=== PATIENT | male | born 1955 | race Caucasian/White ===

== ENCOUNTER 2022-05-13 13:58 | Outpatient (CLI) | payer MEDICARE, OTHER, SELFPAY ==
--- NOTE | 2022-05-14 10:12 | WPDPFTINT ---
PFT Procedure Performed PFT Procedure Performed Spirometry with Pre/Post Bronchodilator Plethysmography (Lung Vol) Diffusing Cap (DLCO) Flow Vol Loop PFT Interpretation DOS: 05/13/2022 REQUESTING: Marie Marinelli [facility] REASON FOR TESTING: Dyspnea PULMONARY FUNCTION TESTS Results are reliable and reproducible. Spirometry: Pre-bronchodilator FEV1 is 2.93 L, 86% predicted, normal. Pre-bronchodilator FVC is 4.55 L, 102%, normal. FEV1:FVC ratio is 64%, lower limit of normal. After bronchodilator administration, there is a 9% drop in FEV1 and 7% drop in FVC. The FEV1:FVC ratio is 63%, decreased. These changes are not statistically significant. Lung volumes: Total lung capacity is 7.39 L, 105%, normal. Residual volumes is 2.84 L, 121%, noraml. RV/TLC is 38%, normal. Diffusion: DLCO 25.3, 93%, normal. DLCO/VA 4.01, 98%, normal. Flow volume loop: Normal. IMPRESSION: Normal spirometry, lung volumes and diffusion. He has borderline airflow obstruction with FEV1 at the lowest end of normal, which decreases slightly with bronchodilator. This does not preclude use of a bronchodilator if he responds clinically. No prior studies for comparison. Beatriz Carrasco MD
--- NOTE | 2022-05-14 10:19 | P.PCNSIX_ITS ---
Six Minute Walk Procedure Procedure Performed Pulmonary Stress Test (6 min walk) Six Minute Walk Six Minute Walk: DOS: 05/13/2022 REQUESTING: ENRIQUE Oliva REASON: Dyspnea SIX MINUTE WALK This test was conducted per ATS standards. The patient has an initial saturation of 93% and pulse of 93. He walked while breathing room air and using a walk aid due to his hip. Lowest saturation was 89% briefly. Heart rate varied from 73- 105. He did not require supplemental O2 during the test. He completed 182.8 meters, 600 feet which is less than normal. His Susan dyspnea rating was 1, low. Saturation at end of recovery was 95%, and pulse was 98. IMPRESSION: No supplemental O2 indicated with exertion. Distance walked is less than predicted. Beatriz Carrasco MD
== END 2022-05-13 13:59 | disposition home or self-care (01) ==
PROVIDERS: PCP Physician Assistant; Visit Provider Nurse Practitioner
DX: R06.09 Other forms of dyspnea (principal)
CPT/HCPCS: 94060; 94618; 94726; 94729

== ENCOUNTER 2022-05-14 13:16 | Outpatient (CLI) | payer MEDICARE, OTHER, SELFPAY ==
--- NOTE | ~2022-05-14 | CT_ITS ---
EXAMINATION:CT lung screening DATE: 05/14/2022 13:35 INDICATION: Personal history of nicotine dependence. Current smoker with 94 pack year history. TECHNIQUE: Computed tomography (CT) of the chest was performed without intravenous contrast. Automate d exposure control and iterative reconstruction technique were employed. The dose-length product (DLP ) was 398.75 mGy-cm. COMPARISON: None. FINDINGS: There is mild emphysema. There is minimal atelectasis bilaterally. There is a 6 mm groundgl ass opacity in left upper lobe. Calcified right lung nodules are consistent with old granulomatous di sease. There is a 2 mm nodule in left upper lobe. No pleural effusion. The heart size is normal. Ther e are coronary artery calcifications. No pericardial effusion. There is diffuse hepatic steatosis. Mi ld aortic atherosclerosis is noted. There is mild thoracic spondylosis. There is an old fracture of T 1 spinous process with nonunion. IMPRESSION: 1. Lung-RADS category 2: Benign appearance or behavior. Continue annual screening with noncontrast lo w-dose chest CT in 12 months. Reviewed, dictated and finalized at location A. RECOVERY UNIT OPERATOR IMPRESSION: 1. Lung-RADS category 2: Benign appearance or behavior. Continue annual screeni ng with noncontrast low-dose chest CT in 12 months.
== END 2022-05-14 13:17 | disposition home or self-care (01) ==
LOC: ANHIMG 13:17
PROVIDERS: PCP Physician Assistant; Visit Provider Nurse Practitioner
DX: Z12.2 Encounter for screening for malignant neoplasm of respiratory organs (principal); Z87.891 Personal history of nicotine dependence
CPT/HCPCS: 71271

== ENCOUNTER 2022-06-01 18:11 | Inpatient (IN) | payer MEDICARE, OTHER, SELFPAY ==
[2022-06-01] VITALS (9 sets, daily range): BP systolic 150–155; BP diastolic 94–105; PULSE 90–118; RESP 14–27; TEMP 36.7; O2SAT 92–100
--- NOTE | ~2022-06-01 | XR_ITS ---
EXAMINATION: XR chest 2V Exam Date/Time: 06/01/2022 18:50 CDT HISTORY: chest pain, COUGH Comparison: 10/03/2013. RESULT: Lines, tubes, and devices: None. Lungs and pleura: Lateral view severely limited by degree of inspiration and summation artifact. Seg mental and subsegmental bibasilar opacities. Left costophrenic angle blunting. Cardiomediastinal silhouette: Stable. Other: No acute osseous or upper abdominal finding. IMPRESSION: Bibasilar consolidation may represent pneumonia in the appropriate clinical context. Small left pleur al effusion. Reviewed, dictated and finalized at location K. IMPRESSION: Bibasilar consolidation may represent pneumonia in the appropriate clinical con text. Small left pleural effusion.
--- NOTE | ~2022-06-01 | XR_ITS ---
Portable chest x-ray Comparison: 06/01/2022 Clinical History: Shortness of breath Findings: There is extensive bibasilar and perihilar groundglass pulmonary disease, worsened from pr ior exam. No definite pleural effusions. Cardiomediastinal silhouette is stable. Bones and soft tiss ues are unremarkable. Impression: Worsening presumed bibasilar/perihilar pulmonary edema. Coracoclavicular infection. Reviewed, dictated and finalized at location M. Impression: Worsening presumed bibasilar/perihilar pulmonary edema. Coracoclavicular infect ion.
--- NOTE | ~2022-06-01 | XR_ITS ---
Portable chest x-ray Comparison: 06/02/2022 Clinical History: Wheezing Findings: Questionable minimal residual pulmonary edema. Pulmonary findings are significantly improv ed from prior exam. No pleural effusion. Cardiomediastinal silhouette is stable. Bones and soft tiss ues are unremarkable. Impression: Possible minimal residual pulmonary edema. Pulmonary findings are significantly improved from prior e xam. Reviewed, dictated and finalized at location . Impression: Possible minimal residual pulmonary edema. Pulmonary findings are significantly improved from prior exam.
--- NOTE | ~2022-06-01 | CT_ITS ---
EXAMINATION: CTA chest PE protocol DATE: 06/02/2022 13:56 INDICATION: Dyspnea. Elevated d-dimer. TECHNIQUE: Computed tomography (CT) pulmonary angiogram of the chest was performed with 100 mL Omnipa que-350 intravenous contrast. Additional 3D reconstructions utilizing coronal maximum intensity proje ction (MIP) were performed. Automated exposure control and iterative reconstruction technique were em ployed. The dose-length product was 1139.93 mGy-cm. COMPARISON: None FINDINGS: . contrast opacification of the pulmonary arteries. There is mild streak artifact from dense contrast in the superior vena cava and right atrium. Mild scattered respiratory motion artifact which decreas es sensitivity in some of the smaller subsegmental pulmonary arteries. No pulmonary embolism. Small b ilateral posterior layering pleural effusions with associated dependent compressive atelectasis in th e bilateral upper and more prominently in the lower lobes. Additional mild discoid atelectasis at the right middle lobe and lingula. No pneumonia. Mild smooth septal line thickening at the apices and toby ng bases consistent with mild pulmonary edema. Heart size is normal. Atherosclerotic coronary artery calcific lesion. No pericardial effusion. Thoracic aorta is normal in caliber. No pathologically enla rged thoracic lymphadenopathy. Diffuse hepatic steatosis. Mild thoracic spondylosis. IMPRESSION: 1. No pulmonary embolism. 2. Mild pulmonary edema and small bilateral posterior layering pleural effusion with associated bilat eral dependent compressive atelectasis. Reviewed, dictated and finalized at location L. IMPRESSION: 1. No pulmonary embolism. 2. Mild pulmonary edema and small bilateral posterior layering pleural effusion with associated bilateral dependent compressive atelectasis.
--- NOTE | 2022-06-01 18:33 | ECG_ITS ---
Measurements Intervals [place] Rate: 100 P: VA: 0 QRS: -14 QRSD: 101 T: 31 QT: 396 QTc: 512 Interpretive Statements ATRIAL FIBRILLATION WITH RAPID VENTRICULAR RESPONSE DELAYED PRECORDIAL R/S TRANSITION NONSPECIFIC T-WAVE ABNORMALITY- HIGH LATERAL LEADS ABNORMAL ECG NO PREVIOUS ECG AVAILABLE FOR COMPARISON Electronically Signed On 06-02-2022 0:42:31 CDT by Abilio Juarez D.O.
[2022-06-01] MEDS: ASPIRIN 81 MG CHEWABLE TABLET 324 MG PO (18:47)
[2022-06-01 18:55] LABS: Basophils Absolute Auto 0.1 K/mm3 (0.0-0.1); Basophils Percent Auto 0.8 % (0.2-1.2); Eosinophils Absolute Auto 0.1 K/mm3 (0-0.3); Eosinophils Percent Auto 1.4 % (0-4.4); Hematocrit 40.5 % (42.0-52.0); Hemoglobin 13.4 g/dL (14.0-18.0); Immature Granulocyte Absolute 0.03 K/mm3 (0.00-0.031); Immature Granulocyte Percent A 0.3 % (0-0.5); Lymphocytes Absolute Auto 1.86 K/mm3 (0.9-3.2); Lymphocytes Percent Auto 21.1 % (18.3-44.2); Mean Corpuscular HGB Conc 33.1 g/dl (32-36); Mean Corpuscular Hemoglobin 29.9 pg (26-34); Mean Corpuscular Volume 90.4 fl (80-100); Mean Platelet Volume 9.2 fl (7.4-10.4); Monocytes Absolute Auto 0.6 K/mm3 (0.1-0.6); Monocytes Percent Auto 6.3 % (2.6-8.5); Neutrophils Absolute Auto 6.2 K/mm3 (1.3-6.7); Neutrophils Percent Auto 70.1 % (45.5-73.1); Platelet Count Result 276 k/mm3 (150-375); Red Blood Count 4.48 M/mm3 (4.6-6.20); Red Cell Distribution Width 14.5 % (11.5-14.5); White Blood Count 8.8 K/mm3 (4.5-10.0)
[2022-06-01 19:04] LABS: Alanine Aminotransferase 44 U/L (6-50); Alkaline Phosphatase 83 U/L (38-126); Anion Gap 5 mmol/L (8-16); Aspartate Amino Transferase 47 U/L (17-59); Bilirubin,Total 0.6 mg/dL (0.2-1.3); Blood Urea Nitrogen 12 mg/dL (9-20); Calcium 8.8 mg/dL (8.4-10.2); Carbon Dioxide 30 mmol/L (22-30); Chloride 102 mmol/L (98-107); Estimated Glomerular Filt Rate > 60; Glucose 188 mg/dL (65-110); Lipase 44 U/L (23-300); Potassium 3.3 mmol/L (3.4-5.0); Sodium 137 mmol/L (137-145)
[2022-06-01 19:05] LABS: INR 1.2; Prothrombin Time 14.4 Seconds (11.1-14.7)
[2022-06-01 19:16] LABS: Troponin I < 0.012 ng/mL (0.000-0.034)
[2022-06-01] MEDS: IPRATROPIUM BR 0.02% INH SOLN 0.5 MG/2.5 ML VIAL INHALATION (19:40)
[2022-06-01] MEDS: ALBUTEROL SULFATE NEB 2.5 MG/3 ML INH INHALATION (19:41)
--- NOTE | 2022-06-01 19:46 | ED.GENADULT ---
HPI - General Adult General Chief complaint: Shortness of Breath/Dyspnea Stated complaint: sob, weakness Time Seen by Provider: 06/01/22 19:17 History of Present Illness HPI narrative: Patient 67-year-old gentleman who presents the emergency department with chief complaint of shortness of breath. Patient reports that for some time he has been short of breath and reports has been coughing more. The patient also reports that he has had some discomfort in his chest and decided to call EMS today to be transported to the emergency department. Patient was placed on oxygen prehospital and is currently on oxygen at this time the patient reports that he is not on home oxygen. The patient denies fever reports that he has had a dry cough its been nonproductive. Patient denies history of CHF Related Data Home Medications Medication Instructions Recorded Confirmed aspirin 81 mg tablet,delayed 81 mg PO DAILY 03/27/19 04/28/22 release (Adult Aspirin Regimen) clonazepam 0.5 mg tablet 0.5 mg PO BID PRN 03/27/19 04/28/22 loratadine 10 mg tablet (Allergy 10 mg PO DAILY 03/27/19 04/28/22 Relief (loratadine)) cholecalciferol (vitamin D3) 250 8,000 unit PO DAILY 07/18/19 04/28/22 mcg (10,000 unit) capsule mecobalamin (vitamin B12) 5,000 1,200 mcg PO 07/18/19 04/28/22 mcg disintegrating tablet melatonin 3 mg capsule PO .qhs 10/10/19 04/28/22 bupropion HCl 150 mg tablet,12 hr 150 mg PO DAILY 01/15/20 04/28/22 sustained-release diphenhydramine HCl 25 mg tablet 75 mg PO BID PRN 01/15/20 04/28/22 (Benadryl Allergy) paliperidone 6 mg tablet,extended 6 mg PO DAILY 01/15/20 04/28/22 release 24 hr trazodone 100 mg tablet 100 mg PO QPM 01/15/20 04/28/22 Allergies Allergy/AdvReac Type Severity Reaction Status Date / Time niacin Allergy Mild Flushing Verified 04/28/22 14:13 Sulfa (Sulfonamide Allergy Unknown Unknown Verified 04/28/22 14:13 Antibiotics) lactose milk products AdvReac Intermediate GI upset Uncoded 04/28/22 14:13 Review of Systems Review of Systems: A 10 system review of systems was completed on the patient and is negative except for what is stated in the HPI. Nursing and ancillary documentation was reviewed. [facility] Past Medical History Medical History Acquired hypothyroidism Atrial fibrillation Coronary artery disease Morbid obesity with BMI of 40.0-44.9, adult Poor dentition Type 2 DM with CKD stage 3 and hypertension Family History Family History Mother Depression Hypertension Family history of arthritis Diabetes mellitus Father Family history of alcoholism Sibling Family history of alcoholism Grandparent Family history of cardiovascular disease Social History Social History Smoking packs per day: 1 Smoking cigarettes per day: 20.0 Smoking status: Current every day smoker Alcohol intake: never Exam Narrative: GENERAL: Well-appearing, well-nourished, and in no acute distress. HEAD: Normocephalic, atraumatic. EYES: PERRLA and EOMI. ENT: Nares clear, no rhinorrhea or epistaxis. Mucous membranes moist. NECK: Supple. CHEST: Clear to auscultation. No respiratory distress. HEART: Regular rate and rhythm. No murmur heard. Normal peripheral pulses. ABDOMEN: Soft, nontender, nondistended, normal active bowel sounds. EXTREMITIES: Normal range of motion. +1 edema. SKIN: Warm, dry, no rash. NEURO: No focal deficits. Alert and oriented x3. PSYCH: Normal mood and affect. Course Vital Signs Vital signs: Vital Signs Temperature 36.7 C 06/01/22 18:24 Pulse Rate 90 06/01/22 18:24 Respiratory Rate 27 H 06/01/22 18:24 Blood Pressure 152/105 H 06/01/22 18:24 Pulse Oximetry 93 06/01/22 18:24 Oxygen Delivery Room Air 06/01/22 18:24 Temperature 36.7 C 06/01/22 18:24 Pulse Rate
[2022-06-01 20:36] LABS: Lactic Acid Reflex 1.1 mmol/L (0.7-2.0)
[2022-06-01 20:46] LABS: NT Pro B Type Natriuretic Pept 2660 pg/mL (19.9-100)
[2022-06-01 21:03] LABS: Influenza A QL RT-PCR Negative (Negative); Influenza B QL RT-PCR Negative (Negative); RSV RNA, RT-PCR Negative (Negative); SARS-CoV-2 RNA PCR Negative
[2022-06-01 21:10] LABS: Procalcitonin 0.1 ng/mL
--- NOTE | 2022-06-01 21:23 | PC.NURSE ---
pt. requesting medication for neuropathy, ERP made aware no further orders.
--- NOTE | 2022-06-01 21:42 | PM.IMHP ---
H&P: HPI History of Present Illness Date/Time: 06/01/22 21:42 Chief Complaint: Shortness of breath Narrative: This is an 67-year-old male with past medical history significant for COPD/emphysema, patient smokes 2 packs of cigarettes daily, obesity, type 2 diabetes mellitus, orally controlled, generalized anxiety disorder, dyslipidemia, coronary artery disease, atrial fibrillation. Patient comes to the emergency room after having 3 days of dry cough, chest congestion, shortness of breath, generalized malaise, fevers, chills, poor appetite, muscle aches and pains, generalized weakness, fatigue. In emergency room patient had low oxygen saturation was placed on supplemental oxygen by nasal cannula on route to the hospital. X-ray of the chest was reported as: IMPRESSION: Bibasilar consolidation may represent pneumonia in the appropriate clinical context. Small left pleural effusion. Review of Systems Review of Systems: Generalized malaise, muscle aches and pains, shortness of breath, cough, chest congestion, poor appetite. Constitutional: Constitutional: Reports chills, Reports fatigue, Reports fever(s), Reports lethargy, Reports malaise, Reports poor appetite and Reports weakness Eyes: Eyes: Denies change in vision ENT: Denies dysphagia and Denies odynophagia Cardiovascular: Cardiovascular: Reports chest pain, Denies radiating jaw, neck or arm pain and Denies palpitations Respiratory: Respiratory: Denies change in phlegm color, Reports chest congestion, Reports cough, Denies excessive phlegm production, Reports dyspnea and Reports wheezing Gastrointestinal: Gastrointestinal: Denies abdominal pain, Denies dyspepsia, Denies heartburn, Denies diarrhea, Denies nausea and Denies vomiting Genitourinary: Genitourinary: Denies dysuria Musculoskeletal: Musculoskeletal: Reports muscle weakness Integumentary/Breasts: Skin/Breast: Denies rash Neurologic: Denies focal weakness and Denies Sensory deficit (Neuro) Psychiatric: Psychiatric: Reports no additional psychiatric complaints and Reports as per HPI Endocrine: Endocrine: Denies cold intolerance, Denies flushing, Denies heat intolerance, Denies polyphagia, Denies polydipsia and Denies palpitations Hematologic/Lymphatic: Hematologic/Lymphatic: Reports no additional hematologic/lymphatic complaints and Reports as per HPI Allergic/Immunologic: Allergic/Immunologic: Reports no additional allergic/immunologic complaints and Reports as per HPI [facility] Past Medical History Medical History Acquired hypothyroidism Atrial fibrillation Coronary artery disease Morbid obesity with BMI of 40.0-44.9, adult Poor dentition Type 2 DM with CKD stage 3 and hypertension Family History Family History Mother Depression Hypertension Family history of arthritis Diabetes mellitus Father Family history of alcoholism Sibling Family history of alcoholism Grandparent Family history of cardiovascular disease Social History Social History Smoking packs per day: 2 Smoking cigarettes per day: 40.0 Years smoked: 47 Smoking pack-years: 94.00 Smoking status: Current every day smoker Tobacco type: cigarettes Second hand tobacco smoke exposure: Yes Alcohol intake: never Substance use: never Substance use type: does not use Lack of Transportation: No Lack of Food: Never True Current Housing: I Have Housing Concerned About Future Housing: No Difficulty Paying Gas/Electric Bills: No Difficulty Paying for Meds: No Currently Unemployed: No Education: High School Diploma/GED Difficulty w/ Childcare or Family Care: No Spiritual care concerns: No Meds Home Medications and Allergies Home Medications Medication Instructions Recorded Confirmed Type aspirin 81 mg tablet,delaye
--- NOTE | 2022-06-01 22:00 | PC.NURSE ---
pt. requesting to take anxiety medications that he has in his room. DANIEL COSTA okay for pt. to take 25 mg tab po hydroxizine.
[2022-06-01 23:09] LABS: Troponin I < 0.012 ng/mL (0.000-0.034)
[2022-06-01 23:34] LABS: Appearance Urine Clear (Clear); Bacteria Urine None Seen /hpf; Bilirubin Urine Negative (Negative); Blood Urine Negative (Negative); Color Urine Yellow (Yellow); Glucose Urine UA 3+ mg/dL (Negative); Ketones Urine Negative (Negative); Leukocyte Esterase Ur Negative LEU/UL (Negative); Need Manual Microscopic Reviewed; Nitrate Urine Negative (Negative); Non Pathogenic Casts 0-2; Protein Urine 1+ mg/dL (Negative); RBC Urine 0-2 /hpf (0-2); Specific Grav Ur 1.037 (1.001-1.035); Squamous Epithelial Cell Urine None seen /hpf (Few); Urobilinogen Urine 0.2 mg/dL (<2.0); WBC Urine 0-5 /hpf; pH Urine 5.5 (5.0-9.0)
[2022-06-01 23:35] LABS: Add Urine Microscopic? YES
--- NOTE | 2022-06-01 23:57 | ADMGEN ---
This patient, Cas Ruiz, was admitted to Medical Room 254-01. Patient/family oriented to hospital policies and general routines including ID bracelet, bed and alarms, visiting hours, pain management, procedures, bathroom and other care routines, personal items, smoking policy, room service/diet, and visiting hours. Information on how to activate the Rapid Response Team has been discussed. Patient/Family are encouraged to report perceived risks to care and to ask questions if they do not understand what they are told or what they should do.
[2022-06-02] VITALS (46 sets, daily range): BP systolic 143–180; BP diastolic 86–138; PULSE 86–138; RESP 18–38; TEMP 36.2–37.2; O2SAT 92–100; BMI 57.1
--- NOTE | 2022-06-02 | ECHO_ITS ---
Patient Info Name: Cas Ruiz Age: 67 years : 1955 Gender: Male Ht: 72 in Wt: 292 lbs BSA: 2.65 m2 HR: 130 bpm BP: 154 / 104 mmHg Heart Rhythm: Atrial Fibrillation Technical Quality: Fair Exam Date: 06/02/2022 11:23 AM Exam Location: [facility] Card Pulmonary Patient Status: Inpatient Admit Date: 06/02/2022 Staff Ordering Physician: Francheska Valles APRN Blueprint Blocker: Antonio Louis RDCS, RT Attending Provider: Soo Guzman MD Referring Physician: Reena ACEVES; Exam Type: CA echo dop color flow w con Study Info Indications R60.0 - Localized edema J90 - Pleural effusion, not elsewhere classified R06.00 - Dyspnea, unspecified Complete two-dimensional, color flow and Doppler transthoracic echocardiogram is performed with contrast to opacify the left ventricle and to improve the deliniation of the left ventricle endocardial borders. Summary 1. Left ventricular systolic function is severely globally reduced, estimated at 30-35%. 2. Definity contrast administered improved wall motion interpretation. 3. Left ventricular chamber dimension is moderately enlarged. 4. There is mildly increased left ventricular wall thickness. 5. The left ventricular diastolic function is normal. 6. E/e' 9 is minimally elevated. 7. Right ventricular systolic function is mildly reduced and with abnormal TAPSE 1.6 cm. 8. Left atrial chamber dimension is mildly enlarged. 9. There is mild mitral valve regurgitation. 10. There is mild tricuspid valve regurgitation. 11. There is trivial pericardial effusion. Left Ventricle E/e' 9 is minimally elevated. Definity contrast administered improved wall motion interpretation. Left ventricular systolic function is severely globally reduced, estimated at 30-35%. Left ventricular chamber dimension is moderately enlarged. There is mildly increased left ventricular wall thickness. The left ventricular diastolic function is normal. Right Ventricle Right ventricular systolic function is mildly reduced and with abnormal TAPSE 1.6 cm. Right ventricular chamber dimension is normal. Left Atria Left atrial chamber dimension is mildly enlarged. Right Atria Right atrial chamber dimension is normal. Aortic Valve The aortic valve is trileaflet. There is no aortic valve stenosis. There is no aortic valve regurgitation. Pulmonic Valve There is no pulmonic regurgitation. Mitral Valve There is no mitral valve stenosis. There is mild mitral valve regurgitation. Tricuspid Valve RVSP is not calculated due to an inadequate TR jet. There is mild tricuspid valve regurgitation. Pericardium/Pleural There is trivial pericardial effusion. Inferior Vena Cava Normal inferior vena cava with >50% collapse upon inspiration consistent with normal right atrial pressure, 5 mmHg. Aorta The aortic root size at the sinus of Valsalva is normal. Left Ventricular Outflow Tract Name Value Normal LVOT 2D LVOT Diameter 2.09 cm LVOT Doppler LVOT Peak Gradient 2 mmHg LVOT Mean Gradient 1 mmHg LVOT VTI
[2022-06-02] MEDS: ALBUTEROL SULFATE NEB 2.5 MG/3 ML INH INHALATION ×4 (01:11→11:12)
[2022-06-02] MEDS: IPRATROPIUM BR 0.02% INH SOLN 0.5 MG/2.5 ML VIAL INHALATION ×7 (01:12→23:22)
[2022-06-02] MEDS: MELATONIN 5 MG TABLET PO ×2 (01:17→20:57)
[2022-06-02] MEDS: traZODone HCL 50 MG TABLET 100 MG PO ×2 (01:17→20:56)
[2022-06-02] MEDS: METOPROLOL TARTRATE 50 MG TAB PO ×4 (01:17→21:00)
[2022-06-02 02:43] LABS: Troponin I < 0.012 ng/mL (0.000-0.034)
[2022-06-02 02:51] LABS: Glucose Point of Care 152 mg/dl (65-105)
[2022-06-02] MEDS: clonazePAM (*CRX) 0.5 MG TABLET PO (03:17)
[2022-06-02] MEDS: hydrOXYzine HCL 25 MG TABLET PO ×3 (06:53→21:00)
[2022-06-02] MEDS: FUROSEMIDE INJ 40 MG/4 ML VIAL IV PUSH ×2 (07:30→16:52)
[2022-06-02] MEDS: methylPREDNISolone SOD SUCC 125 MG VIAL IV PUSH (07:30)
[2022-06-02 07:32] LABS: Glucose Point of Care 206 mg/dl (65-105)
[2022-06-02 07:40] LABS: Alveolar/Arterial O2 Gradient 529.2 mmHg; Base Excess ABG -0.4 mEq/l (+/-2.0); Fractional Inspired Oxygen 100 %; HCO3 ABG 25.4 mEq/l (22.0-26.0); Oxygen Saturation ABG 98.6 % (95.0-100.0); Oxyhemoglobin 96.9 % THb (90.0-100.0); PCO2 ABG 46.4 mmHg (35.0-45.0); PO2 ABG 137.4 mmHg (80.0-100.0); PO2 FiO2 Ratio Arterial Blood 1.37 %; Total Hemoglobin 13.8 g/dL (12.0-18.0); pH ABG 7.357 (7.350-7.450)
[2022-06-02 07:41] LABS: Device NON-REBREATHER MASK; Site Drawn RIGHT BRACHIAL
[2022-06-02 07:41] LABS: Hematocrit 40.7 % (42.0-52.0); Hemoglobin 13.4 g/dL (14.0-18.0); Mean Corpuscular HGB Conc 32.9 g/dl (32-36); Mean Corpuscular Hemoglobin 29.9 pg (26-34); Mean Corpuscular Volume 90.8 fl (80-100); Mean Platelet Volume 9.4 fl (7.4-10.4); Platelet Count Result 287 k/mm3 (150-375); Red Blood Count 4.48 M/mm3 (4.6-6.20); Red Cell Distribution Width 14.5 % (11.5-14.5); White Blood Count 11.1 K/mm3 (4.5-10.0)
--- NOTE | 2022-06-02 07:46 | PM.IMPN ---
Progress Note: A&P Assessment and Plan (1) Acute respiratory failure with hypoxia: Code(s): J96.01 - Acute respiratory failure with hypoxia Status: Acute Assessment and Plan: Patient requiring supplemental oxygen by nasal cannula upon arrival to ED. No home O2 use. 06/02 worsening respiratory status and placed on bipap. pH 7.38, pCO2 mildly elevated 46, pO2 137 on 15L NRB, bicab not elevated suggesting acute process. Continue bipap 15/8/20/100% and titrate FiO2 to landy >90%. Consult pulmonology. Continue management for COPD and pneumonia. D-dimer elevated 1.74. CTA chest shows no PE, mild pulmonary edema and small but lateral posterior layering pleural effusions with associated bilateral dependent compressive atelectasis. (2) Pneumonia: Code(s): J18.9 - Pneumonia, unspecified organism Status: Acute Assessment and Plan: 06/02 Chest x-ray with acute worsening of bilateral infiltrates Given worsening pneumonia will escalate therapy. Patient has COPD and will given dual anti-pseudomonas coverage with Cefepime 2 grams IV Q8 hours and Levaquin 750 mg Q24 hours. check legionella, mycoplasma, pneumococcal antigens and sputum culture Check MRSA nasal swab. No MRSA risk factors apparent. lactic acid 1.1 on admission, WBC 8 to 11, Blood cultures pending. (3) COPD (chronic obstructive pulmonary disease): Code(s): J44.9 - Chronic obstructive pulmonary disease, unspecified Status: Acute Assessment and Plan: FEV1:FVC 63% with borderline airflow obstruction FEV1 on 05/14/22 PFTs. No wheezing on exam. Given solumedrol 125 mg IV x1. Will hold off on steroids at this time given worsening pneumonia. Duonebs Q4 hours. Pulmonology consulted. Etl Consultant to quit smoking. (4) PAF (paroxysmal atrial fibrillation): Code(s): I48.0 - Paroxysmal atrial fibrillation Status: Acute Assessment and Plan: Patient with afib RVR 120s, likely worsened since patient reportedly did not take medications prior to admission and with worsening pneumonia. Check TSH. Continue management of pneumonia. Monitor telemetry. Increase metoprolol 50 mg q.8 hours and continue Eliquis. Consult Cardiology if persists or worsens. Check Echocardiogram (5) Tobacco abuse: Code(s): Z72.0 - Tobacco use Status: Chronic Assessment and Plan: Nicotine patch as needed (6) CASI on CPAP: Code(s): G47.33 - Obstructive sleep apnea (adult) (pediatric); Z99.89 - Dependence on other enabling machines and devices Status: Chronic Assessment and Plan: Currently on bipap (7) Morbid obesity with BMI of 40.0-44.9, adult: Code(s): E66.01 - Morbid (severe) obesity due to excess calories; Z68.41 - Body mass index [BMI] 40.0-44.9, adult Status: Acute Assessment and Plan: Lifestyle and diet modifications (8) Type 2 DM with CKD stage 3 and hypertension: Code(s): E11.22 - Type 2 diabetes mellitus with diabetic chronic kidney disease; I12.9 - Hypertensive chronic kidney disease with stage 1 through stage 4 chronic kidney disease, or unspecified chronic kidney disease; N18.30 - Chronic kidney disease, stage 3 unspecified Status: Chronic Assessment and Plan: Carb consistent 1800 calorie diet. Accu-checks AC/HS with moderate aspart sliding scale. Continue SGLT-2 and DPP-4. Goal 140-180 (9) Major depressive disorder in partial remission: Qualifiers: Major depression recurrence: recurrent Qualified Code(s): F33.41 - Major depressive disorder, recurrent, in partial remission Code(s): F32.4 - Major depressive disorder, single episode, in partial remission Status: Chronic Assessment and Plan: With anxiety, Continue home meds (10) Coronary artery disease: Qualifiers: Associated angina: without angina Coronary Disease-Associated Artery/Lesion type: circle artery [place] vs. transplanted heart: circle heart Qualified Code(s):
[2022-06-02 07:54] LABS: Alanine Aminotransferase 41 U/L (6-50); Alkaline Phosphatase 83 U/L (38-126); Anion Gap 7 mmol/L (8-16); Aspartate Amino Transferase 43 U/L (17-59); Bilirubin,Total 0.8 mg/dL (0.2-1.3); Blood Urea Nitrogen 12 mg/dL (9-20); Calcium 8.7 mg/dL (8.4-10.2); Carbon Dioxide 28 mmol/L (22-30); Chloride 103 mmol/L (98-107); Estimated CRCL calculation 76 ml/min; Estimated Glomerular Filt Rate > 60; Glucose 203 mg/dL (65-110); Potassium 3.2 mmol/L (3.4-5.0); Sodium 138 mmol/L (137-145)
--- NOTE | 2022-06-02 08:15 | PC.NURSE ---
This patient, Cas Ruiz, was received from [[phone] ] on 06/02/22 at 0805. Patient/family oriented to unit policies and routines
[2022-06-02 08:53] LABS: CRP 3.3 mg/dL (<1.0); Magnesium 1.7 mg/dL (1.6-2.3)
[2022-06-02 08:56] LABS: Hemoglobin A1C 9.4 % (<5.7)
[2022-06-02 09:00] LABS: D Dimer 1.75 ug/mL (<0.48)
[2022-06-02 09:18] LABS: Lactic Acid Reflex 1.3 mmol/L (0.7-2.0)
[2022-06-02] MEDS: CEFEPIME 2 GM/NS 50 ML 2 GM/50 ML BAG IVPB ×2 (09:30→16:52)
[2022-06-02] MEDS: POTASSIUM CHLORIDE INJ 40 MEQ in SODIUM CHLORIDE 0.9% IV 500 ML 130 MEQ IVPB (10:25)
[2022-06-02] MEDS: POTASSIUM CHLORIDE 20 MEQ TABLET 40 MEQ PO (12:12)
[2022-06-02 12:13] LABS: Glucose Point of Care 225 mg/dl (65-105)
[2022-06-02] MEDS: PANTOPRAZOLE 40 MG TABLET BY MOUTH (12:13)
[2022-06-02] MEDS: PARoxetine 20 MG TABLET 40 MG PO (12:13)
[2022-06-02] MEDS: buPROPion HCL SR (12 HR) 150 MG TAB PO (12:13)
[2022-06-02] MEDS: MAGNESIUM OXIDE 400 MG TABLET PO ×2 (12:13→16:54)
[2022-06-02] MEDS: PRAVASTATIN SODIUM 20 MG TABLET PO (12:14)
[2022-06-02] MEDS: APIXABAN 5 MG TABLET BY MOUTH ×2 (12:14→16:50)
[2022-06-02] MEDS: EMPAGLIFLOZIN 10 MG TABLET BY MOUTH (12:14)
[2022-06-02] MEDS: ASPIRIN 81 MG ENTERIC TABLET PO (12:14)
[2022-06-02] MEDS: INSULIN ASPART (*BKC) 100 UNITS/ML SUB-Q (12:26)
--- NOTE | 2022-06-02 13:05 | PC.NURSE ---
Spoke with CAMRON Jc regarding patient's elevated BP. New order for 5mg IVP Lopressor x1 now
[2022-06-02] MEDS: METOPROLOL TARTRATE INJ 5 MG/5 ML VIAL IV PUSH (13:10)
--- NOTE | 2022-06-02 14:23 | PC.NURSE ---
Spoke with CAMRON Jeronimo regarding patient's BP. After 5mg Lopressor IVP pt's BP is 180/104. New order for 0.5mg Ativan IVP x1 now.
[2022-06-02] MEDS: LORazepam INJ (*CRX) 2 MG/ML VIAL 0.5 MG IV PUSH (14:27)
[2022-06-02 16:28] LABS: Alveolar/Arterial O2 Gradient 317.8 mmHg; Base Excess ABG 0.5 mEq/l (+/-2.0); Carboxyhemoglobin 0.1 % THb (0-2.0); Fractional Inspired Oxygen 60 %; HCO3 ABG 25.1 mEq/l (22.0-26.0); Methemoglobin ABG 0.3 %THb (0-1.5); Oxygen Content ABG 18.8 %vol (16.0-22.0); Oxygen Saturation ABG 93.3 % (95.0-100.0); Oxyhemoglobin 92.2 % THb (90.0-100.0); PCO2 ABG 40.2 mmHg (35.0-45.0); PO2 ABG 65.8 mmHg (80.0-100.0); Reduced Hemoglobin 7.4 %THb (0-5.0); Total Hemoglobin 14.5 g/dL (12.0-18.0); pH ABG 7.413 (7.350-7.450)
[2022-06-02 16:30] LABS: Device HIGH FLOW NASAL CANN; Modified Allen's Test Pass; Site Drawn RIGHT RADIAL
[2022-06-02 16:51] LABS: Glucose Point of Care 189 mg/dl (65-105)
--- NOTE | 2022-06-02 19:21 | PHAR ---
PT'S HOME MED PALIPERIDONE ER 6 MG TABS VERIFIED BY PHARMACY
--- NOTE | 2022-06-02 19:40 | PM.CNPUL ---
Assessment and Plan Assessment and plan (1) Acute respiratory failure with hypoxia: Code(s): J96.01 - Acute respiratory failure with hypoxia Status: Acute Assessment and Plan: This 67-year-old man is admitted with suspected pneumonia, had rapid atrial fibrillation due to respiratory distress, mild hypercapnea, resolved. He is now on lower O2, on broad coverage for possible pneumonia. His urine antigens are pending. He will need a Home O2 evaluation prior to discharge. I believe that most of his presentation is due to new systolic dysfunction, triggered by poor control of diabetes, hypertension - his BP is 170/100; he has atrial fib which is not new but it is out of control, had rapid atrial fib and a Rapid Response called this morning. I am sure that he is noncomplaint with meds at home. He told me he had a hard time remembering to take his meds. (2) Pneumonia: Code(s): J18.9 - Pneumonia, unspecified organism Status: Acute Assessment and Plan: Possible pneumonia; WBC 11 K, CRP 3.3, on antibiotics an urine antigens are pending. He needs to have cardiology evaluation for systolic dysfunction, and see about trimming back antibiotics as soon as possible. He does not have sputum for analysis. (3) COPD (chronic obstructive pulmonary disease): Code(s): J44.9 - Chronic obstructive pulmonary disease, unspecified Status: Acute Assessment and Plan: Had PFTs 05/14/2022, mild /borderline obstructive airways disease, FEV1/FVC 64% predicted, low end of normal. he is on no COPD medications at home. He would benefot from treatment of COPD with long acting bronchodilators. (4) Tobacco abuse: Code(s): Z72.0 - Tobacco use Status: Chronic Assessment and Plan: Smoking about 2 ppd, at times, more. He is in the hospital, and this is always a good opportunity to implement tobacco cessation with hopes to continue efforts after discharge. He is not on nicotine replacement therapy. This might be useful. (5) CASI on CPAP: Code(s): G47.33 - Obstructive sleep apnea (adult) (pediatric); Z99.89 - Dependence on other enabling machines and devices Status: Chronic Assessment and Plan: Sleep Study (CPAP titration study completed.) - 05/04/2018, optimal pressure was 10 cm, and he may be on that now. Sleep Study (Moderate CASI.) - 03/05/2008 He would benefit from having repeat study as his needs may have changed, luis with new systolic CHF. This is an out patient issue. He is not stable enough for an ApneaLink at this time. He is using BiPAP now in the hospital. Plan Start Trelegy 100, one puff a day. Start spironolactone 12.5 mg BID. Needs more blood pressure control. His metoprolol is now TID. Cardiology consult requested. Home O2 study before discharge. Will need follow up for sleep issues after discharge. His most recent study was 05/04/2018 10 cm CPAP. he says he is compliant. History of Present Illness History of Present Illness Consult date: 06/02/22 Requesting physician: Francheska Valles APRN Chief complaint: Pneumonia, Dyspnea Narrative: patient was seen about 19:45 in 205, IMU NEW CONSULT: Cas Ruiz is a 67-year-old man admitted with increased shortness of breath and swelling which started gradually 6 months ago. He says that his legs have been swelling, he noticed increased weight without increased appetite, increased sleepiness, fatigue, and decreased exercise tolerance. About 3 months ago, he noticed occasional chest pains, sometimes with exertion. He called 911 because he could only walk 10 feet before stopping to rest. In the ER, he said that
[2022-06-02 20:05] LABS: Glucose Point of Care 177 mg/dl (65-105)
[2022-06-03] VITALS (34 sets, daily range): BP systolic 113–145; BP diastolic 64–92; PULSE 85–114; RESP 18–24; TEMP 36.1–37.1; O2SAT 91–98
[2022-06-03] MEDS: CEFEPIME 2 GM/NS 50 ML 2 GM/50 ML BAG IVPB ×3 (02:01→16:46)
[2022-06-03 04:10] LABS: Basophils Percent Auto 0.1 % (0.2-1.2); Hemoglobin 12.7 g/dL (14.0-18.0); Immature Granulocyte Absolute 0.08 K/mm3 (0.00-0.031); Immature Granulocyte Percent A 0.5 % (0-0.5); Lymphocytes Percent Auto 9.3 % (18.3-44.2); Mean Corpuscular HGB Conc 33.4 g/dl (32-36); Mean Corpuscular Hemoglobin 29.4 pg (26-34); Mean Platelet Volume 9.4 fl (7.4-10.4); Monocytes Absolute Auto 0.9 K/mm3 (0.1-0.6); Monocytes Percent Auto 5.8 % (2.6-8.5); Neutrophils Absolute Auto 12.7 K/mm3 (1.3-6.7); Neutrophils Percent Auto 84.3 % (45.5-73.1); Platelet Count Result 292 k/mm3 (150-375); Red Blood Count 4.32 M/mm3 (4.6-6.20); Red Cell Distribution Width 14.1 % (11.5-14.5)
[2022-06-03 04:20] LABS: Alanine Aminotransferase 36 U/L (6-50); Albumin Level 3.9 g/dL (3.5-5.1); Alkaline Phosphatase 71 U/L (38-126); Anion Gap 7 mmol/L (8-16); Aspartate Amino Transferase 34 U/L (17-59); Blood Urea Nitrogen 20 mg/dL (9-20); Calcium 8.8 mg/dL (8.4-10.2); Carbon Dioxide 27 mmol/L (22-30); Chloride 105 mmol/L (98-107); Estimated CRCL calculation 76 ml/min; Estimated Glomerular Filt Rate > 60; Glucose 131 mg/dL (65-110); Magnesium 1.8 mg/dL (1.6-2.3); Potassium 3.8 mmol/L (3.4-5.0); Sodium 139 mmol/L (137-145)
[2022-06-03] MEDS: IPRATROPIUM BR 0.02% INH SOLN 0.5 MG/2.5 ML VIAL INHALATION ×5 (05:12→20:49)
[2022-06-03] MEDS: hydrOXYzine HCL 25 MG TABLET PO ×3 (06:20→21:36)
[2022-06-03] MEDS: METOPROLOL TARTRATE 50 MG TAB PO ×3 (06:20→21:36)
[2022-06-03 08:11] LABS: Glucose Point of Care 137 mg/dl (65-105)
[2022-06-03] MEDS: FLUTICASONE/UMECLIDIN/VILANTER 100-62.5-25 MCG ELLIPTA 1 PUFF INHALATION (08:38)
[2022-06-03] MEDS: CHOLECALCIFEROL 1,000 UNITS TABLET 2000 UNITS PO (08:58)
[2022-06-03] MEDS: PARoxetine 20 MG TABLET 40 MG PO (08:58)
[2022-06-03] MEDS: SPIRONOLACTONE 12.5 MG TABLET PO ×2 (08:58→16:46)
[2022-06-03] MEDS: ASPIRIN 81 MG ENTERIC TABLET PO (08:58)
[2022-06-03] MEDS: EMPAGLIFLOZIN 10 MG TABLET BY MOUTH (08:59)
[2022-06-03] MEDS: PANTOPRAZOLE 40 MG TABLET BY MOUTH (08:59)
[2022-06-03] MEDS: LORATADINE 10 MG TABLET PO (08:59)
[2022-06-03] MEDS: POTASSIUM CHLORIDE 20 MEQ TABLET.ER 40 MEQ PO (08:59)
[2022-06-03] MEDS: MAGNESIUM OXIDE 400 MG TABLET PO ×2 (08:59→16:45)
[2022-06-03] MEDS: buPROPion HCL SR (12 HR) 150 MG TAB PO (08:59)
[2022-06-03] MEDS: APIXABAN 5 MG TABLET BY MOUTH ×2 (09:00→16:45)
[2022-06-03] MEDS: PRAVASTATIN SODIUM 20 MG TABLET PO (09:00)
[2022-06-03] MEDS: FUROSEMIDE INJ 40 MG/4 ML VIAL IV PUSH ×2 (09:00→16:45)
[2022-06-03] MEDS: CYANOCOBALAMIN 500 MCG TABLET PO (09:00)
[2022-06-03 11:47] LABS: Glucose Point of Care 217 mg/dl (65-105)
--- NOTE | 2022-06-03 12:08 | PM.CNCAR ---
Assessment and Plan Assessment and plan (1) Systolic dysfunction: Code(s): I51.9 - Heart disease, unspecified Status: Acute Assessment and Plan: New onset. Euvolemic. Probably non-ischemic with negative troponin due to CASI, chronic rapid atrial fib. Dilated cardiomyopathy. Start Entresto 24-26 mg BID. On Metoprolol. Discuss Life vest and he is interested to prevent sudden cardiac arrest. (2) COPD (chronic obstructive pulmonary disease): Code(s): J44.9 - Chronic obstructive pulmonary disease, unspecified Status: Acute (3) Pneumonia: Code(s): J18.9 - Pneumonia, unspecified organism Status: Acute Assessment and Plan: On antibiotics. (4) Tobacco abuse: Code(s): Z72.0 - Tobacco use Status: Chronic Assessment and Plan: Counseled regarding smoking cessation. (5) Hypertension: Code(s): I10 - Essential (primary) hypertension Status: Acute Assessment and Plan: Mildly high. (6) Dyslipidemia: Code(s): E78.5 - Hyperlipidemia, unspecified Status: Acute Assessment and Plan: On Pravastatin. (7) Atrial fibrillation: Qualifiers: Atrial fibrillation type: unspecified chronic Qualified Code(s): I48.20 - Chronic atrial fibrillation, unspecified Code(s): I48.91 - Unspecified atrial fibrillation Status: Acute Assessment and Plan: [id number] 3. On Eliquis and Metoprolol. Rate control with Metoprolol. (8) Coronary artery disease: Qualifiers: Coronary Disease-Associated Artery/Lesion type: [place] artery [place] vs. transplanted heart: [place] heart Associated angina: without angina Qualified Code(s): I25.10 - Atherosclerotic heart disease of [place] coronary artery without angina pectoris Code(s): I25.10 - Atherosclerotic heart disease of [place] coronary artery without angina pectoris Status: Chronic Assessment and Plan: Stable. History of Present Illness History of Present Illness Consult date/time: 06/03/22 12:08 Reason For Visit: Pneumonia, Dyspnea Narrative: 67 yr old man who is my regular cardiology patient and a patient of CAMRON Mcfarlane, presents to hospital due to sob. He has a history of CAD with 1 stent in 2008 in [facility] (unknown which hospital), atrial fibrillation, DM, hypertension, dyslipidemia, CASI on CPAP (sees PCP). States he go sob with dry cough, and found to have pneumonia and EF 30-35% while previously in 2018 EF 55-60%. Reports LANG walking short distance about 20 feet. He smokes 2 ppd. Denies chest pain, orthopnea, PND, edema, dizziness, palpitations. Cardiovascular Procedures Echo/MUGA:: Echo (EF 55-60%, mild LVH, diastolic dysfunction (E/E' 13), mild biatrial enlargement.) - 03/01/2018 Electrophysiology:: 04/28/22 EKG: Holter (Sinus rhythm, HR range 56-132 bpm; average HR 77 bpm; 387 PAC's, 7 couplets, 41 trigeminy; 4 atrial fib episodes with total duration of 9.8 minutes and HR range 78-132 bpm.) - 04/27/2018 EKG (Atrial fibrillation at 87 bpm.) - 01/31/2018 Stress Tests:: MPI (Lexiscan myoview: Negative for ischemia.) - 06/17/2018 MPI (Lexiscan myoview: Negative for ischemia.) - 10/04/2013 Sleep Study (CPAP titration study completed.) - 05/04/2018 Sleep Study (Moderate CASI.) - 03/05/2008 Review of Systems Review of Systems: All systems reviewed & are unremarkable except as noted in HPI and below Constitutional: Constitutional: Denies chills and Denies fever(s) Cardiovascular: Cardiovascular: Reports as per HPI, Denies chest pain, Denies irregular heart rhythm, Denies leg edema and Denies lightheadedness Respiratory: Respiratory: Reports as per HPI, Reports dyspnea and Reports dyspnea on exertion Gastrointestinal: Gastrointestinal: Reports as per HPI and Denies abdominal pain Genitourinary: Genitourinary: Reports as per HPI and Denies dysuria Musculoskeletal: Musculoskeletal: Reports as per HPI Neurologic: Reports as per
[2022-06-03] MEDS: INSULIN ASPART (*BKC) 100 UNITS/ML SUB-Q (12:38)
--- NOTE | 2022-06-03 15:55 | P.PNIM_ITS ---
Progress Note: A&P Assessment and Plan (1) Acute respiratory failure with hypoxia: Code(s): J96.01 - Acute respiratory failure with hypoxia Status: Acute Assessment and Plan: Patient requiring supplemental oxygen by nasal cannula upon arrival to ED. No home O2 use. 06/02 worsening respiratory status and placed on bipap. pH 7.38, pCO2 mildly elevated 46, pO2 137 on 15L NRB, bicab not elevated suggesting acute process. Continue bipap 15/8/20/100% and titrate FiO2 to landy >90%. Consult pulmonology. Continue management for COPD and pneumonia. D-dimer elevated 1.74. CTA chest shows no PE, mild pulmonary edema and small but lateral posterior layering pleural effusions with associated bilateral dependent compressive atelectasis. (2) Pneumonia: Code(s): J18.9 - Pneumonia, unspecified organism Status: Acute Assessment and Plan: 06/02 Chest x-ray with acute worsening of bilateral infiltrates Given worsening pneumonia will escalate therapy. Patient has COPD and will given dual anti-pseudomonas coverage with Cefepime 2 grams IV Q8 hours and Levaquin 7 50 mg Q24 hours. check legionella, mycoplasma, pneumococcal antigens and sputum culture Check MRSA nasal swab. No MRSA risk factors apparent. lactic acid 1.1 on admission, WBC 8 to 11, Blood cultures pending. (3) COPD (chronic obstructive pulmonary disease): Code(s): J44.9 - Chronic obstructive pulmonary disease, unspecified Status: Acute Assessment and Plan: FEV1:FVC 63% with borderline airflow obstruction FEV1 on 05/14/22 PFTs. No wheezing on exam. Given solumedrol 125 mg IV x1. Will hold off on steroids at this time given worsening pneumonia. Duonebs Q4 hours. Pulmonology consulted. 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 (4) PAF (paroxysmal atrial fibrillation): Code(s): I48.0 - Paroxysmal atrial fibrillation Status: Acute Assessment and Plan: Patient with afib RVR 120s, likely worsened since patient reportedly did not take medications prior to admission and with worsening pneumonia. Check TSH. Continue management of pneumonia. Monitor telemetry. Increase metoprolol 50 mg q.8 hours and continue Eliquis. Consult Cardiology if persists or worsens. Check Echocardiogram (5) Tobacco abuse: Code(s): Z72.0 - Tobacco use Status: Chronic Assessment and Plan: Nicotine patch as needed (6) CASI on CPAP: Code(s): G47.33 - Obstructive sleep apnea (adult) (pediatric); Z99.89 - Dependence on other enabling machines and devices Status: Chronic Assessment and Plan: Currently on bipap (7) Morbid obesity with BMI of 40.0-44.9, adult: Code(s): E66.01 - Morbid (severe) obesity due to excess calories; Z68.41 - Body mass index [BMI] 40.0-44.9, adult Status: Acute Assessment and Plan: Lifestyle and diet modifications (8) Type 2 DM with CKD stage 3 and hypertension: Code(s): E11.22 - Type 2 diabetes mellitus with diabetic chronic kidney disease; I12.9 - Hypertensive chronic kidney disease with stage 1 through stage 4 chronic kidney disease, or unspecified chronic kidney disease; N18.30 - Chronic kidney disease, stage 3 unspecified Status: Chronic Assessment and Plan: Carb consistent 1800 calorie diet. Accu-checks AC/HS with moderate aspart sliding scale. Continue SGLT-2 and DPP-4. Goal 140-180 (9) Major depressive disorder in partial remission: Qualifiers: Major depression recurrence: recurrent Qualified Code(s): F33.41 - Major depressive disorder, recurrent, in partial remission Code(s): F32.4 - Major depressive d
[2022-06-03 16:22] LABS: Glucose Point of Care 129 mg/dl (65-105)
[2022-06-03] MEDS: LORazepam INJ (*CRX) 2 MG/ML VIAL 0.5 MG IV PUSH (17:50)
--- NOTE | 2022-06-03 18:33 | PM.PNPUL ---
Progress Note: A&P Assessment and Plan (1) Acute respiratory failure with hypoxia: Code(s): J96.01 - Acute respiratory failure with hypoxia Status: Acute Assessment and Plan: This 67-year-old man is admitted with suspected pneumonia, had rapid atrial fibrillation due to respiratory distress, mild hypercapnia, resolved. He is now on lower O2 ast 4 L/min, on broad coverage for possible pneumonia. His urine antigens are pending. He will need a Home O2 evaluation prior to discharge. I believe that most of his presentation is due to new systolic dysfunction, triggered by poor control of diabetes, hypertension - his BP was high, 170/100; bp is much lower. His atrial fib is not new but it was out of control, had rapid atrial fib and a Rapid Response called 06/02. He has been noncomplaint with meds at home. (2) Pneumonia: Code(s): J18.9 - Pneumonia, unspecified organism Status: Acute Assessment and Plan: Possible pneumonia; Initial WBC 11 K, CRP 3.3, and WBC increased to 15 K on Jun 03. He is on Cefepime and Levaquin. Urine antigens are pending. He does not have sputum for analysis. (3) COPD (chronic obstructive pulmonary disease): Code(s): J44.9 - Chronic obstructive pulmonary disease, unspecified Status: Acute Assessment and Plan: Had PFTs 05/14/2022, mild /borderline obstructive airways disease, FEV1/FVC 64% predicted, low end of normal. He was on no COPD medications at home. He is on Trelegy now. (4) Tobacco abuse: Code(s): Z72.0 - Tobacco use Status: Chronic Assessment and Plan: Smoking about 2 ppd, at times, more. He is in the hospital, and this is always a good opportunity to implement tobacco cessation with hopes to continue efforts after discharge. I talked with him about nicotine replacement therapy. He said that he has used this in the past, and it helped. (5) CASI on CPAP: Code(s): G47.33 - Obstructive sleep apnea (adult) (pediatric); Z99.89 - Dependence on other enabling machines and devices Status: Chronic Assessment and Plan: Sleep Study (CPAP titration study completed.) - 05/04/2018, optimal pressure was 10 cm, and he may be on that now. Sleep Study (Moderate CASI.) - 03/05/2008 He is using BiPAP in the hospital now, and an ApneaLink is not going to add anything of value while he is in the hospital except to determine if he may need O2 at night with PAP. Plan Continue Trelegy 100, one puff a day. He is on Entresto; Dr Juarez's consult noted. Blood pressure is better controlled. Home O2 study before discharge. Will need follow up for sleep issues after discharge. His most recent study was 05/04/2018 10 cm CPAP. He says he is compliant. There is no compliance information in the system. I offered to see him in follow up for COPD and sleep issues. Dr Bradshaw is his primary care doctor. Add nicotine patch. he has used before and says it really helped. Subjective Date/time seen: 06/03/22 18:33 Interval history: Hospital follow up: Cas Ruiz is a 67-year-old man admitted with increased shortness of breath and swelling which started gradually 6 months ago. He says that his legs have been swelling, he noticed increased weight without increased appetite, increased sleepiness, fatigue, and decreased exercise tolerance. About 3 months ago, he noticed occasional chest pains, sometimes with exertion.? He called 911 because he could only walk 10 feet before stopping to rest. In the ER, he
[2022-06-03] MEDS: NICOTINE (*PBKC) 21 MG PATCH 1 PATCH TRANSDERM (18:39)
[2022-06-03 20:11] LABS: Glucose Point of Care 169 mg/dl (65-105)
[2022-06-03] MEDS: ACETAMINOPHEN 325 MG TABLET 650 MG PO (20:16)
[2022-06-03] MEDS: traZODone HCL 50 MG TABLET 100 MG PO (20:17)
[2022-06-03] MEDS: SACUBITRIL/VALSARTAN 24-26 MG TABLET 1 TAB PO (20:18)
[2022-06-03] MEDS: MELATONIN 5 MG TABLET PO (20:18)
[2022-06-04] VITALS (39 sets, daily range): BP systolic 120–139; BP diastolic 65–97; PULSE 56–133; RESP 16–189; TEMP 36–36.6; O2SAT 87–96
[2022-06-04] MEDS: IPRATROPIUM BR 0.02% INH SOLN 0.5 MG/2.5 ML VIAL INHALATION ×6 (00:05→20:02)
[2022-06-04] MEDS: CEFEPIME 2 GM/NS 50 ML 2 GM/50 ML BAG IVPB ×3 (00:37→16:43)
[2022-06-04 04:59] LABS: Basophils Absolute Auto 0.1 K/mm3 (0.0-0.1); Basophils Percent Auto 0.5 % (0.2-1.2); Eosinophils Absolute Auto 0.1 K/mm3 (0-0.3); Eosinophils Percent Auto 0.6 % (0-4.4); Hematocrit 40.8 % (42.0-52.0); Hemoglobin 13.5 g/dL (14.0-18.0); Immature Granulocyte Absolute 0.04 K/mm3 (0.00-0.031); Immature Granulocyte Percent A 0.4 % (0-0.5); Lymphocytes Absolute Auto 2.55 K/mm3 (0.9-3.2); Lymphocytes Percent Auto 23.9 % (18.3-44.2); Mean Corpuscular HGB Conc 33.1 g/dl (32-36); Mean Corpuscular Hemoglobin 30.1 pg (26-34); Mean Corpuscular Volume 91.1 fl (80-100); Mean Platelet Volume 9.3 fl (7.4-10.4); Monocytes Absolute Auto 0.8 K/mm3 (0.1-0.6); Monocytes Percent Auto 7.9 % (2.6-8.5); Neutrophils Absolute Auto 7.1 K/mm3 (1.3-6.7); Neutrophils Percent Auto 66.7 % (45.5-73.1); Platelet Count Result 293 k/mm3 (150-375); Red Blood Count 4.48 M/mm3 (4.6-6.20); Red Cell Distribution Width 14.5 % (11.5-14.5); White Blood Count 10.7 K/mm3 (4.5-10.0)
[2022-06-04 05:17] LABS: Alanine Aminotransferase 34 U/L (6-50); Albumin Level 3.6 g/dL (3.5-5.1); Alkaline Phosphatase 73 U/L (38-126); Anion Gap 7 mmol/L (8-16); Aspartate Amino Transferase 43 U/L (17-59); Bilirubin,Total 0.8 mg/dL (0.2-1.3); Blood Urea Nitrogen 25 mg/dL (9-20); Calcium 8.4 mg/dL (8.4-10.2); Carbon Dioxide 31 mmol/L (22-30); Chloride 100 mmol/L (98-107); Estimated CRCL calculation 76 ml/min; Estimated Glomerular Filt Rate > 60; Glucose 128 mg/dL (65-110); Potassium 3.1 mmol/L (3.4-5.0); Sodium 138 mmol/L (137-145)
[2022-06-04] MEDS: FLUTICASONE/UMECLIDIN/VILANTER 100-62.5-25 MCG ELLIPTA 1 PUFF INHALATION (07:05)
--- NOTE | 2022-06-04 07:59 | PM.PNCARD ---
Progress Note: A&P Assessment and Plan (1) Systolic dysfunction: Code(s): I51.9 - Heart disease, unspecified Status: Acute Assessment and Plan: New onset. Acute systolic heart failure. Probably non-ischemic with negative troponin due to CASI, chronic rapid atrial fib. Dilated cardiomyopathy. Started Entresto 24-26 mg BID. On Metoprolol, Jardiance. On Lasix 40 mg IV BID. Discuss Life vest and he is interested to prevent sudden cardiac arrest, and this was ordered. (2) COPD (chronic obstructive pulmonary disease): Code(s): J44.9 - Chronic obstructive pulmonary disease, unspecified Status: Acute (3) Pneumonia: Code(s): J18.9 - Pneumonia, unspecified organism Status: Acute Assessment and Plan: On antibiotics. (4) Tobacco abuse: Code(s): Z72.0 - Tobacco use Status: Chronic Assessment and Plan: Counseled regarding smoking cessation. (5) Hypertension: Code(s): I10 - Essential (primary) hypertension Status: Acute Assessment and Plan: Stable. (6) Dyslipidemia: Code(s): E78.5 - Hyperlipidemia, unspecified Status: Acute Assessment and Plan: On Pravastatin. (7) Atrial fibrillation: Qualifiers: Atrial fibrillation type: unspecified chronic Qualified Code(s): I48.20 - Chronic atrial fibrillation, unspecified Code(s): I48.91 - Unspecified atrial fibrillation Status: Acute Assessment and Plan: [id number] 3. On Eliquis and Metoprolol. Rate control with Metoprolol. Added Digoxin 125 mcg daily. (8) Coronary artery disease: Qualifiers: Coronary Disease-Associated Artery/Lesion type: [place] artery [place] vs. transplanted heart: [place] heart Associated angina: without angina Qualified Code(s): I25.10 - Atherosclerotic heart disease of [place] coronary artery without angina pectoris Code(s): I25.10 - Atherosclerotic heart disease of [place] coronary artery without angina pectoris Status: Chronic Assessment and Plan: Stable. Subjective Date/time seen: 06/04/22 07:59 Interval history: Reports breathing is improving. No chest pains. Exam Const: General: cooperative, healthy appearing and comfortable Orientation/consciousness: oriented to person, oriented to place and oriented to time Resp: Auscultation: no crackles, no rales, rhonchi, wheezes and diminished lung sounds Cardio: Rate: tachycardic Rhythm: abnormal rhythm Heart sounds: no murmurs Peripheral pulses: dorsalis pedis present Neuro: General: oriented to person, oriented to place and oriented to time Extrem: Right lower extremity: no edema Left lower extremity: no edema Objective Data Vital Signs Vital Signs: Vital Signs - 24 hr 06/03/22 08:38 06/03/22 08:42 06/03/22 08:49 Temperature Pulse Rate 90 87 95 Respiratory Rate 20 20 20 Blood Pressure Pulse Oximetry 97 Oxygen Delivery High Flow Nasal Cannula Oxygen Flow Rate 8 06/03/22 08:00 06/03/22 10:40 06/03/22 08:00 Temperature Pulse Rate 101 H Respiratory Rate Blood Pressure Pulse Oximetry 96 96 Oxygen Delivery High Flow Nasal Cannula High Flow Nasal Cannula Oxygen Flow Rate 8 4 06/03/22 10:00 06/03/22 09:10 06/03/22 11:38 Temperature Pulse Rate 92 97 Respiratory Rate 20 Blood Pressure Pulse Oximetry 96 Oxygen Delivery High Flow Nasal Cannula Oxygen Flow Rate 6 06/03/22 11:41 06/03/22 11:46 06/03/22 11:52 Temperature 97.0 F L Pulse Rate 97 98 104 H Respiratory Rate 20 20 22 H Blood Pressure 140/64 Pulse Oximetry 95 94 Oxygen Delivery Nasal Cannula Oxygen Flow Rate 4 06/03/22 12:00 06/03/22 12:00 06/03/22 13:57 Temperature Pulse Rate 114 H 102 H Respiratory Rate Blood Pressure Pulse Oximetry 96 Oxygen Delivery High Flow Nasal Cannula Oxygen Flow Rate 2 06/03/22 14:53 06/03/22 14:00 06/03/22 16:26 Temperature 96.9 F L Puls
[2022-06-04 08:25] LABS: Glucose Point of Care 139 mg/dl (65-105)
[2022-06-04] MEDS: CHOLECALCIFEROL 1,000 UNITS TABLET 2000 UNITS PO (08:33)
[2022-06-04] MEDS: PANTOPRAZOLE 40 MG TABLET BY MOUTH (08:33)
[2022-06-04] MEDS: hydrOXYzine HCL 25 MG TABLET PO ×3 (08:34→21:53)
[2022-06-04] MEDS: buPROPion HCL SR (12 HR) 150 MG TAB PO (08:34)
[2022-06-04] MEDS: METOPROLOL TARTRATE 50 MG TAB PO (08:34)
[2022-06-04] MEDS: SACUBITRIL/VALSARTAN 24-26 MG TABLET 1 TAB PO ×2 (08:35→20:16)
[2022-06-04] MEDS: PARoxetine 20 MG TABLET 40 MG PO (08:35)
[2022-06-04] MEDS: SPIRONOLACTONE 12.5 MG TABLET PO ×2 (08:35→16:51)
[2022-06-04] MEDS: LORATADINE 10 MG TABLET PO (08:35)
[2022-06-04] MEDS: PRAVASTATIN SODIUM 20 MG TABLET PO (08:36)
[2022-06-04] MEDS: DIGOXIN TAB 125 MCG TABLET PO ×2 (08:36→16:43)
[2022-06-04] MEDS: POTASSIUM CHLORIDE 20 MEQ TABLET.ER 40 MEQ PO (08:36)
[2022-06-04] MEDS: APIXABAN 5 MG TABLET BY MOUTH ×2 (08:36→16:41)
[2022-06-04] MEDS: NICOTINE (*PBKC) 21 MG PATCH 1 PATCH TRANSDERM (08:36)
[2022-06-04] MEDS: MAGNESIUM OXIDE 400 MG TABLET PO ×2 (08:36→16:41)
[2022-06-04] MEDS: ASPIRIN 81 MG ENTERIC TABLET PO (08:37)
[2022-06-04] MEDS: CYANOCOBALAMIN 500 MCG TABLET PO (08:45)
[2022-06-04] MEDS: FUROSEMIDE INJ 40 MG/4 ML VIAL IV PUSH ×2 (08:45→16:43)
[2022-06-04] MEDS: EMPAGLIFLOZIN 10 MG TABLET BY MOUTH (08:46)
[2022-06-04 09:38] LABS: Alveolar/Arterial O2 Gradient 47.8 mmHg; Base Excess ABG 3.1 mEq/l (+/-2.0); Fractional Inspired Oxygen 21 %; HCO3 ABG 26.6 mEq/l (22.0-26.0); Oxygen Content ABG 18.3 %vol (16.0-22.0); Oxygen Saturation ABG 91.7 % (95.0-100.0); Oxyhemoglobin 89.7 % THb (90.0-100.0); PCO2 ABG 37.2 mmHg (35.0-45.0); PO2 ABG 57.4 mmHg (80.0-100.0); PO2 FiO2 Ratio Arterial Blood 2.73 %; Site Drawn RIGHT RADIAL; Total Hemoglobin 14.5 g/dL (12.0-18.0); pH ABG 7.472 (7.350-7.450)
[2022-06-04 09:39] LABS: Modified Allen's Test Pass
--- NOTE | 2022-06-04 10:52 | HOMEO2EVAL ---
Evaluation was performed at [facility] Home Oxygen Evaluation RC: Home Oxygen (O2) Evaluation Start: 06/04/22 09:20 Freq: ONCE Status: Active Protocol: RPE Activity Type Activity Date Activity User E-sign Co-sign Detail Recorded Client Recorded Date Recorded By Document 06/04/22 10:20 [email or web address] [email or web address] 06/04/22 10:51 DJO Document 06/04/22 10:25 [email or web address] [email or web address] 06/04/22 10:51 DJO Document 06/04/22 10:30 [email or web address] [email or web address] 06/04/22 10:51 DJO Document 06/04/22 10:35 [email or web address] [email or web address] 06/04/22 10:51 DJO Document 06/04/22 10:45 [email or web address] [email or web address] 06/04/22 10:51 DJO 06/04/22 06/04/22 06/04/22 10:20 10:25 10:30 Home O2 Evaluation [Oxygen] -Test Phase Resting Resting Resting -Oxygen Delivery Room Air Nasal Cannula Nasal Cannula -Oxygen Flow Rate (L/min) 1 2 [Pulse Oximetry] -Pulse Oximetry (90-100 %) 87 L 88 L 91 [Pulse Rate] -Pulse Rate (60-100 beats/min) 98 96 99 [Evaluation] -Activity Tolerance [Charges] -Treatment Charges O2 Evaluation - Inpatient 06/04/22 06/04/22 10:35 10:45 Home O2 Evaluation [Oxygen] -Test Phase Exercise Resting -Oxygen Delivery Nasal Cannula Nasal Cannula -Oxygen Flow Rate (L/min) 2 2 [Pulse Oximetry] -Pulse Oximetry (90-100 %) 91 91 [Pulse Rate] -Pulse Rate (60-100 beats/min) 119 H 102 H [Evaluation] -Activity Tolerance Poor [Charges] -Treatment Charges
--- NOTE | 2022-06-04 11:17 | PCRCNOTE ---
HOME O2 EVAL DONE, PT REQUIRES 2 REST AND ACTIVITY/EXERTION. [facility] - SETUP WITH [facility], CONTACT SANJAY [phone]. TRANSPORT TANK FROM [facility] IS IN ROOM AND READY FOR D/C
[2022-06-04] MEDS: LORazepam INJ (*CRX) 2 MG/ML VIAL 0.5 MG IV PUSH (12:22)
[2022-06-04 12:46] LABS: Glucose Point of Care 198 mg/dl (65-105)
--- NOTE | 2022-06-04 14:56 | PM.IMPN ---
Progress Note: A&P Assessment and Plan (1) Acute respiratory failure with hypoxia: Code(s): J96.01 - Acute respiratory failure with hypoxia Status: Acute Assessment and Plan: Patient requiring supplemental oxygen by nasal cannula upon arrival to ED. No home O2 use. 06/02 worsening respiratory status and placed on bipap. pH 7.38, pCO2 mildly elevated 46, pO2 137 on 15L NRB, bicab not elevated suggesting acute process. Continue bipap 15/8/20/100% and titrate FiO2 to landy >90%. Consult pulmonology. Continue management for COPD and pneumonia. D-dimer elevated 1.74. CTA chest shows no PE, mild pulmonary edema and small but lateral posterior layering pleural effusions with associated bilateral dependent compressive atelectasis. (2) Pneumonia: Code(s): J18.9 - Pneumonia, unspecified organism Status: Acute Assessment and Plan: 06/02 Chest x-ray with acute worsening of bilateral infiltrates Given worsening pneumonia will escalate therapy. Patient has COPD and will given dual anti-pseudomonas coverage with Cefepime 2 grams IV Q8 hours and Levaquin 750 mg Q24 hours. check legionella, mycoplasma, pneumococcal antigens and sputum culture Check MRSA nasal swab. No MRSA risk factors apparent. lactic acid 1.1 on admission, WBC 8 to 11, Blood cultures pending. (3) COPD (chronic obstructive pulmonary disease): Code(s): J44.9 - Chronic obstructive pulmonary disease, unspecified Status: Acute Assessment and Plan: FEV1:FVC 63% with borderline airflow obstruction FEV1 on 05/14/22 PFTs. No wheezing on exam. Given solumedrol 125 mg IV x1. Will hold off on steroids at this time given worsening pneumonia. Duonebs Q4 hours. Pulmonology consulted. [employer] to quit smoking. (4) PAF (paroxysmal atrial fibrillation): Code(s): I48.0 - Paroxysmal atrial fibrillation Status: Acute Assessment and Plan: Patient with afib RVR 120s, likely worsened since patient reportedly did not take medications prior to admission and with worsening pneumonia. Check TSH. Continue management of pneumonia. Monitor telemetry. Increase metoprolol 50 mg q.8 hours and continue Eliquis. Consult Cardiology if persists or worsens. Check Echocardiogram (5) Tobacco abuse: Code(s): Z72.0 - Tobacco use Status: Chronic Assessment and Plan: Nicotine patch as needed (6) CASI on CPAP: Code(s): G47.33 - Obstructive sleep apnea (adult) (pediatric); Z99.89 - Dependence on other enabling machines and devices Status: Chronic Assessment and Plan: Currently on bipap (7) Morbid obesity with BMI of 40.0-44.9, adult: Code(s): E66.01 - Morbid (severe) obesity due to excess calories; Z68.41 - Body mass index [BMI] 40.0-44.9, adult Status: Acute Assessment and Plan: Lifestyle and diet modifications (8) Type 2 DM with CKD stage 3 and hypertension: Code(s): E11.22 - Type 2 diabetes mellitus with diabetic chronic kidney disease; I12.9 - Hypertensive chronic kidney disease with stage 1 through stage 4 chronic kidney disease, or unspecified chronic kidney disease; N18.30 - Chronic kidney disease, stage 3 unspecified Status: Chronic Assessment and Plan: Carb consistent 1800 calorie diet. Accu-checks AC/HS with moderate aspart sliding scale. Continue SGLT-2 and DPP-4. Goal 140-180 (9) Major depressive disorder in partial remission: Qualifiers: Major depression recurrence: recurrent Qualified Code(s): F33.41 - Major depressive disorder, recurrent, in partial remission Code(s): F32.4 - Major depressive disorder, single episode, in partial remission Status: Chronic Assessment and Plan: With anxiety, Continue home meds (10) Coronary artery disease: Qualifiers: Coronary Disease-Associated Artery/Lesion type: [place] artery [place] vs. transplanted heart: [place] heart Associated angina: without angina Qualified Code(s):
--- NOTE | 2022-06-04 16:26 | P.PNPL_ITS ---
Progress Note: A&P Assessment and Plan (1) Acute respiratory failure with hypoxia: Code(s): J96.01 - Acute respiratory failure with hypoxia Status: Acute Assessment and Plan: This 67-year-old man is admitted with suspected pneumonia, had rapid atrial fibrillation due to respiratory distress, mild hypercapnia, resolved. He is now on lower O2 ast 4 L/min, on broad coverage for possible pneumonia. His urine an tigens are pending. He will need a Home O2 evaluation prior to discharge. I believe that most of his presentation is due to new systolic dysfunction, triggered by poor control of diabetes, hypertension - his BP was high, 170/100; bp is much lower. His atrial fib is not new but it was out of control, had rapid atrial fib and a Rapid Response called 06/02. He has been noncomplaint with meds at home. (2) Pneumonia: Code(s): J18.9 - Pneumonia, unspecified organism Status: Acute Assessment and Plan: Possible pneumonia; Initial WBC 11 K, CRP 3.3, and WBC increased to 15 K on Jun 03. He is on Cefepime and Levaquin. Urine antigens are pending. He does not have sputum for analysis. (3) COPD (chronic obstructive pulmonary disease): Code(s): J44.9 - Chronic obstructive pulmonary disease, unspecified Status: Acute Assessment and Plan: Had PFTs 05/14/2022, mild /borderline obstructive airways disease, FEV1/FVC 64% predicted, low end of normal. He was on no COPD medications at home. He is on Trelegy now. (4) Tobacco abuse: Code(s): Z72.0 - Tobacco use Status: Chronic Assessment and Plan: Smoking about 2 ppd, at times, more. He is in the hospital, and this is always a good opportunity to implement tobacco cessation with hopes to continue efforts after discharge. I talked with him about nicotine replacement therapy. He said that he has used this in the past, and it helped. (5) CASI on CPAP: Code(s): G47.33 - Obstructive sleep apnea (adult) (pediatric); Z99.89 - Dependence on other enabling machines and devices Status: Chronic Assessment and Plan: Sleep Study (CPAP titration study completed.) - 05/04/2018, optimal pressure was 10 cm, and he may be on that now. Sleep Study (Moderate CASI.) - 03/05/2008 He is using BiPAP in the hospital now, and an [facility] is not going to add anything of value while he is in the hospital except to determine if he may need O2 at night with PAP. Plan Continue Trelegy 100, one puff a day. He is on Entresto; Dr Juarez's consult noted. Blood pressure is better controlled. Home O2 study before discharge. Will need follow up for sleep issues after discharge. His most recent study was 05/04/2018 10 cm CPAP. He says he is compliant. There is no compliance information in the system. I offered to see him in follow up for COPD and sleep issues. Dr Bradshaw is his primary care doctor. Add nicotine patch. he has used before and says it really helped. Subjective Date/time seen: 06/04/22 16:26 Interval history: Hospital follow up: Cas Ruiz is a 67-year-old man admitted with increased shortness of breath and swelling which started gradually 6 months ago. He says that his legs
[2022-06-04 17:04] LABS: Glucose Point of Care 197 mg/dl (65-105)
[2022-06-04] MEDS: METOPROLOL TARTRATE 50 MG TAB 100 MG PO (20:16)
[2022-06-04] MEDS: traZODone HCL 50 MG TABLET 100 MG PO (20:16)
[2022-06-04] MEDS: MELATONIN 5 MG TABLET PO (20:17)
[2022-06-04 21:08] LABS: Glucose Point of Care 181 mg/dl (65-105)
[2022-06-05] VITALS (29 sets, daily range): BP systolic 105–159; BP diastolic 52–95; PULSE 66–125; RESP 18–22; TEMP 36–36.5; O2SAT 91–96
[2022-06-05] MEDS: IPRATROPIUM BR 0.02% INH SOLN 0.5 MG/2.5 ML VIAL INHALATION ×6 (00:38→20:26)
[2022-06-05] MEDS: CEFEPIME 2 GM/NS 50 ML 2 GM/50 ML BAG IVPB (00:58)
[2022-06-05] MEDS: LORazepam INJ (*CRX) 2 MG/ML VIAL 0.5 MG IV PUSH (01:07)
[2022-06-05 04:02] LABS: Legionella pneumophila Ag Ur Not Detected (Not Detected)
[2022-06-05 05:13] LABS: Basophils Absolute Auto 0.1 K/mm3 (0.0-0.1); Basophils Percent Auto 0.5 % (0.2-1.2); Eosinophils Absolute Auto 0.1 K/mm3 (0-0.3); Eosinophils Percent Auto 1.1 % (0-4.4); Hemoglobin 13.7 g/dL (14.0-18.0); Immature Granulocyte Absolute 0.05 K/mm3 (0.00-0.031); Immature Granulocyte Percent A 0.4 % (0-0.5); Lymphocytes Absolute Auto 1.57 K/mm3 (0.9-3.2); Lymphocytes Percent Auto 13.6 % (18.3-44.2); Mean Corpuscular HGB Conc 34.3 g/dl (32-36); Mean Corpuscular Hemoglobin 29.7 pg (26-34); Mean Corpuscular Volume 86.8 fl (80-100); Mean Platelet Volume 9.4 fl (7.4-10.4); Monocytes Absolute Auto 0.8 K/mm3 (0.1-0.6); Monocytes Percent Auto 7.3 % (2.6-8.5); Neutrophils Absolute Auto 8.9 K/mm3 (1.3-6.7); Neutrophils Percent Auto 77.1 % (45.5-73.1); Platelet Count Result 296 k/mm3 (150-375); Red Blood Count 4.61 M/mm3 (4.6-6.20); Red Cell Distribution Width 13.8 % (11.5-14.5); White Blood Count 11.5 K/mm3 (4.5-10.0)
[2022-06-05 05:31] LABS: Alanine Aminotransferase 32 U/L (6-50); Albumin Level 3.6 g/dL (3.5-5.1); Alkaline Phosphatase 73 U/L (38-126); Anion Gap 6 mmol/L (8-16); Aspartate Amino Transferase 39 U/L (17-59); Bilirubin,Total 1.1 mg/dL (0.2-1.3); Blood Urea Nitrogen 20 mg/dL (9-20); Calcium 8.5 mg/dL (8.4-10.2); Carbon Dioxide 30 mmol/L (22-30); Chloride 101 mmol/L (98-107); Estimated CRCL calculation 90 ml/min; Estimated Glomerular Filt Rate > 60; Glucose 163 mg/dL (65-110); Potassium 3.2 mmol/L (3.4-5.0); Sodium 137 mmol/L (137-145)
[2022-06-05] MEDS: hydrOXYzine HCL 25 MG TABLET PO ×3 (05:46→21:17)
--- NOTE | 2022-06-05 07:59 | PM.PNCARD ---
Progress Note: A&P Assessment and Plan (1) Systolic dysfunction: Code(s): I51.9 - Heart disease, unspecified Status: Acute Assessment and Plan: New onset. Acute systolic heart failure. Probably non-ischemic with negative troponin due to CASI, chronic rapid atrial fib. Dilated cardiomyopathy. 06/02/22 Echo: EF 30-35%, mod LVE, mild LVH, mild RV dysfunction with TAPSE 1.6 cm, mild LAE, mild MR/TR, trivial perciardial effusion. Started Entresto 24-26 mg BID. On Metoprolol, Jardiance. On Lasix 40 mg IV BID. Discuss Life vest and he is interested to prevent sudden cardiac arrest, and he currently has it on. (2) COPD (chronic obstructive pulmonary disease): Code(s): J44.9 - Chronic obstructive pulmonary disease, unspecified Status: Acute (3) Pneumonia: Code(s): J18.9 - Pneumonia, unspecified organism Status: Acute Assessment and Plan: On antibiotics. (4) Tobacco abuse: Code(s): Z72.0 - Tobacco use Status: Chronic Assessment and Plan: Counseled regarding smoking cessation. (5) Hypertension: Code(s): I10 - Essential (primary) hypertension Status: Acute Assessment and Plan: Stable. (6) Dyslipidemia: Code(s): E78.5 - Hyperlipidemia, unspecified Status: Acute Assessment and Plan: On Pravastatin. (7) Atrial fibrillation: Qualifiers: Atrial fibrillation type: unspecified chronic Qualified Code(s): I48.20 - Chronic atrial fibrillation, unspecified Code(s): I48.91 - Unspecified atrial fibrillation Status: Acute Assessment and Plan: [id number] 3. On Eliquis and Metoprolol. Rate control with Metoprolol Tartate 100 mg BID. Added Digoxin 125 mcg daily. Start Diltiazem 30 mg every 12 HR to improve HR control. (8) Coronary artery disease: Qualifiers: Coronary Disease-Associated Artery/Lesion type: [place] artery [place] vs. transplanted heart: [place] heart Associated angina: without angina Qualified Code(s): I25.10 - Atherosclerotic heart disease of [place] coronary artery without angina pectoris Code(s): I25.10 - Atherosclerotic heart disease of [place] coronary artery without angina pectoris Status: Chronic Assessment and Plan: Stable. Subjective Date/time seen: 06/05/22 07:59 Interval history: Reports breathing is improving. No chest pains. Exam Const: General: cooperative, healthy appearing and comfortable Orientation/consciousness: oriented to person, oriented to place and oriented to time Resp: Auscultation: no crackles, no rales, rhonchi, wheezes and diminished lung sounds Cardio: Rate: tachycardic Rhythm: abnormal rhythm Heart sounds: no murmurs Peripheral pulses: dorsalis pedis present Neuro: General: oriented to person, oriented to place and oriented to time Extrem: Right lower extremity: no edema Left lower extremity: no edema Objective Data Vital Signs Vital Signs: Vital Signs - 24 hr 06/04/22 08:34 06/04/22 08:36 06/04/22 08:00 Temperature Pulse Rate 120 H 120 H 133 H Respiratory Rate Blood Pressure Pulse Oximetry Oxygen Delivery Oxygen Flow Rate 06/04/22 10:00 06/04/22 10:20 06/04/22 10:25 Temperature Pulse Rate 120 H 98 96 Respiratory Rate Blood Pressure Pulse Oximetry 87 L 88 L Oxygen Delivery Room Air Nasal Cannula Oxygen Flow Rate 1 06/04/22 10:30 06/04/22 10:35 06/04/22 10:45 Temperature Pulse Rate 99 119 H 102 H Respiratory Rate Blood Pressure Pulse Oximetry 91 91 91 Oxygen Delivery Nasal Cannula Nasal Cannula Nasal Cannula Oxygen Flow Rate 2 2 2 06/04/22 11:00 06/04/22 11:10 06/04/22 12:00 Temperature Pulse Rate 104 H 102 H Respiratory Rate 20 20 Blood Pressure Pulse Oximetry 96 Oxygen Delivery Nasal Cannula Oxygen Flow Rate 2 06/04/22 12:00 06/04/22 12:35 06/04/22 14:32 Temperature 96.9 F L Pulse Rate 126 H 83 Respiratory Rate 2
[2022-06-05] MEDS: FLUTICASONE/UMECLIDIN/VILANTER 100-62.5-25 MCG ELLIPTA 1 PUFF INHALATION (08:05)
[2022-06-05] MEDS: dilTIAZem HCL 30 MG TABLET PO (09:44)
[2022-06-05] MEDS: FUROSEMIDE 40 MG TABLET PO ×2 (09:44→17:21)
[2022-06-05] MEDS: DIGOXIN TAB 125 MCG TABLET PO (09:44)
[2022-06-05] MEDS: buPROPion HCL SR (12 HR) 150 MG TAB PO (09:44)
[2022-06-05] MEDS: ASPIRIN 81 MG ENTERIC TABLET PO (09:45)
[2022-06-05] MEDS: SPIRONOLACTONE 12.5 MG TABLET PO ×2 (09:45→17:19)
[2022-06-05] MEDS: CHOLECALCIFEROL 1,000 UNITS TABLET 2000 UNITS PO (09:45)
[2022-06-05] MEDS: MAGNESIUM OXIDE 400 MG TABLET PO ×2 (09:45→17:19)
[2022-06-05] MEDS: LORATADINE 10 MG TABLET PO (09:45)
[2022-06-05] MEDS: METOPROLOL TARTRATE 50 MG TAB 100 MG PO ×2 (09:45→21:16)
[2022-06-05] MEDS: SACUBITRIL/VALSARTAN 24-26 MG TABLET 1 TAB PO ×2 (09:46→21:16)
[2022-06-05] MEDS: PARoxetine 20 MG TABLET 40 MG PO (09:46)
[2022-06-05] MEDS: APIXABAN 5 MG TABLET BY MOUTH ×2 (09:47→17:21)
[2022-06-05] MEDS: EMPAGLIFLOZIN 10 MG TABLET BY MOUTH (09:47)
[2022-06-05] MEDS: PANTOPRAZOLE 40 MG TABLET BY MOUTH (09:47)
[2022-06-05] MEDS: POTASSIUM CHLORIDE 20 MEQ TABLET.ER 40 MEQ PO (09:47)
[2022-06-05] MEDS: PRAVASTATIN SODIUM 20 MG TABLET PO (09:47)
[2022-06-05] MEDS: CYANOCOBALAMIN 500 MCG TABLET PO (09:47)
[2022-06-05] MEDS: NICOTINE (*PBKC) 21 MG PATCH 1 PATCH TRANSDERM (09:52)
[2022-06-05] MEDS: POTASSIUM CHLORIDE INJ 40 MEQ in SODIUM CHLORIDE 0.9% IV 500 ML 130 MEQ IVPB (10:11)
[2022-06-05 13:29] LABS: Glucose Point of Care 253 mg/dl (65-105)
[2022-06-05 13:29] LABS: Glucose Point of Care 178 mg/dl (65-105)
[2022-06-05] MEDS: INSULIN ASPART (*BKC) 100 UNITS/ML SUB-Q ×2 (14:08→17:21)
[2022-06-05 17:08] LABS: Pneumococcal Antigen Urine Not Detected (Not Detected)
[2022-06-05 17:17] LABS: Glucose Point of Care 231 mg/dl (65-105)
[2022-06-05 19:54] LABS: Glucose Point of Care 163 mg/dl (65-105)
[2022-06-05 20:55] LABS: Mycoplasma IgM Antibody Titer 176 U/mL (<770)
[2022-06-05] MEDS: MELATONIN 5 MG TABLET PO (21:16)
[2022-06-05] MEDS: dilTIAZem HCL 60 MG TABLET PO (21:16)
[2022-06-05] MEDS: traZODone HCL 50 MG TABLET 100 MG PO (21:17)
[2022-06-06] VITALS (23 sets, daily range): BP systolic 95–131; BP diastolic 56–74; PULSE 71–107; RESP 16–22; TEMP 36.2–37.1; O2SAT 92–100
[2022-06-06] MEDS: IPRATROPIUM BR 0.02% INH SOLN 0.5 MG/2.5 ML VIAL INHALATION ×4 (00:13→20:16)
[2022-06-06 05:13] LABS: Basophils Absolute Auto 0.1 K/mm3 (0.0-0.1); Basophils Percent Auto 0.7 % (0.2-1.2); Eosinophils Absolute Auto 0.2 K/mm3 (0-0.3); Eosinophils Percent Auto 1.8 % (0-4.4); Hematocrit 42.1 % (42.0-52.0); Hemoglobin 13.9 g/dL (14.0-18.0); Immature Granulocyte Absolute 0.03 K/mm3 (0.00-0.031); Immature Granulocyte Percent A 0.3 % (0-0.5); Lymphocytes Absolute Auto 1.37 K/mm3 (0.9-3.2); Mean Corpuscular Volume 90.7 fl (80-100); Mean Platelet Volume 9.4 fl (7.4-10.4); Monocytes Absolute Auto 0.9 K/mm3 (0.1-0.6); Monocytes Percent Auto 8.5 % (2.6-8.5); Neutrophils Percent Auto 75.7 % (45.5-73.1); Platelet Count Result 278 k/mm3 (150-375); Red Blood Count 4.64 M/mm3 (4.6-6.20); Red Cell Distribution Width 14.2 % (11.5-14.5); White Blood Count 10.5 K/mm3 (4.5-10.0)
[2022-06-06 05:30] LABS: Alanine Aminotransferase 34 U/L (6-50); Albumin Level 3.8 g/dL (3.5-5.1); Alkaline Phosphatase 73 U/L (38-126); Anion Gap 7 mmol/L (8-16); Aspartate Amino Transferase 45 U/L (17-59); Bilirubin,Total 0.9 mg/dL (0.2-1.3); Blood Urea Nitrogen 20 mg/dL (9-20); Calcium 8.9 mg/dL (8.4-10.2); Carbon Dioxide 27 mmol/L (22-30); Chloride 103 mmol/L (98-107); Estimated CRCL calculation 83 ml/min; Estimated Glomerular Filt Rate > 60; Glucose 147 mg/dL (65-110); Magnesium 1.8 mg/dL (1.6-2.3); Potassium 3.4 mmol/L (3.4-5.0); Sodium 137 mmol/L (137-145)
[2022-06-06] MEDS: hydrOXYzine HCL 25 MG TABLET PO ×3 (05:49→21:05)
--- NOTE | 2022-06-06 07:56 | PM.PNCARD ---
Progress Note: A&P Assessment and Plan (1) Systolic dysfunction: Code(s): I51.9 - Heart disease, unspecified Status: Acute Assessment and Plan: New onset. Acute systolic heart failure. Probably non-ischemic with negative troponin due to CASI, chronic rapid atrial fib. Dilated cardiomyopathy. 06/02/22 Echo: EF 30-35%, mod LVE, mild LVH, mild RV dysfunction with TAPSE 1.6 cm, mild LAE, mild MR/TR, trivial perciardial effusion. Started Entresto 24-26 mg BID. On Metoprolol, Jardiance. On Lasix 40 mg PO BID. Discuss Life vest and he is interested to prevent sudden cardiac arrest, and he currently has it on. (2) COPD (chronic obstructive pulmonary disease): Code(s): J44.9 - Chronic obstructive pulmonary disease, unspecified Status: Acute (3) Pneumonia: Code(s): J18.9 - Pneumonia, unspecified organism Status: Acute Assessment and Plan: On antibiotics. (4) Tobacco abuse: Code(s): Z72.0 - Tobacco use Status: Chronic Assessment and Plan: Counseled regarding smoking cessation. (5) Hypertension: Code(s): I10 - Essential (primary) hypertension Status: Acute Assessment and Plan: Stable. (6) Dyslipidemia: Code(s): E78.5 - Hyperlipidemia, unspecified Status: Acute Assessment and Plan: On Pravastatin. (7) Atrial fibrillation: Qualifiers: Atrial fibrillation type: unspecified chronic Qualified Code(s): I48.20 - Chronic atrial fibrillation, unspecified Code(s): I48.91 - Unspecified atrial fibrillation Status: Acute Assessment and Plan: HR controlled. [id number] 3. On Eliquis and Metoprolol. Rate control with Metoprolol Tartate 100 mg BID. Added Digoxin 125 mcg daily. On Diltiazem 60 mg BID to improve HR control. May d/c home from cardiology standpoint and f/u with me in 1-2 weeks. (8) Coronary artery disease: Qualifiers: Coronary Disease-Associated Artery/Lesion type: [place] artery [place] vs. transplanted heart: [place] heart Associated angina: without angina Qualified Code(s): I25.10 - Atherosclerotic heart disease of [place] coronary artery without angina pectoris Code(s): I25.10 - Atherosclerotic heart disease of [place] coronary artery without angina pectoris Status: Chronic Assessment and Plan: Stable. Subjective Date/time seen: 06/06/22 07:56 Interval history: Reports breathing is improving. No chest pains. Exam Const: General: cooperative, healthy appearing and comfortable Orientation/consciousness: oriented to person, oriented to place and oriented to time Resp: Auscultation: no crackles, no rales, rhonchi, wheezes and diminished lung sounds Cardio: Rate: tachycardic Rhythm: abnormal rhythm Heart sounds: no murmurs Peripheral pulses: dorsalis pedis present Neuro: General: oriented to person, oriented to place and oriented to time Extrem: Right lower extremity: no edema Left lower extremity: no edema Objective Data Vital Signs Vital Signs: Vital Signs - 24 hr 06/05/22 08:06 06/05/22 08:06 06/05/22 08:18 Temperature Pulse Rate 102 H 107 H Respiratory Rate 18 20 Blood Pressure Pulse Oximetry 94 Oxygen Delivery Nasal Cannula Oxygen Flow Rate 2 Fraction of Inspired Oxygen 06/05/22 08:00 06/05/22 09:44 06/05/22 09:45 Temperature 97.7 F Pulse Rate 66 116 H 116 H Respiratory Rate 20 Blood Pressure 133/95 H Pulse Oximetry 96 Oxygen Delivery Oxygen Flow Rate Fraction of Inspired Oxygen 06/05/22 11:07 06/05/22 11:18 06/05/22 13:31 Temperature Pulse Rate 103 H 110 H Respiratory Rate 18 18 Blood Pressure Pulse Oximetry Oxygen Delivery Nasal Cannula Oxygen Flow Rate 2 Fraction of Inspired Oxygen 06/05/22 15:24 06/05/22 15:37 06/05/22 08:00 Temperature Pulse Rate 91 99 Respiratory Rate 18 18 Blood Pressure Pulse Oximetry 96 Oxygen Delivery Nasal Cannula
[2022-06-06 08:01] LABS: Glucose Point of Care 149 mg/dl (65-105)
[2022-06-06] MEDS: DIGOXIN TAB 125 MCG TABLET PO (08:49)
[2022-06-06] MEDS: APIXABAN 5 MG TABLET BY MOUTH ×2 (08:50→17:16)
[2022-06-06] MEDS: CHOLECALCIFEROL 1,000 UNITS TABLET 2000 UNITS PO (08:50)
[2022-06-06] MEDS: POTASSIUM CHLORIDE 20 MEQ TABLET.ER 40 MEQ PO (08:50)
[2022-06-06] MEDS: PRAVASTATIN SODIUM 20 MG TABLET PO (08:50)
[2022-06-06] MEDS: FUROSEMIDE 40 MG TABLET PO ×2 (08:50→17:17)
[2022-06-06] MEDS: CYANOCOBALAMIN 500 MCG TABLET PO (08:51)
[2022-06-06] MEDS: PARoxetine 20 MG TABLET 40 MG PO (08:51)
[2022-06-06] MEDS: ASPIRIN 81 MG ENTERIC TABLET PO (08:51)
[2022-06-06] MEDS: dilTIAZem HCL 60 MG TABLET PO ×2 (08:51→21:04)
[2022-06-06] MEDS: LORATADINE 10 MG TABLET PO (08:51)
[2022-06-06] MEDS: buPROPion HCL SR (12 HR) 150 MG TAB PO (08:51)
[2022-06-06] MEDS: MAGNESIUM OXIDE 400 MG TABLET PO ×2 (08:51→17:17)
[2022-06-06] MEDS: METOPROLOL TARTRATE 50 MG TAB 100 MG PO ×2 (08:51→21:05)
[2022-06-06] MEDS: PANTOPRAZOLE 40 MG TABLET BY MOUTH (08:51)
[2022-06-06] MEDS: EMPAGLIFLOZIN 10 MG TABLET BY MOUTH (08:52)
[2022-06-06] MEDS: SPIRONOLACTONE 12.5 MG TABLET PO ×2 (08:52→17:18)
[2022-06-06] MEDS: SACUBITRIL/VALSARTAN 24-26 MG TABLET 1 TAB PO ×2 (08:52→21:05)
[2022-06-06] MEDS: levoFLOXacin 750 MG TABLET PO (08:52)
[2022-06-06] MEDS: NICOTINE (*PBKC) 21 MG PATCH 1 PATCH TRANSDERM (08:53)
[2022-06-06] MEDS: FLUTICASONE/UMECLIDIN/VILANTER 100-62.5-25 MCG ELLIPTA 1 PUFF INHALATION (10:22)
--- NOTE | 2022-06-06 10:59 | PCRCNOTE ---
Window of time for administration has passed. See next scheduled administration.
--- NOTE | 2022-06-06 12:05 | PCPTNOTE ---
Attempted therapy session, Pt was eating lunch. Will attempt again.
[2022-06-06 12:46] LABS: Glucose Point of Care 188 mg/dl (65-105)
--- NOTE | 2022-06-06 14:47 | PM.IMPN ---
Progress Note: A&P Assessment and Plan (1) Acute respiratory failure with hypoxia: Code(s): J96.01 - Acute respiratory failure with hypoxia Status: Acute Assessment and Plan: Patient requiring supplemental oxygen by nasal cannula upon arrival to ED. No home O2 use. 06/02 worsening respiratory status and placed on bipap. pH 7.38, pCO2 mildly elevated 46, pO2 137 on 15L NRB, bicab not elevated suggesting acute process. Continue bipap 15/8/20/100% and titrate FiO2 to landy >90%. Consult pulmonology. Continue management for COPD and pneumonia. D-dimer elevated 1.74. CTA chest shows no PE, mild pulmonary edema and small but lateral posterior layering pleural effusions with associated bilateral dependent compressive atelectasis. (2) Pneumonia: Code(s): J18.9 - Pneumonia, unspecified organism Status: Acute Assessment and Plan: 06/02 Chest x-ray with acute worsening of bilateral infiltrates Given worsening pneumonia will escalate therapy. Patient has COPD and will given dual anti-pseudomonas coverage with Cefepime 2 grams IV Q8 hours and Levaquin 750 mg Q24 hours. check legionella, mycoplasma, pneumococcal antigens and sputum culture Check MRSA nasal swab. No MRSA risk factors apparent. lactic acid 1.1 on admission, WBC 8 to 11, Blood cultures pending. (3) COPD (chronic obstructive pulmonary disease): Code(s): J44.9 - Chronic obstructive pulmonary disease, unspecified Status: Acute Assessment and Plan: FEV1:FVC 63% with borderline airflow obstruction FEV1 on 05/14/22 PFTs. No wheezing on exam. Given solumedrol 125 mg IV x1. Will hold off on steroids at this time given worsening pneumonia. Duonebs Q4 hours. Pulmonology consulted. 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 (4) PAF (paroxysmal atrial fibrillation): Code(s): I48.0 - Paroxysmal atrial fibrillation Status: Acute Assessment and Plan: Patient with afib RVR 120s, likely worsened since patient reportedly did not take medications prior to admission and with worsening pneumonia. Check TSH. Continue management of pneumonia. Monitor telemetry. Increase metoprolol 50 mg q.8 hours and continue Eliquis. Consult Cardiology if persists or worsens. Check Echocardiogram (5) Tobacco abuse: Code(s): Z72.0 - Tobacco use Status: Chronic Assessment and Plan: Nicotine patch as needed (6) CASI on CPAP: Code(s): G47.33 - Obstructive sleep apnea (adult) (pediatric); Z99.89 - Dependence on other enabling machines and devices Status: Chronic Assessment and Plan: Currently on bipap (7) Morbid obesity with BMI of 40.0-44.9, adult: Code(s): E66.01 - Morbid (severe) obesity due to excess calories; Z68.41 - Body mass index [BMI] 40.0-44.9, adult Status: Acute Assessment and Plan: Lifestyle and diet modifications (8) Type 2 DM with CKD stage 3 and hypertension: Code(s): E11.22 - Type 2 diabetes mellitus with diabetic chronic kidney disease; I12.9 - Hypertensive chronic kidney disease with stage 1 through stage 4 chronic kidney disease, or unspecified chronic kidney disease; N18.30 - Chronic kidney disease, stage 3 unspecified Status: Chronic Assessment and Plan: Carb consistent 1800 calorie diet. Accu-checks AC/HS with moderate aspart sliding scale. Continue SGLT-2 and DPP-4. Goal 140-180 (9) Major depressive disorder in partial remission: Qualifiers: Major depression recurrence: recurrent Qualified Code(s): F33.41 - Major depressive disorder, recurrent, in partial remission Code(s): F32.4 - Major depressive disorder, single episode, in partial remission Status: Chronic Assessment and Plan: With anxiety, Continue home meds (10) Coronary artery disease: Qualifiers: Coronary Disease-Associated Artery/Lesion type: [place] artery [place] vs. transplanted heart: [place] heart Associated angina: without angina Qualified Code(s):
[2022-06-06 15:58] LABS: Glucose Point of Care 212 mg/dl (65-105)
[2022-06-06] MEDS: INSULIN ASPART (*BKC) 100 UNITS/ML SUB-Q (17:18)
[2022-06-06 20:31] LABS: Glucose Point of Care 187 mg/dl (65-105)
[2022-06-06] MEDS: traZODone HCL 50 MG TABLET 100 MG PO (21:04)
[2022-06-06] MEDS: MELATONIN 5 MG TABLET PO (21:05)
[2022-06-07] VITALS (27 sets, daily range): BP systolic 102–126; BP diastolic 62–99; PULSE 70–102; RESP 16–20; TEMP 36.2–36.6; O2SAT 95–100
[2022-06-07] MEDS: IPRATROPIUM BR 0.02% INH SOLN 0.5 MG/2.5 ML VIAL INHALATION ×7 (02:27→23:39)
[2022-06-07] MEDS: ACETAMINOPHEN 325 MG TABLET 650 MG PO ×3 (02:41→21:41)
[2022-06-07] MEDS: hydrOXYzine HCL 25 MG TABLET PO ×3 (06:32→21:34)
[2022-06-07 07:46] LABS: Glucose Point of Care 158 mg/dl (65-105)
[2022-06-07] MEDS: POTASSIUM CHLORIDE 20 MEQ TABLET.ER 40 MEQ PO (08:11)
[2022-06-07] MEDS: CHOLECALCIFEROL 1,000 UNITS TABLET 2000 UNITS PO (08:11)
[2022-06-07] MEDS: buPROPion HCL SR (12 HR) 150 MG TAB PO (08:11)
[2022-06-07] MEDS: SACUBITRIL/VALSARTAN 24-26 MG TABLET 1 TAB PO ×2 (08:11→21:34)
[2022-06-07] MEDS: dilTIAZem HCL 60 MG TABLET PO ×2 (08:12→21:34)
[2022-06-07] MEDS: NICOTINE (*PBKC) 21 MG PATCH 1 PATCH TRANSDERM (08:12)
[2022-06-07] MEDS: PARoxetine 20 MG TABLET 40 MG PO (08:12)
[2022-06-07] MEDS: LORATADINE 10 MG TABLET PO (08:12)
[2022-06-07] MEDS: METOPROLOL TARTRATE 50 MG TAB 100 MG PO ×2 (08:12→21:34)
[2022-06-07] MEDS: ASPIRIN 81 MG ENTERIC TABLET PO (08:13)
[2022-06-07] MEDS: SPIRONOLACTONE 12.5 MG TABLET PO ×2 (08:13→17:19)
[2022-06-07] MEDS: FUROSEMIDE 40 MG TABLET PO ×2 (08:13→17:17)
[2022-06-07] MEDS: MAGNESIUM OXIDE 400 MG TABLET PO ×2 (08:13→17:18)
[2022-06-07] MEDS: PANTOPRAZOLE 40 MG TABLET BY MOUTH (08:13)
[2022-06-07] MEDS: DIGOXIN TAB 125 MCG TABLET PO (08:13)
[2022-06-07] MEDS: EMPAGLIFLOZIN 10 MG TABLET BY MOUTH (08:14)
[2022-06-07] MEDS: levoFLOXacin 750 MG TABLET PO (08:14)
[2022-06-07] MEDS: PRAVASTATIN SODIUM 20 MG TABLET PO (08:14)
[2022-06-07] MEDS: APIXABAN 5 MG TABLET BY MOUTH ×2 (08:14→17:18)
[2022-06-07] MEDS: CYANOCOBALAMIN 500 MCG TABLET PO (08:14)
[2022-06-07] MEDS: FLUTICASONE/UMECLIDIN/VILANTER 100-62.5-25 MCG ELLIPTA 1 PUFF INHALATION (11:23)
[2022-06-07 11:42] LABS: Glucose Point of Care 159 mg/dl (65-105)
[2022-06-07 16:53] LABS: Glucose Point of Care 167 mg/dl (65-105)
[2022-06-07 20:05] LABS: Glucose Point of Care 408 mg/dl (65-105)
[2022-06-07] MEDS: MELATONIN 5 MG TABLET PO (21:33)
[2022-06-07] MEDS: traZODone HCL 50 MG TABLET 100 MG PO (21:33)
[2022-06-07 21:53] LABS: Glucose Point of Care 151 mg/dl (65-105)
--- NOTE | 2022-06-07 22:09 | PC.NURSE ---
Patient's POC at 1947 was 408. When making rounds and before calling the MD, my repeat POC at 2149 was 151. Jacquelyn LYON made aware of the discrepancy.
[2022-06-08] VITALS (23 sets, daily range): BP systolic 99–119; BP diastolic 49–85; PULSE 67–104; RESP 16–21; TEMP 36–36.6; O2SAT 97–99
[2022-06-08] MEDS: IPRATROPIUM BR 0.02% INH SOLN 0.5 MG/2.5 ML VIAL INHALATION ×5 (03:40→21:15)
[2022-06-08 04:10] LABS: Basophils Absolute Auto 0.1 K/mm3 (0.0-0.1); Basophils Percent Auto 0.8 % (0.2-1.2); Eosinophils Absolute Auto 0.3 K/mm3 (0-0.3); Eosinophils Percent Auto 2.4 % (0-4.4); Hematocrit 41.9 % (42.0-52.0); Hemoglobin 13.9 g/dL (14.0-18.0); Immature Granulocyte Absolute 0.04 K/mm3 (0.00-0.031); Immature Granulocyte Percent A 0.4 % (0-0.5); Lymphocytes Absolute Auto 1.45 K/mm3 (0.9-3.2); Mean Corpuscular HGB Conc 33.2 g/dl (32-36); Mean Corpuscular Hemoglobin 29.5 pg (26-34); Mean Platelet Volume 9.1 fl (7.4-10.4); Monocytes Absolute Auto 1.1 K/mm3 (0.1-0.6); Monocytes Percent Auto 10.3 % (2.6-8.5); Neutrophils Absolute Auto 7.5 K/mm3 (1.3-6.7); Neutrophils Percent Auto 72.1 % (45.5-73.1); Platelet Count Result 280 k/mm3 (150-375); Red Blood Count 4.71 M/mm3 (4.6-6.20); Red Cell Distribution Width 14.1 % (11.5-14.5); White Blood Count 10.3 K/mm3 (4.5-10.0)
[2022-06-08 04:29] LABS: Alanine Aminotransferase 47 U/L (6-50); Alkaline Phosphatase 76 U/L (38-126); Anion Gap 8 mmol/L (8-16); Aspartate Amino Transferase 66 U/L (17-59); Bilirubin,Total 0.8 mg/dL (0.2-1.3); Blood Urea Nitrogen 25 mg/dL (9-20); Calcium 8.9 mg/dL (8.4-10.2); Carbon Dioxide 30 mmol/L (22-30); Chloride 99 mmol/L (98-107); Estimated CRCL calculation 66 ml/min; Estimated Glomerular Filt Rate 51; Glucose 141 mg/dL (65-110); Sodium 137 mmol/L (137-145)
[2022-06-08] MEDS: hydrOXYzine HCL 25 MG TABLET PO ×3 (06:11→22:18)
--- NOTE | 2022-06-08 07:55 | PM.PNCARD ---
Progress Note: A&P Assessment and Plan (1) Systolic dysfunction: Code(s): I51.9 - Heart disease, unspecified Status: Acute Assessment and Plan: New onset. Acute systolic heart failure. Probably non-ischemic with negative troponin due to CASI, chronic rapid atrial fib. Dilated cardiomyopathy. 06/02/22 Echo: EF 30-35%, mod LVE, mild LVH, mild RV dysfunction with TAPSE 1.6 cm, mild LAE, mild MR/TR, trivial perciardial effusion. Started Entresto 24-26 mg BID. On Metoprolol, Jardiance. On Lasix 40 mg PO BID. Decrease Lasix 40 mg PO daily. Discuss Life vest and he is interested to prevent sudden cardiac arrest, and he currently has it on. (2) COPD (chronic obstructive pulmonary disease): Code(s): J44.9 - Chronic obstructive pulmonary disease, unspecified Status: Acute (3) Pneumonia: Code(s): J18.9 - Pneumonia, unspecified organism Status: Acute Assessment and Plan: On antibiotics. (4) Tobacco abuse: Code(s): Z72.0 - Tobacco use Status: Chronic Assessment and Plan: Counseled regarding smoking cessation. (5) Hypertension: Code(s): I10 - Essential (primary) hypertension Status: Acute Assessment and Plan: Stable. (6) Dyslipidemia: Code(s): E78.5 - Hyperlipidemia, unspecified Status: Acute Assessment and Plan: On Pravastatin. (7) Atrial fibrillation: Qualifiers: Atrial fibrillation type: unspecified chronic Qualified Code(s): I48.20 - Chronic atrial fibrillation, unspecified Code(s): I48.91 - Unspecified atrial fibrillation Status: Acute Assessment and Plan: HR controlled. [id number] 3. On Eliquis and Metoprolol. Rate control with Metoprolol Tartate 100 mg BID. Added Digoxin 125 mcg daily. On Diltiazem 60 mg BID to improve HR control. May d/c home from cardiology standpoint and f/u with me in 1-2 weeks. (8) Coronary artery disease: Qualifiers: Coronary Disease-Associated Artery/Lesion type: [place] artery [place] vs. transplanted heart: [place] heart Associated angina: without angina Qualified Code(s): I25.10 - Atherosclerotic heart disease of [place] coronary artery without angina pectoris Code(s): I25.10 - Atherosclerotic heart disease of [place] coronary artery without angina pectoris Status: Chronic Assessment and Plan: Stable. Subjective Date/time seen: 06/08/22 07:55 Interval history: No sob or chest pains. Exam Const: General: cooperative, healthy appearing and comfortable Orientation/consciousness: oriented to person, oriented to place and oriented to time Resp: Auscultation: no crackles, no rales, rhonchi, wheezes and diminished lung sounds Cardio: Rate: tachycardic Rhythm: abnormal rhythm Heart sounds: no murmurs Peripheral pulses: dorsalis pedis present Neuro: General: oriented to person, oriented to place and oriented to time Extrem: Right lower extremity: no edema Left lower extremity: no edema Objective Data Vital Signs Vital Signs: Vital Signs - 24 hr 06/07/22 08:13 06/07/22 08:00 06/07/22 11:00 Temperature 97.2 F L Pulse Rate 96 89 Pulse Rate [With Activity During Therapy Session] 75 Respiratory Rate 16 Blood Pressure 113/62 Pulse Oximetry 97 Oxygen Delivery Room Air Oxygen Flow Rate Fraction of Inspired Oxygen 06/07/22 11:24 06/07/22 11:25 06/07/22 11:33 Temperature Pulse Rate 75 73 Pulse Rate [With Activity During Therapy Session] Respiratory Rate 18 18 Blood Pressure Pulse Oximetry 96 Oxygen Delivery Room Air Oxygen Flow Rate Fraction of Inspired Oxygen 06/07/22 12:00 06/07/22 15:14 06/07/22 15:22 Temperature 97.9 F Pulse Rate 76 79 81 Pulse Rate [With Activity During Therapy Session] Respiratory Rate 16 18 18 Blood Pressure 104/74 Pulse Oximetry 100 Oxygen Delivery Oxygen Flow Rate Fraction of Inspired Oxygen 06/07/22 08:00
[2022-06-08 08:00] LABS: Glucose Point of Care 137 mg/dl (65-105)
[2022-06-08] MEDS: FLUTICASONE/UMECLIDIN/VILANTER 100-62.5-25 MCG ELLIPTA 1 PUFF INHALATION (08:25)
[2022-06-08] MEDS: SPIRONOLACTONE 12.5 MG TABLET PO ×2 (08:39→17:21)
[2022-06-08] MEDS: ASPIRIN 81 MG ENTERIC TABLET PO (08:39)
[2022-06-08] MEDS: NICOTINE (*PBKC) 21 MG PATCH 1 PATCH TRANSDERM (08:39)
[2022-06-08] MEDS: CHOLECALCIFEROL 1,000 UNITS TABLET 2000 UNITS PO (08:39)
[2022-06-08] MEDS: POTASSIUM CHLORIDE 20 MEQ TABLET.ER 40 MEQ PO (08:39)
[2022-06-08] MEDS: APIXABAN 5 MG TABLET BY MOUTH ×2 (08:39→17:21)
[2022-06-08] MEDS: buPROPion HCL SR (12 HR) 150 MG TAB PO (08:39)
[2022-06-08] MEDS: DIGOXIN TAB 125 MCG TABLET PO (08:40)
[2022-06-08] MEDS: SACUBITRIL/VALSARTAN 24-26 MG TABLET 1 TAB PO ×2 (08:40→20:33)
[2022-06-08] MEDS: LORATADINE 10 MG TABLET PO (08:40)
[2022-06-08] MEDS: MAGNESIUM OXIDE 400 MG TABLET PO ×2 (08:40→17:21)
[2022-06-08] MEDS: PARoxetine 20 MG TABLET 40 MG PO (08:40)
[2022-06-08] MEDS: EMPAGLIFLOZIN 10 MG TABLET BY MOUTH (08:40)
[2022-06-08] MEDS: dilTIAZem HCL 60 MG TABLET PO ×2 (08:40→20:34)
[2022-06-08] MEDS: PRAVASTATIN SODIUM 20 MG TABLET PO (08:40)
[2022-06-08] MEDS: METOPROLOL TARTRATE 50 MG TAB 100 MG PO ×2 (08:40→20:34)
[2022-06-08] MEDS: PANTOPRAZOLE 40 MG TABLET BY MOUTH (08:40)
[2022-06-08] MEDS: CYANOCOBALAMIN 500 MCG TABLET PO (08:40)
[2022-06-08] MEDS: FUROSEMIDE 40 MG TABLET PO (08:40)
[2022-06-08] MEDS: ACETAMINOPHEN 325 MG TABLET 650 MG PO (08:42)
[2022-06-08 11:59] LABS: Glucose Point of Care 184 mg/dl (65-105)
--- NOTE | 2022-06-08 14:05 | PC.NURSE ---
patient transported to room 248 at 1400. all belongings with patient. nurse notified and no further questions at this time. patient placed on new floor monitor.
[2022-06-08 17:07] LABS: Glucose Point of Care 146 mg/dl (65-105)
--- NOTE | 2022-06-08 17:56 | PM.IMPN ---
Progress Note: A&P Assessment and Plan (1) Acute respiratory failure with hypoxia: Code(s): J96.01 - Acute respiratory failure with hypoxia Status: Acute Assessment and Plan: Patient requiring supplemental oxygen by nasal cannula upon arrival to ED. No home O2 use. 06/02 worsening respiratory status and placed on bipap. pH 7.38, pCO2 mildly elevated 46, pO2 137 on 15L NRB, bicab not elevated suggesting acute process. Continue bipap 15/8/20/100% and titrate FiO2 to landy >90%. Consult pulmonology. Continue management for COPD and pneumonia. D-dimer elevated 1.74. CTA chest shows no PE, mild pulmonary edema and small but lateral posterior layering pleural effusions with associated bilateral dependent compressive atelectasis. (2) Pneumonia: Code(s): J18.9 - Pneumonia, unspecified organism Status: Acute Assessment and Plan: 06/02 Chest x-ray with acute worsening of bilateral infiltrates Given worsening pneumonia will escalate therapy. Patient has COPD and will given dual anti-pseudomonas coverage with Cefepime 2 grams IV Q8 hours and Levaquin 750 mg Q24 hours. check legionella, mycoplasma, pneumococcal antigens and sputum culture Check MRSA nasal swab. No MRSA risk factors apparent. lactic acid 1.1 on admission, WBC 8 to 11, Blood cultures pending. (3) COPD (chronic obstructive pulmonary disease): Code(s): J44.9 - Chronic obstructive pulmonary disease, unspecified Status: Acute Assessment and Plan: FEV1:FVC 63% with borderline airflow obstruction FEV1 on 05/14/22 PFTs. No wheezing on exam. Given solumedrol 125 mg IV x1. Will hold off on steroids at this time given worsening pneumonia. Duonebs Q4 hours. Pulmonology consulted. Laminator to quit smoking. (4) PAF (paroxysmal atrial fibrillation): Code(s): I48.0 - Paroxysmal atrial fibrillation Status: Acute Assessment and Plan: Patient with afib RVR 120s, likely worsened since patient reportedly did not take medications prior to admission and with worsening pneumonia. Check TSH. Continue management of pneumonia. Monitor telemetry. Increase metoprolol 50 mg q.8 hours and continue Eliquis. Consult Cardiology if persists or worsens. Check Echocardiogram (5) Tobacco abuse: Code(s): Z72.0 - Tobacco use Status: Chronic Assessment and Plan: Nicotine patch as needed (6) CASI on CPAP: Code(s): G47.33 - Obstructive sleep apnea (adult) (pediatric); Z99.89 - Dependence on other enabling machines and devices Status: Chronic Assessment and Plan: Currently on bipap (7) Morbid obesity with BMI of 40.0-44.9, adult: Code(s): E66.01 - Morbid (severe) obesity due to excess calories; Z68.41 - Body mass index [BMI] 40.0-44.9, adult Status: Acute Assessment and Plan: Lifestyle and diet modifications (8) Type 2 DM with CKD stage 3 and hypertension: Code(s): E11.22 - Type 2 diabetes mellitus with diabetic chronic kidney disease; I12.9 - Hypertensive chronic kidney disease with stage 1 through stage 4 chronic kidney disease, or unspecified chronic kidney disease; N18.30 - Chronic kidney disease, stage 3 unspecified Status: Chronic Assessment and Plan: Carb consistent 1800 calorie diet. Accu-checks AC/HS with moderate aspart sliding scale. Continue SGLT-2 and DPP-4. Goal 140-180 (9) Major depressive disorder in partial remission: Qualifiers: Major depression recurrence: recurrent Qualified Code(s): F33.41 - Major depressive disorder, recurrent, in partial remission Code(s): F32.4 - Major depressive disorder, single episode, in partial remission Status: Chronic Assessment and Plan: With anxiety, Continue home meds (10) Coronary artery disease: Qualifiers: Coronary Disease-Associated Artery/Lesion type: [place] artery [place] vs. transplanted heart: [place] heart Associated angina: without angina Qualified Code(s):
[2022-06-08] MEDS: traZODone HCL 50 MG TABLET 100 MG PO (20:33)
[2022-06-08] MEDS: MELATONIN 5 MG TABLET PO (20:34)
[2022-06-08 20:35] LABS: Glucose Point of Care 187 mg/dl (65-105)
[2022-06-09] VITALS (24 sets, daily range): BP systolic 106–119; BP diastolic 64–75; PULSE 65–91; RESP 18–21; TEMP 36.2–36.6; O2SAT 97–100
[2022-06-09] MEDS: IPRATROPIUM BR 0.02% INH SOLN 0.5 MG/2.5 ML VIAL INHALATION ×5 (04:20→21:03)
[2022-06-09] MEDS: hydrOXYzine HCL 25 MG TABLET PO ×3 (06:00→21:18)
[2022-06-09] MEDS: FLUTICASONE/UMECLIDIN/VILANTER 100-62.5-25 MCG ELLIPTA 1 PUFF INHALATION (08:15)
[2022-06-09 08:51] LABS: Glucose Point of Care 161 mg/dl (65-105)
[2022-06-09] MEDS: SACUBITRIL/VALSARTAN 24-26 MG TABLET 1 TAB PO ×2 (08:57→21:20)
[2022-06-09] MEDS: dilTIAZem HCL 60 MG TABLET PO ×2 (08:58→21:19)
[2022-06-09] MEDS: ASPIRIN 81 MG ENTERIC TABLET PO (08:58)
[2022-06-09] MEDS: METOPROLOL TARTRATE 50 MG TAB 100 MG PO ×2 (08:58→21:18)
[2022-06-09] MEDS: CHOLECALCIFEROL 1,000 UNITS TABLET 2000 UNITS PO (08:58)
[2022-06-09] MEDS: POTASSIUM CHLORIDE 20 MEQ TABLET.ER 40 MEQ PO (08:58)
[2022-06-09] MEDS: FUROSEMIDE 40 MG TABLET PO (08:58)
[2022-06-09] MEDS: PANTOPRAZOLE 40 MG TABLET BY MOUTH (08:58)
[2022-06-09] MEDS: EMPAGLIFLOZIN 10 MG TABLET BY MOUTH (08:58)
[2022-06-09] MEDS: DIGOXIN TAB 125 MCG TABLET PO (08:59)
[2022-06-09] MEDS: PARoxetine 20 MG TABLET 40 MG PO (08:59)
[2022-06-09] MEDS: SPIRONOLACTONE 12.5 MG TABLET PO ×2 (08:59→18:04)
[2022-06-09] MEDS: CYANOCOBALAMIN 500 MCG TABLET PO (08:59)
[2022-06-09] MEDS: PRAVASTATIN SODIUM 20 MG TABLET PO (08:59)
[2022-06-09] MEDS: LORATADINE 10 MG TABLET PO (08:59)
[2022-06-09] MEDS: APIXABAN 5 MG TABLET BY MOUTH ×2 (08:59→18:04)
[2022-06-09] MEDS: MAGNESIUM OXIDE 400 MG TABLET PO ×2 (08:59→18:04)
[2022-06-09] MEDS: buPROPion HCL SR (12 HR) 150 MG TAB PO (08:59)
[2022-06-09] MEDS: NICOTINE (*PBKC) 21 MG PATCH 1 PATCH TRANSDERM (09:00)
[2022-06-09 12:54] LABS: Glucose Point of Care 212 mg/dl (65-105)
[2022-06-09] MEDS: INSULIN ASPART (*BKC) 100 UNITS/ML SUB-Q (13:05)
--- NOTE | 2022-06-09 13:14 | PM.IMPN ---
Progress Note: A&P Assessment and Plan (1) Acute respiratory failure with hypoxia: Code(s): J96.01 - Acute respiratory failure with hypoxia Status: Acute Assessment and Plan: Patient requiring supplemental oxygen by nasal cannula upon arrival to ED. 06/02 worsening respiratory status and placed on bipap. pH 7.38, pCO2 mildly elevated 46, pO2 137 on 15L NRB, bicab not elevated suggesting acute process. Continue bipap 158/20/100% and titrate FiO2 to landy >90%. Consult pulmonology. D-dimer elevated 1.74. CTA chest shows no PE, mild pulmonary edema and small but lateral posterior layering pleural effusions with associated bilateral dependent compressive atelectasis. 06/09 Continue management for COPD pt still sounding very wheezy today (2) COPD (chronic obstructive pulmonary disease): Code(s): J44.9 - Chronic obstructive pulmonary disease, unspecified Status: Acute Assessment and Plan: Duonebs Q4 hours. Pulmonology consulted. Missionary Coordinator to quit smoking. (3) PAF (paroxysmal atrial fibrillation): Code(s): I48.0 - Paroxysmal atrial fibrillation Status: Acute Assessment and Plan: Patient with afib RVR 120s, likely worsened since patient reportedly did not take medications prior to admission and with worsening pneumonia. Check TSH. Continue management of pneumonia. Monitor telemetry. Increase metoprolol 50 mg q.8 hours and continue Eliquis. 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 Accu-checks AC/HS with moderate aspart sliding scale. Continue SGLT-2 and DPP-4. Goal 140-180 (8) Major depressive disorder in partial remission: Qualifiers: Major depression recurrence: recurrent Qualified Code(s): F33.41 - Major depressive disorder, recurrent, in partial remission Code(s): F32.4 - Major depressive disorder, single episode, in partial remission Status: Chronic Assessment and Plan: With anxiety, Continue home meds (9) Coronary artery disease: Qualifiers: Coronary Disease-Associated Artery/Lesion type: [place] artery [place] vs. transplanted heart: [place] heart Associated angina: without angina Qualified Code(s): I25.10 - Atherosclerotic heart disease of [place] coronary artery without angina pectoris Code(s): I25.10 - Atherosclerotic heart disease of [place] coronary artery without angina pectoris Status: Chronic Assessment and Plan: Continue home meds. Continue to monitor (10) Pleural effusion: Code(s): J90 - Pleural effusion, not elsewhere classified Status: Acute Assessment and Plan: mild pulmonary edema small bilateral pleural effusions noted chest x-ray. BNP 2600 on admission. pt transitioned to oral lasix order cxr today as pt remains very wheezy Plan (1) Acute respiratory failure with hypoxia: on 2 liters of oxygen CTA chest shows no PE, mild pulmonary edema and small but lateral posterior layering pleural effusions with associated shanel
[2022-06-09] MEDS: FUROSEMIDE INJ 40 MG/4 ML VIAL 20 MG IV PUSH (14:41)
[2022-06-09] MEDS: methylPREDNISolone SOD SUCC 40 MG VIAL IV PUSH (14:42)
[2022-06-09 17:06] LABS: Glucose Point of Care 168 mg/dl (65-105)
[2022-06-09] MEDS: MELATONIN 5 MG TABLET PO (21:18)
[2022-06-09] MEDS: traZODone HCL 50 MG TABLET 100 MG PO (21:20)
[2022-06-09] MEDS: ACETAMINOPHEN 325 MG TABLET 650 MG PO (21:25)
[2022-06-10] VITALS (21 sets, daily range): BP systolic 115–126; BP diastolic 72–83; PULSE 61–94; RESP 16–18; TEMP 35.7–36.4; O2SAT 94–99
[2022-06-10] MEDS: IPRATROPIUM BR 0.02% INH SOLN 0.5 MG/2.5 ML VIAL INHALATION ×4 (01:30→11:11)
[2022-06-10 02:46] LABS: Glucose Point of Care 290 mg/dl (65-105)
[2022-06-10] MEDS: hydrOXYzine HCL 25 MG TABLET PO (06:09)
--- NOTE | 2022-06-10 08:22 | PM.IMPN ---
Progress Note: A&P Assessment and Plan (1) Acute respiratory failure with hypoxia: Code(s): J96.01 - Acute respiratory failure with hypoxia Status: Acute Assessment and Plan: Patient requiring supplemental oxygen by nasal cannula upon arrival to ED. 06/02 worsening respiratory status and placed on bipap. pH 7.38, pCO2 mildly elevated 46, pO2 137 on 15L NRB, bicab not elevated suggesting acute process. Continue bipap 15/8/20/100% and titrate FiO2 to landy >90%. Consult pulmonology. D-dimer elevated 1.74. CTA chest shows no PE, mild pulmonary edema and small but lateral posterior layering pleural effusions with associated bilateral dependent compressive atelectasis. (2) COPD (chronic obstructive pulmonary disease): Code(s): J44.9 - Chronic obstructive pulmonary disease, unspecified Status: Acute Assessment and Plan: Duonebs Q4 hours. Pulmonology consulted. Lead Nuclear Medicine Technologist to quit smoking. (3) PAF (paroxysmal atrial fibrillation): Code(s): I48.0 - Paroxysmal atrial fibrillation Status: Acute Assessment and Plan: Patient with afib RVR 120s, likely worsened since patient reportedly did not take medications prior to admission and with worsening pneumonia. Check TSH. Continue management of pneumonia. Monitor telemetry. Increase metoprolol 50 mg q.8 hours and continue Eliquis. 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 Accu-checks AC/HS with moderate aspart sliding scale. Continue SGLT-2 and DPP-4. Goal 140-180 (8) Major depressive disorder in partial remission: Qualifiers: Major depression recurrence: recurrent Qualified Code(s): F33.41 - Major depressive disorder, recurrent, in partial remission Code(s): F32.4 - Major depressive disorder, single episode, in partial remission Status: Chronic Assessment and Plan: With anxiety, Continue home meds (9) Coronary artery disease: Qualifiers: Coronary Disease-Associated Artery/Lesion type: [place] artery [place] vs. transplanted heart: [place] heart Associated angina: without angina Qualified Code(s): I25.10 - Atherosclerotic heart disease of [place] coronary artery without angina pectoris Code(s): I25.10 - Atherosclerotic heart disease of [place] coronary artery without angina pectoris Status: Chronic Assessment and Plan: Continue home meds. Continue to monitor (10) Pleural effusion: Code(s): J90 - Pleural effusion, not elsewhere classified Status: Acute Plan # Acute respiratory failure with hypoxia: on 2 liters of oxygen CTA chest shows no PE, mild pulmonary edema and small but lateral posterior layering pleural effusions with associated bilateral dependent compressive atelectasis. Cardiology and Pulmonology following # pneumonia ruled out more likely copd excerbation 06/02 Chest x-ray with acute worsening of bilateral infiltrates CT chest did not show any pneumonia Due to COPD on dual anti-pseudomonas coverage
[2022-06-10 08:30] LABS: Glucose Point of Care 180 mg/dl (65-105)
[2022-06-10] MEDS: dilTIAZem HCL 60 MG TABLET PO (08:39)
[2022-06-10] MEDS: PARoxetine 20 MG TABLET 40 MG PO (08:40)
[2022-06-10] MEDS: POTASSIUM CHLORIDE 20 MEQ TABLET.ER 40 MEQ PO (08:40)
[2022-06-10] MEDS: buPROPion HCL SR (12 HR) 150 MG TAB PO (08:40)
[2022-06-10] MEDS: EMPAGLIFLOZIN 10 MG TABLET BY MOUTH (08:40)
[2022-06-10] MEDS: SACUBITRIL/VALSARTAN 24-26 MG TABLET 1 TAB PO (08:40)
[2022-06-10] MEDS: CHOLECALCIFEROL 1,000 UNITS TABLET 2000 UNITS PO (08:40)
[2022-06-10] MEDS: MAGNESIUM OXIDE 400 MG TABLET PO (08:40)
[2022-06-10] MEDS: PRAVASTATIN SODIUM 20 MG TABLET PO (08:41)
[2022-06-10] MEDS: METOPROLOL TARTRATE 50 MG TAB 100 MG PO (08:41)
[2022-06-10] MEDS: SPIRONOLACTONE 12.5 MG TABLET PO (08:41)
[2022-06-10] MEDS: LORATADINE 10 MG TABLET PO (08:41)
[2022-06-10] MEDS: APIXABAN 5 MG TABLET BY MOUTH (08:41)
[2022-06-10] MEDS: PANTOPRAZOLE 40 MG TABLET BY MOUTH (08:46)
[2022-06-10] MEDS: DIGOXIN TAB 125 MCG TABLET PO (08:46)
[2022-06-10] MEDS: ASPIRIN 81 MG ENTERIC TABLET PO (08:46)
[2022-06-10] MEDS: FUROSEMIDE 40 MG TABLET PO (08:47)
[2022-06-10] MEDS: CYANOCOBALAMIN 500 MCG TABLET PO (08:47)
[2022-06-10] MEDS: NICOTINE (*PBKC) 21 MG PATCH 1 PATCH TRANSDERM (08:48)
[2022-06-10] MEDS: FLUTICASONE/UMECLIDIN/VILANTER 100-62.5-25 MCG ELLIPTA 1 PUFF INHALATION (09:05)
[2022-06-10 09:10] LABS: Basophils Percent Auto 0.2 % (0.2-1.2); Hematocrit 46.4 % (42.0-52.0); Hemoglobin 15.3 g/dL (14.0-18.0); Immature Granulocyte Absolute 0.04 K/mm3 (0.00-0.031); Immature Granulocyte Percent A 0.3 % (0-0.5); Lymphocytes Absolute Auto 1.29 K/mm3 (0.9-3.2); Lymphocytes Percent Auto 10.8 % (18.3-44.2); Mean Corpuscular Hemoglobin 29.9 pg (26-34); Mean Corpuscular Volume 90.8 fl (80-100); Mean Platelet Volume 9.3 fl (7.4-10.4); Monocytes Absolute Auto 0.6 K/mm3 (0.1-0.6); Monocytes Percent Auto 4.7 % (2.6-8.5); Neutrophils Absolute Auto 10.1 K/mm3 (1.3-6.7); Platelet Count Result 311 k/mm3 (150-375); Red Blood Count 5.11 M/mm3 (4.6-6.20)
[2022-06-10 09:21] LABS: Alanine Aminotransferase 53 U/L (6-50); Albumin Level 4.5 g/dL (3.5-5.1); Alkaline Phosphatase 81 U/L (38-126); Anion Gap 8 mmol/L (8-16); Aspartate Amino Transferase 46 U/L (17-59); Bilirubin,Total 0.8 mg/dL (0.2-1.3); Blood Urea Nitrogen 28 mg/dL (9-20); Calcium 9.8 mg/dL (8.4-10.2); Carbon Dioxide 30 mmol/L (22-30); Chloride 96 mmol/L (98-107); Estimated CRCL calculation 61 ml/min; Estimated Glomerular Filt Rate 47; Glucose 184 mg/dL (65-110); Magnesium 2.3 mg/dL (1.6-2.3); Potassium 4.5 mmol/L (3.4-5.0); Sodium 134 mmol/L (137-145)
[2022-06-10 12:15] LABS: Glucose Point of Care 168 mg/dl (65-105)
--- NOTE | 2022-06-10 13:03 | PM.DS ---
DS: Admitting Diagnosis Discharge Date 06/10/2022 Admitting Diagnosis shortness of breath DS: Discharge Diagnosis Discharge Diagnosis (1) Acute respiratory failure with hypoxia: Code(s): J96.01 - Acute respiratory failure with hypoxia Status: Acute (2) COPD (chronic obstructive pulmonary disease): Code(s): J44.9 - Chronic obstructive pulmonary disease, unspecified Status: Acute (3) PAF (paroxysmal atrial fibrillation): Code(s): I48.0 - Paroxysmal atrial fibrillation Status: Acute (4) Tobacco abuse: Code(s): Z72.0 - Tobacco use Status: Chronic (5) CASI on CPAP: Code(s): G47.33 - Obstructive sleep apnea (adult) (pediatric); Z99.89 - Dependence on other enabling machines and devices Status: Chronic (6) Morbid obesity with BMI of 40.0-44.9, adult: Code(s): E66.01 - Morbid (severe) obesity due to excess calories; Z68.41 - Body mass index [BMI] 40.0-44.9, adult Status: Acute (7) Type 2 DM with CKD stage 3 and hypertension: Code(s): E11.22 - Type 2 diabetes mellitus with diabetic chronic kidney disease; I12.9 - Hypertensive chronic kidney disease with stage 1 through stage 4 chronic kidney disease, or unspecified chronic kidney disease; N18.30 - Chronic kidney disease, stage 3 unspecified Status: Chronic (8) Major depressive disorder in partial remission: Qualifiers: Major depression recurrence: recurrent Qualified Code(s): F33.41 - Major depressive disorder, recurrent, in partial remission Code(s): F32.4 - Major depressive disorder, single episode, in partial remission Status: Chronic (9) Coronary artery disease: Qualifiers: Associated angina: without angina Coronary Disease-Associated Artery/Lesion type: [place] artery [place] vs. transplanted heart: [place] heart Qualified Code(s): I25.10 - Atherosclerotic heart disease of [place] coronary artery without angina pectoris Code(s): I25.10 - Atherosclerotic heart disease of [place] coronary artery without angina pectoris Status: Chronic (10) Pleural effusion: Code(s): J90 - Pleural effusion, not elsewhere classified Status: Acute DS: Summary Hospital Course Hospital Course: # Acute respiratory failure with hypoxia: on 2 liters of oxygen CTA chest shows no PE, mild pulmonary edema and small but lateral posterior layering pleural effusions with associated bilateral dependent compressive atelectasis. Cardiology and Pulmonology following Home oxygen evaluation prior to discharge revealed no oxygen requirement. # pneumonia ruled out more likely copd excerbation 06/02 Chest x-ray with acute worsening of bilateral infiltrates CT chest did not show any pneumonia Due to COPD on dual anti-pseudomonas coverage with Cefepime 2 grams IV Q8 hours and Levaquin 750 mg Q24 hours. cBlood culture still negative till date Check MRSA nasal swab negative lactic acid 1.1 on admission, WBC 8 to 11, pt completed levaquin doses # acute CHF? with pleural effusions EF 30-35% CT showed Pulm edema Continue diuretics, Entresto, Jardiance. lasix and Metoprolol per cardiology life vest fitted will need to continue until follow-up with cardiology # cOPD (chronic obstructive pulmonary disease): order iv methypred 40mg x1? Duonebs Q4 hours. Pulmonology consulted. [place] Dental Lab Technician to quit smoking. # pAF (paroxysmal atrial fibrillation): RVR resolved TSH wnl Continue Cardizem 60mg bid, metoprolol? 50 mg q.8 hours, Digoxin 125mcg daily? and? continue Eliquis. Cardiology following # tobacco abuse: Nicotine patch as needed # Casi on CPAP: Currently on bipap uses CPAP at home # morbid obesity with BMI of 40.0-44.9, adult: Lifestyle and diet modifications # type 2 DM with CKD stage 3 and hypertension: Carb consistent 1800 calorie diet. Accu-checks AC/HS with moderate aspart sliding scale. Continue SGLT-2 and DPP-4. Goal 140-180 # major depressive disorder in [place]
--- NOTE | 2022-06-10 15:48 | PCRCNOTE ---
HOME O2 EVAL COMPLETE. PATIENT DOES NOT REQUIRE HOME O2. RN NOTIFIED.
== END 2022-06-10 16:25 | disposition home health service (06) | DRG 291 ==
LOC: ANHED 21:50 → ANH2MED 23:08 → ANHIMU 06-02 07:34 → ANH2MED 06-02 07:45 → ANHIMU 06-02 07:47 → ANH2MED 06-08 14:02
PROVIDERS: Emergency Medicine; Internal Medicine; Nurse Practitioner Family; Admitting Provider Internal Medicine; Emergency Provider Emergency Medicine; PCP Physician Assistant; Visit Provider Internal Medicine
DX: I13.0 Hypertensive heart and chronic kidney disease with heart failure and stage 1 through stage 4 chronic kidney disease, or unspecified chronic kidney disease (principal); I50.21 Acute systolic (congestive) heart failure; J96.01 Acute respiratory failure with hypoxia; J44.1 Chronic obstructive pulmonary disease with (acute) exacerbation; I48.20 Chronic atrial fibrillation, unspecified; Z68.41 Body mass index [BMI] 40.0-44.9, adult; F17.210 Nicotine dependence, cigarettes, uncomplicated; E78.5 Hyperlipidemia, unspecified; I25.10 Atherosclerotic heart disease of native coronary artery without angina pectoris; E66.9 Obesity, unspecified; E66.01 Morbid (severe) obesity due to excess calories; E11.22 Type 2 diabetes mellitus with diabetic chronic kidney disease; N18.30 Chronic kidney disease, stage 3 unspecified; F33.41 Major depressive disorder, recurrent, in partial remission; G47.33 Obstructive sleep apnea (adult) (pediatric); Z88.2 Allergy status to sulfonamides; Z91.011 Allergy to milk products; Z20.822 Contact with and (suspected) exposure to COVID-19
CPT/HCPCS: 36415; 36600; 71045; 71046; 71275; 80053; 81001; 82375; 82805; 82948; 83036; 83050; 83605; 83690; 83735; 83880; 84145; 84443; 84484; 85025; 85027; 85380; 85610; 85730; 86140; 86738; 87040; 87070; 87081; 87205; 87449; 87637; 87899; 93005; 94002; 94003; 94618; 94640; 94660; 94667; 94668; 97110; 97116; 97161; 97165; 97530; 97535; 99285; A9270; C8929; G0378; J0456; J0692; J0696; J1815; J1940; J1956; J2060; J2920; J2930; J3480; J7040; Q9967

== ENCOUNTER 2022-06-17 14:35 | Outpatient (NON) | payer MEDICARE, OTHER, SELFPAY ==
[2022-06-17 15:24] LABS: Alanine Aminotransferase 33 U/L (6-50); Albumin Level 4.3 g/dL (3.5-5.1); Alkaline Phosphatase 91 U/L (38-126); Anion Gap 10 mmol/L (8-16); Aspartate Amino Transferase 28 U/L (17-59); Bilirubin,Total 0.7 mg/dL (0.2-1.3); Blood Urea Nitrogen 9 mg/dL (9-20); Calcium 8.7 mg/dL (8.4-10.2); Carbon Dioxide 26 mmol/L (22-30); Chloride 97 mmol/L (98-107); Estimated Glomerular Filt Rate 51; Glucose 204 mg/dL (65-110); Potassium 3.7 mmol/L (3.4-5.0); Sodium 133 mmol/L (137-145)
[2022-06-17 15:28] LABS: Basophils Absolute Auto 0.1 K/mm3 (0.0-0.1); Basophils Percent Auto 0.6 % (0.2-1.2); Eosinophils Absolute Auto 0.1 K/mm3 (0-0.3); Eosinophils Percent Auto 1.4 % (0-4.4); Hematocrit 46.7 % (42.0-52.0); Hemoglobin 15.5 g/dL (14.0-18.0); Immature Granulocyte Absolute 0.04 K/mm3 (0.00-0.031); Immature Granulocyte Percent A 0.4 % (0-0.5); Lymphocytes Absolute Auto 2.15 K/mm3 (0.9-3.2); Lymphocytes Percent Auto 21.5 % (18.3-44.2); Mean Corpuscular HGB Conc 33.2 g/dl (32-36); Mean Corpuscular Hemoglobin 30.1 pg (26-34); Mean Corpuscular Volume 90.7 fl (80-100); Mean Platelet Volume 9.7 fl (7.4-10.4); Monocytes Absolute Auto 0.9 K/mm3 (0.1-0.6); Monocytes Percent Auto 9.2 % (2.6-8.5); Neutrophils Absolute Auto 6.7 K/mm3 (1.3-6.7); Neutrophils Percent Auto 66.9 % (45.5-73.1); Platelet Count Result 346 k/mm3 (150-375); Red Blood Count 5.15 M/mm3 (4.6-6.20); Red Cell Distribution Width 13.5 % (11.5-14.5)
== END 2022-06-17 14:36 | disposition home or self-care (01) ==
PROVIDERS: PCP Physician Assistant; Visit Provider Internal Medicine
DX: J96.01 Acute respiratory failure with hypoxia (principal); I51.9 Heart disease, unspecified
CPT/HCPCS: 80053; 85025

== ENCOUNTER 2022-08-03 13:10 | Outpatient (CLI) | payer MEDICARE, OTHER, SELFPAY ==
--- NOTE | 2022-08-03 13:52 | ECHO_ITS ---
Patient Info Name: Cas Ruiz Age: 67 years : 1955 Gender: Male Ht: 72 in Wt: 268 lbs BSA: 2.53 m2 HR: 79 bpm BP: 104 / 65 mmHg Heart Rhythm: Atrial Fibrillation Technical Quality: Fair Exam Date: 08/03/2022 1:57 PM Exam Location: [facility] Pulmonary Patient Status: Outpatient Admit Date: 08/03/2022 Staff Ordering Physician: Abilio Juarez DO Examination Supervisor: Aleyda Hernandez RDCS Attending Provider: Abilio Juarez DO Referring Physician: Larry JUNG; Exam Type: CA echo doppler color flow Study Info Indications I51.9 - Heart disease, unspecified Complete two-dimensional, color flow and Doppler transthoracic echocardiogram is performed. Summary 1. Complete two-dimensional, color flow and Doppler transthoracic echocardiogram is performed. 2. Left ventricular chamber dimension is mildly enlarged. 3. Left ventricular systolic function is mildly reduced, estimated at 45-50%. 4. The left ventricular diastolic function is normal. 5. E/e' 7 is not elevated. 6. Atrial fibrillation. 7. Left atrial chamber dimension is mildly enlarged. 8. There is trace tricuspid valve regurgitation. 9. There is trivial pericardial effusion. Left Ventricle E/e' 7 is not elevated. Atrial fibrillation. Left ventricular chamber dimension is mildly enlarged. Left ventricular systolic function is mildly reduced, estimated at 45-50%. The left ventricular diastolic function is normal. Right Ventricle Right ventricular chamber dimension is not well visualized. Left Atria Left atrial chamber dimension is mildly enlarged. Right Atria Right atrial chamber dimension is normal. Aortic Valve The aortic valve is trileaflet. There is no aortic valve stenosis. There is no aortic valve regurgitation. Pulmonic Valve There is no pulmonic regurgitation. Mitral Valve There is no mitral valve stenosis. There is no mitral valve regurgitation. Tricuspid Valve RVSP is not calculated due to an inadequate TR jet. There is trace tricuspid valve regurgitation. Pericardium/Pleural There is trivial pericardial effusion. Inferior Vena Cava Normal inferior vena cava with >50% collapse upon inspiration consistent with normal right atrial pressure, 5 mmHg. Aorta The aortic root size at the sinus of Valsalva is normal. Left Ventricular Outflow Tract Name Value Normal LVOT 2D LVOT Diameter 2.0 cm LVOT Doppler LVOT Peak Gradient 4 mmHg LVOT Mean Gradient 2 mmHg LVOT VTI 17 cm LVOT VTI/AV VTI Ratio 0.7 LVOT Stroke Volume 54 ml LVOT CO 4.0 l/min LVOT CI 1.6 l/min/m2 Pulmonic Valve Name Value Normal RVOT Doppler RVOT Peak Gradient 4 mmHg PV Doppler PV Peak G
== END 2022-08-03 13:11 | disposition home or self-care (01) ==
PROVIDERS: PCP Physician Assistant; Visit Provider Internal Medicine Cardiovascular Disease
DX: I51.9 Heart disease, unspecified (principal); I48.91 Unspecified atrial fibrillation
CPT/HCPCS: 93306

== ENCOUNTER 2023-04-25 11:04 | Emergency (ER) | payer MEDICARE, OTHER, SELFPAY ==
--- NOTE | ~2023-04-25 | XR_ITS ---
EXAMINATION: XR chest 2V DATE: 04/25/2023 12:46 INDICATION: Shortness of breath TECHNIQUE: Frontal and lateral views of the chest are obtained COMPARISON: 06/10/2022 FINDINGS: The lungs are free of acute opacities. No pleural effusion or pneumothorax. The cardiomedia stinal silhouette is normal. There is mild thoracic spondylosis. IMPRESSION: 1. No acute cardiopulmonary abnormality. Reviewed, dictated and finalized at location A. [facility]
[2023-04-25 11:18] VITALS: BP 115/54; PULSE 85; RESP 24; TEMP 36.3; O2SAT 99
--- NOTE | 2023-04-25 12:35 | ED.GENADULT ---
HPI - General Adult General Chief complaint: Shortness of Breath/Dyspnea Stated complaint: SOB Source: patient Mode of arrival: ambulatory Limitations: no limitations History of Present Illness HPI narrative: Patient presents for evaluation of sore throat for the last 2 weeks. He indicates that he feels like his throat is swollen . Denies any fever, chills, nausea, vomiting or diarrhea. He does have a cough and SOB. He smokes 2 ppd per day. He denies sick contacts. He is not taking any medication to assist with his symptoms. Related Data Home Medications Medication Instructions Recorded Confirmed aspirin 81 mg tablet,delayed 81 mg PO DAILY 03/27/19 04/25/23 release (Adult Aspirin Regimen) clonazepam 0.5 mg tablet 0.5 mg PO BID PRN Anxiety 03/27/19 04/25/23 loratadine 10 mg tablet (Allergy 10 mg PO DAILY 03/27/19 04/25/23 Relief (loratadine)) cholecalciferol (vitamin D3) 250 50 mcg PO DAILY 07/18/19 04/25/23 mcg (10,000 unit) capsule mecobalamin (vitamin B12) 5,000 500 mcg PO DAILY 07/18/19 04/25/23 mcg disintegrating tablet melatonin 3 mg capsule 5 mg PO HS 10/10/19 04/25/23 bupropion HCl 150 mg tablet,12 hr 150 mg PO DAILY 01/15/20 04/25/23 sustained-release diphenhydramine HCl 25 mg tablet 75 mg PO BID PRN Allergy Symptoms 01/15/20 04/25/23 (Benadryl Allergy) paliperidone 6 mg tablet,extended 6 mg PO HS 01/15/20 04/25/23 release 24 hr hydroxyzine HCl 25 mg tablet 25 mg PO BID PRN Anxiety 06/02/22 04/25/23 paroxetine HCl 40 mg tablet 40 mg PO DAILY 06/02/22 04/25/23 Allergies Allergy/AdvReac Type Severity Reaction Status Date / Time Sulfa (Sulfonamide Allergy Unknown Unknown Verified 04/25/23 11:26 Antibiotics) niacin AdvReac Mild Flushing Verified 04/25/23 11:26 lactose milk products AdvReac Intermediate GI upset Uncoded 04/25/23 11:26 Review of Systems Review of Systems: CONSTITUTIONAL: Denies fever, chills, or sweats. EYES: Denies visual changes, redness, or discharge. ENT: Reports sore throat and sensation that is throat is swollen . Denies rhinorrhea, congestion, sore throat, or otalgia. CARDIOVASCULAR: Denies chest pain, palpitations, or edema. RESPIRATORY: Reports cough and shortness of breath. GASTROINTESTINAL: Denies abdominal pain, nausea, vomiting, or diarrhea. GENITOURINARY: Denies dysuria or hematuria. SKIN: Denies rash or itching. MUSCULOSKELETAL: Denies back pain, joint pain, or myalgia. NEUROLOGIC: Denies headache, numbness, dizziness, or weakness. PSYCHIATRIC: Denies anxiety or depression. [facility] Past Medical History Medical History (Updated 04/25/23 @ 13:15 by RICHY Bucio, ) Acquired hypothyroidism Atrial fibrillation Coronary artery disease Morbid obesity with BMI of 40.0-44.9, adult Poor dentition Type 2 DM with CKD stage 3 and hypertension Surgical History Surgical History Surgical history unknown Family History Family History Mother Depression Hypertension Family history of arthritis Diabetes mellitus Father Family history of alcoholism Sibling Family history of alcoholism Grandparent Family history of cardiovascular disease Social History Social History Smoking packs per day: 2 Smoking cigarettes per day: 40.0 Years smoked: 47 Smoking pack-years: 94.00 Smoking status: Current every day smoker Tobacco type: cigarettes Second hand tobacco smoke exposure: Yes Alcohol intake: never Substance use: never Substance use type: does not use Lack of Transportation: No Lack of Food: Never True Current Housing: I Have Housing Concerned About Future Housing: No Difficulty Paying Gas/Electric Bills: No Difficulty Paying for Meds: No Currently Unemployed: No Education: High School Diploma/GED Difficulty w/ Childcare o
== END 2023-04-25 13:25 | disposition home or self-care (01) ==
PROVIDERS: Emergency Provider Nurse Practitioner; PCP Physician Assistant
DX: J02.9 Acute pharyngitis, unspecified (principal); R06.02 Shortness of breath; F17.210 Nicotine dependence, cigarettes, uncomplicated; I13.10 Hypertensive heart and chronic kidney disease without heart failure, with stage 1 through stage 4 chronic kidney disease, or unspecified chronic kidney disease; E11.22 Type 2 diabetes mellitus with diabetic chronic kidney disease; N18.30 Chronic kidney disease, stage 3 unspecified; I25.10 Atherosclerotic heart disease of native coronary artery without angina pectoris; E03.9 Hypothyroidism, unspecified; I48.91 Unspecified atrial fibrillation
CPT/HCPCS: 71046; 87081; 87426; 87804; 87880; 99213; G0463

== ENCOUNTER 2024-11-23 18:56 | Emergency (ER) | payer MEDICARE, OTHER, SELFPAY ==
--- OUTSIDE RECORDS SUMMARY | 2008-07-26 05:45 | XMS_ITS | Continuity of Care Document ---
Author Organization [facility] Address [address] [place] [address] Exec utive [facility] [address] [place] [address] Phone Care Team Providers Care Theatrical Dresser Name Role Phone Jamessathish Jairo Unavailable Unavailable Procedures Procedure Date Eye Exam, New Patient Advance Directives Directive Yes / No Effective Date File Name No Information Encounters Encounter Description Practice Location Reason(s) For Visit Diagnoses Date Provider Providers Copied on Encounter [facility], [address], [place], [place], [id number], [place] tel:[phone] [facility] No Information 7-200 9 Feicaitie Jairo. [address] [employer] [facility] [address], [address], [place]. tel:[phone] Family History Family Member Type Diagnosis Age At Onset No Information Payers Payer name Insurance type Covered constitution party ID Authoriza tion(s) No Information Social History [...]
--- NOTE | ~2024-11-23 | XR_ITS ---
XR foot RT min 3V 11/23/2024 19:46 Indication: Right foot wound. Procedure: 3 views right foot Comparison: No prior studies for comparison. Findings: There is mild osteoarthritis of the first metatarsophalangeal joint. No acute fracture, subluxation or dislocation. Lisfranc joint intact. There is moderate diffuse soft tissue swelling. No evidence for osteomyelitis. Impression: 1: No acute bone or joint abnormality. No evidence for osteomyelitis. If there is clinical concern for osteomyelitis, correlation with MRI with contrast recommended. Reviewed, dictated and finalized at location O. Impression: 1: No acute bone or joint abnormality. No evidence for osteomyelitis. If there is clinical concern for osteomyelitis, correlation with MRI with contrast recom mended.
[2024-11-23 19:02] VITALS: BP 133/70; PULSE 70; RESP 16; TEMP 36.7; O2SAT 100
[2024-11-23 19:37] VITALS: BP 125/75; PULSE 94; RESP 16; O2SAT 95
--- NOTE | 2024-11-23 19:51 | ED.GENADULT ---
HPI - General Adult General Chief complaint: Wound/Laceration Stated complaint: R foot wound Time Seen by Provider: 11/23/24 19:33 History of Present Illness HPI narrative: Patient is a 69-year-old male who presents emergency department this evening complaining of a wound to his right foot. Patient is a diabetic. States that he has noticed a wound approximately 3 days ago. Admits that he does have a upper marker that he follows up with out of: [facility]. Denies any recent illness, fevers or chills and denies any trauma to his right foot. No additional symptoms or concerns at this time. Related Data Home Medications ?Medication ?Instructions ?Recorded ?Confirmed ?Last Taken ?Type aspirin 81 mg tablet,delayed 81 mg PO DAILY 03/27/19 11/15/23 Unknown History release (Adult Aspirin Regimen) clonazepam 0.5 mg tablet 0.5 mg PO BID PRN Anxiety 03/27/19 11/15/23 Unknown History loratadine 10 mg tablet (Allergy 10 mg PO DAILY 03/27/19 11/15/23 Unknown History Relief (loratadine)) cholecalciferol (vitamin D3) 250 50 mcg PO DAILY 07/18/19 11/15/23 Unknown History mcg (10,000 unit) capsule mecobalamin (vitamin B12) 5,000 500 mcg PO DAILY 07/18/19 11/15/23 Unknown History mcg disintegrating tablet melatonin 3 mg capsule 5 mg PO HS 10/10/19 11/15/23 Unknown History bupropion HCl 150 mg tablet,12 hr 150 mg PO DAILY 01/15/20 11/15/23 Unknown History sustained-release paliperidone 6 mg tablet,extended 6 mg PO HS 01/15/20 11/15/23 Unknown History release 24 hr hydroxyzine HCl 25 mg tablet 25 mg PO BID PRN Anxiety 06/02/22 11/15/23 Unknown History paroxetine HCl 40 mg tablet 40 mg PO DAILY 06/02/22 11/15/23 Unknown History Allergies Allergy/AdvReac Type Severity Reaction Status Date / Time Sulfa (Sulfonamide Allergy Unknown Unknown Verified 11/15/23 13:04 Antibiotics) niacin AdvReac Mild Flushing Verified 11/15/23 13:04 lactose milk products AdvReac Intermediate GI upset Uncoded 11/15/23 13:04 Review of Systems Review of Systems: All systems are reviewed and are negative unless stated otherwise in the HPI. [facility] Past Medical History Medical History Morbid obesity with BMI of 40.0-44.9, adult Type 2 DM with CKD stage 3 and hypertension Poor dentition Acquired hypothyroidism Atrial fibrillation Coronary artery disease Surgical History Surgical History Surgical history unknown Family History Family History Mother Depression Hypertension Family history of arthritis Diabetes mellitus Father Family history of alcoholism Sibling Family history of alcoholism Grandparent Family history of cardiovascular disease Social History Social History Smoking packs per day: 2 Smoking cigarettes per day: 40.0 Years smoked: 47 Smoking pack-years: 94.00 Smoking status: Current every day smoker Tobacco type: cigarettes Second hand tobacco smoke exposure: Yes Alcohol intake: never Substance use: never Substance use type: does not use Lack of Transportation: No Lack of Food: Never True Current Housing: I Have Housing Concerned About Future Housing: No Difficulty Paying Gas/Electric Bills: No Difficulty Paying for Meds: No Currently Unemployed: No Education: High School Diploma/GED Difficulty w/ Childcare or Family Care: No Spiritual care concerns: No Exam Narrative: General: Alert, awake, afebrile, in no acute distress. HEENT: PERRL, no rhinorrhea, no post nasal drip, oropharynx clear. Neck: Trachea midline, no JVD, no lymphadenopathy. Cardiovascular: Regular rate and rhythm, no murmurs, rubs or gallops, no peripheral edema. Respiratory: Clear to auscultation bilaterally, no tachypnea, no wheezing, no rhonchi, no rubs, no respiratory distress. Abdomen: Soft, nontender, nondistended, no rebound, no guarding, no peritoneal signs. Musculoskeletal: Wound noted to the right foot at the base of the pinky toe with surrounding swelling, mild erythema, no abscess noted, no purulent drainage. Skin: No rashes or petechia, no signs of infection. Psychiatric: Alert and oriented, normal behavior and judgment for situation. Neurological: Alert and oriented to person, place, and time. Follows all commands. No focal deficits, speech is clear and fluent. Course Vital Signs Vital signs: Vital Signs Temperature 98.1 F 11/23/24 19:02 Pulse Rate 70 11/23/24 19:02 Respiratory Rate 16 11/23/24 19:02 Blood Pressure 133/70 11/23/24 19:02 Pulse Oximetry 100 11/23/24 19:02 Oxygen Delivery Room Air 11/23/24 19:02 Temperature 98.1 F 11/23/24 19:02 Pulse Rate 94 11/23/24 19:37 Respiratory Rate 16 11/23/24 19:37 Blood Pressure 125/75 11/23/24 19:37 Pulse Oximetry 95 11/23/24 19:37 Oxygen Delivery Room Air 11/23/24 19:02 Medical Decision Making MDM Narrative Medical decision making narrative: The patient was evaluated by myself in the emergency department. History is obtained from patient who is an independent historian and physical exam was performed. External medical records were reviewed at this time. IV was established and pertinent tests were ordered. Laboratory results obtained revealing no acute process. Imaging studies obtained included right foot x-ray which was independently interpreted by me revealing: Impression: 1: No acute bone or joint abnormality. No evidence for osteomyelitis. If there is clinical concern for osteomyelitis, correlation with MRI with contrast recommended. Differential diagnosis considerations include diabetic foot ulcer, cellulitis, abscess. Comorbidities impacting this visit include history of diabetes. I have evaluated and discussed social determinants of health with the patient that could potentially impact subsequent diagnosis and treatment plans. On repeat assessment of the patient, reevaluation revealed that the patient is doing well and is in no acute distress. Patient symptoms have improved since he arrived to our emergency department. Repeat vital signs were all reviewed and noted to be stable. Differential diagnosis and treatment plan were discussed with the patient at bedside. Patient agrees with discussion and after shared medical decision making agrees with discharge. All questions were answered to the patient's satisfaction. Patient will follow up with Podiatry in 3-5 days. Patient was provided with strict return precautions and instructed to return to the emergency department if any new or worsening symptoms develop. The patient was discharged in stable condition. Vital Signs Vital Signs: Vital Signs Temperature 98.1 F 11/23/24 19:02 Pulse Rate 70 11/23/24 19:02 Respiratory Rate 16 11/23/24 19:02 Blood Pressure 133/70 11/23/24 19:02 Pulse Oximetry 100 11/23/24 19:02 Oxygen Delivery Room Air 11/23/24 19:02 Temperature 98.1 F 11/23/24 19:02 Pulse Rate 94 11/23/24 19:37 Respiratory Rate 16 11/23/24 19:37 Blood Pressure 125/75 11/23/24 19:37 Pulse Oximetry 95 11/23/24 19:37 Oxygen Delivery Room Air 11/23/24 19:02 Lab Data 11/23/24 19:52 11/23/24 19:52 Labs: Lab Results 11/23/24 Range/Units 19:52 WBC 9.9 (4.5-10.0) K/mm3 RBC 4.48 L (4.6-6.20) M/mm3 Hgb 13.7 L (14.0-18.0) g/dL Hct 40.8 L (42.0-52.0) % MCV 91.1 (80-100) fl MCH 30.6 (26-34) pg MCHC 33.6 (32-36) g/dl RDW 14.0 (11.5-14.5) % Plt Count 266 (150-375) k/mm3 MPV 9.2 (7.4-10.4) fl Immature Gran % (Auto) 0.3 (0-0.5) % Neut % (Auto) 63.3 (45.5-73.1) % Lymph % (Auto) 27.0 (18.3-44.2) % [place] % (Auto) 7.5 (2.6-8.5) % Eos % (Auto) 1.2 (0-4.4) % Baso % (Auto) 0.7 (0.2-1.2) % Lymph # (Auto) 2.66 (0.9-3.2) K/mm3 [place] # (Auto) 0.7 H (0.1-0.6) K/mm3 Eos # (Auto) 0.1 (0-0.3) K/mm3 Baso # (Auto) 0.1 (0.0-0.1) K/mm3 Abs Immat Gran (auto) 0.03 (0.00-0.031) K/mm3 Absolute Neuts (auto) 6.2 (1.3-6.7) K/mm3 Absolute Nucleated RBC 0.000 (0.0-0.012) K/mm3 Nucleated RBC % 0.0 (0.0-0.2) % Sodium 137 (137-145) mmol/L Potassium 4.5 (3.4-5.0) mmol/L Chloride 102 (98-107) mmol/L Carbon Dioxide 28 (22-30) mmol/L Anion Gap 7 (4-12) mmol/L BUN 10 (9-20) mg/dL Creatinine 1.33 H (0.7-1.3) mg/dL Estim Creat Clear Calc 67 ml/min Estimated GFR 54 L (59 - ) Glucose 89 (65-110) mg/dL Calcium 9.6 (8.4-10.2) mg/dL Magnesium 1.7 (1.6-2.3) mg/dL Total Bilirubin 0.3 (0.2-1.3) mg/dL AST 28 (17-59) U/L ALT 19 (6-50) U/L Alkaline Phosphatase 63 (38-126) U/L Total Protein 6.9 (6.3-8.2) g/dL Albumin 3.9 (3.5-5.1) g/dL Discharge Plan Discharge Clinical Impression: Wound of right foot Patient Disposition: Home Condition: Improved Instructions: Antibiotic Form, Chronic Wounds (ED) Additional Instructions: Please follow-up with your upper marker within the next 3-5 days. Take the prescribed antibiotic as instructed. Return to the ED if any new or worsening symptoms develop. Patient Language: Citizen Of [place] Prescriptions: New cephalexin 500 mg capsule 500 mg PO Q12H 7 Days Qty: 14 0RF No Action cholecalciferol (vitamin D3) 250 mcg (10,000 unit) capsule 50 mcg PO DAILY mecobalamin (vitamin B12) 5,000 mcg tablet,disintegrating 500 mcg PO DAILY aspirin [Adult Aspirin Regimen] 81 mg tablet,delayed release (DR/EC) 81 mg PO DAILY clonazepam 0.5 mg tablet 0.5 mg PO BID PRN (Reason: Anxiety) loratadine [Allergy Relief (loratadine)] 10 mg tablet 10 mg PO DAILY bupropion HCl 150 mg tablet sustained-release 12 hr 150 mg PO DAILY melatonin 3 mg capsule 5 mg PO HS paliperidone 6 mg tablet extended release 24hr 6 mg PO HS hydroxyzine HCl 25 mg tablet 25 mg PO BID PRN (Reason: Anxiety) paroxetine HCl 40 mg tablet 40 mg PO DAILY pantoprazole 40 mg tablet,delayed release (DR/EC) See Rx Instructions .ROUTE .COMPLEX Qty: 90 1RF Dose Instruction: TAKE 1 TABLET BY MOUTH DAILY Rx Instructions: TAKE 1 TABLET BY MOUTH DAILY pravastatin 20 mg tablet 20 mg PO DAILY Qty: 90 3RF magnesium oxide 400 mg magnesium tablet 400 mg PO BID Qty: 60 6RF Januvia 100 mg tablet See Rx Instructions .ROUTE .COMPLEX Qty: 90 3RF Dose Instruction: TAKE 1 TABLET BY MOUTH DAILY Rx Instructions: TAKE 1 TABLET BY MOUTH DAILY albuterol sulfate 90 mcg/actuation HFA aerosol inhaler See Rx Instructions .ROUTE .COMPLEX Qty: 8.5 1RF Dose Instruction: INHALE 2 PUFFS BY MOUTH EVERY 6 HOURS NEEDED FOR SHORTNESS OF BREATH OR WHEEZING Rx Instructions: INHALE 2 PUFFS BY MOUTH EVERY 6 HOURS NEEDED FOR SHORTNESS OF BREATH OR WHEEZING Eliquis 5 mg tablet See Rx Instructions .ROUTE .COMPLEX Qty: 180 0RF Dose Instruction: TAKE 1 TABLET BY MOUTH TWICE DAILY Rx Instructions: TAKE 1 TABLET BY MOUTH TWICE DAILY Invokana 100 mg tablet 100 mg PO DAILY Qty: 30 0RF Rx Instructions: NEEDS APPOINTMENT FOR FURTHER REFILLS Trelegy Ellipta 100-62.5-25 mcg blister with device See Rx Instructions .ROUTE .COMPLEX Qty: 60 6RF Dose Instruction: INHALE 1 PUFF BY MOUTH EVERY MORNING. RINSE MOUTH AND SPIT AFTER EACH USE Rx Instructions: INHALE 1 PUFF BY MOUTH EVERY MORNING. RINSE MOUTH AND SPIT AFTER EACH USE metoprolol tartrate 50 mg tablet See Rx Instructions .ROUTE .COMPLEX Qty: 60 5RF Dose Instruction: TAKE 1 TABLET BY MOUTH EVERY 12 HOURS Rx Instructions: TAKE 1 TABLET BY MOUTH EVERY 12 HOURS Follow-up/Referrals: Alejandro Marquez Jr., DPM [Physician, Podiatry] - 3 Days Marie Dutton NP [Primary Care Provider, Internal Medicine] - 3 Days Time of Disposition: 20:14
[2024-11-23 19:58] LABS: Hematocrit 40.8 % (42.0-52.0); Hemoglobin 13.7 g/dL (14.0-18.0); Immature Granulocyte Percent A 0.3 % (0-0.5); Lymphocytes Absolute Auto 2.66 K/mm3 (0.9-3.2); Mean Corpuscular HGB Conc 33.6 g/dl (32-36); Mean Corpuscular Hemoglobin 30.6 pg (26-34); Mean Corpuscular Volume 91.1 fl (80-100); Nucleated Red Blood Cells Absolute Auto 0.000 K/mm3 (0.0-0.012); Nucleated Red Blood Cells Perc 0.0 % (0.0-0.2); Platelet Count Result 266 k/mm3 (150-375); Red Blood Count 4.48 M/mm3 (4.6-6.20); White Blood Count 9.9 K/mm3 (4.5-10.0)
--- OUTSIDE RECORDS SUMMARY | 2024-11-23 19:58 | XMS_ITS | Patient Health Record ---
Author Organization [facility] [employer] Address [address] [place] [address] Care Team Providers Care Program Assistant Name Role Phone Rosemary Avila Primary Care Provider Qian Ambrocio Unavailable [phone] Allergies Allergen (clinical drug ingredient) Drug/Non Drug Allergy documented on EMR Reaction Allergy Type Onset Date Status niacin Niacin Unknown Drug Allergy Active Substance with sulfonamide structure and antibacterial mechanism of action (substance) Sulfa Antibiotics Unknown Drug Allergy Active Results Component Value Reference Range Flag Notes DRUG MONITOR, BENZO, QN, URI [place] ([id number]) Reviewed date:05/02/2024 02:59:24 PM Interpretation: Performing Lab:CB, [facility] [id number] [facility], [facility] HospitalSitmHB[address] Damian Wadsworth, Director - [id number] [facility] Notes/Report: FASTING: NO Alphahydroxyalprazolam NEGATIVE <25 ng/mL Alphahydroxymidazolam NEGATIVE <50 ng/mL Alphahydroxytriazolam NEGATIVE <50 ng/mL Aminoclonazepam 109 <25 ng/mL H medMATCH Aminoclonazepam INCONSISTENT A Hydroxyethylflurazepam NEGATIVE <50 ng/mL Lorazepam NEGATIVE <50 ng/mL Nordiazepam NEGATIVE <50 ng/mL Oxazepam NEGATIVE <50 ng/mL Temazepam NEGATIVE <50 ng/mL Benzodiazepines Comments See Benzodiazepines Notes, LDT Notes Notes and Comments This drug testing is for medical treatment only. Analysis was performed as non-forensic testing and these results should be used only by healthcare providers to render diagnosis or treatment, or to monitor progress of medical conditions. Benzodiazepines Notes: Aminoclonazepam detected is consistent with the use of the drug Clonazepam. LDT Notes: Confirmation tests were developed and their analytical performance characteristics have been determined by [email or web address]. It has not been cleared or approved by the FDA. This assay has been validated pursuant to the CLIA regulations and is used for clinical purposes. medMATCH(R) enables providers to identify if drug use is consistent or inconsistent with a corresponding prescribed medication(s) list. Healthcare Providers needing Interpretation assistance, please contact us at [phone] ( ) M-F, 8am to 10pm EST PRESCRIBED DRUGS, medMATCH(R ) ([id number]) Reviewed date:05/02/2024 02:59:53 PM Interpretation: Performing Lab:[email or web address]en Rivera, [id number] Deepak Coyle MD Notes/Report: FASTING: NO medMATCH Summary Prescribed Prescribed Not Prescribed Consistent Inconsistent Inconsistent Aminoclonazepam UDT Reviewed date:04/18/2024 02:57:35 PM Interpretation: Performing Lab: Notes/Report: THC NEG 0 - 50 ng/ml Cocaine NEG 0 - 300 ng/ml Amphetamine NEG 0 - 1000 ng/ml Buprenorphine (BUP) NEG 0 - 10 ng/ml Secobarbital (Bar) NEG 0 - 300 ng/ml Oxazepam (BZO) NEG 0 - 300 ng/ml 5-ccfazxtyaz-3,8-etdkaupu-4, 3-diph enylpyrrolidine (EDDP) NEG 0 - 300 ng/ml Methamphetamine (MET) NEG 0 - 1000 ng/ml Methylenedioxymethamphetamin e (MDMA) NEG 0 - 500 ng/ml Morphine (MOP 300/[id number]) NEG 0 - 300 ng/ml Methadone (MTD) NEG 0 - 300 ng/ml Phencyclidine (PCP) NEG 0 - 25 ng/ml Nortriptyline (TCA) NEG 0 - 1000 ng/ml Oxycodone NEG 0 - 300 ng/ml x NEG 0 - 300 ng/ml Reason For Referral No Information Medications Medication SIG (Take, Route, Frequency, Duration) Notes Start Date End Date Status PARoxetine HCl 40 MG Tablet 1 tablet in the morning Oral Once a day; Duration: 30 days Active ProAir HFA 108 (90 Base) MCG/ACT Aerosol Solution Inhalation 07/13/2023 Active Januvia 100 MG Tablet Oral 07/13/2023 Not-Taking Gabapentin 300 MG Capsule Oral 07/13/2023 Active Losartan Potassium 25 MG Tablet Oral 07/13/2023 Not-Taking Ipratropium-Albuter ol 0.5-2.5 (3) MG/3ML Solution Inhalation 07/13/2023 Active OneTouch Ultra Strip In Vitro 07/13/2023 Not-Taking clonazePAM 0.5 MG Tablet 1 tablet Oral twice a day; Duration: 30 days 10/26/2024 Active Multivitamin - Tablet 1 tablet Orally Once a day Active Paliperidone ER 3 MG Tablet Extended Release 24 Hour 1 tablet in the morning Oral Once a day; Duration: 30 days Active Magnesium Oxide (Elemental) 400 MG Tablet Oral *Reorder from [facility] for eRx and Interaction Alerts* 07/13/2023 Active clonazePAM 0.5 MG Tablet 1 tablet Oral twice a day; Duration: 30 days 09/27/2024 Active hydrOXYzine HCl 25 MG Tablet 1 tablet Oral twice a day; Duration: 30 days Active glipiZIDE ER 5 MG Tablet Extended Release 24 Hour Oral 07/13/2023 Active Metoprolol Tartrate 50 MG Tablet Oral 07/13/2023 Active Diclofenac Sodium 75 MG Tablet Delayed Release Oral 07/13/2023 Not-Taking buPROPion HCl ER (SR) 150 MG Tablet Extended Release 12 Hour 1 tablet in the morning Oral Once a day; Duration: 30 days Active Pravastatin Sodium 20 MG Tablet Oral 07/13/2023 Active Trelegy Ellipta 100-62.5-25 mcg Aerosol Powder Breath Activated Inhalation *Pick strength-form from [employer]ormis for eRX* 07/13/2023 Not-Taking Pantoprazole Sodium 40 MG Tablet Delayed Release Oral 07/13/2023 Active Neomycin-Polymyxin- HC 3.5-14338-9 Suspension Otic 07/13/2023 Not-Taking Eliquis 5 MG Tablet Oral 07/13/2023 Active Amoxicillin-Pot Clavulanate 875-125 MG Tablet Oral 07/13/2023 Not-Taking Immunizations Vaccine Route Administration Date Status Comme nts Influenza virus vaccine, quadrivalent (IIV4), split virus, 0.25 mL dosage Unknown 01/10/2021 Administered Pfizer Biontech Covid-19 Vac cine 2nd dose Unknown 12/03/2020 Administered Pfizer Biontech Covid-19 Vac cine 2nd dose Unknown 12/24/2020 Administered Pfizer-Biontech Covid-19 Vac cine 1st dose Unknown 08/12/2021 Administered Social History Tobacco Use: Social History Observation Description Date Details (start date - stop date) Current Smoker 01/09/1972 - NA Sex Assigned At : Social History Observation Description Sex Assigned At Male Social History Miscellaneous: Social Info Question Answer Notes Safety issues: Are there any firearms in the house? No Social History Social Info Question Answer Notes Household: Marital Status: Single Number of Adults in household: 1 Number of Children in Household: 0 Level of Education: Finished High School Drug/Alcohol: Social Info Question Answer Notes Drugs Have you used drugs other than those for medical reasons in the past 12 months? No AUDIT-C (Standard) Did you have a drink containing alcohol in the past year? No Tobacco Use: Social Info Question Answer Notes Tobacco Control (Standard) Tobacco use: Current smoker When did you start smoking? 01/09/1972 How often do you smoke cigarettes? Every day How many cigarettes a day do you smoke? 31 or more How soon after you wake up do you smoke your first cigarette? Within 5 minutes Are you interested in quitting? Not ready to quit When did you start smoking? 12/04/1971 Additional Details Category Social Info Options Details Miscellaneous: Occupation: RETIRED Migrated Social History Migrated Social History Alcohol Intake: None 12/05/2018,Tobacco Years: Current every day smoker 11/12/2020,Smoking Status: 47 04/27/2023 Problems Problem Type SNOMED Code ICD Code Onset Dates Problem Status W/U Status Risk Notes Problem Tobacco user (438185864) Nicotine dependence, unspecified, uncomplicated (F17.200) 04/27/19 24 Active confirmed Problem Schizoaffective disorder, bipolar type (03153944) Schizoaffective disorder, bipolar type (F25.0) 07/13/19 24 Active confirmed Problem Generalized anxiety disorder (69718119) Generalized anxiety disorder (F41.1) 07/13/19 Active confirmed Problem Posttraumatic stress disorder (80615336) Post-traumatic stress disorder, chronic (F43.12) 07/13/19 Active confirmed Problem Primary hypersomnia (51228126) 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) 07/13/19 Active confirmed Problem Screening for cardiovascular system disease (439335080) Encounter for screening for cardiovascular disorders (Z13.6) Active confirmed Problem Long-term current use of drug therapy (028526786) Other termite 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 (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 (Z79.899) 07/13/19 Active confirmed Problem Tobacco use (287974282) Nicotine use (Z72.0) Active confirmed Problem Amnesia (45477868) Memory loss o r impairment (R41.3) Active confirmed Vital Signs Heart Rate 72 /min 10/26/2024 Respiratory Rate 18 /min 10/26/2024 Height-cm 180.34 cm 10/26/2024 Blood pressure diastolic 68 mm Hg 10/26/2024 Weight-kg 131.54 kg 10/26/2024 Height 71.00 in 10/26/2024 Blood pressure systolic 110 mm Hg 10/26/2024 Weight 290 lbs 10/26/2024 BMI 40.44 kg/m2 10/26/2024 Encounters Encounter Location Date Provider Diagnosis [facility] [address] [facility] [address] [address] 12/28/2023 Qian Sherman Schizoaffective disorder, bipolar type F25.0 ; Generalized anxiety disorder F41.1 ; Primary hypersomnia F51.11 ; Nicotine dependence, unspecified, uncomplicated F17.200 ; Post-traumatic stress disorder, chronic F43.12 and Other termite helper (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 Z79.899 [facility] [address] [facility] [address] [facility] [address] [place] [address] 04/18/2024 Qian Sherman Schizoaffective disorder, bipolar type F25.0 ; Generalized anxiety disorder F41.1 ; Primary hypersomnia F51.11 ; Nicotine dependence, unspecified, uncomplicated F17.200 ; Post-traumatic stress disorder, chronic F43.12 and Other termite helper (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 Z79.899 [facility] [address] [facility] [address] [facility] [address] [place] [address] 07/11/2024 Qian Therpia Schizoaffective disorder, bipolar type F25.0 ; Generalized anxiety disorder F41.1 ; Primary hypersomnia F51.11 ; Nicotine dependence, unspecified, uncomplicated F17.200 ; Post-traumatic stress disorder, chronic F43.12 ; Other retirement (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 Z79.899 ; Nicotine use Z72.0 and Encounter for screening for cardiovascular disorders Z13.6 [facility], [facility] [address] [place] [address] 10/26/2024 Qian Therpia Schizoaffective disorder, bipolar type F25.0 ; Generalized anxiety disorder F41.1 ; Primary hypersomnia F51.11 ; Nicotine dependence, unspecified, uncomplicated F17.200 ; Post-traumatic stress disorder, chronic F43.12 ; Other retirement (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 Z79.899 ; Nicotine use Z72.0 ; Encounter for screening for cardiovascular disorders Z13.6 and Memory loss or impairment R41.3 [facility], [facility] [address] [place] [address] 11/29/2023 Qian Sherman [facility], [facility] [address] [place] [address] 12/09/2023 Qian Sherman Schizoaffective disorder, bipolar type F25.0 [facility] [address] [place] [address] 12/22/2023 Qian Sherman [facility], [facility] [address] [place] [address] 03/06/2024 Qianmarie Sherman [facility], [facility] [address] [place] [address] 07/25/2024 Qian Therpia [facility], [facility] [address] [place] [address] 07/26/2024 Qian Therpia [facility], [facility] [address] [place] [address] 09/06/2024 Qian Therpia Schizoaffective disorder, bipolar type F25.0 and Generalized anxiety disorder F41.1 [facility], [facility] [address] [place] [address] 09/27/2024 Qian Sherman Generalized anxiety disorder F41.1 [facility] [employer] [address] [place] [address] 10/27/2024 Qianmegan Bedollapia Assessments Encounter Date Diagnosis (ICD Code) Assessment Notes Treatment Notes Treatment Clinical Notes Section Notes 12/09/2023 Schizoaffective disorder, bipolar type (ICD-10 - F25.0) 12/28/2023 Schizoaffective disorder, bipolar type (ICD-10 - F25.0) Presently taking Wellbutrin XL 150 DAILY, Invega 6 mg daily, PAXIL 40 mg daily, Clonazpeam 0.5 mg BID, Vistaril 25 mg BID Schizoaffective Bipolar- AIMS= 0 12/28/23- missing many teeth and poor oral health no dentures Wellbutrin XL 150 DAILY, Invega 6 mg daily, PAXIL 40 mg daily, Anxiety Clonazpeam 0.5 mg BID, Vistaril 25 mg BID Hypersomnia- SLEEP hygeine PTSD- therapy n/c BUZZ VA- hx Tobacco use Do not smoke. Nicotine and other chemicals in cigarettes and cigars can cause lung damage. Ask your healthcare provider for information if you currently smoke and need help to quit. E-cigarettes or smokeless tobacco still contain nicotine. Talk to your healthcare provider before you use these products. education on decrease to stopping nicotine products and stop smoking hotline given http_s://www.davon .org/About-Mental -Illness/Treatmen ts/Mental-Health- Medications http_s://www.davon .org/About-Mental -Illness/Mental-H ealth-Conditions http_s://psychcen tral.com/depressi on/the-cognitive- ovpmpgcs-ym-vjtap ssion#treatments http__s://www.nim h.nih.gov/health/ topics/mental-hea lth-medications http__s://www.nam i.org/About-Menta l-Illness/Treatme nts/Mental-Health -Medications educated on all medications, benefits, side effects and risk, and educated on depression, anxiety, and ADHD, mood d/o and educated on compliance of medications, metabolic and movement d/o education appointment's, continue therapy discussion with patient about course of treatment and patient instructions. education on serotonin syndrome Discussed and educated pt regarding benzodiazepines are generally not intended for prolonged use and that use can cause tolerance, dependence, depression, and associated memory issues including dementias (this list is not exhaustive). Benzodiazepine use is generally not recommended concurrently with pain medications and/or other controlled substances educated on all medications, benefits, side effects and risk, and educated on depression, anxiety, and ADHD, mood d/o and educated on compliance of medications, metabolic and movement d/o education appointment is, continue therapy discussion with patient about course of treatment and patient instructions. education on serotonin syndrome SSRI/SNRI side effects discussed including but not limited to, gastric upset, nausea, vomiting, diarrhea and/or constipation, weight changes, sexual side effects including loss of libido, increased suicidal thoughts/behavior s in children and young adults, and serotonin syndrome. Patient educated on all medications including potential benefits, side effects, risks. Educated on proper dosing schedule and importance of compliance Second generation antipsychotics (SGAs) have metabolic syndrome issues with weight gain, increase in prolactin, increased waist circumference, increased lipids, and increased glucose. Thus routine monitoring of weight, metabolic labs, etc. is indicated. A general rank ordering of antipsychotics that have the greatest to the least risk of metabolic effects is olanzapine, quetiapine, risperidone, ziprasidone, and aripiprazole. However, weight gain can occur with all of these drugs and considerable variability exists among patients receiving the same drug regarding the risk of metabolic effects. Anti-psychotic agents not only increase the risk of metabolic disorder, they also increase the risk of CVA, akathisia, and movement disorders including EPS or tardive dyskinesia (more common with first generation antipsychotics) and more. Elderly- discussed risks, cognition, sedation, falls, metabolic, movement and atypical antipsychotics carry a black-box warning for increased risk of and cerebrovascular events in dementia. Medication Management and Follow-Up - Plan: - Schedule follow-up appointments every 1-3 months to monitor the patient's response to the medication regimen. - Reinforce the importance of avoiding recreational drug use due to potential neurotoxicity and interactions with prescribed medications. 12/28/2023 Generalized anxiety disorder (ICD-10 - F41.1) Presently taking Wellbutrin XL 150 DAILY, Invega 6 mg daily, PAXIL 40 mg daily, Clonazpeam 0.5 mg BID, Vistaril 25 mg BID Schizoaffective Bipolar- AIMS= 0 12/28/23- missing many teeth and poor oral health no dentures Wellbutrin XL 150 DAILY, Invega 6 mg daily, PAXIL 40 mg daily, Anxiety Clonazpeam 0.5 mg BID, Vistaril 25 mg BID Hypersomnia- SLEEP hygeine PTSD- therapy n/c BUZZ VA- hx Tobacco use Do not smoke. Nicotine and other chemicals in cigarettes and cigars can cause lung damage. Ask your healthcare provider for information if you currently smoke and need help to quit. E-cigarettes or smokeless tobacco still contain nicotine. Talk to your healthcare provider before you use these products. education on decrease to stopping nicotine products and stop smoking hotline given http_s://www.davon .org/About-Mental -Illness/Treatmen ts/Mental-Health- Medications http_s://www.davon .org/About-Mental -Illness/Mental-H ealth-Conditions http_s://psychThermodynamic [employer]/depressi on/the-cognitive- qiakhryn-ka-ubmup ssion#treatments http__s://www.nim .nih.gov/health/ topics/mental-hea lth-medications http__s://www.nam i.org/About-Menta l-Illness/Treatme nts/Mental-Health -Medications educated on all medications, benefits, side effects and risk, and educated on depression, anxiety, and ADHD, mood d/o and educated on compliance of medications, metabolic and movement d/o education appointment's, continue therapy discussion with patient about course of treatment and patient instructions. education on serotonin syndrome Discussed and educated pt regarding benzodiazepines are generally not intended for prolonged use and that use can cause tolerance, dependence, depression, and associated memory issues including dementias (this list is not exhaustive). Benzodiazepine use is generally not recommended concurrently with pain medications and/or other controlled substances educated on all medications, benefits, side effects and risk, and educated on depression, anxiety, and ADHD, mood d/o and educated on compliance of medications, metabolic and movement d/o education appointment is, continue therapy discussion with patient about course of treatment and patient instructions. education on serotonin syndrome SSRI/SNRI side effects discussed including but not limited to, gastric upset, nausea, vomiting, diarrhea and/or constipation, weight changes, sexual side effects including loss of libido, increased suicidal thoughts/behavior s in children and young adults, and serotonin syndrome. Patient educated on all medications including potential benefits, side effects, risks. Educated on proper dosing schedule and importance of compliance Second generation antipsychotics (SGAs) have metabolic syndrome issues with weight gain, increase in prolactin, increased waist circumference, increased lipids, and increased glucose. Thus routine monitoring of weight, metabolic labs, etc. is indicated. A general rank ordering of antipsychotics that have the greatest to the least risk of metabolic effects is olanzapine, quetiapine, risperidone, ziprasidone, and aripiprazole. However, weight gain can occur with all of these drugs and considerable variability exists among patients receiving the same drug regarding the risk of metabolic effects. Anti-psychotic agents not only increase the risk of metabolic disorder, they also increase the risk of CVA, akathisia, and movement disorders including EPS or tardive dyskinesia (more common with first generation antipsychotics) and more. Elderly- discussed risks, cognition, sedation, falls, metabolic, movement and atypical antipsychotics carry a black-box warning for increased risk of and cerebrovascular events in dementia. Medication Management and Follow-Up - Plan: - Schedule follow-up appointments every 1-3 months to monitor the patient's response to the medication regimen. - Reinforce the importance of avoiding recreational drug use due to potential neurotoxicity and interactions with prescribed medications. 04/18/2024 Schizoaffective disorder, bipolar type (ICD-10 - F25.0) patient recommended to see director process improvement and refused- reported stopped all heart rx patient recommended to see PCP and scheduled 05/16 Schizoaffective Bipolar- AIMS= 0 12/28/23- missing many teeth and poor oral health no dentures Wellbutrin XL 150 DAILY, Invega 6 mg daily, PAXIL 40 mg daily,- patient educated on Paxil and over age 6060 years old and risk cardio EKG Anxiety Clonazpeam 0.5 mg BID, Vistaril 25 mg BID Hypersomnia- SLEEP hygeine PTSD- therapy n/c BUZZ CO- hx Tobacco use discuss TMS for smoking cessation and pamplet given - will consider Do not smoke. Nicotine and other chemicals in cigarettes and cigars can cause lung damage. Ask your healthcare provider for information if you currently smoke and need help to quit. E-cigarettes or smokeless tobacco still contain nicotine. Talk to your healthcare provider before you use these products. education on decrease to stopping nicotine products and stop smoking hotline given http_s://www.davon .org/About-Mental -Illness/Treatmen ts/Mental-Health- Medications http_s://www.davon .org/About-Mental -Illness/Mental-H ealth-Conditions http_s://[employer]/depressi on/the-cognitive- zoozwwyd-an-gecnu ssion#treatments http__s://www.[facility].nih.gov/health/ topics/mental-hea lth-medications http__s://www.nam i.org/About-Menta l-Illness/Treatme nts/Mental-Health -Medications educated on all medications, benefits, side effects and risk, and educated on depression, anxiety, and ADHD, mood d/o and educated on compliance of medications, metabolic and movement d/o education appointment's, continue therapy discussion with patient about course of treatment and patient instructions. education on serotonin syndrome Discussed and educated pt regarding benzodiazepines are generally not intended for prolonged use and that use can cause tolerance, dependence, depression, and associated memory issues including dementias (this list is not exhaustive). Benzodiazepine use is generally not recommended concurrently with pain medications and/or other controlled substances educated on all medications, benefits, side effects and risk, and educated on depression, anxiety, and ADHD, mood d/o and educated on compliance of medications, metabolic and movement d/o education appointment is, continue therapy discussion with patient about course of treatment and patient instructions. education on serotonin syndrome SSRI/SNRI side effects discussed including but not limited to, gastric upset, nausea, vomiting, diarrhea and/or constipation, weight changes, sexual side effects including loss of libido, increased suicidal thoughts/behavior s in children and young adults, and serotonin syndrome. Patient educated on all medications including potential benefits, side effects, risks. Educated on proper dosing schedule and importance of compliance Second generation antipsychotics (SGAs) have metabolic syndrome issues with weight gain, increase in prolactin, increased waist circumference, increased lipids, and increased glucose. Thus routine monitoring of weight, metabolic labs, etc. is indicated. A general rank ordering of antipsychotics that have the greatest to the least risk of metabolic effects is olanzapine, quetiapine, risperidone, ziprasidone, and aripiprazole. However, weight gain can occur with all of these drugs and considerable variability exists among patients receiving the same drug regarding the risk of metabolic effects. Anti-psychotic agents not only increase the risk of metabolic disorder, they also increase the risk of CVA, akathisia, and movement disorders including EPS or tardive dyskinesia (more common with first generation antipsychotics) and more. Elderly- discussed risks, cognition, sedation, falls, metabolic, movement and atypical antipsychotics carry a black-box warning for increased risk of and cerebrovascular events in dementia. Medication Management and Follow-Up - Plan: - Schedule follow-up appointments every 1-3 months to monitor the patient's response to the medication regimen. - Reinforce the importance of avoiding recreational drug use due to potential neurotoxicity and interactions with prescribed medications. 07/11/2024 Schizoaffective disorder, bipolar type (ICD-10 - F25.0) patient recommended to see director process improvement and refused- reported stopped all heart rx patient recommended to see PCP and scheduled 05/16 Schizoaffective Bipolar- AIMS= 0 12/28/23- missing many teeth and poor oral health no dentures Wellbutrin XL 150 DAILY, Presently on Invega 6 mg daily, discuss and education on GDR to Invega 3 mg monitor mood, psychosis, depression, agitation, paranoia, monitor metabolic - labs recently PCP - schedule 07/13/24 to discuss results PAXIL 40 mg daily,- patient educated on Paxil and over age [age] years old and risk cardio EKG discuss and educated to schedule to see PCP 07/13/24 and strongly recommended to see director process improvement - reported weakness Anxiety Clonazpeam 0.5 mg BID, Vistaril 25 mg BID Hypersomnia- SLEEP hygeine PTSD- therapy n/c [facility]- hx Tobacco use discuss TMS for smoking cessation and pamplet given - will consider Do not smoke. Nicotine and other chemicals in cigarettes and cigars can cause lung damage. Ask your healthcare provider for information if you currently smoke and need help to quit. E-cigarettes or smokeless tobacco still contain nicotine. Talk to your healthcare provider before you use these products. education on decrease to stopping nicotine products and stop smoking hotline given http_s://www.[facility] .org/About-Mental -Illness/Treatmen ts/Mental-Health- Medications http_s://www.[facility] .org/About-Mental -Illness/Mental-H ealth-Conditions http_s://psychcen tral.com/depressi on/the-cognitive- wgpmkkig-an-lvrln ssion#treatments http__s://www.nim .nih.gov/health/ topics/mental-hea [facility]-medications http__s://www.nam i.org/About-Menta l-Illness/Treatme nts/Mental-Health -Medications educated on all medications, benefits, side effects and risk, and educated on depression, anxiety, and ADHD, mood d/o and educated on compliance of medications, metabolic and movement d/o education appointment's, continue therapy discussion with patient about course of treatment and patient instructions. education on serotonin syndrome Discussed and educated pt regarding benzodiazepines are generally not intended for prolonged use and that use can cause tolerance, dependence, depression, and associated memory issues including dementias (this list is not exhaustive). Benzodiazepine use is generally not recommended concurrently with pain medications and/or other controlled substances educated on all medications, benefits, side effects and risk, and educated on depression, anxiety, and ADHD, mood d/o and educated on compliance of medications, metabolic and movement d/o education appointment is, continue therapy discussion with patient about course of treatment and patient instructions. education on serotonin syndrome SSRI/SNRI side effects discussed including but not limited to, gastric upset, nausea, vomiting, diarrhea and/or constipation, weight changes, sexual side effects including loss of libido, increased suicidal thoughts/behavior s in children and young adults, and serotonin syndrome. Patient educated on all medications including potential benefits, side effects, risks. Educated on proper dosing schedule and importance of compliance Second generation antipsychotics (SGAs) have metabolic syndrome issues with weight gain, increase in prolactin, increased waist circumference, increased lipids, and increased glucose. Thus routine monitoring of weight, metabolic labs, etc. is indicated. A general rank ordering of antipsychotics that have the greatest to the least risk of metabolic effects is olanzapine, quetiapine, risperidone, ziprasidone, and aripiprazole. However, weight gain can occur with all of these drugs and considerable variability exists among patients receiving the same drug regarding the risk of metabolic effects. Anti-psychotic agents not only increase the risk of metabolic disorder, they also increase the risk of CVA, akathisia, and movement disorders including EPS or tardive dyskinesia (more common with first generation antipsychotics) and more. Elderly- discussed risks, cognition, sedation, falls, metabolic, movement and atypical antipsychotics carry a black-box warning for increased risk of and cerebrovascular events in dementia. Medication Management and Follow-Up - Plan: - Schedule follow-up appointments every 1-3 months to monitor the patient's response to the medication regimen. - Reinforce the importance of avoiding recreational drug use due to potential neurotoxicity and interactions with prescribed medications. 09/27/2024 Generalized anxiety disorder (ICD-10 - F41.1) 10/26/2024 Schizoaffective disorder, bipolar type (ICD-10 - F25.0) patient recommended to see director process improvement and refused- reported stopped all heart rx and cxl last appt patient recommended to see PCP for medical and labs 1. Schizoaffective Bipolar- AIMS= 0 12/28/23- missing many teeth and poor oral health no dentures Wellbutrin XL 150 DAILY, Invega 3 mg monitor mood, psychosis, depression, agitation, paranoia, monitor metabolic - labs recently PCP - PAXIL 40 mg daily,- patient educated on Paxil and over age [age] years old and risk cardio EKG discuss and educated to schedule to see PCP 07/13/24 and strongly recommended to see director process improvement - reported weakness 2. Anxiety Clonazpeam 0.5 mg BID, Vistaril 25 mg BID 3. Hypersomnia- SLEEP hygeine 4.PTSD- therapy n/c [facility]- hx 5.Tobacco use discuss TMS for smoking cessation and pamplet given - will consider Do not smoke. Nicotine and other chemicals in cigarettes and cigars can cause lung damage. Ask your healthcare provider for information if you currently smoke and need help to quit. E-cigarettes or smokeless tobacco still contain nicotine. Talk to your healthcare provider before you use these products. education on decrease to stopping nicotine products and stop smoking hotline given 6. Memory loss SLUMS= 18 10/26/24 Discuss and educated about SLUMS Discuss and educated on medications options- patient will wait at this time and see neurologist discuss seeing neurology- patient has provider and recommend MRI http_s://www.[facility] .org/About-Mental -Illness/Treatmen ts/Mental-Health- Medications http_s://www.[facility] .org/About-Mental -Illness/Mental-H ealth-Conditions http_s://psychcen tral.com/depressi on/the-cognitive- iichifsn-vw-qvwtn ssion#treatments http__s://www.[facility].nih.gov/health/ topics/mental-hea [facility]-medications http__s://www.nam i.org/About-Menta l-Illness/Treatme nts/Mental-Health -Medications educated on all medications, benefits, side effects and risk, and educated on depression, anxiety, and ADHD, mood d/o and educated on compliance of medications, metabolic and movement d/o education appointment's, continue therapy discussion with patient about course of treatment and patient instructions. education on serotonin syndrome Discussed and educated pt regarding benzodiazepines are generally not intended for prolonged use and that use can cause tolerance, dependence, depression, and associated memory issues including dementias (this list is not exhaustive). Benzodiazepine use is generally not recommended concurrently with pain medications and/or other controlled substances educated on all medications, benefits, side effects and risk, and educated on depression, anxiety, and ADHD, mood d/o and educated on compliance of medications, metabolic and movement d/o education appointment is, continue therapy discussion with patient about course of treatment and patient instructions. education on serotonin syndrome SSRI/SNRI side effects discussed including but not limited to, gastric upset, nausea, vomiting, diarrhea and/or constipation, weight changes, sexual side effects including loss of libido, increased suicidal thoughts/behavior s in children and young adults, and serotonin syndrome. Patient educated on all medications including potential benefits, side effects, risks. Educated on proper dosing schedule and importance of compliance Second generation antipsychotics (SGAs) have metabolic syndrome issues with weight gain, increase in prolactin, increased waist circumference, increased lipids, and increased glucose. Thus routine monitoring of weight, metabolic labs, etc. is indicated. A general rank ordering of antipsychotics that have the greatest to the least risk of metabolic effects is olanzapine, quetiapine, risperidone, ziprasidone, and aripiprazole. However, weight gain can occur with all of these drugs and considerable variability exists among patients receiving the same drug regarding the risk of metabolic effects. Anti-psychotic agents not only increase the risk of metabolic disorder, they also increase the risk of CVA, akathisia, and movement disorders including EPS or tardive dyskinesia (more common with first generation antipsychotics) and more. Elderly- discussed risks, cognition, sedation, falls, metabolic, movement and atypical antipsychotics carry a black-box warning for increased risk of and cerebrovascular events in dementia. Medication Management and Follow-Up - Plan: - Schedule follow-up appointments every 1-3 months to monitor the patient's response to the medication regimen. - Reinforce the importance of avoiding recreational drug use due to potential neurotoxicity and interactions with prescribed medications. 10/26/2024 Generalized anxiety disorder (ICD-10 - F41.1) patient recommended to see director process improvement and refused- reported stopped all heart rx and cxl last appt patient recommended to see PCP for medical and labs 1. Schizoaffective Bipolar- AIMS= 0 12/28/23- missing many teeth and poor oral health no dentures Wellbutrin XL 150 DAILY, Invega 3 mg monitor mood, psychosis, depression, agitation, paranoia, monitor metabolic - labs recently PCP - PAXIL 40 mg daily,- patient educated on Paxil and over age [age] years old and risk cardio EKG discuss and educated to schedule to see PCP 07/13/24 and strongly recommended to see director process improvement - reported weakness 2. Anxiety Clonazpeam 0.5 mg BID, Vistaril 25 mg BID 3. Hypersomnia- SLEEP hygeine 4.PTSD- therapy n/c [facility]- hx 5.Tobacco use discuss TMS for smoking cessation and pamplet given - will consider Do not smoke. Nicotine and other chemicals in cigarettes and cigars can cause lung damage. Ask your healthcare provider for information if you currently smoke and need help to quit. E-cigarettes or smokeless tobacco still contain nicotine. Talk to your healthcare provider before you use these products. education on decrease to stopping nicotine products and stop smoking hotline given 6. Memory loss SLUMS= 18 10/26/24 Discuss and educated about SLUMS Discuss and educated on medications options- patient will wait at this time and see neurologist discuss seeing neurology- patient has provider and recommend MRI http_s://www.[facility] .org/About-Mental -Illness/Treatmen ts/Mental-Health- Medications http_s://www.[facility] .org/About-Mental -Illness/Mental-H ealth-Conditions http_s://psychcen tral.com/depressi on/the-cognitive- hvrznbvd-hs-zlywv ssion#treatments http__s://www.[facility].nih.gov/health/ topics/mental-hea [facility]-medications http__s://www.nam i.org/About-Menta l-Illness/Treatme nts/Mental-Health -Medications educated on all medications, benefits, side effects and risk, and educated on depression, anxiety, and ADHD, mood d/o and educated on compliance of medications, metabolic and movement d/o education appointment's, continue therapy discussion with patient about course of treatment and patient instructions. education on serotonin syndrome Discussed and educated pt regarding benzodiazepines are generally not intended for prolonged use and that use can cause tolerance, dependence, depression, and associated memory issues including dementias (this list is not exhaustive). Benzodiazepine use is generally not recommended concurrently with pain medications and/or other controlled substances educated on all medications, benefits, side effects and risk, and educated on depression, anxiety, and ADHD, mood d/o and educated on compliance of medications, metabolic and movement d/o education appointment is, continue therapy discussion with patient about course of treatment and patient instructions. education on serotonin syndrome SSRI/SNRI side effects discussed including but not limited to, gastric upset, nausea, vomiting, diarrhea and/or constipation, weight changes, sexual side effects including loss of libido, increased suicidal thoughts/behavior s in children and young adults, and serotonin syndrome. Patient educated on all medications including potential benefits, side effects, risks. Educated on proper dosing schedule and importance of compliance Second generation antipsychotics (SGAs) have metabolic syndrome issues with weight gain, increase in prolactin, increased waist circumference, increased lipids, and increased glucose. Thus routine monitoring of weight, metabolic labs, etc. is indicated. A general rank ordering of antipsychotics that have the greatest to the least risk of metabolic effects is olanzapine, quetiapine, risperidone, ziprasidone, and aripiprazole. However, weight gain can occur with all of these drugs and considerable variability exists among patients receiving the same drug regarding the risk of metabolic effects. Anti-psychotic agents not only increase the risk of metabolic disorder, they also increase the risk of CVA, akathisia, and movement disorders including EPS or tardive dyskinesia (more common with first generation antipsychotics) and more. Elderly- discussed risks, cognition, sedation, falls, metabolic, movement and atypical antipsychotics carry a black-box warning for increased risk of and cerebrovascular events in dementia. Medication Management and Follow-Up - Plan: - Schedule follow-up appointments every 1-3 months to monitor the patient's response to the medication regimen. - Reinforce the importance of avoiding recreational drug use due to potential neurotoxicity and interactions with prescribed medications. 09/06/2024 Schizoaffective disorder, bipolar type (ICD-10 - F25.0) 09/06/2024 Generalized anxiety disorder (ICD-10 - F41.1) 10/26/2024 Primary hypersomnia (ICD-10 - F51.11) patient recommended to see director process improvement and refused- reported stopped all heart rx and cxl last appt patient recommended to see PCP for medical and labs 1. Schizoaffective Bipolar- AIMS= 0 12/28/23- missing many teeth and poor oral health no dentures Wellbutrin XL 150 DAILY, Invega 3 mg monitor mood, psychosis, depression, agitation, paranoia, monitor metabolic - labs recently PCP - PAXIL 40 mg daily,- patient educated on Paxil and over age [age] years old and risk cardio EKG discuss and educated to schedule to see PCP 07/13/24 and strongly recommended to see director process improvement - reported weakness 2. Anxiety Clonazpeam 0.5 mg BID, Vistaril 25 mg BID 3. Hypersomnia- SLEEP hygeine 4.PTSD- therapy n/c [facility]- hx 5.Tobacco use discuss TMS for smoking cessation and pamplet given - will consider Do not smoke. Nicotine and other chemicals in cigarettes and cigars can cause lung damage. Ask your healthcare provider for information if you currently smoke and need help to quit. E-cigarettes or smokeless tobacco still contain nicotine. Talk to your healthcare provider before you use these products. education on decrease to stopping nicotine products and stop smoking hotline given 6. Memory loss SLUMS= 18 10/26/24 Discuss and educated about SLUMS Discuss and educated on medications options- patient will wait at this time and see neurologist discuss seeing neurology- patient has provider and recommend MRI http_s://www.[facility] .org/About-Mental -Illness/Treatmen ts/Mental-Health- Medications http_s://www.[facility] .org/About-Mental -Illness/Mental-H ealth-Conditions http_s://psychcen tral.com/depressi on/the-cognitive- qhvinluh-ql-jxgca ssion#treatments http__s://www.[facility].nih.gov/health/ topics/mental-hea [facility]-medications http__s://www.nam i.org/About-Menta l-Illness/Treatme nts/Mental-Health -Medications educated on all medications, benefits, side effects and risk, and educated on depression, anxiety, and ADHD, mood d/o and educated on compliance of medications, metabolic and movement d/o education appointment's, continue therapy discussion with patient about course of treatment and patient instructions. education on serotonin syndrome Discussed and educated pt regarding benzodiazepines are generally not intended for prolonged use and that use can cause tolerance, dependence, depression, and associated memory issues including dementias (this list is not exhaustive). Benzodiazepine use is generally not recommended concurrently with pain medications and/or other controlled substances educated on all medications, benefits, side effects and risk, and educated on depression, anxiety, and ADHD, mood d/o and educated on compliance of medications, metabolic and movement d/o education appointment is, continue therapy discussion with patient about course of treatment and patient instructions. education on serotonin syndrome SSRI/SNRI side effects discussed including but not limited to, gastric upset, nausea, vomiting, diarrhea and/or constipation, weight changes, sexual side effects including loss of libido, increased suicidal thoughts/behavior s in children and young adults, and serotonin syndrome. Patient educated on all medications including potential benefits, side effects, risks. Educated on proper dosing schedule and importance of compliance Second generation antipsychotics (SGAs) have metabolic syndrome issues with weight gain, increase in prolactin, increased waist circumference, increased lipids, and increased glucose. Thus routine monitoring of weight, metabolic labs, etc. is indicated. A general rank ordering of antipsychotics that have the greatest to the least risk of metabolic effects is olanzapine, quetiapine, risperidone, ziprasidone, and aripiprazole. However, weight gain can occur with all of these drugs and considerable variability exists among patients receiving the same drug regarding the risk of metabolic effects. Anti-psychotic agents not only increase the risk of metabolic disorder, they also increase the risk of CVA, akathisia, and movement disorders including EPS or tardive dyskinesia (more common with first generation antipsychotics) and more. Elderly- discussed risks, cognition, sedation, falls, metabolic, movement and atypical antipsychotics carry a black-box warning for increased risk of and cerebrovascular events in dementia. Medication Management and Follow-Up - Plan: - Schedule follow-up appointments every 1-3 months to monitor the patient's response to the medication regimen. - Reinforce the importance of avoiding recreational drug use due to potential neurotoxicity and interactions with prescribed medications. 07/11/2024 Generalized anxiety disorder (ICD-10 - F41.1) patient recommended to see director process improvement and refused- reported stopped all heart rx patient recommended to see PCP and scheduled 05/16 Schizoaffective Bipolar- AIMS= 0 12/28/23- missing many teeth and poor oral health no dentures Wellbutrin XL 150 DAILY, Presently on Invega 6 mg daily, discuss and education on GDR to Invega 3 mg monitor mood, psychosis, depression, agitation, paranoia, monitor metabolic - labs recently PCP - schedule 07/13/24 to discuss results PAXIL 40 mg daily,- patient educated on Paxil and over age [age] years old and risk cardio EKG discuss and educated to schedule to see PCP 07/13/24 and strongly recommended to see director process improvement - reported weakness Anxiety Clonazpeam 0.5 mg BID, Vistaril 25 mg BID Hypersomnia- SLEEP hygeine PTSD- therapy n/c [facility]- hx Tobacco use discuss TMS for smoking cessation and pamplet given - will consider Do not smoke. Nicotine and other chemicals in cigarettes and cigars can cause lung damage. Ask your healthcare provider for information if you currently smoke and need help to quit. E-cigarettes or smokeless tobacco still contain nicotine. Talk to your healthcare provider before you use these products. education on decrease to stopping nicotine products and stop smoking hotline given http_s://www.[facility] .org/About-Mental -Illness/Treatmen ts/Mental-Health- Medications http_s://www.[facility] .org/About-Mental -Illness/Mental-H ealth-Conditions http_s://psychOkBuy.comn CONWEAVERl.com/depressi on/the-cognitive- pscwlcan-qo-pfano ssion#treatments http__s://www.nim h.nih.gov/health/ topics/mental-hea lth-medications http__s://www.nam i.org/About-Menta l-Illness/Treatme nts/Mental-Health -Medications educated on all medications, benefits, side effects and risk, and educated on depression, anxiety, and ADHD, mood d/o and educated on compliance of medications, metabolic and movement d/o education appointment's, continue therapy discussion with patient about course of treatment and patient instructions. education on serotonin syndrome Discussed and educated pt regarding benzodiazepines are generally not intended for prolonged use and that use can cause tolerance, dependence, depression, and associated memory issues including dementias (this list is not exhaustive). Benzodiazepine use is generally not recommended concurrently with pain medications and/or other controlled substances educated on all medications, benefits, side effects and risk, and educated on depression, anxiety, and ADHD, mood d/o and educated on compliance of medications, metabolic and movement d/o education appointment is, continue therapy discussion with patient about course of treatment and patient instructions. education on serotonin syndrome SSRI/SNRI side effects discussed including but not limited to, gastric upset, nausea, vomiting, diarrhea and/or constipation, weight changes, sexual side effects including loss of libido, increased suicidal thoughts/behavior s in children and young adults, and serotonin syndrome. Patient educated on all medications including potential benefits, side effects, risks. Educated on proper dosing schedule and importance of compliance Second generation antipsychotics (SGAs) have metabolic syndrome issues with weight gain, increase in prolactin, increased waist circumference, increased lipids, and increased glucose. Thus routine monitoring of weight, metabolic labs, etc. is indicated. A general rank ordering of antipsychotics that have the greatest to the least risk of metabolic effects is olanzapine, quetiapine, risperidone, ziprasidone, and aripiprazole. However, weight gain can occur with all of these drugs and considerable variability exists among patients receiving the same drug regarding the risk of metabolic effects. Anti-psychotic agents not only increase the risk of metabolic disorder, they also increase the risk of CVA, akathisia, and movement disorders including EPS or tardive dyskinesia (more common with first generation antipsychotics) and more. Elderly- discussed risks, cognition, sedation, falls, metabolic, movement and atypical antipsychotics carry a black-box warning for increased risk of and cerebrovascular events in dementia. Medication Management and Follow-Up - Plan: - Schedule follow-up appointments every 1-3 months to monitor the patient's response to the medication regimen. - Reinforce the importance of avoiding recreational drug use due to potential neurotoxicity and interactions with prescribed medications. 04/18/2024 Generalized anxiety disorder (ICD-10 - F41.1) patient recommended to see director process improvement and refused- reported stopped all heart rx patient recommended to see PCP and scheduled 05/16 Schizoaffective Bipolar- AIMS= 0 12/28/23- missing many teeth and poor oral health no dentures Wellbutrin XL 150 DAILY, Invega 6 mg daily, PAXIL 40 mg daily,- patient educated on Paxil and over age [age] years old and risk cardio EKG Anxiety Clonazpeam 0.5 mg BID, Vistaril 25 mg BID Hypersomnia- SLEEP hygeine PTSD- therapy n/c BUZZ VA- hx Tobacco use discuss TMS for smoking cessation and pamplet given - will consider Do not smoke. Nicotine and other chemicals in cigarettes and cigars can cause lung damage. Ask your healthcare provider for information if you currently smoke and need help to quit. E-cigarettes or smokeless tobacco still contain nicotine. Talk to your healthcare provider before you use these products. education on decrease to stopping nicotine products and stop smoking hotline given http_s://www.[facility] .org/About-Mental -Illness/Treatmen ts/Mental-Health- Medications http_s://www.[facility] .org/About-Mental -Illness/Mental-H ealth-Conditions http_s://[employer]/depressi on/the-cognitive- sybzbxzl-eq-oggcn ssion#treatments http__s://www.nim h.nih.gov/health/ topics/mental-hea lth-medications http__s://www.nam i.org/About-Menta l-Illness/Treatme nts/Mental-Health -Medications educated on all medications, benefits, side effects and risk, and educated on depression, anxiety, and ADHD, mood d/o and educated on compliance of medications, metabolic and movement d/o education appointment's, continue therapy discussion with patient about course of treatment and patient instructions. education on serotonin syndrome Discussed and educated pt regarding benzodiazepines are generally not intended for prolonged use and that use can cause tolerance, dependence, depression, and associated memory issues including dementias (this list is not exhaustive). Benzodiazepine use is generally not recommended concurrently with pain medications and/or other controlled substances educated on all medications, benefits, side effects and risk, and educated on depression, anxiety, and ADHD, mood d/o and educated on compliance of medications, metabolic and movement d/o education appointment is, continue therapy discussion with patient about course of treatment and patient instructions. education on serotonin syndrome SSRI/SNRI side effects discussed including but not limited to, gastric upset, nausea, vomiting, diarrhea and/or constipation, weight changes, sexual side effects including loss of libido, increased suicidal thoughts/behavior s in children and young adults, and serotonin syndrome. Patient educated on all medications including potential benefits, side effects, risks. Educated on proper dosing schedule and importance of compliance Second generation antipsychotics (SGAs) have metabolic syndrome issues with weight gain, increase in prolactin, increased waist circumference, increased lipids, and increased glucose. Thus routine monitoring of weight, metabolic labs, etc. is indicated. A general rank ordering of antipsychotics that have the greatest to the least risk of metabolic effects is olanzapine, quetiapine, risperidone, ziprasidone, and aripiprazole. However, weight gain can occur with all of these drugs and considerable variability exists among patients receiving the same drug regarding the risk of metabolic effects. Anti-psychotic agents not only increase the risk of metabolic disorder, they also increase the risk of CVA, akathisia, and movement disorders including EPS or tardive dyskinesia (more common with first generation antipsychotics) and more. Elderly- discussed risks, cognition, sedation, falls, metabolic, movement and atypical antipsychotics carry a black-box warning for increased risk of and cerebrovascular events in dementia. Medication Management and Follow-Up - Plan: - Schedule follow-up appointments every 1-3 months to monitor the patient's response to the medication regimen. - Reinforce the importance of avoiding recreational drug use due to potential neurotoxicity and interactions with prescribed medications. 12/28/2023 Primary hypersomnia (ICD-10 - F51.11) Presently taking Wellbutrin XL 150 DAILY, Invega 6 mg daily, PAXIL 40 mg daily, Clonazpeam 0.5 mg BID, Vistaril 25 mg BID Schizoaffective Bipolar- AIMS= 0 12/28/23- missing many teeth and poor oral health no dentures Wellbutrin XL 150 DAILY, Invega 6 mg daily, PAXIL 40 mg daily, Anxiety Clonazpeam 0.5 mg BID, Vistaril 25 mg BID Hypersomnia- SLEEP hygeine PTSD- therapy n/c BUZZ VA- hx Tobacco use Do not smoke. Nicotine and other chemicals in cigarettes and cigars can cause lung damage. Ask your healthcare provider for information if you currently smoke and need help to quit. E-cigarettes or smokeless tobacco still contain nicotine. Talk to your healthcare provider before you use these products. education on decrease to stopping nicotine products and stop smoking hotline given http_s://www.[facility] .org/About-Mental -Illness/Treatmen ts/Mental-Health- Medications http_s://www.[facility] .org/About-Mental -Illness/Mental-H ealth-Conditions http_s://[employer]/depressi on/the-cognitive- yycbrtcd-vj-hzejl ssion#treatments http__s://www.[facility].nih.gov/health/ topics/mental-hea lth-medications http__s://www.nam i.org/About-Menta l-Illness/Treatme nts/Mental-Health -Medications educated on all medications, benefits, side effects and risk, and educated on depression, anxiety, and ADHD, mood d/o and educated on compliance of medications, metabolic and movement d/o education appointment's, continue therapy discussion with patient about course of treatment and patient instructions. education on serotonin syndrome Discussed and educated pt regarding benzodiazepines are generally not intended for prolonged use and that use can cause tolerance, dependence, depression, and associated memory issues including dementias (this list is not exhaustive). Benzodiazepine use is generally not recommended concurrently with pain medications and/or other controlled substances educated on all medications, benefits, side effects and risk, and educated on depression, anxiety, and ADHD, mood d/o and educated on compliance of medications, metabolic and movement d/o education appointment is, continue therapy discussion with patient about course of treatment and patient instructions. education on serotonin syndrome SSRI/SNRI side effects discussed including but not limited to, gastric upset, nausea, vomiting, diarrhea and/or constipation, weight changes, sexual side effects including loss of libido, increased suicidal thoughts/behavior s in children and young adults, and serotonin syndrome. Patient educated on all medications including potential benefits, side effects, risks. Educated on proper dosing schedule and importance of compliance Second generation antipsychotics (SGAs) have metabolic syndrome issues with weight gain, increase in prolactin, increased waist circumference, increased lipids, and increased glucose. Thus routine monitoring of weight, metabolic labs, etc. is indicated. A general rank ordering of antipsychotics that have the greatest to the least risk of metabolic effects is olanzapine, quetiapine, risperidone, ziprasidone, and aripiprazole. However, weight gain can occur with all of these drugs and considerable variability exists among patients receiving the same drug regarding the risk of metabolic effects. Anti-psychotic agents not only increase the risk of metabolic disorder, they also increase the risk of CVA, akathisia, and movement disorders including EPS or tardive dyskinesia (more common with first generation antipsychotics) and more. Elderly- discussed risks, cognition, sedation, falls, metabolic, movement and atypical antipsychotics carry a black-box warning for increased risk of and cerebrovascular events in dementia. Medication Management and Follow-Up - Plan: - Schedule follow-up appointments every 1-3 months to monitor the patient's response to the medication regimen. - Reinforce the importance of avoiding recreational drug use due to potential neurotoxicity and interactions with prescribed medications. 04/18/2024 Primary hypersomnia (ICD-10 - F51.11) patient recommended to see director process improvement and refused- reported stopped all heart rx patient recommended to see PCP and scheduled 05/16 Schizoaffective Bipolar- AIMS= 0 12/28/23- missing many teeth and poor oral health no dentures Wellbutrin XL 150 DAILY, Invega 6 mg daily, PAXIL 40 mg daily,- patient educated on Paxil and over age [age] years old and risk cardio EKG Anxiety Clonazpeam 0.5 mg BID, Vistaril 25 mg BID Hypersomnia- SLEEP hygeine PTSD- therapy n/c BUZZ VA- hx Tobacco use discuss TMS for smoking cessation and pamplet given - will consider Do not smoke. Nicotine and other chemicals in cigarettes and cigars can cause lung damage. Ask your healthcare provider for information if you currently smoke and need help to quit. E-cigarettes or smokeless tobacco still contain nicotine. Talk to your healthcare provider before you use these products. education on decrease to stopping nicotine products and stop smoking hotline given http_s://www.[facility] .org/About-Mental -Illness/Treatmen ts/Mental-Health- Medications http_s://www.[facility] .org/About-Mental -Illness/Mental-H ealth-Conditions http_s://psychcen tral.com/depressi on/the-cognitive- aunszywo-vr-xgcgr ssion#treatments http__s://www.nim .nih.gov/health/ topics/mental-hea [facility]-medications http__s://www.nam i.org/About-Menta l-Illness/Treatme nts/Mental-Health -Medications educated on all medications, benefits, side effects and risk, and educated on depression, anxiety, and ADHD, mood d/o and educated on compliance of medications, metabolic and movement d/o education appointment's, continue therapy discussion with patient about course of treatment and patient instructions. education on serotonin syndrome Discussed and educated pt regarding benzodiazepines are generally not intended for prolonged use and that use can cause tolerance, dependence, depression, and associated memory issues including dementias (this list is not exhaustive). Benzodiazepine use is generally not recommended concurrently with pain medications and/or other controlled substances educated on all medications, benefits, side effects and risk, and educated on depression, anxiety, and ADHD, mood d/o and educated on compliance of medications, metabolic and movement d/o education appointment is, continue therapy discussion with patient about course of treatment and patient instructions. education on serotonin syndrome SSRI/SNRI side effects discussed including but not limited to, gastric upset, nausea, vomiting, diarrhea and/or constipation, weight changes, sexual side effects including loss of libido, increased suicidal thoughts/behavior s in children and young adults, and serotonin syndrome. Patient educated on all medications including potential benefits, side effects, risks. Educated on proper dosing schedule and importance of compliance Second generation antipsychotics (SGAs) have metabolic syndrome issues with weight gain, increase in prolactin, increased waist circumference, increased lipids, and increased glucose. Thus routine monitoring of weight, metabolic labs, etc. is indicated. A general rank ordering of antipsychotics that have the greatest to the least risk of metabolic effects is olanzapine, quetiapine, risperidone, ziprasidone, and aripiprazole. However, weight gain can occur with all of these drugs and considerable variability exists among patients receiving the same drug regarding the risk of metabolic effects. Anti-psychotic agents not only increase the risk of metabolic disorder, they also increase the risk of CVA, akathisia, and movement disorders including EPS or tardive dyskinesia (more common with first generation antipsychotics) and more. Elderly- discussed risks, cognition, sedation, falls, metabolic, movement and atypical antipsychotics carry a black-box warning for increased risk of and cerebrovascular events in dementia. Medication Management and Follow-Up - Plan: - Schedule follow-up appointments every 1-3 months to monitor the patient's response to the medication regimen. - Reinforce the importance of avoiding recreational drug use due to potential neurotoxicity and interactions with prescribed medications. 07/11/2024 Primary hypersomnia (ICD-10 - F51.11) patient recommended to see director process improvement and refused- reported stopped all heart rx patient recommended to see PCP and scheduled 05/16 Schizoaffective Bipolar- AIMS= 0 12/28/23- missing many teeth and poor oral health no dentures Wellbutrin XL 150 DAILY, Presently on Invega 6 mg daily, discuss and education on GDR to Invega 3 mg monitor mood, psychosis, depression, agitation, paranoia, monitor metabolic - labs recently PCP - schedule 07/13/24 to discuss results PAXIL 40 mg daily,- patient educated on Paxil and over age [age] years old and risk cardio EKG discuss and educated to schedule to see PCP 07/13/24 and strongly recommended to see director process improvement - reported weakness Anxiety Clonazpeam 0.5 mg BID, Vistaril 25 mg BID Hypersomnia- SLEEP hygeine PTSD- therapy n/c BUZZ VA- hx Tobacco use discuss TMS for smoking cessation and pamplet given - will consider Do not smoke. Nicotine and other chemicals in cigarettes and cigars can cause lung damage. Ask your healthcare provider for information if you currently smoke and need help to quit. E-cigarettes or smokeless tobacco still contain nicotine. Talk to your healthcare provider before you use these products. education on decrease to stopping nicotine products and stop smoking hotline given http_s://www.[facility] .org/About-Mental -Illness/Treatmen ts/Mental-Health- Medications http_s://www.[facility] .org/About-Mental -Illness/Mental-H ealth-Conditions http_s://psychcen tral.com/depressi on/the-cognitive- qfozwynf-ku-fjvsf ssion#treatments http__s://www.nim .nih.gov/health/ topics/mental-hea lth-medications http__s://www.nam i.org/About-Menta l-Illness/Treatme nts/Mental-Health -Medications educated on all medications, benefits, side effects and risk, and educated on depression, anxiety, and ADHD, mood d/o and educated on compliance of medications, metabolic and movement d/o education appointment's, continue therapy discussion with patient about course of treatment and patient instructions. education on serotonin syndrome Discussed and educated pt regarding benzodiazepines are generally not intended for prolonged use and that use can cause tolerance, dependence, depression, and associated memory issues including dementias (this list is not exhaustive). Benzodiazepine use is generally not recommended concurrently with pain medications and/or other controlled substances educated on all medications, benefits, side effects and risk, and educated on depression, anxiety, and ADHD, mood d/o and educated on compliance of medications, metabolic and movement d/o education appointment is, continue therapy discussion with patient about course of treatment and patient instructions. education on serotonin syndrome SSRI/SNRI side effects discussed including but not limited to, gastric upset, nausea, vomiting, diarrhea and/or constipation, weight changes, sexual side effects including loss of libido, increased suicidal thoughts/behavior s in children and young adults, and serotonin syndrome. Patient educated on all medications including potential benefits, side effects, risks. Educated on proper dosing schedule and importance of compliance Second generation antipsychotics (SGAs) have metabolic syndrome issues with weight gain, increase in prolactin, increased waist circumference, increased lipids, and increased glucose. Thus routine monitoring of weight, metabolic labs, etc. is indicated. A general rank ordering of antipsychotics that have the greatest to the least risk of metabolic effects is olanzapine, quetiapine, risperidone, ziprasidone, and aripiprazole. However, weight gain can occur with all of these drugs and considerable variability exists among patients receiving the same drug regarding the risk of metabolic effects. Anti-psychotic agents not only increase the risk of metabolic disorder, they also increase the risk of CVA, akathisia, and movement disorders including EPS or tardive dyskinesia (more common with first generation antipsychotics) and more. Elderly- discussed risks, cognition, sedation, falls, metabolic, movement and atypical antipsychotics carry a black-box warning for increased risk of and cerebrovascular events in dementia. Medication Management and Follow-Up - Plan: - Schedule follow-up appointments every 1-3 months to monitor the patient's response to the medication regimen. - Reinforce the importance of avoiding recreational drug use due to potential neurotoxicity and interactions with prescribed medications. 10/26/2024 Nicotine dependence, unspecified, uncomplicated (ICD-10 - F17.200) patient recommended to see director process improvement and refused- reported stopped all heart rx and cxl last appt patient recommended to see PCP for medical and labs 1. Schizoaffective Bipolar- AIMS= 0 12/28/23- missing many teeth and poor oral health no dentures Wellbutrin XL 150 DAILY, Invega 3 mg monitor mood, psychosis, depression, agitation, paranoia, monitor metabolic - labs recently PCP - PAXIL 40 mg daily,- patient educated on Paxil and over age [age] years old and risk cardio EKG discuss and educated to schedule to see PCP 07/13/24 and strongly recommended to see director process improvement - reported weakness 2. Anxiety Clonazpeam 0.5 mg BID, Vistaril 25 mg BID 3. Hypersomnia- SLEEP hygeine 4.PTSD- therapy n/c BUZZ VA- hx 5.Tobacco use discuss TMS for smoking cessation and pamplet given - will consider Do not smoke. Nicotine and other chemicals in cigarettes and cigars can cause lung damage. Ask your healthcare provider for information if you currently smoke and need help to quit. E-cigarettes or smokeless tobacco still contain nicotine. Talk to your healthcare provider before you use these products. education on decrease to stopping nicotine products and stop smoking hotline given 6. Memory loss SLUMS= 18 10/26/24 Discuss and educated about SLUMS Discuss and educated on medications options- patient will wait at this time and see neurologist discuss seeing neurology- patient has provider and recommend MRI http_s://www.[facility] .org/About-Mental -Illness/Treatmen ts/Mental-Health- Medications http_s://www.[facility] .org/About-Mental -Illness/Mental-H ealth-Conditions http_s://psychcen tral.com/depressi on/the-cognitive- yttenrvq-rh-foaqe ssion#treatments http__s://www.nim h.nih.gov/health/ topics/mental-hea lth-medications http__s://www.nam i.org/About-Menta l-Illness/Treatme nts/Mental-Health -Medications educated on all medications, benefits, side effects and risk, and educated on depression, anxiety, and ADHD, mood d/o and educated on compliance of medications, metabolic and movement d/o education appointment's, continue therapy discussion with patient about course of treatment and patient instructions. education on serotonin syndrome Discussed and educated pt regarding benzodiazepines are generally not intended for prolonged use and that use can cause tolerance, dependence, depression, and associated memory issues including dementias (this list is not exhaustive). Benzodiazepine use is generally not recommended concurrently with pain medications and/or other controlled substances educated on all medications, benefits, side effects and risk, and educated on depression, anxiety, and ADHD, mood d/o and educated on compliance of medications, metabolic and movement d/o education appointment is, continue therapy discussion with patient about course of treatment and patient instructions. education on serotonin syndrome SSRI/SNRI side effects discussed including but not limited to, gastric upset, nausea, vomiting, diarrhea and/or constipation, weight changes, sexual side effects including loss of libido, increased suicidal thoughts/behavior s in children and young adults, and serotonin syndrome. Patient educated on all medications including potential benefits, side effects, risks. Educated on proper dosing schedule and importance of compliance Second generation antipsychotics (SGAs) have metabolic syndrome issues with weight gain, increase in prolactin, increased waist circumference, increased lipids, and increased glucose. Thus routine monitoring of weight, metabolic labs, etc. is indicated. A general rank ordering of antipsychotics that have the greatest to the least risk of metabolic effects is olanzapine, quetiapine, risperidone, ziprasidone, and aripiprazole. However, weight gain can occur with all of these drugs and considerable variability exists among patients receiving the same drug regarding the risk of metabolic effects. Anti-psychotic agents not only increase the risk of metabolic disorder, they also increase the risk of CVA, akathisia, and movement disorders including EPS or tardive dyskinesia (more common with first generation antipsychotics) and more. Elderly- discussed risks, cognition, sedation, falls, metabolic, movement and atypical antipsychotics carry a black-box warning for increased risk of and cerebrovascular events in dementia. Medication Management and Follow-Up - Plan: - Schedule follow-up appointments every 1-3 months to monitor the patient's response to the medication regimen. - Reinforce the importance of avoiding recreational drug use due to potential neurotoxicity and interactions with prescribed medications. 12/28/2023 Nicotine dependence, unspecified, uncomplicated (ICD-10 - F17.200) Presently taking Wellbutrin XL 150 DAILY, Invega 6 mg daily, PAXIL 40 mg daily, Clonazpeam 0.5 mg BID, Vistaril 25 mg BID Schizoaffective Bipolar- AIMS= 0 12/28/23- missing many teeth and poor oral health no dentures Wellbutrin XL 150 DAILY, Invega 6 mg daily, PAXIL 40 mg daily, Anxiety Clonazpeam 0.5 mg BID, Vistaril 25 mg BID Hypersomnia- SLEEP hygeine PTSD- therapy n/c BUZZ VA- hx Tobacco use Do not smoke. Nicotine and other chemicals in cigarettes and cigars can cause lung damage. Ask your healthcare provider for information if you currently smoke and need help to quit. E-cigarettes or smokeless tobacco still contain nicotine. Talk to your healthcare provider before you use these products. education on decrease to stopping nicotine products and stop smoking hotline given http_s://www.[facility] .org/About-Mental -Illness/Treatmen ts/Mental-Health- Medications http_s://www.[facility] .org/About-Mental -Illness/Mental-H ealth-Conditions http_s://[employer]/depressi on/the-cognitive- djoyxoat-bf-nubvp ssion#treatments http__s://www.[facility].nih.gov/health/ topics/mental-hea lth-medications http__s://www.nam i.org/About-Menta l-Illness/Treatme nts/Mental-Health -Medications educated on all medications, benefits, side effects and risk, and educated on depression, anxiety, and ADHD, mood d/o and educated on compliance of medications, metabolic and movement d/o education appointment's, continue therapy discussion with patient about course of treatment and patient instructions. education on serotonin syndrome Discussed and educated pt regarding benzodiazepines are generally not intended for prolonged use and that use can cause tolerance, dependence, depression, and associated memory issues including dementias (this list is not exhaustive). Benzodiazepine use is generally not recommended concurrently with pain medications and/or other controlled substances educated on all medications, benefits, side effects and risk, and educated on depression, anxiety, and ADHD, mood d/o and educated on compliance of medications, metabolic and movement d/o education appointment is, continue therapy discussion with patient about course of treatment and patient instructions. education on serotonin syndrome SSRI/SNRI side effects discussed including but not limited to, gastric upset, nausea, vomiting, diarrhea and/or constipation, weight changes, sexual side effects including loss of libido, increased suicidal thoughts/behavior s in children and young adults, and serotonin syndrome. Patient educated on all medications including potential benefits, side effects, risks. Educated on proper dosing schedule and importance of compliance Second generation antipsychotics (SGAs) have metabolic syndrome issues with weight gain, increase in prolactin, increased waist circumference, increased lipids, and increased glucose. Thus routine monitoring of weight, metabolic labs, etc. is indicated. A general rank ordering of antipsychotics that have the greatest to the least risk of metabolic effects is olanzapine, quetiapine, risperidone, ziprasidone, and aripiprazole. However, weight gain can occur with all of these drugs and considerable variability exists among patients receiving the same drug regarding the risk of metabolic effects. Anti-psychotic agents not only increase the risk of metabolic disorder, they also increase the risk of CVA, akathisia, and movement disorders including EPS or tardive dyskinesia (more common with first generation antipsychotics) and more. Elderly- discussed risks, cognition, sedation, falls, metabolic, movement and atypical antipsychotics carry a black-box warning for increased risk of and cerebrovascular events in dementia. Medication Management and Follow-Up - Plan: - Schedule follow-up appointments every 1-3 months to monitor the patient's response to the medication regimen. - Reinforce the importance of avoiding recreational drug use due to potential neurotoxicity and interactions with prescribed medications. 10/26/2024 Post-traumatic stress disorder, chronic (ICD-10 - F43.12) patient recommended to see director process improvement and refused- reported stopped all heart rx and cxl last appt patient recommended to see PCP for medical and labs 1. Schizoaffective Bipolar- AIMS= 0 12/28/23- missing many teeth and poor oral health no dentures Wellbutrin XL 150 DAILY, Invega 3 mg monitor mood, psychosis, depression, agitation, paranoia, monitor metabolic - labs recently PCP - PAXIL 40 mg daily,- patient educated on Paxil and over age [age] years old and risk cardio EKG discuss and educated to schedule to see PCP 07/13/24 and strongly recommended to see director process improvement - reported weakness 2. Anxiety Clonazpeam 0.5 mg BID, Vistaril 25 mg BID 3. Hypersomnia- SLEEP hygeine 4.PTSD- therapy n/c BUZZ VA- hx 5.Tobacco use discuss TMS for smoking cessation and pamplet given - will consider Do not smoke. Nicotine and other chemicals in cigarettes and cigars can cause lung damage. Ask your healthcare provider for information if you currently smoke and need help to quit. E-cigarettes or smokeless tobacco still contain nicotine. Talk to your healthcare provider before you use these products. education on decrease to stopping nicotine products and stop smoking hotline given 6. Memory loss SLUMS= 18 10/26/24 Discuss and educated about SLUMS Discuss and educated on medications options- patient will wait at this time and see neurologist discuss seeing neurology- patient has provider and recommend MRI http_s://www.[facility] .org/About-Mental -Illness/Treatmen ts/Mental-Health- Medications http_s://www.[facility] .org/About-Mental -Illness/Mental-H ealth-Conditions http_s://psychcen [employer].com/depressi on/the-cognitive- dnjxacmh-te-asoyb ssion#treatments http__s://www.nim h.nih.gov/health/ topics/mental-hea lth-medications http__s://www.nam i.org/About-Menta l-Illness/Treatme nts/Mental-Health -Medications educated on all medications, benefits, side effects and risk, and educated on depression, anxiety, and ADHD, mood d/o and educated on compliance of medications, metabolic and movement d/o education appointment's, continue therapy discussion with patient about course of treatment and patient instructions. education on serotonin syndrome Discussed and educated pt regarding benzodiazepines are generally not intended for prolonged use and that use can cause tolerance, dependence, depression, and associated memory issues including dementias (this list is not exhaustive). Benzodiazepine use is generally not recommended concurrently with pain medications and/or other controlled substances educated on all medications, benefits, side effects and risk, and educated on depression, anxiety, and ADHD, mood d/o and educated on compliance of medications, metabolic and movement d/o education appointment is, continue therapy discussion with patient about course of treatment and patient instructions. education on serotonin syndrome SSRI/SNRI side effects discussed including but not limited to, gastric upset, nausea, vomiting, diarrhea and/or constipation, weight changes, sexual side effects including loss of libido, increased suicidal thoughts/behavior s in children and young adults, and serotonin syndrome. Patient educated on all medications including potential benefits, side effects, risks. Educated on proper dosing schedule and importance of compliance Second generation antipsychotics (SGAs) have metabolic syndrome issues with weight gain, increase in prolactin, increased waist circumference, increased lipids, and increased glucose. Thus routine monitoring of weight, metabolic labs, etc. is indicated. A general rank ordering of antipsychotics that have the greatest to the least risk of metabolic effects is olanzapine, quetiapine, risperidone, ziprasidone, and aripiprazole. However, weight gain can occur with all of these drugs and considerable variability exists among patients receiving the same drug regarding the risk of metabolic effects. Anti-psychotic agents not only increase the risk of metabolic disorder, they also increase the risk of CVA, akathisia, and movement disorders including EPS or tardive dyskinesia (more common with first generation antipsychotics) and more. Elderly- discussed risks, cognition, sedation, falls, metabolic, movement and atypical antipsychotics carry a black-box warning for increased risk of and cerebrovascular events in dementia. Medication Management and Follow-Up - Plan: - Schedule follow-up appointments every 1-3 months to monitor the patient's response to the medication regimen. - Reinforce the importance of avoiding recreational drug use due to potential neurotoxicity and interactions with prescribed medications. 04/18/2024 Nicotine dependence, unspecified, uncomplicated (ICD-10 - F17.200) patient recommended to see director process improvement and refused- reported stopped all heart rx patient recommended to see PCP and scheduled 05/16 Schizoaffective Bipolar- AIMS= 0 12/28/23- missing many teeth and poor oral health no dentures Wellbutrin XL 150 DAILY, Invega 6 mg daily, PAXIL 40 mg daily,- patient educated on Paxil and over age [age] years old and risk cardio EKG Anxiety Clonazpeam 0.5 mg BID, Vistaril 25 mg BID Hypersomnia- SLEEP hygeine PTSD- therapy n/c BUZZ VA- hx Tobacco use discuss TMS for smoking cessation and pamplet given - will consider Do not smoke. Nicotine and other chemicals in cigarettes and cigars can cause lung damage. Ask your healthcare provider for information if you currently smoke and need help to quit. E-cigarettes or smokeless tobacco still contain nicotine. Talk to your healthcare provider before you use these products. education on decrease to stopping nicotine products and stop smoking hotline given http_s://www.[facility] .org/About-Mental -Illness/Treatmen ts/Mental-Health- Medications http_s://www.[facility] .org/About-Mental -Illness/Mental-H ealth-Conditions http_s://psychcen [employer].com/depressi on/the-cognitive- tgwxmnpv-ue-uufwi ssion#treatments http__s://www.[facility].nih.gov/health/ topics/mental-hea lth-medications http__s://www.nam i.org/About-Menta l-Illness/Treatme nts/Mental-Health -Medications educated on all medications, benefits, side effects and risk, and educated on depression, anxiety, and ADHD, mood d/o and educated on compliance of medications, metabolic and movement d/o education appointment's, continue therapy discussion with patient about course of treatment and patient instructions. education on serotonin syndrome Discussed and educated pt regarding benzodiazepines are generally not intended for prolonged use and that use can cause tolerance, dependence, depression, and associated memory issues including dementias (this list is not exhaustive). Benzodiazepine use is generally not recommended concurrently with pain medications and/or other controlled substances educated on all medications, benefits, side effects and risk, and educated on depression, anxiety, and ADHD, mood d/o and educated on compliance of medications, metabolic and movement d/o education appointment is, continue therapy discussion with patient about course of treatment and patient instructions. education on serotonin syndrome SSRI/SNRI side effects discussed including but not limited to, gastric upset, nausea, vomiting, diarrhea and/or constipation, weight changes, sexual side effects including loss of libido, increased suicidal thoughts/behavior s in children and young adults, and serotonin syndrome. Patient educated on all medications including potential benefits, side effects, risks. Educated on proper dosing schedule and importance of compliance Second generation antipsychotics (SGAs) have metabolic syndrome issues with weight gain, increase in prolactin, increased waist circumference, increased lipids, and increased glucose. Thus routine monitoring of weight, metabolic labs, etc. is indicated. A general rank ordering of antipsychotics that have the greatest to the least risk of metabolic effects is olanzapine, quetiapine, risperidone, ziprasidone, and aripiprazole. However, weight gain can occur with all of these drugs and considerable variability exists among patients receiving the same drug regarding the risk of metabolic effects. Anti-psychotic agents not only increase the risk of metabolic disorder, they also increase the risk of CVA, akathisia, and movement disorders including EPS or tardive dyskinesia (more common with first generation antipsychotics) and more. Elderly- discussed risks, cognition, sedation, falls, metabolic, movement and atypical antipsychotics carry a black-box warning for increased risk of and cerebrovascular events in dementia. Medication Management and Follow-Up - Plan: - Schedule follow-up appointments every 1-3 months to monitor the patient's response to the medication regimen. - Reinforce the importance of avoiding recreational drug use due to potential neurotoxicity and interactions with prescribed medications. 07/11/2024 Nicotine dependence, unspecified, uncomplicated (ICD-10 - F17.200) patient recommended to see director process improvement and refused- reported stopped all heart rx patient recommended to see PCP and scheduled 05/16 Schizoaffective Bipolar- AIMS= 0 12/28/23- missing many teeth and poor oral health no dentures Wellbutrin XL 150 DAILY, Presently on Invega 6 mg daily, discuss and education on GDR to Invega 3 mg monitor mood, psychosis, depression, agitation, paranoia, monitor metabolic - labs recently PCP - schedule 07/13/24 to discuss results PAXIL 40 mg daily,- patient educated on Paxil and over age [age] years old and risk cardio EKG discuss and educated to schedule to see PCP 07/13/24 and strongly recommended to see director process improvement - reported weakness Anxiety Clonazpeam 0.5 mg BID, Vistaril 25 mg BID Hypersomnia- SLEEP hygeine PTSD- therapy n/c BUZZ VA- hx Tobacco use discuss TMS for smoking cessation and pamplet given - will consider Do not smoke. Nicotine and other chemicals in cigarettes and cigars can cause lung damage. Ask your healthcare provider for information if you currently smoke and need help to quit. E-cigarettes or smokeless tobacco still contain nicotine. Talk to your healthcare provider before you use these products. education on decrease to stopping nicotine products and stop smoking hotline given http_s://www.[facility] .org/About-Mental -Illness/Treatmen ts/Mental-Health- Medications http_s://www.[facility] .org/About-Mental -Illness/Mental-H ealth-Conditions http_s://psychcen tral.com/depressi on/the-cognitive- ivnoxtcc-sm-wjfzf ssion#treatments http__s://www.[facility].nih.gov/health/ topics/mental-hea lth-medications http__s://www.nam i.org/About-Menta l-Illness/Treatme nts/Mental-Health -Medications educated on all medications, benefits, side effects and risk, and educated on depression, anxiety, and ADHD, mood d/o and educated on compliance of medications, metabolic and movement d/o education appointment's, continue therapy discussion with patient about course of treatment and patient instructions. education on serotonin syndrome Discussed and educated pt regarding benzodiazepines are generally not intended for prolonged use and that use can cause tolerance, dependence, depression, and associated memory issues including dementias (this list is not exhaustive). Benzodiazepine use is generally not recommended concurrently with pain medications and/or other controlled substances educated on all medications, benefits, side effects and risk, and educated on depression, anxiety, and ADHD, mood d/o and educated on compliance of medications, metabolic and movement d/o education appointment is, continue therapy discussion with patient about course of treatment and patient instructions. education on serotonin syndrome SSRI/SNRI side effects discussed including but not limited to, gastric upset, nausea, vomiting, diarrhea and/or constipation, weight changes, sexual side effects including loss of libido, increased suicidal thoughts/behavior s in children and young adults, and serotonin syndrome. Patient educated on all medications including potential benefits, side effects, risks. Educated on proper dosing schedule and importance of compliance Second generation antipsychotics (SGAs) have metabolic syndrome issues with weight gain, increase in prolactin, increased waist circumference, increased lipids, and increased glucose. Thus routine monitoring of weight, metabolic labs, etc. is indicated. A general rank ordering of antipsychotics that have the greatest to the least risk of metabolic effects is olanzapine, quetiapine, risperidone, ziprasidone, and aripiprazole. However, weight gain can occur with all of these drugs and considerable variability exists among patients receiving the same drug regarding the risk of metabolic effects. Anti-psychotic agents not only increase the risk of metabolic disorder, they also increase the risk of CVA, akathisia, and movement disorders including EPS or tardive dyskinesia (more common with first generation antipsychotics) and more. Elderly- discussed risks, cognition, sedation, falls, metabolic, movement and atypical antipsychotics carry a black-box warning for increased risk of and cerebrovascular events in dementia. Medication Management and Follow-Up - Plan: - Schedule follow-up appointments every 1-3 months to monitor the patient's response to the medication regimen. - Reinforce the importance of avoiding recreational drug use due to potential neurotoxicity and interactions with prescribed medications. 12/28/2023 Post-traumatic stress disorder, chronic (ICD-10 - F43.12) Presently taking Wellbutrin XL 150 DAILY, Invega 6 mg daily, PAXIL 40 mg daily, Clonazpeam 0.5 mg BID, Vistaril 25 mg BID Schizoaffective Bipolar- AIMS= 0 12/28/23- missing many teeth and poor oral health no dentures Wellbutrin XL 150 DAILY, Invega 6 mg daily, PAXIL 40 mg daily, Anxiety Clonazpeam 0.5 mg BID, Vistaril 25 mg BID Hypersomnia- SLEEP hygeine PTSD- therapy n/c BUZZ VA- hx Tobacco use Do not smoke. Nicotine and other chemicals in cigarettes and cigars can cause lung damage. Ask your healthcare provider for information if you currently smoke and need help to quit. E-cigarettes or smokeless tobacco still contain nicotine. Talk to your healthcare provider before you use these products. education on decrease to stopping nicotine products and stop smoking hotline given http_s://www.[facility] .org/About-Mental -Illness/Treatmen ts/Mental-Health- Medications http_s://www.[facility] .org/About-Mental -Illness/Mental-H ealth-Conditions http_s://psychcen tral.com/depressi on/the-cognitive- snykehxb-fu-nlblo ssion#treatments http__s://www.nim h.nih.gov/health/ topics/mental-hea lth-medications http__s://www.nam i.org/About-Menta l-Illness/Treatme nts/Mental-Health -Medications educated on all medications, benefits, side effects and risk, and educated on depression, anxiety, and ADHD, mood d/o and educated on compliance of medications, metabolic and movement d/o education appointment's, continue therapy discussion with patient about course of treatment and patient instructions. education on serotonin syndrome Discussed and educated pt regarding benzodiazepines are generally not intended for prolonged use and that use can cause tolerance, dependence, depression, and associated memory issues including dementias (this list is not exhaustive). Benzodiazepine use is generally not recommended concurrently with pain medications and/or other controlled substances educated on all medications, benefits, side effects and risk, and educated on depression, anxiety, and ADHD, mood d/o and educated on compliance of medications, metabolic and movement d/o education appointment is, continue therapy discussion with patient about course of treatment and patient instructions. education on serotonin syndrome SSRI/SNRI side effects discussed including but not limited to, gastric upset, nausea, vomiting, diarrhea and/or constipation, weight changes, sexual side effects including loss of libido, increased suicidal thoughts/behavior s in children and young adults, and serotonin syndrome. Patient educated on all medications including potential benefits, side effects, risks. Educated on proper dosing schedule and importance of compliance Second generation antipsychotics (SGAs) have metabolic syndrome issues with weight gain, increase in prolactin, increased waist circumference, increased lipids, and increased glucose. Thus routine monitoring of weight, metabolic labs, etc. is indicated. A general rank ordering of antipsychotics that have the greatest to the least risk of metabolic effects is olanzapine, quetiapine, risperidone, ziprasidone, and aripiprazole. However, weight gain can occur with all of these drugs and considerable variability exists among patients receiving the same drug regarding the risk of metabolic effects. Anti-psychotic agents not only increase the risk of metabolic disorder, they also increase the risk of CVA, akathisia, and movement disorders including EPS or tardive dyskinesia (more common with first generation antipsychotics) and more. Elderly- discussed risks, cognition, sedation, falls, metabolic, movement and atypical antipsychotics carry a black-box warning for increased risk of and cerebrovascular events in dementia. Medication Management and Follow-Up - Plan: - Schedule follow-up appointments every 1-3 months to monitor the patient's response to the medication regimen. - Reinforce the importance of avoiding recreational drug use due to potential neurotoxicity and interactions with prescribed medications. 12/28/2023 Other termite helper (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 (ICD-10 - Z79.899) Presently taking Wellbutrin XL 150 DAILY, Invega 6 mg daily, PAXIL 40 mg daily, Clonazpeam 0.5 mg BID, Vistaril 25 mg BID Schizoaffective Bipolar- AIMS= 0 12/28/23- missing many teeth and poor oral health no dentures Wellbutrin XL 150 DAILY, Invega 6 mg daily, PAXIL 40 mg daily, Anxiety Clonazpeam 0.5 mg BID, Vistaril 25 mg BID Hypersomnia- SLEEP hygeine PTSD- therapy n/c BUZZ VA- hx Tobacco use Do not smoke. Nicotine and other chemicals in cigarettes and cigars can cause lung damage. Ask your healthcare provider for information if you currently smoke and need help to quit. E-cigarettes or smokeless tobacco still contain nicotine. Talk to your healthcare provider before you use these products. education on decrease to stopping nicotine products and stop smoking hotline given http_s://www.[facility] .org/About-Mental -Illness/Treatmen ts/Mental-Health- Medications http_s://www.[facility] .org/About-Mental -Illness/Mental-H ealth-Conditions http_s://[employer]/depressi on/the-cognitive- ajhddrky-ch-wqnhb ssion#treatments http__s://www.nim .nih.gov/health/ topics/mental-hea lth-medications http__s://www.nam i.org/About-Menta l-Illness/Treatme nts/Mental-Health -Medications educated on all medications, benefits, side effects and risk, and educated on depression, anxiety, and ADHD, mood d/o and educated on compliance of medications, metabolic and movement d/o education appointment's, continue therapy discussion with patient about course of treatment and patient instructions. education on serotonin syndrome Discussed and educated pt regarding benzodiazepines are generally not intended for prolonged use and that use can cause tolerance, dependence, depression, and associated memory issues including dementias (this list is not exhaustive). Benzodiazepine use is generally not recommended concurrently with pain medications and/or other controlled substances educated on all medications, benefits, side effects and risk, and educated on depression, anxiety, and ADHD, mood d/o and educated on compliance of medications, metabolic and movement d/o education appointment is, continue therapy discussion with patient about course of treatment and patient instructions. education on serotonin syndrome SSRI/SNRI side effects discussed including but not limited to, gastric upset, nausea, vomiting, diarrhea and/or constipation, weight changes, sexual side effects including loss of libido, increased suicidal thoughts/behavior s in children and young adults, and serotonin syndrome. Patient educated on all medications including potential benefits, side effects, risks. Educated on proper dosing schedule and importance of compliance Second generation antipsychotics (SGAs) have metabolic syndrome issues with weight gain, increase in prolactin, increased waist circumference, increased lipids, and increased glucose. Thus routine monitoring of weight, metabolic labs, etc. is indicated. A general rank ordering of antipsychotics that have the greatest to the least risk of metabolic effects is olanzapine, quetiapine, risperidone, ziprasidone, and aripiprazole. However, weight gain can occur with all of these drugs and considerable variability exists among patients receiving the same drug regarding the risk of metabolic effects. Anti-psychotic agents not only increase the risk of metabolic disorder, they also increase the risk of CVA, akathisia, and movement disorders including EPS or tardive dyskinesia (more common with first generation antipsychotics) and more. Elderly- discussed risks, cognition, sedation, falls, metabolic, movement and atypical antipsychotics carry a black-box warning for increased risk of and cerebrovascular events in dementia. Medication Management and Follow-Up - Plan: - Schedule follow-up appointments every 1-3 months to monitor the patient's response to the medication regimen. - Reinforce the importance of avoiding recreational drug use due to potential neurotoxicity and interactions with prescribed medications. 04/18/2024 Post-traumatic stress disorder, chronic (ICD-10 - F43.12) patient recommended to see director process improvement and refused- reported stopped all heart rx patient recommended to see PCP and scheduled 05/16 Schizoaffective Bipolar- AIMS= 0 12/28/23- missing many teeth and poor oral health no dentures Wellbutrin XL 150 DAILY, Invega 6 mg daily, PAXIL 40 mg daily,- patient educated on Paxil and over age [age] years old and risk cardio EKG Anxiety Clonazpeam 0.5 mg BID, Vistaril 25 mg BID Hypersomnia- SLEEP hygeine PTSD- therapy n/c BUZZ VA- hx Tobacco use discuss TMS for smoking cessation and pamplet given - will consider Do not smoke. Nicotine and other chemicals in cigarettes and cigars can cause lung damage. Ask your healthcare provider for information if you currently smoke and need help to quit. E-cigarettes or smokeless tobacco still contain nicotine. Talk to your healthcare provider before you use these products. education on decrease to stopping nicotine products and stop smoking hotline given http_s://www.[facility] .org/About-Mental -Illness/Treatmen ts/Mental-Health- Medications http_s://www.[facility] .org/About-Mental -Illness/Mental-H ealth-Conditions http_s://psychSponsorHubcom/depressi on/the-cognitive- iarqcmrp-jc-eclgx ssion#treatments http__s://www.[facility].nih.gov/health/ topics/mental-hea lth-medications http__s://www.nam i.org/About-Menta l-Illness/Treatme nts/Mental-Health -Medications educated on all medications, benefits, side effects and risk, and educated on depression, anxiety, and ADHD, mood d/o and educated on compliance of medications, metabolic and movement d/o education appointment's, continue therapy discussion with patient about course of treatment and patient instructions. education on serotonin syndrome Discussed and educated pt regarding benzodiazepines are generally not intended for prolonged use and that use can cause tolerance, dependence, depression, and associated memory issues including dementias (this list is not exhaustive). Benzodiazepine use is generally not recommended concurrently with pain medications and/or other controlled substances educated on all medications, benefits, side effects and risk, and educated on depression, anxiety, and ADHD, mood d/o and educated on compliance of medications, metabolic and movement d/o education appointment is, continue therapy discussion with patient about course of treatment and patient instructions. education on serotonin syndrome SSRI/SNRI side effects discussed including but not limited to, gastric upset, nausea, vomiting, diarrhea and/or constipation, weight changes, sexual side effects including loss of libido, increased suicidal thoughts/behavior s in children and young adults, and serotonin syndrome. Patient educated on all medications including potential benefits, side effects, risks. Educated on proper dosing schedule and importance of compliance Second generation antipsychotics (SGAs) have metabolic syndrome issues with weight gain, increase in prolactin, increased waist circumference, increased lipids, and increased glucose. Thus routine monitoring of weight, metabolic labs, etc. is indicated. A general rank ordering of antipsychotics that have the greatest to the least risk of metabolic effects is olanzapine, quetiapine, risperidone, ziprasidone, and aripiprazole. However, weight gain can occur with all of these drugs and considerable variability exists among patients receiving the same drug regarding the risk of metabolic effects. Anti-psychotic agents not only increase the risk of metabolic disorder, they also increase the risk of CVA, akathisia, and movement disorders including EPS or tardive dyskinesia (more common with first generation antipsychotics) and more. Elderly- discussed risks, cognition, sedation, falls, metabolic, movement and atypical antipsychotics carry a black-box warning for increased risk of and cerebrovascular events in dementia. Medication Management and Follow-Up - Plan: - Schedule follow-up appointments every 1-3 months to monitor the patient's response to the medication regimen. - Reinforce the importance of avoiding recreational drug use due to potential neurotoxicity and interactions with prescribed medications. 07/11/2024 Post-traumatic stress disorder, chronic (ICD-10 - F43.12) patient recommended to see director process improvement and refused- reported stopped all heart rx patient recommended to see PCP and scheduled 05/16 Schizoaffective Bipolar- AIMS= 0 12/28/23- missing many teeth and poor oral health no dentures Wellbutrin XL 150 DAILY, Presently on Invega 6 mg daily, discuss and education on GDR to Invega 3 mg monitor mood, psychosis, depression, agitation, paranoia, monitor metabolic - labs recently PCP - schedule 07/13/24 to discuss results PAXIL 40 mg daily,- patient educated on Paxil and over age [age] years old and risk cardio EKG discuss and educated to schedule to see PCP 07/13/24 and strongly recommended to see director process improvement - reported weakness Anxiety Clonazpeam 0.5 mg BID, Vistaril 25 mg BID Hypersomnia- SLEEP hygeine PTSD- therapy n/c BUZZ VA- hx Tobacco use discuss TMS for smoking cessation and pamplet given - will consider Do not smoke. Nicotine and other chemicals in cigarettes and cigars can cause lung damage. Ask your healthcare provider for information if you currently smoke and need help to quit. E-cigarettes or smokeless tobacco still contain nicotine. Talk to your healthcare provider before you use these products. education on decrease to stopping nicotine products and stop smoking hotline given http_s://www.[facility] .org/About-Mental -Illness/Treatmen ts/Mental-Health- Medications http_s://www.[facility] .org/About-Mental -Illness/Mental-H ealth-Conditions http_s://psychSponsorHubcom/depressi on/the-cognitive- ctzswwsz-ie-rejbi ssion#treatments http__s://www.[facility].nih.gov/health/ topics/mental-hea lth-medications http__s://www.nam i.org/About-Menta l-Illness/Treatme nts/Mental-Health -Medications educated on all medications, benefits, side effects and risk, and educated on depression, anxiety, and ADHD, mood d/o and educated on compliance of medications, metabolic and movement d/o education appointment's, continue therapy discussion with patient about course of treatment and patient instructions. education on serotonin syndrome Discussed and educated pt regarding benzodiazepines are generally not intended for prolonged use and that use can cause tolerance, dependence, depression, and associated memory issues including dementias (this list is not exhaustive). Benzodiazepine use is generally not recommended concurrently with pain medications and/or other controlled substances educated on all medications, benefits, side effects and risk, and educated on depression, anxiety, and ADHD, mood d/o and educated on compliance of medications, metabolic and movement d/o education appointment is, continue therapy discussion with patient about course of treatment and patient instructions. education on serotonin syndrome SSRI/SNRI side effects discussed including but not limited to, gastric upset, nausea, vomiting, diarrhea and/or constipation, weight changes, sexual side effects including loss of libido, increased suicidal thoughts/behavior s in children and young adults, and serotonin syndrome. Patient educated on all medications including potential benefits, side effects, risks. Educated on proper dosing schedule and importance of compliance Second generation antipsychotics (SGAs) have metabolic syndrome issues with weight gain, increase in prolactin, increased waist circumference, increased lipids, and increased glucose. Thus routine monitoring of weight, metabolic labs, etc. is indicated. A general rank ordering of antipsychotics that have the greatest to the least risk of metabolic effects is olanzapine, quetiapine, risperidone, ziprasidone, and aripiprazole. However, weight gain can occur with all of these drugs and considerable variability exists among patients receiving the same drug regarding the risk of metabolic effects. Anti-psychotic agents not only increase the risk of metabolic disorder, they also increase the risk of CVA, akathisia, and movement disorders including EPS or tardive dyskinesia (more common with first generation antipsychotics) and more. Elderly- discussed risks, cognition, sedation, falls, metabolic, movement and atypical antipsychotics carry a black-box warning for increased risk of and cerebrovascular events in dementia. Medication Management and Follow-Up - Plan: - Schedule follow-up appointments every 1-3 months to monitor the patient's response to the medication regimen. - Reinforce the importance of avoiding recreational drug use due to potential neurotoxicity and interactions with prescribed medications. 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 Schizoaffective Bipolar- AIMS= 0 12/28/23- missing many teeth and poor oral health no dentures Wellbutrin XL 150 DAILY, Invega 3 mg monitor mood, psychosis, depression, agitation, paranoia, monitor metabolic - labs recently PCP - PAXIL 40 mg daily,- patient educated on Paxil and over age [age] years old and risk cardio EKG discuss and educated to schedule to see PCP 07/13/24 and strongly recommended to see director process improvement - reported weakness 2. Anxiety Clonazpeam 0.5 mg BID, Vistaril 25 mg BID 3. Hypersomnia- SLEEP hygeine 4.PTSD- therapy n/c BUZZ VA- hx 5.Tobacco use discuss TMS for smoking cessation and pamplet given - will consider Do not smoke. Nicotine and other chemicals in cigarettes and cigars can cause lung damage. Ask your healthcare provider for information if you currently smoke and need help to quit. E-cigarettes or smokeless tobacco still contain nicotine. Talk to your healthcare provider before you use these products. education on decrease to stopping nicotine products and stop smoking hotline given 6. Memory loss SLUMS= 18 10/26/24 Discuss and educated about SLUMS Discuss and educated on medications options- patient will wait at this time and see neurologist discuss seeing neurology- patient has provider and recommend MRI http_s://www.[facility] .org/About-Mental -Illness/Treatmen ts/Mental-Health- Medications http_s://www.[facility] .org/About-Mental -Illness/Mental-H ealth-Conditions http_s://psychcen tral.com/depressi on/the-cognitive- qdsenhiu-ba-rzkwv ssion#treatments http__s://www.nim .nih.gov/health/ topics/mental-hea [facility]-medications http__s://www.nam i.org/About-Menta l-Illness/Treatme nts/Mental-Health -Medications educated on all medications, benefits, side effects and risk, and educated on depression, anxiety, and ADHD, mood d/o and educated on compliance of medications, metabolic and movement d/o education appointment's, continue therapy discussion with patient about course of treatment and patient instructions. education on serotonin syndrome Discussed and educated pt regarding benzodiazepines are generally not intended for prolonged use and that use can cause tolerance, dependence, depression, and associated memory issues including dementias (this list is not exhaustive). Benzodiazepine use is generally not recommended concurrently with pain medications and/or other controlled substances educated on all medications, benefits, side effects and risk, and educated on depression, anxiety, and ADHD, mood d/o and educated on compliance of medications, metabolic and movement d/o education appointment is, continue therapy discussion with patient about course of treatment and patient instructions. education on serotonin syndrome SSRI/SNRI side effects discussed including but not limited to, gastric upset, nausea, vomiting, diarrhea and/or constipation, weight changes, sexual side effects including loss of libido, increased suicidal thoughts/behavior s in children and young adults, and serotonin syndrome. Patient educated on all medications including potential benefits, side effects, risks. Educated on proper dosing schedule and importance of compliance Second generation antipsychotics (SGAs) have metabolic syndrome issues with weight gain, increase in prolactin, increased waist circumference, increased lipids, and increased glucose. Thus routine monitoring of weight, metabolic labs, etc. is indicated. A general rank ordering of antipsychotics that have the greatest to the least risk of metabolic effects is olanzapine, quetiapine, risperidone, ziprasidone, and aripiprazole. However, weight gain can occur with all of these drugs and considerable variability exists among patients receiving the same drug regarding the risk of metabolic effects. Anti-psychotic agents not only increase the risk of metabolic disorder, they also increase the risk of CVA, akathisia, and movement disorders including EPS or tardive dyskinesia (more common with first generation antipsychotics) and more. Elderly- discussed risks, cognition, sedation, falls, metabolic, movement and atypical antipsychotics carry a black-box warning for increased risk of and cerebrovascular events in dementia. Medication Management and Follow-Up - Plan: - Schedule follow-up appointments every 1-3 months to monitor the patient's response to the medication regimen. - Reinforce the importance of avoiding recreational drug use due to potential neurotoxicity and interactions with prescribed medications. 10/26/2024 Nicotine use (ICD-10 - Z72.0) patient recommended to see director process improvement and refused- reported stopped all heart rx and cxl last appt patient recommended to see PCP for medical and labs 1. Schizoaffective Bipolar- AIMS= 0 12/28/23- missing many teeth and poor oral health no dentures Wellbutrin XL 150 DAILY, Invega 3 mg monitor mood, psychosis, depression, agitation, paranoia, monitor metabolic - labs recently PCP - PAXIL 40 mg daily,- patient educated on Paxil and over age [age] years old and risk cardio EKG discuss and educated to schedule to see PCP 07/13/24 and strongly recommended to see director process improvement - reported weakness 2. Anxiety Clonazpeam 0.5 mg BID, Vistaril 25 mg BID 3. Hypersomnia- SLEEP hygeine 4.PTSD- therapy n/c BUZZ VA- hx 5.Tobacco use discuss TMS for smoking cessation and pamplet given - will consider Do not smoke. Nicotine and other chemicals in cigarettes and cigars can cause lung damage. Ask your healthcare provider for information if you currently smoke and need help to quit. E-cigarettes or smokeless tobacco still contain nicotine. Talk to your healthcare provider before you use these products. education on decrease to stopping nicotine products and stop smoking hotline given 6. Memory loss SLUMS= 18 10/26/24 Discuss and educated about SLUMS Discuss and educated on medications options- patient will wait at this time and see neurologist discuss seeing neurology- patient has provider and recommend MRI http_s://www.[facility] .org/About-Mental -Illness/Treatmen ts/Mental-Health- Medications http_s://www.[facility] .org/About-Mental -Illness/Mental-H ealth-Conditions http_s://psychcen tral.com/depressi on/the-cognitive- qqcguvyo-iv-unyyc ssion#treatments http__s://www.[facility].nih.gov/health/ topics/mental-hea [facility]-medications http__s://www.nam i.org/About-Menta l-Illness/Treatme nts/Mental-Health -Medications educated on all medications, benefits, side effects and risk, and educated on depression, anxiety, and ADHD, mood d/o and educated on compliance of medications, metabolic and movement d/o education appointment's, continue therapy discussion with patient about course of treatment and patient instructions. education on serotonin syndrome Discussed and educated pt regarding benzodiazepines are generally not intended for prolonged use and that use can cause tolerance, dependence, depression, and associated memory issues including dementias (this list is not exhaustive). Benzodiazepine use is generally not recommended concurrently with pain medications and/or other controlled substances educated on all medications, benefits, side effects and risk, and educated on depression, anxiety, and ADHD, mood d/o and educated on compliance of medications, metabolic and movement d/o education appointment is, continue therapy discussion with patient about course of treatment and patient instructions. education on serotonin syndrome SSRI/SNRI side effects discussed including but not limited to, gastric upset, nausea, vomiting, diarrhea and/or constipation, weight changes, sexual side effects including loss of libido, increased suicidal thoughts/behavior s in children and young adults, and serotonin syndrome. Patient educated on all medications including potential benefits, side effects, risks. Educated on proper dosing schedule and importance of compliance Second generation antipsychotics (SGAs) have metabolic syndrome issues with weight gain, increase in prolactin, increased waist circumference, increased lipids, and increased glucose. Thus routine monitoring of weight, metabolic labs, etc. is indicated. A general rank ordering of antipsychotics that have the greatest to the least risk of metabolic effects is olanzapine, quetiapine, risperidone, ziprasidone, and aripiprazole. However, weight gain can occur with all of these drugs and considerable variability exists among patients receiving the same drug regarding the risk of metabolic effects. Anti-psychotic agents not only increase the risk of metabolic disorder, they also increase the risk of CVA, akathisia, and movement disorders including EPS or tardive dyskinesia (more common with first generation antipsychotics) and more. Elderly- discussed risks, cognition, sedation, falls, metabolic, movement and atypical antipsychotics carry a black-box warning for increased risk of and cerebrovascular events in dementia. Medication Management and Follow-Up - Plan: - Schedule follow-up appointments every 1-3 months to monitor the patient's response to the medication regimen. - Reinforce the importance of avoiding recreational drug use due to potential neurotoxicity and interactions with prescribed medications. 07/11/2024 Other retirement (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 (ICD-10 - Z79.899) patient recommended to see director process improvement and refused- reported stopped all heart rx patient recommended to see PCP and scheduled 05/16 Schizoaffective Bipolar- AIMS= 0 12/28/23- missing many teeth and poor oral health no dentures Wellbutrin XL 150 DAILY, Presently on Invega 6 mg daily, discuss and education on GDR to Invega 3 mg monitor mood, psychosis, depression, agitation, paranoia, monitor metabolic - labs recently PCP - schedule 07/13/24 to discuss results PAXIL 40 mg daily,- patient educated on Paxil and over age 6062 years old and risk cardio EKG discuss and educated to schedule to see PCP 07/13/24 and strongly recommended to see director process improvement - reported weakness Anxiety Clonazpeam 0.5 mg BID, Vistaril 25 mg BID Hypersomnia- SLEEP hygeine PTSD- therapy n/c BUZZ VA- hx Tobacco use discuss TMS for smoking cessation and pamplet given - will consider Do not smoke. Nicotine and other chemicals in cigarettes and cigars can cause lung damage. Ask your healthcare provider for information if you currently smoke and need help to quit. E-cigarettes or smokeless tobacco still contain nicotine. Talk to your healthcare provider before you use these products. education on decrease to stopping nicotine products and stop smoking hotline given http_s://www.[facility] .org/About-Mental -Illness/Treatmen ts/Mental-Health- Medications http_s://www.[facility] .org/About-Mental -Illness/Mental-H ealth-Conditions http_s://psychOkBuy.comn CONWEAVERl.com/depressi on/the-cognitive- gqkzsqzt-gd-cwpub ssion#treatments http__s://www.nim h.nih.gov/health/ topics/mental-hea lth-medications http__s://www.nam i.org/About-Menta l-Illness/Treatme nts/Mental-Health -Medications educated on all medications, benefits, side effects and risk, and educated on depression, anxiety, and ADHD, mood d/o and educated on compliance of medications, metabolic and movement d/o education appointment's, continue therapy discussion with patient about course of treatment and patient instructions. education on serotonin syndrome Discussed and educated pt regarding benzodiazepines are generally not intended for prolonged use and that use can cause tolerance, dependence, depression, and associated memory issues including dementias (this list is not exhaustive). Benzodiazepine use is generally not recommended concurrently with pain medications and/or other controlled substances educated on all medications, benefits, side effects and risk, and educated on depression, anxiety, and ADHD, mood d/o and educated on compliance of medications, metabolic and movement d/o education appointment is, continue therapy discussion with patient about course of treatment and patient instructions. education on serotonin syndrome SSRI/SNRI side effects discussed including but not limited to, gastric upset, nausea, vomiting, diarrhea and/or constipation, weight changes, sexual side effects including loss of libido, increased suicidal thoughts/behavior s in children and young adults, and serotonin syndrome. Patient educated on all medications including potential benefits, side effects, risks. Educated on proper dosing schedule and importance of compliance Second generation antipsychotics (SGAs) have metabolic syndrome issues with weight gain, increase in prolactin, increased waist circumference, increased lipids, and increased glucose. Thus routine monitoring of weight, metabolic labs, etc. is indicated. A general rank ordering of antipsychotics that have the greatest to the least risk of metabolic effects is olanzapine, quetiapine, risperidone, ziprasidone, and aripiprazole. However, weight gain can occur with all of these drugs and considerable variability exists among patients receiving the same drug regarding the risk of metabolic effects. Anti-psychotic agents not only increase the risk of metabolic disorder, they also increase the risk of CVA, akathisia, and movement disorders including EPS or tardive dyskinesia (more common with first generation antipsychotics) and more. Elderly- discussed risks, cognition, sedation, falls, metabolic, movement and atypical antipsychotics carry a black-box warning for increased risk of and cerebrovascular events in dementia. Medication Management and Follow-Up - Plan: - Schedule follow-up appointments every 1-3 months to monitor the patient's response to the medication regimen. - Reinforce the importance of avoiding recreational drug use due to potential neurotoxicity and interactions with prescribed medications. 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 Nicotine and other chemicals in cigarettes and cigars can cause lung damage. Ask your healthcare provider for information if you currently smoke and need help to quit. E-cigarettes or smokeless tobacco still contain nicotine. Talk to your healthcare provider before you use these products. education on decrease to stopping nicotine products and stop smoking hotline given http_s://www.[facility] .org/About-Mental -Illness/Treatmen ts/Mental-Health- Medications http_s://www.[facility] .org/About-Mental -Illness/Mental-H ealth-Conditions http_s://[employer]/depressi on/the-cognitive- kjfrrnje-tz-tsrxp ssion#treatments http__s://www.nim h.nih.gov/health/ topics/mental-hea lth-medications http__s://www.nam i.org/About-Menta l-Illness/Treatme nts/Mental-Health -Medications educated on all medications, benefits, side effects and risk, and educated on depression, anxiety, and ADHD, mood d/o and educated on compliance of medications, metabolic and movement d/o education appointment's, continue therapy discussion with patient about course of treatment and patient instructions. education on serotonin syndrome Discussed and educated pt regarding benzodiazepines are generally not intended for prolonged use and that use can cause tolerance, dependence, depression, and associated memory issues including dementias (this list is not exhaustive). Benzodiazepine use is generally not recommended concurrently with pain medications and/or other controlled substances educated on all medications, benefits, side effects and risk, and educated on depression, anxiety, and ADHD, mood d/o and educated on compliance of medications, metabolic and movement d/o education appointment is, continue therapy discussion with patient about course of treatment and patient instructions. education on serotonin syndrome SSRI/SNRI side effects discussed including but not limited to, gastric upset, nausea, vomiting, diarrhea and/or constipation, weight changes, sexual side effects including loss of libido, increased suicidal thoughts/behavior s in children and young adults, and serotonin syndrome. Patient educated on all medications including potential benefits, side effects, risks. Educated on proper dosing schedule and importance of compliance Second generation antipsychotics (SGAs) have metabolic syndrome issues with weight gain, increase in prolactin, increased waist circumference, increased lipids, and increased glucose. Thus routine monitoring of weight, metabolic labs, etc. is indicated. A general rank ordering of antipsychotics that have the greatest to the least risk of metabolic effects is olanzapine, quetiapine, risperidone, ziprasidone, and aripiprazole. However, weight gain can occur with all of these drugs and considerable variability exists among patients receiving the same drug regarding the risk of metabolic effects. Anti-psychotic agents not only increase the risk of metabolic disorder, they also increase the risk of CVA, akathisia, and movement disorders including EPS or tardive dyskinesia (more common with first generation antipsychotics) and more. Elderly- discussed risks, cognition, sedation, falls, metabolic, movement and atypical antipsychotics carry a black-box warning for increased risk of and cerebrovascular events in dementia. Medication Management and Follow-Up - Plan: - Schedule follow-up appointments every 1-3 months to monitor the patient's response to the medication regimen. - Reinforce the importance of avoiding recreational drug use due to potential neurotoxicity and interactions with prescribed medications. 07/11/2024 Nicotine use (ICD-10 - Z72.0) patient recommended to see director process improvement and refused- reported stopped all heart rx patient recommended to see PCP and scheduled 05/16 Schizoaffective Bipolar- AIMS= 0 12/28/23- missing many teeth and poor oral health no dentures Wellbutrin XL 150 DAILY, Presently on Invega 6 mg daily, discuss and education on GDR to Invega 3 mg monitor mood, psychosis, depression, agitation, paranoia, monitor metabolic - labs recently PCP - schedule 07/13/24 to discuss results PAXIL 40 mg daily,- patient educated on Paxil and over age [age] years old and risk cardio EKG discuss and educated to schedule to see PCP 07/13/24 and strongly recommended to see director process improvement - reported weakness Anxiety Clonazpeam 0.5 mg BID, Vistaril 25 mg BID Hypersomnia- SLEEP hygeine PTSD- therapy n/c BUZZ VA- hx Tobacco use discuss TMS for smoking cessation and pamplet given - will consider Do not smoke. Nicotine and other chemicals in cigarettes and cigars can cause lung damage. Ask your healthcare provider for information if you currently smoke and need help to quit. E-cigarettes or smokeless tobacco still contain nicotine. Talk to your healthcare provider before you use these products. education on decrease to stopping nicotine products and stop smoking hotline given http_s://www.[facility] .org/About-Mental -Illness/Treatmen ts/Mental-Health- Medications http_s://www.[facility] .org/About-Mental -Illness/Mental-H ealth-Conditions http_s://[employer]/depressi on/the-cognitive- wrnsnppi-cu-talze ssion#treatments http__s://www.nim .nih.gov/health/ topics/mental-hea lth-medications http__s://www.nam i.org/About-Menta l-Illness/Treatme nts/Mental-Health -Medications educated on all medications, benefits, side effects and risk, and educated on depression, anxiety, and ADHD, mood d/o and educated on compliance of medications, metabolic and movement d/o education appointment's, continue therapy discussion with patient about course of treatment and patient instructions. education on serotonin syndrome Discussed and educated pt regarding benzodiazepines are generally not intended for prolonged use and that use can cause tolerance, dependence, depression, and associated memory issues including dementias (this list is not exhaustive). Benzodiazepine use is generally not recommended concurrently with pain medications and/or other controlled substances educated on all medications, benefits, side effects and risk, and educated on depression, anxiety, and ADHD, mood d/o and educated on compliance of medications, metabolic and movement d/o education appointment is, continue therapy discussion with patient about course of treatment and patient instructions. education on serotonin syndrome SSRI/SNRI side effects discussed including but not limited to, gastric upset, nausea, vomiting, diarrhea and/or constipation, weight changes, sexual side effects including loss of libido, increased suicidal thoughts/behavior s in children and young adults, and serotonin syndrome. Patient educated on all medications including potential benefits, side effects, risks. Educated on proper dosing schedule and importance of compliance Second generation antipsychotics (SGAs) have metabolic syndrome issues with weight gain, increase in prolactin, increased waist circumference, increased lipids, and increased glucose. Thus routine monitoring of weight, metabolic labs, etc. is indicated. A general rank ordering of antipsychotics that have the greatest to the least risk of metabolic effects is olanzapine, quetiapine, risperidone, ziprasidone, and aripiprazole. However, weight gain can occur with all of these drugs and considerable variability exists among patients receiving the same drug regarding the risk of metabolic effects. Anti-psychotic agents not only increase the risk of metabolic disorder, they also increase the risk of CVA, akathisia, and movement disorders including EPS or tardive dyskinesia (more common with first generation antipsychotics) and more. Elderly- discussed risks, cognition, sedation, falls, metabolic, movement and atypical antipsychotics carry a black-box warning for increased risk of and cerebrovascular events in dementia. Medication Management and Follow-Up - Plan: - Schedule follow-up appointments every 1-3 months to monitor the patient's response to the medication regimen. - Reinforce the importance of avoiding recreational drug use due to potential neurotoxicity and interactions with prescribed medications. 10/26/2024 Encounter for screening for cardiovascular disorders (ICD-10 - Z13.6) patient recommended to see director process improvement and refused- reported stopped all heart rx and cxl last appt patient recommended to see PCP for medical and labs 1. Schizoaffective Bipolar- AIMS= 0 12/28/23- missing many teeth and poor oral health no dentures Wellbutrin XL 150 DAILY, Invega 3 mg monitor mood, psychosis, depression, agitation, paranoia, monitor metabolic - labs recently PCP - PAXIL 40 mg daily,- patient educated on Paxil and over age [age] years old and risk cardio EKG discuss and educated to schedule to see PCP 07/13/24 and strongly recommended to see director process improvement - reported weakness 2. Anxiety Clonazpeam 0.5 mg BID, Vistaril 25 mg BID 3. Hypersomnia- SLEEP hygeine 4.PTSD- therapy n/c BUZZ VA- hx 5.Tobacco use discuss TMS for smoking cessation and pamplet given - will consider Do not smoke. Nicotine and other chemicals in cigarettes and cigars can cause lung damage. Ask your healthcare provider for information if you currently smoke and need help to quit. E-cigarettes or smokeless tobacco still contain nicotine. Talk to your healthcare provider before you use these products. education on decrease to stopping nicotine products and stop smoking hotline given 6. Memory loss SLUMS= 18 10/26/24 Discuss and educated about SLUMS Discuss and educated on medications options- patient will wait at this time and see neurologist discuss seeing neurology- patient has provider and recommend MRI http_s://www.[facility] .org/About-Mental -Illness/Treatmen ts/Mental-Health- Medications http_s://www.davon .org/About-Mental -Illness/Mental-H ealth-Conditions http_s://[employer]/depressi on/the-cognitive- audvlrdy-pj-azyad ssion#treatments http__s://www.nim .nih.gov/health/ topics/mental-hea lth-medications http__s://www.nam i.org/About-Menta l-Illness/Treatme nts/Mental-Health -Medications educated on all medications, benefits, side effects and risk, and educated on depression, anxiety, and ADHD, mood d/o and educated on compliance of medications, metabolic and movement d/o education appointment's, continue therapy discussion with patient about course of treatment and patient instructions. education on serotonin syndrome Discussed and educated pt regarding benzodiazepines are generally not intended for prolonged use and that use can cause tolerance, dependence, depression, and associated memory issues including dementias (this list is not exhaustive). Benzodiazepine use is generally not recommended concurrently with pain medications and/or other controlled substances educated on all medications, benefits, side effects and risk, and educated on depression, anxiety, and ADHD, mood d/o and educated on compliance of medications, metabolic and movement d/o education appointment is, continue therapy discussion with patient about course of treatment and patient instructions. education on serotonin syndrome SSRI/SNRI side effects discussed including but not limited to, gastric upset, nausea, vomiting, diarrhea and/or constipation, weight changes, sexual side effects including loss of libido, increased suicidal thoughts/behavior s in children and young adults, and serotonin syndrome. Patient educated on all medications including potential benefits, side effects, risks. Educated on proper dosing schedule and importance of compliance Second generation antipsychotics (SGAs) have metabolic syndrome issues with weight gain, increase in prolactin, increased waist circumference, increased lipids, and increased glucose. Thus routine monitoring of weight, metabolic labs, etc. is indicated. A general rank ordering of antipsychotics that have the greatest to the least risk of metabolic effects is olanzapine, quetiapine, risperidone, ziprasidone, and aripiprazole. However, weight gain can occur with all of these drugs and considerable variability exists among patients receiving the same drug regarding the risk of metabolic effects. Anti-psychotic agents not only increase the risk of metabolic disorder, they also increase the risk of CVA, akathisia, and movement disorders including EPS or tardive dyskinesia (more common with first generation antipsychotics) and more. Elderly- discussed risks, cognition, sedation, falls, metabolic, movement and atypical antipsychotics carry a black-box warning for increased risk of and cerebrovascular events in dementia. Medication Management and Follow-Up - Plan: - Schedule follow-up appointments every 1-3 months to monitor the patient's response to the medication regimen. - Reinforce the importance of avoiding recreational drug use due to potential neurotoxicity and interactions with prescribed medications. 10/26/2024 Memory loss or impairment (ICD-10 - R41.3) patient recommended to see director process improvement and refused- reported stopped all heart rx and cxl last appt patient recommended to see PCP for medical and labs 1. Schizoaffective Bipolar- AIMS= 0 12/28/23- missing many teeth and poor oral health no dentures Wellbutrin XL 150 DAILY, Invega 3 mg monitor mood, psychosis, depression, agitation, paranoia, monitor metabolic - labs recently PCP - PAXIL 40 mg daily,- patient educated on Paxil and over age [age] years old and risk cardio EKG discuss and educated to schedule to see PCP 07/13/24 and strongly recommended to see director process improvement - reported weakness 2. Anxiety Clonazpeam 0.5 mg BID, Vistaril 25 mg BID 3. Hypersomnia- SLEEP hygeine 4.PTSD- therapy n/c BUZZ VA- hx 5.Tobacco use discuss TMS for smoking cessation and pamplet given - will consider Do not smoke. Nicotine and other chemicals in cigarettes and cigars can cause lung damage. Ask your healthcare provider for information if you currently smoke and need help to quit. E-cigarettes or smokeless tobacco still contain nicotine. Talk to your healthcare provider before you use these products. education on decrease to stopping nicotine products and stop smoking hotline given 6. Memory loss SLUMS= 18 10/26/24 Discuss and educated about SLUMS Discuss and educated on medications options- patient will wait at this time and see neurologist discuss seeing neurology- patient has provider and recommend MRI http_s://www.[facility] .org/About-Mental -Illness/Treatmen ts/Mental-Health- Medications http_s://www.davon .org/About-Mental -Illness/Mental-H ealth-Conditions http_s://[employer]/depressi on/the-cognitive- pramigcq-tf-leicy ssion#treatments http__s://www.[facility].nih.gov/health/ topics/mental-hea lth-medications http__s://www.nam i.org/About-Menta l-Illness/Treatme nts/Mental-Health -Medications educated on all medications, benefits, side effects and risk, and educated on depression, anxiety, and ADHD, mood d/o and educated on compliance of medications, metabolic and movement d/o education appointment's, continue therapy discussion with patient about course of treatment and patient instructions. education on serotonin syndrome Discussed and educated pt regarding benzodiazepines are generally not intended for prolonged use and that use can cause tolerance, dependence, depression, and associated memory issues including dementias (this list is not exhaustive). Benzodiazepine use is generally not recommended concurrently with pain medications and/or other controlled substances educated on all medications, benefits, side effects and risk, and educated on depression, anxiety, and ADHD, mood d/o and educated on compliance of medications, metabolic and movement d/o education appointment is, continue therapy discussion with patient about course of treatment and patient instructions. education on serotonin syndrome SSRI/SNRI side effects discussed including but not limited to, gastric upset, nausea, vomiting, diarrhea and/or constipation, weight changes, sexual side effects including loss of libido, increased suicidal thoughts/behavior s in children and young adults, and serotonin syndrome. Patient educated on all medications including potential benefits, side effects, risks. Educated on proper dosing schedule and importance of compliance Second generation antipsychotics (SGAs) have metabolic syndrome issues with weight gain, increase in prolactin, increased waist circumference, increased lipids, and increased glucose. Thus routine monitoring of weight, metabolic labs, etc. is indicated. A general rank ordering of antipsychotics that have the greatest to the least risk of metabolic effects is olanzapine, quetiapine, risperidone, ziprasidone, and aripiprazole. However, weight gain can occur with all of these drugs and considerable variability exists among patients receiving the same drug regarding the risk of metabolic effects. Anti-psychotic agents not only increase the risk of metabolic disorder, they also increase the risk of CVA, akathisia, and movement disorders including EPS or tardive dyskinesia (more common with first generation antipsychotics) and more. Elderly- discussed risks, cognition, sedation, falls, metabolic, movement and atypical antipsychotics carry a black-box warning for increased risk of and cerebrovascular events in dementia. Medication Management and Follow-Up - Plan: - Schedule follow-up appointments every 1-3 months to monitor the patient's response to the medication regimen. - Reinforce the importance of avoiding recreational drug use due to potential neurotoxicity and interactions with prescribed medications. 07/11/2024 Encounter for screening for cardiovascular disorders (ICD-10 - Z13.6) patient recommended to see director process improvement and refused- reported stopped all heart rx patient recommended to see PCP and scheduled 05/16 Schizoaffective Bipolar- AIMS= 0 12/28/23- missing many teeth and poor oral health no dentures Wellbutrin XL 150 DAILY, Presently on Invega 6 mg daily, discuss and education on GDR to Invega 3 mg monitor mood, psychosis, depression, agitation, paranoia, monitor metabolic - labs recently PCP - schedule 07/13/24 to discuss results PAXIL 40 mg daily,- patient educated on Paxil and over age [age] years old and risk cardio EKG discuss and educated to schedule to see PCP 07/13/24 and strongly recommended to see director process improvement - reported weakness Anxiety Clonazpeam 0.5 mg BID, Vistaril 25 mg BID Hypersomnia- SLEEP hygeine PTSD- therapy n/c BUZZ VA- hx Tobacco use discuss TMS for smoking cessation and pamplet given - will consider Do not smoke. Nicotine and other chemicals in cigarettes and cigars can cause lung damage. Ask your healthcare provider for information if you currently smoke and need help to quit. E-cigarettes or smokeless tobacco still contain nicotine. Talk to your healthcare provider before you use these products. education on decrease to stopping nicotine products and stop smoking hotline given http_s://www.[facility] .org/About-Mental -Illness/Treatmen ts/Mental-Health- Medications http_s://www.[facility]on .org/About-Mental -Illness/Mental-H ealth-Conditions http_s://psychcen [employer].com/depressi on/the-cognitive- wtncyoof-eo-tmluk ssion#treatments http__s://www.[facility].nih.gov/health/ topics/mental-hea lth-medications http__s://www.nam i.org/About-Menta l-Illness/Treatme nts/Mental-Health -Medications educated on all medications, benefits, side effects and risk, and educated on depression, anxiety, and ADHD, mood d/o and educated on compliance of medications, metabolic and movement d/o education appointment's, continue therapy discussion with patient about course of treatment and patient instructions. education on serotonin syndrome Discussed and educated pt regarding benzodiazepines are generally not intended for prolonged use and that use can cause tolerance, dependence, depression, and associated memory issues including dementias (this list is not exhaustive). Benzodiazepine use is generally not recommended concurrently with pain medications and/or other controlled substances educated on all medications, benefits, side effects and risk, and educated on depression, anxiety, and ADHD, mood d/o and educated on compliance of medications, metabolic and movement d/o education appointment is, continue therapy discussion with patient about course of treatment and patient instructions. education on serotonin syndrome SSRI/SNRI side effects discussed including but not limited to, gastric upset, nausea, vomiting, diarrhea and/or constipation, weight changes, sexual side effects including loss of libido, increased suicidal thoughts/behavior s in children and young adults, and serotonin syndrome. Patient educated on all medications including potential benefits, side effects, risks. Educated on proper dosing schedule and importance of compliance Second generation antipsychotics (SGAs) have metabolic syndrome issues with weight gain, increase in prolactin, increased waist circumference, increased lipids, and increased glucose. Thus routine monitoring of weight, metabolic labs, etc. is indicated. A general rank ordering of antipsychotics that have the greatest to the least risk of metabolic effects is olanzapine, quetiapine, risperidone, ziprasidone, and aripiprazole. However, weight gain can occur with all of these drugs and considerable variability exists among patients receiving the same drug regarding the risk of metabolic effects. Anti-psychotic agents not only increase the risk of metabolic disorder, they also increase the risk of CVA, akathisia, and movement disorders including EPS or tardive dyskinesia (more common with first generation antipsychotics) and more. Elderly- discussed risks, cognition, sedation, falls, metabolic, movement and atypical antipsychotics carry a black-box warning for increased risk of and cerebrovascular events in dementia. Medication Management and Follow-Up - Plan: - Schedule follow-up appointments every 1-3 months to monitor the patient's response to the medication regimen. - Reinforce the importance of avoiding recreational drug use due to potential neurotoxicity and interactions with prescribed medications. 12/28/2023 Other Learning About Low-Fat Eating material was published, Low-Fat Diet for Gallbladder Disease: Care Instructions material was published, Body Mass Index: Care Instructions material was published, Learning About Low-Carbohydra te Diets material was published, Learning About Low-Carbohydra te Foods material was published, Learning About Carbohydrate (Carb) Counting and Eating Out When You Have Diabetes material was published, Heart-Healthy Diet: Care Instructions material was published, A Healthy Heart: Care Instructions material was published, Learning About Low-Fat Eating material was published, Low-Fat Diet for Gallbladder Disease: Care Instructions material was published, Body Mass Index: Care Instructions material was published, Learning About Low-Carbohydra te Diets material was published, Learning About Low-Carbohydra te Foods material was published, Learning About Carbohydrate (Carb) Counting and Eating Out When You Have Diabetes material was published, Heart-Healthy Diet: Care Instructions material was published, A Healthy Heart: Care Instructions material was published, Diet and Exercise for Metabolic Syndrome: Care Instructions material was published Presently taking Wellbutrin XL 150 DAILY, Invega 6 mg daily, PAXIL 40 mg daily, Clonazpeam 0.5 mg BID, Vistaril 25 mg BID Schizoaffective Bipolar- AIMS= 0 12/28/23- missing many teeth and poor oral health no dentures Wellbutrin XL 150 DAILY, Invega 6 mg daily, PAXIL 40 mg daily, Anxiety Clonazpeam 0.5 mg BID, Vistaril 25 mg BID Hypersomnia- SLEEP hygeine PTSD- therapy n/c BUZZ VA- hx Tobacco use Do not smoke. Nicotine and other chemicals in cigarettes and cigars can cause lung damage. Ask your healthcare provider for information if you currently smoke and need help to quit. E-cigarettes or smokeless tobacco still contain nicotine. Talk to your healthcare provider before you use these products. education on decrease to stopping nicotine products and stop smoking hotline given http_s://www.[facility] .org/About-Mental -Illness/Treatmen ts/Mental-Health- Medications http_s://www.[facility]on .org/About-Mental -Illness/Mental-H ealth-Conditions http_s://[employer]/depressi on/the-cognitive- smqsbikp-xy-bwouk ssion#treatments http__s://www.[facility].nih.gov/health/ topics/mental-hea lth-medications http__s://www.[employer]/About-Menta l-Illness/Treatme nts/Mental-Health -Medications educated on all medications, benefits, side effects and risk, and educated on depression, anxiety, and ADHD, mood d/o and educated on compliance of medications, metabolic and movement d/o education appointment's, continue therapy discussion with patient about course of treatment and patient instructions. education on serotonin syndrome Discussed and educated pt regarding benzodiazepines are generally not intended for prolonged use and that use can cause tolerance, dependence, depression, and associated memory issues including dementias (this list is not exhaustive). Benzodiazepine use is generally not recommended concurrently with pain medications and/or other controlled substances educated on all medications, benefits, side effects and risk, and educated on depression, anxiety, and ADHD, mood d/o and educated on compliance of medications, metabolic and movement d/o education appointment is, continue therapy discussion with patient about course of treatment and patient instructions. education on serotonin syndrome SSRI/SNRI side effects discussed including but not limited to, gastric upset, nausea, vomiting, diarrhea and/or constipation, weight changes, sexual side effects including loss of libido, increased suicidal thoughts/behavior s in children and young adults, and serotonin syndrome. Patient educated on all medications including potential benefits, side effects, risks. Educated on proper dosing schedule and importance of compliance Second generation antipsychotics (SGAs) have metabolic syndrome issues with weight gain, increase in prolactin, increased waist circumference, increased lipids, and increased glucose. Thus routine monitoring of weight, metabolic labs, etc. is indicated. A general rank ordering of antipsychotics that have the greatest to the least risk of metabolic effects is olanzapine, quetiapine, risperidone, ziprasidone, and aripiprazole. However, weight gain can occur with all of these drugs and considerable variability exists among patients receiving the same drug regarding the risk of metabolic effects. Anti-psychotic agents not only increase the risk of metabolic disorder, they also increase the risk of CVA, akathisia, and movement disorders including EPS or tardive dyskinesia (more common with first generation antipsychotics) and more. Elderly- discussed risks, cognition, sedation, falls, metabolic, movement and atypical antipsychotics carry a black-box warning for increased risk of and cerebrovascular events in dementia. Medication Management and Follow-Up - Plan: - Schedule follow-up appointments every 1-3 months to monitor the patient's response to the medication regimen. - Reinforce the importance of avoiding recreational drug use due to potential neurotoxicity and interactions with prescribed medications. Plan Of Treatment Next Appt Details Provider Name:Qian Sherman , 01/18/2025 02:15:00 PM, [address] [facility] [address] [facility] [address], [place], [address], Insurance Providers Payer Name Payer Address Payer Phone Subscriber Number Group Number Insured Name Patient Relationship to Insured Coverage Start Date Coverage End Date [facility] [address] [address] [place] [address] [id number] T+O LAINEYIRMAARTEMIO Palumbo Self - patient is the insured For Life - Medicare Supplement [address] [place] [address] [id number] ARTEMIO ONOFRE Self - patient is the insured Medical (General) History Medical History History ICD Code Problems: Chronic post-traumatic stress disorder Generalized anxiety disorder Long-term drug therapy Major depressive disorder Nicotine dependence Primary hypersomnia Schizoaffective disorder, bipolar type glaucoma Past Psychiatric History: An xiety Disorder,Panic Disorder,Phobias,PTSD,Schizophrenia,Schizoaffective Disorder,Major Depressive Episode,Bipolar Disorder abdominal aortic aneurysm: No atrial fibrillation: Yes chronic fatigue syndrome: No essential tremor: No hyperlipidemia: No hypertension: Yes Parkinson's disease: No restless leg syndrome: Yes stroke: No subdural hematoma: No type 2 diabetes mellitus: Yes vitamin B12 deficiency: Yes vitamin D deficiency: Yes Past Psychiatric History: An xiety Disorder,Panic Disorder,Phobias,PTSD,Schizoaffective Disorder,Major Depressive Episode,Bipolar Disorder chronic fatigue syndrome: Yes restless leg syndrome: No type 1 diabetes mellitus: No Surgical History Surgery Date(Month/Year) Heart surgery Cardiac stent Tonsilectomy/adenoids Tonsilectomy/adenoids 03/22/1962 Cardiac stent 03/22/2008
--- OUTSIDE RECORDS SUMMARY | 2024-11-23 19:58 | XMS_ITS | Clinical Summary ---
Author Organization [facility] Address [address] [place] [address] Care Team Providers Care Sport Shoe Spike Assembler Name Role Phone MirtaAndrés henry Min Primary Care Provider Allergies Active Allergy Reactions Criticality Noted Date Comments Niacin Rash Low 07/07/2018 Sulfa (Sulfonamide Antibiotics) Rash Low 06/20 Medications metFORMIN (GLUCOPHAGE) 1,000 mg tablet Take 1,500 mg by mouth daily with breakfast. Active metFORMIN (GLUCOPHAGE) 1,000 mg tablet Take 1,000 mg by mouth daily with supper. Active melatonin 3 mg Tablet Take by mouth daily at bedtime. Active aspirin (ECOTRIN EC) 81 mg Tablet, Delayed Release (E.C.) Take 81 mg by mouth daily. Active magnesium oxide (MAG-OX) 400 mg (241.3 mg magnesium) tablet Take 400 mg by mouth daily. Active buPROPion HCl (WELLBUTRIN SR) 150 mg Sustained Release 12 hour tablet Take 150 mg by mouth 2 times daily. Active sitaGLIPtin (JANUVIA) 100 mg Tablet Take 100 mg by mouth daily with breakfast. Active pantoprazole (PROTONIX) 40 mg Tablet, Delayed Release (E.C.) Take 40 mg by mouth daily. Active pravastatin (PRAVACHOL) 20 mg tablet Take 20 mg by mouth daily at bedtime. Active PARoxetine HCl (PAXIL) 40 mg tablet Take 40 mg by mouth daily. Active metoprolol tartrate (LOPRESSOR) 25 mg tablet Take 50 mg by mouth 2 times daily. Active clonazePAM (KlonoPIN) 0.5 mg Tablet Take 0.5 mg by mouth 2 times daily. Active traZODone (DESYREL) 50 mg tablet Take 50 mg by mouth daily at bedtime. Active risperiDONE (RisperDAL) 2 mg tablet Take 2 mg by mouth daily. Active apixaban (ELIQUIS) 5 mg tablet Take 5 mg by mouth 2 times daily. Active cyanocobalamin 1,000 mcg Tablet Take 1,000 mcg by mouth daily. Active omega-3 fatty acids-fish oil 300-1,000 mg Capsule Take 1 Capsule by mouth daily. Active diphenhydrAMINE (BENADRYL) 25 mg tablet Take 50 mg by mouth daily at bedtime. Active diphenhydrAMINE (BENADRYL) 25 mg tablet Take 25 mg by mouth every 6 hours as needed for Allergies. Active Active Problems Problem Noted Date Diagnosed Date Tobacco use 07/07/2018 Leukocytosis (leucocytosis) 07/07/2018 Family History Medical History Relation Name Comments Other Brother Depression Father Depression Mother Depression Sister 1 Depression Sister 2 Depression Sister 3 Relation Name Status Comments Brother Alive Father Mother Sister 1 Sister 2 Alive Sister 3 Alive Social History Tobacco Use Types Packs/Day Years Used Date Smoking Tobacco: Every Day Cigarettes 1 45 Alcohol Use Standard Drinks/Week Comments Never 0 (1 standard drink = 0.6 oz pur e alcohol) Sex and Gender Information Value Date Recorded Sex Assigned at Not on file Legal Sex Male 11:51 AM CDT Gender Identity Not on file Sexual Orientation Not on file Last Filed Vital Signs Vital Sign Reading Time Taken Comments Blood Pressure 129/74 07/13/2018 2:35 PM CDT Pulse 88 07/13/2018 2:35 PM CDT Temperature 36.5 C (97.7 F) 07/13/2018 2:35 PM CDT Respiratory Rate 16 07/07/2018 1:47 PM CDT Oxygen Saturation 97% 07/13/2018 2:35 PM CDT Inhaled Oxygen Concentration - - Weight 134.5 kg (296 lb 8 oz) 07/13/2018 2:35 PM CDT Height 193 cm (6' 4) 07/13/2018 2:35 PM CDT Body Mass Index 36.09 07/13/2018 2:35 PM CDT Plan of Treatment Health Maintenance Due Date Last Done Comments DTAP/TDAP/TD VACCINES (1 - Tdap) 1976 PNEUMOCOCCAL VACCINE 50+ YEARS (1 of 2 - PCV) 04/21/18 77 COLORECTAL SCREENING 2002 Colorectal Cancer Screening 2002 FIT-DNA Q 3 years 2002 FIT/FOBT Q 1 year 2002 Flex Sig/CT Colonography Q 5 years 2002 ZOSTER VACCINE (1 of 2) 2007 INFLUENZA VACCINE (#1) 2024 RSV VACCINE (60+ or ) (1 - 1-dose 75+ series) 2032 Insurance [facility] Care Teams Sport Shoe Spike Assembler Relationship Specialty Start Date End Date Andrés Bradshaw DO [address] [id number] PCP - General Internal Medicine 06/02/18
--- OUTSIDE RECORDS SUMMARY | 2024-11-23 19:58 | XMS_ITS | Clinical Summary ---
Author Organization [facility] Facility Address [address] [address] Care Team Providers Care Supervisor Grading Name Role Phone Olinda Trujillo MD Primary Care Provider [phone] Social History Tobacco Use Types Packs/Day Years Used Date Smoking Tobacco: Never Assessed Sex and Gender Information Value Date Recorded Sex Assigned at Not on file Legal Sex Male 11:23 AM EDT Gender Identity Not on file Sexual Orientation Not on file Plan of Treatment Health Maintenance Due Date Last Done Comments Colorectal Cancer Screening: Annual FOBT 2006 Colorectal Cancer Screening: Colonoscopy 2006 Colorectal Cancer Screening: Sigmoidoscopy 2006 Pneumococcal Vaccine: 50+ Ye ars (1 of 1 - PCV) 2007 Influenza Vaccine (#1) 2024 Hepatitis B Vaccine Aged Out No longe r eligible based on patient's age to complete this topic Insurance [place] [address] [place] [address] [facility] Care Teams Supervisor Grading Relationship Specialty Start Date End Date Olinda Trujillo MD [address] [place] [address] [place] [address] PCP - General Family Medicine 11/09/23
[2024-11-23 20:09] LABS: Alanine Aminotransferase 19 U/L (6-50); Albumin Level 3.9 g/dL (3.5-5.1); Alkaline Phosphatase 63 U/L (38-126); Anion Gap 7 mmol/L (4-12); Aspartate Amino Transferase 28 U/L (17-59); Bilirubin,Total 0.3 mg/dL (0.2-1.3); Blood Urea Nitrogen 10 mg/dL (9-20); Calcium 9.6 mg/dL (8.4-10.2); Carbon Dioxide 28 mmol/L (22-30); Chloride 102 mmol/L (98-107); Estimated CRCL calculation 67 ml/min; Estimated Glomerular Filt Rate 54; Glucose 89 mg/dL (65-110); Magnesium 1.7 mg/dL (1.6-2.3); Potassium 4.5 mmol/L (3.4-5.0); Sodium 137 mmol/L (137-145); Total Protein 6.9 g/dL (6.3-8.2)
[2024-11-23 20:35] VITALS: BP 117/70
== END 2024-11-23 20:36 | disposition home or self-care (01) ==
PROVIDERS: Emergency Provider Emergency Medicine; PCP Nurse Practitioner
DX: E11.628 Type 2 diabetes mellitus with other skin complications (principal); L98.8 Other specified disorders of the skin and subcutaneous tissue; E11.22 Type 2 diabetes mellitus with diabetic chronic kidney disease; I12.9 Hypertensive chronic kidney disease with stage 1 through stage 4 chronic kidney disease, or unspecified chronic kidney disease; N18.30 Chronic kidney disease, stage 3 unspecified; I48.91 Unspecified atrial fibrillation; I25.10 Atherosclerotic heart disease of native coronary artery without angina pectoris; E03.9 Hypothyroidism, unspecified; E66.01 Morbid (severe) obesity due to excess calories; Z68.41 Body mass index [BMI] 40.0-44.9, adult; F17.210 Nicotine dependence, cigarettes, uncomplicated; Z79.82 Long term (current) use of aspirin; Z79.899 Other long term (current) drug therapy; Z79.84 Long term (current) use of oral hypoglycemic drugs; Z79.01 Long term (current) use of anticoagulants
CPT/HCPCS: 36415; 73630; 80053; 83735; 85025; 99283

== ENCOUNTER 2024-12-13 13:12 | Outpatient (RCR) | payer MEDICARE, OTHER, SELFPAY ==
--- NOTE | 2024-12-13 13:39 | WNDPHOTO ---
PHOTO ONLY - See Nursing Notes and/ or assessments for documentation.
--- NOTE | 2024-12-13 13:43 | WNDPHOTO ---
PHOTO ONLY - See Nursing Notes and/ or assessments for documentation.
[2024-12-13 14:54] VITALS: BMI 40.5
--- NOTE | 2024-12-18 09:53 | PCWOUND ---
Patient's transmitter supervisor, Love, contacted wound center to inquire about home health. Patient unable to complete daily dressing changes at home due to memory and neurological issues. There is no family available to complete daily dressing changes. Contacted Dr. Manzanares's office today and talked to Kalee about setting up home health. Dressing type foam with silver with medipore tape to hold in place. Kalee to discuss with Dr. Manzanares this afternoon. Love was called back to inform her of the plan for Dr. Manzanares to order home health.
--- NOTE | 2024-12-19 10:42 | PCWOUND ---
Dr. Manzanares's office ordered Home Health. Home Health denied patient due to no family or care provider in the home to teach and patient's mental status. Sibling (POA) was called with no voicemail set up and unable to leave message. This is the only number available in the chart. Dr. Manzanares's office made aware of situation. Patient has an appointment with Dr. Manzanares 01/08/25. Patient's amalgamator, Love, contacted to inform her of the situation and attempts to contact the patient's sister. No further wound center visits scheduled. Patient to see Dr. Manzanares 01/08/25 and discuss furhter options at that time.
== END 2025-02-13 14:16 | disposition home or self-care (01) ==
LOC: ANHWOC 13:12
PROVIDERS: PCP Nurse Practitioner; Visit Provider Podiatrist Foot & Ankle Surgery
DX: L97.512 Non-pressure chronic ulcer of other part of right foot with fat layer exposed (principal); E11.621 Type 2 diabetes mellitus with foot ulcer
CPT/HCPCS: 99214; G0463

== ENCOUNTER 2025-01-16 14:05 | Emergency (ER) | payer MEDICARE, OTHER, SELFPAY ==
--- OUTSIDE RECORDS SUMMARY | 2008-07-26 05:45 | XMS_ITS | Continuity of Care Document ---
Author Organization [facility] Address [address] [place] [address] Exec utive [facility] [address] [place] [address] Phone Care Team Providers Care Analytical Consultant Name Role Phone Jamessathish Jairo Unavailable Unavailable Procedures Procedure Date Eye Exam, New Patient Advance Directives Directive Yes / No Effective Date File Name No Information Encounters Encounter Description Practice Location Reason(s) For Visit Diagnoses Date Provider Providers Copied on Encounter [facility], [address], [place], [place], [id number], [place] tel:[phone] [facility] No Information 7-200 9 Feicaitie Jairo. [address] [facility] [address], [place], [address], [place]. tel:[phone] Family History Family Member Type Diagnosis Age At Onset No Information Payers Payer name Insurance type Covered libertarian ID Authoriza tion(s) No Information Social History Type Description Quantity Date Captured Comments Sex Male Smoking Status No Information Chief Complaint And Reason For Visit No Information Reason For Referral Reason For Referral No Information History Of Present Illness Encounter Date Complaint History Of Prese nt Illness No Information Functional Status Date Functional Assessmen t No Information Instructions Date Instruction Additional Infor mation No Information Assessments Type Assessment Date No Information Patient Care Teams Name Effective Dates (start - stop) Status Members No Information
--- OUTSIDE RECORDS SUMMARY | 2008-07-26 05:45 | XMS_ITS | Continuity of Care Document ---
Author Organization [facility] Address [address] [place] [address] Exec utive [facility] [address] [place] [address] Phone Care Team Providers Care Machine Operator Hop Picker Name Role Phone Jamessathish Jairo Unavailable Unavailable Procedures Procedure Date Eye Exam, New Patient Advance Directives Directive Yes / No Effective Date File Name No Information Encounters Encounter Description Practice Location Reason(s) For Visit Diagnoses Date Provider Providers Copied on Encounter [facility], [address], [place], [place], [id number], [place] tel:[phone] [facility] No Information [phone] Feicaitie Jairo. [address] [facility] [address], [place], [address], [place]. tel:[phone] Family History Family Member Type Diagnosis Age [...]
--- NOTE | ~2025-01-16 | XR_ITS ---
EXAMINATION: XR ankle LT min 3V, 01/16/2025 14:56 CDT HISTORY: twisted ankle COMPARISON: No comparisons available. Findings: Nondisplaced acute fracture distal fibula Remote corticated fractures of the malleoli bilaterally No significant degenerative changes. Soft tissues unremarkable. Impression: Distal fibular fracture Reviewed, dictated and finalized at location P. Impression: Distal fibular fracture
--- NOTE | ~2025-01-16 | XR_ITS ---
EXAMINATION: XR foot RT min 3V, 01/16/2025 14:56 CDT HISTORY: ulcer COMPARISON: No comparisons available. Findings: No acute fracture or malalignment. No significant degenerative changes. Soft tissues unremarkable. Impression: No acute fracture or malalignment. Reviewed, dictated and finalized at location P. Impression: No acute fracture or malalignment.
[2025-01-16 14:23] VITALS: BP 96/55; PULSE 78; RESP 20; TEMP 36.4; O2SAT 95
--- NOTE | 2025-01-16 14:48 | ED.FALL ---
HPI - Fall General Chief Complaint: Fall Stated Complaint: fall yesterday with left sore ankle Time Seen by Provider: 01/16/25 14:12 History of Present Illness HPI Narrative: 69-year-old male with history of central auditory processing disorder, memory impairment, schizoaffective disorder, AFib on Eliquis and diabetes. Patient presents to the emergency department today as he twisted his ankle yesterday. Patient states he twisted his ankle and got stuck between a concrete block and his trailer. Was able to get up but was having some pain with ambulation afterwards. Did not fall or hit his head. 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 He wants to get this wound checked out. Denies any paresthesias or weakness in the limb. Was otherwise in his normal state of health. Has not take anything for pain control. Presents via EMS as he has some baseline mobility issues. Related Data Home Medications ?Medication ?Instructions ?Recorded ?Confirmed ?Last Taken ?Type aspirin 81 mg tablet,delayed 81 mg PO DAILY 03/27/19 11/15/23 Unknown History release (Adult Aspirin Regimen) clonazepam 0.5 mg tablet 0.5 mg PO BID PRN Anxiety 03/27/19 11/15/23 Unknown History loratadine 10 mg tablet (Allergy 10 mg PO DAILY 03/27/19 11/15/23 Unknown History Relief (loratadine)) cholecalciferol (vitamin D3) 250 50 mcg PO DAILY 07/18/19 11/15/23 Unknown History mcg (10,000 unit) capsule mecobalamin (vitamin B12) 5,000 500 mcg PO DAILY 07/18/19 11/15/23 Unknown History mcg disintegrating tablet melatonin 3 mg capsule 5 mg PO HS 10/10/19 11/15/23 Unknown History bupropion HCl 150 mg tablet,12 hr 150 mg PO DAILY 01/15/20 11/15/23 Unknown History sustained-release paliperidone 6 mg tablet,extended 6 mg PO HS 01/15/20 11/15/23 Unknown History release 24 hr hydroxyzine HCl 25 mg tablet 25 mg PO BID PRN Anxiety 06/02/22 11/15/23 Unknown History paroxetine HCl 40 mg tablet 40 mg PO DAILY 06/02/22 11/15/23 Unknown History Allergies Allergy/AdvReac Type Severity Reaction Status Date / Time Sulfa (Sulfonamide Allergy Unknown Unknown Verified 11/15/23 13:04 Antibiotics) niacin AdvReac Mild Flushing Verified 11/15/23 13:04 lactose milk products AdvReac Intermediate GI upset Uncoded 11/15/23 13:04 Review of Systems Review of Systems: As reviewed above in [facility] Past Medical History Medical History Morbid obesity with BMI of 40.0-44.9, adult Type 2 DM with CKD stage 3 and hypertension Poor dentition Acquired hypothyroidism Atrial fibrillation Coronary artery disease Surgical History Surgical History Surgical history unknown Family History Family History Mother Depression Hypertension Family history of arthritis Diabetes mellitus Father Family history of alcoholism Sibling Family history of alcoholism Grandparent Family history of cardiovascular disease Social History Social History Smoking packs per day: 2 Smoking cigarettes per day: 40.0 Years smoked: 47 Smoking pack-years: 94.00 Smoking status: Current every day smoker Tobacco type: cigarettes Second hand tobacco smoke exposure: Yes Alcohol intake: never Substance use: never Substance use type: does not use Lack of Transportation: No Lack of Food: Never True Current Housing: I Have Housing Concerned About Future Housing: No Difficulty Paying Gas/Electric Bills: No Difficulty Paying for Meds: No Currently Unemployed: No Education: High School Diploma/GED Difficulty w/ Childcare or Family Care: No Spiritual care concerns: No Exam Narrative: GENERAL: [Well-appearing, well-nourished, and in no acute distress.] HEAD: [Normocephalic, atraumatic.] EYES: [PERRLA and EOMI.] ENT: Nares clear, no rhinorrhea or epistaxis. Mucous membranes moist. NECK: Supple. CHEST: [Clear to auscultation. No respiratory distress.] HEART: [Regular rate and rhythm]. No murmur heard. [Normal peripheral pulses.] ABDOMEN: [Soft, nondistended], [nontender], [No rigidity or guarding] EXTREMITIES: Tender to palpation over the medial malleolus of the left ankle but no posterior tibial ridge tenderness or deformity. Ankle plantar and dorsiflexion intact with pain minimally worsened with movement. No forefoot or midfoot tenderness but able to wiggle the toes. Good cap refill of each digit. No skin discoloration. Contralateral right leg has a lateral ulceration near the 5th metatarsal that has good granulation tissue surrounding and no signs of redness erythema, warmth or purulence. No tenderness with palpation. Good range of motion. SKIN: Warm, dry, no rash. NEURO: [No focal deficits]. Alert and oriented [x3.] PSYCH: [Normal mood and affect.] Course Vital Signs Vital signs: Vital Signs Temperature 36.4 C 01/16/25 14:23 Pulse Rate 78 01/16/25 14:23 Respiratory Rate 20 01/16/25 14:23 Blood Pressure 96/55 L 01/16/25 14:23 Pulse Oximetry 95 01/16/25 14:23 Oxygen Delivery Room Air 01/16/25 14:23 Temperature 36.6 C 01/16/25 17:36 Pulse Rate 85 01/16/25 17:36 Respiratory Rate 14 01/16/25 17:36 Blood Pressure 121/70 01/16/25 17:36 Pulse Oximetry 95 01/16/25 17:36 Oxygen Delivery Room Air 01/16/25 14:23 MDM - Fall MDM Narrative Medical decision making narrative: 69-year-old male with history of central auditory processing disorder, memory impairment, schizoaffective disorder, AFib on Eliquis and diabetes. Patient presents to the emergency department today as he twisted his ankle yesterday. Patient states he twisted his ankle and got stuck between a concrete block and his trailer. Was able to get up but was having some pain with ambulation afterwards. Did not fall or hit his head. 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 He wants to get this wound checked out. Denies any paresthesias or weakness in the limb. Was otherwise in his normal state of health. Has not take anything for pain control. Presents via EMS as he has some baseline mobility issues. Tender to palpation over the medial malleolus of the left ankle but no posterior tibial ridge tenderness or deformity. Ankle plantar and dorsiflexion intact with pain minimally worsened with movement. No forefoot or midfoot tenderness but able to wiggle the toes. Good cap refill of each digit. No skin discoloration. Contralateral right leg has a lateral ulceration near the 5th metatarsal that has good granulation tissue surrounding and no signs of redness erythema, warmth or purulence. No tenderness with palpation. Good range of motion. Patient has no tachycardia or fever. Exam consistent with left ankle sprain versus less likely fracture. Right foot has a chronic diabetic ulcer that does not appear actively infected. Already on appropriate antibiotics and has a general machinist that saw him several days ago for this. Has podiatry follow-up and wound care provided here and dressing applied. X-rays of the left ankle and right foot obtained to rule out other acute process. X-ray independently reviewed shows a distal fibular fracture looks like De type B. soft tissues are unremarkable. Right foot without any findings. Wound dressed and posterior short-leg splint applied to the left extremity with crutches for ambulation assistance provided. Patient will be discharged with orthopedics referral for the fracture. Was able to call care coordination and patient was given a DME prescription for a walker to have at home in addition to resources for transportation to and from appointments given his limited mobility. Medical Records Attestation: I reviewed the patient's medical records. Imaging Data Attestation: I personally reviewed and interpreted this imaging study as follows: My impression: Impressions Foot X-Ray 01/16/25 15:06 Impression: No acute fracture or malalignment. Ankle X-Ray 01/16/25 15:07 Impression: Distal fibular fracture Discharge Plan Discharge Clinical Impression: Fracture of distal end of fibula, Chronic wound Patient Disposition: Home Condition: Stable Instructions: Antibiotic Form, Ankle Fracture (DC) Additional Instructions: You have a distal fibular fracture of the left ankle. We have placed her leg into a splint for stability and comfort. Take Tylenol and ibuprofen for pain control. Follow-up with the provided orthopedics surgeon for evaluation and further management. Your right leg has a chronic wound that does not appear infected and no signs of any bony abnormality underneath. Follow-up with your general machinist for further care of this. Return with any emergent concerns. Patient Language: Moroccan Prescriptions: Scott (ARMAAN) [facility] See Rx Instructions .Route Qty: 1 0RF Rx Instructions: As directed No Action cholecalciferol (vitamin D3) 250 mcg (10,000 unit) capsule 50 mcg PO DAILY mecobalamin (vitamin B12) 5,000 mcg tablet,disintegrating 500 mcg PO DAILY aspirin [Adult Aspirin Regimen] 81 mg tablet,delayed release (DR/EC) 81 mg PO DAILY clonazepam 0.5 mg tablet 0.5 mg PO BID PRN (Reason: Anxiety) loratadine [Allergy Relief (loratadine)] 10 mg tablet 10 mg PO DAILY bupropion HCl 150 mg tablet sustained-release 12 hr 150 mg PO DAILY melatonin 3 mg capsule 5 mg PO HS paliperidone 6 mg tablet extended release 24hr 6 mg PO HS hydroxyzine HCl 25 mg tablet 25 mg PO BID PRN (Reason: Anxiety) paroxetine HCl 40 mg tablet 40 mg PO DAILY cephalexin 500 mg capsule 500 mg PO Q12H 7 Days Qty: 14 0RF pantoprazole 40 mg tablet,delayed release (DR/EC) See Rx Instructions .ROUTE .COMPLEX Qty: 90 1RF Dose Instruction: TAKE 1 TABLET BY MOUTH DAILY Rx Instructions: TAKE 1 TABLET BY MOUTH DAILY pravastatin 20 mg tablet 20 mg PO DAILY Qty: 90 3RF magnesium oxide 400 mg magnesium tablet 400 mg PO BID Qty: 60 6RF Januvia 100 mg tablet See Rx Instructions .ROUTE .COMPLEX Qty: 90 3RF Dose Instruction: TAKE 1 TABLET BY MOUTH DAILY Rx Instructions: TAKE 1 TABLET BY MOUTH DAILY albuterol sulfate 90 mcg/actuation HFA aerosol inhaler See Rx Instructions .ROUTE .COMPLEX Qty: 8.5 1RF Dose Instruction: INHALE 2 PUFFS BY MOUTH EVERY 6 HOURS NEEDED FOR SHORTNESS OF BREATH OR WHEEZING Rx Instructions: INHALE 2 PUFFS BY MOUTH EVERY 6 HOURS NEEDED FOR SHORTNESS OF BREATH OR WHEEZING Eliquis 5 mg tablet See Rx Instructions .ROUTE .COMPLEX Qty: 180 0RF Dose Instruction: TAKE 1 TABLET BY MOUTH TWICE DAILY Rx Instructions: TAKE 1 TABLET BY MOUTH TWICE DAILY Invokana 100 mg tablet 100 mg PO DAILY Qty: 30 0RF Rx Instructions: NEEDS APPOINTMENT FOR FURTHER REFILLS Trelegy Ellipta 100-62.5-25 mcg blister with device See Rx Instructions .ROUTE .COMPLEX Qty: 60 6RF Dose Instruction: INHALE 1 PUFF BY MOUTH EVERY MORNING. RINSE MOUTH AND SPIT AFTER EACH USE Rx Instructions: INHALE 1 PUFF BY MOUTH EVERY MORNING. RINSE MOUTH AND SPIT AFTER EACH USE metoprolol tartrate 50 mg tablet See Rx Instructions .ROUTE .COMPLEX Qty: 60 5RF Dose Instruction: TAKE 1 TABLET BY MOUTH EVERY 12 HOURS Rx Instructions: TAKE 1 TABLET BY MOUTH EVERY 12 HOURS Follow-up/Referrals: Breezy Faria MD [Physician, Orthopedics] - 3 Days Referral Note: Left distal fibular fracture Steve,Rosemary Dee NP [Primary Care Provider, Unknown] Time of Disposition: 15:25
--- NOTE | 2025-01-16 14:54 | PC.NURSE ---
Pt. to x-ray.
--- NOTE | 2025-01-16 16:00 | PC.NURSE ---
Dr. Avila at bedside updating pt. and pt. caregiver at bedside. Pt. is A&Ox4, but slow to respond. This is baseline. Pt. caregiver requesting care coordination. Care coordination to bedside to discuss additional assistance options with pt. new diagnosis of left fibular fracture.
--- OUTSIDE RECORDS SUMMARY | 2025-01-16 16:23 | XMS_ITS | Data Portability ---
Author Organization [place] [email or web address], Main Office Address [address] [place] [address] Assessment No assessment recorded. Plan of Treatment Reminders Order Date Submit Date Provider Last Modified By Organization Details Last Modified Time Details Appointments Follow Up 15 2024 02:00P Dee Wilson NP Not available Not available Not available Lab HbA1c (hemoglob in A1c), blood 2024 025 MATTY [facility], [address], [place], [address], 10/18/2024 06:15:42 HbA1c (hemoglob in A1c), blood 2024 025 [email or web address] [facility], [address], [place], [address], 10/17/2024 15:58:03 HbA1c (hemoglob in A1c), blood 2024 025 llalor [facility], [address], [place], [address], 11/24/2024 09:18:54 noninvasi ve colorecta l cancer DNA + occult blood screening , QL, stool 2023 024 [email or web address] 2 [facility], Rebecca E Angeles Mejia, [address], [place], [address], 12/28/2024 11:06:05 HbA1c (hemoglob in A1c), blood 2023 024 MATTY [facility], [address], [place], [address], 07/07/2024 09:45:02 Hepatitis C IgG Ab, qual, serum 2023 024 [email or web address] 2 [facility], [address], [place], [address], 07/05/2024 08:30:32 lipid panel, serum 2023 024 MATTY [facility], [address], [place], [address], 07/07/2024 09:45:00 CMP, serum or plasma 2023 024 [email or web address] 2 [facility], [address], [place], [address], 07/05/2024 08:30:32 CBC w/ auto diff 2023 024 MATTY [facility], [address], [place], [address], 07/07/2024 09:44:58 TSH + free T4, serum 2023 024 [email or web address] 2 [facility], [address], [place], [address], 07/05/2024 08:30:32 PSA, serum or plasma 2023 024 llalor Not available 12/10/2023 12:50:04 CBC w/ auto diff 2023 024 MATTY Not available 11/03/2023 08:29:30 HbA1c (hemoglob in A1c), blood 2023 024 MATTY Not available 11/03/2023 08:29:32 BMP, serum or plasma 2023 024 MATTY Not available 11/03/2023 08:29:31 lipid panel, serum 2023 024 MATTY Not available 11/03/2023 08:29:32 hepatic function panel, serum 2023 024 MATTY Not available 11/03/2023 08:29:31 TSH, serum or plasma 2023 024 llalor Not available 12/10/2023 12:50:04 Referral cardiolog ist referral - Please call patient to schedule an appointme nt. Thank you. 2024 025 [email or web address] [facility] Referral Fax Line, [address], [address], [place], [address], 11/01/2024 09:24:49 physical therapist referral - Please call patient to schedule. 2024 025 [email or web address] [facility], [address], [address], [place], [address], 08/22/2024 10:49:53 nephrolog ist referral - Please call patient to schedule an appointme nt. Thank you. 2023 024 [email or web address] Jorge Samson DO, [address], [address], [place], [address], 12/06/2023 08:38:46 diabetic ophthalmo logy referral - Please call patient to schedule an appointme nt. Thank you. 2023 024 [email or web address] Franklyn Estrada, [address], [address], [place], [address], 08/06/2023 08:43:44 Procedures None recorded. Surgeries None recorded. Imaging XR, knee, 3 view - Both knees [address] [place] [address], [facility] [address], [address], 07/05/2024 08:30:21 XR, lumbar spine 2023 [email or web address] [place] [address], [facility] [address], [place], [address], 07/05/2024 08:30:21 Medication Orders Invokana 100 mg tablet 2024 025 [facility], [address] [facility], [address], [place], [address], 10/17/2024 16:00:26 Rybelsus 3 mg tablet 2024 025 [facility] #[id number], [address], [place], [place], [id number], 09/07/2024 15:57:53 metoprolo l tartrate 25 mg tablet 2024 025 [facility] #[id number], [address], [place], [place], [id number], 07/13/2024 16:01:44 glipizide ER 10 mg tablet, extended release 24 hr 2023 024 [facility] #[id number], [address], [place], [place], [id number], 02/23/2024 15:12:51 Patient TargetsNo targets recorded. Patient Instructions Encounter Date Encounter Id Patient Instructions Last Modified By Organization Details Last Modified Time 02/23/2024 [id number] diabetic eye exam* llalor Not available 08/28/2024 15:18:50 Follow up in 3 months Obtain labs/Xrays Tests: Complete cologuard Referral: Quantum-Diabetic eye exam Recommend: Tetanus vaccine Shingles vaccine Not available 02/23/2024 15:20:37 Reason for Referral Diabetic Ophthalmology Refer ral for Diabetes mellitus Please call patient to schedule an appointment. Thank you. Referring Physician: Olinda Trujillo, Family Medicine, Encounter Date: 07/08/2023 Collection Systems Technician Referral for Se rum creatinine above reference range Please call patient to schedule an appointment. Thank you. Referring Physician: Rosemary Wilson, Family Medicine, Encounter Date: 11/08/2023 Physical Therapist Referral for Muscle weakness Please call patient to schedule. Referring Physician: Rosemary Wilson, [facility], Encounter Date: 07/13/2024 Warp Worker Referral for At rial fibrillation Please call patient to schedule an appointment. Thank you. Referring Physician: Rosemary Wilson [facility], Encounter Date: 07/13/2024 Results Created Date Observation Date Name Description Value Unit Range Abnormal Flag Note LastModifiedBy Organization Detail LastModifiedTime 07/06/1907/07/2023 BASIC METAB OLIC PANEL (8) glucose 163 mg/dL 70-99 above high normal Not Available [facility] ([facility]) [address] [place], [address], 07/07/2023 03:07:55 07/06/1907/07/2023 BASIC METAB OLIC PANEL (8) BUN 14 mg/dL 8-27 Not Available [facility] ([facility]) [address] [place], [address], 07/07/2023 03:07:55 07/06/19 24 07/07/2023 BASIC METAB OLIC PANEL (8) creatinine 1.31 mg/dL 0.76-1 .27 above high normal Not Available [facility] ([facility]) [address] [place], [address], 07/07/2023 03:07:55 07/06/1907/07/2023 BASIC METAB OLIC PANEL (8) eGFR 60 mL/mi n/1.7 3 >59 Not Available [facility] ([facility]) [address] [place], [address], 07/07/2023 03:07:55 07/06/1907/07/2023 BASIC METAB OLIC PANEL (8) BUN/creatini ne ratio 11 10-24 Not Available [facility] ([facility]) [address] [place], [address], 07/07/2023 03:07:55 07/06/19 07/07/2023 BASIC METAB OLIC PANEL (8) sodium 140 mmol/ L 134-14 4 Not Available [facility] ([facility]) [address] [place], [address], 07/07/2023 03:07:55 07/06/19 24 07/07/2023 BASIC METAB OLIC PANEL (8) potassium 4.7 mmol/ L 3.5-5. 2 Not Available [facility] ([facility]) [address] [place], [address], 07/07/2023 03:07:55 07/06/1907/07/2023 BASIC METAB OLIC PANEL (8) chloride 102 mmol/ L 96-106 Not Available [facility] ([facility]) [address] [place], [address], 07/07/2023 03:07:55 07/06/19 24 07/07/2023 BASIC METAB OLIC PANEL (8) carbon dioxide, total 22 mmol/ L 20-29 Not Available [facility] ([facility]) [address] [place], [address], 07/07/2023 03:07:55 07/06/19 24 07/07/2023 BASIC METAB OLIC PANEL (8) calcium 9.1 mg/dL 8.6-10 .2 Not Available [facility] ([facility]) [address] [place], [address], 07/07/2023 03:07:55 07/06/1907/07/2023 HEMOG LOBIN A1C hemoglobin A1C 8.3 % 4.8-5. 6 above high normal Predi abete s: 5.7 - 6.4 Diabe alvaro: >6.4 Glyce arturo contr ol for adult s with diabe alvaro: <7.0 Not Available [facility] ([facility]) [address] [place], [address], 07/07/2023 03:07:57 11/02/19 24 11/03/2023 CBC WITH DIFFE RENTI AL/PL ATELE T WBC 8.9 x10e3 /uL 3.4-10 .8 normal Not Available [facility] ([facility]) [address] [facility], [place], [address], 11/03/2023 08:29:30 11/02/19 24 11/03/2023 CBC WITH DIFFE RENTI AL/PL ATELE T RBC 4.74 x10e6 /uL 4.14-5 .80 normal Not Available [facility] ([facility]) [address] [place], [address], 11/03/2023 08:29:30 11/02/19 24 11/03/2023 CBC WITH DIFFE RENTI AL/PL ATELE T hemoglobin 13.9 g/dL 13.0-1 7.7 normal Not Available [facility] ([facility]) [address] [facility], [place], [address], 11/03/2023 08:29:30 11/02/19 24 11/03/2023 CBC WITH DIFFE RENTI AL/PL ATELE T hematocrit 42.7 % 37.5-5 1.0 normal Not Available [facility] ([facility]) [address] [place], [address], 11/03/2023 08:29:30 11/02/19 24 11/03/2023 CBC WITH DIFFE RENTI AL/PL ATELE T MCV 90 fL 79-97 normal Not Available [facility] ([facility]) [address] [place], [address], 11/03/2023 08:29:30 11/02/1911/03/2023 CBC WITH DIFFE RENTI AL/PL ATELE T MCH 29.3 pg 26.6-3 3.0 normal Not Available [facility] ([facility]) [address] [place], [address], 11/03/2023 08:29:30 11/02/19 24 11/03/2023 CBC WITH DIFFE RENTI AL/PL ATELE T MCHC 32.6 g/dL 31.5-3 5.7 normal Not Available [facility] ([facility]) [address] [facility], [place], [address], 11/03/2023 08:29:30 11/02/1911/03/2023 CBC WITH DIFFE RENTI AL/PL ATELE T RDW 15.8 % 11.6-1 5.4 above high normal Not Available [facility] ([facility]) [address] [facility], [place], [address], 11/03/2023 08:29:30 11/02/19 24 11/03/2023 CBC WITH DIFFE RENTI AL/PL ATELE T platelets 305 x10e3 /uL 150-45 0 normal Not Available [facility] ([facility]) [address] [facility], [place], [address], 11/03/2023 08:29:30 11/02/19 24 11/03/2023 CBC WITH DIFFE RENTI AL/PL ATELE T neutrophils 67 % not estab. normal Not Available [facility] ([facility]) [address] [facility], [place], [address], 11/03/2023 08:29:30 11/02/19 24 11/03/2023 CBC WITH DIFFE RENTI AL/PL ATELE T lymphs 24 % not estab. normal Not Available [facility] ([facility]) [address] [facility], [place], [address], 11/03/2023 08:29:30 11/02/19 24 11/03/2023 CBC WITH DIFFE RENTI AL/PL ATELE T monocytes 7 % not estab. normal Not Available [facility] ([facility]) [address] [facility], [place], [address], 11/03/2023 08:29:30 11/02/19 24 11/03/2023 CBC WITH DIFFE RENTI AL/PL ATELE T eos 1 % not estab. normal Not Available [facility] ([facility]) [address] [place], [address], 11/03/2023 08:29:30 11/02/19 24 11/03/2023 CBC WITH DIFFE RENTI AL/PL ATELE T basos 1 % not estab. normal Not Available [facility] ([facility]) [address] [facility], [place], [address], 11/03/2023 08:29:30 11/02/1911/03/2023 CBC WITH DIFFE RENTI AL/PL ATELE T immature cells SENIOR JAVA UI DEVELOPER Not Available [facility] ([facility]) [address] [place], [address], 11/03/2023 08:29:30 11/02/1911/03/2023 CBC WITH DIFFE RENTI AL/PL ATELE T neutrophils (absolute) 5.9 x10e3 /uL 1.4-7. 0 normal Not Available [facility] ([facility]) [address] [place], [address], 11/03/2023 08:29:30 11/02/19 24 11/03/2023 CBC WITH DIFFE RENTI AL/PL ATELE T lymphs (absolute) 2.1 x10e3 /uL 0.7-3. 1 normal Not Available [facility] ([facility]) [address] [place], [address], 11/03/2023 08:29:30 11/02/19 24 11/03/2023 CBC WITH DIFFE RENTI AL/PL ATELE T monocytes(ab solute) 0.6 x10e3 /uL 0.1-0. 9 normal Not Available [facility] ([facility]) [address] [place], [address], 11/03/2023 08:29:30 11/02/19 24 11/03/2023 CBC WITH DIFFE RENTI AL/PL ATELE T eos (absolute) 0.1 x10e3 /uL 0.0-0. 4 normal Not Available [facility] ([facility]) [address] [facility], [place], [address], 11/03/2023 08:29:30 11/02/19 24 11/03/2023 CBC WITH DIFFE RENTI AL/PL ATELE T baso (absolute) 0.1 x10e3 /uL 0.0-0. 2 normal Not Available [facility] ([facility]) [address] [facility], [place], [address], 11/03/2023 08:29:30 11/02/19 24 11/03/2023 CBC WITH DIFFE RENTI AL/PL ATELE T immature granulocytes 0 % not estab. Not Available [facility] ([facility]) [address] [facility], [place], [address], 11/03/2023 08:29:30 11/02/19 24 11/03/2023 CBC WITH DIFFE RENTI AL/PL ATELE T immature grans (abs) 0.0 x10e3 /uL 0.0-0. 1 Not Available [facility] ([facility]) [address] [facility], [place], [address], 11/03/2023 08:29:30 11/02/19 24 11/03/2023 CBC WITH DIFFE RENTI AL/PL ATELE T NRBC SENIOR JAVA UI DEVELOPER Not Available [facility] ([facility]) [address] [facility], [place], [address], 11/03/2023 08:29:30 11/02/1911/03/2023 CBC WITH DIFFE RENTI AL/PL ATELE T hematology comments: SENIOR JAVA UI DEVELOPER Not Available [facility] ([facility]) [address] [facility], [place], [address], 11/03/2023 08:29:30 11/02/19 24 11/03/2023 BASIC METAB OLIC PANEL (8) glucose 201 mg/dL 70-99 above high normal Not Available [facility] ([facility]) [address] [place], [address], 11/03/2023 08:29:31 11/02/19 24 11/03/2023 BASIC METAB OLIC PANEL (8) BUN 11 mg/dL 8-27 normal Not Available [facility] ([facility]) [address] [place], [address], 11/03/2023 08:29:31 11/02/1911/03/2023 BASIC METAB OLIC PANEL (8) creatinine 1.40 mg/dL 0.76-1 .27 above high normal Not Available [facility] ([facility]) [address] [place], [address], 11/03/2023 08:29:31 11/02/19 24 11/03/2023 BASIC METAB OLIC PANEL (8) eGFR 55 mL/mi n/1.7 3 >59 below low normal Not Available [facility] ([facility]) [address] [place], [address], 11/03/2023 08:29:31 11/02/19 24 11/03/2023 BASIC METAB OLIC PANEL (8) BUN/creatini ne ratio 8 10-24 below low normal Not Available [facility] ([facility]) [address] [place], [address], 11/03/2023 08:29:31 11/02/19 24 11/03/2023 BASIC METAB OLIC PANEL (8) sodium 138 mmol/ L 134-14 4 normal Not Available [facility] ([facility]) [address] [place], [address], 11/03/2023 08:29:31 11/02/19 24 11/03/2023 BASIC METAB OLIC PANEL (8) potassium 4.9 mmol/ L 3.5-5. 2 normal Not Available [facility] ([facility]) [address] [place], [address], 11/03/2023 08:29:31 11/02/19 24 11/03/2023 BASIC METAB OLIC PANEL (8) chloride 101 mmol/ L 96-106 normal Not Available [facility] ([facility]) [address] [place], [address], 11/03/2023 08:29:31 11/02/19 24 11/03/2023 BASIC METAB OLIC PANEL (8) carbon dioxide, total 22 mmol/ L 20-29 normal Not Available [facility] ([facility]) [address] [place], [address], 11/03/2023 08:29:31 11/02/19 24 11/03/2023 BASIC METAB OLIC PANEL (8) calcium 9.5 mg/dL 8.6-10 .2 normal Not Available [facility] ([facility]) [address] [place], [address], 11/03/2023 08:29:31 11/02/19 24 11/03/2023 HEPAT IC FUNCT ION PANEL (7) protein, total 6.6 g/dL 6.0-8. 5 normal Not Available [facility] ([facility]) [address] [place], [address], 11/03/2023 08:29:31 11/02/19 24 11/03/2023 HEPAT IC FUNCT ION PANEL (7) albumin 4.2 g/dL 3.9-4. 9 normal Not Available [facility] ([facility]) [address] [place], [address], 11/03/2023 08:29:31 11/02/19 24 11/03/2023 HEPAT IC FUNCT ION PANEL (7) bilirubin, total 0.2 mg/dL 0.0-1. 2 normal Not Available [facility] ([facility]) [address] [facility], [place], [address], 11/03/2023 08:29:31 11/02/19 24 11/03/2023 HEPAT IC FUNCT ION PANEL (7) bilirubin, direct <0.10 mg/dL 0.00-0 .40 Not Available [facility] ([facility]) [address] [place], [address], 11/03/2023 08:29:31 11/02/19 24 11/03/2023 HEPAT IC FUNCT ION PANEL (7) alkaline phosphatase 70 IU/L 44-121 normal Not Available [facility]) [address] [place], [address], 11/03/2023 08:29:31 11/02/19 24 11/03/2023 HEPAT IC FUNCT ION PANEL (7) AST (SGOT) 16 IU/L 0-40 normal Not Available [facility] ([facility]) [address] [facility], [place], [address], 11/03/2023 08:29:31 11/02/19 24 11/03/2023 HEPAT IC FUNCT ION PANEL (7) ALT (SGPT) 15 IU/L 0-44 normal Not Available [facility] ([facility]) [address] [place], [address], 11/03/2023 08:29:31 11/02/19 24 11/03/2023 LIPID PANEL cholesterol, total 117 mg/dL 100-19 9 normal Not Available [facility] ([facility]) [address] [place], [address], 11/03/2023 08:29:32 11/02/19 24 11/03/2023 LIPID PANEL triglyceride s 214 mg/dL 0-149 above high normal Not Available [facility] ([facility]) [address] [place], [address], 11/03/2023 08:29:32 11/02/19 24 11/03/2023 LIPID PANEL HDL cholesterol 33 mg/dL >39 below low normal Not Available [facility] ([facility]) [address] [place], [address], 11/03/2023 08:29:32 11/02/19 24 11/03/2023 LIPID PANEL VLDL cholesterol nehal 35 mg/dL 5-40 Not Available [facility] ([facility]) [address] [place], [address], 11/03/2023 08:29:32 11/02/19 24 11/03/2023 LIPID PANEL LDL chol calc ([facility]) 49 mg/dL 0-99 Not Available [facility] ([facility]) [address] [place], [address], 11/03/2023 08:29:32 11/02/19 24 11/03/2023 LIPID PANEL 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 Not Available [facility] ([facility]) [address] [place], [address], 11/03/2023 08:29:32 11/02/19 24 11/03/2023 HEMOG LOBIN A1C hemoglobin A1C 7.7 % 4.8-5. 6 above high normal Predi abete s: 5.7 - 6.4 Diabe alvaro: >6.4 Glyce arturo contr ol for adult s with diabe alvaro: <7.0 Not Available [facility] ([facility]) [address] [place], [address], 11/03/2023 08:29:32 11/02/19 24 11/03/2023 TSH TSH 2.640 uIU/m L 0.450- 4.500 normal Not Available [facility] ([facility]) [address] [place], [address], 11/03/2023 08:29:33 11/02/19 24 11/03/2023 PROST ATE-S PECIF IC AG prostate specific Ag 0.4 NG/mL 0.0-4. 0 normal Farheen ECLIA metho dolog y. Accor ding to the Ameri can [employer] g[employer] iatio n, Serum PSA shoul d decre ase and remai n at undet ectab le level s after radic al prost atect jean. The AUA defin es bioch emica l recur rence as an initi al PSA value 0.2 ng/mL or great er follo wed by a subse quent confi rmato ry PSA value 0.2 ng/mL or great er. Value s obtai imani with diffe rent assay metho ds or kits canno t be used inter peterson eably . Resul ts canno t be inter prete d as absol [place] evide nce of the prese nce or absen ce of lázaro valdez se. Not Available [facility] ([facility] [employer]) [address] [facility], [place], [address], 11/03/2023 08:29:33 11/02/1911/02/2023 AMBIG ABBRE V BMP8 DEFAU LT ambig abbrev BMP8 default Commen t A hand- writt en panel /prof ile was recei hernan from your offic e. In accor dance with the [facility] Ambig uous Test Code Polic y dated September 2002, we have compl eted your order by using the close st curre ntly or forme rly recog nized AMA panel . We have assig imani Basic Metab olic Panel (8), Test Code #32[address]. If this is not the testi ng you wishe d to recei ve on this speci men, pleas e conta ct the [facility] Clien t Inqui ry/Te chnic al Servi bobby Depar tment to ismael fy the test order . We appre ciate your busin ess. Not Available [facility] ([facility] [employer]) [address] [facility], [place], [address], 11/03/2023 08:29:34 11/02/1911/02/2023 AMBIG ABBRE V LP DEFAU LT ambig abbrev LP default COMMEN T A hand- writt en panel /prof jovon was recei hernan from your offic e. In accor dance with the [facility] Jonathan panchal Test Code Polic y dated September 2002, we have compl eted your order by using the close st curre ntly or forme rly recog nized AMA panel . We have assboo diallo Lipid Panel , Test Code #30[address]. If this is not the testi ng you wishe d to recei ve on this speci men, pleas e conta ct the [facility] Clien t Inqui ry/Te chnic al Servi bobby Depar tment to ismael fy the test order . We appre ciate your busin ess. Not Available [facility] ([facility]) [address] [facility], [place], [address], 11/03/2023 08:29:34 07/07/1907/07/2024 TSH+F REE T4 TSH 3.310 uIU/m L 0.450- 4.500 normal Not Available [facility] ([facility]) [address] [place], [address], 07/07/2024 09:44:56 07/07/1907/07/2024 TSH+F REE T4 T4,free(dire ct) 1.39 NG/dL 0.82-1 .77 normal Not Available [facility] ([facility]) [address] [place], [address], 07/07/2024 09:44:56 07/07/1907/07/2024 CBC WITH DIFFE RENTI AL/PL ATELE T WBC 11.8 x10e3 /uL 3.4-10 .8 above high normal Not Available [facility] ([facility]) [address] [place], [address], 07/07/2024 09:44:58 07/07/19 25 07/07/2024 CBC WITH DIFFE RENTI AL/PL ATELE T RBC 5.18 x10e6 /uL 4.14-5 .80 normal Not Available [facility] ([facility]) [address] [place], [address], 07/07/2024 09:44:58 07/07/19 25 07/07/2024 CBC WITH DIFFE RENTI AL/PL ATELE T hemoglobin 15.3 g/dL 13.0-1 7.7 normal Not Available [facility] ([facility]) [address] [place], [address], 07/07/2024 09:44:58 07/07/19 25 07/07/2024 CBC WITH DIFFE RENTI AL/PL ATELE T hematocrit 47.7 % 37.5-5 1.0 normal Not Available [facility] ([facility]) [address] [place], [address], 07/07/2024 09:44:58 07/07/19 25 07/07/2024 CBC WITH DIFFE RENTI AL/PL ATELE T MCV 92 fL 79-97 normal Not Available [facility] ([facility]) [address] [place], [address], 07/07/2024 09:44:58 07/07/19 25 07/07/2024 CBC WITH DIFFE RENTI AL/PL ATELE T MCH 29.5 pg 26.6-3 3.0 normal Not Available [facility] ([facility]) [address] [place], [address], 07/07/2024 09:44:58 07/07/19 25 07/07/2024 CBC WITH DIFFE RENTI AL/PL ATELE T MCHC 32.1 g/dL 31.5-3 5.7 normal Not Available [facility] ([facility]) [address] [place], [address], 07/07/2024 09:44:58 07/07/19 25 07/07/2024 CBC WITH DIFFE RENTI AL/PL ATELE T RDW 13.9 % 11.6-1 5.4 Not Available [facility] ([facility]) [address] [facility], [place], [address], 07/07/2024 09:44:58 07/07/19 25 07/07/2024 CBC WITH DIFFE RENTI AL/PL ATELE T platelets 297 x10e3 /uL 150-45 0 normal Not Available [facility] ([facility]) [address] [facility], [place], [address], 07/07/2024 09:44:58 07/07/19 25 07/07/2024 CBC WITH DIFFE RENTI AL/PL ATELE T neutrophils 71 % not estab. normal Not Available [facility] ([facility]) [address] [facility], [place], [address], 07/07/2024 09:44:58 07/07/19 25 07/07/2024 CBC WITH DIFFE RENTI AL/PL ATELE T lymphs 20 % not estab. normal Not Available [facility] ([facility]) [address] [facility], [place], [address], 07/07/2024 09:44:58 07/07/19 25 07/07/2024 CBC WITH DIFFE RENTI AL/PL ATELE T monocytes 7 % not estab. normal Not Available [facility] ([facility]) [address] [facility], [place], [address], 07/07/2024 09:44:58 07/07/19 25 07/07/2024 CBC WITH DIFFE RENTI AL/PL ATELE T eos 1 % not estab. normal Not Available [facility] ([facility]) [address] [facility], [place], [address], 07/07/2024 09:44:58 07/07/19 25 07/07/2024 CBC WITH DIFFE RENTI AL/PL ATELE T basos 1 % not estab. normal Not Available [facility] ([facility]) [address] [place], [address], 07/07/2024 09:44:58 07/07/19 25 07/07/2024 CBC WITH DIFFE RENTI AL/PL ATELE T immature cells SENIOR JAVA UI DEVELOPER Not Available [facility] ([facility]) [address] [place], [address], 07/07/2024 09:44:58 07/07/19 25 07/07/2024 CBC WITH DIFFE RENTI AL/PL ATELE T neutrophils (absolute) 8.5 x10e3 /uL 1.4-7. 0 above high normal Not Available [facility] ([facility]) [address] [place], [address], 07/07/2024 09:44:58 07/07/19 25 07/07/2024 CBC WITH DIFFE RENTI AL/PL ATELE T lymphs (absolute) 2.3 x10e3 /uL 0.7-3. 1 normal Not Available [facility] ([facility]) [address] [place], [address], 07/07/2024 09:44:58 07/07/19 25 07/07/2024 CBC WITH DIFFE RENTI AL/PL ATELE T monocytes(ab solute) 0.8 x10e3 /uL 0.1-0. 9 normal Not Available [facility] ([facility]) [address] [place], [address], 07/07/2024 09:44:58 07/07/19 25 07/07/2024 CBC WITH DIFFE RENTI AL/PL ATELE T eos (absolute) 0.1 x10e3 /uL 0.0-0. 4 normal Not Available [facility] ([facility]) [address] [place], [address], 07/07/2024 09:44:58 07/07/19 25 07/07/2024 CBC WITH DIFFE RENTI AL/PL ATELE T baso (absolute) 0.1 x10e3 /uL 0.0-0. 2 normal Not Available [facility] ([facility]) [address] [facility], [place], [address], 07/07/2024 09:44:58 07/07/19 25 07/07/2024 CBC WITH DIFFE RENTI AL/PL ATELE T immature granulocytes 0 % not estab. Not Available [facility] ([facility]) [address] [facility], [place], [address], 07/07/2024 09:44:58 07/07/19 25 07/07/2024 CBC WITH DIFFE RENTI AL/PL ATELE T immature grans (abs) 0.0 x10e3 /uL 0.0-0. 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 METAB OLIC PANEL (14) glucose 154 mg/dL 70-99 above high normal Not Available [facility] ([facility]) [address] [place], [address], 07/07/2024 09:44:59 07/07/19 25 07/07/2024 COMP. METAB OLIC PANEL (14) BUN 17 mg/dL 8-27 normal Not Available [facility] ([facility]) [address] [place], [address], 07/07/2024 09:44:59 07/07/19 25 07/07/2024 COMP. METAB OLIC PANEL (14) creatinine 1.49 mg/dL 0.76-1 .27 above high normal Not Available [facility] ([facility]) [address] [place], [address], 07/07/2024 09:44:59 07/07/19 25 07/07/2024 COMP. METAB OLIC PANEL (14) eGFR 51 mL/mi n/1.7 3 >59 below low normal Not Available [facility] ([facility]) [address] [facility], [address], 07/07/2024 09:44:59 07/07/19 25 07/07/2024 COMP. METAB OLIC PANEL (14) BUN/creatini ne ratio 11 10-24 normal Not Available [facility] ([facility]) [address] [place], [address], 07/07/2024 09:44:59 07/07/19 25 07/07/2024 COMP. METAB OLIC PANEL (14) sodium 139 mmol/ L 134-14 4 normal Not Available [facility] ([facility]) [address] [place], [address], 07/07/2024 09:44:59 07/07/19 25 07/07/2024 COMP. METAB OLIC PANEL (14) potassium 4.9 mmol/ L 3.5-5. 2 normal Not Available [facility] ([facility]) [address] [place], [address], 07/07/2024 09:44:59 07/07/19 25 07/07/2024 COMP. METAB OLIC PANEL (14) chloride 99 mmol/ L 96-106 normal Not Available [facility] ([facility]) [address] [place], [address], 07/07/2024 09:44:59 07/07/19 25 07/07/2024 COMP. METAB OLIC PANEL (14) carbon dioxide, total 22 mmol/ L 20-29 normal Not Available [facility] ([facility]) [address] [place], [address], 07/07/2024 09:44:59 07/07/19 25 07/07/2024 COMP. METAB OLIC PANEL (14) calcium 10.0 mg/dL 8.6-10 .2 normal Not Available [facility] ([facility]) [address] [place], [address], 07/07/2024 09:44:59 07/07/19 25 07/07/2024 COMP. METAB OLIC PANEL (14) protein, total 7.2 g/dL 6.0-8. 5 normal Not Available [facility] ([facility]) [address] [place], [address], 07/07/2024 09:44:59 07/07/19 25 07/07/2024 COMP. METAB OLIC PANEL (14) albumin 4.4 g/dL 3.9-4. 9 normal Not Available [facility] ([facility]) [address] [place], [address], 07/07/2024 09:44:59 07/07/19 25 07/07/2024 COMP. METAB OLIC PANEL (14) globulin, total 2.8 g/dL 1.5-4. 5 Not Available [facility] ([facility]) [address] [place], [address], 07/07/2024 09:44:59 07/07/19 25 07/07/2024 COMP. METAB OLIC PANEL (14) bilirubin, total 0.4 mg/dL 0.0-1. 2 normal Not Available [facility] ([facility]) [address] [place], [address], 07/07/2024 09:44:59 07/07/19 25 07/07/2024 COMP. METAB OLIC PANEL (14) alkaline phosphatase 73 IU/L 44-121 normal Not Available [facility] ([facility]) [address] [place], [address], 07/07/2024 09:44:59 07/07/19 25 07/07/2024 COMP. METAB OLIC PANEL (14) AST (SGOT) 15 IU/L 0-40 normal Not Available [facility] ([facility]) [address] [place], [address], 07/07/2024 09:44:59 07/07/19 25 07/07/2024 COMP. METAB OLIC PANEL (14) ALT (SGPT) 17 IU/L 0-44 normal Not Available [facility] ([facility]) [address] [place], [address], 07/07/2024 09:44:59 07/07/19 25 07/07/2024 LIPID PANEL cholesterol, total 118 mg/dL 100-19 9 normal Not Available [facility] ([facility]) [address] [place], [address], 07/07/2024 09:45:00 07/07/19 25 07/07/2024 LIPID PANEL triglyceride s 181 mg/dL 0-149 above high normal Not Available [facility] ([facility]) [address] [place], [address], 07/07/2024 09:45:00 07/07/19 25 07/07/2024 LIPID PANEL HDL cholesterol 33 mg/dL >39 below low normal Not Available [facility] ([facility]) [address] [place], [address], 07/07/2024 09:45:00 07/07/19 25 07/07/2024 LIPID PANEL VLDL cholesterol nehal 30 mg/dL 5-40 Not Available [facility] ([facility]) [address] [place], [address], 07/07/2024 09:45:00 07/07/19 25 07/07/2024 LIPID PANEL LDL chol [facility]) 55 mg/dL 0-99 Not Available [facility]) [address] [facility], [place], [address], 07/07/2024 09:45:00 07/07/19 25 07/07/2024 LIPID PANEL 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 Not Available [facility] ([facility]) [address] [facility], [place], [address], 07/07/2024 09:45:00 07/07/19 25 07/07/2024 HCV ANTIB ARCELIA RFX TO QUANT PCR HCV Ab NON REACTI VE non reacti ve Not Available [facility] ([facility]) [address] [facility], [place], [address], 07/07/2024 09:45:01 07/07/19 25 07/07/2024 HCV ANTIB ARCELIA RFX TO QUANT PCR interpretati on: COMMEN T Not infec jyoti with HCV unles s early or acute infec tion is suspe cted (whic h may be delay ed in an immun ocomp romis ed indiv idual ), or other evide nce exist s to indic ate HCV infec tion. Not Available [facility] ([facility]) [address] [facility], [place], [address], 07/07/2024 09:45:01 07/07/1907/07/2024 HEMOG LOBIN A1C hemoglobin A1C 8.7 % 4.8-5. 6 above high normal Predi abete s: 5.7 - 6.4 Diabe alvaro: >6.4 Glyce arturo contr ol for adult s with diabe alvaro: <7.0 Not Available [facility] ([facility]) [address] [facility], [place], [address], 07/07/2024 09:45:02 10/18/19 25 10/18/2024 HEMOG LOBIN A1C hemoglobin A1C 7.0 % 4.8-5. 6 above high normal Predi abete s: 5.7 - 6.4 Diabe alvaro: >6.4 Glyce arturo contr ol for adult s with diabe alvaro: <7.0 Not Available [facility] ([facility]) [address] [facility], [place], [address], 10/18/2024 06:15:42 Result Notes None recorded. Problems Name Problem SNOMED Code Status Onset Date Resolution Date Notes Provider Name and Address Organization Details Recorded Time Hypertensi ve disorder 78248219 Active Not Available [facility] 19:52:18 Hypothyroi dism 33998989 Active Caty Baez APRN [address], [place], [address] , [facility] 14:57:24 Polyneurop athy 11055220 Active Caty Baez APRN [address], [place], [address] , [facility] 4 14:57:39 Atrial fibrillati on 65816854 Active Caty Baez APRN [address], [place], [address] , [facility] 4 14:56:38 Coronary arterioscl erosis 98600763 Active Caty Baez APRN [address], [place], [address] , [facility] 4 14:56:57 Chronic kidney disease 196899015 Active Caty Baez APRN [address], [place], [address] , [facility] [employer] [facility] 4 14:56:43 Diabetes mellitus [id number] Eli Baez APRN [address], [place], [address] , [facility] [employer] [facility] 4 14:56:59 Dyspnea on exertion 83656824 Active 2022 Not Available [facility] 4 19:52:18 Chronic cough 25621005 Active 2022 Caty Baez APRN [address], [place], [address] , [facility] 4 14:56:40 Essential hypertensi on 21221166 Active 2022 Caty Baez APRN [address], [place], [address] , [facility] 4 14:57:06 Cigarette smoker 57393300 Active 2022 Not Available [facility] 19:52:18 Bilateral earache 765929539 Active 2022 Not Available [facility] 4 19:52:18 Pain in throat 463443590 Active 2022 Not Available [facility] 4 19:52:18 Coronary atheroscle rosis 515598255 Active 2022 Caty Baez APRN [address], [place], [address] , [facility] 4 14:57:03 Congestive heart failure 08657748 Active [address], [place], [address] , [employer] 4 14:56:54 Chronic obstructiv e pulmonary disease 05927641 Active [address], [place], [address] , [facility] 4 14:56:51 Gastroesop hageal reflux disease 783506732 Active 2022 Caty Baez APRN [address], [place], [address] , [place] [facility] 4 14:57:09 Hyperlipid emia 29094442 Active 2022 Caty Baez APRN [address], [place], [address] , [place] [facility] 4 14:57:12 Obstructiv e sleep apnea syndrome 97523445 Active 2023 Caty Baez APRN [address], [place], [address] , [place] [facility] 4 14:57:42 Abscess of oral tissue 70186779 Active 2023 Olinda Trujillo MD [address], [place], [address] , [place] [facility] 4 18:18:00 Serum creatinine above reference range 536328079 Active 2023 MARKEL Hodges [address], [place], [address] , [facility] 4 16:19:09 Nicotine dependence 89356446 Active 2023 MARKEL Hodges [address], [place], [address] , [facility] 4 15:33:35 Pain of bilateral knee joints 9043725957465 04 Active 2023 Caty Baez APRN [address], [place], [address] , [facility] 4 11:17:59 Amnesia 63089847 Active 2023 Caty Baez APRN [address], [place], [address] , [place] [facility] 4 15:18:33 Post-traum atic stress disorder 46134530 Active 2023 Caty Baez APRN [address], [place], [address] , [place] [facility] 4 15:19:03 Muscle weakness 12791576 Active 2024 MARKEL Hodges [address] [facility], [place], [address] , [facility] 5 15:46:45 Memory impairment 081897159 Active 2024 Rosemary MARKEL Wilson [address], [place], [address] , [facility] 5 11:32:20 Problem Notes None recorded. Procedures Surgical History Date Name Laterality Status Provider Name and Address Organization Details Recorded Time Cardiac Stent Placement completed Ida Solano MA [facility] 07/13/2024 15:40:23 Imaging Results None recorded. Procedure Notes None recorded. Medical Equipment None Reported. Allergies Allergen ID Allergen Name Allergen Category Reaction Reaction Severity Criticality Documentation Date Start Date Code Code System Note Provider Name and Address Organization Details Recorded Time 65026 Substance with sulfonami de structure and antibacte rial mechanism of action (substanc e) medicatio n Not available Not available Not available 05/20/2022 67256 8003 SNOMED Not Available [facility] 3 10:50:09 99403 niacin medicatio n Not available Not available Not available 05/20/2022 7393 RxNorm Not Available [facility] 3 10:50:09 86609 lactose food,medi cation Not available Not available Not available 05/20/2022 6211 RxNorm Not Available [facility] 3 10:50:10 Medications Name Sig Start Date Stop Date Status Note LastModified by Organization Details LastModified Time furosemide 40 mg tablet TAKE 1 TABLET BY MOUTH DAILY 07/13 completed Not Available Not Available Not Available metformin 500 mg tablet 06/10 completed Not Available Not Available Not Available bupropion HCl SR 150 mg tablet,12 hr sustained- release TAKE 1 TABLET BY MOUTH DAILY IN THE MORNING active Not Available Not Available No t Available doxycyclin e hyclate 100 mg capsule TAKE 1 CAPSULE BY MOUTH TWICE DAILY active Not Available Not Available No t Available ipratropiu m 0.5 mg-albuter ol 3 mg (2.5 mg base)/3 mL nebulizati on soln USE 3 ML VIA NEBULIZE R FOUR TIMES DAILY NEEDED active Not Available Not Available No t Available trazodone 50 mg tablet TAKE 1 TABLET BY MOUTH EVERY DAY AT BEDTIME FOR 14 DAYS 02/14 completed Not Available Not Available Not Available metoprolol tartrate 100 mg tablet Take 1 tablet every day by oral route. 12/15 completed Not Available Not Available Not Available Diphenhydr amine HCl (Sleep) 25 mg tablet Take 1 tablet twice a day by oral route as needed. 2021 active Not Available Not Available Not Avai lable glipizide ER 10 mg tablet, extended release 24 hr TAKE 1 TABLET BY MOUTH EVERY DAY 02/22 completed Not Available Not Available Not Available prednisone 20 mg tablet Take 2 tablets every day by oral route for 5 days. active Not Available Not Available No t Available clonazepam 0.5 mg tablet TAKE 1 TABLET BY MOUTH TWICE DAILY active Not Available Not Available No t Available clonazepam 1 mg tablet 02/14 completed Not Available Not Available Not Available glipizide ER 5 mg tablet, extended release 24 hr TAKE 1 TABLET BY MOUTH EVERY DAY 07/13 completed Not Available Not Available Not Available acetaminop hen 300 mg-codeine 15 mg tablet TAKE 1 TO 2 TABLETS BY MOUTH EVERY 4 HOURS NEEDED 07/13 completed Not Available Not Available Not Available aspirin 81 mg tablet,del ayed release Take 1 tablet every day by oral route. 07/13 completed Not Available Not Available Not Available amoxicilli n 500 mg tablet 02/14 completed Not Available Not Available Not Available risperidon e 2 mg tablet 06/10 completed Not Available Not Available Not Available alprazolam 0.5 mg tablet TAKE 1 TABLET BY MOUTH TWICE DAILY DIRECTED 03/06 completed Not Available Not Available Not Available amoxicilli n 875 mg tablet TAKE 1 TABLET BY MOUTH TWICE DAILY 10/17 completed Not Available Not Available Not Available magnesium oxide 400 mg (241.3 mg magnesium) tablet TAKE 1 TABLET BY MOUTH TWICE DAILY active Not Available Not Available No t Available trazodone 100 mg tablet active Not Available Not Available Not Available OneTouch Ultra Test strips USE TO TEST BLOOD SUGAR FOUR TIMES DAILY active Not Available Not Available No t Available cephalexin 500 mg capsule TAKE 1 CAPSULE BY MOUTH EVERY 12 HOURS FOR 7 DAYS active Not Available Not Available No t Available pantoprazo le 40 mg tablet,del ayed release TAKE 1 TABLET BY MOUTH DAILY 2024 active Not Available Not Available Not Avai lable metformin 1,000 mg tablet TAKE 1 AND 1/2 TABLETS BY MOUTH IN THE MORNING AND 1 TABLET IN THE EVENING 02/22 completed Not Available Not Available Not Available prednisone 50 mg tablet TAKE 1 TABLET BY MOUTH DAILY 07/13 completed Not Available Not Available Not Available losartan 25 mg tablet TAKE 1/2 TABLET BY MOUTH DAILY 07/13 completed Not Available Not Available Not Available metoprolol tartrate 50 mg tablet TAKE 1 TABLET BY MOUTH EVERY 12 HOURS 08/14 completed Not Available Not Available Not Available gabapentin 300 mg capsule Take 1 capsule 3 times a day by oral route for 90 days. 2024 active Not Available Not Available Not Avai lable diclofenac sodium 75 mg tablet,del ayed release TAKE 1 TABLET BY MOUTH TWICE DAILY FOR 7 DAYS 02/22 completed Not Available Not Available Not Available hydroxyzin e HCl 25 mg tablet TAKE 1 TABLET BY MOUTH TWICE DAILY active Not Available Not Available No t Available pravastati n 20 mg tablet TAKE 1 TABLET BY MOUTH DAILY active Not Available Not Available No t Available mupirocin 2 % topical ointment APPLY GRAM TOPICALL Y TO THE AFFECTED AREA THREE TIMES DAILY FOR 7 DAYS active Not Available Not Available No t Available digoxin 125 mcg (0.125 mg) tablet TAKE 1 TABLET BY MOUTH EVERY MORNING 07/13 completed Not Available Not Available Not Available diazepam 10 mg tablet 02/14 completed Not Available Not Available Not Available albuterol sulfate HFA 90 mcg/actuat ion aerosol inhaler INHALE 2 PUFFS BY MOUTH EVERY 4 TO 6 HOURS NEEDED active Not Available Not Available No t Available paroxetine 40 mg tablet TAKE 1 TABLET BY MOUTH DAILY IN THE MORNING active Not Available Not Available No t Available diltiazem 60 mg tablet TAKE 1 TABLET BY MOUTH EVERY 12 HOURS active Not Available Not Available No t Available risperidon e 1 mg tablet 06/10 completed Not Available Not Available Not Available diazepam 5 mg tablet Take 1 tablet 30 minutes before procedur e 02/22 completed Dental appts only Not Available Not Available Not Available amoxicilli n 875 mg-potassi um clavulanat e 125 mg tablet TAKE 1 TABLET BY MOUTH TWICE DAILY FOR 10 DAYS 02/14 completed Not Available Not Available Not Available nicotine 7 mg/24 hr daily transderma l patch Apply 1 patch every day by transder mal route. 2024 active Not Available Not Available Not Avai lable neomycin-p olymyxin-h ydrocort 3.5 mg-10,000 unit/mL-1 % ear drops,susp active Not Available Not Available N ot Available metoprolol tartrate 25 mg tablet Take 1 tablet twice a day by oral route. 2024 active Not Available Not Available Not Avai lable Januvia 100 mg tablet TAKE 1 TABLET BY MOUTH DAILY active Not Available Not Available No t Available paliperido ne ER 6 mg tablet,ext ended release 24 hr TAKE 1 TABLET BY MOUTH DAILY IN THE MORNING active Not Available Not Available No t Available paliperido ne ER 3 mg tablet,ext ended release 24 hr TAKE 1 TABLET BY MOUTH DAILY IN THE MORNING active Not Available Not Available No t Available cholecalci ferol (vit D3)(bulk) 1 PO QD 2021 active Not Available Not Available Not Avai lable loratadine 10 mg capsule Take 1 capsule every day by oral route. 07/13 completed Not Available Not Available Not Available Eliquis 5 mg tablet TAKE 1 TABLET BY MOUTH TWICE DAILY active Not Available Not Available No t Available Invokana 100 mg tablet TAKE 1 TABLET BY MOUTH DAILY 2024 active Not Available Not Available Not Avai lable Jardiance 25 mg tablet TAKE 1 TABLET BY MOUTH EVERY DAY active Not Available Not Available No t Available Entresto 24 mg-26 mg tablet TAKE 1 TABLET BY MOUTH EVERY 12 HOURS 07/13 completed Not Available Not Available Not Available Vitamin B12 1 PO QD 2021 active Not Available Not Available Not Avai lable Trelegy Ellipta 100 mcg-62.5 mcg-25 mcg powder for inhalation INHALE ONE PUFF BY MOUTH EVERY MORNING. RINSE MOUTH AFTER EACH USE 2024 active Not Available Not Available Not Avai lable melatonin 3 mg capsule Take 1 capsule every day by oral route at bedtime. 08/04 completed Not Available Not Available Not Available Rybelsus 7 mg tablet Take 1 tablet every day by oral route. 2024 active Not Available Not Available Not Avai lable Rybelsus 3 mg tablet Take 1 tablet(s ) every day by oral route. active Not Available Not Available No t Available Vitals Date Recorded Body height Body mass index (BMI) Body weight Body temperature Heart rate Oxygen saturation Oxygen saturation in Arterial blood by Pulse oximetry Systolic And Diastolic Provider Name and Address Organization Details Last Updated DateTime 4 177.8 cm 42.6 kg/m2 899437. 93 g 98 [degF] 120 /min 97 % 97 % 136/80 mm[Hg] Karina Humphries RN [facility] [employer] [facility] 4 15:35:51 Date Recorded Body height Body mass index (BMI) Body weight Body temperature Heart rate Oxygen saturation Oxygen saturation in Arterial blood by Pulse oximetry Pain severity - 0-10 verbal numeric rating [Score] - Reported Systolic And Diastolic Provider Name and Address Organization Details Last Updated DateTime 5 177.8 cm 42.2 kg/m2 745661. 16 g 97.7 [degF] 93 /min 97 % 97 % 0 130/78 mm[Hg] Ida Solano MA [facility] [employer] [facility] 5 15:39:37 Date Recorded Body height Body mass index (BMI) Body weight Body temperature Heart rate Oxygen saturation Oxygen saturation in Arterial blood by Pulse oximetry Systolic And Diastolic Provider Name and Address Organization Details Last Updated DateTime 5 177.8 cm 42.3 kg/m2 405678. 75 g 97.8 [degF] 96 /min 96 % 96 % 130/80 mm[Hg] GEOFF Franco [facility] [employer] [facility] 5 15:42:21 Date Recorded Body height Body mass index (BMI) Body weight Body temperature Heart rate Oxygen saturation Oxygen saturation in Arterial blood by Pulse oximetry Systolic And Diastolic Provider Name and Address Organization Details Last Updated DateTime 4 177.8 cm 43.8 kg/m2 655917. 67 g 98 [degF] 135 /min 95 % 95 % 140/80 mm[Hg] Karina Humphries RN [facility] [employer] [facility] 4 16:05:15 Date Recorded Body height Body mass index (BMI) Body weight Body temperature Heart rate Oxygen saturation Oxygen saturation in Arterial blood by Pulse oximetry Systolic And Diastolic Provider Name and Address Organization Details Last Updated DateTime 4 177.8 cm 44.5 kg/m2 636770. 63 g 96.9 [degF] 107 /min 96 % 96 % 130/84 mm[Hg] Luz Walsh RN [facility] [email or web address] 14:42:04 Social History Question Answer Notes LastModified by Organizat ion Details LastModified Time Tobacco Smoking Status Current Every Day Smoker Elza Micky baker [place] [employer] 11/16/2022 14:54:02 Do You Have An Advance Directive? No Information not available 02/15/2024 What Is Your Level Of Caffeine Consumption? Occasional [id number] Information not available 05/20/2022 How Much Tobacco Do You Chew? None Information not available 02/15/2024 In The 14 Days Before Symptom Onset, Have You Had Close Contact With A Laboratory-confir med COVID-19 While That Case Was Ill? No [email or web address] Information not available 11/16/2022 In The 14 Days Before Symptom Onset, Have You Had Close Contact With A Person Who Is Under Investigation For COVID-19 While That Person Was Ill? No [email or web address] Information not available 11/16/2022 What Type Of Diet Are You Following? REGULAR [id number] Information not available 05/20/2022 What Was The Date Of Your Most Recent Tobacco Screening? 07/13/2024 [email or web address] Information not available 07/13/2024 What Is Your Relationship Status? Information not available 02/15/2024 Do You Use Your Seat Belt Or Car Seat Routinely? Yes [email or web address] Information not available 11/16/2022 At What Age Did You Start Smoking Tobacco? 20 [email or web address] Information not available 11/16/2022 How Much Tobacco Do You Smoke? 2 PPD [id number] Information not available 05/20/2022 Do You Participate In Social Media? No [email or web address] Information not available 11/16/2022 Has Tobacco Cessation Counseling Been Provided? No [email or web address] Information not available 11/16/2022 How Many Years Have You Smoked Tobacco? 47 Information not available 11/16/2022 Have You Recently Traveled Abroad? No Information not available 11/16/2022 Do You Have Any Dietary Restrictions? No [email or web address] Information not available 11/16/2022 How Many Years Have You Used Smokeless Tobacco? 0 Information not available 02/15/2024 Sex: Unknown Functional Status Question Answer Note LastModified by Organizat ion Details LastModified Time Do you use any illicit or recreational drugs? No [email or web address] Information not available 11/16/2022 Do you or have you ever used any other forms of tobacco or nicotine? No Information not available 11/16/2022 What is your level of alcohol consumption? None [id number] Information not available 05/20/2022 Do you or have you ever used smokeless tobacco? Never used smokeless tobacco Information not available 02/15/2024 What is your exercise level? Moderate Information not available 02/15/2024 Mental Status Question Answer Note LastModified by Organization D etails LastModified Time Do you feel stressed (tense, restless, nervous, or anxious, or unable to sleep at night)? [id number] [email or web address] Information not available 11/16/2022 Family History Relationship Description Onset Age of this Age Resolved Age Notes LastModified by Organization Details LastModified Time Mother Depressive disorder [id number] Not available 05/20/2022 10:42:40 Mother Hypertensive disorder [id number] Not available 05/20/2022 10:42:40 Mother Diabetes mellitus [id number] Not available 05/20/2022 10:42:40 Mother Arthritis frivastorres Not avai lable 07/13/2024 15:29:37 Mother Hypercholest erolemia Not available 2023 11:13:17 Mother Disorder of thyroid gland Not available 2023 11:13:17 Mother Anxiety disorder Not available 2023 11:13:17 Mother Mental disorder Not available 2023 11:13:17 Father Alcoholism frivastorres Not concepción ilable 07/13/2024 15:29:37 Unspecified Relation Alcoholism siblin g frivastorres Not available 07/13/2024 15:29:37 Unspecified Relation Alcoholism keila molina frivastorres Not available 07/13/2024 15:29:37 Sister Hypertensive disorder Not available 2023 11:13:17 Medical History No medical history recorded. Immunizations Vaccine Type Date Status Note Provider Nam e and Address Organization Details Recorded Time COVID-19, mRNA, LNP-S, PF, 30 mcg/0.3 mL dose 1 completed Caty Baez APRN [address], [place], [address], [employer] 02/15/2024 11:12:14 COVID-19, mRNA, LNP-S, PF, 30 mcg/0.3 mL dose 1 completed Caty Baez APRN [address], [address], [place], [address], [employer] 02/15/2024 11:12:14 Pneumococcal conjugate PCV20, polysaccharide [id number] conjugate, adjuvant, PF 2 completed Caty Baez APRN [address], [place], [address], [employer] 02/15/2024 11:12:14 COVID-19, mRNA, LNP-S, PF, 30 mcg/0.3 mL dose, eben-sucrose 2 completed Caty Baez APRN [address], [place], [address], [employer] 02/15/2024 11:12:14 RSV, recombinant, protein subunit RSVpreF, adjuvant reconstituted, 0.5 mL, PF 4 completed Caty Baez APRN [address], [place], [address], [employer] 02/15/2024 11:12:14 Influenza, split virus, quadrivalent, PF 1 completed Caty Baez APRN [address], [place], [address], [employer] 02/15/2024 11:12:14 Influenza, high-dose, quadrivalent, PF 4 completed Olinda Trujillo MD [address], [address], [employer] 04/20/2023 18:37:51 Past Encounters Encounter ID Performer Location Encounter Start Date Encounter Closed Date Diagnosis/Indication Diagnosis SNOMED-CT Code Diagnosis ICD10 Code Diagnosis IMO Codes Diagnosis Note [id number] CAMRON Mcfarlane [facility] Primary [facility] [address] [place] [address] [address] [place] [address] 12/15/2021 00:00:00 12/15/2021 18:18:14 [id number] CAMRON Mcfarlane [facility] Primary Care [facility] [address] [place] [address] [address] [place] [address] 02/02/2022 00:00:00 02/02/2022 17:58:01 [id number] Olinda Trujillo MD [facility] Primary Care [facility] [address] [place] [address] [address] [place] [address] 03/20/2022 00:00:00 03/20/2022 19:51:25 [id number] Marie Marinelli [facility] Pulmonolo gy [place] [address] [place] [address] 05/01/2022 00:00:00 05/01/2022 16:05:17 [id number] CAMRON Mcfarlane [facility] Primary Care [facility] [address] [place] [address] [address] [place] [address] 05/22/2022 15:30:07 05/22/2022 16:14:48 Atrial fibrillation 28698086 I48.91 He is tachycardi c at visit. Continue follow-up with cardiologi . Additional testing has been completed, awaiting follow-up to review results. Advised to sign record of release to get results to us as well at next visit. Essential hypertension 11212528 I10 Repeat BP 142/90.Adv ised to continue to monitor at home with blood pressure readings. Cigarette smoker 9274540 7 F17.210 2ppd for at least 40 years.Enco uraged smoking cessation. Bilateral earache 389080 003 H92.03 Most likely turning chronic from smoking.Dr montenegro did provide relief last time, requesting again. Pain in throat 859589550 R07.0 Chronic. Advised to continue otc/at home remedies. Smoking cessation. [id number] CAMRON Mcfarlane [facility] Primary Care [address] [place] [address] 06/15/2022 15:27:22 06/16/2022 16:28:07 Coronary atherosclerosis 447075881 I25.10 Continue current medication s; follow-up with cardiology Congestive heart failure 55215255 I50.9 CT showed pulmonary edema, was advised to continue diuretics, entresto, jardiance, lasix and metoprolol per cardiology .Continue f/u with cardiology (followed by Dr. Juarez inpatient) . Chronic ob structive pulmonary disease 76668438 J44.9 Had home oxygen evaluation and did not need O2 on discharge. CXR did not show any signs of pneumonia but due to infiltrate s and COPD he was given abx treatment. Continue f/u with pulmonolog y. [id number] CAMRON Mcfarlane [facility] Primary Care [address] [place] [address] 07/03/2022 14:52:24 07/03/2022 16:09:13 Polyneuropathy 20567135 G62.9 Bilateral hands and feet.Start Gabapentin 300mg TID. 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 Congestive heart failure 29638845 I50.9 He had f/u with cardiology , Dr. Juarez about 2 weeks ago. Continue regular follow-up. [id number] CAMRON Mcfarlane [facility] Primary Care [address] [place] [address] 08/04/2022 14:52:48 08/04/2022 16:40:42 Essential hypertension 27533153 I10 Improved.D iscussed healthy eating and continuing to work on decreasing sodium.Adv ised to continue to monitor at home with blood pressure readings and work on diet.Bring BP log to each visit. Polyneuropathy 80008252 G62.9 Bilateral hands and feet. Improved.C ontinue Gabapentin 300mg TID. Congestive heart failure 75217358 I50.9 Continue f/u with Dr. Juarez. [id number] Olinda Trujillo MD [facility] Primary Care [facility] [address] [facility] [address] [place] [address] 11/16/2022 14:53:45 11/16/2022 15:24:00 Diabetes mellitus 27573826 E11.9 in excellent yqurncot6k 6.6continu e diet changesrep eat labs in 3 months Essential hypertension 52908414 I10 in good controlcut back ramen noodles to twice per week Hypothyroidism 71391182 E03.9 TSH normalrepe at labs in 3 months Hyperlipidemia 88617718 E78.5 Z79.899 In good control [id number] Olinda Trujillo MD [facility] Primary Care [facility] [address] [facility] [address] [place] [address] 04/07/2023 15:00:18 04/07/2023 16:01:08 Diabetes mellitus 03486280 E11.9 in excellent ofajauxg4a 6.6continu e diet changesrep eat labs in 3 months update 04/07/23: a1c increased to 8.7glipizi de Er 5 mg dailywork on diet changesf/u in 3 months Administra tion of influenza vaccine 91808143 Z23 [id number] Olinda Trujillo MD [facility] Primary Care [facility] [address] [facility] [address] [place] [address] 07/08/2023 15:27:04 07/08/2023 16:14:47 Diabetes mellitus 75912225 E11.9 in excellent syetnkhg0g 6.6continu e diet changesrep eat labs in 3 months update 04/07/23: a1c increased to 8.7glipizi de Er 5 mg dailywork on diet changesf/u in [address] Weathers refer for diabetic eye examincrea se glipizide ER 10 mg dailyf/u in 3 months Obstructiv e sleep apnea syndrome 78484880 G47.33 will contact IV and respirator y care about getting settings adjusted Essential hypertension 32113450 I10 in good controlcut back ramen noodles to twice per week Hypothyroidism 13987026 E03.9 TSH normalrepe at labs in 3 months Hyperlipidemia 51134986 E78.5 Z79.899 In good control Screening for malignant neoplasm of prostate 796277385 Z12.5 [id number] MARKEL Hodges [facility] Primary Care [facility] [address] [place] [address] 11/08/2023 15:56:53 11/08/2023 16:18:07 Diabetes mellitus 83286956 E11.9 A1c 7.7 in October1c 8.3 in Juneontin ue medication s, follow up in 3 months. Serum crea tinine above reference range 347789354 R79.89 [id number] Jeri colbert MD [facility] Primary Care [facility] [address] [place] [address] 02/23/2024 14:33:08 02/23/2024 15:58:22 Pain of bilateral knee joints [id number] 52530 M25.561 M25.562 Diabetes mellitus 597402 09 E11.9 Hyperlipidemia 13562699 E78.5 Z79.899 Hepatitis C screening 41 2610312 Z11.59 Screening for malignant neoplasm of colon 141574092 Z12.11 [id number] MARKEL Hodges [facility] Primary Care [facility] [address] [place] [address] 07/13/2024 15:28:06 07/13/2024 16:21:12 Muscle weakness 43424683 M62.81 Will refer to physical therapy as listed below.Disc ussed daily exercise to help improve strength. Atrial fibrillation 4943 6004 I48.91 Will refill meds as listed below.Rosalie ent aware to check pulse at least once daily and contact office in one week with readings.D iscussed medication compliance . Diabetes mellitus 716537 09 E11.9 A1c 7.7 in October1c 8.3 in June 2023 Body mass index 40+ - severely obese 287989403 Z68.41 Weight: 294 poundsBMI: 42.2Discus sed healthy diet and routine exercise.P atient verbalized understand ing to increased fresh fruits and vegetables as well as protein. [id number] MARKEL Hodges [facility] Primary Care [facility] [address] [facility] [address] [place] [address] 10/17/2024 15:22:28 10/17/2024 16:16:48 Diabetes mellitus 52387682 E11.9 A1c 8.7 in June 7.7 in October 8.3 in June 2023 Health Concerns Section Related Observation LastModified by Organization Detai ls LastModified Time None Recorded Concern Status LastModified by Organization Details LastModified Time None Recorded Advance Directives Directive N: Payers Insurance Date Sequence Insurance Name Policy Number Policy Reed Covered Member ID Reed Member ID Guarantor Name 10/14/2024 1 [facility] (MEDICARE REPLACEMENT HMO) [id number] Dionicio Cristobaljesse [id number] Cas Hagjesse 07/13/2024 2 [facility] Cas Ruiz [id number] Cas Hagjesse 10/14/2024 2 [employer] ( - MEDICARE SUPPLEMENT) Cas Hagjesse [id number] Cas Hagjesse Notes Date Note Type Note Provider Name and Address Organization Details Recorded Time 07/08/2023 text/html ROS as noted in the HPI here for f/u, a1c increased to 8.7 diet not as good. No chest pain or sob. Olinda Trujillo MD [address] [place] [address], [place], [address], [facility] [email or web address] 08/08/2023 16:43:33 11/08/2023 text/html ROS as noted in the HPI Patient is a 68 year old male that presents to the office to follow up on diabetes medications. Patient reports he is doing well and has no concerns. Patient continues to work on healthy diet and routine exercise. Denies chest pain and shortness of breath, nausea vomiting and diarrhea. MARKEL Hodges [address], [place], [address], [employer] 11/08/2023 16:22:25 02/23/2024 text/html Dionicio presents today for knee pain. He states that he feels that his knees are weak and would like an electric bicycle. I told him that was not an option. He was able to ambulate in the room without assistance, gait steady. He states that he has had several falls that he prevented by catching himself. Caty Baez APRN [address], [place], [address], [employer] 02/23/2024 15:32:42 07/13/2024 text/html ROS as noted in the HPI Patient is a 69 year old male that presents to the office for follow up. Patient is accompanied by caregiver, Love. Patient reports increased weakness, states I feel like my bones are giving out when I walk. Patient denies numbness and tingling in lower extremities. Patient has not been to [facility] in several years because he does not like the way he looks. Patient reports going to the [facility] brings back memories of his past so he chooses not to go. Patient would like a referral for a new female [facility]. MARKEL Hodges [address], [place], [address], [employer] 07/16/2024 21:36:42 10/17/2024 text/html Patient is a 69 year old male that presents to the office for 3 month follow up. Patient has stopped taking all of his diabetes medications. Invokanna and Jardiance were stopped 3 months ago, Rybelsus was stopped 6 days ago due to dizziness. Patient continues to work on diet. Patient did not follow up with [facility]. MARKEL Hodges [address], [place], [address], [employer] 10/17/2024 20:23:58
--- OUTSIDE RECORDS SUMMARY | 2025-01-16 16:24 | XMS_ITS | Patient Health Record ---
Author Organization [facility] [employer] Address [address] [place] [address] Care Team Providers Care Pattern Hanger Name Role Phone Rosemary Avila Primary Care Provider Qian Ambrocio Unavailable [phone] Allergies Allergen (clinical drug ingredient) Drug/Non Drug Allergy documented on EMR Reaction Allergy Type Onset Date Status niacin Niacin Unknown Drug Allergy Active Substance with sulfonamide structure and antibacterial mechanism of action (substance) Sulfa Antibiotics Unknown Drug Allergy Active Results Component Value Reference Range Flag Notes PRESCRIBED DRUGS, medMATCH(R ) (68939) Reviewed date:05/02/2024 02:59:53 PM Interpretation: Performing Lab:[facility]-[id number] Maria Del Carmen Rivera, [id number] Deepak Coyle MD Notes/Report: FASTING: NO medMATCH Summary Prescribed Prescribed Not Prescribed Consistent Inconsistent Inconsistent Aminoclonazepam DRUG MONITOR, BENZO, QN, URI NE ([id number]) Reviewed date:05/02/2024 02:59:24 PM Interpretation: Performing Lab:[facility] [id number] Mittel Miguel, Hong [id number] Damian Wadsworth, Director - [id number] [address] [facility] Notes/Report: FASTING: NO Alphahydroxyalprazolam NEGATIVE <25 ng/mL [...] analytical performance characteristics have been determined by [facility]. It has not been cleared or approved by the FDA. This assay has been validated pursuant to the CLIA regulations and is used for clinical purposes. medMATCH(R) enables providers to identify if drug use is consistent or inconsistent with a corresponding prescribed medication(s) list. Healthcare Providers needing Interpretation assistance, please contact us at [phone] ( ) M-F, 8am to 10pm EST UDT Reviewed date:04/18/2024 02:57:35 PM Interpretation: Performing Lab: Notes/Report: Amphetamine (AMP) NEG 0 - 1000 ng/ml Buprenorphine (BUP) NEG 0 - 10 ng/ml Oxazepam (BZO) NEG 0 - 300 ng/ml Cocaine (ARABELLA) NEG 0 - 300 ng/ml Methamphetamine (mAMP) NEG 0 - 300 ng/ml Methylenedioxymethamphetamin e (MDMA) NEG 0 - 500 ng/ml Morphine (MOP) NEG 0 - 25 ng/ml Methadone (MTD) NEG 0 - 300 ng/ml Oxycodone (OXY) NEG 0 - 300 ng/ml THC NEG 0 - 50 ng/ml x NEG 0 - 1000 ng/ml x NEG 0 - 1000 ng/ml x NEG 0 - 300 ng/ml x NEG 0 - 300 ng/ml x NEG 0 - 300 ng/ml Reason For Referral No Information Medications Medication SIG (Take, Route, Frequency, Duration) Notes Start Date End Date Status clonazePAM 0.5 MG Tablet 1 tablet Oral twice a day; Duration: 30 days 10/26/2024 Active PARoxetine HCl 40 MG Tablet 1 tablet [...] OneTouch Ultra Strip In Vitro 07/13/2023 Not-Taking Multivitamin - Tablet 1 tablet Orally Once a day Active Paliperidone ER 3 MG Tablet Extended Release 24 Hour 1 tablet in the morning Oral Once a day; Duration: 30 days Active Magnesium Oxide (Elemental) 400 MG Tablet Oral *Reorder from [facility] for eRx and Interaction Alerts* 07/13/2023 Active [...] Powder Breath Activated Inhalation *Pick strength-form from [facility] for eRX* 07/13/2023 Not-Taking Pantoprazole Sodium 40 MG Tablet Delayed Release Oral 07/13/2023 Active Neomycin-Polymyxin- HC 3.5-07380-8 Suspension Otic 07/13/2023 Not-Taking Eliquis 5 MG [...] W/U Status Risk Notes Problem Tobacco user (768226327) Nicotine dependence, unspecified, uncomplicated (F17.200) 04/27/19 Active confirmed Problem Schizoaffective disorder, bipolar type (42865800) Schizoaffective disorder, bipolar type (F25.0) 07/13/19 Active confirmed Problem Generalized anxiety disorder (71376339) Generalized anxiety disorder (F41.1) 07/13/19 Active confirmed Problem Posttraumatic stress disorder (61860939) Post-traumatic stress disorder, chronic (F43.12) 04/23/20 24 Active confirmed Problem Primary hypersomnia (11850494) 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) 07/13/19 24 Active confirmed Problem Screening for cardiovascular system disease (178304248) Encounter for screening for cardiovascular disorders (Z13.6) Active confirmed Problem Long-term current use of drug therapy (472744621) Other regulation supervisor (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 (Z79.899) 07/13/19 24 Active confirmed Problem Tobacco use (822803159) Nicotine use (Z72.0) Active confirmed Problem Amnesia (42579246) Memory loss o r impairment (R41.3) Active confirmed Vital Signs Heart Rate 72 /min 10/26/2024 Respiratory Rate 18 /min 10/26/2024 Height-cm 180.34 cm 10/26/2024 Blood pressure diastolic 68 mm Hg 10/26/2024 Weight-kg 131.54 kg 10/26/2024 Height 71.00 in 10/26/2024 Blood pressure systolic 110 mm Hg 10/26/2024 Weight 290 lbs 10/26/2024 BMI 40.44 kg/m2 10/26/2024 Encounters Encounter Location Date Provider Diagnosis [facility] [employer] [place] [address] [facility] [address] [facility] [address] [place] [address] 04/18/2024 Qian Sherman Schizoaffective disorder, bipolar type F25.0 ; Generalized anxiety disorder F41.1 ; Primary hypersomnia F51.11 ; Nicotine dependence, unspecified, uncomplicated F17.200 ; Post-traumatic stress disorder, chronic F43.12 and Other senior care (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 Z79.899 [facility] [place] [address] [place] [address] 07/11/2024 Qian Sherman Schizoaffective disorder, bipolar type F25.0 ; Generalized anxiety disorder F41.1 ; Primary hypersomnia F51.11 ; Nicotine dependence, unspecified, uncomplicated F17.200 ; Post-traumatic stress disorder, chronic F43.12 ; Other regulation supervisor (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 Z79.899 ; Nicotine use Z72.0 and Encounter for screening for cardiovascular disorders Z13.6 [facility] [address] [facility] [address] [place] [address] 10/26/2024 Qian Sherman Schizoaffective disorder, bipolar type F25.0 ; Generalized anxiety disorder F41.1 ; Primary hypersomnia F51.11 ; Nicotine dependence, unspecified, uncomplicated F17.200 ; Post-traumatic stress disorder, chronic F43.12 ; Other regulation supervisor (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 Z79.899 ; Nicotine use Z72.0 ; Encounter for screening for cardiovascular disorders Z13.6 and Memory loss or impairment R41.3 [facility] [employer] [facility] [address] [address] 12/14/2024 Qian [employer] [facility], [facility] [address] [address] 03/06/2024 Qian [employer] [facility], [facility] [address] [address] 07/25/2024 Qian Therpia [facility] [address] [address] 07/26/2024 Qian [employer] [facility], [facility] [address] [address] 09/06/2024 Qian Sherman Schizoaffective disorder, bipolar type F25.0 and Generalized anxiety disorder F41.1 [facility] [address] [address] 09/27/2024 Qian Sherman Generalized anxiety disorder F41.1 [facility] [place] [address] [address] 10/27/2024 Qian Therpia [facility], [facility] [address] [address] 01/05/2025 Qian Sherman Generalized anxiety disorder F41.1 Assessments Encounter Date Diagnosis (ICD Code) Assessment Notes Treatment Notes Treatment Clinical Notes Section Notes 04/18/2024 Schizoaffective disorder, bipolar type (ICD-10 - F25.0) patient recommended to see precision lens technician and refused- reported stopped all heart rx [...] nicotine products and stop smoking hotline given http_s://www.davon. org/Asucq-Plqlyz-W llness/Treatments/ Ihwrrj-Pkeyqy-Zwog cations http_s://www.davon. org/Zjuai-Ujrosl-M llness/Mental-Heal th-Conditions http_s://[facility]/depression /xjd-nevumbmfd-avj pvqiu-jz-fgzzdglnz n#treatments http__s://www.[facility] .nih.gov/health/to pics/mental-health -medications http__s://www.davon .org/About-Mental- Illness/Treatments /Cqpcvt-Fthnxz-Uwg ications educated on all medications, benefits, side effects [...] effects including loss of libido, increased suicidal thoughts/behaviors in children and young adults, and serotonin [...] (ICD-10 - F25.0) patient recommended to see precision lens technician and refused- reported stopped all heart rx [...] PCP 07/13/24 and strongly recommended to see precision lens technician - reported weakness Anxiety Clonazpeam 0.5 mg [...] nicotine products and stop smoking hotline given http_s://www.davon. org/Nvhsh-Eqcgkt-B llness/Treatments/ Jitzlr-Uvyqvr-Nroq cations http_s://www.davon. org/Pyuxz-Zcmkyz-W llness/Mental-Heal th-Conditions http_s://psychcent [employer].com/depression /qvh-xymeyusgu-dzl hltgs-ms-ydbbbplwn n#treatments http__s://www.[facility] .nih.gov/health/to pics/mental-health -medications http__s://www.davon .org/About-Mental- Illness/Treatments /Cxhnmp-Jazxog-Iqa ications educated on all medications, benefits, side effects [...] effects including loss of libido, increased suicidal thoughts/behaviors in children and young adults, and serotonin [...] Schizoaffective disorder, bipolar type (ICD-10 - F25.0) 09/27/2024 Generalized anxiety disorder (ICD-10 - F41.1) 10/26/2024 Schizoaffective disorder, bipolar type (ICD-10 - F25.0) patient recommended to see precision lens technician and refused- reported stopped all heart rx [...] PCP 07/13/24 and strongly recommended to see precision lens technician - reported weakness 2. Anxiety Clonazpeam 0.5 [...] neurology- patient has provider and recommend MRI http_s://www.davon. org/Bbmkm-Zmyrah-F llness/Treatments/ Xyxedq-Omfztj-Solv cations http_s://www.davon. org/Ywmbg-Qfpegd-T llness/Mental-Heal th-Conditions http_s://psychcent [employer].com/depression /yty-woxclpzdx-gwk nojpt-mk-bdmfizbvx n#treatments http__s://www.nimh .nih.gov/health/to pics/mental-health -medications http__s://www.davon .org/About-Mental- Illness/Treatments /Rlrmiz-Idspio-Grs ications educated on all medications, benefits, side effects [...] effects including loss of libido, increased suicidal thoughts/behaviors in children and young adults, and serotonin [...] (ICD-10 - F41.1) patient recommended to see precision lens technician and refused- reported stopped all heart rx [...] PCP 07/13/24 and strongly recommended to see precision lens technician - reported weakness 2. Anxiety Clonazpeam 0.5 [...] neurology- patient has provider and recommend MRI http_s://www.davon. org/Ptvbv-Ooorts-P llness/Treatments/ Osxrxe-Zhbsuz-Mrpn cations http_s://www.davon. org/Cztzg-Wjxbtg-V llness/Mental-Heal th-Conditions http_s://[employer].com/depression /zam-hnknlzoyg-qzw weuxb-fh-wzaoiydkh n#treatments http__s://www.nimh .nih.gov/health/to pics/mental-health -medications http__s://www.davon .org/About-Mental- Illness/Treatments /Mtgsrw-Wxykmr-Eeu ications educated on all medications, benefits, side effects [...] effects including loss of libido, increased suicidal thoughts/behaviors in children and young adults, and serotonin [...] potential neurotoxicity and interactions with prescribed medications. 01/05/2025 Generalized anxiety disorder (ICD-10 - F41.1) 09/06/2024 Generalized anxiety disorder (ICD-10 - F41.1) 10/26/2024 Primary hypersomnia (ICD-10 - F51.11) patient recommended to see precision lens technician and refused- reported stopped all heart rx [...] PCP 07/13/24 and strongly recommended to see precision lens technician - reported weakness 2. Anxiety Clonazpeam 0.5 [...] neurology- patient has provider and recommend MRI http_s://www.davon. org/Vkbqg-Geprab-Y llness/Treatments/ Hrqvsf-Hyuusd-Zvdf cations http_s://www.davon. org/Uhdqu-Aqpqhr-Z llness/Mental-Heal th-Conditions http_s://[employer].com/depression /pxm-lspjdhrtp-ize zjfed-av-llditkjnl n#treatments http__s://www.nimh .nih.gov/health/to pics/mental-health -medications http__s://www.davon .org/About-Mental- Illness/Treatments /Jblgjx-Czfpdm-Gwe ications educated on all medications, benefits, side effects [...] effects including loss of libido, increased suicidal thoughts/behaviors in children and young adults, and serotonin [...] (ICD-10 - F41.1) patient recommended to see precision lens technician and refused- reported stopped all heart rx [...] PCP 07/13/24 and strongly recommended to see precision lens technician - reported weakness Anxiety Clonazpeam 0.5 mg BID, Vistaril 25 mg BID Hypersomnia- SLEEP hygeine PTSD- therapy n/c [facility]- hx Tobacco use discuss TMS for smoking [...] nicotine products and stop smoking hotline given http_s://www.davon. org/Xrtpm-Newley-W llness/Treatments/ Pqcrsk-Nifcwd-Tfoa cations http_s://www.davon. org/Erevg-Lszglq-Z llness/Mental-Heal th-Conditions http_s://psychcent [employer].com/depression /nlp-tbbigvsdf-qge acgkf-ss-oftmlyojc n#treatments http__s://www.nimh .nih.gov/health/to pics/mental-health -medications http__s://www.davon .org/About-Mental- Illness/Treatments /Luasrm-Ifynqq-Lzd ications educated on all medications, benefits, side effects [...] effects including loss of libido, increased suicidal thoughts/behaviors in children and young adults, and serotonin [...] (ICD-10 - F41.1) patient recommended to see precision lens technician and refused- reported stopped all heart rx [...] nicotine products and stop smoking hotline given http_s://www.davon. org/Ewvff-Rvledg-E llness/Treatments/ Deaach-Nkanmm-Xjxm cations http_s://www.davon. org/Rhrir-Qodwla-L llness/Mental-Heal th-Conditions http_s://psychcent [employer].com/depression /gzz-akzydcdrw-oqu vlrxz-bt-wmqqedgca n#treatments http__s://www.nimh .nih.gov/health/to pics/mental-health -medications http__s://www.davon .org/About-Mental- Illness/Treatments /Tlrmgu-Cvolak-Mqz ications educated on all medications, benefits, side effects [...] effects including loss of libido, increased suicidal thoughts/behaviors in children and young adults, and serotonin [...] (ICD-10 - F51.11) patient recommended to see precision lens technician and refused- reported stopped all heart rx [...] PCP 07/13/24 and strongly recommended to see precision lens technician - reported weakness Anxiety Clonazpeam 0.5 mg [...] nicotine products and stop smoking hotline given http_s://www.davon. org/Kqsmc-Dgkjjb-R llness/Treatments/ Lhbakw-Cptqiw-Lhiq cations http_s://www.davon. org/Ovdfe-Ogifwd-Q llness/Mental-Heal th-Conditions http_s://psychI-[employer].com/depression /gna-ainflqqqk-pfe zdzmp-ah-xaudrdzxo n#treatments http__s://www.nimh .nih.gov/health/to pics/mental-health -medications http__s://www.davon .org/About-Mental- Illness/Treatments /Paqnfg-Igymmi-Jna ications educated on all medications, benefits, side effects [...] effects including loss of libido, increased suicidal thoughts/behaviors in children and young adults, and serotonin [...] (ICD-10 - F51.11) patient recommended to see precision lens technician and refused- reported stopped all heart rx [...] nicotine products and stop smoking hotline given http_s://www.davon. org/Hsccx-Cyyzfj-K llness/Treatments/ Dabfkf-Zsslee-Yqev cations http_s://www.davon. org/Awwbs-Fqwofn-E llness/Mental-Heal th-Conditions http_s://Throw[employer].com/depression /xye-zgmhzezto-svt dtppg-fy-qhmrzhdun n#treatments http__s://www.[facility] .nih.gov/health/to pics/mental-health -medications http__s://www.davon .org/About-Mental- Illness/Treatments /Rpnlwx-Rtxzcj-Jch ications educated on all medications, benefits, side effects [...] effects including loss of libido, increased suicidal thoughts/behaviors in children and young adults, and serotonin [...] (ICD-10 - F17.200) patient recommended to see precision lens technician and refused- reported stopped all heart rx [...] PCP 07/13/24 and strongly recommended to see precision lens technician - reported weakness 2. Anxiety Clonazpeam 0.5 [...] neurology- patient has provider and recommend MRI http_s://www.davon. org/Ktnzq-Slbtfx-Y llness/Treatments/ Ynxexi-Rmxcxz-Ucux cations http_s://www.davon. org/Kgucq-Xbbmdp-F llness/Mental-Heal th-Conditions http_s://psychcent [employer].com/depression /vaf-ewbwlmwbo-qit ofpld-xm-iekplzwtd n#treatments http__s://www.nimh .nih.gov/health/to pics/mental-health -medications http__s://www.davon .org/About-Mental- Illness/Treatments /Kpjthw-Ljuybe-Bot ications educated on all medications, benefits, side effects [...] effects including loss of libido, increased suicidal thoughts/behaviors in children and young adults, and serotonin [...] (ICD-10 - F43.12) patient recommended to see precision lens technician and refused- reported stopped all heart rx [...] PCP 07/13/24 and strongly recommended to see precision lens technician - reported weakness 2. Anxiety Clonazpeam 0.5 [...] neurology- patient has provider and recommend MRI http_s://www.davon. org/Vbmmx-Iljtsi-X llness/Treatments/ Tuvnpo-Xepyne-Htgq cations http_s://www.davon. org/Jovol-Npknlp-N llness/Mental-Heal th-Conditions http_s://ThrowMotion.com/depression /ytq-dsxbcmnjl-pcr slnhv-zu-apkkyudrb n#treatments http__s://www.nimh .nih.gov/health/to pics/mental-health -medications http__s://www.davon .org/About-Mental- Illness/Treatments /Evondt-Zyocwk-Uui ications educated on all medications, benefits, side effects [...] effects including loss of libido, increased suicidal thoughts/behaviors in children and young adults, and serotonin [...] (ICD-10 - F17.200) patient recommended to see precision lens technician and refused- reported stopped all heart rx [...] BID Hypersomnia- SLEEP hygeine PTSD- therapy n/c [facility]- hx Tobacco use discuss TMS for smoking [...] nicotine products and stop smoking hotline given http_s://www.davon. org/Pfwdq-Ctoxha-C llness/Treatments/ Opcqiq-Jetuam-Xuvm cations http_s://www.davon. org/Awfbp-Bkhert-K llness/Mental-Heal th-Conditions http_s://psychI-[employer].com/depression /wum-rpcjaiymt-miu ggmvd-in-ckrrtifad n#treatments http__s://www.nimh .nih.gov/health/to pics/mental-health -medications http__s://www.davon .org/About-Mental- Illness/Treatments /Lldveo-Vmdgix-Ftm ications educated on all medications, benefits, side effects [...] effects including loss of libido, increased suicidal thoughts/behaviors in children and young adults, and serotonin [...] (ICD-10 - F17.200) patient recommended to see precision lens technician and refused- reported stopped all heart rx [...] PCP 07/13/24 and strongly recommended to see precision lens technician - reported weakness Anxiety Clonazpeam 0.5 mg [...] nicotine products and stop smoking hotline given http_s://www.davon. org/Itpps-Bnfwts-J llness/Treatments/ Erfsat-Qwefmi-Kzfb cations http_s://www.davon. org/Amwat-Asoccw-G llness/Mental-Heal th-Conditions http_s://psychcent [employer].com/depression /cpi-msadfpnlu-wjz xqnwp-wc-rlelkrytr n#treatments http__s://www.nimh .nih.gov/health/to pics/mental-health -medications http__s://www.davon .org/About-Mental- Illness/Treatments /Adsbiu-Jsninn-Xjc ications educated on all medications, benefits, side effects [...] effects including loss of libido, increased suicidal thoughts/behaviors in children and young adults, and serotonin [...] (ICD-10 - F43.12) patient recommended to see precision lens technician and refused- reported stopped all heart rx [...] nicotine products and stop smoking hotline given http_s://www.davon. org/Hsgwx-Dgzshe-A llness/Treatments/ Wxamzy-Opukzw-Gudn cations http_s://www.davon. org/Rsdcw-Jkciyt-V llness/Mental-Heal th-Conditions http_s://ThrowMotion.com/depression /yam-rsnhymude-fyv fiyxa-ol-pgwtmctnl n#treatments http__s://www.nimh .nih.gov/health/to pics/mental-health -medications http__s://www.davon .org/About-Mental- Illness/Treatments /Dzltyj-Hxyxfd-Uxt ications educated on all medications, benefits, side effects [...] effects including loss of libido, increased suicidal thoughts/behaviors in children and young adults, and serotonin [...] (ICD-10 - F43.12) patient recommended to see precision lens technician and refused- reported stopped all heart rx [...] PCP 07/13/24 and strongly recommended to see precision lens technician - reported weakness Anxiety Clonazpeam 0.5 mg [...] nicotine products and stop smoking hotline given http_s://www.davon. org/Fysnu-Oecary-R llness/Treatments/ Gbthmg-Rmamia-Gxhp cations http_s://www.davon. org/Fcgzy-Ubjqnh-O llness/Mental-Heal th-Conditions http_s://ThrowMotion.com/depression /ffl-cwjbeqzmi-gsu nxutq-mx-srjudykta n#treatments http__s://www.nim .nih.gov/health/to pics/mental-health -medications http__s://www.davon .org/About-Mental- Illness/Treatments /Ishqph-Shalrd-Ral ications educated on all medications, benefits, side effects [...] effects including loss of libido, increased suicidal thoughts/behaviors in children and young adults, and serotonin [...] and interactions with prescribed medications. 10/26/2024 Other senior care (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 (ICD-10 - Z79.899) patient recommended to see precision lens technician and refused- reported stopped all heart rx [...] PCP 07/13/24 and strongly recommended to see precision lens technician - reported weakness 2. Anxiety Clonazpeam 0.5 [...] neurology- patient has provider and recommend MRI http_s://www.davon. org/Mtjhr-Rgaxsu-J llness/Treatments/ Fodznx-Jmeddq-Asxd cations http_s://www.davon. org/Iszay-Qdmxnw-B llness/Mental-Heal th-Conditions http_s://ThrowMotion.com/depression /uum-mfvvoanin-vfa gtyxx-jr-iftndotny n#treatments http__s://www.nimh .nih.gov/health/to pics/mental-health -medications http__s://www.davon .org/About-Mental- Illness/Treatments /Zsmgsa-Xedpuw-Hwe ications educated on all medications, benefits, side effects [...] effects including loss of libido, increased suicidal thoughts/behaviors in children and young adults, and serotonin [...] (ICD-10 - Z72.0) patient recommended to see precision lens technician and refused- reported stopped all heart rx [...] PCP 07/13/24 and strongly recommended to see precision lens technician - reported weakness 2. Anxiety Clonazpeam 0.5 [...] neurology- patient has provider and recommend MRI http_s://www.davon. org/Qntso-Uvnzvu-A llness/Treatments/ Gwmmmn-Jilskm-Dazi cations http_s://www.davon. org/Xuxyo-Sqynav-J llness/Mental-Heal th-Conditions http_s://psychI-[employer].com/depression /cyb-xshunkqpb-ldz javax-ti-jusnvccfx n#treatments http__s://www.nim .nih.gov/health/to pics/mental-health -medications http__s://www.davon .org/About-Mental- Illness/Treatments /Txmqiw-Clofad-Igl ications educated on all medications, benefits, side effects [...] effects including loss of libido, increased suicidal thoughts/behaviors in children and young adults, and serotonin [...] and interactions with prescribed medications. 07/11/2024 Other regulation supervisor (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 (ICD-10 - Z79.899) patient recommended to see precision lens technician and refused- reported stopped all heart rx [...] PCP 07/13/24 and strongly recommended to see precision lens technician - reported weakness Anxiety Clonazpeam 0.5 mg [...] nicotine products and stop smoking hotline given http_s://www.davon. org/Yzijp-Srmltv-P llness/Treatments/ Gtkzrl-Ayuowh-Eqlb cations http_s://www.davon. org/Ldtfe-Ouexmz-E llness/Mental-Heal th-Conditions http_s://psychcent [employer].com/depression /ykw-wjufdyvxo-fud hugyf-qs-ewkikrxog n#treatments http__s://www.nimh .nih.gov/health/to pics/mental-health -medications http__s://www.davon .org/About-Mental- Illness/Treatments /Pfqlqd-Ujofpq-Qlm ications educated on all medications, benefits, side effects [...] effects including loss of libido, increased suicidal thoughts/behaviors in children and young adults, and serotonin [...] and interactions with prescribed medications. 04/18/2024 Other regulation supervisor (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 (ICD-10 - Z79.899) patient recommended to see precision lens technician and refused- reported stopped all heart rx [...] nicotine products and stop smoking hotline given http_s://www.davon. org/Gjvul-Xryvyy-F llness/Treatments/ Tkkbhs-Jicpaw-Yhpe cations http_s://www.davon. org/Fdteh-Lhwzlm-M llness/Mental-Heal th-Conditions http_s://psychcent Silatronix.com/depression /zgd-rnpbgoqur-gsh ycwxg-am-uouzybqzx n#treatments http__s://www.nimh .nih.gov/health/to pics/mental-health -medications http__s://www.davon .org/About-Mental- Illness/Treatments /Cjrtvn-Pqaazx-Otb ications educated on all medications, benefits, side effects [...] effects including loss of libido, increased suicidal thoughts/behaviors in children and young adults, and serotonin [...] (ICD-10 - Z72.0) patient recommended to see precision lens technician and refused- reported stopped all heart rx [...] PCP 07/13/24 and strongly recommended to see precision lens technician - reported weakness Anxiety Clonazpeam 0.5 mg [...] nicotine products and stop smoking hotline given http_s://www.davon. org/Ddrlz-Cporiy-J llness/Treatments/ Hkgebn-Krdffm-Lfbv cations http_s://www.davon. org/Iussf-Octdhy-Q llness/Mental-Heal th-Conditions http_s://ThrowMotion.com/depression /brz-xqoruwbcr-pli nvpjm-gw-xqafnihjz n#treatments http__s://www.nimh .nih.gov/health/to pics/mental-health -medications http__s://www.davon .org/About-Mental- Illness/Treatments /Diyggs-Uomfbh-Jou ications educated on all medications, benefits, side effects [...] effects including loss of libido, increased suicidal thoughts/behaviors in children and young adults, and serotonin [...] (ICD-10 - Z13.6) patient recommended to see precision lens technician and refused- reported stopped all heart rx [...] PCP 07/13/24 and strongly recommended to see precision lens technician - reported weakness 2. Anxiety Clonazpeam 0.5 [...] neurology- patient has provider and recommend MRI http_s://www.davon. org/Futuw-Trxktc-T llness/Treatments/ Asvghl-Omwyzg-Gmdc cations http_s://www.davon. org/Kkrki-Eyfeby-H llness/Mental-Heal th-Conditions http_s://ThrowMotion.com/depression /vld-mrtnzqkzy-oha xyjbl-nf-leavivnjk n#treatments http__s://www.nimh .nih.gov/health/to pics/mental-health -medications http__s://www.davon .org/About-Mental- Illness/Treatments /Cuszvo-Jolagl-Puc ications educated on all medications, benefits, side effects [...] effects including loss of libido, increased suicidal thoughts/behaviors in children and young adults, and serotonin [...] (ICD-10 - R41.3) patient recommended to see precision lens technician and refused- reported stopped all heart rx [...] PCP 07/13/24 and strongly recommended to see precision lens technician - reported weakness 2. Anxiety Clonazpeam 0.5 [...] neurology- patient has provider and recommend MRI http_s://www.davon. org/Srijo-Hdzplw-L llness/Treatments/ Tsjnqo-Zccbsd-Dflu cations http_s://www.davon. org/Crzwc-Jnithh-Z llness/Mental-Heal th-Conditions http_s://psychcent Silatronix.com/depression /yzj-esmtcsbum-iht hzolr-vf-rozpvrkbk n#treatments http__s://www.nimh .nih.gov/health/to pics/mental-health -medications http__s://www.davon .org/About-Mental- Illness/Treatments /Xeoicf-Mreufd-Wnc ications educated on all medications, benefits, side effects [...] effects including loss of libido, increased suicidal thoughts/behaviors in children and young adults, and serotonin [...] (ICD-10 - Z13.6) patient recommended to see precision lens technician and refused- reported stopped all heart rx [...] PCP 07/13/24 and strongly recommended to see precision lens technician - reported weakness Anxiety Clonazpeam 0.5 mg [...] nicotine products and stop smoking hotline given http_s://www.davon. org/Gemwa-Ckjurb-E llness/Treatments/ Yphyya-Eaqune-Igtm cations http_s://www.davon. org/Bbfuh-Uowqjt-C llness/Mental-Heal th-Conditions http_s://psychI-CAN Systems.com/depression /wks-kmpcfiamm-kfr gxnkh-ip-aeezbdtqe n#treatments http__s://www.nim .nih.gov/health/to pics/mental-health -medications http__s://www.davon .org/About-Mental- Illness/Treatments /Ivkggf-Rmqhez-Lan ications educated on all medications, benefits, side effects [...] effects including loss of libido, increased suicidal thoughts/behaviors in children and young adults, and serotonin [...] interactions with prescribed medications. Plan Of Treatment No Information Insurance Providers Payer Name Payer Address Payer Phone Subscriber Number Group Number Insured Name Patient Relationship to Insured Coverage Start Date Coverage End Date [facility] [address] [address] [place] [phone] [id number] T+O ARTEMIO OONFRE Self - patient is the insured [email or web address] - Medicare Supplement [address] [place] [address] [id number] ARTEMIO ONOFRE Self - patient is the [...]
--- OUTSIDE RECORDS SUMMARY | 2025-01-16 16:24 | XMS_ITS | Clinical Summary ---
Author Organization [facility] Facility Address [address] [address] Care Team Providers Care Box Sealing Inspector Name Role Phone Olinda Trujillo MD Primary Care Provider [phone] Social History Tobacco Use Types Packs/Day Years [...] patient's age to complete this topic [place] [address] Medicare [facility] Care Teams Box Sealing Inspector Relationship Specialty Start Date End Date Olinda Trujillo MD [address] [place] [address] [place] [address] PCP - General Family Medicine 11/09/23
--- OUTSIDE RECORDS SUMMARY | 2025-01-16 16:24 | XMS_ITS | Clinical Summary ---
Author Organization [facility] Address [address] [place] [address] Care Team Providers Care Hide Salter Name Role Phone MirtaAndrés henry Min Primary [...] (1 - 1-dose 75+ series) 2032 Insurance [facility] Care Teams Hide Salter Relationship Specialty Start Date End Date Andrés Bradshaw DO [address] [id number] PCP - General Internal Medicine 06/02/18
--- NOTE | 2025-01-16 16:44 | PC.NURSE ---
Care coordination at bedside talking with pt. and pt. caregiver. Resources provided and information given on places for pt. to rent a WC.
--- NOTE | 2025-01-16 16:46 | PC.NURSE ---
Pt. unable to use crutches. He has a cane at home and information given to rent a WC. Dr. Margarita quiros.
--- NOTE | 2025-01-16 16:48 | PC.NURSE ---
Attempted to call pt. power of scale tester (sister) but phone call went directly to voicemail.
--- NOTE | 2025-01-16 17:01 | PCCCNOTE ---
Called to the ED regarding pt needing more assistance at home. He has a ulcer on his right foot and he today came in after a fall and fractured his left distal tibia. Pt lives alone and has a supervisor irrigation that comes to his home a couple days a week, but needs nursing care. I gave him resources for home health nurses, disability information, department of aging information, [facility] care coordinators phone number, and resources for free rentals of DME's. Dr. Howard is putting a prescription in for a walker in his D/C paperwork. Pt. and his visitor verbalized understanding and will call the MD and insurance tomorrow regarding home health nursing. We also encouraged them to call the VA coordinator to get established in the VA for their assistance.
--- NOTE | 2025-01-16 17:15 | PC.NURSE ---
Per care coordination recommendation, pt. d/c to home with paper script for walker.
[2025-01-16 17:36] VITALS: BP 121/70; PULSE 85; RESP 14; TEMP 36.6; O2SAT 95
--- NOTE | 2025-01-16 17:40 | PC.NURSE ---
Pt. POA phone number confirmed with pt. caregiver. Voicemail left for POA about visit.
--- OUTSIDE RECORDS SUMMARY | 2025-01-16 17:49 | XMS_ITS | Clinical Summary ---
Author Organization [facility] Facility Address [address] [address] Care Team Providers Care Oral Health Therapist Name Role Phone Olinda Trujillo MD Primary Care Provider [phone] Social History Tobacco Use Types Packs/Day Years [...] patient's age to complete this topic [place] [address] Medicare [facility] Care Teams Oral Health Therapist Relationship Specialty Start Date End Date Olinda Trujillo MD [address] [place] [address] [place] [address] PCP - General Family Medicine 11/09/23
--- OUTSIDE RECORDS SUMMARY | 2025-01-16 17:49 | XMS_ITS | Clinical Summary ---
Author Organization [facility] Address [address] [place] [address] Care Team Providers Care Seed Buyer Name Role Phone MirtaAndrés henry Min Primary [...] (1 - 1-dose 75+ series) 2032 Insurance [facility] Care Teams Seed Buyer Relationship Specialty Start Date End Date Andrés Bradshaw DO [address] [phone] PCP - General Internal Medicine 06/02/18
== END 2025-01-16 17:41 | disposition home or self-care (01) ==
LOC: ANHED 16:04
PROVIDERS: Emergency Provider Student in an Organized Health Care Education/Training Program; PCP Nurse Practitioner Family
DX: S82.832A Other fracture of upper and lower end of left fibula, initial encounter for closed fracture (principal); E11.621 Type 2 diabetes mellitus with foot ulcer; L97.519 Non-pressure chronic ulcer of other part of right foot with unspecified severity; I48.91 Unspecified atrial fibrillation; I25.10 Atherosclerotic heart disease of native coronary artery without angina pectoris; E11.22 Type 2 diabetes mellitus with diabetic chronic kidney disease; I12.9 Hypertensive chronic kidney disease with stage 1 through stage 4 chronic kidney disease, or unspecified chronic kidney disease; N18.30 Chronic kidney disease, stage 3 unspecified; H93.25 Central auditory processing disorder; E03.9 Hypothyroidism, unspecified; F25.9 Schizoaffective disorder, unspecified; F17.210 Nicotine dependence, cigarettes, uncomplicated; Z79.01 Long term (current) use of anticoagulants; Z79.82 Long term (current) use of aspirin; Z79.84 Long term (current) use of oral hypoglycemic drugs; Z79.899 Other long term (current) drug therapy; X50.9XXA Other and unspecified overexertion or strenuous movements or postures, initial encounter; W23.1XXA Caught, crushed, jammed, or pinched between stationary objects, initial encounter
CPT/HCPCS: 29515; 73610; 73630; 99284

== ENCOUNTER 2025-02-08 14:28 | Inpatient (IN) | payer MEDICARE, OTHER, SELFPAY ==
--- OUTSIDE RECORDS SUMMARY | 2024-12-21 07:00 | XMS_ITS | Continuity of Care Document ---
Author Name [facility] Organization [facility] Care Team Providers Care Reimbursement Rep Name Role Phone [facility] Unavailable Unavailable Problems Combined list of problems from Department of Defense and Veterans Affairs facilities. It does not include entries that were removed or entered in error. Problem Status Onset Date Problem Type Date of Resolution Comments Source Hearing Loss, Sensorineural, Unspecified Active Condition [facility] Diagnosis: ICD-10-CM Z71.9 Counseling, unspecified Active Diagnosis [facility] Encounters Combined list of: 1) Encounters from Department of Veterans Affairs facilities going backup to the last 18 months, not all VA inpatient encounters are included; 2) Encounters from the Department of [facility] facilities going backup to 280 months. Location Location Details Encounter Type Encounter Number Reason For Visit Attending Provider ADM Date DC Date Status Disposition Source [facility] Outpatient Encounter [id number] 11/07 [facility] Out[facility] Encounter [id number] 05[facility] En[facility] [id number] JANET MENDOZA N 05/29 [facility] Out[facility] Encounter [id number] 12/19 [facility] Out[facility]counter [id number] 12/21 [facility] Out[facility] Encounter [id number] 12/21 [facility] PH1 ASSMT&MGMT NQHP 11-20 [id number] Diagnos is: ICD-10- CM Z71.9 Translator Deaf ing, unspeci KALEIGH Coates 12/21 [facility]
--- OUTSIDE RECORDS SUMMARY | 2025-01-18 08:15 | XMS_ITS ---
Author Organization [facility] [employer] Address [facility] [facility] [address] [place] [address] Care Team Providers Care Music Pastor Name Role Phone Rosemary Avila Primary Care Provider Qian Ambrocio Unavailable [phone] REASON FOR VISIT 3 month f/u; complete falls plan of care Social History Sex Assigned At : Social History Observation Description Sex Assigned At Male Encounters Encounter Location Date Provider Diagnosis [facility] [place] [employer] [facility] [address] [facility] [address] [facility] [address] [place] [address] 01/18/2025 Qian Sherman Plan Of Treatment No Information Progress Notes * ARTEMIO ONOFRE CDOB:1955 (69 yo M)Acc No.[id number]:01/18/2025 Patient: Divine ROMAN ARTEMIO Lopez Provider: JESUS HADDAD :1955 A ge:69 Y S ex:Male Date:01/18/2025 Address:[address] [place] [place], [place] Pcp:Rosemary JEAN BAPTISTE Subjective: * Chief Complaints: * 3 month f/u; complete falls plan of care * Electronic signature of JESUS Espinoza on 02/08/2025 at 08:29 PM DOCTOR OF OSTEOPATHY Sign off status: Pending * Provider: JESUS HADDAD Date: Generated for Newton olmstead/[employer]/Cinthiaitting on: 04/10/2024 08:29 PM DOCTOR OF OSTEOPATHY
--- NOTE | ~2025-02-08 | XR_ITS ---
EXAMINATION: XR chest PICC line, 02/16/2025 14:46 COMPENSATION CONSULTING MANAGER HISTORY: confirm picc placement COMPARISON: No comparisons available. Technique: Single view. Findings: The lungs are clear, no effusion. No pneumothorax. Heart is normal size. Mediastinal and hilar contours are within normal limits. Bony thorax no acute abnormality. Left PICC line terminates at the junction of the brachiocephalic in the SVC. Impression: No acute cardiopulmonary abnormality. Reviewed, dictated and finalized at location P. ENSATION CONSULTING MANAGER Impression: No acute cardiopulmonary abnormality.
--- NOTE | ~2025-02-08 | XR_ITS ---
XR chest PICC line 02/16/2025 15:41 Indication: PICC line placement Procedure: AP portable chest Comparison: 02/16/2025 Findings: Heart size normal. Left subclavian PICC line tip in the CC. No focal air space disease, pulmonary edema, pleural effusion or suspected pneumothorax. Left costophrenic recesses excluded. Impression: 1: PICC line tip in the SVC. Reviewed, dictated and finalized at location I. ITY CONTROL ANALYST Impression: 1: PICC line tip in the SVC.
--- NOTE | ~2025-02-08 | XR_ITS ---
EXAMINATION: XR foot RT min 3V DATE: 02/08/2025 17:21 INDICATION: Diabetic wound with drainage on the lateral aspect of the foot. TECHNIQUE: 4 views were obtained. COMPARISON: Radiograph dated 01/16/2025 FINDINGS: Severe erosive changes of distal fifth metatarsal bone is noted with pathological fractures suggestive of osteomyelitis with pathological fracture of the distal fifth metatarsal. Soft tissue ulcer is noted near the head of the fifth metatarsal on the lateral aspect. No gas bubbles are seen in the soft tissues. These findings were not seen on prior x-ray of 01/16/2025. IMPRESSION: 1. Significant erosive changes with pathological fracture of distal fifth metatarsal bone suggestive of osteomyelitis with pathologic fracture. Reviewed, dictated and finalized at location T. ERCIAL LINES UNDERWRITER IMPRESSION: 1. Significant erosive changes with pathological fracture of distal fifth metat arsal bone suggestive of osteomyelitis with pathologic fracture.
[2025-02-08 14:38] VITALS: BP 94/58; PULSE 87; RESP 18; TEMP 36.4; O2SAT 98
--- NOTE | 2025-02-08 16:54 | ED.WOUNDLAC ---
HPI - Wound/Laceration General Chief Complaint: Wound/Laceration <Lynn Martínez PA-C - Last Filed: 02/08/25 17:11> Stated Complaint: diabetic; right side toes need amputated <DEBORAH Rivas Last Filed: 02/08/25 17:11> Time Seen by Provider: 02/08/25 16:54 <Lynn Martínez PA-C - Last Filed: 02/08/25 17:11> Focused HPI: Patient is a 69 y/o male, with PMH of DM, who presents to the ED with concern for diabetic ulcer/open wound to his R foot. Patient's house piping inspector/lacquerer assisted in providing information. Reports wound to R lateral distal foot plantar surface, involving the pinky toe. Reports wound has been present for several months, became worse in November, has been seeing wound care and podiatry (Dr. Lafleur) intermittently since then. Saw a wound care doctor at [place] yesterday and said that the bone was exposed and he needed hospitalization. Patient c/o pain with bearing weight on R foot. States his most recent A1c was 6.6%. He does not check his blood sugars regularly. GENERAL: Well-appearing, well-nourished, and in no acute distress. HEAD: Normocephalic, atraumatic. CHEST: Clear to auscultation. ?No respiratory distress. HEART: Regular rate and rhythm.? NEURO: ?Alert and oriented x3. Patient screened in triage and initial orders placed.? ?Additional care and disposition to be based upon?diagnostic testing and treatment. <Lynn Martínez PA-C - Last Filed: 02/08/25 17:11> Focused HPI: Patient is a 69 y/o male, with PMH of DM, who presents to the ED with concern for diabetic ulcer/open wound to his R foot. Patient's house piping inspector/lacquerer assisted in providing information. Reports wound to R lateral distal foot plantar surface, involving the pinky toe. Reports wound has been present for several months, became worse in November, has been seeing wound care and podiatry (Dr. Lafleur) As well as orthopedics with Dr. Hollis intermittently since then. Saw a wound care doctor at [place] yesterday and said that the bone was exposed and he needed hospitalization. Patient c/o pain with bearing weight on R foot. States his most recent A1c was 6.6%. He does not check his blood sugars regularly. GENERAL: Well-appearing, well-nourished, and in no acute distress. HEAD: Normocephalic, atraumatic. CHEST: Clear to auscultation. ?No respiratory distress. HEART: Regular rate and rhythm.? NEURO: ?Alert and oriented x3. Patient screened in triage and initial orders placed.? ?Additional care and disposition to be based upon?diagnostic testing and treatment. <Gonzalez Avila MD - Last Filed: 02/09/25 04:20> Source: patient and family <Lynn Martínez PA-C - Last Filed: 02/08/25 17:11> Mode of arrival: wheelchair <Lynn Martínez PA-C - Last Filed: 02/08/25 17:11> Limitations: no limitations <DEBOARH Rivas Last Filed: 02/08/25 17:11> Related Data Home Medications: Home Medications ?Medication ?Instructions ?Recorded ?Confirmed ?Last Taken ?Type aspirin 81 mg tablet,delayed 81 mg PO DAILY 03/27/19 02/08/25 02/08/25 History release (Adult Aspirin Regimen) clonazepam 0.5 mg tablet 0.5 mg PO BID PRN Anxiety 03/27/19 02/08/25 02/08/25 History loratadine 10 mg tablet (Allergy 10 mg PO DAILY 03/27/19 02/08/25 02/08/25 History Relief (loratadine)) cholecalciferol (vitamin D3) 250 50 mcg PO DAILY 07/18/19 02/08/25 02/08/25 History mcg (10,000 unit) capsule mecobalamin (vitamin B12) 5,000 500 mcg PO DAILY 07/18/19 02/08/25 02/08/25 History mcg disintegrating tablet melatonin 3 mg capsule 5 mg PO HS 10/10/19 02/08/25 02/07/25 History bupropion HCl 150 mg tablet,12 hr 150 mg PO DAILY 01/15/20 02/08/25 02/08/25 History sustained-release paliperidone 6 mg tablet,extended 6 mg PO HS 01/15/20 02/08/25 02/07/25 History release 24 hr hydroxyzine HCl 25 mg tablet 25 mg PO BID PRN Anxiety 06/02/22 02/08/25 02/08/25 History paroxetine HCl 40 mg tablet 40 mg PO DAILY 06/02/22 02/08/25 02/08/25 History gabapentin 300 mg capsule 300 mg PO Q8H neuropathy 02/08/25 02/08/25 02/08/25 History semaglutide 3 mg tablet (Rybelsus) 7 mg PO DAILY@0800 diabetes 02/08/25 02/08/25 02/08/25 History <Lynn Martínez PA-C - Last Filed: 02/08/25 17:11> Allergies/Adverse Reactions: Allergies Allergy/AdvReac Type Severity Reaction Status Date / Time Sulfa (Sulfonamide Allergy Unknown Unknown Verified 01/24/25 09:06 Antibiotics) niacin AdvReac Mild Flushing Verified 01/24/25 09:06 lactose milk products AdvReac Intermediate GI upset Uncoded 01/24/25 09:06 <Lynn Martínez PA-C - Last Filed: 02/08/25 17:11> Review of Systems Review of Systems: as reviewed above in HPI <Gonzalez Avila MD - Last Filed: 02/09/25 04:20> PMFSH Past Medical History Medical History: Medical History Morbid obesity with BMI of 40.0-44.9, adult Type 2 DM with CKD stage 3 and hypertension Poor dentition Acquired hypothyroidism Atrial fibrillation Coronary artery disease <Lynn Martínez PA-C - Last Filed: 02/08/25 17:11> Surgical History Surgical History: Surgical History Surgical history unknown <Lynn Martínez PA-C - Last Filed: 02/08/25 17:11> Family History Family History: Family History Mother Depression Hypertension Family history of arthritis Diabetes mellitus Father Family history of alcoholism Sibling Family history of alcoholism Grandparent Family history of cardiovascular disease <Lynn Martínez PA-C - Last Filed: 02/08/25 17:11> Social History Social History: Social History Smoking packs per day: 2 Smoking cigarettes per day: 40.0 Years smoked: 47 Smoking pack-years: 94.00 Smoking status: Current every day smoker Tobacco type: cigarettes Second hand tobacco smoke exposure: Yes Alcohol intake: never Substance use: former Substance use type: does not use Lack of Transportation: No Lack of Food: Never True Current Housing: I Have Housing Concerned About Future Housing: No Difficulty Paying Gas/Electric Bills: No Difficulty Paying for Meds: No Currently Unemployed: No Education: High School Diploma/GED Difficulty w/ Childcare or Family Care: No Spiritual care concerns: No <Lynn Martínez PA-C - Last Filed: 02/08/25 17:11> Exam Narrative: GENERAL: [Well-appearing, well-nourished, and in no acute distress.] HEAD: [Normocephalic, atraumatic.] EYES: [PERRLA and EOMI.] ENT: Nares clear, no rhinorrhea or epistaxis. Mucous membranes moist. NECK: Supple. CHEST: [Clear to auscultation. No respiratory distress.] HEART: [Regular rate and rhythm]. No murmur heard. [Normal peripheral pulses.] ABDOMEN: [Soft, nondistended], [nontender], [No rigidity or guarding] EXTREMITIES: Normal range of motion, no significant extremity edema. Left lower extremity has 2 small punctate well-healing ulcers over the anterior portion of the barrera and posterior left heel that do not appear clinically infected. Right foot has a open ulcer with purulent drainage along the 5th metatarsal aspect with some minor tenderness reproducible palpation. No overlying redness or streaking erythema. 2+ dorsalis pedis pulse. Warm extremity. SKIN: Warm, dry, no rash. NEURO: [No focal deficits]. Alert and oriented [x3.] PSYCH: [Normal mood and affect.] <Gonzalez Avila MD - Last Filed: 02/09/25 04:20> Course Vital Signs Vital signs: Vital Signs Temperature 36.4 C 02/08/25 14:38 Pulse Rate 87 02/08/25 14:38 Respiratory Rate 18 02/08/25 14:38 Blood Pressure 94/58 L 02/08/25 14:38 Pulse Oximetry 98 02/08/25 14:38 Oxygen Delivery Room Air 02/08/25 14:38 Temperature 36.3 C L 02/09/25 04:02 Pulse Rate 93 02/09/25 04:02 Respiratory Rate 18 02/09/25 04:02 Blood Pressure 149/87 H 02/09/25 04:02 Pulse Oximetry 95 02/09/25 04:02 Oxygen Delivery CPAP 02/09/25 01:55 <Lynn Martínez PA-C - Last Filed: 02/08/25 17:11> Vital Signs Temperature 36.4 C 02/08/25 14:38 Pulse Rate 87 02/08/25 14:38 Respiratory Rate 18 02/08/25 14:38 Blood Pressure 94/58 L 02/08/25 14:38 Pulse Oximetry 98 02/08/25 14:38 Oxygen Delivery Room Air 02/08/25 14:38 Temperature 36.3 C L 02/09/25 04:02 Pulse Rate 93 02/09/25 04:02 Respiratory Rate 18 02/09/25 04:02 Blood Pressure 149/87 H 02/09/25 04:02 Pulse Oximetry 95 02/09/25 04:02 Oxygen Delivery CPAP 02/09/25 01:55 <Gonzalez Avila MD - Last Filed: 02/09/25 04:20> MDM - Wound/Laceration MDM Narrative Medical decision making narrative: MSE by PEG in triage. <Lynn Martínez PA-C - Last Filed: 02/08/25 17:11> MSE by PEG in triage. 69 y/o male, with PMH of DM, who presents to the ED with concern for diabetic ulcer/open wound to his R foot. Patient's house piping inspector/lacquerer assisted in providing information. Reports wound to R lateral distal foot plantar surface, involving the pinky toe. Reports wound has been present for several months, became worse in November, has been seeing wound care and podiatry (Dr. Lafleur) As well as orthopedics with Dr. Hollis intermittently since then. Saw a wound care doctor at [place] yesterday and said that the bone was exposed and he needed hospitalization. Patient c/o pain with bearing weight on R foot. States his most recent A1c was 6.6%. He does not check his blood sugars regularly. Normal range of motion, no significant extremity edema. Left lower extremity has 2 small punctate well-healing ulcers over the anterior portion of the barrera and posterior left heel that do not appear clinically infected. Right foot has a open ulcer with purulent drainage along the 5th metatarsal aspect with some minor tenderness reproducible palpation. No overlying redness or streaking erythema. 2+ dorsalis pedis pulse. Warm extremity. Patient is hemodynamically stable at any tachycardia, fever, hypoxemia. Blood pressure 1/67. No pain or symptoms at rest but does have some reproducible pain over his open ulcer on the right foot consistent with a diabetic foot infection and potential for osteomyelitis. X-rays blood cultures and laboratory studies obtained. Patient placed on vancomycin cefepime for suspected diabetic foot infection. Patient received a fluid bolus. Patient has seen Orthopedics here at [facility] for his wound and prior fibular fraction left-sided which was evaluated and appears to be healing appropriately with some smaller non infected wounds noted on the left leg as well. Patient require admission for IV antibiotics and consultation with Surgical Services for potential debridement and treatment given that his x-ray shows osteomyelitis. Spoke to orthopedics provider over the phone who recommended wound care and general surgery consult while inpatient. Consult placed, IV antibiotics started. Awaiting discussion with hospitalist. Hospitalist accepted the patient to a [facility] bed at this time. Family members made aware of the plan. <Gonzalez Avila MD - Last Filed: 02/09/25 04:20> Medical Records Attestation: I reviewed the patient's medical records. <Gonzalez Avila MD - Last Filed: 02/09/25 04:20> Lab Data Attestation: I reviewed the patient's lab results. <Gonzalez Avila MD - Last Filed: 02/09/25 04:20> Result diagrams: 02/08/25 17:06 02/08/25 17:06 <Lynn Martínez PA-C - Last Filed: 02/08/25 17:11> Labs: Lab Results 02/08/25 02/08/25 Range/Units 17:06 20:28 WBC 9.9 (4.5-10.0) K/mm3 RBC 4.20 L (4.6-6.20) M/mm3 Hgb 12.6 L (14.0-18.0) g/dL Hct 38.3 L (42.0-52.0) % MCV 91.2 (80-100) fl MCH 30.0 (26-34) pg MCHC 32.9 (32-36) g/dl RDW 14.3 (11.5-14.5) % Plt Count 376 H (150-375) k/mm3 MPV 9.0 (7.4-10.4) fl Immature Gran % (Auto) 0.2 (0-0.5) % Neut % (Auto) 64.0 (45.5-73.1) % Lymph % (Auto) 22.9 (18.3-44.2) % [place] % (Auto) 10.0 H (2.6-8.5) % Eos % (Auto) 2.2 (0-4.4) % Baso % (Auto) 0.7 (0.2-1.2) % Lymph # (Auto) 2.26 (0.9-3.2) K/mm3 [place] # (Auto) 1.0 H (0.1-0.6) K/mm3 Eos # (Auto) 0.2 (0-0.3) K/mm3 Baso # (Auto) 0.1 (0.0-0.1) K/mm3 Abs Immat Gran (auto) 0.02 (0.00-0.031) K/mm3 Absolute Neuts (auto) 6.3 (1.3-6.7) K/mm3 Absolute Nucleated RBC 0.000 (0.0-0.012) K/mm3 Nucleated RBC % 0.0 (0.0-0.2) % ESR 55 H (0-20) mm/hr PT 15.2 H (11.1-14.7) Seconds INR 1.2 APTT 40.8 H (22.3-36.8) Seconds Sodium 135 L (137-145) mmol/L Potassium 4.3 (3.4-5.0) mmol/L Chloride 101 (98-107) mmol/L Carbon Dioxide 27 (22-30) mmol/L Anion Gap 7 (4-12) mmol/L BUN 13 (9-20) mg/dL Creatinine 1.23 (0.7-1.3) mg/dL Estim Creat Clear Calc 72 ml/min Estimated GFR 59 (59 - ) Glucose 117 H (65-110) mg/dL POC Capillary Glucose 157 H (65-105) mg/dl Lactic Acid 1.0 (0.7-2.0) mmol/L Calcium 9.3 (8.4-10.2) mg/dL Total Bilirubin 0.5 (0.2-1.3) mg/dL AST 23 (17-59) U/L ALT 15 (6-50) U/L Alkaline Phosphatase 68 (38-126) U/L C-Reactive Protein 6.6 H (<1.0) mg/dL Total Protein 7.5 (6.3-8.2) g/dL Albumin 4.0 (3.5-5.1) g/dL <Lynn Martínez PA-C - Last Filed: 02/08/25 17:11> Lab Results 02/08/25 02/08/25 Range/Units 17:06 20:28 WBC 9.9 (4.5-10.0) K/mm3 RBC 4.20 L (4.6-6.20) M/mm3 Hgb 12.6 L (14.0-18.0) g/dL Hct 38.3 L (42.0-52.0) % MCV 91.2 (80-100) fl MCH 30.0 (26-34) pg MCHC 32.9 (32-36) g/dl RDW 14.3 (11.5-14.5) % Plt Count 376 H (150-375) k/mm3 MPV 9.0 (7.4-10.4) fl Immature Gran % (Auto) 0.2 (0-0.5) % Neut % (Auto) 64.0 (45.5-73.1) % Lymph % (Auto) 22.9 (18.3-44.2) % [place] % (Auto) 10.0 H (2.6-8.5) % Eos % (Auto) 2.2 (0-4.4) % Baso % (Auto) 0.7 (0.2-1.2) % Lymph # (Auto) 2.26 (0.9-3.2) K/mm3 [place] # (Auto) 1.0 H (0.1-0.6) K/mm3 Eos # (Auto) 0.2 (0-0.3) K/mm3 Baso # (Auto) 0.1 (0.0-0.1) K/mm3 Abs Immat Gran (auto) 0.02 (0.00-0.031) K/mm3 Absolute Neuts (auto) 6.3 (1.3-6.7) K/mm3 Absolute Nucleated RBC 0.000 (0.0-0.012) K/mm3 Nucleated RBC % 0.0 (0.0-0.2) % ESR 55 H (0-20) mm/hr PT 15.2 H (11.1-14.7) Seconds INR 1.2 APTT 40.8 H (22.3-36.8) Seconds Sodium 135 L (137-145) mmol/L Potassium 4.3 (3.4-5.0) mmol/L Chloride 101 (98-107) mmol/L Carbon Dioxide 27 (22-30) mmol/L Anion Gap 7 (4-12) mmol/L BUN 13 (9-20) mg/dL Creatinine 1.23 (0.7-1.3) mg/dL Estim Creat Clear Calc 72 ml/min Estimated GFR 59 (59 - ) Glucose 117 H (65-110) mg/dL POC Capillary Glucose 157 H (65-105) mg/dl Lactic Acid 1.0 (0.7-2.0) mmol/L Calcium 9.3 (8.4-10.2) mg/dL Total Bilirubin 0.5 (0.2-1.3) mg/dL AST 23 (17-59) U/L ALT 15 (6-50) U/L Alkaline Phosphatase 68 (38-126) U/L C-Reactive Protein 6.6 H (<1.0) mg/dL Total Protein 7.5 (6.3-8.2) g/dL Albumin 4.0 (3.5-5.1) g/dL <Gonzalez Avila MD - Last Filed: 02/09/25 04:20> Imaging Data Attestation: I personally reviewed and interpreted this imaging study as follows: <Gonzalez Avila MD - Last Filed: 02/09/25 04:20> My impression: Impressions Foot X-Ray 02/08/25 17:23 IMPRESSION: 1. Significant erosive changes with pathological fracture of distal fifth metatarsal bone suggestive of osteomyelitis with pathologic fracture. <Gonzalez Avila MD - Last Filed: 02/09/25 04:20> Discharge Plan Discharge Clinical Impression: Osteomyelitis, Metatarsal fracture, pathologic, Diabetic foot infection <Lynn Martínez PA-C - Last Filed: 02/08/25 17:11> Patient Disposition: Still a Patient <Lynn Martínez PA-C - Last Filed: 02/08/25 17:11> Condition: Stable <Lynn Martínez PA-C - Last Filed: 02/08/25 17:11>
[2025-02-08 17:14] LABS: Hematocrit 38.3 % (42.0-52.0); Hemoglobin 12.6 g/dL (14.0-18.0); Immature Granulocyte Percent A 0.2 % (0-0.5); Lymphocytes Absolute Auto 2.26 K/mm3 (0.9-3.2); Mean Corpuscular HGB Conc 32.9 g/dl (32-36); Mean Corpuscular Hemoglobin 30.0 pg (26-34); Mean Corpuscular Volume 91.2 fl (80-100); Nucleated Red Blood Cells Absolute Auto 0.000 K/mm3 (0.0-0.012); Nucleated Red Blood Cells Perc 0.0 % (0.0-0.2); Platelet Count Result 376 k/mm3 (150-375); Red Blood Count 4.20 M/mm3 (4.6-6.20); White Blood Count 9.9 K/mm3 (4.5-10.0)
[2025-02-08 17:32] LABS: INR 1.2; Prothrombin Time 15.2 Seconds (11.1-14.7)
[2025-02-08 17:33] LABS: Partial Thromboplastin Time 40.8 Seconds (22.3-36.8)
--- OUTSIDE RECORDS SUMMARY | 2025-02-08 17:34 | XMS_ITS | Clinical Summary ---
Author Organization [facility] Address [address] [place] [address] Care Team Providers Care Dancing Teacher Name Role Phone Andrés Bradshaw DO Primary Care Provider Allergies Active Allergy Reactions [...] (1 - 1-dose 75+ series) 2032 Insurance [facility] Care Teams Dancing Teacher Relationship Specialty Start Date End Date Andrés Bradshaw DO [address] [facility] [address] [place] [address] PCP - General Internal Medicine 06/02/18
[2025-02-08 17:36] LABS: Alanine Aminotransferase 15 U/L (6-50); Albumin Level 4.0 g/dL (3.5-5.1); Alkaline Phosphatase 68 U/L (38-126); Anion Gap 7 mmol/L (4-12); Aspartate Amino Transferase 23 U/L (17-59); Bilirubin,Total 0.5 mg/dL (0.2-1.3); Blood Urea Nitrogen 13 mg/dL (9-20); CRP 6.6 mg/dL (<1.0); Calcium 9.3 mg/dL (8.4-10.2); Carbon Dioxide 27 mmol/L (22-30); Chloride 101 mmol/L (98-107); Estimated CRCL calculation 72 ml/min; Estimated Glomerular Filt Rate 59; Glucose 117 mg/dL (65-110); Potassium 4.3 mmol/L (3.4-5.0); Sodium 135 mmol/L (137-145); Total Protein 7.5 g/dL (6.3-8.2)
[2025-02-08 19:06] VITALS: BP 105/65; PULSE 81; RESP 16; TEMP 36.6; O2SAT 97
[2025-02-08 20:20] VITALS: BP 109/67; PULSE 81; RESP 18; O2SAT 98
--- OUTSIDE RECORDS SUMMARY | 2025-02-08 20:29 | XMS_ITS | Continuity of Care Document ---
Author Organization [employer], [facility] Address [address] [facility] [address] [place] [address] Assessment No assessment recorded. Plan of Treatment Reminders Order Date Submit Date Provider Last Modified By Organization Details Last Modified Time Details Appointments None record ed. Lab None record ed. Referral None record ed. Procedures None record ed. Surgeries None record ed. Imaging None record ed. Medication Orders None record ed. Patient TargetsNo targets recorded. Patient InstructionsNo instructions recorded. Reason for Referral None Reported. Results Created Date Observation Date Name Description Value Unit Range Abnormal Flag Note LastModifiedBy Organization Detail LastModifiedTime 01/17/2001/16/2025 XR, ankle No observ ation record ed. [facility] [address] [facility] [address], [place], [address], 01/17/2025 08:54:38 02/07/20 25 01/24/2025 XR, ankle , 3 or more view No observ ation record ed. [email or web address] [facility] [address] [place] [address], [address], 02/06/2025 15:32:55 Result Notes None recorded. Problems Name Problem SNOMED Code Status Onset Date Resolution Date Notes Provider Name and Address Organization Details Recorded Time Hypertensi ve disorder 85310552 Active Not Available [employer] 4 19:52:18 Hypothyroi dism 60942463 Active Caty Baez APRN [address], [address] , [facility] [employer] 4 14:57:24 Polyneurop athy 97439731 Active Caty Baez APRN [address], [place], [address] , [place] [facility] 4 14:57:39 Atrial fibrillati on 03959126 Active Caty Baez APRN [address], [place], [address] , [place] [facility] 4 14:56:38 Coronary arterioscl erosis 00150305 Active Caty Baez APRN [address], [place], [address] , [place] [facility] 4 14:56:57 Chronic kidney disease 262496846 Active Caty Baez APRN [address], [place], [address] , [place] [facility] 4 14:56:43 Diabetes mellitus 32741796 Active Caty Baez APRN [address], [place], [address] , [place] [facility] 4 14:56:59 Dyspnea on exertion 58866264 Active 2022 Not Available [facility] 4 19:52:18 Chronic cough 13920176 Active 2022 Caty Baez APRN [address], [place], [address] , [place] [facility] 4 14:56:40 Essential hypertensi on 82801205 Active 2022 Caty Baez APRN [address], [place], [address] , [facility] 4 14:57:06 Cigarette smoker 75862120 Active 2022 Not Available [facility] 4 19:52:18 Bilateral earache 010554964 Active 2022 Not Available [facility] 4 19:52:18 Pain in throat 690926579 Active 2022 Not Available [facility] 4 19:52:18 Coronary atheroscle rosis 567472305 Active 2022 Caty Baez APRN [address], [place], [address] , [employer] [facility] [employer] [facility] 14:57:03 Congestive heart failure 22098406 Active 2022 Caty Baez APRN [address], [place], [address] , [facility] [facility] [employer] [facility] 14:56:54 Chronic obstructiv e pulmonary disease 36634092 Active 2022 Caty Baez APRN [address], [place], [address] , [employer] [facility] [employer] [facility] 14:56:51 Gastroesop hageal reflux disease 877096608 Active 2022 Caty Baez APRN [address], [place], [address] , [facility] [facility] [employer] [facility] 14:57:09 Hyperlipid emia 78689055 Active 2022 Caty Baez APRN [address], [place], [address] , [employer] [facility] [employer] [facility] 14:57:12 Obstructiv e sleep apnea syndrome 39542697 Active 2023 Caty Baez APRN [address], [place], [address] , [facility] [employer] [facility] [employer] [facility] 14:57:42 Abscess of oral tissue 21091761 Active 2023 Olinda Trujillo MD [address], [place], [address] , [facility] [facility] [employer] [facility] 18:18:00 Serum creatinine above reference range 610806239 Active 2023 MARKEL Hodges [address], [place], [address] , [employer] [facility] 4 16:19:09 Nicotine dependence 20429028 Active 2023 MARKEL Hodges [address], [place], [address] , [facility] [employer] [facility] 4 15:33:35 Pain of bilateral knee joints 3175921450245 04 Active 2023 Caty Baez APRN [address], [place], [address] , [facility] [employer] [place] [facility] [employer] [facility] 4 11:17:59 Amnesia 52159782 Active 2023 Caty Baez APRN [address], [place], [address] , [facility] [employer] [place] [facility] [employer] [facility] 4 15:18:33 Post-traum atic stress disorder 59123232 Active 2023 Caty Baez APRN [address], [place], [address] , [facility] [employer] [place] [facility] [employer] [facility] 4 15:19:03 Muscle weakness 21176794 Active 2024 MARKEL Hodges [address], [place], [address] , [facility] [employer] [facility] 5 15:46:45 Memory impairment 536839246 Active 2024 MARKEL Hodges [address], [place], [address] , [facility] [employer] [facility] 5 12:09:35 Injury of right foot 356992432 Active 2024 MARKEL Hodges [address], [place], [address] , [facility] [employer] [facility] 5 12:07:17 Skin ulcer due to type 2 diabetes mellitus 4806549769438 01 Active 2024 Antonio Lopez DPM [address], [place], [address] , [facility] [employer] 09:02:37 Chronic osteomyeli tis of left foot 7166492003685 105 Active 2024 Antonio Lopez DPM [address] [facility] [address], [place], [address] , [facility] [employer] 09:03:02 Problem Notes None recorded. Procedures Surgical History Date Name Laterality Status Provider Name and Address Organization Details Recorded Time 5 Wound Care-Podiatry completed Prudence Martell RN [facility] [employer] [facility] 02/07/2025 16:39:10 Cardiac Stent Placement completed Ida Solano MA [facility] [employer] [facility] 07/13/2024 15:40:23 Imaging Results None recorded. Procedure Notes None recorded. Medical Equipment None Reported. Allergies Allergen ID Allergen Name Allergen Category Reaction Reaction Severity Criticality Documentation Date Start Date Code Code System Note Provider Name and Address Organization Details Recorded Time 71348 Substance with sulfonami de structure and antibacte rial mechanism of action (substanc e) medicatio n Not available Not available Not available 05/20/2022 51743 8003 SNOMED Not Available [facility] 3 10:50:09 47670 niacin medicatio n Not available Not available Not available 05/20/2022 7393 RxNorm Not Available [facility] 3 10:50:09 35658 lactose food,medi cation Not available Not available Not available 05/20/2022 6211 RxNorm Not Available [facility] 3 10:50:10 Medications Name Sig Start Date [...] TAKE 1 CAPSULE BY MOUTH TWICE DAILY 02/07 completed Not Available Not Available Not Available ipratropiu m 0.5 mg-albuter ol 3 mg (2.5 mg base)/3 mL nebulizati on soln USE 3 ML VIA NEBULIZE R FOUR TIMES DAILY NEEDED active Not Available Not Available No t Available clindamyci n HCl 300 mg capsule TAKE 1 CAPSULE BY MOUTH FOUR TIMES DAILY active Not Available Not [...] No t Available trazodone 100 mg tablet 02/07 completed Not Available Not Available Not Available OneTouch Ultra Test strips USE TO TEST BLOOD SUGAR FOUR TIMES DAILY active Not Available Not Available No t Available cephalexin 500 mg capsule TAKE 1 CAPSULE BY MOUTH EVERY 12 HOURS FOR 7 DAYS 02/07 completed Not Available Not Available Not Available pantoprazo le 40 mg tablet,del ayed [...] AREA THREE TIMES DAILY FOR 7 DAYS 02/07 completed Not Available Not Available Not Available digoxin 125 mcg (0.125 mg) tablet [...] 1 TABLET BY MOUTH EVERY 12 HOURS 02/07 completed Not Available Not Available Not Available risperidon e 1 mg tablet 06/10 completed Not Available Not Available Not Available diazepam 5 mg tablet Take 1 tablet 30 minutes before procedur e 02/22 completed Dental appts only Not Available Not Available Not Available amoxicilli n 875 mg-potassi um clavulanat e 125 mg tablet TAKE 1 TABLET BY MOUTH TWICE DAILY active Not Available Not Available No t Available nicotine 7 mg/24 hr daily transderma l patch Apply 1 patch every day by transder mal route. 02/07 completed Not Available Not Available Not Available neomycin-p olymyxin-h ydrocort 3.5 mg-10,000 unit/mL-1 % ear drops,susp 02/07 completed Not Available Not Available Not Available metoprolol tartrate 25 mg tablet Take [...] TABLET BY MOUTH DAILY IN THE MORNING 02/07 completed Not Available Not Available Not Available cholecalci ferol (vit D3)(bulk) 1 PO [...] EVERY MORNING. RINSE MOUTH AFTER EACH USE 02/07 completed Not Available Not Available Not Available melatonin 3 mg capsule Take 1 capsule [...] Available Not Available No t Available Vitals None Recorded Social History Question Answer Notes LastModified by Organizat ion Details LastModified Time Tobacco Smoking Status Current Every Day Smoker NANCY [place] [employer] 11/16/2022 14:54:02 Do You Have An Advance Directive? No Information not available 02/15/2024 What Is Your Level Of Caffeine Consumption? Occasional [id number] Information not available 05/20/2022 How Much Tobacco Do You Chew? None Information not available 02/15/2024 In The 14 Days Before Symptom Onset, Have You Had Close Contact With A Laboratory-confir med COVID-19 While That Case Was Ill? No [email or web address] Information not available 11/16/2022 In The 14 Days Before Symptom Onset, Have You Had Close Contact With A Person Who Is Under Investigation For COVID-19 While That Person Was Ill? No [email or web address] Information not available 11/16/2022 What Type Of Diet Are You Following? REGULAR [id number] Information not available 05/20/2022 What Was The Date Of Your Most Recent Tobacco Screening? 07/13/2024 [email or web address] Information not available 07/13/2024 What Is Your Relationship Status? Information not available 02/15/2024 Do You Use Your Seat Belt Or Car Seat Routinely? Yes Information not available 11/16/2022 At What Age Did You Start Smoking Tobacco? 20 [email or web address] Information not available 11/16/2022 How Much Tobacco Do You Smoke? 2 PPD [id number] Information not available 05/20/2022 Do You Participate In Social Media? No [email or web address] Information not available 11/16/2022 Has Tobacco Cessation Counseling Been Provided? No [email or web address] Information not available 11/16/2022 How Many Years Have You Smoked Tobacco? 47 [email or web address] Information not available 11/16/2022 Have You Recently Traveled Abroad? No [email or web address] Information not available 11/16/2022 Do You Have Any Dietary Restrictions? No [email or web address] Information not available 11/16/2022 How Many Years Have You Used Smokeless Tobacco? 0 Information not available 02/15/2024 Sex: Unknown Functional Status Question Answer Note LastModified by Organizat ion Details LastModified Time Do you use any illicit or recreational drugs? No [email or web address] Information not available 11/16/2022 Do you or have you ever used any other forms of tobacco or nicotine? No [email or web address] Information not available 11/16/2022 What is your level of alcohol consumption? None [id number] Information not available 05/20/2022 Do you or have you ever used smokeless tobacco? Never used smokeless tobacco Information not available 02/15/2024 What is your exercise level? Moderate Information not available 02/15/2024 Mental Status Question Answer Note LastModified by Organization D etails LastModified Time Do you feel stressed (tense, restless, nervous, or anxious, or unable to sleep at night)? [id number] [email or web address] Information not available 11/16/2022 Family History Relationship Description Onset Age of this Age Resolved Age Notes LastModified by Organization Details LastModified Time Mother Depressive disorder [id number] Not available 05/20/2022 10:42:40 Mother Hypertensive disorder [id number] Not available 05/20/2022 10:42:40 Mother Diabetes mellitus [id number] Not available 05/20/2022 10:42:40 Mother Arthritis Not availabl e 02/07/2025 15:23:48 Mother Hypercholest erolemia Not available 2023 11:13:17 Mother Disorder of thyroid gland Not available 2023 11:13:17 Mother Anxiety disorder Not available 2023 11:13:17 Mother Mental disorder Not available 2023 11:13:17 Father Alcoholism Not availab le 02/07/2025 15:23:48 Unspecified Relation Alcoholism keila molina Not available 02/07/2025 15:23:48 Unspecified Relation Alcoholism keila molina Not available 02/07/2025 15:23:48 Sister Hypertensive disorder Not available 2023 11:13:17 Medical History No medical history recorded. Immunizations Vaccine Type Date Status Note Provider Nam e and Address Organization Details Recorded Time COVID-19, mRNA, LNP-S, PF, 30 mcg/0.3 mL dose 1 completed Caty Baez APRN [address], [place], [address], [employer] [facility] [employer] [facility] 02/15/2024 11:12:14 COVID-19, mRNA, LNP-S, PF, 30 mcg/0.3 mL dose 1 completed Caty Baez APRN [address], [place], [address], [employer] [facility] [employer] 02/15/2024 11:12:14 Pneumococcal conjugate PCV20, polysaccharide PCG839 conjugate, adjuvant, PF 2 completed Caty Baez APRN [address], [place], [address], [facility] [facility] [employer] [facility] 02/15/2024 11:12:14 COVID-19, mRNA, LNP-S, PF, 30 mcg/0.3 mL dose, eben-sucrose 2 completed Caty Baez APRN [address], [place], [address], [facility] [facility] [employer] 02/15/2024 11:12:14 RSV, recombinant, protein subunit RSVpreF, adjuvant reconstituted, 0.5 mL, PF 4 completed Caty Baez APRN [address], [place], [address], [facility] [employer] [facility] [employer] 02/15/2024 11:12:14 Influenza, split virus, quadrivalent, PF 1 completed Caty Baez APRN [address], [place], [address], [place] [employer] 02/15/2024 11:12:14 Influenza, high-dose, quadrivalent, PF 4 completed Olinda Trujillo MD [address], [place], [address], [place] [employer] 04/20/2023 18:37:51 Past Encounters Encounter ID Performer Location Encounter Start Date Encounter Closed Date Diagnosis/Indication Diagnosis SNOMED-CT Code Diagnosis ICD10 Code Diagnosis IMO Codes Diagnosis Note [id number] MARKEL Hodges [facility] Primary Care [facility] [address] [facility] [address] [place] [address] 01/25/2025 11:28:45 01/25/2025 12:36:56 Injury of right foot 661007936 S91.301A [id number] Continue to follow podiatry. Memory impairment 112848 006 R41.3 757377 [id number] MARKEL Hodges [facility] Primary Care [facility] [address] [facility] [address] [place] [address] 02/01/2025 15:40:00 02/01/2025 16:15:54 Health Concerns Section Related Observation LastModified by Organization Detai ls LastModified Time None Recorded Concern Status LastModified by Organization Details LastModified Time None Recorded Payers Encounter Date Sequence Insurance Name Policy Number Policy Reed Covered Member ID Reed Member ID Guarantor Name 02/01/2025 1 [employer] [place]MEDICARE REPLAC[place]) [id number] Dionicio Ruiz [id number] Cas Ruiz 02/01/2025 2 FOR LIFE ( - MEDICARE SUPPLEMENT) Cas Ruiz [id number] Cas Ruiz
--- OUTSIDE RECORDS SUMMARY | 2025-02-08 20:29 | XMS_ITS | Clinical Summary ---
Author Organization [facility] Facility Address [address] [address] Care Team Providers Care Joss House Keeper Name Role Phone Olinda Trujillo MD Primary Care Provider [phone] Social History Tobacco Use Types Packs/Day Years [...] patient's age to complete this topic [place] [address] [place] [address] Medicare [facility] Care Teams Joss House Keeper Relationship Specialty Start Date End Date Olinda Trujillo MD [address] [place] [address] [place] [address] PCP - General Family Medicine 11/09/23
--- OUTSIDE RECORDS SUMMARY | 2025-02-08 20:29 | XMS_ITS | Data Portability ---
Author Organization [place] [employer], Main Office Address [address] [place] [address] Assessment Encounter Date Assessment Date Assessment LastModified by Organization Details LastModified Time 02/07/2025 02/07/2025 This note is dictated and transcribed by [email or web address]. Head Grinder variances may occur. Despite proofreading, typographical errors may occur. Occasional wrong-word or 'bexhr-t-lehl' substitutions may have occurred due to the inherent limitations of voice recording. Read the chart carefully and recognize, using context, where substitutions have occurred. [email or web address] Not available 02/08/2025 09:00:54 Plan of Treatment Reminders Order Date Submit Date Provider Last Modified By Organization Details Last Modified Time Details Appointments None recorded. Lab HbA1c (hemoglobi n A1c), blood 2024 025 MATTY [facility], [address], [address], [place], [address], 06:15:42 HbA1c (hemoglobi n A1c), blood 2024 025 [email or web address] [facility], [address], [place], [address], 16:00:22 HbA1c (hemoglobi n A1c), blood 2024 025 [email or web address] [facility], [address], [place], [address], 09:18:54 Referral neurologis t referral - Please call patient to schedule an appointmen t. Thank you. 2024 025 ATHENAFAX [facility], [address] [facility], [address], [place], [address], 10:32:52 home health referral - Please call patient to schedule an appointmen t. Thank you. 2024 025 [email or web address] [facility], [address], [place], [address], 09:35:39 wound care referral - Please call patient to schedule an appointmen t. Thank you. 2024 025 ATHENAFAX [facility], [address], [address], [place], [address], 10:33:[address] referral - Please call patient to schedule an appointmen t. Thank you. 2024 025 [email or web address] [facility] Referral Fax Line, [address], [address], [place], [address], 09:24:49 physical therapist referral - Please call patient to schedule. 2024 025 [email or web address] [facility], [address] [facility], [address], [place], [address], 10:49:53 Procedures None recorded. Surgeries None recorded. Imaging None recorded. Medication Orders Invokana 100 mg tablet 2024 025 ATHENAFAX [facility], [address] [facility], [address], [place], [address], 16:00:26 Rybelsus 3 mg tablet 2024 025 [email or web address] [id number], [address] [facility], [place], [place], [id number], 15:57:53 metoprolol tartrate 25 mg tablet 2024 025 [id number], [address] [facility], [place], [place], [id number], 16:01:44 Patient TargetsNo targets recorded. Patient InstructionsNo instructions recorded. Reason for Referral Physical Therapist Referral for Muscle weakness Please call patient to schedule. Referring Physician: Rosemary Wilson [facility] Medicine, Encounter Date: 07/13/2024 Cushion Former Referral for At rial fibrillation Please call patient to schedule an appointment. Thank you. Referring Physician: Rosemary Wilson [facility] Medicine, Encounter Date: 07/13/2024 Home Health Referral for Inj ury of right foot Please call patient to schedule an appointment. Thank you. Referring Physician: Rosemary Wilson [facility], Encounter Date: 01/25/2025 Neurologist Referral for Mem ory impairment Please call patient to schedule an appointment. Thank you. Referring Physician: Rosemary Wilson [facility] Medicine, Encounter Date: 01/25/2025 Please call patient to sched ule an appointment. Thank you. Referring Physician: Rosemary Wilson [facility], Encounter Date: 01/25/2025 Results Created Date Observation Date Name Description Value Unit Range Abnormal Flag Note LastModifiedBy Organization Detail LastModifiedTime 07/07/1907/07/2024 TSH+F REE T4 TSH 3.310 uIU/m L 0.450- 4.500 normal Not Available [facility] ([facility]) [address] [place], [address], 07/07/2024 09:44:56 07/07/1907/07/2024 TSH+F REE T4 T4,free(dire ct) 1.39 NG/dL 0.82-1 .77 normal Not Available [facility] ([facility]) [address] [place], [address], 07/07/2024 09:44:56 07/07/1907/07/2024 CBC WITH DIFFE RENTI AL/PL ATELE T WBC 11.8 x10e3 /uL 3.4-10 .8 above high normal Not Available [facility] ([facility]) [address] [place], [address], 07/07/2024 09:44:58 07/07/19 25 07/07/2024 CBC WITH DIFFE RENTI AL/PL ATELE T RBC 5.18 x10e6 /uL 4.14-5 .80 normal Not Available [facility] ([facility]) [address] [place], [address], 07/07/2024 09:44:58 07/07/19 25 07/07/2024 CBC WITH DIFFE RENTI AL/PL ATELE T hemoglobin 15.3 g/dL 13.0-1 7.7 normal Not Available [facility] ([facility]) [address] [place], [address], 07/07/2024 09:44:58 07/07/19 25 07/07/2024 CBC WITH DIFFE RENTI AL/PL ATELE T hematocrit 47.7 % 37.5-5 1.0 normal Not Available [facility] ([facility]) [address] [place], [address], 07/07/2024 09:44:58 07/07/1907/07/2024 CBC WITH DIFFE RENTI AL/PL ATELE T MCV 92 fL 79-97 normal Not Available [facility] ([facility]) [address] [place], [address], 07/07/2024 09:44:58 07/07/19 25 07/07/2024 CBC WITH DIFFE RENTI AL/PL ATELE T MCH 29.5 pg 26.6-3 3.0 normal Not Available [facility] ([facility]) [address] [place], [address], 07/07/2024 09:44:58 07/07/19 25 07/07/2024 CBC WITH DIFFE RENTI AL/PL ATELE T MCHC 32.1 g/dL 31.5-3 5.7 normal Not Available [facility] ([facility]) [address] [facility], [place], [address], 07/07/2024 09:44:58 07/07/19 25 07/07/2024 CBC WITH DIFFE RENTI AL/PL ATELE T RDW 13.9 % 11.6-1 5.4 Not Available [facility] ([facility]) [address] [facility], [place], [address], 07/07/2024 09:44:58 07/07/19 25 07/07/2024 CBC WITH DIFFE RENTI AL/PL ATELE T platelets 297 x10e3 /uL 150-45 0 normal Not Available [facility] ([facility]) [address] [facility], [place], [address], 07/07/2024 09:44:58 07/07/19 25 07/07/2024 CBC WITH DIFFE RENTI AL/PL ATELE T neutrophils 71 % not estab. normal Not Available [facility] ([facility]) [address] [facility], [place], [address], 07/07/2024 09:44:58 07/07/19 25 07/07/2024 CBC WITH DIFFE RENTI AL/PL ATELE T lymphs 20 % not estab. normal Not Available [facility] ([facility]) [address] [place], [address], 07/07/2024 09:44:58 07/07/19 25 07/07/2024 CBC WITH DIFFE RENTI AL/PL ATELE T monocytes 7 % not estab. normal Not Available [facility] ([facility]) [address] [place], [address], 07/07/2024 09:44:58 07/07/19 25 07/07/2024 CBC WITH DIFFE RENTI AL/PL ATELE T eos 1 % not estab. normal Not Available [facility] ([facility]) [address] [facility], [place], [address], 07/07/2024 09:44:58 07/07/19 25 07/07/2024 CBC WITH DIFFE RENTI AL/PL ATELE T basos 1 % not estab. normal Not Available [facility] ([facility]) [address] [facility], [place], [address], 07/07/2024 09:44:58 07/07/19 25 07/07/2024 CBC WITH DIFFE RENTI AL/PL ATELE T immature cells TRAVELING FREIGHT AGENT Not Available [facility] ([facility]) [address] [facility], [place], [address], 07/07/2024 09:44:58 07/07/19 25 07/07/2024 CBC WITH DIFFE RENTI AL/PL ATELE T neutrophils (absolute) 8.5 x10e3 /uL 1.4-7. 0 above high normal Not Available [facility] ([facility]) [address] [place], [address], 07/07/2024 09:44:58 07/07/19 25 07/07/2024 CBC WITH DIFFE RENTI AL/PL ATELE T lymphs (absolute) 2.3 x10e3 /uL 0.7-3. 1 normal Not Available [facility] ([facility]) [address] [place], [address], 07/07/2024 09:44:58 07/07/19 25 07/07/2024 CBC WITH DIFFE RENTI AL/PL ATELE T monocytes(ab solute) 0.8 x10e3 /uL 0.1-0. 9 normal Not Available [facility] ([facility]) [address] [place], [address], 07/07/2024 09:44:58 07/07/19 25 07/07/2024 CBC WITH DIFFE RENTI AL/PL ATELE T eos (absolute) 0.1 x10e3 /uL 0.0-0. 4 normal Not Available [facility] ([facility]) [address] [facility], [place], [address], 07/07/2024 09:44:58 07/07/19 25 07/07/2024 CBC WITH DIFFE RENTI AL/PL ATELE T baso (absolute) 0.1 x10e3 /uL 0.0-0. 2 normal Not Available [facility] ([facility]) [address] [facility], [place], [address], 07/07/2024 09:44:58 07/07/1907/07/2024 CBC WITH DIFFE RENTI AL/PL ATELE T immature granulocytes 0 % not estab. Not Available [facility] ([facility]) [address] [place], [address], 07/07/2024 09:44:58 07/07/19 25 07/07/2024 CBC WITH DIFFE RENTI AL/PL ATELE T immature grans (abs) 0.0 x10e3 /uL 0.0-0. 1 Not Available [facility] ([facility]) [address] [place], [address], 07/07/2024 09:44:58 07/07/1907/07/2024 CBC WITH DIFFE RENTI AL/PL ATELE T NRBC TRAVELING FREIGHT AGENT Not Available [facility] ([facility]) [address] [facility], [place], [address], 07/07/2024 09:44:58 07/07/19 25 07/07/2024 CBC WITH DIFFE RENTI AL/PL ATELE T hematology comments: TRAVELING FREIGHT AGENT Not Available [facility] ([facility]) [address] [facility], [place], [address], 07/07/2024 09:44:58 07/07/19 25 07/07/2024 COMP. METAB OLIC PANEL (14) glucose 154 mg/dL 70-99 above high normal Not Available [facility] ([facility]) [address] [place], [address], 07/07/2024 09:44:59 07/07/19 25 07/07/2024 COMP. METAB OLIC PANEL (14) BUN 17 mg/dL 8-27 normal Not Available [facility] ([facility]) [address] [place], [address], 07/07/2024 09:44:59 07/07/19 25 07/07/2024 COMP. METAB OLIC PANEL (14) creatinine 1.49 mg/dL 0.76-1 .27 above high normal Not Available [facility] ([facility]) [address] [place], [address], 07/07/2024 09:44:59 07/07/19 25 07/07/2024 COMP. METAB OLIC PANEL (14) eGFR 51 mL/mi n/1.7 3 >59 below low normal Not Available [facility] ([facility]) [address] [place], [address], 07/07/2024 09:44:59 07/07/19 25 07/07/2024 COMP. METAB OLIC PANEL (14) BUN/creatini ne ratio 11 10-24 normal Not Available [facility] ([facility]) [address] [place], [address], 07/07/2024 09:44:59 07/07/19 25 07/07/2024 COMP. METAB OLIC PANEL (14) sodium 139 mmol/ L 134-14 4 normal Not Available [facility] ([facility]) [address] [place], [address], 07/07/2024 09:44:59 07/07/19 25 07/07/2024 COMP. METAB OLIC PANEL (14) potassium 4.9 mmol/ L 3.5-5. 2 normal Not Available [facility] ([facility]) [address] [place], [address], 07/07/2024 09:44:59 07/07/19 25 07/07/2024 COMP. METAB OLIC PANEL (14) chloride 99 mmol/ L 96-106 normal Not Available [facility] ([facility]) [address] [place], [address], 07/07/2024 09:44:59 07/07/19 25 07/07/2024 COMP. METAB OLIC PANEL (14) carbon dioxide, total 22 mmol/ L 20-29 normal Not Available [facility] ([facility]) [address] [place], [address], 07/07/2024 09:44:59 07/07/19 25 07/07/2024 COMP. METAB OLIC PANEL (14) calcium 10.0 mg/dL 8.6-10 .2 normal Not Available [facility] ([facility]) [address] [place], [address], 07/07/2024 09:44:59 07/07/19 25 07/07/2024 COMP. METAB OLIC PANEL (14) protein, total 7.2 g/dL 6.0-8. 5 normal Not Available [facility] ([facility]) [address] [facility] [place], [address], 07/07/2024 09:44:59 07/07/19 25 07/07/2024 COMP. METAB OLIC PANEL (14) albumin 4.4 g/dL 3.9-4. 9 normal Not Available [facility] ([facility]) [address] [facility] [place], [address], 07/07/2024 09:44:59 07/07/19 25 07/07/2024 COMP. METAB OLIC PANEL (14) globulin, total 2.8 g/dL 1.5-4. 5 Not Available [facility] ([facility]) [address] [facility], [place], [address], 07/07/2024 09:44:59 07/07/19 25 07/07/2024 COMP. METAB OLIC PANEL (14) bilirubin, total 0.4 mg/dL 0.0-1. 2 normal Not Available [facility] ([facility]) [address] [facility] [place], [address], 07/07/2024 09:44:59 07/07/19 25 07/07/2024 COMP. METAB OLIC PANEL (14) alkaline phosphatase 73 IU/L 44-121 normal Not Available [facility] ([facility]) [address] [facility] [place], [address], 07/07/2024 09:44:59 07/07/19 25 07/07/2024 COMP. METAB OLIC PANEL (14) AST (SGOT) 15 IU/L 0-40 normal Not Available [facility] ([facility]) [address] [place], [address], 07/07/2024 09:44:59 07/07/19 25 07/07/2024 COMP. METAB OLIC PANEL (14) ALT (SGPT) 17 IU/L 0-44 normal Not Available [facility] ([facility]) [address] [place], [address], 07/07/2024 09:44:59 07/07/19 25 07/07/2024 LIPID PANEL cholesterol, total 118 mg/dL 100-19 9 normal Not Available [facility] ([facility]) [address] [place], [address], 07/07/2024 09:45:00 07/07/19 25 07/07/2024 LIPID PANEL triglyceride s 181 mg/dL 0-149 above high normal Not Available [facility] ([facility]) [address] [place], [address], 07/07/2024 09:45:00 07/07/19 25 07/07/2024 LIPID PANEL HDL cholesterol 33 mg/dL >39 below low normal Not Available [facility] ([facility]) [address] [place], [address], 07/07/2024 09:45:00 07/07/19 25 07/07/2024 LIPID PANEL VLDL cholesterol nehal 30 mg/dL 5-40 Not Available [facility] ([facility]) [address] [place], [address], 07/07/2024 09:45:00 07/07/19 25 07/07/2024 LIPID PANEL LDL chol calc ([facility]) 55 mg/dL 0-99 Not Available [facility]) [address] [facility], [place], [address], 07/07/2024 09:45:00 07/07/19 25 07/07/2024 LIPID PANEL LDL calc comment: TRAVELING FREIGHT AGENT Not Available [facility] ([facility]) [address] [facility], [place], [address], 07/07/2024 09:45:00 07/07/19 25 07/07/2024 HCV ANTIB ARCELIA RFX TO QUANT PCR HCV Ab NON REACTI VE non reacti ve Not Available [facility] ([facility]) [address] [place], [address], 07/07/2024 09:45:01 07/07/1907/07/2024 HCV ANTIB ARCELIA RFX TO QUANT PCR interpretati on: COMMEN T Not infec jyoti with HCV unles s early or acute infec tion is suspe cted (whic h may be delay ed in an immun ocomp romis ed indiv idual ), or other evide nce exist s to indic ate HCV infec tion. Not Available [facility] ([facility]) [address] [place], [address], 07/07/2024 09:45:01 07/07/19 25 07/07/2024 HEMOG LOBIN A1C hemoglobin A1C 8.7 % 4.8-5. 6 above high normal Predi abete s: 5.7 - 6.4 Diabe alvaro: >6.4 Glyce arturo contr ol for adult s with diabe alvaro: <7.0 Not Available [facility] ([facility]) [address] [facility], [place], [address], 07/07/2024 09:45:02 10/18/1910/18/2024 HEMOG LOBIN A1C hemoglobin A1C 7.0 % 4.8-5. 6 above high normal Predi abete s: 5.7 - 6.4 Diabe alvaro: >6.4 Glyce arturo contr ol for adult s with diabe alvaro: <7.0 Not Available [facility] ([facility]) [address] [facility], [place], [address], 10/18/2024 06:15:42 01/17/2001/16/2025 XR, ankle No observ ation record ed. [email or web address] [address], [place], [address], 01/17/2025 08:54:38 02/07/2001/24/2025 XR, ankle , 3 or more view No observ ation record ed. [email or web address] [address], [address], 02/06/2025 15:32:55 Result Notes None recorded. Problems Name Problem SNOMED Code Status Onset Date Resolution Date Notes Provider Name and Address Organization Details Recorded Time Hypertensi ve disorder 18966613 Active Not Available [employer] 4 19:52:18 Hypothyroi dism 23782903 Active Caty Baez APRN [address] [facility], [facility] [address], [place], [address] , [employer] Time 4 14:57:24 Polyneurop athy 25245134 Active Caty Baez APRN [address] [facility], [address], [place], [address] , [employer] Time 4 14:57:39 Atrial fibrillati on 15470960 Active Caty Baez APRN [address], [address], [place], [address] , [facility] [employer] [facility] 4 14:56:38 Coronary arterioscl erosis 14965245 Active Caty Baez APRN [address], [address], [place], [address] , [facility] [employer] [facility] 4 14:56:57 Chronic kidney disease 872313249 Active Caty Baez APRN [address], [address], [place], [address] , [facility] [employer] [facility] 4 14:56:43 Diabetes mellitus 45985942 Active Caty Beaz APRN [address], [address], [place], [address] , [facility] [employer] [facility] 4 14:56:59 Dyspnea on exertion 05832688 Active 2022 Not Available [facility] 4 19:52:18 Chronic cough 37463478 Active 2022 Caty Baez APRN [address], [address], [place], [address] , [facility] [employer] [facility] [employer] [facility] 4 14:56:40 Essential hypertensi on 48100824 Active 2022 Caty Baez APRN [address], [address], [place], [address] , [facility] [employer] [facility] 4 14:57:06 Cigarette smoker 16506427 Active 2022 Not Available [facility] 4 19:52:18 Bilateral earache 452119444 Active 2022 Not Available [employer] 4 19:52:18 Pain in throat 544463867 Active 2022 Not Available [facility] 4 19:52:18 Coronary atheroscle rosis 180175337 Active 2022 Caty Baez APRN [address], [address], [place], [address] , [place] [facility] 4 14:57:03 Congestive heart failure 98337161 Active 2022 Caty Baez APRN [address], [address], [place], [address] , [place] [facility] 4 14:56:54 Chronic obstructiv e pulmonary disease 25761951 Active 2022 Caty Baez APRN [address], [address], [place], [address] , [employer] [place] [facility] 4 14:56:51 Gastroesop hageal reflux disease 874322687 Active 2022 Caty Baez APRN [address], [address], [place], [address] , [place] [facility] 14:57:09 Hyperlipid emia 15476932 Active 2022 Caty Baez APRN [address], [address], [place], [address] , [employer] [place] [facility] 4 14:57:12 Obstructiv e sleep apnea syndrome 48127676 Active 2023 Caty Baez APRN [address], [address], [place], [address] , [place] [facility] 4 14:57:42 Abscess of oral tissue 29522040 Active 2023 Olinda Trujillo MD [address], [address], [place], [address] , [employer] [facility] 4 18:18:00 Serum creatinine above reference range 038058620 Active 2023 MARKEL Hodges [address], [address], [place], [address] , [place] [facility] 4 16:19:09 Nicotine dependence 64809823 Active 2023 MARKEL Hodges [address], [address], [place], [address] , [place] [facility] 4 15:33:35 Pain of bilateral knee joints 8288578685841 04 Active 2023 Caty Baez APRN [address], [address], [place], [address] , [place] [facility] 4 11:17:59 Amnesia 04977956 Active 2023 Caty Baez APRN [address], [address], [place], [address] , [place] [facility] 4 15:18:33 Post-traum atic stress disorder 20276236 Active 2023 Caty Baez APRN [address], [address], [place], [address] , [place] [facility] 4 15:19:03 Muscle weakness 24632770 Active 2024 MARKEL Hodges [address], [address], [place], [address] , [place] [facility] 5 15:46:45 Memory impairment 788403515 Active 2024 MARKEL Hodges [address], [address], [place], [address] , [place] [facility] 5 12:09:35 Injury of right foot 605854060 Active 2024 MARKEL Hodges [address], [address], [place], [address] , [place] [facility] 5 12:07:17 Skin ulcer due to type 2 diabetes mellitus 7115906495800 Active 2024 Antonio Lopez DPM [address], [address], [place], [address] , [place] [facility] 5 09:02:37 Chronic osteomyeli tis of left foot 5351347165056 105 Active 2024 Antonio Lopez DPM [address] [facility], [address], [place], [address] , [facility] [employer] [facility] 5 09:03:02 Problem Notes None recorded. Procedures Surgical History Date Name Laterality Status Provider Name and Address Organization Details Recorded Time 5 Wound Care-Podiatry completed Prudence Martell RN [facility] [employer] [facility] 02/07/2025 16:39:10 Cardiac Stent Placement completed Ida Solano MA [facility] [employer] [facility] 07/13/2024 15:40:23 Imaging Results None recorded. Procedure Notes None recorded. Medical Equipment None Reported. Allergies Allergen ID Allergen Name Allergen Category Reaction Reaction Severity Criticality Documentation Date Start Date Code Code System Note Provider Name and Address Organization Details Recorded Time 35336 Substance with sulfonami de structure and antibacte rial mechanism of action (substanc e) medicatio n Not available Not available Not available 05/20/2022 83896 8003 SNOMED Not Available [facility] 3 10:50:09 51180 niacin medicatio n Not available Not available Not available 05/20/2022 7393 RxNorm Not Available [facility] 3 10:50:09 31130 lactose food,medi cation Not available Not available Not available 05/20/2022 6211 RxNorm Not Available [facility] 3 10:50:10 Medications Name Sig Start Date [...] completed Not Available Not Available Not Available [employer] Ultra Test strips USE TO TEST BLOOD [...] 2024 active Not Available Not Available Not Laurita thompson Rybelsus 3 mg tablet Take 1 tablet(s ) every day by oral route. active Not Available Not Available No t Available Vitals Date Recorded Body height Body mass index (BMI) Body weight Body temperature Heart rate Oxygen saturation Pain severity - 0-10 verbal numeric rating [Score] - Reported Systolic And Diastolic Provider Name and Address Organization Details Last Updated DateTime 5 177.8 cm 42.2 kg/m2 382928. 16 g 97.7 [degF] 93 /min 97 % 0 130/78 mm[Hg] Ida Solano MA [facility] [employer] [facility] 5 15:39:37 Date Recorded Body height Body mass index (BMI) Body weight Body temperature Heart rate Oxygen saturation Systolic And Diastolic Provider Name and Address Organization Details Last Updated DateTime 5 177.8 cm 42.3 kg/m2 094390. 75 g 97.8 [degF] 96 /min 96 % 130/80 mm[Hg] GEOFF Franco [facility] [employer] [facility] 5 15:42:21 Date Recorded Body height Body mass index (BMI) Body weight Body temperature Heart rate Systolic And Diastolic Provider Name and Address Organization Details Last Updated DateTime 5 177.8 cm 42.3 kg/m2 723656. 75 g 71 [degF] 93 /min 114/72 mm[Hg] GEOFF Franco [facility] [employer] 5 12:01:50 Date Recorded Body height Body temperature Heart rate Oxygen saturation Systolic And Diastolic Provider Name and Address Organization Details Last Updated DateTime 5 177.8 cm 98.6 [degF] 90 /min 94 % 105/65 mm[Hg] Prudence Martell RN [facility] [employer] [facility] 5 15:57:49 Social History Question Answer Notes LastModified by Organizat ion Details LastModified Time Tobacco Smoking Status Current Every Day Smoker [facility] 11/16/2022 14:54:02 Do You Have An Advance Directive? No Information not available 02/15/2024 What Is Your Level Of Caffeine Consumption? Occasional [id number] Information not available 05/20/2022 How Much Tobacco Do You Chew? None Information not available 02/15/2024 In The 14 Days Before Symptom Onset, Have You Had Close Contact With A Laboratory-confir med COVID-19 While That Case Was Ill? No [email or web address] Information not available 11/16/2022 In The 14 Days Before Symptom Onset, Have You Had Close Contact With A Person Who Is Under Investigation For COVID-19 While That Person Was Ill? No [email or web address] Information not available 11/16/2022 What Type Of Diet Are You Following? REGULAR [id number] Information not available 05/20/2022 What Was The Date Of Your Most Recent Tobacco Screening? 07/13/2024 [email or web address] Information not available 07/13/2024 What Is Your Relationship Status? Information not available 02/15/2024 Do You Use Your Seat Belt Or Car Seat Routinely? Yes [email or web address] Information not available 11/16/2022 At What Age Did You Start Smoking Tobacco? 20 [email or web address] Information not available 11/16/2022 How Much Tobacco Do You Smoke? 2 PPD [id number] Information not available 05/20/2022 Do You Participate In Social Media? No [email or web address] Information not available 11/16/2022 Has Tobacco Cessation Counseling Been Provided? No [email or web address] Information not available 11/16/2022 How Many Years Have You Smoked Tobacco? 47 Information not available 11/16/2022 Have You Recently Traveled Abroad? No [email or web address] Information not available 11/16/2022 Do You Have Any Dietary Restrictions? No [email or web address] Information not available 11/16/2022 How Many Years Have You Used Smokeless Tobacco? 0 Information not available 02/15/2024 Sex: Unknown Functional Status Question Answer Note LastModified by Organizat ion Details LastModified Time Do you use any illicit or recreational drugs? No [email or web address] Information not available 11/16/2022 Do you or have you ever used any other forms of tobacco or nicotine? No [email or web address] Information not available 11/16/2022 What is your level of alcohol consumption? None [id number] Information not available 05/20/2022 Do you or have you ever used smokeless tobacco? Never used smokeless tobacco Information not available 02/15/2024 What is your exercise level? Moderate Information not available 02/15/2024 Mental Status Question Answer Note LastModified by Organization D etails LastModified Time Do you feel stressed (tense, restless, nervous, or anxious, or unable to sleep at night)? [id number] [email or web address] Information not available 11/16/2022 Family History Relationship Description Onset Age of this Age Resolved Age Notes LastModified by Organization Details LastModified Time Mother Depressive disorder [id number] Not available 05/20/2022 10:42:40 Mother Hypertensive disorder [id number] Not available 05/20/2022 10:42:40 Mother Diabetes mellitus [id number] [id number] Not available 05/20/2022 10:42:40 Mother Arthritis Not availabl e 02/07/2025 15:23:48 Mother Hypercholest erolemia Not available 2023 11:13:17 Mother Disorder of thyroid gland Not available 2023 11:13:17 Mother Anxiety disorder Not available 2023 11:13:17 Mother Mental disorder Not available 2023 11:13:17 Father Alcoholism Not availab le 02/07/2025 15:23:48 Unspecified Relation Alcoholism siblin g Not available 02/07/2025 15:23:48 Unspecified Relation Alcoholism siblin g Not available 02/07/2025 15:23:48 Sister Hypertensive disorder Not available 2023 11:13:17 Medical History No medical history recorded. Immunizations Vaccine Type Date Status Note Provider Nam e and Address Organization Details Recorded Time COVID-19, mRNA, LNP-S, PF, 30 mcg/0.3 mL dose completed Caty Baez, [employer] [address] [facility], [place], [address], [facility] 02/15/2024 11:12:14 COVID-19, mRNA, LNP-S, PF, 30 mcg/0.3 mL dose 1 completed Caty Baez APRN [address], [address], [place], [address], [facility] 02/15/2024 11:12:14 Pneumococcal conjugate PCV20, polysaccharide [id number] conjugate, adjuvant, PF 2 completed Caty Baez APRN [address], [address], [place], [address], [facility] 02/15/2024 11:12:14 COVID-19, mRNA, LNP-S, PF, 30 mcg/0.3 mL dose, eben-sucrose 2 completed Caty Baez APRN [address], [address], [place], [address], [facility] 02/15/2024 11:12:14 RSV, recombinant, protein subunit RSVpreF, adjuvant reconstituted, 0.5 mL, PF 4 completed Caty Baez APRN [address], [address], [place], [address], [facility] 02/15/2024 11:12:14 Influenza, split virus, quadrivalent, PF 1 completed Caty Baez APRN [address], [address], [place], [address], [facility] 02/15/2024 11:12:14 Influenza, high-dose, quadrivalent, PF 4 completed Olinda Trujillo MD [address], [address], [place], [address], [facility] 04/20/2023 18:37:51 Past Encounters Encounter ID Performer Location Encounter Start Date Encounter Closed Date Diagnosis/Indication Diagnosis SNOMED-CT Code Diagnosis ICD10 Code Diagnosis IMO Codes Diagnosis Note [id number] CAMRON Mcfarlane [facility] Primary Care [address] [place] [address] 12/15/2021 00:00:00 12/15/2021 18:18:14 [id number] CAMRON Mcfarlane [facility] [address] [facility] [address] [place] [address] 02/02/2022 00:00:00 02/02/2022 17:58:01 [id number] Olinda Trujillo MD [facility] Primary Care [address] [place] [address] 03/20/2022 00:00:00 03/20/2022 19:51:25 [id number] Marie Marinelli [facility] [place] [address] [place] [address] 05/01/2022 00:00:00 05/01/2022 16:05:17 [id number] CAMRON Mcfarlane [facility] Primary Care [address] [facility] [place] [address] 05/22/2022 15:30:07 05/22/2022 16:14:48 Atrial fibrillation 27944017 I48.91 He is tachycardi c at visit. Continue follow-up with cardiologi . Additional testing has been completed, awaiting follow-up to review results. Advised to sign record of release to get results to us as well at next visit. Essential hypertension 67590524 I10 Repeat BP 142/90.Adv ised to continue to monitor at home with blood pressure readings. Cigarette smoker 5182121 7 F17.210 2ppd for at least 40 years.Enco uraged smoking cessation. Bilateral earache 925126 003 H92.03 Most likely turning chronic from smoking.Dr montenegro did provide relief last time, requesting again. Pain in throat 548057134 R07.0 Chronic. Advised to continue otc/at home remedies. Smoking cessation. [id number] CAMRON Mcfarlane [facility] [place] [address] [place] [address] 06/15/2022 15:27:22 06/16/2022 16:28:07 Coronary atherosclerosis 845379629 I25.10 Continue current medication s; follow-up with cardiology Congestive heart failure 21361821 I50.9 CT showed pulmonary edema, was advised to continue diuretics, entresto, jardiance, lasix and metoprolol per cardiology .Continue f/u with cardiology (followed by Dr. Juarez inpatient) . Chronic ob structive pulmonary disease 81224796 J44.9 Had home oxygen evaluation and did not need O2 on discharge. CXR did not show any signs of pneumonia but due to infiltrate s and COPD he was given abx treatment. Continue f/u with pulmonolog y. [id number] CAMRON Mcfarlane [facility] Primary Care [address] [place] [address] 07/03/2022 14:52:24 07/03/2022 16:09:13 Polyneuropathy 84753686 G62.9 Bilateral hands and feet.Start Gabapentin 300mg TID. Essential hypertension 66225666 I10 Repeat BP 142/84.Aleksandar e blood pressures have been running good, but buckle stapler in room states he has been starting to eat more ramen noodles and drinking sodas, eating very high sodium diet.Advis ed to continue to monitor at home with blood pressure readings and work on diet. Congestive heart failure 57447659 I50.9 He had f/u with cardiology , Dr. Juarez about 2 weeks ago. Continue regular follow-up. [id number] CAMRON Mcfarlane [facility] Primary Care [address] [place] [address] 08/04/2022 14:52:48 08/04/2022 16:40:42 Essential hypertension 77956958 I10 Improved.D iscussed healthy eating and continuing to work on decreasing sodium.Adv ised to continue to monitor at home with blood pressure readings and work on diet.Bring BP log to each visit. Polyneuropathy 20986913 G62.9 Bilateral hands and feet. Improved.C ontinue Gabapentin 300mg TID. Congestive heart failure 66230208 I50.9 Continue f/u with Dr. Juarez. [id number] Olinda Trujillo MD [facility] Primary Care [address] [facility] [place] [address] 11/16/2022 14:53:45 11/16/2022 15:24:00 Diabetes mellitus 90433250 E11.9 in excellent dncppfec6m 6.6continu e diet changesrep eat labs in 3 months Essential hypertension 03959219 I10 in good controlcut back ramen noodles to twice per week Hypothyroidism 60075420 E03.9 TSH normalrepe at labs in 3 months Hyperlipidemia 72296895 E78.5 Z79.899 In good control [id number] Olinda Trujillo MD [facility] Primary Care [facility] [address] [facility] [address] [facility] [place] [address] 04/07/2023 15:00:18 04/07/2023 16:01:08 Diabetes mellitus 60748882 E11.9 in excellent egizxlpj9t 6.6continu e diet changesrep eat labs in 3 months update 04/07/23: a1c increased to 8.7glipizi de Er 5 mg dailywork on diet changesf/u in 3 months Administra tion of influenza vaccine 02266902 Z23 [id number] Olinda Trujillo MD [facility] Primary Care [facility] [address] [facility] [address] [facility] [place] [address] 07/08/2023 15:27:04 07/08/2023 16:14:47 Diabetes mellitus 63501906 E11.9 in excellent wqdxlzxi4b 6.6continu e diet changesrep eat labs in 3 months update 04/07/23: a1c increased to 8.7glipizi de Er 5 mg dailywork on diet changesf/u in [address] Weathers refer for diabetic eye examincrea se glipizide ER 10 mg dailyf/u in 3 months Obstructiv e sleep apnea syndrome 63867230 G47.33 will contact IV and respirator y care about getting settings adjusted Essential hypertension 77141967 I10 in good controlcut back ramen noodles to twice per week Hypothyroidism 58411168 E03.9 TSH normalrepe at labs in 3 months Hyperlipidemia 57146128 E78.5 Z79.899 In good control Screening for malignant neoplasm of prostate 640539177 Z12.5 [id number] MARKEL Hodges [facility] Primary Care [address] [place] [address] 11/08/2023 15:56:53 11/08/2023 16:18:07 Diabetes mellitus 47576665 E11.9 A1c 7.7 in October1c 8.3 in Juneontin ue medication s, follow up in 3 months. Serum crea tinine above reference range 396198936 R79.89 [id number] Jeri colbert MD [facility] Primary Care [address] [place] [address] 02/23/2024 14:33:08 02/23/2024 15:58:22 Pain of bilateral knee joints 3341754480 06752 M25.561 M25.562 Diabetes mellitus 747256 09 E11.9 Hyperlipidemia 20885456 E78.5 Z79.899 Hepatitis C screening 41 9389985 Z11.59 Screening for malignant neoplasm of colon 105014425 Z12.11 [id number] MARKEL Hodges [facility] Primary Care [address] [place] [address] 07/13/2024 15:28:06 07/13/2024 16:21:12 Muscle weakness 23304119 M62.81 Will refer to physical therapy as listed below.Disc ussed daily exercise to help improve strength. Atrial fibrillation 4943 6004 I48.91 Will refill meds as listed below.Rosalie ent aware to check pulse at least once daily and contact office in one week with readings.D iscussed medication compliance . Diabetes mellitus 389428 09 E11.9 A1c 7.7 in October1c 8.3 in June 2023 Body mass index 40+ - severely obese 267199080 Z68.41 Weight: 294 poundsBMI: 42.2Discus sed healthy diet and routine exercise.P atient verbalized understand ing to increased fresh fruits and vegetables as well as protein. [id number] MARKEL Hodges [facility] Primary Care [address] [place] [address] 10/17/2024 15:22:28 10/17/2024 16:16:48 Diabetes mellitus 82333712 E11.9 A1c 8.7 in June 7.7 in October 8.3 in June 2023 [id number] MARKEL Hodges [facility] Primary Care [facility] [address] [facility] [address] [place] [address] 01/25/2025 11:28:45 01/25/2025 12:36:56 Injury of right foot 748317820 S91.301A 8384465672 Continue to follow podiatry. Memory impairment 598474 006 R41.3 157334 [id number] MARKEL Hodges [place] [place] [facility] [address] [facility] [address] [place] [address] 02/01/2025 15:40:00 02/01/2025 16:15:54 [id number] Antonio Lopez DPM [facility] [address] [place] [address] 02/07/2025 15:01:08 02/08/2025 09:04:24 Skin ulcer due to type 2 diabetes mellitus 5734366133 98741 E11.622 [id number] currently on clindamyci n- continueBe tadine wet-to-dry dailyofflo ading at all timesrecom mend patient immediatel y be transferre d to the emergency room for further evaluation admission- - discuss this in length with caregiver and patient- both understand directions and will go to the emergency room Chronic os teomyelitis of left foot [id number] 470809 M86.672 76993710 5th metatarsal head- leftas above Health Concerns Section Related Observation LastModified by Organization Detai ls LastModified Time None Recorded Concern Status LastModified by Organization Details LastModified Time None Recorded Advance Directives Directive N: Payers Insurance Date Sequence Insurance Name Policy Number Policy Reed Covered Member ID Reed Member ID Guarantor Name 02/07/2025 1 [facility] (MEDICARE REPLACEMENT HMO) [id number] Dionicio Ruiz [id number] Cas Ruiz 02/02/2025 2 [facility] () Cas Ruiz [id number] Cas Ruiz 02/02/2025 2 [employer] ( - MEDICARE SUPPLEMENT) Cas Ruiz [id number] Cas Ruiz Notes Date Note Type Note Provider Name and Address Organization Details Recorded Time 07/13/2024 text/html ROS as noted in the HPI Patient is a 69 year old male that presents to the office for follow up. Patient is accompanied by caregiver, Love. Patient reports increased weakness, states I feel like my bones are giving out when I walk. Patient denies numbness and tingling in lower extremities. Patient has not been to net architect in several years because he does not like the way he looks. Patient reports going to the net architect brings back memories of his past so he chooses not to go. Patient would like a referral for a new female net architect. MARKEL Hodges [employer], [place], [address], [employer] Time 07/16/2024 21:36:42 10/17/2024 text/html Patient is a 69 year old male that presents to the office for 3 month follow up. Patient has stopped taking all of his diabetes medications. Invokanna and Jardiance were stopped 3 months ago, Rybelsus was stopped 6 days ago due to dizziness. Patient continues to work on diet. Patient did not follow up with net architect. MARKEL Hodges [employer], [place], [address], [employer] Time 10/17/2024 20:23:58 01/25/2025 text/html ROS as noted in the HPI Patient is a 69 year old male that presents to the office to discuss home health. Patient is in wheelchair and is accompanied by caregiver Love. Patient is needing home health and/or wound care for right foot wound. Patient is seeing podiatry routinely however patient is not able to keep up with wound care between appts. Patient is also suppose to be wearing a boot on his left foot due to fracture. MARKEL Hodges [employer], [place], [address], [employer] Time 01/25/2025 15:58:58 02/07/2025 text/html . Patient is a 69-year-old male he presents the office with multiple wounds of the right lower extremity. Patient states these wounds have been present since November and have slowly worsened it is worse to the right lateral foot. On presentation patient has significant necrosis with a large wound over 5th metatarsal head. Patient denies any pain to the area. Patient denies any fever, chills, nausea vomiting. Patient states he has been trying to keep the wounds clean and dry. Patient denies any other complaints. Antonio Lopez DPM [address] [facility] [address], [place], [address], [place] [facility] 02/08/2025 09:04:23
--- OUTSIDE RECORDS SUMMARY | 2025-02-08 20:30 | XMS_ITS | Patient Health Record ---
Author Organization [facility] Address [address] [place] [address] Care Team Providers Care Manager Facility Name Role Phone Rosemary Avila Primary Care Provider Qian Ambrocio Unavailable [phone] Allergies Allergen (clinical drug ingredient) Drug/Non Drug Allergy documented on EMR Reaction Allergy Type Onset Date Status niacin Niacin Unknown Drug Allergy Active Substance with sulfonamide structure and antibacterial mechanism of action (substance) Sulfa Antibiotics Unknown Drug Allergy Active Results Component Value Reference Range Flag Notes PRESCRIBED DRUGS, medMATCH(R ) (26432) Reviewed date:05/02/2024 02:59:53 PM Interpretation: Performing Lab:[id number] Maria Del Carmen Rivera, [id number] Deepak Coyle MD Notes/Report: FASTING: NO medMATCH Summary Prescribed Prescribed Not Prescribed Consistent Inconsistent Inconsistent Aminoclonazepam DRUG MONITOR, BENZO, QN, URI NE ([id number]) Reviewed date:05/02/2024 02:59:24 PM Interpretation: Performing Lab:[facility] [id number] Mittel Miguel, Hong [id number] Damian Wadsworth, Director - [address] [address] [facility] Notes/Report: FASTING: NO Alphahydroxyalprazolam NEGATIVE <25 ng/mL [...] analytical performance characteristics have been determined by [facility]. It has not been cleared or approved by the FDA. This assay has been validated pursuant to the CLIA regulations and is used for clinical purposes. medMATCH(R) enables providers to identify if drug use is consistent or inconsistent with a corresponding prescribed medication(s) list. Healthcare Providers needing Interpretation assistance, please contact us at [phone] ( ) M-F, 8am to 10pm EST [...] Oral Once a day; Duration: 30 days appointment needed Active ProAir HFA 108 (90 Base) MCG/ACT Aerosol Solution Inhalation 07/13/2023 Active Januvia 100 MG Tablet Oral 07/13/2023 Not-Taking Gabapentin 300 MG Capsule Oral 07/13/2023 Active Losartan Potassium 25 MG Tablet Oral 07/13/2023 Not-Taking Ipratropium-Albuter ol 0.5-2.5 (3) MG/3ML Solution Inhalation 07/13/2023 Active OneTouch Ultra Strip In Vitro 07/13/2023 Not-Taking clonazePAM 0.5 MG Tablet 1 tablet Oral twice a day; Duration: 30 days 02/06/2025 Active Multivitamin - Tablet 1 tablet Orally Once a day Active Paliperidone ER 3 MG Tablet Extended Release 24 Hour 1 tablet in the morning Oral Once a day; Duration: 30 days Active Magnesium Oxide (Elemental) 400 MG Tablet Oral *Reorder from Keelvar for eRx and Interaction Alerts* 07/13/2023 Active [...] Powder Breath Activated Inhalation *Pick strength-form from Keelvar for eRX* 07/13/2023 Not-Taking Pantoprazole Sodium 40 MG Tablet Delayed Release Oral 07/13/2023 Active Neomycin-Polymyxin- HC 3.5-06109-2 Suspension Otic 07/13/2023 Not-Taking Eliquis 5 MG [...] W/U Status Risk Notes Problem Tobacco user (707009388) Nicotine dependence, unspecified, uncomplicated (F17.200) 04/27/19 Active confirmed Problem Schizoaffective disorder, bipolar type (74380955) Schizoaffective disorder, bipolar type (F25.0) 07/13/19 Active confirmed Problem Generalized anxiety disorder (02769051) Generalized anxiety disorder (F41.1) 07/13/19 Active confirmed Problem Posttraumatic stress disorder (15582090) Post-traumatic stress disorder, chronic (F43.12) 07/13/19 24 Active confirmed Problem Primary hypersomnia (91895478) 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) 07/13/19 24 Active confirmed Problem Screening for cardiovascular system disease (650355431) Encounter for screening for cardiovascular disorders (Z13.6) Active confirmed Problem Long-term current use of drug therapy (827475995) 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) 07/13/19 24 Active confirmed Problem Tobacco use (330510633) Nicotine use (Z72.0) Active confirmed Problem Amnesia (86405273) Memory loss o r impairment (R41.3) Active confirmed Vital Signs Heart Rate 72 /min 10/26/2024 Respiratory Rate 18 /min 10/26/2024 Height-cm 180.34 cm 10/26/2024 Blood pressure diastolic 68 mm Hg 10/26/2024 Weight-kg 131.54 kg 10/26/2024 Height 71.00 in 10/26/2024 Blood pressure systolic 110 mm Hg 10/26/2024 Weight 290 lbs 10/26/2024 BMI 40.44 kg/m2 10/26/2024 Encounters Encounter Location Date Provider Diagnosis [facility] [place] [address] [facility] [address] [place] [address] 04/18/2024 Qian Sherman Schizoaffective disorder, bipolar type F25.0 ; Generalized anxiety disorder F41.1 ; Primary hypersomnia F51.11 ; Nicotine dependence, unspecified, uncomplicated F17.200 ; Post-traumatic stress disorder, chronic F43.12 and Other residential (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 Z79.899 [facility] [address] [place] [address] 07/11/2024 Qian Sherman Schizoaffective disorder, bipolar type F25.0 ; Generalized anxiety disorder F41.1 ; Primary hypersomnia F51.11 ; Nicotine dependence, unspecified, uncomplicated F17.200 ; Post-traumatic stress disorder, chronic F43.12 ; 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 (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 Z79.899 ; Nicotine use Z72.0 and Encounter for screening for cardiovascular disorders Z13.6 [facility] [address] [place] [address] 10/26/2024 Qian Sherman Schizoaffective disorder, bipolar type F25.0 ; Generalized anxiety disorder F41.1 ; Primary hypersomnia F51.11 ; Nicotine dependence, unspecified, uncomplicated F17.200 ; Post-traumatic stress disorder, chronic F43.12 ; Other residential (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 Z79.899 ; Nicotine use Z72.0 ; Encounter for screening for cardiovascular disorders Z13.6 and Memory loss or impairment R41.3 [facility] [address] [place] [address] 12/14/2024 Qian Sherman [facility], [facility] [address] [facility] [address] [place] [address] 03/06/2024 Qian Therpia [facility], [facility] [address] [address] 07/25/2024 Qian Therpia [facility], [facility] [address] [facility] [address] [place] [address] 07/26/2024 Qian Therpia [facility], [facility] [address] [address] 09/06/2024 Qianmegan Sherman Schizoaffective disorder, bipolar type F25.0 and Generalized anxiety disorder F41.1 [facility] [address] [facility] [address] [place] [address] 09/27/2024 Qian Therpia Generalized anxiety disorder F41.1 [facility] [address] [facility] [address] [place] [address] 10/27/2024 Qian Therpia [facility], [facility] [address] [facility] [address] [place] [address] 01/05/2025 Qian Therpia Generalized anxiety disorder F41.1 [facility] [address] [place] [address] 01/23/2025 Qian Therpia [facility], [facility] [address] [address] 02/06/2025 Qian Therpia Generalized anxiety disorder F41.1 Assessments Encounter Date Diagnosis (ICD Code) Assessment Notes Treatment Notes Treatment Clinical Notes Section Notes 04/18/2024 Schizoaffective disorder, bipolar type (ICD-10 - F25.0) patient recommended to see civil celebrant and refused- reported stopped all heart rx [...] products and stop smoking hotline given http_s://www.davon. org/Rxmxf-Gefvzq-I llness/Treatments/ Nnqski-Irhnze-Walv cations http_s://www.davon. org/Uvpvu-Qaudex-Y llness/Mental-Heal th-Conditions http_s://CHOOMOGO.com/depression /rtz-kicmmcqtz-kxc llifl-iu-dnsfcydzj n#treatments http__s://www.nimh .nih.gov/health/to pics/mental-health -medications http__s://www.davon .org/About-Mental- Illness/Treatments /Irqjcd-Dhfssv-Zxk ications educated on all medications, benefits, side [...] (ICD-10 - F25.0) patient recommended to see civil celebrant and refused- reported stopped all heart rx [...] PCP 07/13/24 and strongly recommended to see civil celebrant - reported weakness Anxiety Clonazpeam 0.5 mg [...] products and stop smoking hotline given http_s://www.davon. org/Omnhs-Glsbzl-H llness/Treatments/ Asfckc-Byajgq-Xdup cations http_s://www.davon. org/Jhkfe-Duxzor-F llness/Mental-Heal th-Conditions http_s://[employer]/depression /cir-vaxztbwaf-ynb itrhv-mg-gjigcatln n#treatments http__s://www.nimh .nih.gov/health/to pics/mental-health -medications http__s://www.davon .org/About-Mental- Illness/Treatments /Jnhklw-Erbvon-Ssg ications educated on all medications, benefits, side [...] 09/27/2024 Generalized anxiety disorder (ICD-10 - F41.1) 01/05/2025 Generalized anxiety disorder (ICD-10 - F41.1) 02/06/2025 Generalized anxiety disorder (ICD-10 - F41.1) 09/06/2024 Schizoaffective disorder, bipolar type (ICD-10 - F25.0) 10/26/2024 Schizoaffective disorder, bipolar type (ICD-10 - F25.0) patient recommended to see civil celebrant and refused- reported stopped all heart rx [...] PCP 07/13/24 and strongly recommended to see civil celebrant - reported weakness 2. Anxiety Clonazpeam 0.5 [...] patient has provider and recommend MRI http_s://www.davon. org/Gaxnt-Qxeugc-O llness/Treatments/ Pbpmdb-Ajljpk-Yqsv cations http_s://www.davon. org/Keipt-Zaufly-H llness/Mental-Heal th-Conditions http_s://psychcent [employer].com/depression /fvi-vmlsoiagw-smo pxdig-sm-lwlnprhur n#treatments http__s://www.nimh .nih.gov/health/to pics/mental-health -medications http__s://www.davon .org/About-Mental- Illness/Treatments /Amqblw-Dqbhac-Yea ications educated on all medications, benefits, side [...] (ICD-10 - F41.1) patient recommended to see civil celebrant and refused- reported stopped all heart rx [...] PCP 07/13/24 and strongly recommended to see civil celebrant - reported weakness 2. Anxiety Clonazpeam 0.5 [...] patient has provider and recommend MRI http_s://www.davon. org/Akvhc-Kuyihb-Y llness/Treatments/ Hdpjfi-Iniwsh-Qjgc cations http_s://www.davon. org/Tjxgr-Ftgkvf-R llness/Mental-Heal th-Conditions http_s://CHOOMOGO.Loopcam/depression /gla-mgmrmsfse-kks kkxjl-qa-zidygjvbk n#treatments http__s://www.nimh .nih.gov/health/to pics/mental-health -medications http__s://www.davon .org/About-Mental- Illness/Treatments /Sgshoz-Kfocal-Rws ications educated on all medications, benefits, side [...] neurotoxicity and interactions with prescribed medications. 10/26/2024 Primary hypersomnia (ICD-10 - F51.11) patient recommended to see civil celebrant and refused- reported stopped all heart rx [...] PCP 07/13/24 and strongly recommended to see civil celebrant - reported weakness 2. Anxiety Clonazpeam 0.5 [...] patient has provider and recommend MRI http_s://www.davon. org/Cyvgz-Lryito-D llness/Treatments/ Qzgoup-Irpfbp-Jdkv cations http_s://www.davon. org/Oryya-Sbkgyx-T llness/Mental-Heal th-Conditions http_s://[employer].com/depression /vsm-rrwvwqjqs-usg dyope-aq-qtrxyndva n#treatments http__s://www.nimh .nih.gov/health/to pics/mental-health -medications http__s://www.davon .org/About-Mental- Illness/Treatments /Rgqttu-Mltrra-Xsj ications educated on all medications, benefits, side [...] neurotoxicity and interactions with prescribed medications. 09/06/2024 Generalized anxiety disorder (ICD-10 - F41.1) 07/11/2024 Generalized anxiety disorder (ICD-10 - F41.1) patient recommended to see civil celebrant and refused- reported stopped all heart rx [...] PCP 07/13/24 and strongly recommended to see civil celebrant - reported weakness Anxiety Clonazpeam 0.5 mg [...] products and stop smoking hotline given http_s://www.davon. org/Qtkjs-Nbwtls-D llness/Treatments/ Vjcfou-Jztbyf-Ophi cations http_s://www.davon. org/Zhyhh-Qudwhx-B llness/Mental-Heal th-Conditions http_s://[employer].com/depression /itn-yjzhxayfo-ncw onqfc-fw-pghgiaeuv n#treatments http__s://www.[facility] .nih.gov/health/to pics/mental-health -medications http__s://www.davon .org/About-Mental- Illness/Treatments /Vbvfdq-Zxhaum-Rtj ications educated on all medications, benefits, side [...] (ICD-10 - F41.1) patient recommended to see civil celebrant and refused- reported stopped all heart rx [...] products and stop smoking hotline given http_s://www.davon. org/Mnhgm-Sevyjx-W llness/Treatments/ Uowcxp-Nfcfbg-Uulo cations http_s://www.davon. org/Pqawk-Eipxzw-Q llness/Mental-Heal th-Conditions http_s://psychcent [employer].com/depression /mqd-uacxzgmir-zpg wfedq-br-fjfrjkubj n#treatments http__s://www.nimh .nih.gov/health/to pics/mental-health -medications http__s://www.davon .org/About-Mental- Illness/Treatments /Rwjzvg-Kgsrgy-Nir ications educated on all medications, benefits, side [...] (ICD-10 - F51.11) patient recommended to see civil celebrant and refused- reported stopped all heart rx [...] products and stop smoking hotline given http_s://www.davon. org/Nncyg-Danmwm-W llness/Treatments/ Nezjvy-Jqjrxe-Dtpp cations http_s://www.davon. org/Eiksw-Uzkxcx-X llness/Mental-Heal th-Conditions http_s://CHOOMOGO.com/depression /fqb-lkhlicrbj-qxb gieur-xg-priqqtppi n#treatments http__s://www.nimh .nih.gov/health/to pics/mental-health -medications http__s://www.davon .org/About-Mental- Illness/Treatments /Wudzlq-Ullfwi-Zhn ications educated on all medications, benefits, side [...] (ICD-10 - F51.11) patient recommended to see civil celebrant and refused- reported stopped all heart rx [...] PCP 07/13/24 and strongly recommended to see civil celebrant - reported weakness Anxiety Clonazpeam 0.5 mg [...] products and stop smoking hotline given http_s://www.davon. org/Sdeif-Woxzjd-M llness/Treatments/ Uaixww-Vsvyhn-Sies cations http_s://www.davon. org/Dgbdo-Rfiahb-F llness/Mental-Heal th-Conditions http_s://CHOOMOGO.com/depression /dun-hjkyoadta-cvp eowcg-js-ulvbrrdhm n#treatments http__s://www.nimh .nih.gov/health/to pics/mental-health -medications http__s://www.davon .org/About-Mental- Illness/Treatments /Eharuv-Jvindi-Miz ications educated on all medications, benefits, side [...] (ICD-10 - F17.200) patient recommended to see civil celebrant and refused- reported stopped all heart rx [...] PCP 07/13/24 and strongly recommended to see civil celebrant - reported weakness 2. Anxiety Clonazpeam 0.5 [...] patient has provider and recommend MRI http_s://www.davon. org/Jkasf-Omjjok-B llness/Treatments/ Pyqytp-Kagmos-Hlrh cations http_s://www.davon. org/Kmtvm-Wgkgmr-V llness/Mental-Heal th-Conditions http_s://CHOOMOGO.com/depression /kuv-qevilmcjh-nsd cyzyu-ki-yvquurvqy n#treatments http__s://www.nimh .nih.gov/health/to pics/mental-health -medications http__s://www.davon .org/About-Mental- Illness/Treatments /Kappho-Rinkxm-Vdk ications educated on all medications, benefits, side [...] (ICD-10 - F17.200) patient recommended to see civil celebrant and refused- reported stopped all heart rx [...] PCP 07/13/24 and strongly recommended to see civil celebrant - reported weakness Anxiety Clonazpeam 0.5 mg [...] products and stop smoking hotline given http_s://www.davon. org/Ucimi-Ksmknn-O llness/Treatments/ Dlacea-Ipyymv-Bszw cations http_s://www.davon. org/Dwhcw-Lkqcmh-U llness/Mental-Heal th-Conditions http_s://CHOOMOGO.com/depression /hxp-cpecncbov-soh mbslw-yj-podtsgsxp n#treatments http__s://www.nimh .nih.gov/health/to pics/mental-health -medications http__s://www.davon .org/About-Mental- Illness/Treatments /Hovdug-Tutznm-Ert ications educated on all medications, benefits, side [...] (ICD-10 - F43.12) patient recommended to see civil celebrant and refused- reported stopped all heart rx [...] PCP 07/13/24 and strongly recommended to see civil celebrant - reported weakness 2. Anxiety Clonazpeam 0.5 [...] patient has provider and recommend MRI http_s://www.davon. org/Hnamm-Vyvxbu-A llness/Treatments/ Sakdsb-Zxsexb-Ofrf cations http_s://www.davon. org/Dnsuo-Flncmj-G llness/Mental-Heal th-Conditions http_s://psychcent [employer].com/depression /pwu-dybzhgczg-slt eyygu-rv-twbiyihlg n#treatments http__s://www.nim .nih.gov/health/to pics/mental-health -medications http__s://www.davon .org/About-Mental- Illness/Treatments /Lleapu-Uuaewq-Bxh ications educated on all medications, benefits, side [...] (ICD-10 - F17.200) patient recommended to see civil celebrant and refused- reported stopped all heart rx [...] products and stop smoking hotline given http_s://www.davon. org/Vxity-Qfcqiy-F llness/Treatments/ Gqhuym-Eckfgg-Ptay cations http_s://www.davon. org/Qqpve-Umcery-N llness/Mental-Heal th-Conditions http_s://psychcent [employer].com/depression /tsj-ypsvugjiy-ezc ozftj-hl-nnicnuplw n#treatments http__s://www.nimh .nih.gov/health/to pics/mental-health -medications http__s://www.davon .org/About-Mental- Illness/Treatments /Hyaxqt-Qvbpyd-Aas ications educated on all medications, benefits, side [...] (ICD-10 - F43.12) patient recommended to see civil celebrant and refused- reported stopped all heart rx [...] products and stop smoking hotline given http_s://www.davon. org/Sizjk-Ovhuir-D llness/Treatments/ Hsiojh-Blbmpu-Sndj cations http_s://www.davon. org/Jvrbh-Mazpik-U llness/Mental-Heal th-Conditions http_s://[employer].com/depression /qip-xxsmizugj-hpf uvxbg-qk-bomgwpyyx n#treatments http__s://www.nimh .nih.gov/health/to pics/mental-health -medications http__s://www.davon .org/About-Mental- Illness/Treatments /Yxdzpm-Pcvvsj-Cwm ications educated on all medications, benefits, side [...] (ICD-10 - F43.12) patient recommended to see civil celebrant and refused- reported stopped all heart rx [...] PCP 07/13/24 and strongly recommended to see civil celebrant - reported weakness Anxiety Clonazpeam 0.5 mg [...] products and stop smoking hotline given http_s://www.davon. org/Vmtiq-Ktxhrx-E llness/Treatments/ Suorfq-Crlnqu-Rjuf cations http_s://www.davon. org/Tdloy-Yfutzh-H llness/Mental-Heal th-Conditions http_s://CHOOMOGO.com/depression /kpm-pzurlxbju-vpw yxucw-dw-ohesxlldu n#treatments http__s://www.nimh .nih.gov/health/to pics/mental-health -medications http__s://www.davon .org/About-Mental- Illness/Treatments /Xxnnrc-Zeuoqx-Xie ications educated on all medications, benefits, side [...] and interactions with prescribed medications. 10/26/2024 Other residential (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 (ICD-10 - Z79.899) patient recommended to see civil celebrant and refused- reported stopped all heart rx [...] PCP 07/13/24 and strongly recommended to see civil celebrant - reported weakness 2. Anxiety Clonazpeam 0.5 [...] patient has provider and recommend MRI http_s://www.davon. org/Pkisk-Pgyjhg-P llness/Treatments/ Oxvnlk-Lvkasf-Ouzn cations http_s://www.davon. org/Kwpvr-Bxidhd-C llness/Mental-Heal th-Conditions http_s://psychcent [employer].com/depression /jtv-reddmgbtj-tof uxnkl-rn-gmiygrlbk n#treatments http__s://www.nimh .nih.gov/health/to pics/mental-health -medications http__s://www.davon .org/About-Mental- Illness/Treatments /Mqjjdo-Qyzxhe-Nqh ications educated on all medications, benefits, side [...] (ICD-10 - Z72.0) patient recommended to see civil celebrant and refused- reported stopped all heart rx [...] PCP 07/13/24 and strongly recommended to see civil celebrant - reported weakness 2. Anxiety Clonazpeam 0.5 [...] patient has provider and recommend MRI http_s://www.davon. org/Qzjmr-Qsnuuy-J llness/Treatments/ Iyvruj-Gebrrt-Yhwa cations http_s://www.davon. org/Maofd-Aacbae-S llness/Mental-Heal th-Conditions http_s://CHOOMOGO.Loopcam/depression /fps-rkxrqozoo-lvu wkenx-rq-swiedvyex n#treatments http__s://www.nimh .nih.gov/health/to pics/mental-health -medications http__s://www.davon .org/About-Mental- Illness/Treatments /Ghjstc-Urqqor-Wkr ications educated on all medications, benefits, side [...] and interactions with prescribed medications. 04/18/2024 Other residential (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 (ICD-10 - Z79.899) patient recommended to see civil celebrant and refused- reported stopped all heart rx [...] products and stop smoking hotline given http_s://www.davon. org/Jikyt-Ndaseo-S llness/Treatments/ Uojogd-Ukxylp-Cwwf cations http_s://www.davon. org/Yakwq-Dafbhk-E llness/Mental-Heal th-Conditions http_s://psychcent [employer].com/depression /mdt-kzwslfomp-pcu yibtu-vo-tefczajxa n#treatments http__s://www.[facility] .nih.gov/health/to pics/mental-health -medications http__s://www.davon .org/About-Mental- Illness/Treatments /Hiblna-Yalhxe-Nhb ications educated on all medications, benefits, side [...] and interactions with prescribed medications. 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 org/Ltnge-Iaoebt-H llness/Treatments/ Iciszf-Mxmxow-Hkpr cations http_s://www.davon. org/Nxixp-Cbzupz-F llness/Mental-Heal th-Conditions http_s://psychcent [employer].com/depression /vgr-evcieatfg-sax qrnrr-pg-nfsnfhxde n#treatments http__s://www.[facility] .nih.gov/health/to pics/mental-health -medications http__s://www.davon .org/About-Mental- Illness/Treatments /Qrunof-Frcmrv-Zzn ications educated on all medications, benefits, side [...] (ICD-10 - Z72.0) patient recommended to see civil celebrant and refused- reported stopped all heart rx [...] PCP 07/13/24 and strongly recommended to see civil celebrant - reported weakness Anxiety Clonazpeam 0.5 mg [...] products and stop smoking hotline given http_s://www.davon. org/Hkufp-Xeeaoj-L llness/Treatments/ Reqfjt-Izpnok-Lzaf cations http_s://www.davon. org/Otnqd-Zthsyc-K llness/Mental-Heal th-Conditions http_s://psychcent [employer].com/depression /lzc-oazwhkamo-cox ixxsg-ek-shsyzuani n#treatments http__s://www.nimh .nih.gov/health/to pics/mental-health -medications http__s://www.davon .org/About-Mental- Illness/Treatments /Nfpikn-Mykpkk-Ypu ications educated on all medications, benefits, side [...] (ICD-10 - Z13.6) patient recommended to see civil celebrant and refused- reported stopped all heart rx [...] PCP 07/13/24 and strongly recommended to see civil celebrant - reported weakness 2. Anxiety Clonazpeam 0.5 [...] patient has provider and recommend MRI http_s://www.davon. org/Ldxni-Mpotgf-T llness/Treatments/ Ehomdi-Ljnogr-Wpmd cations http_s://www.davon. org/Rnomb-Kksriw-F llness/Mental-Heal th-Conditions http_s://psychcent [employer].com/depression /jpb-tvvmgyklm-iny rgyrx-vg-glwecsuho n#treatments http__s://www.nimh .nih.gov/health/to pics/mental-health -medications http__s://www.davon .org/About-Mental- Illness/Treatments /Nxvngh-Qjlxuv-Bso ications educated on all medications, benefits, side [...] (ICD-10 - R41.3) patient recommended to see civil celebrant and refused- reported stopped all heart rx [...] PCP 07/13/24 and strongly recommended to see civil celebrant - reported weakness 2. Anxiety Clonazpeam 0.5 [...] patient has provider and recommend MRI http_s://www.davon. org/Sikhy-Tdzzrp-Z llness/Treatments/ Xbtjvz-Rkyxcv-Wxla cations http_s://www.davon. org/Hzuiv-Aajisr-X llness/Mental-Heal th-Conditions http_s://psychcent [employer].com/depression /ckn-ggepodilb-vti ffvmw-tx-qzpaagulq n#treatments http__s://www.nimh .nih.gov/health/to pics/mental-health -medications http__s://www.davon .org/About-Mental- Illness/Treatments /Pqvjie-Nfkkqr-Rjp ications educated on all medications, benefits, side [...] (ICD-10 - Z13.6) patient recommended to see civil celebrant and refused- reported stopped all heart rx [...] PCP 07/13/24 and strongly recommended to see civil celebrant - reported weakness Anxiety Clonazpeam 0.5 mg [...] products and stop smoking hotline given http_s://www.davon. org/Jrmws-Pwtvju-N llness/Treatments/ Ajndbq-Jfomgz-Wwmg cations http_s://www.davon. org/Qggjh-Vvkxom-I llness/Mental-Heal th-Conditions http_s://[employer]OMO[employer].com/depression /uol-coumbpyxf-pzo [id number] n#treatments http__s://www.nimh .nih.gov/health/to pics/mental-health -medications http__s://www.davon .org/About-Mental- Illness/Treatments /Khrfez-Vgsjmo-Wex ications educated on all medications, benefits, side [...] Insured Coverage Start Date Coverage End Date [facility] [address] [address] [place] [address] [id number] T+O ARTEMIO ONOFRE Self - patient is the insured For Life - Medicare Supplement [address] [place] [address] [id number] ARTEMIO ONOFRE Self - patient is the [...]
--- OUTSIDE RECORDS SUMMARY | 2025-02-08 20:30 | XMS_ITS | Clinical Summary ---
Author Organization [facility] Address [address] [place] [address] Care Team Providers Care Gem Setter Name Role Phone Andrés Bradshaw DO Primary [...] (1 - 1-dose 75+ series) 2032 Insurance FORMERLY [facility] Care Teams Gem Setter Relationship Specialty Start Date End Date Andrés Bradshaw DO [address] [facility] [address] [place] [address] PCP - General Internal Medicine 06/02/18
--- OUTSIDE RECORDS SUMMARY | 2025-02-08 20:30 | XMS_ITS | Continuity of Care Document ---
Author Organization [place] - [facility] [employer], [facility] Address [address] [place] [address] Assessment Encounter Date Assessment Date Assessment LastModified by Organization Details LastModified Time 02/07/2025 02/07/2025 This note is dictated and transcribed by [employer]. Cooking Appliance Repair Technician variances may occur. Despite proofreading, typographical errors may occur. Occasional wrong-word or 'liblr-n-vhnb' substitutions may have occurred due to the [...] XR, ankle No observ ation record ed. [email or web address] [facility] [address], [place], [address], 01/17/2025 08:54:38 02/07/2001/24/2025 XR, ankle , 3 or more view No observ ation record ed. [email or web address] [address], [address], 02/06/2025 15:32:55 Result Notes None recorded. Problems Name Problem SNOMED Code Status Onset Date Resolution Date Notes Provider Name and Address Organization Details Recorded Time Hypertensi ve disorder 72901657 Active Not Available [facility] 4 19:52:18 Hypothyroi dism 59059183 Active Caty aBez APRN [address], [place], [address] , [employer] 4 14:57:24 Polyneurop athy 60785178 Active Caty Baez APRN [address], [place], [address] , [facility] 4 14:57:39 Atrial fibrillati on 87839725 Active Caty Baez APRN [address], [place], [address] , [employer] 4 14:56:38 Coronary arterioscl erosis 38655221 Active Caty Baez APRN [address], [place], [address] , [employer] 4 14:56:57 Chronic kidney disease 313934779 Active Caty Baez APRN [address], [address] [facility], [place], [address] , [employer] 4 14:56:43 Diabetes mellitus 26612675 Active Caty Baez APRN [address], [place], [address] , [employer] 4 14:56:59 Dyspnea on exertion 26163547 Active 2022 Not Available [facility] 4 19:52:18 Chronic cough 79926791 Active 2022 Caty Baez APRN [address], [place], [address] , [employer] 4 14:56:40 Essential hypertensi on 14162142 Active 2022 Caty Baez APRN [address], [place], [address] , [employer] [facility] [employer] [facility] 4 14:57:06 Cigarette smoker 29328805 Active 2022 Not Available [facility] 4 19:52:18 Bilateral earache 866087094 Active 2022 Not Available [facility] 4 19:52:18 Pain in throat 671787774 Active 2022 Not Available [facility] 4 19:52:18 Coronary atheroscle rosis 735716643 Active 2022 Caty Baez APRN [address], [place], [address] , [employer] [facility] 4 14:57:03 Congestive heart failure 27516516 Active 2022 Caty Baez APRN [address], [place], [address] , [facility] [employer] [facility] 4 14:56:54 Chronic obstructiv e pulmonary disease 48720917 Active 2022 Caty Baez APRN [address], [place], [address] , [employer] [facility] [employer] [facility] 4 14:56:51 Gastroesop hageal reflux disease 003857013 Active 2022 Caty Baez APRN [address], [place], [address] , [employer] [facility] 4 14:57:09 Hyperlipid emia 56536286 Active 2022 Caty Baez APRN [address], [place], [address] , [employer] [facility] 4 14:57:12 Obstructiv e sleep apnea syndrome 24392750 Active 2023 Caty Baez APRN [address], [place], [address] , [facility] [employer] [facility] [employer] [facility] 4 14:57:42 Abscess of oral tissue 43153732 Active 2023 Olinda Trujillo MD [address], [place], [address] , [employer] 4 18:18:00 Serum creatinine above reference range 542221421 Active 2023 MARKEL Hodges [address], [place], [address] , [employer] 4 16:19:09 Nicotine dependence 69169435 Active 2023 MARKEL Hodges [address], [place], [address] , [employer] 4 15:33:35 Pain of bilateral knee joints 1013199559080 04 Active 2023 Caty Baez APRN [address], [place], [address] , [employer] 4 11:17:59 Amnesia 69528783 Active 2023 Caty Baez APRN [address], [place], [address] , [employer] 4 15:18:33 Post-traum atic stress disorder 32629356 Active 2023 Caty Baez APRN [address], [place], [address] , [employer] 4 15:19:03 Muscle weakness 26007160 Active 2024 MARKEL Hodges [address], [place], [address] , [employer] 5 15:46:45 Memory impairment 925110896 Active 2024 MARKEL Hodges [address], [place], [address] , [employer] 5 12:09:35 Injury of right foot 506400153 Active 2024 MARKEL Hodges [address] [facility], [place], [address] , [facility] [employer] [facility] 5 12:07:17 Skin ulcer due to type 2 diabetes mellitus 6453037995213 01 Active 2024 Antonio Lopez DPM [address] [facility] [address], [place], [address] , [facility] [employer] [facility] 5 09:02:37 Chronic osteomyeli tis of left foot 4306875962348 105 Active 2024 Antonio Lopez DPM [address] [facility], [facility] [address], [place], [address] , [facility] [employer] [facility] 09:03:02 Problem Notes None recorded. Procedures Surgical History Date Name Laterality Status Provider Name and Address Organization Details Recorded Time Wound Care-Podiatry completed Prudence Martell RN [facility] [employer] [facility] 02/07/2025 16:39:10 Cardiac Stent Placement completed Ida Solano MA [facility] [employer] [facility] 07/13/2024 15:40:23 Imaging Results None recorded. Procedure Notes None recorded. Medical Equipment None Reported. Allergies Allergen ID Allergen Name Allergen Category Reaction Reaction Severity Criticality Documentation Date Start Date Code Code System Note Provider Name and Address Organization Details Recorded Time 59035 Substance with sulfonami de structure and antibacte rial mechanism of action (substanc e) medicatio n Not available Not available Not available 05/20/2022 45083 8003 SNOMED Not Available [facility] 10:50:09 03307 niacin medicatio n Not available Not available Not available 05/20/2022 7393 RxNorm Not Available [facility] 10:50:09 16975 lactose food,medi cation Not available Not available Not available 05/20/2022 6211 RxNorm Not Available [facility] 10:50:10 Medications Name Sig Start Date Stop Date Status Note LastModified by Organization Details LastModified Time furosemide 40 mg tablet TAKE 1 TABLET BY MOUTH DAILY 04/24 /2025 completed Not Available Not Available Not Available [...] completed Not Available Not Available Not Available [employer] Ultra Test strips USE TO TEST BLOOD [...] Available Vitals Date Recorded Body height Body temperature Heart rate Oxygen saturation Systolic And Diastolic Provider Name and Address Organization Details Last Updated DateTime 5 177.8 cm 98.6 [degF] 90 /min 94 % 105/65 mm[Hg] Prudence Martell RN [facility] 15:57:49 Social History Question Answer Notes LastModified by Organizat ion Details LastModified Time Tobacco Smoking Status Current Every Day Smoker Elza baker [facility] 11/16/2022 14:54:02 Do You Have An Advance Directive? No Information not available 02/15/2024 What Is Your Level Of Caffeine Consumption? Occasional [id number] Information not available 05/20/2022 How Much Tobacco Do You Chew? None Information not available 02/15/2024 In The 14 Days Before Symptom Onset, Have You Had Close Contact With A Laboratory-confir med COVID-19 While That Case Was Ill? No [email or web address] Information not available 11/16/2022 In The 14 Days Before Symptom Onset, Have You Had Close Contact With A Person Who Is Under Investigation For COVID-19 While That Person Was Ill? No [email or web address] Information not available 11/16/2022 What Type Of Diet Are You Following? REGULAR [id number] Information not available 05/20/2022 What Was The Date Of Your Most Recent Tobacco Screening? 07/13/2024 [email or web address] Information not available 07/13/2024 What Is Your Relationship Status? Information not available 02/15/2024 Do You Use Your Seat Belt Or Car Seat Routinely? Yes [email or web address] Information not available 11/16/2022 At What Age Did You Start Smoking Tobacco? 20 [email or web address] Information not available 11/16/2022 How Much Tobacco Do You Smoke? 2 PPD [id number] Information not available 05/20/2022 Do You Participate In Social Media? No [email or web address] Information not available 11/16/2022 Has Tobacco Cessation Counseling Been Provided? No Information not available 11/16/2022 How Many Years Have You Smoked Tobacco? 47 [email or web address] Information not available 11/16/2022 Have You Recently Traveled Abroad? No [email or web address] Information not available 11/16/2022 Do You Have Any Dietary Restrictions? No [email or web address] Information not available 11/16/2022 How Many Years Have You Used Smokeless Tobacco? 0 Information not available 02/15/2024 Sex: Unknown Functional Status Question Answer Note LastModified by Organizat ion Details LastModified Time Do you use any illicit or recreational drugs? No Information not available 11/16/2022 Do you or have you ever used any other forms of tobacco or nicotine? No [email or web address] Information not available 11/16/2022 What is your level of alcohol consumption? None [id number] Information not available 05/20/2022 Do you or have you ever used smokeless tobacco? Never used smokeless tobacco Information not available 02/15/2024 What is your exercise level? Moderate Information not available 02/15/2024 Mental Status Question Answer Note LastModified by Organization D etails LastModified Time Do you feel stressed (tense, restless, nervous, or anxious, or unable to sleep at night)? [id number] [email or web address] Information not available 11/16/2022 Family History Relationship Description Onset Age of this Age Resolved Age Notes LastModified by Organization Details LastModified Time Mother Depressive disorder [id number] Not available 05/20/2022 10:42:40 Mother Hypertensive disorder [id number] Not available 05/20/2022 10:42:40 Mother Diabetes mellitus [id number] Not available 05/20/2022 10:42:40 Mother Arthritis Not availabl e 02/07/2025 15:23:48 Mother Hypercholest erolemia Not available 2023 11:13:17 Mother Disorder of thyroid gland Not available 2023 11:13:17 Mother Anxiety disorder Not available 2023 11:13:17 Mother Mental disorder Not available 2023 11:13:17 Father Alcoholism Not availab le 02/07/2025 15:23:48 Unspecified Relation Alcoholism [email or web address] g Not available 02/07/2025 15:23:48 Unspecified Relation Alcoholism [email or web address] g Not available 02/07/2025 15:23:48 Sister Hypertensive disorder Not available 2023 11:13:17 Medical History No medical history recorded. Immunizations Vaccine Type Date Status Note Provider Nam e and Address Organization Details Recorded Time COVID-19, mRNA, LNP-S, PF, 30 mcg/0.3 mL dose 1 completed Caty Baez APRN [address], [place], [address], [facility] 02/15/2024 11:12:14 COVID-19, mRNA, LNP-S, PF, 30 mcg/0.3 mL dose 1 completed Caty Baez APRN [address], [place], [address], [facility] 02/15/2024 11:12:14 Pneumococcal conjugate PCV20, polysaccharide CFX102 conjugate, adjuvant, PF 2 completed Caty Baez APRN [address], [place], [address], [facility] 02/15/2024 11:12:14 COVID-19, mRNA, LNP-S, PF, 30 mcg/0.3 mL dose, ebne-sucrose 2 completed Caty Baez APRN [address] [facility], [facility] [address], [place], [address], [employer] [facility] [employer] [facility] 02/15/2024 11:12:14 RSV, recombinant, protein subunit RSVpreF, adjuvant reconstituted, 0.5 mL, PF 4 completed Caty Baez APRN [address] [facility], [facility] [address], [place], [address], [employer] [facility] 02/15/2024 11:12:14 Influenza, split virus, quadrivalent, PF 1 completed Caty Baez APRN [address] [facility], [address] [address], [place], [address], [employer] 02/15/2024 11:12:14 Influenza, high-dose, quadrivalent, PF 4 completed Olinda Trujillo MD [address] [facility], [address] [address], [place], [address], [facility] 04/20/2023 18:37:51 Past Encounters Encounter ID Performer Location Encounter Start Date Encounter Closed Date Diagnosis/Indication Diagnosis SNOMED-CT Code Diagnosis ICD10 Code Diagnosis IMO Codes Diagnosis Note [id number] MARKEL Hodges [facility] [address] [place] [address] 01/25/2025 11:28:45 01/25/2025 12:36:56 Injury of right foot 762324406 S91.301A [id number] Continue to follow podiatry. 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 2 diabetes mellitus [id number] 28503 E11.622 [id number] currently on clindamyci n- continueBe tadine wet-to-dry dailyofflo ading at all timesrecom mend patient immediatel y be transferre d to the emergency room for further evaluation admission- - discuss this in length with caregiver and patient- both understand directions and will go to the emergency room Chronic os teomyelitis of left foot [id number] 000704 M86.672 [id number] 5th metatarsal head- leftas above Health Concerns Section Related Observation LastModified by Organization Detai ls LastModified Time None Recorded Concern Status LastModified by Organization Details LastModified Time None Recorded Payers Encounter Date Sequence Insurance Name Policy Number Policy Reed Covered Member ID Reed Member ID Guarantor Name 02/07/2025 1 [employer] [place]MEDIC[place]AC[id number] Dionicio Ruiz [id number] Cas Hagjesse 02/07/2025 2 FOR LIFE ( - MEDICARE SUPPLEMENT) Cas Ruiz [id number] Cas Ruiz Notes Date Note Type Note Provider Name and Address Organization Details Recorded Time 02/07/2025 text/html . Patient is a 69-year-old [...] any other complaints. Antonio Lopez DPM [address], [place], [address], [facility] [employer] 02/08/2025 09:04:23
[2025-02-08] MEDS: CEFEPIME 2 GM in SODIUM CHLORIDE 0.9% IV 50 ML 100 ML IVPB (21:10)
[2025-02-08] MEDS: SODIUM CHLORIDE 0.9% IV 1,000 ML 999 ML IV CONT (21:33)
[2025-02-08] MEDS: NICOTINE (*PBKC) 14 MG PATCH 1 PATCH TRANSDERM (21:35)
[2025-02-08] MEDS: VANCOMYCIN 1,250 MG/NS 250 ML 1,250 MG/250 ML BAG 166.67 MG IVPB ×2 (21:41→21:46)
[2025-02-08 21:48] VITALS: BP 112/73; PULSE 85; RESP 18; O2SAT 94
[2025-02-08 23:15] VITALS: BP 123/58; PULSE 82; RESP 22; TEMP 36.4; O2SAT 94
[2025-02-08 23:20] VITALS: BMI 39.6
[2025-02-08 23:40] VITALS: BP 123/58; PULSE 82; RESP 22; TEMP 36.4; O2SAT 94
[2025-02-09] VITALS (12 sets, daily range): BP systolic 103–149; BP diastolic 61–87; PULSE 80–109; RESP 13–20; TEMP 36.1–36.4; O2SAT 92–100
--- NOTE | 2025-02-09 02:21 | WNDPHOTO ---
PHOTO ONLY - See Nursing Notes and/ or assessments for documentation.
--- NOTE | 2025-02-09 02:26 | WNDPHOTO ---
PHOTO ONLY - See Nursing Notes and/ or assessments for documentation.
--- NOTE | 2025-02-09 02:42 | WNDPHOTO ---
PHOTO ONLY - See Nursing Notes and/ or assessments for documentation.
--- NOTE | 2025-02-09 02:43 | WNDPHOTO ---
PHOTO ONLY - See Nursing Notes and/ or assessments for documentation.
--- NOTE | 2025-02-09 04:11 | PM.IMHP ---
H&P: HPI History of Present Illness Date/Time: 02/09/25 04:11 Chief Complaint: Diabetic foot ulcer Narrative: This is a 69-year-old male patient with a history of diabetes. The patient stated that he has had a foot ulcer for over a month now. Possibly 2 months. The patient has an ulcerated area on the right lateral distal foot plantar surface involving the pinky toe. His interior plant caretaker who is from [facility] was with him in the emergency room. The patient saw Dr. Manzanares footwear production machine operator podiatry in November. His been seeing him intermittently since then. He saw the wound care doctor at [facility], [place] yesterday and said that some the bone was exposed any needs to be hospitalized. The patient does have neuropathy and states that his feet feel like pins and needles. He is wearing a boot to the left lower extremity. He stated that his last hemoglobin A1c was 8.6. He does not check his blood sugars on a regular basis. The patient has pain with weight-bearing to the right leg. His H&H is 0.6 and 38.2. Platelet count 370. Sodium 135. Blood sugars were 117 in 108. CRP is 6.6. X-ray of the right foot was read asIMPRESSION: 1. Significant erosive changes with pathological fracture of distal fifth metatarsal bone suggestive of osteomyelitis with pathologic fracture. The patient was started on vancomycin and cefepime. The patient was was made NPO and surgery has been consulted. The patient is being admitted for observation status on the date of service of 02/09/2025. Review of Systems Review of Systems: The patient is a poor historian. Constitutional: Constitutional: Reports as per HPI and Reports no additional constitutional complaints Eyes: Eyes: Reports as per HPI and Reports no additional eye complaints ENT: Reports system reviewed and no additional complaints, except as documented and Reports Normal hearing present Cardiovascular: Cardiovascular: Reports no additional cardiovascular complaints Respiratory: Respiratory: Reports as per HPI and Reports no additional respiratory complaints Gastrointestinal: Gastrointestinal: Reports as per HPI and Reports no additional gastrointestinal complaints Musculoskeletal: Musculoskeletal: Reports no additional musculoskeletal complaints Integumentary/Breasts: Skin/Breast: Reports system reviewed and no additional complaints, except as docu Neurologic: Reports system reviewed and no additional complaints, except as documented and Reports Normal hearing present Psychiatric: Psychiatric: Reports no additional psychiatric complaints and Reports as per HPI Hematologic/Lymphatic: Hematologic/Lymphatic: Reports no additional hematologic/lymphatic complaints Allergic/Immunologic: Allergic/Immunologic: Reports no additional allergic/immunologic complaints [facility] Past Medical History Medical History (Updated 02/09/25 @ 15:17 by Jose Mayfield DO) CASI (obstructive sleep apnea) Anxiety Depression Schizophrenia Morbid obesity with BMI of 40.0-44.9, adult Type 2 DM with CKD stage 3 and hypertension Poor dentition Acquired hypothyroidism Atrial fibrillation Coronary artery disease Surgical History Surgical History H/O heart artery stent Surgical history unknown Family History Family History Mother Depression Hypertension Family history of arthritis Diabetes mellitus Father Family history of alcoholism Sibling Family history of alcoholism Grandparent Family history of cardiovascular disease Social History Social History (Updated 02/10/25 @ 00:21 by Selina De La Torre APRN) Social History: The patient is x2. He is a current everyday smoker. The patient lives by himself. He does have [employer] come and help him out. He has 1 child. His been on disability. Code status: Full code Smoking packs per day: 2 Smoking cigarettes per day: 40.0 Years smoked: 47 Smoking pack-years: 94.00 Smoking status: Current every day smoker Tobacco type: cigarettes Second hand tobacco smoke exposure: Yes Alcohol intake: never Substance use: former Substance use type: does not use Lack of Transportation: No Lack of Food: Never True Current Housing: I Have Housing Concerned About Future Housing: No Difficulty Paying Gas/Electric Bills: No Difficulty Paying for Meds: No Currently Unemployed: No Education: High School Diploma/GED Difficulty w/ Childcare or Family Care: No Spiritual care concerns: No Meds Home Medications and Allergies Home Medications ?Medication ?Instructions ?Recorded ?Confirmed ?Type aspirin 81 mg tablet,delayed 81 mg PO DAILY 03/27/19 02/08/25 History release (Adult Aspirin Regimen) clonazepam 0.5 mg tablet 0.5 mg PO BID PRN Anxiety 03/27/19 02/08/25 History loratadine 10 mg tablet (Allergy 10 mg PO DAILY 03/27/19 02/08/25 History Relief (loratadine)) cholecalciferol (vitamin D3) 250 50 mcg PO DAILY 07/18/19 02/08/25 History mcg (10,000 unit) capsule mecobalamin (vitamin B12) 5,000 500 mcg PO DAILY 07/18/19 02/08/25 History mcg disintegrating tablet melatonin 3 mg capsule 5 mg PO HS 10/10/19 02/08/25 History bupropion HCl 150 mg tablet,12 hr 150 mg PO DAILY 01/15/20 02/08/25 History sustained-release paliperidone 6 mg tablet,extended 6 mg PO HS 01/15/20 02/08/25 History release 24 hr pantoprazole 40 mg tablet,delayed See Rx Instructions .Route 06/30/21 02/08/25 Rx release .COMPLEX #90 tabs pravastatin 20 mg tablet 20 mg PO DAILY #90 tabs 07/03/21 02/08/25 Rx magnesium oxide 400 mg PO BID #60 tabs 08/15/21 02/08/25 Rx albuterol sulfate 90 mcg/actuation See Rx Instructions .Route 01/20/22 02/08/25 Rx aerosol inhaler .COMPLEX #8.5 grams hydroxyzine HCl 25 mg tablet 25 mg PO BID PRN Anxiety 06/02/22 02/08/25 History paroxetine HCl 40 mg tablet 40 mg PO DAILY 06/02/22 02/08/25 History apixaban 5 mg tablet (Eliquis) See Rx Instructions .Route 07/16/22 02/08/25 Rx .COMPLEX #180 tabs metoprolol tartrate 50 mg tablet See Rx Instructions .Route 06/19/24 02/08/25 Rx .COMPLEX #60 tabs walker #1 ea 01/16/25 02/08/25 Rx gabapentin 300 mg capsule 300 mg PO Q8H neuropathy 02/08/25 02/08/25 History semaglutide 3 mg tablet (Rybelsus) 7 mg PO DAILY@0800 diabetes 02/08/25 02/08/25 History Allergies Allergy/AdvReac Type Severity Reaction Status Date / Time Sulfa (Sulfonamide Allergy Unknown Unknown Verified 01/24/25 09:06 Antibiotics) niacin AdvReac Mild Flushing Verified 01/24/25 09:06 lactose milk products AdvReac Intermediate GI upset Uncoded 01/24/25 09:06 Vital Signs Vital Signs - 24 hr 02/08/25 14:38 02/08/25 19:06 02/08/25 20:20 Temperature 97.6 F 97.9 F Pulse Rate 87 81 81 Respiratory Rate 18 16 18 Blood Pressure 94/58 L 105/65 109/67 Pulse Oximetry 98 97 98 Oxygen Delivery Room Air 02/08/25 21:48 02/08/25 23:15 02/08/25 23:40 Temperature 97.6 F 97.6 F Pulse Rate 85 82 82 Respiratory Rate 18 22 H 22 H Blood Pressure 112/73 123/58 L 123/58 L Pulse Oximetry 94 94 94 Oxygen Delivery 02/09/25 01:55 02/09/25 04:02 Temperature 97.4 F L Pulse Rate 80 93 Respiratory Rate 20 18 Blood Pressure 149/87 H Pulse Oximetry 92 95 Oxygen Delivery CPAP Exam Const: General: cooperative, comfortable, no acute distress, well developed, awake, Physically active and well nourished Nutritional Appearance: average body habitus Orientation/consciousness: oriented to person, oriented to place, oriented to time and patient oriented x3 HENMT: Head: normal to inspection, No palpable skull fracture present, normocephalic, atraumatic and abrasion Ears: hearing grossly normal bilaterally and external ears normal Eyes: General: appearance normal, both eyes and all related structures Alignment and Position: alignment normal Periorbital: periorbital findings normal Eyelids: eyelids normal Neck: Neck: normal visual inspection, full ROM and no lymphadenopathy Chest: Chest palpation & inspection: normal inspection of the chest Resp: Effort & Inspection: normal respiratory effort Auscultation: clear to auscultation bilaterally Cardio: Palpation: normal PMI Rate: regular rate Rhythm: abnormal rhythm Heart sounds: S1 normal heart sound present and S2 normal heart sound present Peripheral pulses: Peripheral pulses 2+ throughout Other: Patient in atrial fibrillation GI: Inspection: normal to inspection Percussion: Yes normal to percussion Auscultation: normal bowel sounds Rectal Exam: deferred Skin: General skin exam: normal color Lesions: no lesions Rashes: no rashes Trauma: no lacerations or abrasions Wounds: no wounds Hair: normal Nails: normal Other: The patient has an area of ulceration on the right foot, lateral distal plantar surface near the pinky toe. The ulcerated area is approximately 3 x 3. There is thick yellow drainage noted from the area. -walking boot is intact to the left foot and I did not assess the left foot. Neuro: General: oriented to person, oriented to place, oriented to time and patient oriented x3 Cranial nerves: Yes Equal, round and reactive pupils present and Yes Normal hearing present Cognition (Neuro): normal cognition Speech: normal speech Sensory Exam: normal sensation Extrem: General: normal to inspection Right upper extremity: normal to inspection and shoulder/upper arm Left upper extremity: normal to inspection and shoulder/upper arm Right lower extremity: normal to inspection Left lower extremity: normal to inspection Psych: Appearance: grossly normal Mental Status: mental status grossly normal Speech and movement: Normal speech and movement present Affect: normal affect Attitude: cooperative Thought process: Normal thought process present Thought content: Yes Normal thought content present H&P: Results Labs Labs: Short CBC 02/08/25 Range/Units 17:06 WBC 9.9 (4.5-10.0) K/mm3 Hgb 12.6 L (14.0-18.0) g/dL Hct 38.3 L (42.0-52.0) % Plt Count 376 H (150-375) k/mm3 BMP 02/08/25 17:06 Sodium 135 L Potassium 4.3 Chloride 101 Carbon Dioxide 27 BUN 13 Creatinine 1.23 Glucose 117 H Calcium 9.3 Liver Function 02/08/25 Range/Units 17:06 Total Bilirubin 0.5 (0.2-1.3) mg/dL AST 23 (17-59) U/L ALT 15 (6-50) U/L Alkaline Phosphatase 68 (38-126) U/L Albumin 4.0 (3.5-5.1) g/dL Imaging Foot x-ray: Radiologist's impression: Impressions Foot X-Ray 02/08/25 17:23 IMPRESSION: 1. Significant erosive changes with pathological fracture of distal fifth metatarsal bone suggestive of osteomyelitis with pathologic fracture. Assessment and Plan Assessment and plan (1) Osteomyelitis: Code(s): M86.9 - Osteomyelitis, unspecified Status: Acute Assessment and Plan: -surgery has been consulted. -the patient was made NPO. -the patient is on Eliquis and aspirin which is currently on hold. In the event that the patient does not have a procedure please restart these medications -Foot X-Ray 02/08/25 17:23 IMPRESSION: 1. Significant erosive changes with pathological fracture of distal fifth metatarsal bone suggestive of osteomyelitis with pathologic fracture. -the patient was started on cefepime and vancomycin. -blood cultures are pending and wound cultures are pending. -the patient does not appear to be septic and his vital signs are stable. -daily CBC have been ordered. Patient has a normal white count And he is afebrile. (2) Type 2 DM with CKD stage 3 and hypertension: Code(s): E11.22 - Type 2 diabetes mellitus with diabetic chronic kidney disease; I12.9 - Hypertensive chronic kidney disease with stage 1 through stage 4 chronic kidney disease, or unspecified chronic kidney disease; N18.30 - Chronic kidney disease, stage 3 unspecified Status: Chronic Assessment and Plan: -the patient is currently NPO so Accu-Cheks will be every 6 hours with sliding scale insulin. -check A1c if not performed in the last 3 months. -patient self reports that the A1c was 6.6. -the patient does not monitor his blood sugars at home. -rybelsus is nonformulary. (3) Peripheral neuropathy: Code(s): G62.9 - Polyneuropathy, unspecified Status: Acute Assessment and Plan: -continue with gabapentin when able (4) COPD (chronic obstructive pulmonary disease): Code(s): J44.9 - Chronic obstructive pulmonary disease, unspecified Status: Acute Assessment and Plan: -continue with inhaler (5) CASI on CPAP: Code(s): G47.33 - Obstructive sleep apnea (adult) (pediatric); Z99.89 - Dependence on other enabling machines and devices Status: Chronic Assessment and Plan: -auto titrate CPAP/BiPAP Rodríguez settings. (6) Tobacco abuse: Code(s): Z72.0 - Tobacco use Status: Chronic Assessment and Plan: -smoking cessation has been initiated. (7) Dyslipidemia: Code(s): E78.5 - Hyperlipidemia, unspecified Status: Acute Assessment and Plan: -continue with pravastatin (8) Hypertension: Code(s): I10 - Essential (primary) hypertension Status: Acute Assessment and Plan: -continue with metoprolol if blood pressure allows. (9) Anxiety: Code(s): F41.9 - Anxiety disorder, unspecified Status: Acute Assessment and Plan: -continue with hydroxyzine, clonazepam, and paroxetine (10) Depression: Code(s): F32.A - Depression, unspecified Status: Acute Assessment and Plan: -continue with bupropion (11) Schizophrenia: Code(s): F20.9 - Schizophrenia, unspecified Status: Acute Assessment and Plan: -paliperidone is nonformulary. Quality VTE Prophylaxis VTE prophylaxis: pharmacologic ordered (When able to start the Eliquis again.)
[2025-02-09] MEDS: GABAPENTIN 300 MG CAPSULE PO ×3 (04:36→21:10)
[2025-02-09] MEDS: clonazePAM (*CRX) 0.5 MG TABLET PO (04:37)
[2025-02-09 06:12] LABS: Hematocrit 36.6 % (42.0-52.0); Hemoglobin 12.2 g/dL (14.0-18.0); Mean Corpuscular HGB Conc 33.3 g/dl (32-36); Mean Corpuscular Hemoglobin 30.2 pg (26-34); Mean Corpuscular Volume 90.6 fl (80-100); Platelet Count Result 347 k/mm3 (150-375); Red Blood Count 4.04 M/mm3 (4.6-6.20); White Blood Count 10.4 K/mm3 (4.5-10.0)
[2025-02-09 06:37] LABS: Anion Gap 8 mmol/L (4-12); Blood Urea Nitrogen 11 mg/dL (9-20); Calcium 9.1 mg/dL (8.4-10.2); Carbon Dioxide 24 mmol/L (22-30); Chloride 106 mmol/L (98-107); Estimated CRCL calculation 81 ml/min; Estimated Glomerular Filt Rate > 60; Glucose 119 mg/dL (65-110); Potassium 4.0 mmol/L (3.4-5.0); Sodium 138 mmol/L (137-145)
[2025-02-09 07:01] LABS: Hemoglobin A1C 6.6 % (<5.7)
--- NOTE | 2025-02-09 07:04 | PCWOUND ---
WOCN NOTE Received consult for diabetic ulcer. Patient has consult for general surgery for same issue. Will disregard consult, all orders of care will come from surgery.
[2025-02-09] MEDS: metroNIDAZOLE 500 MG/ISO 100ML 500 MG/100 ML BAG 100 MG IVPB ×3 (08:25→21:14)
[2025-02-09] MEDS: NICOTINE (*PBKC) 14 MG PATCH 1 PATCH TRANSDERM (08:32)
[2025-02-09] MEDS: LORATADINE 10 MG TABLET PO (08:33)
[2025-02-09] MEDS: MAGNESIUM OXIDE 400 MG TABLET PO ×2 (08:33→18:13)
[2025-02-09] MEDS: CYANOCOBALAMIN 500 MCG TABLET PO (08:33)
[2025-02-09] MEDS: buPROPion HCL SR (12 HR) 150 MG TAB PO (08:34)
[2025-02-09] MEDS: CHOLECALCIFEROL (VITAMIN D3) 25 MCG (1,000 UNITS) TABLET 50 MCG PO (08:34)
[2025-02-09] MEDS: PANTOPRAZOLE 40 MG TABLET BY MOUTH (08:35)
[2025-02-09] MEDS: METOPROLOL TARTRATE 50 MG TAB BY MOUTH ×2 (08:37→21:09)
--- NOTE | 2025-02-09 09:18 | P.PNIM_ITS ---
Progress Note: A&P Assessment and Plan (1) Osteomyelitis: Code(s): M86.9 - Osteomyelitis, unspecified Status: Acute Assessment and Plan: -surgery has been consulted. Plan for OR tomorrow Okay to eat now, NPO midnight Hold Justina an aspirin Foot x-ray distal fifth metatarsal bone suggestive of osteomyelitis with pathologic fracture. -the patient was started on cefepime and vancomycin. -blood cultures are pending wound cultures are pending. -daily CBC have been ordered. Boot (2) Type 2 DM with CKD stage 3 and hypertension: Code(s): E11.22 - Type 2 diabetes mellitus with diabetic chronic kidney disease; I12.9 - Hypertensive chronic kidney disease with stage 1 through stage 4 chronic kidney disease, or unspecified chronic kidney disease; N18.30 - Chronic kidney disease, stage 3 unspecified Status: Chronic Assessment and Plan: -the patient is currently NPO so Accu-Cheks will be every 6 hours with sliding scale insulin. -check A1c if not performed in the last 3 months. -patient self reports that the A1c was 6.6. -the patient does not monitor his blood sugars at home. (3) Peripheral neuropathy: Code(s): G62.9 - Polyneuropathy, unspecified Status: Acute Assessment and Plan: -continue with gabapentin when able (4) COPD (chronic obstructive pulmonary disease): Code(s): J44.9 - Chronic obstructive pulmonary disease, unspecified Status: Acute Assessment and Plan: -continue with inhaler (5) CASI on CPAP: Code(s): G47.33 - Obstructive sleep apnea (adult) (pediatric); Z99.89 - Dependence on other enabling machines and devices Status: Chronic Assessment and Plan: -auto titrate CPAP/BiPAP settings. (6) Tobacco abuse: Code(s): Z72.0 - Tobacco use Status: Chronic Assessment and Plan: -smoking cessation has been initiated. (7) Dyslipidemia: Code(s): E78.5 - Hyperlipidemia, unspecified Status: Acute Assessment and Plan: -continue with pravastatin (8) Hypertension: Code(s): I10 - Essential (primary) hypertension Status: Acute Assessment and Plan: -continue with metoprolol (9) Anxiety: Code(s): F41.9 - Anxiety disorder, unspecified Status: Acute Assessment and Plan: -continue with hydroxyzine, clonazepam, and paroxetine (10) Depression: Code(s): F32.A - Depression, unspecified Status: Acute Assessment and Plan: -continue with bupropion (11) Schizophrenia: Code(s): F20.9 - Schizophrenia, unspecified Status: Acute Assessment and Plan: -paliperidone is nonformulary. Patient may have family member bring Time Spent With Patient Time with patient: Greater than 35 minutes Subjective Date/time seen: 02/09/25 09:18 Interval history: 69-year-old male patient with a history of diabetes with nonhealing foot ulcer found to have osteomyelitis of the 5th metatarsal. Surgery is some patient plan for amputation tomorrow, NPO midnight okay to eat now Review of Systems Review of Systems: 12 systems were reviewed and are negativ e except for as per HPI. Exam Narrative: General: well appearing, appears stated age. HEENT: normocephalic, atraumatic. Mucous membranes moist. EOMI, PERRLA, bilateral sclera anicteric, no conjunctival injection. Neck supple without JVD, lymphadenopathy, or bruit. Respiratory: clear bilaterally. No rales/rhonic/wheezes. Cardiovascular: Regular rate and rhythm, normal S1-S2. No murmurs, rubs, or clicks. PMI is nondisplaced, capillary refill less than 3 second. Abdomen: Soft, round, no pulsatile masses, nondistended and nontender. No rebound, no guarding. Bowel sounds present to all four quadrants. No high pitch or tinkling sounds, resonant to percussion. Extremities: No cyanosis, clubbing, or edema present. Pulses are palpable 2/2. Right lower extremity with wound with erythema tender to palpation, an orthopedic boot Neuro: Alert and orientated x 4. PERRLA. Cranial nerves 2-12 intact without focal deficit. Skin: Warm, dry, and intact, without rash, erythema, or lesion. Psych: pleasant, cooperative, normal speech, normal affect, no hallucinations, no dysarthia Objective Data Vital Signs Vital Signs: Vital Signs - 24 hr 02/08/25 14:38 02/08/25 19:06 02/08/25 20:20 Temperature 97.6 F 97.9 F Pulse Rate 87 81 81 Respiratory Rate 18 16 18 Blood Pressure 94/58 L 105/65 109/67 Pulse Oximetry 98 97 98 Oxygen Delivery Room Air 02/08/25 21:48 02/08/25 23:15 02/08/25 23:40 Temperature 97.6 F 97.6 F Pulse Rate 85 82 82 Respiratory Rate 18 22 H 22 H Blood Pressure 112/73 123/58 L 123/58 L Pulse Oximetry 94 94 94 Oxygen Delivery 02/09/25 01:55 02/09/25 04:02 Temperature 97.4 F L Pulse Rate 80 93 Respiratory Rate 20 18 Blood Pressure 149/87 H Pulse Oximetry 92 95 Oxygen Delivery CPAP Intake/Output Intake/Output: Intake & Output 02/06/25 02/07/25 02/08/25 02/09/25 23:59 23:59 23:59 23:59 Intake Total 1050 Balance 1050 Meds/Results Medications: Active Medications Generic Name Dose Route Start Last Admin Trade Name Freq PRN Reason Stop Dose Admin Acetaminophen 650 mg 02/08/25 20:45 Acetaminophen 325 Mg Tablet PO Q4H PRN Mild Pain (1-3) or Fever Albuterol 2 puff 02/09/25 04:10 Albuterol Sulfate (*Sp) Aerosol 1 Puff INHALATION Q6HRT PRN SHORTNESS OF BREATH/WHEEZING Bupropion HCl 150 mg 02/09/25 09:00 02/09/25 08:34 Bupropion Hcl Sr (12 Hr) 150 Mg Tab PO 150 mg DAILY LAURA Administration Clonazepam 0.5 mg 02/09/25 04:06 02/09/25 04:37 Clonazepam (*Crx) 0.5 Mg Tablet PO 0.5 mg BID PRN Administration Anxiety Cyanocobalamin 500 mcg 02/09/25 09:00 02/09/25 08:33 Cyanocobalamin 500 Mcg Tablet PO 03/11/25 08:59 500 mcg DAILY LAURA Administration Dextrose 12.5 gm 02/09/25 05:45 Dextrose 50% 25 Gm/50 Ml Syringe IV PUSH PRN PRN Hypoglycemia Protocol Gabapentin 300 mg 02/09/25 06:00 02/09/25 04:36 Gabapentin 300 Mg Capsule PO 300 mg Q8HR LAURA Administration Glucagon 1 mg 02/09/25 04:10 Glucagon For Inj 1 Mg Vial IM PRN PRN Hypoglycemia Protocol Glucose 15 gm 02/09/25 04:10 Glucose Oral Gel 15 Gm Of Glucse In 37.5 Gm Tube PO PRN PRN Hypoglycemia Protocol Hydroxyzine HCl 25 mg 02/09/25 04:06 Hydroxyzine Hcl 25 Mg Tablet PO BID PRN Anxiety Dextrose 1,000 mls @ 100 mls/hr 02/09/25 05:45 Dextrose 5% 1,000 Ml IVPB PRN PRN Hypoglycemia Protocol Cefepime HCl 2 gm/ Sodium 50 mls @ 100 mls/hr 02/09/25 09:00 Chloride IVPB Q12H LAURA Metronidazole 500 mg in 100 mls @ 100 mls/hr 02/09/25 06:00 02/09/25 08:25 Flagyl 500 Mg/Iso Soln 100 Ml IVPB 100 mls/hr Q8HR LAURA Administration Vancomycin HCl 1,500 mg in 500 mls @ 250 mls/hr 02/09/25 09:00 Vancomycin 1,500 Mg/Ns 500 Ml IVPB Q12H [facility] Insulin Aspart 2 - 5 units 02/09/25 06:00 02/09/25 08:24 Insulin Aspart (*Bkc) 100 Units/Ml SUB-Q Not Given Q6HR [facility] Protocol Loratadine 10 mg 02/09/25 09:00 02/09/25 08:33 Loratadine 10 Mg Tablet PO 10 mg DAILY LAURA Administration Magnesium Oxide 400 mg 02/09/25 09:00 02/09/25 08:33 Magnesium Oxide 400 Mg Tablet PO 400 mg BID [facility] Administration Melatonin 5 mg 02/09/25 21:00 Melatonin 5 Mg Tablet PO HS [facility] Metoprolol Tartrate 50 mg 02/09/25 09:00 02/09/25 08:37 Metoprolol Tartrate 50 Mg Tab BY MOUTH 50 mg Q12HR [facility] Administration Nicotine 1 patch 02/08/25 21:25 02/09/25 08:32 Nicotine (*Pbkc) 14 Mg Patch TRANSDERM 1 patch DAILY [facility] Administration Ondansetron HCl 4 mg 02/08/25 20:45 Ondansetron Inj 4 Mg/2 Ml Vial IV PUSH Q4H PRN Nausea Pantoprazole Sodium 40 mg 02/09/25 09:00 02/09/25 08:35 Pantoprazole 40 Mg Tablet BY MOUTH 40 mg DAILY LAURA Administration Paroxetine HCl 40 mg 02/09/25 09:00 02/09/25 08:35 Paroxetine 20 Mg Tablet PO 40 mg DAILY LAURA Administration Pravastatin Sodium 20 mg 02/09/25 21:00 Pravastatin Sodium 20 Mg Tablet PO QHS [facility] Vitamin D 50 mcg 02/09/25 09:00 02/09/25 08:34 Cholecalciferol (Vitamin D3) 25 Mcg (1,000 Units) Tablet PO 50 mcg DAILY LAURA Administration Radiology Results: ITS Impressions Foot X-Ray 02/08/25 17:23 IMPRESSION: 1. Significant erosive changes with pathological fracture of distal fifth metatarsal bone suggestive of osteomyelitis with pathologic fracture. Labs Labs: Laboratory Results - last 24 hr 02/08/25 02/08/2502/08/25 17:06 20:28 23:21 WBC 9.9 RBC 4.20 L Hgb 12.6 L Hct 38.3 L MCV 91.2 MCH 30.0 MCHC 32.9 RDW 14.3 Plt Count 376 H MPV 9.0 Immature Gran % (Auto) 0.2 Neut % (Auto) 64.0 Lymph % (Auto) 22.9 [place] % (Auto) 10.0 H Eos % (Auto) 2.2 Baso % (Auto) 0.7 Lymph # (Auto) 2.26 [place] # (Auto) 1.0 H Eos # (Auto) 0.2 Baso # (Auto) 0.1 Abs Immat Gran (auto) 0.02 Absolute Neuts (auto) 6.3 Absolute Nucleated RBC 0.000 Nucleated RBC % 0.0 ESR 55 H PT 15.2 H INR 1.2 APTT 40.8 H Sodium 135 L Potassium 4.3 Chloride 101 Carbon Dioxide 27 Anion Gap 7 BUN 13 Creatinine 1.23 Estim Creat Clear Calc 72 Estimated GFR 59 Glucose 117 H POC Capillary Glucose 157 H 108 H Hemoglobin A1c Lactic Acid 1.0 Calcium 9.3 Total Bilirubin 0.5 AST 23 ALT 15 Alkaline Phosphatase 68 C-Reactive Protein 6.6 H Total Protein 7.5 Albumin 4.0 02/09/25 02/09/25 02/09/25 05:49 05:50 06:54 WBC 10.4 H RBC 4.04 L Hgb 12.2 L Hct 36.6 L MCV 90.6 MCH 30.2 MCHC 33.3 RDW 14.2 Plt Count 347 MPV 9.0 Immature Gran % (Auto) Neut % (Auto) Lymph % (Auto) [place] % (Auto) Eos % (Auto) Baso % (Auto) Lymph # (Auto) [place] # (Auto) Eos # (Auto) Baso # (Auto) Abs Immat Gran (auto) Absolute Neuts (auto) Absolute Nucleated RBC Nucleated RBC % ESR PT INR APTT Sodium 138 Potassium 4.0 Chloride 106 Carbon Dioxide 24 Anion Gap 8 BUN 11 Creatinine 1.07 Estim Creat Clear Calc 81 Estimated GFR > 60 Glucose 119 H POC Capillary Glucose 141 H Hemoglobin A1c 6.6 H Lactic Acid Calcium 9.1 Total Bilirubin AST ALT Alkaline Phosphatase C-Reactive Protein Total Protein Albumin Quality VTE Prophylaxis VTE prophylaxis: pharmacologic ordered (When able to start the Eliquis again.)
[2025-02-09] MEDS: CEFEPIME 2 GM in SODIUM CHLORIDE 0.9% IV 50 ML 100 ML IVPB ×2 (09:28→21:13)
[2025-02-09] MEDS: VANCOMYCIN 1,500 MG/NS 500 ML 1,500 MG/500 ML BAG 250 MG IVPB ×2 (10:06→23:19)
--- NOTE | 2025-02-09 10:35 | PM.CNGS ---
Assessment and Plan Assessment and plan (1) Osteomyelitis: Code(s): M86.9 - Osteomyelitis, unspecified Status: Acute Assessment and Plan: Patient with uncontrolled diabetes and 2 pack-a-day smoking history presented to the emergency department yesterday with concerns for a diabetic ulcer to his right lateral foot that has been present for several weeks to months. He follows with a wound care doctor at [facility] and was last seen 2 days ago. He was told he would need to be hospitalized due to bone exposure in the wound concerning for osteomyelitis. Upon arrival to the emergency department, a foot x-ray was obtained and demonstrated significant erosive changes with pathological fracture of distal 5th metatarsal bone suggestive of osteomyelitis with pathologic fracture. Patient started on cefepime, Flagyl, vancomycin. Wound is nonhealing and has progressed to the point that it is down to the joint space. Patient will need amputation of the 5th toe either later today or tomorrow. Keep patient NPO for the time being. (2) Diabetic foot infection: Code(s): E11.628 - Type 2 diabetes mellitus with other skin complications; L08.9 - Local infection of the skin and subcutaneous tissue, unspecified Status: Acute Assessment and Plan: Hemoglobin A1c 6.6. (3) Morbid obesity with BMI of 40.0-44.9, adult: Code(s): E66.01 - Morbid (severe) obesity due to excess calories; Z68.41 - Body mass index [BMI] 40.0-44.9, adult Status: Acute (4) Type 2 DM with CKD stage 3 and hypertension: Code(s): E11.22 - Type 2 diabetes mellitus with diabetic chronic kidney disease; I12.9 - Hypertensive chronic kidney disease with stage 1 through stage 4 chronic kidney disease, or unspecified chronic kidney disease; N18.30 - Chronic kidney disease, stage 3 unspecified Status: Chronic (5) COPD (chronic obstructive pulmonary disease): Code(s): J44.9 - Chronic obstructive pulmonary disease, unspecified Status: Acute (6) Tobacco abuse: Code(s): Z72.0 - Tobacco use Status: Chronic Assessment and Plan: Patient currently smokes 2 packs of cigarettes per day. Advised cessation for optimal wound healing. (7) Hypertension: Code(s): I10 - Essential (primary) hypertension Status: Acute (8) Peripheral neuropathy: Code(s): G62.9 - Polyneuropathy, unspecified Status: Acute Plan Discussed patient's case and plan of care with Dr. Delgado. History of Present Illness Consult details Consult date: 02/09/25 Reason for consult: other (Diabetic ulcer with osteomyelitis) Requesting physician: Gonzalez Avila MD Narrative: Patient is a 69-year-old male with history of uncontrolled diabetes mellitus with CKD and hypertension, tobacco abuse (2 packs a day), atrial fibrillation (on Eliquis), and morbid obesity who we have been asked to see in surgical consultation for a diabetic right foot ulcer with osteomyelitis. Patient reports that he has had this wound to the right lateral aspect of his distal foot plantar surface for several months that recently began worsening. He follows with a wound care center at [facility]. They noticed 2 days ago that bone was exposed in the wound and advised hospitalization. Upon admission, patient had white blood cell count of 9.9. Foot x-ray demonstrated significant erosive changes with pathological fracture of distal 5th metatarsal bone suggestive of osteomyelitis with pathologic fracture. General surgery team consulted at this time. Of note, patient reportedly also follows with Podiatry. He also recently had an injury to his left ankle after fall at home on steps and he has been following with Dr. Faria. He was found to have a distal fibular fracture. He is a poor surgical candidate due to his comorbidities. He declined surgical treatment and he was conservatively managed with immobilization, ice, compression and elevation, as well as fracture boot for protected weight-bearing. Upon my interview with patient today, he denies any pain to the area aside from intermittently with walking. Denies any systemic symptoms like fever, chills, nausea/vomiting. Denies any trauma to the area. He cannot recall how this wound first started. Hemoglobin A1c 6.6. Patient states that he does not regularly check his blood sugars. He states that he lives alone by himself and ambulates by foot. Patient currently on IV antibiotic regimen of cefepime, Flagyl, vancomycin. WBC slightly increased at 10.4 today. [facility] Past Medical History Medical History Anxiety Depression Schizophrenia Morbid obesity with BMI of 40.0-44.9, adult Type 2 DM with CKD stage 3 and hypertension Poor dentition Acquired hypothyroidism Atrial fibrillation Coronary artery disease Surgical History Surgical History H/O heart artery stent Surgical history unknown Family History Family History Mother Depression Hypertension Family history of arthritis Diabetes mellitus Father Family history of alcoholism Sibling Family history of alcoholism Grandparent Family history of cardiovascular disease Social History Social History (Updated 02/09/25 @ 06:02 by Selina De La Torre APRN) Social History: The patient is x2. He is a current everyday smoker. The patient was by himself. He does have [employer] come and help him out. He has 1 child. His been on disability. Code status: Full code Smoking packs per day: 2 Smoking cigarettes per day: 40.0 Years smoked: 47 Smoking pack-years: 94.00 Smoking status: Current every day smoker Tobacco type: cigarettes Second hand tobacco smoke exposure: Yes Alcohol intake: never Substance use: former Substance use type: does not use Lack of Transportation: No Lack of Food: Never True Current Housing: I Have Housing Concerned About Future Housing: No Difficulty Paying Gas/Electric Bills: No Difficulty Paying for Meds: No Currently Unemployed: No Education: High School Diploma/GED Difficulty w/ Childcare or Family Care: No Spiritual care concerns: No Meds Home Medications and Allergies Home Medications ?Medication ?Instructions ?Recorded ?Confirmed ?Type aspirin 81 mg tablet,delayed 81 mg PO DAILY 03/27/19 02/08/25 History release (Adult Aspirin Regimen) clonazepam 0.5 mg tablet 0.5 mg PO BID PRN Anxiety 03/27/19 02/08/25 History loratadine 10 mg tablet (Allergy 10 mg PO DAILY 03/27/19 02/08/25 History Relief (loratadine)) cholecalciferol (vitamin D3) 250 50 mcg PO DAILY 07/18/19 02/08/25 History mcg (10,000 unit) capsule mecobalamin (vitamin B12) 5,000 500 mcg PO DAILY 07/18/19 02/08/25 History mcg disintegrating tablet melatonin 3 mg capsule 5 mg PO HS 10/10/19 02/08/25 History bupropion HCl 150 mg tablet,12 hr 150 mg PO DAILY 01/15/20 02/08/25 History sustained-release paliperidone 6 mg tablet,extended 6 mg PO HS 01/15/20 02/08/25 History release 24 hr pantoprazole 40 mg tablet,delayed See Rx Instructions .Route 06/30/21 02/08/25 Rx release .COMPLEX #90 tabs pravastatin 20 mg tablet 20 mg PO DAILY #90 tabs 07/03/21 02/08/25 Rx magnesium oxide 400 mg PO BID #60 tabs 08/15/21 02/08/25 Rx albuterol sulfate 90 mcg/actuation See Rx Instructions .Route 01/20/22 02/08/25 Rx aerosol inhaler .COMPLEX #8.5 grams hydroxyzine HCl 25 mg tablet 25 mg PO BID PRN Anxiety 06/02/22 02/08/25 History paroxetine HCl 40 mg tablet 40 mg PO DAILY 06/02/22 02/08/25 History apixaban 5 mg tablet (Eliquis) See Rx Instructions .Route 07/16/22 02/08/25 Rx .COMPLEX #180 tabs metoprolol tartrate 50 mg tablet See Rx Instructions .Route 06/19/24 02/08/25 Rx .COMPLEX #60 tabs walker #1 ea 01/16/25 02/08/25 Rx gabapentin 300 mg capsule 300 mg PO Q8H neuropathy 02/08/25 02/08/25 History semaglutide 3 mg tablet (Rybelsus) 7 mg PO DAILY@0800 diabetes 02/08/25 02/08/25 History Allergies Allergy/AdvReac Type Severity Reaction Status Date / Time Sulfa (Sulfonamide Allergy Unknown Unknown Verified 01/24/25 09:06 Antibiotics) niacin AdvReac Mild Flushing Verified 01/24/25 09:06 lactose milk products AdvReac Intermediate GI upset Uncoded 01/24/25 09:06 Vital Signs Vital Signs - 24 hr 02/08/25 14:38 02/08/25 19:06 02/08/25 20:20 Temperature 97.6 F 97.9 F Pulse Rate 87 81 81 Respiratory Rate 18 16 18 Blood Pressure 94/58 L 105/65 109/67 Pulse Oximetry 98 97 98 Oxygen Delivery Room Air 02/08/25 21:48 02/08/25 23:15 02/08/25 23:40 Temperature 97.6 F 97.6 F Pulse Rate 85 82 82 Respiratory Rate 18 22 H 22 H Blood Pressure 112/73 123/58 L 123/58 L Pulse Oximetry 94 94 94 Oxygen Delivery 02/09/25 01:55 02/09/25 04:02 02/09/25 08:00 Temperature 97.4 F L 97.0 F L Pulse Rate 80 93 103 H Respiratory Rate 20 18 16 Blood Pressure 149/87 H 127/87 Pulse Oximetry 92 95 93 Oxygen Delivery CPAP 02/09/25 09:52 Temperature Pulse Rate Respiratory Rate Blood Pressure Pulse Oximetry 93 Oxygen Delivery Room Air Exam Const: General: comfortable and no acute distress Eyes: General: appearance normal, both eyes and all related structures Neck: Neck: supple Resp: Effort & Inspection: normal respiratory effort Cardio: Rate: regular rate Skin: General skin exam: normal color Extrem: Ankle/foot/toe images:  1. Plantar aspect of right foot near area of metatarsal head with around a full-thickness ulcer. Wound bed predominantly yellow slough with some brown necrotic tissue present. Moderate amount of thick, purulent-appearing exudate visible in the wound bed. Bone palpable with multiple fragments exposed. Other: Dry healing ulcers to left heel and left barrera. Results Labs 02/09/25 05:50 02/09/25 05:50 Labs: Abnormal lab results 02/08/25 02/08/25 02/08/25 Range/Units 17:06 20:28 23:21 WBC (4.5-10.0) K/mm3 RBC 4.20 L (4.6-6.20) M/mm3 Hgb 12.6 L (14.0-18.0) g/dL Hct 38.3 L (42.0-52.0) % Plt Count 376 H (150-375) k/mm3 Cotton % (Auto) 10.0 H (2.6-8.5) % Cotton # (Auto) 1.0 H (0.1-0.6) K/mm3 ESR 55 H (0-20) mm/hr PT 15.2 H (11.1-14.7) Seconds APTT 40.8 H (22.3-36.8) Seconds Sodium 135 L (137-145) mmol/L Glucose 117 H (65-110) mg/dL POC Capillary Glucose 157 H 108 H (65-105) mg/dl Hemoglobin A1c (<5.7) % C-Reactive Protein 6.6 H (<1.0) mg/dL 02/09/25 02/09/25 02/09/25 Range/Units 05:49 05:50 06:54 WBC 10.4 H (4.5-10.0) K/mm3 RBC 4.04 L (4.6-6.20) M/mm3 Hgb 12.2 L (14.0-18.0) g/dL Hct 36.6 L (42.0-52.0) % Plt Count (150-375) k/mm3 Cotton % (Auto) (2.6-8.5) % Cotton # (Auto) (0.1-0.6) K/mm3 ESR (0-20) mm/hr PT (11.1-14.7) Seconds APTT (22.3-36.8) Seconds Sodium (137-145) mmol/L Glucose 119 H (65-110) mg/dL POC Capillary Glucose 141 H (65-105) mg/dl Hemoglobin A1c 6.6 H (<5.7) % C-Reactive Protein (<1.0) mg/dL Diabetes panel 02/08/25 02/09/25 02/09/25 Range/Units 17:06 05:49 05:50 Sodium 135 L 138 (137-145) mmol/L Potassium 4.3 4.0 (3.4-5.0) mmol/L Chloride 101 106 (98-107) mmol/L Carbon Dioxide 27 24 (22-30) mmol/L BUN 13 11 (9-20) mg/dL Creatinine 1.23 1.07 (0.7-1.3) mg/dL Glucose 117 H 119 H (65-110) mg/dL Hemoglobin A1c 6.6 H (<5.7) % Calcium 9.3 9.1 (8.4-10.2) mg/dL AST 23 (17-59) U/L ALT 15 (6-50) U/L Alkaline Phosphatase 68 (38-126) U/L Total Protein 7.5 (6.3-8.2) g/dL Albumin 4.0 (3.5-5.1) g/dL Calcium panel 02/08/25 02/09/25 Range/Units 17:06 05:50 Calcium 9.3 9.1 (8.4-10.2) mg/dL Albumin 4.0 (3.5-5.1) g/dL Pituitary panel 02/08/25 02/09/25 Range/Units 17:06 05:50 Sodium 135 L 138 (137-145) mmol/L Potassium 4.3 4.0 (3.4-5.0) mmol/L Chloride 101 106 (98-107) mmol/L Carbon Dioxide 27 24 (22-30) mmol/L BUN 13 11 (9-20) mg/dL Creatinine 1.23 1.07 (0.7-1.3) mg/dL Glucose 117 H 119 H (65-110) mg/dL Calcium 9.3 9.1 (8.4-10.2) mg/dL Adrenal panel 02/08/25 02/09/25 Range/Units 17:06 05:50 Sodium 135 L 138 (137-145) mmol/L Potassium 4.3 4.0 (3.4-5.0) mmol/L Chloride 101 106 (98-107) mmol/L Carbon Dioxide 27 24 (22-30) mmol/L BUN 13 11 (9-20) mg/dL Creatinine 1.23 1.07 (0.7-1.3) mg/dL Glucose 117 H 119 H (65-110) mg/dL Calcium 9.3 9.1 (8.4-10.2) mg/dL Total Bilirubin 0.5 (0.2-1.3) mg/dL AST 23 (17-59) U/L ALT 15 (6-50) U/L Alkaline Phosphatase 68 (38-126) U/L Total Protein 7.5 (6.3-8.2) g/dL Albumin 4.0 (3.5-5.1) g/dL All other labs normal.
--- NOTE | 2025-02-09 13:59 | ECG_ITS ---
Test Date: 2025-02-09 14:21:31 Measurements Intervals [place] Rate: 88 P: 0 OH: 0 QRS: -21 QRSD: 110 T: -9 QT: 367 QTc: 446 Interpretive Statements ATRIAL FIBRILLATION LOW QRS VOLTAGE IN EXTREMITY LEADS [QRS DEFLECTION < 0.5 mV IN LIMB LEADS] MODERATE INTRAVENTRICULAR CONDUCTION DELAY [105+ ms QRS DURATION, 80+ ms Q/S IN V1/V2, NO Q AND 60+ ms R IN I/aVL/V5/V6] nonspecific st changes No previous ECG available for comparison Electronically Signed On 02-09-2025 19:07:42 [employer] by Niharika Acevedo M.D.
--- NOTE | 2025-02-09 15:21 | WPDHPUPDATE1 ---
History and Physical Update Update Date/Time: 02/09/25 15:21 History and Physical has been reviewed, including an updated exam of the patient. There are NO changes in the patient's condition. Risks, benefits, and alternatives have been discussed and questions answered. Patient agrees to proceed with procedure.
[2025-02-09] MEDS: LACTATED RINGERS 1,000 ML 30 ML IV CONT (15:30)
--- NOTE | 2025-02-09 15:44 | WPDANESEPPF ---
Anes - Initial Pre Proc Eval Procedure: Operation Date: 02/09/25 16:30 Proposed Procedures p Incision and Drainage Right Foot Abscess, - Donavon Delgado MD s Amputation Right Fifth Toe - Donavon Delgado MD Date/Time: 02/09/25 15:44 Surgeon: Jose E Swanson MD Pre Op Diagnosis: type 2 diabetic with osteomyelitis and 5th metatar Patient Data Age: 69 Gender: M Height: 1.8 m Weight: 129 kg Last Vital Signs Temp 36.1 C L 02/09/25 08:00 Pulse 103 H 02/09/25 08:00 Resp 16 02/09/25 08:00 BP 127/87 02/09/25 08:00 Pulse Ox 93 02/09/25 09:52 O2 Del Method Room Air 02/09/25 09:52 Allergies Allergy/AdvReac Type Severity Reaction Status Date / Time Sulfa (Sulfonamide Allergy Unknown Unknown Verified 01/24/25 09:06 Antibiotics) niacin AdvReac Mild Flushing Verified 01/24/25 09:06 lactose milk products AdvReac Intermediate GI upset Uncoded 01/24/25 09:06 Home Medications ?Medication ?Instructions ?Recorded ?Confirmed ?Type aspirin 81 mg tablet,delayed 81 mg PO DAILY 03/27/19 02/08/25 History release (Adult Aspirin Regimen) clonazepam 0.5 mg tablet 0.5 mg PO BID PRN Anxiety 03/27/19 02/08/25 History loratadine 10 mg tablet (Allergy 10 mg PO DAILY 03/27/19 02/08/25 History Relief (loratadine)) cholecalciferol (vitamin D3) 250 50 mcg PO DAILY 07/18/19 02/08/25 History mcg (10,000 unit) capsule mecobalamin (vitamin B12) 5,000 500 mcg PO DAILY 07/18/19 02/08/25 History mcg disintegrating tablet melatonin 3 mg capsule 5 mg PO HS 10/10/19 02/08/25 History bupropion HCl 150 mg tablet,12 hr 150 mg PO DAILY 01/15/20 02/08/25 History sustained-release paliperidone 6 mg tablet,extended 6 mg PO HS 01/15/20 02/08/25 History release 24 hr pantoprazole 40 mg tablet,delayed See Rx Instructions .Route 06/30/21 02/08/25 Rx release .COMPLEX #90 tabs pravastatin 20 mg tablet 20 mg PO DAILY #90 tabs 07/03/21 02/08/25 Rx magnesium oxide 400 mg PO BID #60 tabs 08/15/21 02/08/25 Rx albuterol sulfate 90 mcg/actuation See Rx Instructions .Route 01/20/22 02/08/25 Rx aerosol inhaler .COMPLEX #8.5 grams hydroxyzine HCl 25 mg tablet 25 mg PO BID PRN Anxiety 06/02/22 02/08/25 History paroxetine HCl 40 mg tablet 40 mg PO DAILY 06/02/22 02/08/25 History apixaban 5 mg tablet (Eliquis) See Rx Instructions .Route 07/16/22 02/08/25 Rx .COMPLEX #180 tabs metoprolol tartrate 50 mg tablet See Rx Instructions .Route 06/19/24 02/08/25 Rx .COMPLEX #60 tabs walker #1 ea 01/16/25 02/08/25 Rx gabapentin 300 mg capsule 300 mg PO Q8H neuropathy 02/08/25 02/08/25 History semaglutide 3 mg tablet (Rybelsus) 7 mg PO DAILY@0800 diabetes 02/08/25 02/08/25 History Laboratory Tests 02/08/25 02/08/25 02/08/25 17:06 20:28 23:21 WBC 9.9 K/mm3 (4.5-10.0) RBC 4.20 L M/mm3 (4.6-6.20) Hgb 12.6 L g/dL (14.0-18.0) Hct 38.3 L % (42.0-52.0) MCV 91.2 fl (80-100) MCH 30.0 pg (26-34) MCHC 32.9 g/dl (32-36) RDW 14.3 % (11.5-14.5) Plt Count 376 H k/mm3 (150-375) MPV 9.0 fl (7.4-10.4) Immature Gran % (Auto) 0.2 % (0-0.5) Neut % (Auto) 64.0 % (45.5-73.1) Lymph % (Auto) 22.9 % (18.3-44.2) [place] % (Auto) 10.0 H % (2.6-8.5) Eos % (Auto) 2.2 % (0-4.4) Baso % (Auto) 0.7 % (0.2-1.2) Lymph # (Auto) 2.26 K/mm3 (0.9-3.2) [place] # (Auto) 1.0 H K/mm3 (0.1-0.6) Eos # (Auto) 0.2 K/mm3 (0-0.3) Baso # (Auto) 0.1 K/mm3 (0.0-0.1) Abs Immat Gran (auto) 0.02 K/mm3 (0.00-0.031) Absolute Neuts (auto) 6.3 K/mm3 (1.3-6.7) Absolute Nucleated RBC 0.000 K/mm3 (0.0-0.012) Nucleated RBC % 0.0 % (0.0-0.2) ESR 55 H mm/hr (0-20) PT 15.2 H Seconds (11.1-14.7) INR 1.2 APTT 40.8 H Seconds (22.3-36.8) Sodium 135 L mmol/L (137-145) Potassium 4.3 mmol/L (3.4-5.0) Chloride 101 mmol/L (98-107) Carbon Dioxide 27 mmol/L (22-30) Anion Gap 7 mmol/L (4-12) BUN 13 mg/dL (9-20) Creatinine 1.23 mg/dL (0.7-1.3) Estim Creat Clear Calc 72 ml/min Estimated GFR 59 (59 - ) Glucose 117 H mg/dL (65-110) POC Capillary Glucose 157 H mg/dl 108 H mg/dl (65-105) (65-105) Hemoglobin A1c Lactic Acid 1.0 mmol/L (0.7-2.0) Calcium 9.3 mg/dL (8.4-10.2) Total Bilirubin 0.5 mg/dL (0.2-1.3) AST 23 U/L (17-59) ALT 15 U/L (6-50) Alkaline Phosphatase 68 U/L (38-126) C-Reactive Protein 6.6 H mg/dL (<1.0) Total Protein 7.5 g/dL (6.3-8.2) Albumin 4.0 g/dL (3.5-5.1) 02/09/25 02/09/25 02/09/25 05:49 05:50 06:54 WBC 10.4 H K/mm3 (4.5-10.0) RBC 4.04 L M/mm3 (4.6-6.20) Hgb 12.2 L g/dL (14.0-18.0) Hct 36.6 L % (42.0-52.0) MCV 90.6 fl (80-100) MCH 30.2 pg (26-34) MCHC 33.3 g/dl (32-36) RDW 14.2 % (11.5-14.5) Plt Count 347 k/mm3 (150-375) MPV 9.0 fl (7.4-10.4) Immature Gran % (Auto) Neut % (Auto) Lymph % (Auto) [place] % (Auto) Eos % (Auto) Baso % (Auto) Lymph # (Auto) [place] # (Auto) Eos # (Auto) Baso # (Auto) Abs Immat Gran (auto) Absolute Neuts (auto) Absolute Nucleated RBC Nucleated RBC % ESR PT INR APTT Sodium 138 mmol/L (137-145) Potassium 4.0 mmol/L (3.4-5.0) Chloride 106 mmol/L (98-107) Carbon Dioxide 24 mmol/L (22-30) Anion Gap 8 mmol/L (4-12) BUN 11 mg/dL (9-20) Creatinine 1.07 mg/dL (0.7-1.3) Estim Creat Clear Calc 81 ml/min Estimated GFR > 60 (59 - ) Glucose 119 H mg/dL (65-110) POC Capillary Glucose 141 H mg/dl (65-105) Hemoglobin A1c 6.6 H % (<5.7) Lactic Acid Calcium 9.1 mg/dL (8.4-10.2) Total Bilirubin AST ALT Alkaline Phosphatase C-Reactive Protein Total Protein Albumin 02/09/25 12:47 WBC RBC Hgb Hct MCV MCH MCHC RDW Plt Count MPV Immature Gran % (Auto) Neut % (Auto) Lymph % (Auto) [place] % (Auto) Eos % (Auto) Baso % (Auto) Lymph # (Auto) [place] # (Auto) Eos # (Auto) Baso # (Auto) Abs Immat Gran (auto) Absolute Neuts (auto) Absolute Nucleated RBC Nucleated RBC % ESR PT INR APTT Sodium Potassium Chloride Carbon Dioxide Anion Gap BUN Creatinine Estim Creat Clear Calc Estimated GFR Glucose POC Capillary Glucose 132 H mg/dl (65-105) Hemoglobin A1c Lactic Acid Calcium Total Bilirubin AST ALT Alkaline Phosphatase C-Reactive Protein Total Protein Albumin Patient hx anesthesia problems: none Family hx anesthesia problems: none Results Review: All pre-operative results and documents have been reviewed as part of the pre-operative evaluation. [facility] Past Medical History Medical History (Updated 02/09/25 @ 15:17 by Jose Mayfield DO) CASI (obstructive sleep apnea) Anxiety Depression Schizophrenia Morbid obesity with BMI of 40.0-44.9, adult Type 2 DM with CKD stage 3 and hypertension Poor dentition Acquired hypothyroidism Atrial fibrillation Coronary artery disease Surgical History Surgical History H/O heart artery stent Surgical history unknown Family History Family History Mother Depression Hypertension Family history of arthritis Diabetes mellitus Father Family history of alcoholism Sibling Family history of alcoholism Grandparent Family history of cardiovascular disease Social History Social History (Updated 02/09/25 @ 06:02 by Selina De La Torre APRN) Social History: The patient is x2. He is a current everyday smoker. The patient was by himself. He does have [employer] come and help him out. He has 1 child. His been on disability. Code status: Full code Smoking packs per day: 2 Smoking cigarettes per day: 40.0 Years smoked: 47 Smoking pack-years: 94.00 Smoking status: Current every day smoker Tobacco type: cigarettes Second hand tobacco smoke exposure: Yes Alcohol intake: never Substance use: former Substance use type: does not use Lack of Transportation: No Lack of Food: Never True Current Housing: I Have Housing Concerned About Future Housing: No Difficulty Paying Gas/Electric Bills: No Difficulty Paying for Meds: No Currently Unemployed: No Education: High School Diploma/GED Difficulty w/ Childcare or Family Care: No Spiritual care concerns: No Anes - Eval Final PreProcedure Day of Procedure 02/09/25 15:44 Patient weight: obese Heart: regular rate and rhythm Lungs: clear to auscultation Airway: Mallampati scale class III Neurological: alert and oriented Last oral intake: >/= 8 hours ASA classification: IV Emergent: no Anesthetic plan: proceed Anesthesia type and monitoring: general LMA and standard monitoring Results Review: All pre-operative results and documents have been reviewed as part of the pre-operative evaluation. Informed Consent: The patient's anesthetic plan and its attendant risks and benefits were discussed with the patient/family/POA. Questions were solicited and answers provided to the satisfaction of the patient/family/POA.
--- NOTE | 2025-02-09 16:34 | S_PTH ---
PATIENT: Cas Ruiz LOC: [id number] U#:[id number] AGE/SX: 69/M ROOM: 330 RE02/09/[address]: Marifer Pillai APRN : 1955 BED: 02 DIS: 02/20/2025 SPEC #: [id number] RECD: 02/12/25 07:32 STATUS: KEIKO MACIEL #: [id number] STONE: 02/09/25 16:[address]: Donavon Delgado DEPT: [facility] Surgical RECD BY: Bonita Saleh ENTERED: 02/12/25 07:32 SP TYPE: Surgical OTHR DR: MD Min Griffin MD Laura A. Wilson, PROJECT ENGINEER [employer] Tissues: A - Toe Procedures: Hematoxylin and Eosin Stain Gross and Microscopic Level 4 Decalcification
--- NOTE | 2025-02-09 16:37 | SUR.OPER ---
culture given to Wyatt
--- NOTE | 2025-02-09 17:06 | P.OP_ITS ---
Procedure Note - Detailed Date of Procedure 02/09/25 Pre-op Diagnosis Diabetic right foot ulcer with abscess osteomyelitis of 5th MTP joint Post-op Diagnosis Same Procedure Performed Incision and drainage of right foot abscess with transmetatarsal amputation of right 5th toe. Surgeon Donavon Delgado MD Disaster Recovery Analyst Latrice ROSARIO Anesthesia General Indications Patient is a 69-year-old male who has had a diabetic right lateral foot wound for several weeks. He has abdomen abscess in the area with involvement of the right 5th metatarsophalangeal joint clinical osteomyelitis. He presents now for incision and drainage abscess and transmetatarsal amputation of the right 5th digit. Findings Patient had a brewing abscess extending into the right 5th MTP joint. There was necrotic tissue within the ulcer and small amount of pus around the joint. Culture of the joint space was obtained and sent to microbiology for Gram stain, aerobic, and anaerobic cultures. The proximal metatarsal resection margin was viable without evidence of osteomyelitis. There was good bleeding from the surrounding tissues. Description of Procedure After informed consent was obtained patient brought to the operating room placed supine position and general LMA anesthesia was administered. The right lower extremity from the mid tibia region distally to the foot was then prepped and draped usual sterile fashion. A time-out was then performed correctly identifying the patient as well as procedure to be performed. Site marking was verified and IV antibiotics was already scheduled and given. First injected about 10cc of 1% lidocaine without epinephrine around the area of the abscess and 5th metatarsophalangeal joint on the right foot. I then used a scalpel to incise around the base of the right 5th toe extend the incision laterally to include the whole ulcer and extending to the lateral side of the metatarsal shaft. I sharply disarticulated the right 5th toe at the metatarsophalangeal joint. I then sharply divided the flexor and extensor tendons to the right 5th toe and then used a periosteal elevator to dissect all the way down to the shaft of the metatarsal proximal to the head metatarsal. I then used a bone cutter to divide the right 5th metatarsal about 2cm proximal to the metatarsal head. The metatarsal head was then sent with the right 5th toe to pathology. There was good brisk bleeding from the tissues and sewed tissues electrocautery was then used to help with hemostasis. I then irrigated sterile saline solution and when the bleeding was down to just some oozing I placed 2 pieces of Surgicel topical hemostatic agent into the wound base around the skin edges. The wound was then packed with additional 4x4 gauze and fluffed 4x4 gauze. Was then wrapped with a Kerlix gauze and then an Esau wrap. The patient tolerated the procedure well no complications. All sponges, needles, and instrument counts were correct at the end procedure. EBL was _40__cc. The patient was awakened and taken to recovery in stable and satisfactory condition. Implants None Estimated Blood Loss 40 Drains No Packing Yes (Surgicel x2 wound base.) Pathology Yes (Right 5th toe and metatarsal head pathology) Complications No immediate complications Condition Stable Disposition PACU [facility] Billing Surgery - Charge Forward: Surgery Billing
[2025-02-09] MEDS: MELATONIN 5 MG TABLET PO (21:09)
[2025-02-09] MEDS: PRAVASTATIN SODIUM 20 MG TABLET PO (21:09)
[2025-02-10] VITALS: BP 140/87; PULSE 84; RESP 18; TEMP 36.9; O2SAT 94
[2025-02-10] MEDS: GABAPENTIN 300 MG CAPSULE PO ×3 (05:30→21:01)
[2025-02-10] MEDS: metroNIDAZOLE 500 MG/ISO 100ML 500 MG/100 ML BAG 100 MG IVPB ×3 (05:31→23:00)
[2025-02-10 07:46] LABS: Hematocrit 37.0 % (42.0-52.0); Hemoglobin 12.1 g/dL (14.0-18.0); Mean Corpuscular HGB Conc 32.7 g/dl (32-36); Mean Corpuscular Hemoglobin 29.8 pg (26-34); Mean Corpuscular Volume 91.1 fl (80-100); Platelet Count Result 307 k/mm3 (150-375); Red Blood Count 4.06 M/mm3 (4.6-6.20); White Blood Count 10.3 K/mm3 (4.5-10.0)
[2025-02-10 08:00] VITALS: BP 125/65; PULSE 96; RESP 14; TEMP 36.6; O2SAT 91
--- NOTE | 2025-02-10 08:06 | P.PNIM_ITS ---
Progress Note: A&P Assessment and Plan (1) Osteomyelitis: Code(s): M86.9 - Osteomyelitis, unspecified Status: Acute Assessment and Plan: -surgery has been consulted. -Eliquis and aspirin were held for planned operative management, restart tomorrow 02/11 -patient is s/p incision and drainage of right foot abscess with transmetatarsal amputation of right 5th toe per Dr. Delgado on 02/09 -Foot X-Ray 02/08/25 17:23 IMPRESSION: 1. Significant erosive changes with pathological fracture of distal fifth metatarsal bone suggestive of osteomyelitis with pathologic fracture. -Continue Flagyl, cefepime and vancomycin. -blood cultures are pending and wound cultures are pending. -the patient does not appear to be septic and his vital signs are stable. -daily CBC have been ordered. Patient has a normal white count And he is afebrile. -pain control -PT/OT consult once weight bearing status is clarified by surgery team (2) Type 2 DM with CKD stage 3 and hypertension: Code(s): E11.22 - Type 2 diabetes mellitus with diabetic chronic kidney disease; I12.9 - Hypertensive chronic kidney disease with stage 1 through stage 4 chronic kidney disease, or unspecified chronic kidney disease; N18.30 - Chronic kidney disease, stage 3 unspecified Status: Chronic Assessment and Plan: -accu checks -avoid hypoglycemia -Hgba1c 02/09/25 6.6% -the patient does not monitor his blood sugars at home. -rybelsus is nonformulary, hold while inpatient, plan to restart on discharge -SSI low dose with meals -monitor blood sugars and adjust as indicated (3) Peripheral neuropathy: Code(s): G62.9 - Polyneuropathy, unspecified Status: Acute Assessment and Plan: -continue with gabapentin (4) COPD (chronic obstructive pulmonary disease): Code(s): J44.9 - Chronic obstructive pulmonary disease, unspecified Status: Acute Assessment and Plan: -continue with inhaler (5) CASI on CPAP: Code(s): G47.33 - Obstructive sleep apnea (adult) (pediatric); Z99.89 - Dependence on other enabling machines and devices Status: Chronic Assessment and Plan: -auto titrate CPAP/BiPAP Rodríguez settings. (6) Tobacco abuse: Code(s): Z72.0 - Tobacco use Status: Chronic Assessment and Plan: -smoking cessation has been initiated. (7) Dyslipidemia: Code(s): E78.5 - Hyperlipidemia, unspecified Status: Acute Assessment and Plan: -continue with pravastatin (8) Hypertension: Code(s): I10 - Essential (primary) hypertension Status: Acute Assessment and Plan: -continue with metoprolol (9) Anxiety: Code(s): F41.9 - Anxiety disorder, unspecified Status: Acute Assessment and Plan: -continue with hydroxyzine, clonazepam, and paroxetine (10) Depression: Code(s): F32.A - Depression, unspecified Status: Acute Assessment and Plan: -continue with bupropion (11) Schizophrenia: Code(s): F20.9 - Schizophrenia, unspecified Status: Acute Assessment and Plan: -paliperidone is nonformulary. Subjective Date/time seen: 02/10/25 08:06 Interval history: Patient seen for a follow up visit. Patient lying in bed, in no acute distress. Patient is status post incision and drainage of right foot abscess with transmetatarsal amputation of right 5th toe per general surgery Dr. Delgado on 02/09. Patient continues on IV vancomycin, cefepime and Flagyl. Follow up wound cultures from OR. Patient reports pain is controlled. PT/OT consult once weight bearing status is clarified by surgeon. Review of Systems Review of Systems: 12 systems were reviewed and are negativ e except for as per HPI. Exam Narrative: General: well appearing, appears stated age. HEENT: normocephalic, atraumatic. Mucous membranes moist. EOMI, PERRLA Respiratory: clear bilaterally. No rales/rhonic/wheezes. Cardiovascular: Regular rate and rhythm, normal S1-S2. No murmurs, rubs, or clicks. Abdomen: Soft, round, no pulsatile masses, nondistended and nontender. No rebound, no guarding. Bowel sounds present to all four quadrants. Extremities: No cyanosis, clubbing, or edema present. Neuro: Alert and orientated x 4. PERRLA. Skin: Warm, dry, and intact, without rash, erythema, or lesion. Right foot with surgical dressing in place. Psych: pleasant, cooperative, normal speech, normal affect, no hallucinations, no dysarthia Objective Data Vital Signs Vital Signs: Vital Signs - 24 hr 02/09/25 09:52 02/09/25 15:40 02/09/25 16:56 Temperature 97.4 F L 97.5 F L Pulse Rate 109 H 89 Respiratory Rate 18 13 Blood Pressure 131/78 103/61 Pulse Oximetry 93 94 100 Oxygen Delivery Room Air Room Air Simple Face Mask Oxygen Flow Rate 8 02/09/25 17:03 02/09/25 17:15 02/09/25 17:30 Temperature Pulse Rate 84 88 81 Respiratory Rate 15 17 18 Blood Pressure 118/81 128/82 130/78 Pulse Oximetry 100 100 99 Oxygen Delivery Simple Face Mask Simple Face Mask Room Air Oxygen Flow Rate 8 8 02/09/25 17:45 02/09/25 17:55 02/09/25 20:00 Temperature 97.4 F L Pulse Rate 90 89 Respiratory Rate 17 18 Blood Pressure 132/72 125/77 Pulse Oximetry 94 92 Oxygen Delivery Room Air Room Air Room Air Oxygen Flow Rate 02/09/25 21:09 02/10/25 00:00 Temperature 98.4 F Pulse Rate 82 84 Respiratory Rate 18 Blood Pressure 140/87 Pulse Oximetry 94 Oxygen Delivery Oxygen Flow Rate Intake/Output Intake/Output: Intake & Output 02/07/25 02/08/25 02/09/25 02/10/25 23:59 23:59 23:59 23:59 Intake Total 1050 1000 1100 Balance 1050 1000 1100 Meds/Results Medications: Active Medications Generic Name Dose Route Start Last Admin Trade Name Freq PRN Reason Stop Dose Admin Acetaminophen 650 mg 02/08/25 20:45 Acetaminophen 325 Mg Tablet PO Q4H PRN Mild Pain (1-3) or Fever Acetaminophen 650 mg 02/09/25 12:22 Acetaminophen 325 Mg Tablet PO Q4H PRN Headache Hydrocodone Bitart/Acetaminophen 1 tab 02/09/25 12:22 Hydrocodone/Acetaminophen (*Crx) 5-325 Mg Tablet PO Q4H PRN Pain Rated 4-6 Hydrocodone Bitart/Acetaminophen 1 tab 02/09/25 12:22 Hydrocodone/Acetaminophen (*Crx) 7.5-325 Mg Tablet PO Q4H PRN Pain Rated 7-10 Albuterol 2 puff 02/09/25 04:10 Albuterol Sulfate (*Sp) Aerosol 1 Puff INHALATION Q6HRT PRN SHORTNESS OF BREATH/WHEEZING Bupropion HCl 150 mg 02/09/25 09:00 02/09/25 08:34 Bupropion Hcl Sr (12 Hr) 150 Mg Tab PO 150 mg DAILY [facility] Administration Clonazepam 0.5 mg 02/09/25 04:06 02/09/25 04:37 Clonazepam (*Crx) 0.5 Mg Tablet PO 0.5 mg BID PRN Administration Anxiety Cyanocobalamin 500 mcg 02/09/25 09:00 02/09/25 08:33 Cyanocobalamin 500 Mcg Tablet PO 03/11/25 08:59 500 mcg DAILY [facility] Administration Dextrose 12.5 gm 02/09/25 05:45 Dextrose 50% 25 Gm/50 Ml Syringe IV PUSH PRN PRN Hypoglycemia Protocol Fentanyl Citrate 25 mcg 02/09/25 15:38 Fentanyl Citrate Inj (*Crx) 100 Mcg/2 Ml Vial IV PUSH Q2M PRN Pain Gabapentin 300 mg 02/09/25 06:00 02/10/25 05:30 Gabapentin 300 Mg Capsule PO 300 mg Q8HR [facility] Administration Glucagon 1 mg 02/09/25 04:10 Glucagon For Inj 1 Mg Vial IM PRN PRN Hypoglycemia Protocol Glucose 15 gm 02/09/25 04:10 Glucose Oral Gel 15 Gm Of Glucse In 37.5 Gm Tube PO PRN PRN Hypoglycemia Protocol Hydroxyzine HCl 25 mg 02/09/25 04:06 Hydroxyzine Hcl 25 Mg Tablet PO BID PRN Anxiety Dextrose 1,000 mls @ 100 mls/hr 02/09/25 05:45 Dextrose 5% 1,000 Ml IVPB PRN PRN Hypoglycemia Protocol Cefepime HCl 2 gm/ Sodium 50 mls @ 100 mls/hr 02/09/25 09:00 02/09/25 21:43 Chloride IVPB Infused Q12H [facility] Infusion Metronidazole 500 mg in 100 mls @ 100 mls/hr 02/09/25 06:00 02/10/25 06:31 Flagyl 500 Mg/Iso Soln 100 Ml IVPB Infused Q8HR [facility] Infusion Vancomycin HCl 1,500 mg in 500 mls @ 250 mls/hr 02/09/25 09:00 02/10/25 01:19 Vancomycin 1,500 Mg/Ns 500 Ml IVPB Infused Q12H [facility] Infusion Lactated Ringer's 1,000 mls @ 30 mls/hr 02/09/25 15:40 02/09/25 17:54 Lr - Lactated Ringers Iv IV CONT Infused .Q24H [facility] Infusion Lactated Ringer's 1,000 mls @ 30 mls/hr 02/09/25 15:40 02/09/25 18:18 Lr - Lactated Ringers Iv IV CONT Not Given .Q24H [facility] Insulin Aspart 2 - 5 units 02/09/25 06:00 02/10/25 06:43 Insulin Aspart (*Bkc) 100 Units/Ml SUB-Q Not Given Q6HR [facility] Protocol Loratadine 10 mg 02/09/25 09:00 02/09/25 08:33 Loratadine 10 Mg Tablet PO 10 mg DAILY [facility] Administration Magnesium Oxide 400 mg 02/09/25 09:00 02/09/25 18:13 Magnesium Oxide 400 Mg Tablet PO 400 mg BID [facility] Administration Melatonin 5 mg 02/09/25 21:00 02/09/25 21:09 Melatonin 5 Mg Tablet PO 5 mg HS [facility] Administration Metoprolol Tartrate 50 mg 02/09/25 09:00 02/09/25 21:09 Metoprolol Tartrate 50 Mg Tab BY MOUTH 50 mg Q12HR [facility] Administration Morphine Sulfate 4 mg 02/09/25 17:03 Morphine Sulfate (*Crx) 4 Mg/Ml Inj IV PUSH Q4H PRN Pain Rated 7-10 Nicotine 1 patch 02/08/25 21:25 02/09/25 08:32 Nicotine (*Pbkc) 14 Mg Patch TRANSDERM 1 patch DAILY [facility] Administration Ondansetron HCl 4 mg 02/08/25 20:45 Ondansetron Inj 4 Mg/2 Ml Vial IV PUSH Q4H PRN Nausea Ondansetron HCl 4 mg 02/09/25 15:38 Ondansetron Inj 4 Mg/2 Ml Vial IV PUSH ONCE PRN Nausea Pantoprazole Sodium 40 mg 02/09/25 09:00 02/09/25 08:35 Pantoprazole 40 Mg Tablet BY MOUTH 40 mg DAILY [facility] Administration Paroxetine HCl 40 mg 02/09/25 09:00 02/09/25 08:35 Paroxetine 20 Mg Tablet PO 40 mg DAILY [facility] Administration Pravastatin Sodium 20 mg 02/09/25 21:00 02/09/25 21:09 Pravastatin Sodium 20 Mg Tablet PO 20 mg QHS [facility] Administration Vitamin D 50 mcg 02/09/25 09:00 02/09/25 08:34 Cholecalciferol (Vitamin D3) 25 Mcg (1,000 Units) Tablet PO 50 mcg DAILY [facility] Administration Radiology Results: ITS Impressions Foot X-Ray 02/08/25 17:23 IMPRESSION: 1. Significant erosive changes with pathological fracture of distal fifth metatarsal bone suggestive of osteomyelitis with pathologic fracture. Labs Labs: Laboratory Results - last 24 hr 02/09/25 02/09/25 02/10/25 12:47 17:02 05:56 WBC RBC Hgb Hct MCV MCH MCHC RDW Plt Count MPV POC Capillary Glucose 132 H 115 H 136 H 02/10/25 07:42 WBC 10.3 H RBC 4.06 L Hgb 12.1 L Hct 37.0 L MCV 91.1 MCH 29.8 MCHC 32.7 RDW 14.0 Plt Count 307 MPV 8.9 POC Capillary Glucose Quality VTE Prophylaxis VTE prophylaxis: pharmacologic ordered (When able to start the Eliquis again.)
[2025-02-10 08:08] LABS: Anion Gap 5 mmol/L (4-12); Blood Urea Nitrogen 10 mg/dL (9-20); Calcium 9.0 mg/dL (8.4-10.2); Carbon Dioxide 26 mmol/L (22-30); Chloride 105 mmol/L (98-107); Estimated CRCL calculation 86 ml/min; Estimated Glomerular Filt Rate > 60; Glucose 117 mg/dL (65-110); Potassium 4.2 mmol/L (3.4-5.0); Sodium 136 mmol/L (137-145)
[2025-02-10 09:32] VITALS: PULSE 74
[2025-02-10] MEDS: METOPROLOL TARTRATE 50 MG TAB BY MOUTH ×2 (09:32→20:53)
[2025-02-10] MEDS: PANTOPRAZOLE 40 MG TABLET BY MOUTH (09:32)
[2025-02-10] MEDS: MAGNESIUM OXIDE 400 MG TABLET PO ×2 (09:32→17:38)
[2025-02-10] MEDS: CYANOCOBALAMIN 500 MCG TABLET PO (09:33)
[2025-02-10] MEDS: CHOLECALCIFEROL (VITAMIN D3) 25 MCG (1,000 UNITS) TABLET 50 MCG PO (09:33)
[2025-02-10] MEDS: LORATADINE 10 MG TABLET PO (09:33)
[2025-02-10] MEDS: buPROPion HCL SR (12 HR) 150 MG TAB PO (09:34)
[2025-02-10] MEDS: NICOTINE (*PBKC) 14 MG PATCH 1 PATCH TRANSDERM (09:34)
[2025-02-10] MEDS: CEFEPIME 2 GM in SODIUM CHLORIDE 0.9% IV 50 ML 100 ML IVPB ×2 (09:34→20:53)
[2025-02-10] MEDS: VANCOMYCIN 1,500 MG/NS 500 ML 1,500 MG/500 ML BAG 250 MG IVPB ×2 (10:46→20:53)
--- NOTE | 2025-02-10 15:39 | WPDPN ---
Progress Note: A&P Assessment and Plan (1) Diabetic foot infection: Code(s): E11.628 - Type 2 diabetes mellitus with other skin complications; L08.9 - Local infection of the skin and subcutaneous tissue, unspecified Status: Acute Assessment and Plan: Postop day 1 status post incision drainage of lateral right foot abscess with transmetatarsal amputation of right 5th toe. The wound is open and packed. The discoloration of the tissue was due to application of Surgicel for topical hemostatic agent intraoperatively. All the surrounding tissue appears to be viable. All the remaining toes are viable. G stain and wound cultures are pending. Continue IV antibiotics. Dressing change today and redressed with normal saline moist to dry packing with 4x4 gauze and Kerlix gauze and Esau wrap. Patient can be weight-bearing only on the right heel. Continue IV antibiotics. (2) Osteomyelitis: Code(s): M86.9 - Osteomyelitis, unspecified Status: Acute Subjective Date/time seen: 02/10/25 15:39 Interval history: Patient without significant clinical changes. No complaints today. Tolerating a regular diabetic diet. No bleeding through the right foot dressing[place] [id number]. No fever. Cultures from the right foot abscess are pending. G stain is pending. Exam Extrem: Other: Right lateral forefoot wound dressing removed. The base the wound is discolored and dark which is due to the application of Surgicel to the wound to control postoperative oozing of blood. Patient had very good bleeding from the tissue edges intraoperatively so I do not think any of the tissue is necrotic. There is no spreading erythema along the plantar or dorsal aspects of the foot. Remaining toes on the right foot are all viable without evidence of ischemia. Objective Data Vital Signs Vital Signs: Vital Signs - 24 hr 02/09/25 15:40 02/09/25 16:56 02/09/25 17:03 Temperature 36.3 C L 36.4 C L Pulse Rate 109 H 89 84 Respiratory Rate 18 13 15 Blood Pressure 131/78 103/61 118/81 Pulse Oximetry 94 100 100 Oxygen Delivery Room Air Simple Face Mask Simple Face Mask Oxygen Flow Rate 8 8 02/09/25 17:15 02/09/25 17:30 02/09/25 17:45 Temperature Pulse Rate 88 81 90 Respiratory Rate 17 18 17 Blood Pressure 128/82 130/78 132/72 Pulse Oximetry 100 99 94 Oxygen Delivery Simple Face Mask Room Air Room Air Oxygen Flow Rate 8 02/09/25 17:55 02/09/25 20:00 02/09/25 21:09 Temperature 36.3 C L Pulse Rate 89 82 Respiratory Rate 18 Blood Pressure 125/77 Pulse Oximetry 92 Oxygen Delivery Room Air Room Air Oxygen Flow Rate 02/10/25 00:00 02/10/25 08:00 02/10/25 09:32 Temperature 36.9 C 36.6 C Pulse Rate 84 96 74 Respiratory Rate 18 14 Blood Pressure 140/87 125/65 Pulse Oximetry 94 91 Oxygen Delivery Oxygen Flow Rate Intake/Output Intake/Output: Intake & Output 02/07/25 02/08/25 02/09/25 02/10/25 23:59 23:59 23:59 23:59 Intake Total 1050 1000 1580 Balance 1050 1000 1580 Meds/Results Medications: Active Medications Generic Name Dose Route Start Last Admin Trade Name Freq PRN Reason Stop Dose Admin Acetaminophen 650 mg 02/08/25 20:45 Acetaminophen 325 Mg Tablet PO Q4H PRN Mild Pain (1-3) or Fever Acetaminophen 650 mg 02/09/25 12:22 Acetaminophen 325 Mg Tablet PO Q4H PRN Headache Hydrocodone Bitart/Acetaminophen 1 tab 02/09/25 12:22 Hydrocodone/Acetaminophen (*Crx) 5-325 Mg Tablet PO Q4H PRN Pain Rated 4-6 Hydrocodone Bitart/Acetaminophen 1 tab 02/09/25 12:22 Hydrocodone/Acetaminophen (*Crx) 7.5-325 Mg Tablet PO Q4H PRN Pain Rated 7-10 Albuterol 2 puff 02/09/25 04:10 Albuterol Sulfate (*Sp) Aerosol 1 Puff INHALATION Q6HRT PRN SHORTNESS OF BREATH/WHEEZING Apixaban 5 mg 02/11/25 09:00 Apixaban 5 Mg Tablet PO Q12HR [facility] Aspirin 81 mg 02/11/25 09:00 Aspirin 81 Mg Enteric Tablet PO QAM [facility] Bupropion HCl 150 mg 02/09/25 09:00 02/10/25 09:34 Bupropion Hcl Sr (12 Hr) 150 Mg Tab PO 150 mg DAILY [facility] Administration Clonazepam 0.5 mg 02/09/25 04:06 02/09/25 04:37 Clonazepam (*Crx) 0.5 Mg Tablet PO 0.5 mg BID PRN Administration Anxiety Cyanocobalamin 500 mcg 02/09/25 09:00 02/10/25 09:33 Cyanocobalamin 500 Mcg Tablet PO 03/11/25 08:59 500 mcg DAILY [facility] Administration Dextrose 12.5 gm 02/09/25 05:45 Dextrose 50% 25 Gm/50 Ml Syringe IV PUSH PRN PRN Hypoglycemia Protocol Fentanyl Citrate 25 mcg 02/09/25 15:38 Fentanyl Citrate Inj (*Crx) 100 Mcg/2 Ml Vial IV PUSH Q2M PRN Pain Gabapentin 300 mg 02/09/25 06:00 02/10/25 14:35 Gabapentin 300 Mg Capsule PO 300 mg Q8HR [facility] Administration Glucagon 1 mg 02/09/25 04:10 Glucagon For Inj 1 Mg Vial IM PRN PRN Hypoglycemia Protocol Glucose 15 gm 02/09/25 04:10 Glucose Oral Gel 15 Gm Of Glucse In 37.5 Gm Tube PO PRN PRN Hypoglycemia Protocol Hydroxyzine HCl 25 mg 02/09/25 04:06 Hydroxyzine Hcl 25 Mg Tablet PO BID PRN Anxiety Dextrose 1,000 mls @ 100 mls/hr 02/09/25 05:45 Dextrose 5% 1,000 Ml IVPB PRN PRN Hypoglycemia Protocol Cefepime HCl 2 gm/ Sodium 50 mls @ 100 mls/hr 02/09/25 09:00 02/10/25 09:34 Chloride IVPB 100 mls/hr Q12H [facility] Administration Metronidazole 500 mg in 100 mls @ 100 mls/hr 02/09/25 06:00 02/10/25 14:35 Flagyl 500 Mg/Iso Soln 100 Ml IVPB 100 mls/hr Q8HR [facility] Administration Vancomycin HCl 1,500 mg in 500 mls @ 250 mls/hr 02/09/25 09:00 02/10/25 10:46 Vancomycin 1,500 Mg/Ns 500 Ml IVPB 250 mls/hr Q12H [facility] Administration Insulin Aspart 2 - 5 units 02/10/25 16:30 Insulin Aspart (*Bkc) 100 Units/Ml SUB-Q ACHS [facility] Protocol Loratadine 10 mg 02/09/25 09:00 02/10/25 09:33 Loratadine 10 Mg Tablet PO 10 mg DAILY [facility] Administration Magnesium Oxide 400 mg 02/09/25 09:00 02/10/25 09:32 Magnesium Oxide 400 Mg Tablet PO 400 mg BID [facility] Administration Melatonin 5 mg 02/09/25 21:00 02/09/25 21:09 Melatonin 5 Mg Tablet PO 5 mg HS [facility] Administration Metoprolol Tartrate 50 mg 02/09/25 09:00 02/10/25 09:32 Metoprolol Tartrate 50 Mg Tab BY MOUTH 50 mg Q12HR [facility] Administration Morphine Sulfate 4 mg 02/09/25 17:03 Morphine Sulfate (*Crx) 4 Mg/Ml Inj IV PUSH Q4H PRN Pain Rated 7-10 Nicotine 1 patch 02/08/25 21:25 02/10/25 09:34 Nicotine (*Pbkc) 14 Mg Patch TRANSDERM 1 patch DAILY [facility] Administration Ondansetron HCl 4 mg 02/08/25 20:45 Ondansetron Inj 4 Mg/2 Ml Vial IV PUSH Q4H PRN Nausea Ondansetron HCl 4 mg 02/09/25 15:38 Ondansetron Inj 4 Mg/2 Ml Vial IV PUSH ONCE PRN Nausea Pantoprazole Sodium 40 mg 02/09/25 09:00 02/10/25 09:32 Pantoprazole 40 Mg Tablet BY MOUTH 40 mg DAILY [facility] Administration Paroxetine HCl 40 mg 02/09/25 09:00 02/10/25 09:32 Paroxetine 20 Mg Tablet PO 40 mg DAILY [facility] Administration Pravastatin Sodium 20 mg 02/09/25 21:00 02/09/25 21:09 Pravastatin Sodium 20 Mg Tablet PO 20 mg QHS [facility] Administration Vitamin D 50 mcg 02/09/25 09:00 02/10/25 09:33 Cholecalciferol (Vitamin D3) 25 Mcg (1,000 Units) Tablet PO 50 mcg DAILY [facility] Administration Radiology Results: ITS Impressions Foot X-Ray 02/08/25 17:23 IMPRESSION: 1. Significant erosive changes with pathological fracture of distal fifth metatarsal bone suggestive of osteomyelitis with pathologic fracture. Labs Labs: Laboratory Results - last 24 hr 02/09/25 02/10/25 02/10/25 17:02 01:13 05:56 WBC RBC Hgb Hct MCV MCH MCHC RDW Plt Count MPV Sodium Potassium Chloride Carbon Dioxide Anion Gap BUN Creatinine Estim Creat Clear Calc Estimated GFR Glucose POC Capillary Glucose 115 H 123 H 136 H Calcium Vancomycin Trough 02/10/25 02/10/25 07:42 11:49 WBC 10.3 H RBC 4.06 L Hgb 12.1 L Hct 37.0 L MCV 91.1 MCH 29.8 MCHC 32.7 RDW 14.0 Plt Count 307 MPV 8.9 Sodium 136 L Potassium 4.2 Chloride 105 Carbon Dioxide 26 Anion Gap 5 BUN 10 Creatinine 1.01 Estim Creat Clear Calc 86 Estimated GFR > 60 Glucose 117 H POC Capillary Glucose 119 H Calcium 9.0 Vancomycin Trough 17.3
[2025-02-10 16:00] VITALS: BP 123/62; PULSE 89; RESP 18; TEMP 37.2; O2SAT 96
[2025-02-10 20:34] VITALS: BP 145/79; PULSE 81; RESP 17; TEMP 36.6; O2SAT 94
[2025-02-10] MEDS: MELATONIN 5 MG TABLET PO (20:54)
[2025-02-10] MEDS: PRAVASTATIN SODIUM 20 MG TABLET PO (20:54)
[2025-02-10 23:20] VITALS: BP 126/72; PULSE 94; RESP 17; TEMP 36.4; O2SAT 94
[2025-02-11] MEDS: metroNIDAZOLE 500 MG/ISO 100ML 500 MG/100 ML BAG 100 MG IVPB ×3 (05:00→21:15)
[2025-02-11] MEDS: GABAPENTIN 300 MG CAPSULE PO ×3 (05:00→21:17)
[2025-02-11 05:10] VITALS: BP 126/72; PULSE 94; RESP 17; TEMP 36.4; O2SAT 92
[2025-02-11 05:43] LABS: Hematocrit 36.4 % (42.0-52.0); Hemoglobin 12.2 g/dL (14.0-18.0); Mean Corpuscular HGB Conc 33.5 g/dl (32-36); Mean Corpuscular Hemoglobin 30.1 pg (26-34); Mean Corpuscular Volume 89.9 fl (80-100); Platelet Count Result 331 k/mm3 (150-375); Red Blood Count 4.05 M/mm3 (4.6-6.20); White Blood Count 11.6 K/mm3 (4.5-10.0)
[2025-02-11 05:57] LABS: Anion Gap 7 mmol/L (4-12); Blood Urea Nitrogen 11 mg/dL (9-20); Calcium 9.2 mg/dL (8.4-10.2); Carbon Dioxide 24 mmol/L (22-30); Chloride 103 mmol/L (98-107); Estimated CRCL calculation 81 ml/min; Estimated Glomerular Filt Rate > 60; Glucose 125 mg/dL (65-110); Potassium 3.8 mmol/L (3.4-5.0); Sodium 134 mmol/L (137-145)
[2025-02-11] MEDS: VANCOMYCIN 1,500 MG/NS 500 ML 1,500 MG/500 ML BAG 250 MG IVPB (08:43)
[2025-02-11] MEDS: CEFEPIME 2 GM in SODIUM CHLORIDE 0.9% IV 50 ML 100 ML IVPB ×2 (08:43→20:33)
[2025-02-11] MEDS: NICOTINE (*PBKC) 14 MG PATCH 1 PATCH TRANSDERM (08:52)
[2025-02-11] MEDS: PANTOPRAZOLE 40 MG TABLET BY MOUTH (08:53)
[2025-02-11] MEDS: LORATADINE 10 MG TABLET PO (08:53)
[2025-02-11] MEDS: CHOLECALCIFEROL (VITAMIN D3) 25 MCG (1,000 UNITS) TABLET 50 MCG PO (08:53)
[2025-02-11] MEDS: clonazePAM (*CRX) 0.5 MG TABLET PO ×2 (08:53→20:30)
[2025-02-11] MEDS: CYANOCOBALAMIN 500 MCG TABLET PO (08:53)
[2025-02-11 08:54] VITALS: PULSE 79
[2025-02-11] MEDS: METOPROLOL TARTRATE 50 MG TAB BY MOUTH ×2 (08:54→20:30)
[2025-02-11] MEDS: APIXABAN 5 MG TABLET PO ×2 (08:54→20:30)
[2025-02-11] MEDS: buPROPion HCL SR (12 HR) 150 MG TAB PO (08:55)
[2025-02-11] MEDS: ASPIRIN 81 MG ENTERIC TABLET PO (08:55)
[2025-02-11] MEDS: MAGNESIUM OXIDE 400 MG TABLET PO ×2 (08:55→16:28)
--- NOTE | 2025-02-11 09:06 | P.PNIM_ITS ---
Progress Note: A&P Assessment and Plan (1) Osteomyelitis: Code(s): M86.9 - Osteomyelitis, unspecified Status: Acute Assessment and Plan: Significant erosive changes with pathological fracture of distal fifth me tatarsal bone suggestive of osteomyelitis with pathologic fracture.s/p incision and drainage of right foot abscess with transmetatarsal amputation of right 5th toe per Dr. Delgado on 02/09 -surgery has been consulted. -Eliquis and aspirin restarted -Continue Flagyl, cefepime and vancomycin. -blood cultures are pending wound cultures are pending. -pain control -PT/OT consult weight-bearing through heel of right foot (2) Type 2 DM with CKD stage 3 and hypertension: Code(s): E11.22 - Type 2 diabetes mellitus with diabetic chronic kidney disease; I12.9 - Hypertensive chronic kidney disease with stage 1 through stage 4 chronic kidney disease, or unspecified chronic kidney disease; N18.30 - Chronic kidney disease, stage 3 unspecified Status: Chronic Assessment and Plan: -accu checks -avoid hypoglycemia -Hgba1c 02/09/25 6.6% -SSI low dose with meals (3) Peripheral neuropathy: Code(s): G62.9 - Polyneuropathy, unspecified Status: Acute Assessment and Plan: -continue with gabapentin (4) COPD (chronic obstructive pulmonary disease): Code(s): J44.9 - Chronic obstructive pulmonary disease, unspecified Status: Acute Assessment and Plan: -continue with inhaler (5) CASI on CPAP: Code(s): G47.33 - Obstructive sleep apnea (adult) (pediatric); Z99.89 - Dependence on other enabling machines and devices Status: Chronic Assessment and Plan: -auto titrate CPAP/BiPAP home settings. (6) Tobacco abuse: Code(s): Z72.0 - Tobacco use Status: Chronic Assessment and Plan: -smoking cessation has been initiated. (7) Dyslipidemia: Code(s): E78.5 - Hyperlipidemia, unspecified Status: Acute Assessment and Plan: -continue with pravastatin (8) Hypertension: Code(s): I10 - Essential (primary) hypertension Status: Acute Assessment and Plan: -continue with metoprolol (9) Anxiety: Code(s): F41.9 - Anxiety disorder, unspecified Status: Acute Assessment and Plan: -continue with hydroxyzine, clonazepam, and paroxetine (10) Depression: Code(s): F32.A - Depression, unspecified Status: Acute Assessment and Plan: -continue with bupropion (11) Schizophrenia: Code(s): F20.9 - Schizophrenia, unspecified Status: Acute Assessment and Plan: -paliperidone is nonformulary. Requesting family bring in from home Time Spent With Patient Time with patient: Greater than 35 minutes Subjective Date/time seen: 02/11/25 09:06 Interval history: 69-year-old male patient with a history of diabetes with nonhealing foot ulcer found to have osteomyelitis of the 5th metatarsal. Patient had surgical amputation yesterday of his right 5th toe, weight-bearing only to the heel of the right foot. Leukocytosis increased on a.m. labs with a could be due to recent surgery. Eliquis restarted this morning, continuing IV antibiotics Patient has no complaints Review of Systems Review of Systems: 12 systems were reviewed and are negativ e except for as per HPI. Exam Narrative: General: well appearing, appears stated age. HEENT: normocephalic, atraumatic. Mucous membranes moist. EOMI, PERRLA Respiratory: clear bilaterally. No rales/rhonic/wheezes. Cardiovascular: Regular rate and rhythm, normal S1-S2. No murmurs, rubs, or clicks. Abdomen: Soft, round, no pulsatile masses, nondistended and nontender. No rebound, no guarding. Bowel sounds present to all four quadrants. Extremities: No cyanosis, clubbing, or edema present. Neuro: Alert and orientated x 4. PERRLA. Skin: Warm, dry, and intact, without rash, erythema, or lesion. Right foot with surgical dressing in place. and boot Psych: pleasant, cooperative, normal speech, normal affect, no hallucinations, no dysarthia Objective Data Vital Signs Vital Signs: Vital Signs - 24 hr 02/10/25 09:32 02/10/25 16:00 02/10/25 20:34 Temperature 99.0 F 97.9 F Pulse Rate 74 89 81 Respiratory Rate 18 17 Blood Pressure 123/62 145/79 H Pulse Oximetry 96 94 02/10/25 23:20 02/11/25 05:10 02/11/25 08:54 Temperature 97.5 F L 97.5 F L Pulse Rate 94 94 79 Respiratory Rate 17 17 Blood Pressure 126/72 126/72 Pulse Oximetry 94 92 Intake/Output Intake/Output: Intake & Output 02/08/25 02/09/25 02/10/25 02/11/25 23:59 23:59 23:59 23:59 Intake Total 1050 1000 3020 600 Balance 1050 1000 3020 600 Meds/Results Medications: Active Medications Generic Name Dose Route Start Last Admin Trade Name Freq PRN Reason Stop Dose Admin Acetaminophen 650 mg 02/08/25 20:45 Acetaminophen 325 Mg Tablet PO Q4H PRN Mild Pain (1-3) or Fever Acetaminophen 650 mg 02/09/25 12:22 Acetaminophen 325 Mg Tablet PO Q4H PRN Headache Hydrocodone Bitart/Acetaminophen 1 tab 02/09/25 12:22 Hydrocodone/Acetaminophen (*Crx) 5-325 Mg Tablet PO Q4H PRN Pain Rated 4-6 Hydrocodone Bitart/Acetaminophen 1 tab 02/09/25 12:22 Hydrocodone/Acetaminophen (*Crx) 7.5-325 Mg Tablet PO Q4H PRN Pain Rated 7-10 Albuterol 2 puff 02/09/25 04:10 Albuterol Sulfate (*Sp) Aerosol 1 Puff INHALATION Q6HRT PRN SHORTNESS OF BREATH/WHEEZING Apixaban 5 mg 02/11/25 09:00 02/11/25 08:54 Apixaban 5 Mg Tablet PO 5 mg Q12HR LAURA Administration Aspirin 81 mg 02/11/25 09:00 02/11/25 08:55 Aspirin 81 Mg Enteric Tablet PO 81 mg QAM LAURA Administration Bupropion HCl 150 mg 02/09/25 09:00 02/11/25 08:55 Bupropion Hcl Sr (12 Hr) 150 Mg Tab PO 150 mg DAILY LAURA Administration Clonazepam 0.5 mg 02/09/25 04:06 02/11/25 08:53 Clonazepam (*Crx) 0.5 Mg Tablet PO 0.5 mg BID PRN Administration Anxiety Cyanocobalamin 500 mcg 02/09/25 09:00 02/11/25 08:53 Cyanocobalamin 500 Mcg Tablet PO 03/11/25 08:59 500 mcg DAILY LAURA Administration Dextrose 12.5 gm 02/09/25 05:45 Dextrose 50% 25 Gm/50 Ml Syringe IV PUSH PRN PRN Hypoglycemia Protocol Fentanyl Citrate 25 mcg 02/09/25 15:38 Fentanyl Citrate Inj (*Crx) 100 Mcg/2 Ml Vial IV PUSH Q2M PRN Pain Gabapentin 300 mg 02/09/25 06:00 02/11/25 05:00 Gabapentin 300 Mg Capsule PO 300 mg Q8HR LAURA Administration Glucagon 1 mg 02/09/25 04:10 Glucagon For Inj 1 Mg Vial IM PRN PRN Hypoglycemia Protocol Glucose 15 gm 02/09/25 04:10 Glucose Oral Gel 15 Gm Of Glucse In 37.5 Gm Tube PO PRN PRN Hypoglycemia Protocol Hydroxyzine HCl 25 mg 02/09/25 04:06 02/11/25 08:55 Hydroxyzine Hcl 25 Mg Tablet PO 25 mg BID PRN Administration Anxiety Dextrose 1,000 mls @ 100 mls/hr 02/09/25 05:45 Dextrose 5% 1,000 Ml IVPB PRN PRN Hypoglycemia Protocol Cefepime HCl 2 gm/ Sodium 50 mls @ 100 mls/hr 02/09/25 09:00 02/11/25 08:43 Chloride IVPB 100 mls/hr Q12H LAURA Administration Metronidazole 500 mg in 100 mls @ 100 mls/hr 02/09/25 06:00 02/11/25 05:00 Flagyl 500 Mg/Iso Soln 100 Ml IVPB 100 mls/hr Q8HR LAURA Administration Vancomycin HCl 1,500 mg in 500 mls @ 250 mls/hr 02/09/25 09:00 02/11/25 08:43 Vancomycin 1,500 Mg/Ns 500 Ml IVPB 250 mls/hr Q12H LAURA Administration Insulin Aspart 2 - 5 units 02/11/25 08:00 02/11/25 08:56 Insulin Aspart (*Bkc) 100 Units/Ml SUB-Q Not Given TIDWM LAURA Protocol Loratadine 10 mg 02/09/25 09:00 02/11/25 08:53 Loratadine 10 Mg Tablet PO 10 mg DAILY LAURA Administration Magnesium Oxide 400 mg 02/09/25 09:00 02/11/25 08:55 Magnesium Oxide 400 Mg Tablet PO 400 mg BID LAURA Administration Melatonin 5 mg 02/09/25 21:00 02/10/25 20:54 Melatonin 5 Mg Tablet PO 5 mg HS LAURA Administration Metoprolol Tartrate 50 mg 02/09/25 09:00 02/11/25 08:54 Metoprolol Tartrate 50 Mg Tab BY MOUTH 50 mg Q12HR LAURA Administration Morphine Sulfate 4 mg 02/09/25 17:03 Morphine Sulfate (*Crx) 4 Mg/Ml Inj IV PUSH Q4H PRN Pain Rated 7-10 Nicotine 1 patch 02/08/25 21:25 02/11/25 08:52 Nicotine (*Pbkc) 14 Mg Patch TRANSDERM 1 patch DAILY LAURA Administration Ondansetron HCl 4 mg 02/08/25 20:45 Ondansetron Inj 4 Mg/2 Ml Vial IV PUSH Q4H PRN Nausea Ondansetron HCl 4 mg 02/09/25 15:38 Ondansetron Inj 4 Mg/2 Ml Vial IV PUSH ONCE PRN Nausea Pantoprazole Sodium 40 mg 02/09/25 09:00 02/11/25 08:53 Pantoprazole 40 Mg Tablet BY MOUTH 40 mg DAILY LAURA Administration Paroxetine HCl 40 mg 02/09/25 09:00 02/11/25 08:55 Paroxetine 20 Mg Tablet PO 40 mg DAILY LAURA Administration Pravastatin Sodium 20 mg 02/09/25 21:00 02/10/25 20:54 Pravastatin Sodium 20 Mg Tablet PO 20 mg QHS LAURA Administration Vitamin D 50 mcg 02/09/25 09:00 02/11/25 08:53 Cholecalciferol (Vitamin D3) 25 Mcg (1,000 Units) Tablet PO 50 mcg DAILY LAURA Administration Radiology Results: ITS Impressions Foot X-Ray 02/08/25 17:23 IMPRESSION: 1. Significant erosive changes with pathological fracture of distal fifth metatarsal bone suggestive of osteomyelitis with pathologic fracture. Labs Labs: Laboratory Results - last 24 hr 02/10/25 02/10/25 02/10/25 11:49 16:33 19:55 WBC RBC Hgb Hct MCV MCH MCHC RDW Plt Count MPV Sodium Potassium Chloride Carbon Dioxide Anion Gap BUN Creatinine Estim Creat Clear Calc Estimated GFR Glucose POC Capillary Glucose 119 H 116 H 165 H Calcium 02/11/25 02/11/25 05:19 07:24 WBC 11.6 H RBC 4.05 L Hgb 12.2 L Hct 36.4 L MCV 89.9 MCH 30.1 MCHC 33.5 RDW 13.6 Plt Count 331 MPV 9.3 Sodium 134 L Potassium 3.8 Chloride 103 Carbon Dioxide 24 Anion Gap 7 BUN 11 Creatinine 1.07 Estim Creat Clear Calc 81 Estimated GFR > 60 Glucose 125 H POC Capillary Glucose 152 H Calcium 9.2 Quality VTE Prophylaxis VTE prophylaxis: pharmacologic ordered (When able to start the Eliquis again.)
--- NOTE | 2025-02-11 12:07 | WPDPN ---
Progress Note: A&P Assessment and Plan (1) Diabetic foot infection: Code(s): E11.628 - Type 2 diabetes mellitus with other skin complications; L08.9 - Local infection of the skin and subcutaneous tissue, unspecified Status: Acute Assessment and Plan: Postop day 2 after incision and drainage of right lateral foot abscess and amputation of right 5th toe and metatarsal head. Pathology still pending on the bone margins. Cultures show a white blood cells and Gram-negative rods. Final culture results and sensitivities pending. Wound is being packed with normal saline moist to dry gauze daily. Wound looks to be clean without any more necrotic tissue. No worsening cellulitis. Will get infectious disease consult help narrow the antibiotic coverage. We will consult Wound Care nurses to apply wound VAC tomorrow. (2) Osteomyelitis: Code(s): M86.9 - Osteomyelitis, unspecified Status: Acute Subjective Date/time seen: 02/11/25 12:07 Interval history: Patient clinically stable. No acute changes. No fever. [place] [address] [place] [address] today. He remains on cefepime, Flagyl, and vancomycin IV for antibiotic coverage. Pathology results on the bone from the amputation of the right 5th toe and metatarsal is still pending. Blood cultures are pending. Wound culture and Gram stain showed many white blood cells and grabbed negative bacilli. Speciation is still pending. Exam Extrem: Other: Amputation wound from the right 5th toe and metatarsal head is clean. No necrotic tissue at the base. Minimal serous drainage. No active bleeding. Right foot is warm and remaining toes were all viable and is able to bend all of his toes. Objective Data Vital Signs Vital Signs: Vital Signs - 24 hr 02/10/25 16:00 02/10/25 20:34 02/10/25 23:20 Temperature 37.2 C 36.6 C 36.4 C L Pulse Rate 89 81 94 Respiratory Rate 18 17 17 Blood Pressure 123/62 145/79 H 126/72 Pulse Oximetry 96 94 94 02/11/25 05:10 02/11/25 08:54 Temperature 36.4 C L Pulse Rate 94 79 Respiratory Rate 17 Blood Pressure 126/72 Pulse Oximetry 92 Intake/Output Intake/Output: Intake & Output 02/08/25 02/09/25 02/10/25 02/11/25 23:59 23:59 23:59 23:59 Intake Total 1050 1000 3020 600 Balance 1050 1000 3020 600 Meds/Results Medications: Active Medications Generic Name Dose Route Start Last Admin Trade Name Freq PRN Reason Stop Dose Admin Acetaminophen 650 mg 02/08/25 20:45 Acetaminophen 325 Mg Tablet PO Q4H PRN Mild Pain (1-3) or Fever Hydrocodone Bitart/Acetaminophen 1 tab 02/09/25 12:22 Hydrocodone/Acetaminophen (*Crx) 5-325 Mg Tablet PO Q4H PRN Pain Rated 4-6 Hydrocodone Bitart/Acetaminophen 1 tab 02/09/25 12:22 Hydrocodone/Acetaminophen (*Crx) 7.5-325 Mg Tablet PO Q4H PRN Pain Rated 7-10 Albuterol 2 puff 02/09/25 04:10 Albuterol Sulfate (*Sp) Aerosol 1 Puff INHALATION Q6HRT PRN SHORTNESS OF BREATH/WHEEZING Apixaban 5 mg 02/11/25 09:00 02/11/25 08:54 Apixaban 5 Mg Tablet PO 5 mg Q12HR LAURA Administration Aspirin 81 mg 02/11/25 09:00 02/11/25 08:55 Aspirin 81 Mg Enteric Tablet PO 81 mg QAM LAURA Administration Bupropion HCl 150 mg 02/09/25 09:00 02/11/25 08:55 Bupropion Hcl Sr (12 Hr) 150 Mg Tab PO 150 mg DAILY LAURA Administration Clonazepam 0.5 mg 02/09/25 04:06 02/11/25 08:53 Clonazepam (*Crx) 0.5 Mg Tablet PO 0.5 mg BID PRN Administration Anxiety Cyanocobalamin 500 mcg 02/09/25 09:00 02/11/25 08:53 Cyanocobalamin 500 Mcg Tablet PO 03/11/25 08:59 500 mcg DAILY LAURA Administration Dextrose 12.5 gm 02/09/25 05:45 Dextrose 50% 25 Gm/50 Ml Syringe IV PUSH PRN PRN Hypoglycemia Protocol Fentanyl Citrate 25 mcg 02/09/25 15:38 Fentanyl Citrate Inj (*Crx) 100 Mcg/2 Ml Vial IV PUSH Q2M PRN Pain Gabapentin 300 mg 02/09/25 06:00 02/11/25 05:00 Gabapentin 300 Mg Capsule PO 300 mg Q8HR LAURA Administration Glucagon 1 mg 02/09/25 04:10 Glucagon For Inj 1 Mg Vial IM PRN PRN Hypoglycemia Protocol Glucose 15 gm 02/09/25 04:10 Glucose Oral Gel 15 Gm Of Glucse In 37.5 Gm Tube PO PRN PRN Hypoglycemia Protocol Hydroxyzine HCl 25 mg 02/09/25 04:06 02/11/25 08:55 Hydroxyzine Hcl 25 Mg Tablet PO 25 mg BID PRN Administration Anxiety Dextrose 1,000 mls @ 100 mls/hr 02/09/25 05:45 Dextrose 5% 1,000 Ml IVPB PRN PRN Hypoglycemia Protocol Cefepime HCl 2 gm/ Sodium 50 mls @ 100 mls/hr 02/09/25 09:00 02/11/25 08:43 Chloride IVPB 100 mls/hr Q12H LAURA Administration Metronidazole 500 mg in 100 mls @ 100 mls/hr 02/09/25 06:00 02/11/25 05:00 Flagyl 500 Mg/Iso Soln 100 Ml IVPB 100 mls/hr Q8HR LAURA Administration Vancomycin HCl 1,500 mg in 500 mls @ 250 mls/hr 02/09/25 09:00 02/11/25 08:43 Vancomycin 1,500 Mg/Ns 500 Ml IVPB 250 mls/hr Q12H LAURA Administration Insulin Aspart 2 - 5 units 02/11/25 08:00 02/11/25 08:56 Insulin Aspart (*Bkc) 100 Units/Ml SUB-Q Not Given TIDWM LAURA Protocol Loratadine 10 mg 02/09/25 09:00 02/11/25 08:53 Loratadine 10 Mg Tablet PO 10 mg DAILY LAURA Administration Magnesium Oxide 400 mg 02/09/25 09:00 02/11/25 08:55 Magnesium Oxide 400 Mg Tablet PO 400 mg BID LAURA Administration Melatonin 5 mg 02/09/25 21:00 02/10/25 20:54 Melatonin 5 Mg Tablet PO 5 mg HS LAURA Administration Metoprolol Tartrate 50 mg 02/09/25 09:00 02/11/25 08:54 Metoprolol Tartrate 50 Mg Tab BY MOUTH 50 mg Q12HR LAURA Administration Morphine Sulfate 4 mg 02/09/25 17:03 Morphine Sulfate (*Crx) 4 Mg/Ml Inj IV PUSH Q4H PRN Pain Rated 7-10 Nicotine 1 patch 02/08/25 21:25 02/11/25 08:52 Nicotine (*Pbkc) 14 Mg Patch TRANSDERM 1 patch DAILY LAURA Administration Ondansetron HCl 4 mg 02/08/25 20:45 Ondansetron Inj 4 Mg/2 Ml Vial IV PUSH Q4H PRN Nausea Ondansetron HCl 4 mg 02/09/25 15:38 Ondansetron Inj 4 Mg/2 Ml Vial IV PUSH ONCE PRN Nausea Pantoprazole Sodium 40 mg 02/09/25 09:00 02/11/25 08:53 Pantoprazole 40 Mg Tablet BY MOUTH 40 mg DAILY LAURA Administration Paroxetine HCl 40 mg 02/09/25 09:00 02/11/25 08:55 Paroxetine 20 Mg Tablet PO 40 mg DAILY LAURA Administration Pravastatin Sodium 20 mg 02/09/25 21:00 02/10/25 20:54 Pravastatin Sodium 20 Mg Tablet PO 20 mg QHS LAURA Administration Vitamin D 50 mcg 02/09/25 09:00 02/11/25 08:53 Cholecalciferol (Vitamin D3) 25 Mcg (1,000 Units) Tablet PO 50 mcg DAILY LAURA Administration Radiology Results: ITS Impressions Foot X-Ray 02/08/25 17:23 IMPRESSION: 1. Significant erosive changes with pathological fracture of distal fifth metatarsal bone suggestive of osteomyelitis with pathologic fracture. Labs Labs: Laboratory Results - last 24 hr 02/10/25 02/10/25 02/11/25 16:33 19:55 05:19 WBC 11.6 H RBC 4.05 L Hgb 12.2 L Hct 36.4 L MCV 89.9 MCH 30.1 MCHC 33.5 RDW 13.6 Plt Count 331 MPV 9.3 Sodium 134 L Potassium 3.8 Chloride 103 Carbon Dioxide 24 Anion Gap 7 BUN 11 Creatinine 1.07 Estim Creat Clear Calc 81 Estimated GFR > 60 Glucose 125 H POC Capillary Glucose 116 H 165 H Calcium 9.2 02/11/25 02/11/25 07:24 11:19 WBC RBC Hgb Hct MCV MCH MCHC RDW Plt Count MPV Sodium Potassium Chloride Carbon Dioxide Anion Gap BUN Creatinine Estim Creat Clear Calc Estimated GFR Glucose POC Capillary Glucose 152 H 149 H Calcium
[2025-02-11 13:53] VITALS: BP 137/80; PULSE 98; RESP 18; TEMP 35.7; O2SAT 94
[2025-02-11] MEDS: PRAVASTATIN SODIUM 20 MG TABLET PO (20:29)
[2025-02-11] MEDS: HYDROcodone/acetaminophen (*CRX) 5-325 MG TABLET 1 TAB PO (20:31)
[2025-02-11] MEDS: MELATONIN 5 MG TABLET PO (20:42)
[2025-02-11] MEDS: VANCOMYCIN 1,500 MG/NS 500 ML 1,500 MG/500 ML BAG 100 MG IVPB (21:18)
[2025-02-11 21:24] VITALS: BP 139/86; PULSE 70; TEMP 36.4; O2SAT 99
[2025-02-12] MEDS: metroNIDAZOLE 500 MG/ISO 100ML 500 MG/100 ML BAG 100 MG IVPB ×2 (05:35→13:25)
[2025-02-12] MEDS: GABAPENTIN 300 MG CAPSULE PO ×3 (05:36→21:14)
[2025-02-12 06:04] VITALS: BP 121/89; PULSE 82; RESP 17; TEMP 36.7; O2SAT 95
[2025-02-12 06:11] LABS: Hematocrit 38.3 % (42.0-52.0); Hemoglobin 12.7 g/dL (14.0-18.0); Mean Corpuscular HGB Conc 33.2 g/dl (32-36); Mean Corpuscular Hemoglobin 29.7 pg (26-34); Mean Corpuscular Volume 89.5 fl (80-100); Platelet Count Result 359 k/mm3 (150-375); Red Blood Count 4.28 M/mm3 (4.6-6.20); White Blood Count 12.0 K/mm3 (4.5-10.0)
[2025-02-12 06:41] LABS: Anion Gap 9 mmol/L (4-12); Blood Urea Nitrogen 11 mg/dL (9-20); Calcium 9.3 mg/dL (8.4-10.2); Carbon Dioxide 21 mmol/L (22-30); Chloride 105 mmol/L (98-107); Estimated CRCL calculation 95 ml/min; Estimated Glomerular Filt Rate > 60; Glucose 131 mg/dL (65-110); Potassium 4.0 mmol/L (3.4-5.0); Sodium 135 mmol/L (137-145)
--- NOTE | 2025-02-12 07:42 | PHAR ---
Drug Name:Paliperidone Ingredients:??Paliperidone?-- 3 MG Related Documents:? DRUGDEX Evaluations -?Paliperidone Color:?WhiteShape:?CircleImprint:??[id number] Code Description:?Imprinted LP2 on one side and plain on the other sideForm:?Oral Tablet, Extended Release
[2025-02-12] MEDS: NICOTINE (*PBKC) 14 MG PATCH 1 PATCH TRANSDERM (08:26)
[2025-02-12 08:28] VITALS: PULSE 75
[2025-02-12] MEDS: MAGNESIUM OXIDE 400 MG TABLET PO ×2 (08:28→16:36)
[2025-02-12] MEDS: METOPROLOL TARTRATE 50 MG TAB BY MOUTH ×2 (08:28→20:17)
[2025-02-12] MEDS: CYANOCOBALAMIN 500 MCG TABLET PO (08:28)
[2025-02-12] MEDS: CHOLECALCIFEROL (VITAMIN D3) 25 MCG (1,000 UNITS) TABLET 50 MCG PO (08:28)
[2025-02-12] MEDS: buPROPion HCL SR (12 HR) 150 MG TAB PO (08:29)
[2025-02-12] MEDS: LORATADINE 10 MG TABLET PO (08:29)
[2025-02-12] MEDS: PANTOPRAZOLE 40 MG TABLET BY MOUTH (08:29)
[2025-02-12] MEDS: ASPIRIN 81 MG ENTERIC TABLET PO (08:29)
[2025-02-12] MEDS: APIXABAN 5 MG TABLET PO ×2 (08:29→20:16)
[2025-02-12] MEDS: CEFEPIME 2 GM in SODIUM CHLORIDE 0.9% IV 50 ML 100 ML IVPB ×2 (08:35→20:16)
[2025-02-12] MEDS: VANCOMYCIN 1,500 MG/NS 500 ML 1,500 MG/500 ML BAG 100 MG IVPB (08:36)
--- NOTE | 2025-02-12 09:02 | P.PNIM_ITS ---
Progress Note: A&P Assessment and Plan (1) Osteomyelitis: Code(s): M86.9 - Osteomyelitis, unspecified Status: Acute Assessment and Plan: Significant erosive changes with pathological fracture of distal fifth me tatarsal bone suggestive of osteomyelitis with pathologic fracture.s/p incision and drainage of right foot abscess with transmetatarsal amputation of right 5th toe per Dr. Delgado on 02/09 -surgery has been consulted. -Eliquis and aspirin restarted -Continue Flagyl, cefepime and vancomycin. -blood cultures are pending Surgical pathology are pending. Wound culture on 02/09 resulted as Pseudomonas which is likely contaminant as the wound had no drainage at the time Plan for wound VAC today ID consulted for antibiotic guidance -PT/OT consult weight-bearing through heel of right foot (2) Type 2 DM with CKD stage 3 and hypertension: Code(s): E11.22 - Type 2 diabetes mellitus with diabetic chronic kidney disease; I12.9 - Hypertensive chronic kidney disease with stage 1 through stage 4 chronic kidney disease, or unspecified chronic kidney disease; N18.30 - Chronic kidney disease, stage 3 unspecified Status: Chronic Assessment and Plan: -accu checks -avoid hypoglycemia -Hgba1c 02/09/25 6.6% -SSI low dose with meals (3) Peripheral neuropathy: Code(s): G62.9 - Polyneuropathy, unspecified Status: Acute Assessment and Plan: -continue with gabapentin (4) COPD (chronic obstructive pulmonary disease): Code(s): J44.9 - Chronic obstructive pulmonary disease, unspecified Status: Acute Assessment and Plan: -continue with inhaler (5) CASI on CPAP: Code(s): G47.33 - Obstructive sleep apnea (adult) (pediatric); Z99.89 - Dependence on other enabling machines and devices Status: Chronic Assessment and Plan: -auto titrate CPAP/BiPAP home settings. (6) Tobacco abuse: Code(s): Z72.0 - Tobacco use Status: Chronic Assessment and Plan: -smoking cessation has been initiated. (7) Dyslipidemia: Code(s): E78.5 - Hyperlipidemia, unspecified Status: Acute Assessment and Plan: -continue with pravastatin (8) Hypertension: Code(s): I10 - Essential (primary) hypertension Status: Acute Assessment and Plan: -continue with metoprolol (9) Anxiety: Code(s): F41.9 - Anxiety disorder, unspecified Status: Acute Assessment and Plan: -continue with hydroxyzine, clonazepam, and paroxetine (10) Depression: Code(s): F32.A - Depression, unspecified Status: Acute Assessment and Plan: -continue with bupropion (11) Schizophrenia: Code(s): F20.9 - Schizophrenia, unspecified Status: Acute Assessment and Plan: -paliperidone is nonformulary. Requesting family bring in from home Subjective Date/time seen: 02/12/25 09:02 Interval history: 69-year-old male patient with a history of diabetes with nonhealing foot ulcer found to have osteomyelitis of the 5th metatarsal. Patient had surgical amputation yesterday of his right 5th toe, weight-bearing only to the heel of the right foot. Leukocytosis increased on a.m. labs with a could be due to recent surgery, continuing IV antibiotics Patient has no complaints ID consulted for antibiotics, plan for wound VAC today Review of Systems Review of Systems: 12 systems were reviewed and are negativ e except for as per HPI. Exam Narrative: General: well appearing, appears stated age. HEENT: normocephalic, atraumatic. Mucous membranes moist. EOMI, PERRLA Respiratory: clear bilaterally. No rales/rhonic/wheezes. Cardiovascular: Regular rate and rhythm, normal S1-S2. No murmurs, rubs, or clicks. Abdomen: Soft, round, no pulsatile masses, nondistended and nontender. No rebound, no guarding. Bowel sounds present to all four quadrants. Extremities: No cyanosis, clubbing, or edema present. Neuro: Alert and orientated x 4. PERRLA. Skin: Warm, dry, and intact, without rash, erythema, or lesion. Right foot with surgical dressing in place. and boot Psych: pleasant, cooperative, normal speech, normal affect, no hallucinations, no dysarthia Objective Data Vital Signs Vital Signs: Vital Signs - 24 hr 02/11/25 13:53 02/11/25 21:24 02/12/25 06:04 Temperature 96.3 F L 97.6 F 98.1 F Pulse Rate 98 70 82 Respiratory Rate 18 17 Blood Pressure 137/80 139/86 121/89 Pulse Oximetry 94 99 95 02/12/25 08:28 Temperature Pulse Rate 75 Respiratory Rate Blood Pressure Pulse Oximetry Intake/Output Intake/Output: Intake & Output 02/09/25 02/10/25 02/11/25 02/12/25 23:59 23:59 23:59 23:59 Intake Total 1000 3020 1975 Balance 1000 3020 1975 Meds/Results Medications: Active Medications Generic Name Dose Route Start Last Admin Trade Name Freq PRN Reason Stop Dose Admin Acetaminophen 650 mg 02/08/25 20:45 Acetaminophen 325 Mg Tablet PO Q4H PRN Mild Pain (1-3) or Fever Hydrocodone Bitart/Acetaminophen 1 tab 02/09/25 12:22 02/11/25 20:31 Hydrocodone/Acetaminophen (*Crx) 5-325 Mg Tablet PO 1 tab Q4H PRN Administration Pain Rated 4-6 Hydrocodone Bitart/Acetaminophen 1 tab 02/09/25 12:22 Hydrocodone/Acetaminophen (*Crx) 7.5-325 Mg Tablet PO Q4H PRN Pain Rated 7-10 Albuterol 2 puff 02/09/25 04:10 Albuterol Sulfate (*Sp) Aerosol 1 Puff INHALATION Q6HRT PRN SHORTNESS OF BREATH/WHEEZING Apixaban 5 mg 02/11/25 09:00 02/12/25 08:29 Apixaban 5 Mg Tablet PO 5 mg Q12HR LAURA Administration Aspirin 81 mg 02/11/25 09:00 02/12/25 08:29 Aspirin 81 Mg Enteric Tablet PO 81 mg QAM LAURA Administration Bupropion HCl 150 mg 02/09/25 09:00 02/12/25 08:29 Bupropion Hcl Sr (12 Hr) 150 Mg Tab PO 150 mg DAILY LAURA Administration Clonazepam 0.5 mg 02/09/25 04:06 02/11/25 20:30 Clonazepam (*Crx) 0.5 Mg Tablet PO 0.5 mg BID PRN Administration Anxiety Cyanocobalamin 500 mcg 02/09/25 09:00 02/12/25 08:28 Cyanocobalamin 500 Mcg Tablet PO 03/11/25 08:59 500 mcg DAILY LAURA Administration Dextrose 12.5 gm 02/09/25 05:45 Dextrose 50% 25 Gm/50 Ml Syringe IV PUSH PRN PRN Hypoglycemia Protocol Fentanyl Citrate 25 mcg 02/09/25 15:38 Fentanyl Citrate Inj (*Crx) 100 Mcg/2 Ml Vial IV PUSH Q2M PRN Pain Gabapentin 300 mg 02/09/25 06:00 02/12/25 05:36 Gabapentin 300 Mg Capsule PO 300 mg Q8HR LAURA Administration Glucagon 1 mg 02/09/25 04:10 Glucagon For Inj 1 Mg Vial IM PRN PRN Hypoglycemia Protocol Glucose 15 gm 02/09/25 04:10 Glucose Oral Gel 15 Gm Of Glucse In 37.5 Gm Tube PO PRN PRN Hypoglycemia Protocol Hydroxyzine HCl 25 mg 02/09/25 04:06 02/11/25 08:55 Hydroxyzine Hcl 25 Mg Tablet PO 25 mg BID PRN Administration Anxiety Dextrose 1,000 mls @ 100 mls/hr 02/09/25 05:45 Dextrose 5% 1,000 Ml IVPB PRN PRN Hypoglycemia Protocol Cefepime HCl 2 gm/ Sodium 50 mls @ 100 mls/hr 02/09/25 09:00 02/12/25 08:35 Chloride IVPB 100 mls/hr Q12H LAURA Administration Metronidazole 500 mg in 100 mls @ 100 mls/hr 02/09/25 06:00 02/12/25 05:35 Flagyl 500 Mg/Iso Soln 100 Ml IVPB 100 mls/hr Q8HR LAURA Administration Vancomycin HCl 1,500 mg in 500 mls @ 250 mls/hr 02/09/25 09:00 02/12/25 08:36 Vancomycin 1,500 Mg/Ns 500 Ml IVPB 100 mls/hr Q12H LAURA Administration Insulin Aspart 2 - 5 units 02/11/25 08:00 02/12/25 07:31 Insulin Aspart (*Bkc) 100 Units/Ml SUB-Q Not Given TID[facility] Protocol Loratadine 10 mg 02/09/25 09:00 02/12/25 08:29 Loratadine 10 Mg Tablet PO 10 mg DAILY LAURA Administration Magnesium Oxide 400 mg 02/09/25 09:00 02/12/25 08:28 Magnesium Oxide 400 Mg Tablet PO 400 mg BID LAURA Administration Melatonin 5 mg 02/09/25 21:00 02/11/25 20:42 Melatonin 5 Mg Tablet PO 5 mg HS LAURA Administration Metoprolol Tartrate 50 mg 02/09/25 09:00 02/12/25 08:28 Metoprolol Tartrate 50 Mg Tab BY MOUTH 50 mg Q12HR LAURA Administration Morphine Sulfate 4 mg 02/09/25 17:03 Morphine Sulfate (*Crx) 4 Mg/Ml Inj IV PUSH Q4H PRN Pain Rated 7-10 Nicotine 1 patch 02/08/25 21:25 02/12/25 08:26 Nicotine (*Pbkc) 14 Mg Patch TRANSDERM 1 patch DAILY LAURA Administration (Paliperidone 3 Mg 1 each 02/12/25 21:00 Oral Tablet, PO 03/14/25 20:59 Extended Release 24 HS LAURA Hr) Ondansetron HCl 4 mg 02/08/25 20:45 Ondansetron Inj 4 Mg/2 Ml Vial IV PUSH Q4H PRN Nausea Ondansetron HCl 4 mg 02/09/25 15:38 Ondansetron Inj 4 Mg/2 Ml Vial IV PUSH ONCE PRN Nausea Pantoprazole Sodium 40 mg 02/09/25 09:00 02/12/25 08:29 Pantoprazole 40 Mg Tablet BY MOUTH 40 mg DAILY LAURA Administration Paroxetine HCl 40 mg 02/09/25 09:00 02/12/25 08:29 Paroxetine 20 Mg Tablet PO 40 mg DAILY LAURA Administration Pravastatin Sodium 20 mg 02/09/25 21:00 02/11/25 20:29 Pravastatin Sodium 20 Mg Tablet PO 20 mg QHS LAURA Administration Vitamin D 50 mcg 02/09/25 09:00 02/12/25 08:28 Cholecalciferol (Vitamin D3) 25 Mcg (1,000 Units) Tablet PO 50 mcg DAILY LAURA Administration Radiology Results: ITS Impressions Foot X-Ray 02/08/25 17:23 IMPRESSION: 1. Significant erosive changes with pathological fracture of distal fifth metatarsal bone suggestive of osteomyelitis with pathologic fracture. Labs Labs: Laboratory Results - last 24 hr 02/11/25 02/11/25 02/11/25 11:19 16:16 20:02 WBC RBC Hgb Hct MCV MCH MCHC RDW Plt Count MPV Sodium Potassium Chloride Carbon Dioxide Anion Gap BUN Creatinine Estim Creat Clear Calc Estimated GFR Glucose POC Capillary Glucose 149 H 145 H 155 H Calcium 02/12/25 02/12/25 05:42 07:22 WBC 12.0 H RBC 4.28 L Hgb 12.7 L Hct 38.3 L MCV 89.5 MCH 29.7 MCHC 33.2 RDW 13.7 Plt Count 359 MPV 9.4 Sodium 135 L Potassium 4.0 Chloride 105 Carbon Dioxide 21 L Anion Gap 9 BUN 11 Creatinine 0.91 Estim Creat Clear Calc 95 Estimated GFR > 60 Glucose 131 H POC Capillary Glucose 141 H Calcium 9.3 Quality VTE Prophylaxis VTE prophylaxis: pharmacologic ordered (When able to start the Eliquis again.)
[2025-02-12 12:00] VITALS: BMI 39.6
[2025-02-12] MEDS: clonazePAM (*CRX) 0.5 MG TABLET PO ×2 (13:28→20:16)
--- NOTE | 2025-02-12 13:54 | PM.PNGS ---
Progress Note: A&P Assessment and Plan (1) Diabetic foot infection: Code(s): E11.628 - Type 2 diabetes mellitus with other skin complications; L08.9 - Local infection of the skin and subcutaneous tissue, unspecified Status: Acute Assessment and Plan: POD3 s/p I&D of R lateral foot abscess and amputation of R 5th toe and metatarsal head. Patient was seen and examined with wound care nurse, Aleyda. She is going to apply wound vac this afternoon. Surgical specimen pathology still pending. Wound culture grew Enterococcus faecalis and Pseudomonas aeruginosa. Susceptible to patient's current antibiotic regimen. WBC slowly increasing, now at 12,000. ID was consulted. Appreciate their recommendations. (2) Osteomyelitis: Code(s): M86.9 - Osteomyelitis, unspecified Status: Acute Plan Discussed patient's case and plan of care with Dr. Delgado. Subjective Subjective Date/Time Seen: 02/12/25 13:54 Post Op day: 3 (Incision and drainage of right foot abscess with transmetatarsal amputation of right 5th toe) Patient reports: no new complaints, feels better and afebrile Interval history: No acute events overnight. WBC slightly elevated at 12.0. Wound cultures grew Enterococcus faecalis and Pseudomonas aeruginosa. Exam Extrem: Other: Amputation wound from the right 5th toe and metatarsal head is clean. Wound bed appears healthy with no necrotic tissue or purulence. Minimal serous drainage. No active bleeding. Right foot is warm. Mobility of all other remaining toes intact. Objective Data Vital Signs Vital Signs: Vital Signs - 24 hr 02/11/25 21:24 02/12/25 06:04 02/12/25 08:28 Temperature 97.6 F 98.1 F Pulse Rate 70 82 75 Respiratory Rate 17 Blood Pressure 139/86 121/89 Pulse Oximetry 99 95 Intake/Output Intake/Output: Intake & Output 02/09/25 02/10/25 02/11/25 02/12/25 23:59 23:59 23:59 23:59 Intake Total 1000 3020 1975 1009 Balance 1000 3020 1975 1009 Meds/Results Medications: Active Medications Generic Name Dose Route Start Last Admin Trade Name Freq PRN Reason Stop Dose Admin Acetaminophen 650 mg 02/08/25 20:45 Acetaminophen 325 Mg Tablet PO Q4H PRN Mild Pain (1-3) or Fever Hydrocodone Bitart/Acetaminophen 1 tab 02/09/25 12:22 02/11/25 20:31 Hydrocodone/Acetaminophen (*Crx) 5-325 Mg Tablet PO 1 tab Q4H PRN Administration Pain Rated 4-6 Hydrocodone Bitart/Acetaminophen 1 tab 02/09/25 12:22 Hydrocodone/Acetaminophen (*Crx) 7.5-325 Mg Tablet PO Q4H PRN Pain Rated 7-10 Albuterol 2 puff 02/09/25 04:10 Albuterol Sulfate (*Sp) Aerosol 1 Puff INHALATION Q6HRT PRN SHORTNESS OF BREATH/WHEEZING Apixaban 5 mg 02/11/25 09:00 02/12/25 08:29 Apixaban 5 Mg Tablet PO 5 mg Q12HR LAURA Administration Aspirin 81 mg 02/11/25 09:00 02/12/25 08:29 Aspirin 81 Mg Enteric Tablet PO 81 mg QAM LAURA Administration Bupropion HCl 150 mg 02/09/25 09:00 02/12/25 08:29 Bupropion Hcl Sr (12 Hr) 150 Mg Tab PO 150 mg DAILY LAURA Administration Clonazepam 0.5 mg 02/09/25 04:06 02/12/25 13:28 Clonazepam (*Crx) 0.5 Mg Tablet PO 0.5 mg BID PRN Administration Anxiety Cyanocobalamin 500 mcg 02/09/25 09:00 02/12/25 08:28 Cyanocobalamin 500 Mcg Tablet PO 03/11/25 08:59 500 mcg DAILY LAURA Administration Dextrose 12.5 gm 02/09/25 05:45 Dextrose 50% 25 Gm/50 Ml Syringe IV PUSH PRN PRN Hypoglycemia Protocol Fentanyl Citrate 25 mcg 02/09/25 15:38 Fentanyl Citrate Inj (*Crx) 100 Mcg/2 Ml Vial IV PUSH Q2M PRN Pain Gabapentin 300 mg 02/09/25 06:00 02/12/25 13:25 Gabapentin 300 Mg Capsule PO 300 mg Q8HR LAURA Administration Glucagon 1 mg 02/09/25 04:10 Glucagon For Inj 1 Mg Vial IM PRN PRN Hypoglycemia Protocol Glucose 15 gm 02/09/25 04:10 Glucose Oral Gel 15 Gm Of Glucse In 37.5 Gm Tube PO PRN PRN Hypoglycemia Protocol Hydroxyzine HCl 25 mg 02/09/25 04:06 02/11/25 08:55 Hydroxyzine Hcl 25 Mg Tablet PO 25 mg BID PRN Administration Anxiety Dextrose 1,000 mls @ 100 mls/hr 02/09/25 05:45 Dextrose 5% 1,000 Ml IVPB PRN PRN Hypoglycemia Protocol Cefepime HCl 2 gm/ Sodium 50 mls @ 100 mls/hr 02/09/25 09:00 02/12/25 09:05 Chloride IVPB Infused Q12H LAURA Infusion Metronidazole 500 mg in 100 mls @ 100 mls/hr 02/09/25 06:00 02/12/25 13:25 Flagyl 500 Mg/Iso Soln 100 Ml IVPB 100 mls/hr Q8HR LAURA Administration Vancomycin HCl 1,500 mg in 500 mls @ 250 mls/hr 02/09/25 09:00 02/12/25 08:36 Vancomycin 1,500 Mg/Ns 500 Ml IVPB 100 mls/hr Q12H LAURA Administration Insulin Aspart 2 - 5 units 02/11/25 08:00 02/12/25 11:32 Insulin Aspart (*Bkc) 100 Units/Ml SUB-Q Not Given TIDWM LAURA Protocol Loratadine 10 mg 02/09/25 09:00 02/12/25 08:29 Loratadine 10 Mg Tablet PO 10 mg DAILY LAURA Administration Magnesium Oxide 400 mg 02/09/25 09:00 02/12/25 08:28 Magnesium Oxide 400 Mg Tablet PO 400 mg BID LAURA Administration Melatonin 5 mg 02/09/25 21:00 02/11/25 20:42 Melatonin 5 Mg Tablet PO 5 mg HS LAURA Administration Metoprolol Tartrate 50 mg 02/09/25 09:00 02/12/25 08:28 Metoprolol Tartrate 50 Mg Tab BY MOUTH 50 mg Q12HR LAURA Administration Morphine Sulfate 4 mg 02/09/25 17:03 Morphine Sulfate (*Crx) 4 Mg/Ml Inj IV PUSH Q4H PRN Pain Rated 7-10 Nicotine 1 patch 02/08/25 21:25 02/12/25 08:26 Nicotine (*Pbkc) 14 Mg Patch TRANSDERM 1 patch DAILY LAURA Administration (Paliperidone 3 Mg 1 each 02/12/25 21:00 Oral Tablet, PO 03/14/25 20:59 Extended Release 24 HS LAURA Hr) Ondansetron HCl 4 mg 02/08/25 20:45 Ondansetron Inj 4 Mg/2 Ml Vial IV PUSH Q4H PRN Nausea Ondansetron HCl 4 mg 02/09/25 15:38 Ondansetron Inj 4 Mg/2 Ml Vial IV PUSH ONCE PRN Nausea Pantoprazole Sodium 40 mg 02/09/25 09:00 02/12/25 08:29 Pantoprazole 40 Mg Tablet BY MOUTH 40 mg DAILY LAURA Administration Paroxetine HCl 40 mg 02/09/25 09:00 02/12/25 08:29 Paroxetine 20 Mg Tablet PO 40 mg DAILY LAURA Administration Pravastatin Sodium 20 mg 02/09/25 21:00 02/11/25 20:29 Pravastatin Sodium 20 Mg Tablet PO 20 mg QHS LAURA Administration Vitamin D 50 mcg 02/09/25 09:00 02/12/25 08:28 Cholecalciferol (Vitamin D3) 25 Mcg (1,000 Units) Tablet PO 50 mcg DAILY LAURA Administration Radiology Results: ITS Impressions Foot X-Ray 02/08/25 17:23 IMPRESSION: 1. Significant erosive changes with pathological fracture of distal fifth metatarsal bone suggestive of osteomyelitis with pathologic fracture. Labs Labs: Laboratory Results - last 24 hr 02/11/25 02/11/25 02/12/25 16:16 20:02 05:42 WBC 12.0 H RBC 4.28 L Hgb 12.7 L Hct 38.3 L MCV 89.5 MCH 29.7 MCHC 33.2 RDW 13.7 Plt Count 359 MPV 9.4 Sodium 135 L Potassium 4.0 Chloride 105 Carbon Dioxide 21 L Anion Gap 9 BUN 11 Creatinine 0.91 Estim Creat Clear Calc 95 Estimated GFR > 60 Glucose 131 H POC Capillary Glucose 145 H 155 H Calcium 9.3 02/12/25 02/12/25 07:22 11:08 WBC RBC Hgb Hct MCV MCH MCHC RDW Plt Count MPV Sodium Potassium Chloride Carbon Dioxide Anion Gap BUN Creatinine Estim Creat Clear Calc Estimated GFR Glucose POC Capillary Glucose 141 H 132 H Calcium
[2025-02-12 13:58] VITALS: BP 130/69; PULSE 80; RESP 16; TEMP 36.1; O2SAT 95
--- NOTE | 2025-02-12 19:27 | WPDIDCN ---
Assessment and Plan Assessment and plan (1) Diabetic foot infection: Code(s): E11.628 - Type 2 diabetes mellitus with other skin complications; L08.9 - Local infection of the skin and subcutaneous tissue, unspecified Status: Acute (2) Osteomyelitis: Code(s): M86.9 - Osteomyelitis, unspecified Status: Acute Assessment and Plan: ASSESSMENT: 1. Right foot, plantar/lateral foot wound with abscess and osteomyelitis/fracture of 5th metatarsal head s/p I&D with partial 5th ray resection on 01/09/25; abscess cx with PSAR and enterococcus 2. DM 3. Afib, CAD, HTN, HL, obesity, COPD 4. anxiety, depression, schizophrenia RECOMMENDATIONS: -stop current abx--cefepime/vanco/flagyl -enterococcus is likely contaminant--PSAR is likely real pathogen -need to f/u on path margin -start levaquin--Current QTC is 446--plan to repeat EKG in a day or 2 to make sure QTC is not becoming prolonged -f/u on blood cxs--so far NGTD Pt was seen via video telehealth consultation with the assistance of staff. Chart, data and patient info reviewed. Patient was located at [facility] while I was in my [place] office. Pt gave consent. HPI Data of Consult Date/Time: 02/12/25 19:27 Requesting Physician: Jose E Swanson MD Primary Care Provider: Rosemary Wilson, ROD DRAWER Consult Narrative Reason for consult: foot abscess, osteomyelitis Narrative: Cas Ruiz is a 69 year old male with pmhx/o Afib, obesity, CAD, COPD, HL, HTN, CKD, anxiety, depression, schizoprenia, DM, presented to hospital with a 1-2 month long right foot wound. Xray with osteomyelitis of 5th metatarsal head. Also with abscess. Pt underwent partial 5th ray resection on 02/09. Abscess growing pseudomonas and enterococcus. On vanco, cefepime and flagyl. ID consulted for abx mgmt. Today at my visit pt denies foot pain. Also states he is not feeling well. No fevers or chills. PMFSH Past Medical History Medical History (Updated 02/09/25 @ 15:17 by Jose Mayfield DO) CASI (obstructive sleep apnea) Anxiety Depression Schizophrenia Morbid obesity with BMI of 40.0-44.9, adult Type 2 DM with CKD stage 3 and hypertension Poor dentition Acquired hypothyroidism Atrial fibrillation Coronary artery disease Surgical History Surgical History H/O heart artery stent Surgical history unknown Family History Family History Mother Depression Hypertension Family history of arthritis Diabetes mellitus Father Family history of alcoholism Sibling Family history of alcoholism Grandparent Family history of cardiovascular disease Social History Social History (Updated 02/10/25 @ 00:21 by Selina De La Torre APRN) Social History: The patient is x2. He is a current everyday smoker. The patient lives by himself. He does have [employer] come and help him out. He has 1 child. His been on disability. Code status: Full code Smoking packs per day: 2 Smoking cigarettes per day: 40.0 Years smoked: 47 Smoking pack-years: 94.00 Smoking status: Current every day smoker Tobacco type: cigarettes Second hand tobacco smoke exposure: Yes Alcohol intake: never Substance use: former Substance use type: does not use Lack of Transportation: No Lack of Food: Never True Current Housing: I Have Housing Concerned About Future Housing: No Difficulty Paying Gas/Electric Bills: No Difficulty Paying for Meds: No Currently Unemployed: No Education: High School Diploma/GED Difficulty w/ Childcare or Family Care: No Spiritual care concerns: No Meds Home Medications and Allergies Home Medications ?Medication ?Instructions ?Recorded ?Confirmed ?Type aspirin 81 mg tablet,delayed 81 mg PO DAILY 03/27/19 02/08/25 History release (Adult Aspirin Regimen) clonazepam 0.5 mg tablet 0.5 mg PO BID PRN Anxiety 03/27/19 02/08/25 History loratadine 10 mg tablet (Allergy 10 mg PO DAILY 03/27/19 02/08/25 History Relief (loratadine)) cholecalciferol (vitamin D3) 250 50 mcg PO DAILY 07/18/19 02/08/25 History mcg (10,000 unit) capsule mecobalamin (vitamin B12) 5,000 500 mcg PO DAILY 07/18/19 02/08/25 History mcg disintegrating tablet melatonin 3 mg capsule 5 mg PO HS 10/10/19 02/08/25 History bupropion HCl 150 mg tablet,12 hr 150 mg PO DAILY 01/15/20 02/08/25 History sustained-release paliperidone 6 mg tablet,extended 6 mg PO HS 01/15/20 02/08/25 History release 24 hr pantoprazole 40 mg tablet,delayed See Rx Instructions .Route 06/30/21 02/08/25 Rx release .COMPLEX #90 tabs pravastatin 20 mg tablet 20 mg PO DAILY #90 tabs 07/03/21 02/08/25 Rx magnesium oxide 400 mg PO BID #60 tabs 08/15/21 02/08/25 Rx albuterol sulfate 90 mcg/actuation See Rx Instructions .Route 01/20/22 02/08/25 Rx aerosol inhaler .COMPLEX #8.5 grams hydroxyzine HCl 25 mg tablet 25 mg PO BID PRN Anxiety 06/02/22 02/08/25 History paroxetine HCl 40 mg tablet 40 mg PO DAILY 06/02/22 02/08/25 History apixaban 5 mg tablet (Eliquis) See Rx Instructions .Route 07/16/22 02/08/25 Rx .COMPLEX #180 tabs metoprolol tartrate 50 mg tablet See Rx Instructions .Route 06/19/24 02/08/25 Rx .COMPLEX #60 tabs walker #1 ea 01/16/25 02/08/25 Rx gabapentin 300 mg capsule 300 mg PO Q8H neuropathy 02/08/25 02/08/25 History semaglutide 3 mg tablet (Rybelsus) 7 mg PO DAILY@0800 diabetes 02/08/25 02/08/25 History Allergies Allergy/AdvReac Type Severity Reaction Status Date / Time Sulfa (Sulfonamide Allergy Unknown Unknown Verified 01/24/25 09:06 Antibiotics) niacin AdvReac Mild Flushing Verified 01/24/25 09:06 lactose milk products AdvReac Intermediate GI upset Uncoded 01/24/25 09:06 Vital Signs Vital Signs - 24 hr 02/11/25 21:24 02/12/25 06:04 02/12/25 08:28 Temperature 97.6 F 98.1 F Pulse Rate 70 82 75 Respiratory Rate 17 Blood Pressure 139/86 121/89 Pulse Oximetry 99 95 02/12/25 13:58 Temperature 97.0 F L Pulse Rate 80 Respiratory Rate 16 Blood Pressure 130/69 Pulse Oximetry 95 Exam Narrative: NAD, non-toxic, on room air breathing appears comfortable Results Labs 02/12/25 05:42 02/12/25 05:42 Labs: Short CBC 02/12/25 Range/Units 05:42 WBC 12.0 H (4.5-10.0) K/mm3 Hgb 12.7 L (14.0-18.0) g/dL Hct 38.3 L (42.0-52.0) % Plt Count 359 (150-375) k/mm3 BMP 02/12/25 05:42 Sodium 135 L Potassium 4.0 Chloride 105 Carbon Dioxide 21 L BUN 11 Creatinine 0.91 Glucose 131 H Calcium 9.3
[2025-02-12] MEDS: HYDROcodone/acetaminophen (*CRX) 5-325 MG TABLET 1 TAB PO (20:16)
[2025-02-12] MEDS: PRAVASTATIN SODIUM 20 MG TABLET PO (20:16)
[2025-02-12] MEDS: MELATONIN 5 MG TABLET PO (20:17)
[2025-02-12] MEDS: levoFLOXacin 750 MG/D5W 150 ML 750 MG/150 ML BAG 100 MG IVPB (21:17)
[2025-02-12 21:30] VITALS: BP 129/65; PULSE 85; RESP 20; TEMP 35.8; O2SAT 99
[2025-02-13] MEDS: GABAPENTIN 300 MG CAPSULE PO ×3 (05:25→21:32)
[2025-02-13 05:30] VITALS: BP 135/63; PULSE 76; RESP 20; TEMP 36.1; O2SAT 96
[2025-02-13] MEDS: buPROPion HCL SR (12 HR) 150 MG TAB PO (08:35)
[2025-02-13] MEDS: LORATADINE 10 MG TABLET PO (08:35)
[2025-02-13] MEDS: CHOLECALCIFEROL (VITAMIN D3) 25 MCG (1,000 UNITS) TABLET 50 MCG PO (08:35)
[2025-02-13] MEDS: APIXABAN 5 MG TABLET PO ×2 (08:35→20:28)
[2025-02-13] MEDS: PANTOPRAZOLE 40 MG TABLET BY MOUTH (08:35)
[2025-02-13 08:36] VITALS: PULSE 83
[2025-02-13] MEDS: METOPROLOL TARTRATE 50 MG TAB BY MOUTH ×2 (08:36→20:28)
[2025-02-13] MEDS: CYANOCOBALAMIN 500 MCG TABLET PO (08:37)
[2025-02-13] MEDS: MAGNESIUM OXIDE 400 MG TABLET PO ×2 (08:37→17:16)
[2025-02-13] MEDS: ASPIRIN 81 MG ENTERIC TABLET PO (08:37)
[2025-02-13] MEDS: NICOTINE (*PBKC) 14 MG PATCH 1 PATCH TRANSDERM (08:37)
--- NOTE | 2025-02-13 10:00 | P.PNIM_ITS ---
Progress Note: A&P Assessment and Plan (1) Osteomyelitis: Code(s): M86.9 - Osteomyelitis, unspecified Status: Acute Assessment and Plan: Significant erosive changes with pathological fracture of distal fifth me tatarsal bone suggestive of osteomyelitis with pathologic fracture.s/p incision and drainage of right foot abscess with transmetatarsal amputation of right 5th toe per Dr. Delgado on 02/09 -surgery has been consulted. -Eliquis and aspirin restarted -Continue Flagyl, cefepime and vancomycin. Discontinue -blood cultures are pending Surgical pathology are pending. Wound culture on 02/09 resulted as Pseudomonas which is likely contaminant as the wound had no drainage at the time wound VAC in place ID consulted for antibiotic guidance start levofloxacin, DC Zofran and other QTC prolonging medications -PT/OT consult weight-bearing through heel of right foot Check QTC 2 days (2) Type 2 DM with CKD stage 3 and hypertension: Code(s): E11.22 - Type 2 diabetes mellitus with diabetic chronic kidney disease; I12.9 - Hypertensive chronic kidney disease with stage 1 through stage 4 chronic kidney disease, or unspecified chronic kidney disease; N18.30 - Chronic kidney disease, stage 3 unspecified Status: Chronic Assessment and Plan: -accu checks -avoid hypoglycemia -Hgba1c 02/09/25 6.6% -SSI low dose with meals (3) Peripheral neuropathy: Code(s): G62.9 - Polyneuropathy, unspecified Status: Acute Assessment and Plan: -continue with gabapentin (4) COPD (chronic obstructive pulmonary disease): Code(s): J44.9 - Chronic obstructive pulmonary disease, unspecified Status: Acute Assessment and Plan: -continue with inhaler (5) CASI on CPAP: Code(s): G47.33 - Obstructive sleep apnea (adult) (pediatric); Z99.89 - Dependence on other enabling machines and devices Status: Chronic Assessment and Plan: -auto titrate CPAP/BiPAP home settings. (6) Tobacco abuse: Code(s): Z72.0 - Tobacco use Status: Chronic Assessment and Plan: -smoking cessation has been initiated. (7) Dyslipidemia: Code(s): E78.5 - Hyperlipidemia, unspecified Status: Acute Assessment and Plan: -continue with pravastatin (8) Hypertension: Code(s): I10 - Essential (primary) hypertension Status: Acute Assessment and Plan: -continue with metoprolol (9) Anxiety: Code(s): F41.9 - Anxiety disorder, unspecified Status: Acute Assessment and Plan: -continue with hydroxyzine, clonazepam, and paroxetine (10) Depression: Code(s): F32.A - Depression, unspecified Status: Acute Assessment and Plan: -continue with bupropion (11) Schizophrenia: Code(s): F20.9 - Schizophrenia, unspecified Status: Acute Assessment and Plan: -paliperidone is nonformulary. Requesting family bring in from home Time Spent With Patient Time with patient: 25 - 35 minutes Subjective Date/time seen: 02/13/25 10:00 Interval history: 69-year-old male patient with a history of diabetes with nonhealing foot ulcer found to have osteomyelitis of the 5th metatarsal. Patient had surgical amputation of his right 5th toe, weight-bearing only to the heel of the right foot wound VAC in place. Patient has no complaints, Id social antibiotics from cefepime vanco Flagyl to Levaquin, when patient is ready to transition to oral he may discharge Review of Systems Review of Systems: 12 systems were reviewed and are negativ e except for as per HPI. Exam Narrative: General: well appearing, appears stated age. HEENT: normocephalic, atraumatic. Mucous membranes moist. EOMI, PERRLA Respiratory: clear bilaterally. No rales/rhonic/wheezes. Cardiovascular: Regular rate and rhythm, normal S1-S2. No murmurs, rubs, or clicks. Abdomen: Soft, round, no pulsatile masses, nondistended and nontender. No rebound, no guarding. Bowel sounds present to all four quadrants. Extremities: No cyanosis, clubbing, or edema present. Neuro: Alert and orientated x 4. PERRLA. Skin: Warm, dry, and intact, without rash, erythema, or lesion. Right foot with wound VAC suction intact Psych: pleasant, cooperative, normal speech, normal affect, no hallucinations, no dysarthia Objective Data Vital Signs Vital Signs: Vital Signs - 24 hr 02/12/25 13:58 02/12/25 21:30 02/12/25 23:30 Temperature 97.0 F L 96.4 F L Pulse Rate 80 85 Respiratory Rate 16 20 Blood Pressure 130/69 129/65 Pulse Oximetry 95 99 Oxygen Delivery Room Air 02/13/25 05:30 02/13/25 08:36 Temperature 97 F L Pulse Rate 76 83 Respiratory Rate 20 Blood Pressure 135/63 Pulse Oximetry 96 Oxygen Delivery Intake/Output Intake/Output: Intake & Output 02/10/25 02/11/25 02/12/25 02/13/25 23:59 23:59 23:59 23:59 Intake Total 3021975 2400 968 Balance 3019 1975 2399 968 Meds/Results Medications: Active Medications Generic Name Dose Route Start Last Admin Trade Name Freq PRN Reason Stop Dose Admin Acetaminophen 650 mg 02/08/25 20:45 Acetaminophen 325 Mg Tablet PO Q4H PRN Mild Pain (1-3) or Fever Hydrocodone Bitart/Acetaminophen 1 tab 02/09/25 12:22 02/12/25 20:16 Hydrocodone/Acetaminophen (*Crx) 5-325 Mg Tablet PO 1 tab Q4H PRN Administration Pain Rated 4-6 Hydrocodone Bitart/Acetaminophen 1 tab 02/09/25 12:22 Hydrocodone/Acetaminophen (*Crx) 7.5-325 Mg Tablet PO Q4H PRN Pain Rated 7-10 Albuterol 2 puff 02/09/25 04:10 Albuterol Sulfate (*Sp) Aerosol 1 Puff INHALATION Q6HRT PRN SHORTNESS OF BREATH/WHEEZING Apixaban 5 mg 02/11/25 09:00 02/13/25 08:35 Apixaban 5 Mg Tablet PO 5 mg Q12HR LAURA Administration Aspirin 81 mg 02/11/25 09:00 02/13/25 08:37 Aspirin 81 Mg Enteric Tablet PO 81 mg QAM LAURA Administration Bupropion HCl 150 mg 02/09/25 09:00 02/13/25 08:35 Bupropion Hcl Sr (12 Hr) 150 Mg Tab PO 150 mg DAILY LAURA Administration Clonazepam 0.5 mg 02/09/25 04:06 02/12/25 20:16 Clonazepam (*Crx) 0.5 Mg Tablet PO 0.5 mg BID PRN Administration Anxiety Cyanocobalamin 500 mcg 02/09/25 09:00 02/13/25 08:37 Cyanocobalamin 500 Mcg Tablet PO 03/11/25 08:59 500 mcg DAILY LAURA Administration Dextrose 12.5 gm 02/09/25 05:45 Dextrose 50% 25 Gm/50 Ml Syringe IV PUSH PRN PRN Hypoglycemia Protocol Fentanyl Citrate 25 mcg 02/09/25 15:38 Fentanyl Citrate Inj (*Crx) 100 Mcg/2 Ml Vial IV PUSH Q2M PRN Pain Gabapentin 300 mg 02/09/25 06:00 02/13/25 05:25 Gabapentin 300 Mg Capsule PO 300 mg Q8HR LAURA Administration Glucagon 1 mg 02/09/25 04:10 Glucagon For Inj 1 Mg Vial IM PRN PRN Hypoglycemia Protocol Glucose 15 gm 02/09/25 04:10 Glucose Oral Gel 15 Gm Of Glucse In 37.5 Gm Tube PO PRN PRN Hypoglycemia Protocol Dextrose 1,000 mls @ 100 mls/hr 02/09/25 05:45 Dextrose 5% 1,000 Ml IVPB PRN PRN Hypoglycemia Protocol Levofloxacin/Dextrose 750 mg in 150 mls @ 100 mls/hr 02/12/25 21:00 02/12/25 21:17 Levaquin 750 Mg/D5w 150 Ml IVPB 100 mls/hr Q24H LAURA Administration Insulin Aspart 2 - 5 units 02/11/25 08:00 02/13/25 08:37 Insulin Aspart (*Bkc) 100 Units/Ml SUB-Q Not Given TIDWM LAURA Protocol Loratadine 10 mg 02/09/25 09:00 02/13/25 08:35 Loratadine 10 Mg Tablet PO 10 mg DAILY LAURA Administration Magnesium Oxide 400 mg 02/09/25 09:00 02/13/25 08:37 Magnesium Oxide 400 Mg Tablet PO 400 mg BID LAURA Administration Melatonin 5 mg 02/09/25 21:00 02/12/25 20:17 Melatonin 5 Mg Tablet PO 5 mg HS LUARA Administration Metoprolol Tartrate 50 mg 02/09/25 09:00 02/13/25 08:36 Metoprolol Tartrate 50 Mg Tab BY MOUTH 50 mg Q12HR LAURA Administration Morphine Sulfate 4 mg 02/09/25 17:03 Morphine Sulfate (*Crx) 4 Mg/Ml Inj IV PUSH Q4H PRN Pain Rated 7-10 Nicotine 1 patch 02/08/25 21:25 02/13/25 08:37 Nicotine (*Pbkc) 14 Mg Patch TRANSDERM 1 patch DAILY LAURA Administration (Paliperidone 3 Mg 1 each 02/12/25 21:00 02/12/25 20:18 Oral Tablet, PO 03/14/25 20:59 1 each Extended Release 24 HS LAURA Administration Hr) Pantoprazole Sodium 40 mg 02/09/25 09:00 02/13/25 08:35 Pantoprazole 40 Mg Tablet BY MOUTH 40 mg DAILY LAURA Administration Paroxetine HCl 40 mg 02/09/25 09:00 02/13/25 08:35 Paroxetine 20 Mg Tablet PO 40 mg DAILY LAURA Administration Pravastatin Sodium 20 mg 02/09/25 21:00 02/12/25 20:16 Pravastatin Sodium 20 Mg Tablet PO 20 mg QHS LAURA Administration Vitamin D 50 mcg 02/09/25 09:00 02/13/25 08:35 Cholecalciferol (Vitamin D3) 25 Mcg (1,000 Units) Tablet PO 50 mcg DAILY LAURA Administration Radiology Results: ITS Impressions Foot X-Ray 02/08/25 17:23 IMPRESSION: 1. Significant erosive changes with pathological fracture of distal fifth metatarsal bone suggestive of osteomyelitis with pathologic fracture. Labs Labs: Laboratory Results - last 24 hr 02/12/25 02/12/25 02/12/25 11:08 16:11 21:33 POC Capillary Glucose 132 H 148 H 137 H 02/13/25 07:52 POC Capillary Glucose 133 H Quality VTE Prophylaxis VTE prophylaxis: pharmacologic ordered (When able to start the Eliquis again.)
--- NOTE | 2025-02-13 10:03 | WPDINFPN2 ---
Progress Note: A&P Assessment and Plan (1) Diabetic foot infection: Code(s): E11.628 - Type 2 diabetes mellitus with other skin complications; L08.9 - Local infection of the skin and subcutaneous tissue, unspecified Status: Acute (2) Osteomyelitis: Code(s): M86.9 - Osteomyelitis, unspecified Status: Acute Assessment and Plan: ASSESSMENT: 1. Right foot, plantar/lateral foot wound with abscess and osteomyelitis/fracture of 5th metatarsal head s/p I&D with partial 5th ray resection on 01/09/25; abscess cx with PSAR and enterococcus 2. DM 3. Afib, CAD, HTN, HL, obesity, COPD 4. anxiety, depression, schizophrenia RECOMMENDATIONS: -enterococcus is likely contaminant--PSAR is likely real pathogen -need to f/u on path margin -continue levaquin (day2)--Current QTC is 446--plan to repeat EKG in a day or 2 to make sure QTC is not becoming prolonged -f/u on blood cxs--so far NGTD -d/w wound care nurse-->wound granular -heat pack to hand -home soon Pt was seen via video telehealth consultation with the assistance of staff. Chart, data and patient info reviewed. Patient was located at [facility] while I was in my [place] office. Pt gave consent. Subjective Date/time seen: 02/13/25 10:03 Interval history: no fever Exam Narrative: Non-toxic, on room air RUE phlebitis wound vac in place on right foot Objective Data Vital Signs Vital Signs: Vital Signs - 24 hr 02/12/25 13:58 02/12/25 21:30 02/12/25 23:30 Temperature 97.0 F L 96.4 F L Pulse Rate 80 85 Respiratory Rate 16 20 Blood Pressure 130/69 129/65 Pulse Oximetry 95 99 Oxygen Delivery Room Air 02/13/25 05:30 02/13/25 08:36 Temperature 97 F L Pulse Rate 76 83 Respiratory Rate 20 Blood Pressure 135/63 Pulse Oximetry 96 Oxygen Delivery Intake/Output Intake/Output: Intake & Output 02/10/25 02/11/25 02/12/25 02/13/25 23:59 23:59 23:59 23:59 Intake Total 3019 1975 2400 968 Balance 3019 1975 2399 96 Meds/Results Medications: Active Medications Generic Name Dose Route Start Last Admin Trade Name Freq PRN Reason Stop Dose Admin Acetaminophen 650 mg 02/08/25 20:45 Acetaminophen 325 Mg Tablet PO Q4H PRN Mild Pain (1-3) or Fever Hydrocodone Bitart/Acetaminophen 1 tab 02/09/25 12:22 02/12/25 20:16 Hydrocodone/Acetaminophen (*Crx) 5-325 Mg Tablet PO 1 tab Q4H PRN Administration Pain Rated 4-6 Hydrocodone Bitart/Acetaminophen 1 tab 02/09/25 12:22 Hydrocodone/Acetaminophen (*Crx) 7.5-325 Mg Tablet PO Q4H PRN Pain Rated 7-10 Albuterol 2 puff 02/09/25 04:10 Albuterol Sulfate (*Sp) Aerosol 1 Puff INHALATION Q6HRT PRN SHORTNESS OF BREATH/WHEEZING Apixaban 5 mg 02/11/25 09:00 02/13/25 08:35 Apixaban 5 Mg Tablet PO 5 mg Q12HR LAURA Administration Aspirin 81 mg 02/11/25 09:00 02/13/25 08:37 Aspirin 81 Mg Enteric Tablet PO 81 mg QAM LAURA Administration Bupropion HCl 150 mg 02/09/25 09:00 02/13/25 08:35 Bupropion Hcl Sr (12 Hr) 150 Mg Tab PO 150 mg DAILY LAURA Administration Clonazepam 0.5 mg 02/09/25 04:06 02/12/25 20:16 Clonazepam (*Crx) 0.5 Mg Tablet PO 0.5 mg BID PRN Administration Anxiety Cyanocobalamin 500 mcg 02/09/25 09:00 02/13/25 08:37 Cyanocobalamin 500 Mcg Tablet PO 03/11/25 08:59 500 mcg DAILY LAURA Administration Dextrose 12.5 gm 02/09/25 05:45 Dextrose 50% 25 Gm/50 Ml Syringe IV PUSH PRN PRN Hypoglycemia Protocol Fentanyl Citrate 25 mcg 02/09/25 15:38 Fentanyl Citrate Inj (*Crx) 100 Mcg/2 Ml Vial IV PUSH Q2M PRN Pain Gabapentin 300 mg 02/09/25 06:00 02/13/25 05:25 Gabapentin 300 Mg Capsule PO 300 mg Q8HR LAURA Administration Glucagon 1 mg 02/09/25 04:10 Glucagon For Inj 1 Mg Vial IM PRN PRN Hypoglycemia Protocol Glucose 15 gm 02/09/25 04:10 Glucose Oral Gel 15 Gm Of Glucse In 37.5 Gm Tube PO PRN PRN Hypoglycemia Protocol Dextrose 1,000 mls @ 100 mls/hr 02/09/25 05:45 Dextrose 5% 1,000 Ml IVPB PRN PRN Hypoglycemia Protocol Levofloxacin/Dextrose 750 mg in 150 mls @ 100 mls/hr 02/12/25 21:00 02/12/25 21:17 Levaquin 750 Mg/D5w 150 Ml IVPB 100 mls/hr Q24H LAURA Administration Insulin Aspart 2 - 5 units 02/11/25 08:00 02/13/25 08:37 Insulin Aspart (*Bkc) 100 Units/Ml SUB-Q Not Given TIDWM LAURA Protocol Loratadine 10 mg 02/09/25 09:00 02/13/25 08:35 Loratadine 10 Mg Tablet PO 10 mg DAILY LAURA Administration Magnesium Oxide 400 mg 02/09/25 09:00 02/13/25 08:37 Magnesium Oxide 400 Mg Tablet PO 400 mg BID LAURA Administration Melatonin 5 mg 02/09/25 21:00 02/12/25 20:17 Melatonin 5 Mg Tablet PO 5 mg HS LAURA Administration Metoprolol Tartrate 50 mg 02/09/25 09:00 02/13/25 08:36 Metoprolol Tartrate 50 Mg Tab BY MOUTH 50 mg Q12HR LAURA Administration Morphine Sulfate 4 mg 02/09/25 17:03 Morphine Sulfate (*Crx) 4 Mg/Ml Inj IV PUSH Q4H PRN Pain Rated 7-10 Nicotine 1 patch 02/08/25 21:25 02/13/25 08:37 Nicotine (*Pbkc) 14 Mg Patch TRANSDERM 1 patch DAILY LAURA Administration (Paliperidone 3 Mg 1 each 02/12/25 21:00 02/12/25 20:18 Oral Tablet, PO 03/14/25 20:59 1 each Extended Release 24 HS LAURA Administration Hr) Pantoprazole Sodium 40 mg 02/09/25 09:00 02/13/25 08:35 Pantoprazole 40 Mg Tablet BY MOUTH 40 mg DAILY LAURA Administration Paroxetine HCl 40 mg 02/09/25 09:00 02/13/25 08:35 Paroxetine 20 Mg Tablet PO 40 mg DAILY ALURA Administration Pravastatin Sodium 20 mg 02/09/25 21:00 02/12/25 20:16 Pravastatin Sodium 20 Mg Tablet PO 20 mg QHS LAURA Administration Vitamin D 50 mcg 02/09/25 09:00 02/13/25 08:35 Cholecalciferol (Vitamin D3) 25 Mcg (1,000 Units) Tablet PO 50 mcg DAILY LAURA Administration Radiology Results: ITS Impressions Foot X-Ray 02/08/25 17:23 IMPRESSION: 1. Significant erosive changes with pathological fracture of distal fifth metatarsal bone suggestive of osteomyelitis with pathologic fracture. Labs Labs: Laboratory Results - last 24 hr 02/12/25 02/12/25 02/12/25 11:08 16:11 21:33 POC Capillary Glucose 132 H 148 H 137 H 02/13/25 07:52 POC Capillary Glucose 133 H
[2025-02-13 10:33] LABS: Hematocrit 36.1 % (42.0-52.0); Hemoglobin 11.9 g/dL (14.0-18.0); Mean Corpuscular HGB Conc 33.0 g/dl (32-36); Mean Corpuscular Hemoglobin 30.1 pg (26-34); Mean Corpuscular Volume 91.4 fl (80-100); Platelet Count Result 315 k/mm3 (150-375); Red Blood Count 3.95 M/mm3 (4.6-6.20); White Blood Count 9.1 K/mm3 (4.5-10.0)
[2025-02-13 10:56] LABS: Anion Gap 7 mmol/L (4-12); Blood Urea Nitrogen 13 mg/dL (9-20); Calcium 8.9 mg/dL (8.4-10.2); Carbon Dioxide 23 mmol/L (22-30); Chloride 104 mmol/L (98-107); Estimated CRCL calculation 94 ml/min; Estimated Glomerular Filt Rate > 60; Glucose 184 mg/dL (65-110); Potassium 3.7 mmol/L (3.4-5.0); Sodium 134 mmol/L (137-145)
--- NOTE | 2025-02-13 12:50 | P.PNGS_ITS ---
Progress Note: A&P Assessment and Plan (1) Diabetic foot infection: Code(s): E11.628 - Type 2 diabetes mellitus with other skin complications; L08.9 - Local infection of the skin and subcutaneous tissue, unspecified Status: Acute Assessment and Plan: * POD4 s/p I&D of R lateral foot abscess and amputation of R 5th toe and metatarsal head. Wound vac applied yesterday and functioning properly. Will plan to change vac dressing tomorrow. * ID consulted yesterday and recommending antibiotics be switched to Levaquin with repeat EKG in a day or two to check QTC. Pathology from surgical specimen still pending. Blood cultures with no growth in 48 hrs. * Patient will likely go to SNF upon discharge. CC in contact with patient's POA, his sister. (2) Osteomyelitis: Code(s): M86.9 - Osteomyelitis, unspecified Status: Acute Plan Discussed patient's case and plan of care with Dr. Delgado. Subjective Subjective Date/Time Seen: 02/13/25 12:50 Patient reports: no new complaints and feels better Interval history: No acute events overnight. WBC normalized to 9.1. Afebrile. Exam Extrem: Other: Wound vac in pace and draining minimal serosanguineous fluid. Surrounding skin appears warm and viable. No surrounding redness. Objective Data Vital Signs Vital Signs: Vital Signs - 24 hr 02/12/25 13:58 02/12/25 21:30 02/12/25 23:30 Temperature 97.0 F L 96.4 F L Pulse Rate 80 85 Respiratory Rate 16 20 Blood Pressure 130/69 129/65 Pulse Oximetry 95 99 Oxygen Delivery Room Air 02/13/25 05:30 02/13/25 08:00 02/13/25 08:36 Temperature 97 F L Pulse Rate 76 83 Respiratory Rate 20 Blood Pressure 135/63 Pulse Oximetry 96 Oxygen Delivery Room Air Intake/Output Intake/Output: Intake & Output 02/10/25 02/11/25 02/12/25 02/13/25 23:59 23:59 23:59 23:59 Intake Total 3020 1975 2400 1088 Balance 3020 1975 2400 1088 Meds/Results Medications: Active Medications Generic Name Dose Route Start Last Admin Trade Name Freq PRN Reason Stop Dose Admin Acetaminophen 650 mg 02/08/25 20:45 Acetaminophen 325 Mg Tablet PO Q4H PRN Mild Pain (1-3) or Fever Hydrocodone Bitart/Acetaminophen 1 tab 02/09/25 12:22 02/12/25 20:16 Hydrocodone/Acetaminophen (*Crx) 5-325 Mg Tablet PO 1 tab Q4H PRN Administration Pain Rated 4-6 Hydrocodone Bitart/Acetaminophen 1 tab 02/09/25 12:22 Hydrocodone/Acetaminophen (*Crx) 7.5-325 Mg Tablet PO Q4H PRN Pain Rated 7-10 Albuterol 2 puff 02/09/25 04:10 Albuterol Sulfate (*Sp) Aerosol 1 Puff INHALATION Q6HRT PRN SHORTNESS OF BREATH/WHEEZING Apixaban 5 mg 02/11/25 09:00 02/13/25 08:35 Apixaban 5 Mg Tablet PO 5 mg Q12HR LAURA Administration Aspirin 81 mg 02/11/25 09:00 02/13/25 08:37 Aspirin 81 Mg Enteric Tablet PO 81 mg QAM LAURA Administration Bupropion HCl 150 mg 02/09/25 09:00 02/13/25 08:35 Bupropion Hcl Sr (12 Hr) 150 Mg Tab PO 150 mg DAILY LAURA Administration Clonazepam 0.5 mg 02/09/25 04:06 02/12/25 20:16 Clonazepam (*Crx) 0.5 Mg Tablet PO 0.5 mg BID PRN Administration Anxiety Cyanocobalamin 500 mcg 02/09/25 09:00 02/13/25 08:37 Cyanocobalamin 500 Mcg Tablet PO 03/11/25 08:59 500 mcg DAILY LAURA Administration Dextrose 12.5 gm 02/09/25 05:45 Dextrose 50% 25 Gm/50 Ml Syringe IV PUSH PRN PRN Hypoglycemia Protocol Fentanyl Citrate 25 mcg 02/09/25 15:38 Fentanyl Citrate Inj (*Crx) 100 Mcg/2 Ml Vial IV PUSH Q2M PRN Pain Gabapentin 300 mg 02/09/25 06:00 02/13/25 05:25 Gabapentin 300 Mg Capsule PO 300 mg Q8HR LAURA Administration Glucagon 1 mg 02/09/25 04:10 Glucagon For Inj 1 Mg Vial IM PRN PRN Hypoglycemia Protocol Glucose 15 gm 02/09/25 04:10 Glucose Oral Gel 15 Gm Of Glucse In 37.5 Gm Tube PO PRN PRN Hypoglycemia Protocol Dextrose 1,000 mls @ 100 mls/hr 02/09/25 05:45 Dextrose 5% 1,000 Ml IVPB PRN PRN Hypoglycemia Protocol Levofloxacin/Dextrose 750 mg in 150 mls @ 100 mls/hr 02/12/25 21:00 02/12/25 21:17 Levaquin 750 Mg/D5w 150 Ml IVPB 100 mls/hr Q24H LAURA Administration Insulin Aspart 2 - 5 units 02/11/25 08:00 02/13/25 12:42 Insulin Aspart (*Bkc) 100 Units/Ml SUB-Q Not Given TIDWM LAURA Protocol Loratadine 10 mg 02/09/25 09:00 02/13/25 08:35 Loratadine 10 Mg Tablet PO 10 mg DAILY LAURA Administration Magnesium Oxide 400 mg 02/09/25 09:00 02/13/25 08:37 Magnesium Oxide 400 Mg Tablet PO 400 mg BID LAURA Administration Melatonin 5 mg 02/09/25 21:00 02/12/25 20:17 Melatonin 5 Mg Tablet PO 5 mg HS LAURA Administration Metoprolol Tartrate 50 mg 02/09/25 09:00 02/13/25 08:36 Metoprolol Tartrate 50 Mg Tab BY MOUTH 50 mg Q12HR LAURA Administration Morphine Sulfate 4 mg 02/09/25 17:03 Morphine Sulfate (*Crx) 4 Mg/Ml Inj IV PUSH Q4H PRN Pain Rated 7-10 Nicotine 1 patch 02/08/25 21:25 02/13/25 08:37 Nicotine (*Pbkc) 14 Mg Patch TRANSDERM 1 patch DAILY LAURA Administration (Paliperidone 3 Mg 1 each 02/12/25 21:00 02/12/25 20:18 Oral Tablet, PO 03/14/25 20:59 1 each Extended Release 24 HS LAURA Administration Hr) Pantoprazole Sodium 40 mg 02/09/25 09:00 02/13/25 08:35 Pantoprazole 40 Mg Tablet BY MOUTH 40 mg DAILY LAURA Administration Paroxetine HCl 40 mg 02/09/25 09:00 02/13/25 08:35 Paroxetine 20 Mg Tablet PO 40 mg DAILY LAURA Administration Pravastatin Sodium 20 mg 02/09/25 21:00 02/12/25 20:16 Pravastatin Sodium 20 Mg Tablet PO 20 mg QHS LAURA Administration Vitamin D 50 mcg 02/09/25 09:00 02/13/25 08:35 Cholecalciferol (Vitamin D3) 25 Mcg (1,000 Units) Tablet PO 50 mcg DAILY LAURA Administration Radiology Results: ITS Impressions Foot X-Ray 02/08/25 17:23 IMPRESSION: 1. Significant erosive changes with pathological fracture of distal fifth metatarsal bone suggestive of osteomyelitis with pathologic fracture. Labs Labs: Laboratory Results - last 24 hr 02/12/25 02/12/25 02/13/25 16:11 21:33 07:52 WBC RBC Hgb Hct MCV MCH MCHC RDW Plt Count MPV Sodium Potassium Chloride Carbon Dioxide Anion Gap BUN Creatinine Estim Creat Clear Calc Estimated GFR Glucose POC Capillary Glucose 148 H 137 H 133 H Calcium 02/13/25 02/13/25 10:16 11:31 WBC 9.1 RBC 3.95 L Hgb 11.9 L Hct 36.1 L MCV 91.4 MCH 30.1 MCHC 33.0 RDW 14.0 Plt Count 315 MPV 9.3 Sodium 134 L Potassium 3.7 Chloride 104 Carbon Dioxide 23 Anion Gap 7 BUN 13 Creatinine 0.92 Estim Creat Clear Calc 94 Estimated GFR > 60 Glucose 184 H POC Capillary Glucose 166 H Calcium 8.9
[2025-02-13 14:00] VITALS: BP 115/72; PULSE 77; RESP 16; TEMP 37.4; O2SAT 98
[2025-02-13] MEDS: levoFLOXacin 750 MG/D5W 150 ML 750 MG/150 ML BAG 100 MG IVPB (20:24)
[2025-02-13] MEDS: MELATONIN 5 MG TABLET PO (20:27)
[2025-02-13] MEDS: PRAVASTATIN SODIUM 20 MG TABLET PO (20:27)
[2025-02-13 20:31] VITALS: PULSE 80; RESP 20; O2SAT 98
[2025-02-13 21:47] VITALS: BP 145/81; PULSE 82; RESP 18; TEMP 36.3; O2SAT 100
[2025-02-13 22:53] VITALS: PULSE 75; RESP 20; O2SAT 95
[2025-02-14] MEDS: GABAPENTIN 300 MG CAPSULE PO ×3 (05:45→21:22)
[2025-02-14 06:00] VITALS: BP 138/70; PULSE 92; RESP 20; TEMP 36.2; O2SAT 96
[2025-02-14] MEDS: NICOTINE (*PBKC) 14 MG PATCH 1 PATCH TRANSDERM (09:21)
[2025-02-14] MEDS: ASPIRIN 81 MG ENTERIC TABLET PO (09:23)
[2025-02-14] MEDS: PANTOPRAZOLE 40 MG TABLET BY MOUTH (09:23)
[2025-02-14] MEDS: CHOLECALCIFEROL (VITAMIN D3) 25 MCG (1,000 UNITS) TABLET 50 MCG PO (09:23)
[2025-02-14] MEDS: buPROPion HCL SR (12 HR) 150 MG TAB PO (09:24)
[2025-02-14] MEDS: APIXABAN 5 MG TABLET PO ×2 (09:24→20:19)
[2025-02-14] MEDS: MAGNESIUM OXIDE 400 MG TABLET PO ×2 (09:24→17:23)
[2025-02-14] MEDS: METOPROLOL TARTRATE 50 MG TAB BY MOUTH ×2 (09:25→20:18)
[2025-02-14] MEDS: LORATADINE 10 MG TABLET PO (09:25)
[2025-02-14] MEDS: CYANOCOBALAMIN 500 MCG TABLET PO (09:25)
[2025-02-14 09:55] LABS: Hematocrit 37.3 % (42.0-52.0); Hemoglobin 12.2 g/dL (14.0-18.0); Mean Corpuscular HGB Conc 32.7 g/dl (32-36); Mean Corpuscular Hemoglobin 29.5 pg (26-34); Mean Corpuscular Volume 90.3 fl (80-100); Platelet Count Result 379 k/mm3 (150-375); Red Blood Count 4.13 M/mm3 (4.6-6.20); White Blood Count 9.2 K/mm3 (4.5-10.0)
--- NOTE | 2025-02-14 11:04 | PCNWS ---
Weekly nutritional screen. Patient is tolerating current Diabetic diet with adequate intake 100% of meals. No weight loss reported. No nutritional recommendations at this time.
--- NOTE | 2025-02-14 11:14 | P.PNIM_ITS ---
Progress Note: A&P Assessment and Plan (1) Osteomyelitis: Code(s): M86.9 - Osteomyelitis, unspecified Status: Acute Assessment and Plan: Significant erosive changes with pathological fracture of distal fifth me tatarsal bone suggestive of osteomyelitis with pathologic fracture.s/p incision and drainage of right foot abscess with transmetatarsal amputation of right 5th toe per Dr. Delgado on 02/09 -surgery following -->Surgery signed off today, will f/u with Dr. Delgado in x1 week after discharge. To go to SNF with wound vac -Eliquis and aspirin restarted -blood cultures are pending, NGTD Wound culture on 02/09 resulted as enterococcus faecalis (which is likely contaminant as the wound had no drainage at the time) and Pseudomonas - PSAR likely real pathogen Wound VAC in place ID consulted for antibiotic guidance continue levofloxacin, DC Zofran and other QTC prolonging medications --Repeat EKG tomorrow after x2 doses of levofloxacin to re assess QTc -PT/OT consult weight-bearing through heel of right foot, likely SNF at discharge (2) Type 2 DM with CKD stage 3 and hypertension: Code(s): E11.22 - Type 2 diabetes mellitus with diabetic chronic kidney disease; I12.9 - Hypertensive chronic kidney disease with stage 1 through stage 4 chronic kidney disease, or unspecified chronic kidney disease; N18.30 - Chronic kidney disease, stage 3 unspecified Status: Chronic Assessment and Plan: -accu checks -avoid hypoglycemia -Hgba1c 02/09/25 6.6% -SSI low dose with meals (3) Peripheral neuropathy: Code(s): G62.9 - Polyneuropathy, unspecified Status: Acute Assessment and Plan: -continue with gabapentin, GFR >60 (4) COPD (chronic obstructive pulmonary disease): Code(s): J44.9 - Chronic obstructive pulmonary disease, unspecified Status: Acute Assessment and Plan: -continue with inhaler (5) CASI on CPAP: Code(s): G47.33 - Obstructive sleep apnea (adult) (pediatric); Z99.89 - Dependence on other enabling machines and devices Status: Chronic Assessment and Plan: -auto titrate CPAP/BiPAP home settings. (6) Tobacco abuse: Code(s): Z72.0 - Tobacco use Status: Chronic Assessment and Plan: -smoking cessation has been initiated. Continue nicotine patch (7) Hypertension: Code(s): I10 - Essential (primary) hypertension Status: Acute Assessment and Plan: -continue with metoprolol (8) Anxiety: Code(s): F41.9 - Anxiety disorder, unspecified Status: Acute Assessment and Plan: -continue with hydroxyzine, clonazepam, and paroxetine (9) Depression: Code(s): F32.A - Depression, unspecified Status: Acute Assessment and Plan: -continue with bupropion (10) Schizophrenia: Code(s): F20.9 - Schizophrenia, unspecified Status: Acute Assessment and Plan: -paliperidone is nonformulary. Requesting family bring in from home Plan Continue to treat with IV abx for osteomyelitis, pending ID recs for oral transition, pending SNF placement Time Spent With Patient Time: 40 Subjective Date/time seen: 02/14/25 1313 Interval history: Pt resting comfortably in bed upon my arrival. Pt denies pain but also cannot feel his R or L foot. Denies N/V/D or any other sx. Review of Systems Review of Systems: 12 systems were reviewed and are negativ e except for as per HPI. Constitutional: Constitutional: Reports as per HPI and Reports no additional constitutional complaints Eyes: Eyes: Reports as per HPI and Reports no additional eye complaints ENT: Reports system reviewed and no additional complaints, except as documented and Reports Normal hearing present Cardiovascular: Cardiovascular: Reports no additional cardiovascular complaints Respiratory: Respiratory: Reports as per HPI and Reports no additional respiratory complaints Gastrointestinal: Gastrointestinal: Reports as per HPI and Reports no additional gastrointestinal complaints Musculoskeletal: Musculoskeletal: Reports no additional musculoskeletal complaints Integumentary/Breasts: Skin/Breast: Reports system reviewed and no additional complaints, except as docu Neurologic: Reports system reviewed and no additional complaints, except as documented and Reports Normal hearing present Psychiatric: Psychiatric: Reports no additional psychiatric complaints and Reports as per HPI Hematologic/Lymphatic: Hematologic/Lymphatic: Reports no additional hematologic/lymphatic complaints Allergic/Immunologic: Allergic/Immunologic: Reports no additional allergic/immunologic complaints Exam Const: General: cooperative, comfortable, no acute distress, well developed, awake, Physically active and well nourished Nutritional Appearance: well nourished Orientation/consciousness: patient oriented x3 HENMT: Head: normal to inspection, No palpable skull fracture present, normocephalic and atraumatic Eyes: General: appearance normal, both eyes and all related structures Alignment and Position: alignment normal Periorbital: periorbital findings normal Eyelids: eyelids normal Neck: Neck: normal visual inspection, full ROM and no lymphadenopathy Chest: Chest palpation & inspection: normal inspection of the chest Resp: Effort & Inspection: normal respiratory effort Auscultation: clear to auscultation bilaterally Cardio: Palpation: normal PMI Rate: regular rate Rhythm: abnormal rhythm Heart sounds: S1 normal heart sound present and S2 normal heart sound present Peripheral pulses: Peripheral pulses 2+ throughout Other: Patient in atrial fibrillation GI: Inspection: normal to inspection Auscultation: normal bowel sounds Rectal Exam: deferred Skin: Other: R pinky toe with wound vac applied, surrounding skin consistent with ethnicity. No feeling to either foot. Valles boot on R foot. -walking boot is intact to the left foot and I did not assess the left foot. Neuro: General: patient oriented x3 Cranial nerves: Yes Equal, round and reactive pupils present and Yes Normal hearing present Cognition (Neuro): normal cognition Speech: normal speech Motor exam (neuro): Normal motor muscle tone present throughout Extrem: General: normal exam except as noted Psych: Appearance: grossly normal Mental Status: mental status grossly normal Speech and movement: Normal speech and movement present Attitude: cooperative Objective Data Vital Signs Vital Signs: Vital Signs - 24 hr 02/13/25 14:00 02/13/25 20:31 02/13/25 21:47 Temperature 99.3 F 97.3 F L Pulse Rate 77 80 82 Respiratory Rate 16 20 18 Blood Pressure 115/72 145/81 H Pulse Oximetry 98 98 100 Oxygen Delivery Room Air Fraction of Inspired Oxygen 02/13/25 22:53 02/14/25 06:00 Temperature 97.1 F L Pulse Rate 75 92 Respiratory Rate 20 20 Blood Pressure 138/70 Pulse Oximetry 95 96 Oxygen Delivery CPAP Fraction of Inspired Oxygen Intake/Output Intake/Output: Intake & Output 02/11/25 02/12/25 02/13/25 02/14/25 23:59 23:59 23:59 23:59 Intake Total 1975 2550 1878 858 Balance 19750 1878 858 Meds/Results Medications: Active Medications Generic Name Dose Route Start Last Admin Trade Name Freq PRN Reason Stop Dose Admin Acetaminophen 650 mg 02/08/25 20:45 Acetaminophen 325 Mg Tablet PO Q4H PRN Mild Pain (1-3) or Fever Hydrocodone Bitart/Acetaminophen 1 tab 02/09/25 12:22 02/12/25 20:16 Hydrocodone/Acetaminophen (*Crx) 5-325 Mg Tablet PO 1 tab Q4H PRN Administration Pain Rated 4-6 Hydrocodone Bitart/Acetaminophen 1 tab 02/09/25 12:22 Hydrocodone/Acetaminophen (*Crx) 7.5-325 Mg Tablet PO Q4H PRN Pain Rated 7-10 Albuterol 2 puff 02/09/25 04:10 Albuterol Sulfate (*Sp) Aerosol 1 Puff INHALATION Q6HRT PRN SHORTNESS OF BREATH/WHEEZING Apixaban 5 mg 02/11/25 09:00 02/14/25 09:24 Apixaban 5 Mg Tablet PO 5 mg Q12HR LAURA Administration Aspirin 81 mg 02/11/25 09:00 02/14/25 09:23 Aspirin 81 Mg Enteric Tablet PO 81 mg QAM LAURA Administration Bupropion HCl 150 mg 02/09/25 09:00 02/14/25 09:24 Bupropion Hcl Sr (12 Hr) 150 Mg Tab PO 150 mg DAILY LAURA Administration Clonazepam 0.5 mg 02/09/25 04:06 02/12/25 20:16 Clonazepam (*Crx) 0.5 Mg Tablet PO 0.5 mg BID PRN Administration Anxiety Cyanocobalamin 500 mcg 02/09/25 09:00 02/14/25 09:25 Cyanocobalamin 500 Mcg Tablet PO 03/11/25 08:59 500 mcg DAILY LAURA Administration Dextrose 12.5 gm 02/09/25 05:45 Dextrose 50% 25 Gm/50 Ml Syringe IV PUSH PRN PRN Hypoglycemia Protocol Fentanyl Citrate 25 mcg 02/09/25 15:38 Fentanyl Citrate Inj (*Crx) 100 Mcg/2 Ml Vial IV PUSH Q2M PRN Pain Gabapentin 300 mg 02/09/25 06:00 02/14/25 05:45 Gabapentin 300 Mg Capsule PO 300 mg Q8HR LAURA Administration Glucagon 1 mg 02/09/25 04:10 Glucagon For Inj 1 Mg Vial IM PRN PRN Hypoglycemia Protocol Glucose 15 gm 02/09/25 04:10 Glucose Oral Gel 15 Gm Of Glucse In 37.5 Gm Tube PO PRN PRN Hypoglycemia Protocol Dextrose 1,000 mls @ 100 mls/hr 02/09/25 05:45 Dextrose 5% 1,000 Ml IVPB PRN PRN Hypoglycemia Protocol Levofloxacin/Dextrose 750 mg in 150 mls @ 100 mls/hr 02/12/25 21:00 02/13/25 20:24 Levaquin 750 Mg/D5w 150 Ml IVPB 100 mls/hr Q24H LAURA Administration Insulin Aspart 2 - 5 units 02/11/25 08:00 02/14/25 09:17 Insulin Aspart (*Bkc) 100 Units/Ml SUB-Q Not Given TIDWM LAURA Protocol Loratadine 10 mg 02/09/25 09:00 02/14/25 09:25 Loratadine 10 Mg Tablet PO 10 mg DAILY LAURA Administration Magnesium Oxide 400 mg 02/09/25 09:00 02/14/25 09:24 Magnesium Oxide 400 Mg Tablet PO 400 mg BID LAURA Administration Melatonin 5 mg 02/09/25 21:00 02/13/25 20:27 Melatonin 5 Mg Tablet PO 5 mg HS LAURA Administration Metoprolol Tartrate 50 mg 02/09/25 09:00 02/14/25 09:25 Metoprolol Tartrate 50 Mg Tab BY MOUTH 50 mg Q12HR LAURA Administration Morphine Sulfate 4 mg 02/09/25 17:03 Morphine Sulfate (*Crx) 4 Mg/Ml Inj IV PUSH Q4H PRN Pain Rated 7-10 Nicotine 1 patch 02/08/25 21:25 02/14/25 09:21 Nicotine (*Pbkc) 14 Mg Patch TRANSDERM 1 patch DAILY LAURA Administration (Paliperidone 3 Mg 1 each 02/12/25 21:00 02/13/25 20:31 Oral Tablet, PO 03/14/25 20:59 1 each Extended Release 24 HS LAURA Administration Hr) Pantoprazole Sodium 40 mg 02/09/25 09:00 02/14/25 09:23 Pantoprazole 40 Mg Tablet BY MOUTH 40 mg DAILY LAURA Administration Paroxetine HCl 40 mg 02/09/25 09:00 02/14/25 09:25 Paroxetine 20 Mg Tablet PO 40 mg DAILY LAURA Administration Pravastatin Sodium 20 mg 02/09/25 21:00 02/13/25 20:27 Pravastatin Sodium 20 Mg Tablet PO 20 mg QHS LAURA Administration Vitamin D 50 mcg 02/09/25 09:00 02/14/25 09:23 Cholecalciferol (Vitamin D3) 25 Mcg (1,000 Units) Tablet PO 50 mcg DAILY LAURA Administration Radiology Results: ITS Impressions Foot X-Ray 02/08/25 17:23 IMPRESSION: 1. Significant erosive changes with pathological fracture of distal fifth metatarsal bone suggestive of osteomyelitis with pathologic fracture. Labs Labs: Laboratory Results - last 24 hr 02/13/25 02/13/25 02/13/25 11:31 16:46 20:27 WBC RBC Hgb Hct MCV MCH MCHC RDW Plt Count MPV POC Capillary Glucose 166 H 138 H 118 H 02/14/25 02/14/25 07:43 09:39 WBC 9.2 RBC 4.13 L Hgb 12.2 L Hct 37.3 L MCV 90.3 MCH 29.5 MCHC 32.7 RDW 14.1 Plt Count 379 H MPV 9.3 POC Capillary Glucose 148 H Quality VTE Prophylaxis VTE prophylaxis: pharmacologic ordered (home eliquis)
[2025-02-14 14:00] VITALS: BP 137/63; PULSE 74; RESP 16; TEMP 36.1; O2SAT 100
--- NOTE | 2025-02-14 14:48 | P.PNGS_ITS ---
Progress Note: A&P Assessment and Plan (1) Diabetic foot infection: Code(s): E11.628 - Type 2 diabetes mellitus with other skin complications; L08.9 - Local infection of the skin and subcutaneous tissue, unspecified Status: Acute Assessment and Plan: * POD5 s/p I&D of R lateral foot abscess and amputation of R 5th toe and metatarsal head. Wound vac dressing changed today. Wound appears to be healing well with some areas of granulation tissue forming. * Surgically stable for discharge from our standpoint when he has placement. CC working on discharge to [facility]. Wound VAC will be continued at [facility] and we will set him up for a f/u with Dr. Delgado in the wound clinic in 1 week after discharge. Continue antibiotics per ID recommendations. (2) Osteomyelitis: Code(s): M86.9 - Osteomyelitis, unspecified Status: Acute Assessment and Plan: * Continue antibiotics per ID recommendations Plan Discussed patient's case and plan of care with Dr. Delgado. Subjective Subjective Date/Time Seen: 02/14/25 14:48 Post Op day: 5 (Incision and drainage of right foot abscess with transmetatarsal amputation of right 5th toe.) Interval history: No acute changes overnight. No specific complaints. Patient seen with wound care nurses for wound vac change. CC reports pt accepted to [facility] and awaiting insurance auth. Exam Narrative: Right foot wound vac removed. The 5th to amputation measures 5 x 6 x 1 cm with a small area of dusky pale tissue at the base of the wound near the metatarsal, but no purulent drainage or necrotic tissue. There is some areas of pink granulating tissue forming in the wound bed. No surrounding erythema or swelling. Minimal serous drainage in the wound vac canister. Able to wiggle other toes. Right foot is warm. Objective Data Vital Signs Vital Signs: Vital Signs - 24 hr 02/13/25 20:31 02/13/25 21:47 02/13/25 22:53 Temperature 97.3 F L Pulse Rate 80 82 75 Respiratory Rate 20 18 20 Blood Pressure 145/81 H Pulse Oximetry 98 100 95 Oxygen Delivery Room Air CPAP Fraction of Inspired Oxygen 21 02/14/25 06:00 02/14/25 08:00 Temperature 97.1 F L Pulse Rate 92 Respiratory Rate 20 Blood Pressure 138/70 Pulse Oximetry 96 Oxygen Delivery CPAP Fraction of Inspired Oxygen Intake/Output Intake/Output: Intake & Output 02/11/25 02/12/25 02/13/25 02/14/25 23:59 23:59 23:59 23:59 Intake Total 1975 5212 9830 858 Balance 1975 6539 1783 616 Meds/Results Medications: Active Medications Generic Name Dose Route Start Last Admin Trade Name Freq PRN Reason Stop Dose Admin Acetaminophen 650 mg 02/08/25 20:45 Acetaminophen 325 Mg Tablet PO Q4H PRN Mild Pain (1-3) or Fever Hydrocodone Bitart/Acetaminophen 1 tab 02/09/25 12:22 02/12/25 20:16 Hydrocodone/Acetaminophen (*Crx) 5-325 Mg Tablet PO 1 tab Q4H PRN Administration Pain Rated 4-6 Hydrocodone Bitart/Acetaminophen 1 tab 02/09/25 12:22 Hydrocodone/Acetaminophen (*Crx) 7.5-325 Mg Tablet PO Q4H PRN Pain Rated 7-10 Albuterol 2 puff 02/09/25 04:10 Albuterol Sulfate (*Sp) Aerosol 1 Puff INHALATION Q6HRT PRN SHORTNESS OF BREATH/WHEEZING Apixaban 5 mg 02/11/25 09:00 02/14/25 09:24 Apixaban 5 Mg Tablet PO 5 mg Q12HR LAURA Administration Aspirin 81 mg 02/11/25 09:00 02/14/25 09:23 Aspirin 81 Mg Enteric Tablet PO 81 mg QAM LAURA Administration Bupropion HCl 150 mg 02/09/25 09:00 02/14/25 09:24 Bupropion Hcl Sr (12 Hr) 150 Mg Tab PO 150 mg DAILY LAURA Administration Clonazepam 0.5 mg 02/09/25 04:06 02/12/25 20:16 Clonazepam (*Crx) 0.5 Mg Tablet PO 0.5 mg BID PRN Administration Anxiety Cyanocobalamin 500 mcg 02/09/25 09:00 02/14/25 09:25 Cyanocobalamin 500 Mcg Tablet PO 03/11/25 08:59 500 mcg DAILY LAURA Administration Dextrose 12.5 gm 02/09/25 05:45 Dextrose 50% 25 Gm/50 Ml Syringe IV PUSH PRN PRN Hypoglycemia Protocol Fentanyl Citrate 25 mcg 02/09/25 15:38 Fentanyl Citrate Inj (*Crx) 100 Mcg/2 Ml Vial IV PUSH Q2M PRN Pain Gabapentin 300 mg 02/09/25 06:00 02/14/25 13:24 Gabapentin 300 Mg Capsule PO 300 mg Q8HR LAURA Administration Glucagon 1 mg 02/09/25 04:10 Glucagon For Inj 1 Mg Vial IM PRN PRN Hypoglycemia Protocol Glucose 15 gm 02/09/25 04:10 Glucose Oral Gel 15 Gm Of Glucse In 37.5 Gm Tube PO PRN PRN Hypoglycemia Protocol Dextrose 1,000 mls @ 100 mls/hr 02/09/25 05:45 Dextrose 5% 1,000 Ml IVPB PRN PRN Hypoglycemia Protocol Levofloxacin/Dextrose 750 mg in 150 mls @ 100 mls/hr 02/12/25 21:00 02/13/25 20:24 Levaquin 750 Mg/D5w 150 Ml IVPB 100 mls/hr Q24H LAURA Administration Insulin Aspart 2 - 5 units 02/11/25 08:00 02/14/25 11:56 Insulin Aspart (*Bkc) 100 Units/Ml SUB-Q Not Given TIDWM LAURA Protocol Loratadine 10 mg 02/09/25 09:00 02/14/25 09:25 Loratadine 10 Mg Tablet PO 10 mg DAILY LAURA Administration Magnesium Oxide 400 mg 02/09/25 09:00 02/14/25 09:24 Magnesium Oxide 400 Mg Tablet PO 400 mg BID LAURA Administration Melatonin 5 mg 02/09/25 21:00 02/13/25 20:27 Melatonin 5 Mg Tablet PO 5 mg HS LAURA Administration Metoprolol Tartrate 50 mg 02/09/25 09:00 02/14/25 09:25 Metoprolol Tartrate 50 Mg Tab BY MOUTH 50 mg Q12HR LAURA Administration Morphine Sulfate 4 mg 02/09/25 17:03 Morphine Sulfate (*Crx) 4 Mg/Ml Inj IV PUSH Q4H PRN Pain Rated 7-10 Nicotine 1 patch 02/08/25 21:25 02/14/25 09:21 Nicotine (*Pbkc) 14 Mg Patch TRANSDERM 1 patch DAILY LAURA Administration (Paliperidone 3 Mg 1 each 02/12/25 21:00 02/13/25 20:31 Oral Tablet, PO 03/14/25 20:59 1 each Extended Release 24 HS LAURA Administration Hr) Pantoprazole Sodium 40 mg 02/09/25 09:00 02/14/25 09:23 Pantoprazole 40 Mg Tablet BY MOUTH 40 mg DAILY LAURA Administration Paroxetine HCl 40 mg 02/09/25 09:00 02/14/25 09:25 Paroxetine 20 Mg Tablet PO 40 mg DAILY LAURA Administration Pravastatin Sodium 20 mg 02/09/25 21:00 02/13/25 20:27 Pravastatin Sodium 20 Mg Tablet PO 20 mg QHS LAURA Administration Vitamin D 50 mcg 02/09/25 09:00 02/14/25 09:23 Cholecalciferol (Vitamin D3) 25 Mcg (1,000 Units) Tablet PO 50 mcg DAILY LAURA Administration Radiology Results: ITS Impressions Foot X-Ray 02/08/25 17:23 IMPRESSION: 1. Significant erosive changes with pathological fracture of distal fifth metatarsal bone suggestive of osteomyelitis with pathologic fracture. Labs Labs: Laboratory Results - last 24 hr 02/13/25 02/13/25 02/14/25 16:46 20:27 07:43 WBC RBC Hgb Hct MCV MCH MCHC RDW Plt Count MPV POC Capillary Glucose 138 H 118 H 148 H 02/14/25 02/14/25 09:39 11:28 WBC 9.2 RBC 4.13 L Hgb 12.2 L Hct 37.3 L MCV 90.3 MCH 29.5 MCHC 32.7 RDW 14.1 Plt Count 379 H MPV 9.3 POC Capillary Glucose 131 H
--- NOTE | 2025-02-14 17:19 | P.PNINF_ITS ---
Progress Note: A&P Assessment and Plan (1) Diabetic foot infection: Code(s): E11.628 - Type 2 diabetes mellitus with other skin complications; L08.9 - Local infection of the skin and subcutaneous tissue, unspecified Status: Acute (2) Osteomyelitis: Code(s): M86.9 - Osteomyelitis, unspecified Status: Acute Assessment and Plan: ASSESSMENT: 1. Right foot, plantar/lateral foot wound with abscess and osteomyelitis/fracture of 5th metatarsal head s/p I&D with partial 5th ray resection on 01/09/25; abscess cx with PSAR and enterococcus; Path margin positive 2. DM 3. Afib, CAD, HTN, HL, obesity, COPD 4. anxiety, depression, schizophrenia RECOMMENDATIONS: -enterococcus is likely contaminant--PSAR is likely real pathogen -Path margin positive -continue levaquin (day3)--Current QTC is 446--plan to repeat EKG on Wednesday to make sure QTC is not becoming prolonged -f/u on blood cxs--so far NGTD -d/w wound care nurse-->wound granular -will need course of abx x 6 weeks for residual osteomyelitis--can try po levaquin given good bioavailability. If QTc prolonged on the levaquin, will need IV course with picc d/w nursing staff Pt was seen via video telehealth consultation with the assistance of staff. Chart, data and patient info reviewed. Patient was located at [facility] while I was in my [place] office. Pt gave consent. Subjective Date/time seen: 02/14/25 17:19 Interval history: no high temps no leukocytosis Exam Narrative: on the comode on room air, non-toxic Objective Data Vital Signs Vital Signs: Vital Signs - 24 hr 02/13/25 20:31 02/13/25 21:47 02/13/25 22:53 Temperature 97.3 F L Pulse Rate 80 82 75 Respiratory Rate 20 18 20 Blood Pressure 145/81 H Pulse Oximetry 98 100 95 Oxygen Delivery Room Air CPAP Fraction of Inspired Oxygen 21 02/14/25 06:00 02/14/25 08:00 02/14/25 14:00 Temperature 97.1 F L 97.0 F L Pulse Rate 92 74 Respiratory Rate 20 16 Blood Pressure 138/70 137/63 Pulse Oximetry 96 100 Oxygen Delivery CPAP Fraction of Inspired Oxygen 02/14/25 14:47 02/14/25 14:57 Temperature Pulse Rate Respiratory Rate Blood Pressure Pulse Oximetry Oxygen Delivery Room Air Room Air Fraction of Inspired Oxygen Intake/Output Intake/Output: Intake & Output 02/11/25 02/12/25 02/13/25 02/14/25 23:59 23:59 23:59 23:59 Intake Total 1975 2550 1878 1095 Balance 19750 1878 1095 Meds/Results Medications: Active Medications Generic Name Dose Route Start Last Admin Trade Name Freq PRN Reason Stop Dose Admin Acetaminophen 650 mg 02/08/25 20:45 Acetaminophen 325 Mg Tablet PO Q4H PRN Mild Pain (1-3) or Fever Hydrocodone Bitart/Acetaminophen 1 tab 02/09/25 12:22 02/12/25 20:16 Hydrocodone/Acetaminophen (*Crx) 5-325 Mg Tablet PO 1 tab Q4H PRN Administration Pain Rated 4-6 Hydrocodone Bitart/Acetaminophen 1 tab 02/09/25 12:22 Hydrocodone/Acetaminophen (*Crx) 7.5-325 Mg Tablet PO Q4H PRN Pain Rated 7-10 Albuterol 2 puff 02/09/25 04:10 Albuterol Sulfate (*Sp) Aerosol 1 Puff INHALATION Q6HRT PRN SHORTNESS OF BREATH/WHEEZING Apixaban 5 mg 02/11/25 09:00 02/14/25 09:24 Apixaban 5 Mg Tablet PO 5 mg Q12HR LAURA Administration Aspirin 81 mg 02/11/25 09:00 02/14/25 09:23 Aspirin 81 Mg Enteric Tablet PO 81 mg QAM LAURA Administration Bupropion HCl 150 mg 02/09/25 09:00 02/14/25 09:24 Bupropion Hcl Sr (12 Hr) 150 Mg Tab PO 150 mg DAILY LAURA Administration Clonazepam 0.5 mg 02/09/25 04:06 02/12/25 20:16 Clonazepam (*Crx) 0.5 Mg Tablet PO 0.5 mg BID PRN Administration Anxiety Cyanocobalamin 500 mcg 02/09/25 09:00 02/14/25 09:25 Cyanocobalamin 500 Mcg Tablet PO 03/11/25 08:59 500 mcg DAILY LAURA Administration Dextrose 12.5 gm 02/09/25 05:45 Dextrose 50% 25 Gm/50 Ml Syringe IV PUSH PRN PRN Hypoglycemia Protocol Fentanyl Citrate 25 mcg 02/09/25 15:38 Fentanyl Citrate Inj (*Crx) 100 Mcg/2 Ml Vial IV PUSH Q2M PRN Pain Gabapentin 300 mg 02/09/25 06:00 02/14/25 13:24 Gabapentin 300 Mg Capsule PO 300 mg Q8HR LAURA Administration Glucagon 1 mg 02/09/25 04:10 Glucagon For Inj 1 Mg Vial IM PRN PRN Hypoglycemia Protocol Glucose 15 gm 02/09/25 04:10 Glucose Oral Gel 15 Gm Of Glucse In 37.5 Gm Tube PO PRN PRN Hypoglycemia Protocol Dextrose 1,000 mls @ 100 mls/hr 02/09/25 05:45 Dextrose 5% 1,000 Ml IVPB PRN PRN Hypoglycemia Protocol Levofloxacin/Dextrose 750 mg in 150 mls @ 100 mls/hr 02/12/25 21:00 02/13/25 20:24 Levaquin 750 Mg/D5w 150 Ml IVPB 100 mls/hr Q24H LAURA Administration Insulin Aspart 2 - 5 units 02/11/25 08:00 02/14/25 17:11 Insulin Aspart (*Bkc) 100 Units/Ml SUB-Q Not Given TIDWM LAURA Protocol Loratadine 10 mg 02/09/25 09:00 02/14/25 09:25 Loratadine 10 Mg Tablet PO 10 mg DAILY LAURA Administration Magnesium Oxide 400 mg 02/09/25 09:00 02/14/25 09:24 Magnesium Oxide 400 Mg Tablet PO 400 mg BID LAURA Administration Melatonin 5 mg 02/09/25 21:00 02/13/25 20:27 Melatonin 5 Mg Tablet PO 5 mg HS LAURA Administration Metoprolol Tartrate 50 mg 02/09/25 09:00 02/14/25 09:25 Metoprolol Tartrate 50 Mg Tab BY MOUTH 50 mg Q12HR LAURA Administration Morphine Sulfate 4 mg 02/09/25 17:03 Morphine Sulfate (*Crx) 4 Mg/Ml Inj IV PUSH Q4H PRN Pain Rated 7-10 Nicotine 1 patch 02/08/25 21:25 02/14/25 09:21 Nicotine (*Pbkc) 14 Mg Patch TRANSDERM 1 patch DAILY LAURA Administration (Paliperidone 3 Mg 1 each 02/12/25 21:00 02/13/25 20:31 Oral Tablet, PO 03/14/25 20:59 1 each Extended Release 24 HS LAURA Administration Hr) Pantoprazole Sodium 40 mg 02/09/25 09:00 02/14/25 09:23 Pantoprazole 40 Mg Tablet BY MOUTH 40 mg DAILY LAURA Administration Paroxetine HCl 40 mg 02/09/25 09:00 02/14/25 09:25 Paroxetine 20 Mg Tablet PO 40 mg DAILY LAURA Administration Pravastatin Sodium 20 mg 02/09/25 21:00 02/13/25 20:27 Pravastatin Sodium 20 Mg Tablet PO 20 mg QHS LAURA Administration Vitamin D 50 mcg 02/09/25 09:00 02/14/25 09:23 Cholecalciferol (Vitamin D3) 25 Mcg (1,000 Units) Tablet PO 50 mcg DAILY LAURA Administration Radiology Results: ITS Impressions Foot X-Ray 02/08/25 17:23 IMPRESSION: 1. Significant erosive changes with pathological fracture of distal fifth metatarsal bone suggestive of osteomyelitis with pathologic fracture. Labs Labs: Laboratory Results - last 24 hr 02/13/25 02/14/25 02/14/25 20:27 07:43 09:39 WBC 9.2 RBC 4.13 L Hgb 12.2 L Hct 37.3 L MCV 90.3 MCH 29.5 MCHC 32.7 RDW 14.1 Plt Count 379 H MPV 9.3 POC Capillary Glucose 118 H 148 H 02/14/25 02/14/25 11:28 17:07 WBC RBC Hgb Hct MCV MCH MCHC RDW Plt Count MPV POC Capillary Glucose 131 H 122 H
[2025-02-14] MEDS: levoFLOXacin 750 MG/D5W 150 ML 750 MG/150 ML BAG 100 MG IVPB (20:18)
[2025-02-14] MEDS: MELATONIN 5 MG TABLET PO (20:19)
[2025-02-14] MEDS: PRAVASTATIN SODIUM 20 MG TABLET PO (20:19)
[2025-02-14 21:30] VITALS: BP 108/71; PULSE 82; RESP 18; TEMP 36.9; O2SAT 99
--- NOTE | 2025-02-15 02:42 | PC.NURSE ---
monica verduzco received and placed on pt right foot. pt states he likes this one better and it helps.
[2025-02-15] MEDS: GABAPENTIN 300 MG CAPSULE PO ×3 (05:15→20:39)
[2025-02-15 06:00] VITALS: BP 109/62; PULSE 82; RESP 17; TEMP 36.6; O2SAT 96
--- NOTE | 2025-02-15 08:00 | ECG_ITS ---
Test Date: 2025-02-15 07:59:35 Measurements Intervals [place] Rate: 80 P: 0 MI: 0 QRS: -11 QRSD: 108 T: -3 QT: 404 QTc: 469 Interpretive Statements ATRIAL FIBRILLATION MODERATE INTRAVENTRICULAR CONDUCTION DELAY [105+ ms QRS DURATION, 80+ ms Q/S IN V1/V2, NO Q AND 60+ ms R IN I/aVL/V5/V6] MODERATE ST DEPRESSION [0.05+ mV ST DEPRESSION] ABNORMAL ECG Compared to ECG 02/09/2025 14:21:31 No significant changes Electronically Signed On 02-15-2025 08:54:04 BINGO USHER by Ivan Braun M.D.
--- NOTE | 2025-02-15 08:03 | P.PNIM_ITS ---
Progress Note: A&P Assessment and Plan (1) Osteomyelitis: Code(s): M86.9 - Osteomyelitis, unspecified Status: Acute Assessment and Plan: Significant erosive changes with pathological fracture of distal fifth me tatarsal bone suggestive of osteomyelitis with pathologic fracture.s/p incision and drainage of right foot abscess with transmetatarsal amputation of right 5th toe per Dr. Delgado on 02/09 -surgery following -->Surgery signed off today, will f/u with Dr. Delgado in x1 week after discharge. To go to SNF with wound vac -Eliquis and aspirin restarted -blood cultures are pending, NGTD Wound culture on 02/09 resulted as enterococcus faecalis (which is likely contaminant as the wound had no drainage at the time) and Pseudomonas - PSAR likely real pathogen Wound VAC in place ID consulted for antibiotic guidance continue levofloxacin, DC Zofran and other QTC prolonging medications --Repeat EKG today yielding QTc 469, repeat tomorrow per ID -PT/OT consult weight-bearing through heel of right foot, SNF at discharge, pending auth (2) Type 2 DM with CKD stage 3 and hypertension: Code(s): E11.22 - Type 2 diabetes mellitus with diabetic chronic kidney disease; I12.9 - Hypertensive chronic kidney disease with stage 1 through stage 4 chronic kidney disease, or unspecified chronic kidney disease; N18.30 - Chronic kidney disease, stage 3 unspecified Status: Chronic Assessment and Plan: -accu checks -avoid hypoglycemia -Hgba1c 02/09/25 6.6% -SSI low dose with meals (3) Peripheral neuropathy: Code(s): G62.9 - Polyneuropathy, unspecified Status: Acute Assessment and Plan: -continue with gabapentin, GFR >60 (4) COPD (chronic obstructive pulmonary disease): Code(s): J44.9 - Chronic obstructive pulmonary disease, unspecified Status: Acute Assessment and Plan: -continue with inhaler (5) CASI on CPAP: Code(s): G47.33 - Obstructive sleep apnea (adult) (pediatric); Z99.89 - Dependence on other enabling machines and devices Status: Chronic Assessment and Plan: -auto titrate CPAP/BiPAP home settings. (6) Tobacco abuse: Code(s): Z72.0 - Tobacco use Status: Chronic Assessment and Plan: -smoking cessation has been initiated. Continue nicotine patch (7) Hypertension: Code(s): I10 - Essential (primary) hypertension Status: Acute Assessment and Plan: -continue with metoprolol (8) Anxiety: Code(s): F41.9 - Anxiety disorder, unspecified Status: Acute Assessment and Plan: -continue with hydroxyzine, clonazepam, and paroxetine (9) Depression: Code(s): F32.A - Depression, unspecified Status: Acute Assessment and Plan: -continue with bupropion (10) Schizophrenia: Code(s): F20.9 - Schizophrenia, unspecified Status: Acute Assessment and Plan: -paliperidone is nonformulary. Requesting family bring in from home Plan Continue to treat with IV abx for osteomyelitis, pending ID recs for oral transition, pending SNF placement auth Subjective Date/time seen: 02/15/25 4157 Interval history: Pt sitting up on side of the bed comfortably upon my arrival. Pt with no complaints today. Reiterated plan for ID coverage of Abx and changing to oral soon as well as SNF placement upon acceptance. Pt reports pain is well managed. Review of Systems Review of Systems: 12 systems were reviewed and are negativ e except for as per HPI. Constitutional: Constitutional: Reports as per HPI and Reports no additional constitutional complaints Eyes: Eyes: Reports as per HPI and Reports no additional eye complaints ENT: Reports system reviewed and no additional complaints, except as documented and Reports Normal hearing present Cardiovascular: Cardiovascular: Reports no additional cardiovascular complaints Respiratory: Respiratory: Reports as per HPI and Reports no additional respiratory complaints Gastrointestinal: Gastrointestinal: Reports as per HPI and Reports no additional gastrointestinal complaints Musculoskeletal: Musculoskeletal: Reports no additional musculoskeletal complaints Integumentary/Breasts: Skin/Breast: Reports system reviewed and no additional complaints, except as docu Neurologic: Reports system reviewed and no additional complaints, except as documented and Reports Normal hearing present Psychiatric: Psychiatric: Reports no additional psychiatric complaints and Reports as per HPI Hematologic/Lymphatic: Hematologic/Lymphatic: Reports no additional hematologic/lymphatic complaints Allergic/Immunologic: Allergic/Immunologic: Reports no additional allergic/immunologic complaints Exam Const: General: cooperative, comfortable, no acute distress, well developed, awake, Physically active and well nourished Nutritional Appearance: well nourished Orientation/consciousness: patient oriented x3 HENMT: Head: normal to inspection, normocephalic and atraumatic Ears: hearing grossly normal bilaterally and external ears normal Eyes: General: appearance normal, both eyes and all related structures Alignment and Position: alignment normal Periorbital: periorbital findings normal Pupils: Equal, round and reactive pupils present Neck: Neck: normal visual inspection and full ROM Chest: Chest palpation & inspection: normal inspection of the chest Resp: Effort & Inspection: normal respiratory effort Auscultation: clear to auscultation bilaterally Cardio: Palpation: normal PMI Rate: regular rate Rhythm: abnormal rhythm Heart sounds: S1 normal heart sound present and S2 normal heart sound present Peripheral pulses: Peripheral pulses 2+ throughout Other: Patient in atrial fibrillation GI: Inspection: normal to inspection Auscultation: normal bowel sounds Rectal Exam: deferred Skin: General skin exam: normal color Lesions: no lesions Rashes: no rashes Trauma: no lacerations or abrasions Wounds: no wounds Hair: normal Nails: normal Other: R pinky toe with wound vac applied, surrounding skin consistent with ethnicity. No feeling to either foot. Valles boot on R foot. -walking boot is intact to the left foot and I did not assess the left foot. Neuro: General: patient oriented x3 Cranial nerves: Yes Equal, round and reactive pupils present and Yes Normal hearing present Cognition (Neuro): normal cognition Speech: normal speech Motor exam (neuro): Normal motor muscle tone present throughout Sensory Exam: normal sensation Extrem: General: normal to inspection and normal exam except as noted Right lower extremity: normal to inspection Left lower extremity: normal to inspection Other: Subjective paraesthesias to bilateral feet, unable to feel palpation upon my exam Psych: Speech and movement: Normal speech and movement present Affect: normal affect Attitude: cooperative Objective Data Vital Signs Vital Signs: Vital Signs - 24 hr 02/14/25 14:00 02/14/25 14:47 02/14/25 14:57 Temperature 97.0 F L Pulse Rate 74 Respiratory Rate 16 Blood Pressure 137/63 Pulse Oximetry 100 Oxygen Delivery Room Air Room Air 02/14/25 21:30 02/15/25 06:00 Temperature 98.4 F 97.9 F Pulse Rate 82 82 Respiratory Rate 18 17 Blood Pressure 108/71 109/62 Pulse Oximetry 99 96 Oxygen Delivery Intake/Output Intake/Output: Intake & Output 02/12/25 02/13/25 02/14/25 02/15/25 23:59 23:59 23:59 23:59 Intake Total 2550 2027 1539 350 Balance 2550 2027 1539 350 Meds/Results Medications: Active Medications Generic Name Dose Route Start Last Admin Trade Name Freq PRN Reason Stop Dose Admin Acetaminophen 650 mg 02/08/25 20:45 Acetaminophen 325 Mg Tablet PO Q4H PRN Mild Pain (1-3) or Fever Hydrocodone Bitart/Acetaminophen 1 tab 02/09/25 12:22 02/12/25 20:16 Hydrocodone/Acetaminophen (*Crx) 5-325 Mg Tablet PO 1 tab Q4H PRN Administration Pain Rated 4-6 Hydrocodone Bitart/Acetaminophen 1 tab 02/09/25 12:22 Hydrocodone/Acetaminophen (*Crx) 7.5-325 Mg Tablet PO Q4H PRN Pain Rated 7-10 Albuterol 2 puff 02/09/25 04:10 Albuterol Sulfate (*Sp) Aerosol 1 Puff INHALATION Q6HRT PRN SHORTNESS OF BREATH/WHEEZING Apixaban 5 mg 02/11/25 09:00 02/14/25 20:19 Apixaban 5 Mg Tablet PO 5 mg Q12HR LAURA Administration Aspirin 81 mg 02/11/25 09:00 02/14/25 09:23 Aspirin 81 Mg Enteric Tablet PO 81 mg QAM LAURA Administration Bupropion HCl 150 mg 02/09/25 09:00 02/14/25 09:24 Bupropion Hcl Sr (12 Hr) 150 Mg Tab PO 150 mg DAILY LAURA Administration Clonazepam 0.5 mg 02/09/25 04:06 02/12/25 20:16 Clonazepam (*Crx) 0.5 Mg Tablet PO 0.5 mg BID PRN Administration Anxiety Cyanocobalamin 500 mcg 02/09/25 09:00 02/14/25 09:25 Cyanocobalamin 500 Mcg Tablet PO 03/11/25 08:59 500 mcg DAILY LAURA Administration Dextrose 12.5 gm 02/09/25 05:45 Dextrose 50% 25 Gm/50 Ml Syringe IV PUSH PRN PRN Hypoglycemia Protocol Fentanyl Citrate 25 mcg 02/09/25 15:38 Fentanyl Citrate Inj (*Crx) 100 Mcg/2 Ml Vial IV PUSH Q2M PRN Pain Gabapentin 300 mg 02/09/25 06:00 02/15/25 05:15 Gabapentin 300 Mg Capsule PO 300 mg Q8HR LAURA Administration Glucagon 1 mg 02/09/25 04:10 Glucagon For Inj 1 Mg Vial IM PRN PRN Hypoglycemia Protocol Glucose 15 gm 02/09/25 04:10 Glucose Oral Gel 15 Gm Of Glucse In 37.5 Gm Tube PO PRN PRN Hypoglycemia Protocol Dextrose 1,000 mls @ 100 mls/hr 02/09/25 05:45 Dextrose 5% 1,000 Ml IVPB PRN PRN Hypoglycemia Protocol Levofloxacin/Dextrose 750 mg in 150 mls @ 100 mls/hr 02/12/25 21:00 02/14/25 20:18 Levaquin 750 Mg/D5w 150 Ml IVPB 100 mls/hr Q24H LAURA Administration Insulin Aspart 2 - 5 units 02/11/25 08:00 02/14/25 17:11 Insulin Aspart (*Bkc) 100 Units/Ml SUB-Q Not Given TIDWM LAURA Protocol Loratadine 10 mg 02/09/25 09:00 02/14/25 09:25 Loratadine 10 Mg Tablet PO 10 mg DAILY LAURA Administration Magnesium Oxide 400 mg 02/09/25 09:00 02/14/25 17:23 Magnesium Oxide 400 Mg Tablet PO 400 mg BID LAURA Administration Melatonin 5 mg 02/09/25 21:00 02/14/25 20:19 Melatonin 5 Mg Tablet PO 5 mg HS LAURA Administration Metoprolol Tartrate 50 mg 02/09/25 09:00 02/14/25 20:18 Metoprolol Tartrate 50 Mg Tab BY MOUTH 50 mg Q12HR LAURA Administration Morphine Sulfate 4 mg 02/09/25 17:03 Morphine Sulfate (*Crx) 4 Mg/Ml Inj IV PUSH Q4H PRN Pain Rated 7-10 Nicotine 1 patch 02/08/25 21:25 02/14/25 09:21 Nicotine (*Pbkc) 14 Mg Patch TRANSDERM 1 patch DAILY LARUA Administration (Paliperidone 3 Mg 1 each 02/12/25 21:00 02/14/25 20:20 Oral Tablet, PO 03/14/25 20:59 1 each Extended Release 24 HS LAURA Administration Hr) Pantoprazole Sodium 40 mg 02/09/25 09:00 02/14/25 09:23 Pantoprazole 40 Mg Tablet BY MOUTH 40 mg DAILY LAURA Administration Paroxetine HCl 40 mg 02/09/25 09:00 02/14/25 09:25 Paroxetine 20 Mg Tablet PO 40 mg DAILY LAURA Administration Pravastatin Sodium 20 mg 02/09/25 21:00 02/14/25 20:19 Pravastatin Sodium 20 Mg Tablet PO 20 mg QHS LAURA Administration Vitamin D 50 mcg 02/09/25 09:00 02/14/25 09:23 Cholecalciferol (Vitamin D3) 25 Mcg (1,000 Units) Tablet PO 50 mcg DAILY LAURA Administration Radiology Results: ITS Impressions Foot X-Ray 02/08/25 17:23 IMPRESSION: 1. Significant erosive changes with pathological fracture of distal fifth metatarsal bone suggestive of osteomyelitis with pathologic fracture. Labs Labs: Laboratory Results - last 24 hr 02/14/25 02/14/25 02/14/25 09:39 11:28 17:07 WBC 9.2 RBC 4.13 L Hgb 12.2 L Hct 37.3 L MCV 90.3 MCH 29.5 MCHC 32.7 RDW 14.1 Plt Count 379 H MPV 9.3 POC Capillary Glucose 131 H 122 H 02/14/25 02/15/25 21:02 07:13 WBC RBC Hgb Hct MCV MCH MCHC RDW Plt Count MPV POC Capillary Glucose 144 H 151 H Quality VTE Prophylaxis VTE prophylaxis: pharmacologic ordered (home eliquis)
[2025-02-15] MEDS: NICOTINE (*PBKC) 14 MG PATCH 1 PATCH TRANSDERM (09:19)
[2025-02-15] MEDS: APIXABAN 5 MG TABLET PO ×2 (09:19→20:39)
[2025-02-15] MEDS: ASPIRIN 81 MG ENTERIC TABLET PO (09:19)
[2025-02-15 09:20] VITALS: PULSE 82
[2025-02-15] MEDS: PANTOPRAZOLE 40 MG TABLET BY MOUTH (09:20)
[2025-02-15] MEDS: METOPROLOL TARTRATE 50 MG TAB BY MOUTH ×2 (09:20→20:39)
[2025-02-15] MEDS: CYANOCOBALAMIN 500 MCG TABLET PO (09:20)
[2025-02-15] MEDS: CHOLECALCIFEROL (VITAMIN D3) 25 MCG (1,000 UNITS) TABLET 50 MCG PO (09:20)
[2025-02-15] MEDS: MAGNESIUM OXIDE 400 MG TABLET PO ×2 (09:20→16:49)
[2025-02-15] MEDS: LORATADINE 10 MG TABLET PO (09:20)
[2025-02-15] MEDS: buPROPion HCL SR (12 HR) 150 MG TAB PO (09:20)
[2025-02-15] MEDS: INSULIN ASPART (*BKC) 100 UNITS/ML SUB-Q (11:45)
[2025-02-15 14:00] VITALS: BP 117/60; PULSE 84; RESP 18; TEMP 36.6; O2SAT 98
[2025-02-15] MEDS: PRAVASTATIN SODIUM 20 MG TABLET PO (20:40)
[2025-02-15] MEDS: levoFLOXacin 750 MG/D5W 150 ML 750 MG/150 ML BAG 100 MG IVPB (20:40)
[2025-02-15] MEDS: MELATONIN 5 MG TABLET PO (20:42)
[2025-02-15] MEDS: clonazePAM (*CRX) 0.5 MG TABLET PO (20:48)
[2025-02-15 22:00] VITALS: BP 136/69; PULSE 80; RESP 18; TEMP 36.6; O2SAT 98
[2025-02-16] MEDS: GABAPENTIN 300 MG CAPSULE PO ×3 (04:58→21:08)
[2025-02-16 05:47] LABS: Hematocrit 35.1 % (42.0-52.0); Hemoglobin 11.6 g/dL (14.0-18.0); Immature Granulocyte Percent A 0.3 % (0-0.5); Lymphocytes Absolute Auto 2.79 K/mm3 (0.9-3.2); Mean Corpuscular HGB Conc 33.0 g/dl (32-36); Mean Corpuscular Hemoglobin 30.1 pg (26-34); Mean Corpuscular Volume 90.9 fl (80-100); Nucleated Red Blood Cells Absolute Auto 0.000 K/mm3 (0.0-0.012); Nucleated Red Blood Cells Perc 0.0 % (0.0-0.2); Platelet Count Result 333 k/mm3 (150-375); Red Blood Count 3.86 M/mm3 (4.6-6.20); White Blood Count 10.0 K/mm3 (4.5-10.0)
[2025-02-16 05:59] VITALS: BP 127/74; PULSE 72; RESP 16; TEMP 36.4; O2SAT 97
[2025-02-16 06:11] LABS: Alanine Aminotransferase 23 U/L (6-50); Albumin Level 3.4 g/dL (3.5-5.1); Alkaline Phosphatase 60 U/L (38-126); Anion Gap 5 mmol/L (4-12); Aspartate Amino Transferase 28 U/L (17-59); Bilirubin,Total 0.4 mg/dL (0.2-1.3); Blood Urea Nitrogen 19 mg/dL (9-20); Calcium 9.3 mg/dL (8.4-10.2); Carbon Dioxide 27 mmol/L (22-30); Chloride 104 mmol/L (98-107); Estimated CRCL calculation 79 ml/min; Estimated Glomerular Filt Rate > 60; Glucose 120 mg/dL (65-110); Potassium 4.0 mmol/L (3.4-5.0); Sodium 136 mmol/L (137-145); Total Protein 6.5 g/dL (6.3-8.2)
--- NOTE | 2025-02-16 08:00 | ECG_ITS ---
Test Date: 2025-02-16 08:17:51 Measurements Intervals [place] Rate: 93 P: 0 [place]: 0 QRS: 8 QRSD: 109 T: 41 QT: 377 QTc: 471 Interpretive Statements ATRIAL FIBRILLATION MODERATE INTRAVENTRICULAR CONDUCTION DELAY [105+ ms QRS DURATION, 80+ ms Q/S IN V1/V2, NO Q AND 60+ ms R IN I/aVL/V5/V6] ABNORMAL ECG Compared to ECG 02/15/2025 07:59:35 No significant changes Electronically Signed On 02-16-2025 13:21:48 IP LITIGATION PARALEGAL by Warner Polanco M.D.
[2025-02-16 08:21] VITALS: PULSE 83
[2025-02-16] MEDS: NICOTINE (*PBKC) 14 MG PATCH 1 PATCH TRANSDERM (08:21)
[2025-02-16] MEDS: LORATADINE 10 MG TABLET PO (08:21)
[2025-02-16] MEDS: METOPROLOL TARTRATE 50 MG TAB BY MOUTH ×2 (08:21→21:07)
[2025-02-16] MEDS: MAGNESIUM OXIDE 400 MG TABLET PO ×2 (08:21→17:19)
[2025-02-16] MEDS: PANTOPRAZOLE 40 MG TABLET BY MOUTH (08:21)
[2025-02-16] MEDS: CHOLECALCIFEROL (VITAMIN D3) 25 MCG (1,000 UNITS) TABLET 50 MCG PO (08:22)
[2025-02-16] MEDS: ASPIRIN 81 MG ENTERIC TABLET PO (08:22)
[2025-02-16] MEDS: CYANOCOBALAMIN 500 MCG TABLET PO (08:22)
[2025-02-16] MEDS: APIXABAN 5 MG TABLET PO ×2 (08:23→21:06)
[2025-02-16] MEDS: buPROPion HCL SR (12 HR) 150 MG TAB PO (08:24)
--- NOTE | 2025-02-16 08:40 | P.PNIM_ITS ---
Progress Note: A&P Assessment and Plan (1) Osteomyelitis: Code(s): M86.9 - Osteomyelitis, unspecified Status: Acute Assessment and Plan: Significant erosive changes with pathological fracture of distal fifth me tatarsal bone suggestive of osteomyelitis with pathologic fracture.s/p incision and drainage of right foot abscess with transmetatarsal amputation of right 5th toe per Dr. Delgado on 02/09 -surgery following -->Surgery signed off, will f/u with Dr. Delgado in x1 week after discharge. To go to SNF with wound vac -->Wound vac dressing changed today -Eliquis and aspirin restarted -BC with no growth Wound culture on 02/09 resulted as enterococcus faecalis (which is likely contaminant as the wound had no drainage at the time) and Pseudomonas - PSAR likely real pathogen Wound VAC in place ID consulted for antibiotic guidance continue levofloxacin, DC Zofran and other QTC prolonging medications --Repeat EKG today yielding QTc 471 (yesterday 469) -PT/OT consult weight-bearing through heel of right foot, SNF at discharge, pending auth (2) Type 2 DM with CKD stage 3 and hypertension: Code(s): E11.22 - Type 2 diabetes mellitus with diabetic chronic kidney disease; I12.9 - Hypertensive chronic kidney disease with stage 1 through stage 4 chronic kidney disease, or unspecified chronic kidney disease; N18.30 - Chronic kidney disease, stage 3 unspecified Status: Chronic Assessment and Plan: -accu checks -avoid hypoglycemia -Hgba1c 02/09/25 6.6% -SSI low dose with meals (3) Peripheral neuropathy: Code(s): G62.9 - Polyneuropathy, unspecified Status: Acute Assessment and Plan: -continue with gabapentin, GFR >60 (4) COPD (chronic obstructive pulmonary disease): Code(s): J44.9 - Chronic obstructive pulmonary disease, unspecified Status: Acute Assessment and Plan: -continue with inhaler (5) CASI on CPAP: Code(s): G47.33 - Obstructive sleep apnea (adult) (pediatric); Z99.89 - Dependence on other enabling machines and devices Status: Chronic Assessment and Plan: -auto titrate CPAP/BiPAP home settings. (6) Tobacco abuse: Code(s): Z72.0 - Tobacco use Status: Chronic Assessment and Plan: -smoking cessation has been initiated. Continue nicotine patch (7) Hypertension: Code(s): I10 - Essential (primary) hypertension Status: Acute Assessment and Plan: -continue with metoprolol (8) Anxiety: Code(s): F41.9 - Anxiety disorder, unspecified Status: Acute Assessment and Plan: -continue with hydroxyzine, clonazepam, and paroxetine (9) Depression: Code(s): F32.A - Depression, unspecified Status: Acute Assessment and Plan: -continue with bupropion (10) Schizophrenia: Code(s): F20.9 - Schizophrenia, unspecified Status: Acute Assessment and Plan: -paliperidone is nonformulary. Requesting family bring in from home Plan Continue to treat with IV abx for osteomyelitis, pending ID recs for oral transition, pending SNF placement auth Time Spent With Patient Time: 45 Subjective Date/time seen: 02/16/25 1132 Interval history: Pt sitting up in chair comfortably upon my arrival. Pt with no complaints today other than his chronic neuropathy in his feet. Reiterated plan for ID coverage of Abx (pending QTc maintenance) and changing to oral soon if able as well as SNF placement upon acceptance. Pt reports pain is well managed. Review of Systems Review of Systems: 12 systems were reviewed and are negativ e except for as per HPI. Constitutional: Constitutional: Reports as per HPI and Reports no additional constitutional complaints Eyes: Eyes: Reports as per HPI and Reports no additional eye complaints ENT: Reports system reviewed and no additional complaints, except as documented and Reports Normal hearing present Cardiovascular: Cardiovascular: Reports no additional cardiovascular complaints Respiratory: Respiratory: Reports as per HPI and Reports no additional respiratory complaints Gastrointestinal: Gastrointestinal: Reports as per HPI and Reports no additional gastrointestinal complaints Musculoskeletal: Musculoskeletal: Reports no additional musculoskeletal complaints Integumentary/Breasts: Skin/Breast: Reports system reviewed and no additional complaints, except as docu Neurologic: Reports system reviewed and no additional complaints, except as documented and Reports Normal hearing present Psychiatric: Psychiatric: Reports no additional psychiatric complaints and Reports as per HPI Hematologic/Lymphatic: Hematologic/Lymphatic: Reports no additional hematologic/lymphatic complaints Allergic/Immunologic: Allergic/Immunologic: Reports no additional allergic/immunologic complaints Exam Narrative: General: well appearing, appears stated age. HEENT: normocephalic, atraumatic. Mucous membranes moist. EOMI, PERRLA Respiratory: clear bilaterally. No rales/rhonic/wheezes. Cardiovascular: Regular rate and rhythm, normal S1-S2. No murmurs, rubs, or clicks. Abdomen: Soft, round, no pulsatile masses, nondistended and nontender. No rebound, no guarding. Bowel sounds present to all four quadrants. Extremities: No cyanosis, clubbing, or edema present. Neuro: Alert and orientated x 4. PERRLA. Skin: Warm, dry, and intact, without rash, erythema, or lesion. Right foot with wound VAC suction intact Psych: pleasant, cooperative, normal speech, normal affect, no hallucinations, no dysarthia Const: General: cooperative, comfortable, no acute distress, well developed, awake, Physically active, average body habitus and well nourished Nutritional Appearance: average body habitus and well nourished Orientation/co nsciousness: oriented to person, oriented to place, oriented to time and patient oriented x3 HENMT: Head: normal to inspection, No palpable skull fracture present, normocephalic, atraumatic and abrasion Ears: hearing grossly normal bilaterally and external ears normal Eyes: General: appearance normal, both eyes and all related structures Alignment and Position: alignment normal Periorbital: periorbital findings normal Eyelids: eyelids normal Pupils: Equal, round and reactive pupils present Neck: Neck: normal visual inspection, full ROM and no lymphadenopathy Chest: Chest palpation & inspection: normal inspection of the chest Resp: Effort & Inspection: normal respiratory effort Auscultation: clear to auscultation bilaterally Cardio: Palpation: normal PMI Rate: regular rate Rhythm: abnormal rhythm Heart sounds: S1 normal heart sound present and S2 normal heart sound present Peripheral pulses: Peripheral pulses 2+ throughout Other: Patient in atrial fibrillation GI: Inspection: normal to inspection Auscultation: normal bowel sounds Rectal Exam: deferred Skin: General skin exam: normal color Lesions: no lesions Rashes: no rashes Trauma: no lacerations or abrasions Wounds: no wounds Hair: normal Nails: normal Other: R pinky toe with wound vac applied, surrounding skin consistent with ethnicity. No feeling to either foot. Valles boot on R foot. -walking boot is intact to the left foot and I did not assess the left foot. Neuro: General: oriented to person, oriented to place, oriented to time and patient oriented x3 Cranial nerves: Yes Equal, round and reactive pupils present and Yes Normal hearing present Cognition (Neuro): normal cognition Speech: normal speech Motor exam (neuro): Normal motor muscle tone present throughout Sensory Exam: normal sensation Extrem: General: normal to inspection and normal exam except as noted Right upper extremity: normal to inspection and shoulder/upper arm Left upper extremity: normal to inspection and shoulder/upper arm Right lower extremity: normal to inspection Left lower extremity: normal to inspection Other: Subjective paraesthesias to bilateral feet, unable to feel palpation upon my exam Psych: Appearance: grossly normal Mental Status: mental status grossly normal Speech and movement: Normal speech and movement present Affect: normal affect Attitude: cooperative Thought process: Normal thought process present Objective Data Vital Signs Vital Signs: Vital Signs - 24 hr 02/15/25 09:20 02/15/25 14:00 02/15/25 22:00 Temperature 97.9 F 97.8 F Pulse Rate 82 84 80 Respiratory Rate 18 18 Blood Pressure 117/60 136/69 Pulse Oximetry 98 98 02/16/25 05:59 02/16/25 08:21 Temperature 97.5 F L Pulse Rate 72 83 Respiratory Rate 16 Blood Pressure 127/74 Pulse Oximetry 97 Intake/Output Intake/Output: Intake & Output 02/13/25 02/14/25 02/15/25 02/16/25 23:59 23:59 23:59 23:59 Intake Total 2027 1688 1070 150 Balance 2027 1688 1070 150 Meds/Results Medications: Active Medications Generic Name Dose Route Start Last Admin Trade Name Freq PRN Reason Stop Dose Admin Acetaminophen 650 mg 02/08/25 20:45 Acetaminophen 325 Mg Tablet PO Q4H PRN Mild Pain (1-3) or Fever Hydrocodone Bitart/Acetaminophen 1 tab 02/09/25 12:22 02/12/25 20:16 Hydrocodone/Acetaminophen (*Crx) 5-325 Mg Tablet PO 1 tab Q4H PRN Administration Pain Rated 4-6 Hydrocodone Bitart/Acetaminophen 1 tab 02/09/25 12:22 Hydrocodone/Acetaminophen (*Crx) 7.5-325 Mg Tablet PO Q4H PRN Pain Rated 7-10 Albuterol 2 puff 02/09/25 04:10 Albuterol Sulfate (*Sp) Aerosol 1 Puff INHALATION Q6HRT PRN SHORTNESS OF BREATH/WHEEZING Apixaban 5 mg 02/11/25 09:00 02/16/25 08:23 Apixaban 5 Mg Tablet PO 5 mg Q12HR LAURA Administration Aspirin 81 mg 02/11/25 09:00 02/16/25 08:22 Aspirin 81 Mg Enteric Tablet PO 81 mg QAM LAURA Administration Bupropion HCl 150 mg 02/09/25 09:00 02/16/25 08:24 Bupropion Hcl Sr (12 Hr) 150 Mg Tab PO 150 mg DAILY LAURA Administration Clonazepam 0.5 mg 02/09/25 04:06 02/15/25 20:48 Clonazepam (*Crx) 0.5 Mg Tablet PO 0.5 mg BID PRN Administration Anxiety Cyanocobalamin 500 mcg 02/09/25 09:00 02/16/25 08:22 Cyanocobalamin 500 Mcg Tablet PO 03/11/25 08:59 500 mcg DAILY LAURA Administration Dextrose 12.5 gm 02/09/25 05:45 Dextrose 50% 25 Gm/50 Ml Syringe IV PUSH PRN PRN Hypoglycemia Protocol Fentanyl Citrate 25 mcg 02/09/25 15:38 Fentanyl Citrate Inj (*Crx) 100 Mcg/2 Ml Vial IV PUSH Q2M PRN Pain Gabapentin 300 mg 02/09/25 06:00 02/16/25 04:58 Gabapentin 300 Mg Capsule PO 300 mg Q8HR LAURA Administration Glucagon 1 mg 02/09/25 04:10 Glucagon For Inj 1 Mg Vial IM PRN PRN Hypoglycemia Protocol Glucose 15 gm 02/09/25 04:10 Glucose Oral Gel 15 Gm Of Glucse In 37.5 Gm Tube PO PRN PRN Hypoglycemia Protocol Dextrose 1,000 mls @ 100 mls/hr 02/09/25 05:45 Dextrose 5% 1,000 Ml IVPB PRN PRN Hypoglycemia Protocol Levofloxacin/Dextrose 750 mg in 150 mls @ 100 mls/hr 02/12/25 21:00 02/15/25 20:40 Levaquin 750 Mg/D5w 150 Ml IVPB 100 mls/hr Q24H LAURA Administration Insulin Aspart 2 - 5 units 02/11/25 08:00 02/15/25 16:49 Insulin Aspart (*Bkc) 100 Units/Ml SUB-Q Not Given TIDWM LAURA Protocol Loratadine 10 mg 02/09/25 09:00 02/16/25 08:21 Loratadine 10 Mg Tablet PO 10 mg DAILY LAURA Administration Magnesium Oxide 400 mg 02/09/25 09:00 02/16/25 08:21 Magnesium Oxide 400 Mg Tablet PO 400 mg BID LAURA Administration Melatonin 5 mg 02/09/25 21:00 02/15/25 20:42 Melatonin 5 Mg Tablet PO 5 mg HS LAURA Administration Metoprolol Tartrate 50 mg 02/09/25 09:00 02/16/25 08:21 Metoprolol Tartrate 50 Mg Tab BY MOUTH 50 mg Q12HR LAURA Administration Morphine Sulfate 4 mg 02/09/25 17:03 Morphine Sulfate (*Crx) 4 Mg/Ml Inj IV PUSH Q4H PRN Pain Rated 7-10 Nicotine 1 patch 02/08/25 21:25 02/16/25 08:21 Nicotine (*Pbkc) 14 Mg Patch TRANSDERM 1 patch DAILY LAURA Administration (Paliperidone 3 Mg 1 each 02/12/25 21:00 02/15/25 20:42 Oral Tablet, PO 03/14/25 20:59 1 each Extended Release 24 HS LAURA Administration Hr) Pantoprazole Sodium 40 mg 02/09/25 09:00 02/16/25 08:21 Pantoprazole 40 Mg Tablet BY MOUTH 40 mg DAILY LAURA Administration Paroxetine HCl 40 mg 02/09/25 09:00 02/16/25 08:23 Paroxetine 20 Mg Tablet PO 40 mg DAILY LAURA Administration Pravastatin Sodium 20 mg 02/09/25 21:00 02/15/25 20:40 Pravastatin Sodium 20 Mg Tablet PO 20 mg QHS LAURA Administration Vitamin D 50 mcg 02/09/25 09:00 02/16/25 08:22 Cholecalciferol (Vitamin D3) 25 Mcg (1,000 Units) Tablet PO 50 mcg DAILY LAURA Administration Radiology Results: ITS Impressions Foot X-Ray 02/08/25 17:23 IMPRESSION: 1. Significant erosive changes with pathological fracture of distal fifth metatarsal bone suggestive of osteomyelitis with pathologic fracture. Labs Labs: Laboratory Results - last 24 hr 02/15/25 02/15/25 02/15/25 11:21 16:16 20:23 WBC RBC Hgb Hct MCV MCH MCHC RDW Plt Count MPV Immature Gran % (Auto) Neut % (Auto) Lymph % (Auto) [place] % (Auto) Eos % (Auto) Baso % (Auto) Lymph # (Auto) [place] # (Auto) Eos # (Auto) Baso # (Auto) Abs Immat Gran (auto) Absolute Neuts (auto) Absolute Nucleated RBC Nucleated RBC % Sodium Potassium Chloride Carbon Dioxide Anion Gap BUN Creatinine Estim Creat Clear Calc Estimated GFR Glucose POC Capillary Glucose 304 H 109 H 163 H Calcium Total Bilirubin AST ALT Alkaline Phosphatase Total Protein Albumin 02/16/25 02/16/25 05:41 07:36 WBC 10.0 RBC 3.86 L Hgb 11.6 L Hct 35.1 L MCV 90.9 MCH 30.1 MCHC 33.0 RDW 14.3 Plt Count 333 MPV 9.1 Immature Gran % (Auto) 0.3 Neut % (Auto) 58.9 Lymph % (Auto) 27.8 [place] % (Auto) 9.6 H Eos % (Auto) 2.3 Baso % (Auto) 1.1 Lymph # (Auto) 2.79 [place] # (Auto) 1.0 H Eos # (Auto) 0.2 Baso # (Auto) 0.1 Abs Immat Gran (auto) 0.03 Absolute Neuts (auto) 5.9 Absolute Nucleated RBC 0.000 Nucleated RBC % 0.0 Sodium 136 L Potassium 4.0 Chloride 104 Carbon Dioxide 27 Anion Gap 5 BUN 19 Creatinine 1.10 Estim Creat Clear Calc 79 Estimated GFR > 60 Glucose 120 H POC Capillary Glucose 88 Calcium 9.3 Total Bilirubin 0.4 AST 28 ALT 23 Alkaline Phosphatase 60 Total Protein 6.5 Albumin 3.4 L Quality VTE Prophylaxis VTE prophylaxis: pharmacologic ordered (home eliquis)
--- NOTE | 2025-02-16 13:12 | P.PNGS_ITS ---
Progress Note: A&P Assessment and Plan (1) Diabetic foot infection: Code(s): E11.628 - Type 2 diabetes mellitus with other skin complications; L08.9 - Local infection of the skin and subcutaneous tissue, unspecified Status: Acute Assessment and Plan: * POD7 s/p I&D of R lateral foot abscess and amputation of R 5th toe and metatarsal head. Wound vac dressing changed today. Wound appears to be healing well with primarily granulation tissue in the wound bed. * Surgically stable for discharge from our standpoint when he has placement. CC working on discharge to [facility]. Wound VAC will be continued at [facility] and he is set up for a f/u with Dr. Delgado in the wound clinic in 1 week after discharge. Continue antibiotics per ID recommendations. EKG recheck today, as patient is on Levaquin. (2) Osteomyelitis: Code(s): M86.9 - Osteomyelitis, unspecified Status: Acute Assessment and Plan: * Continue antibiotics per ID recommendations Plan Discussed patient's case and plan of care with Dr. Alba. Subjective Subjective Date/Time Seen: 02/16/25 13:12 Patient reports: no new complaints, feels better, tolerating a regular diet, bowel movement and afebrile Interval history: No acute events overnight. Labs stable. Exam Narrative: Right foot wound vac removed. The 5th to amputation measures 5.5 x 3 x 1.5. Sutures to proximal portion are intact. Wound bed is primarily red healthy granulation tissue. very tiny air bone exposure. Healing appropriately. No surrounding erythema or swelling. Objective Data Vital Signs Vital Signs: Vital Signs - 24 hr 02/15/25 14:00 02/15/25 22:00 02/16/25 05:59 Temperature 97.9 F 97.8 F 97.5 F L Pulse Rate 84 80 72 Respiratory Rate 18 18 16 Blood Pressure 117/60 136/69 127/74 Pulse Oximetry 98 98 97 Oxygen Delivery 02/16/25 08:00 02/16/25 08:21 Temperature Pulse Rate 83 Respiratory Rate Blood Pressure Pulse Oximetry Oxygen Delivery Room Air Intake/Output Intake/Output: Intake & Output 02/13/25 02/14/25 02/15/25 02/16/25 23:59 23:59 23:59 23:59 Intake Total 2027 1688 1070 630 Balance 2027 1688 1070 814 Meds/Results Medications: Active Medications Generic Name Dose Route Start Last Admin Trade Name Freq PRN Reason Stop Dose Admin Acetaminophen 650 mg 02/08/25 20:45 Acetaminophen 325 Mg Tablet PO Q4H PRN Mild Pain (1-3) or Fever Hydrocodone Bitart/Acetaminophen 1 tab 02/09/25 12:22 02/12/25 20:16 Hydrocodone/Acetaminophen (*Crx) 5-325 Mg Tablet PO 1 tab Q4H PRN Administration Pain Rated 4-6 Hydrocodone Bitart/Acetaminophen 1 tab 02/09/25 12:22 Hydrocodone/Acetaminophen (*Crx) 7.5-325 Mg Tablet PO Q4H PRN Pain Rated 7-10 Albuterol 2 puff 02/09/25 04:10 Albuterol Sulfate (*Sp) Aerosol 1 Puff INHALATION Q6HRT PRN SHORTNESS OF BREATH/WHEEZING Apixaban 5 mg 02/11/25 09:00 02/16/25 08:23 Apixaban 5 Mg Tablet PO 5 mg Q12HR LAURA Administration Aspirin 81 mg 02/11/25 09:00 02/16/25 08:22 Aspirin 81 Mg Enteric Tablet PO 81 mg QAM LAURA Administration Bupropion HCl 150 mg 02/09/25 09:00 02/16/25 08:24 Bupropion Hcl Sr (12 Hr) 150 Mg Tab PO 150 mg DAILY LAURA Administration Clonazepam 0.5 mg 02/09/25 04:06 02/15/25 20:48 Clonazepam (*Crx) 0.5 Mg Tablet PO 0.5 mg BID PRN Administration Anxiety Cyanocobalamin 500 mcg 02/09/25 09:00 02/16/25 08:22 Cyanocobalamin 500 Mcg Tablet PO 03/11/25 08:59 500 mcg DAILY LAURA Administration Dextrose 12.5 gm 02/09/25 05:45 Dextrose 50% 25 Gm/50 Ml Syringe IV PUSH PRN PRN Hypoglycemia Protocol Fentanyl Citrate 25 mcg 02/09/25 15:38 Fentanyl Citrate Inj (*Crx) 100 Mcg/2 Ml Vial IV PUSH Q2M PRN Pain Gabapentin 300 mg 02/09/25 06:00 02/16/25 04:58 Gabapentin 300 Mg Capsule PO 300 mg Q8HR LAURA Administration Glucagon 1 mg 02/09/25 04:10 Glucagon For Inj 1 Mg Vial IM PRN PRN Hypoglycemia Protocol Glucose 15 gm 02/09/25 04:10 Glucose Oral Gel 15 Gm Of Glucse In 37.5 Gm Tube PO PRN PRN Hypoglycemia Protocol Dextrose 1,000 mls @ 100 mls/hr 02/09/25 05:45 Dextrose 5% 1,000 Ml IVPB PRN PRN Hypoglycemia Protocol Levofloxacin/Dextrose 750 mg in 150 mls @ 100 mls/hr 02/12/25 21:00 02/15/25 20:40 Levaquin 750 Mg/D5w 150 Ml IVPB 100 mls/hr Q24H LAURA Administration Insulin Aspart 2 - 5 units 02/11/25 08:00 02/16/25 11:48 Insulin Aspart (*Bkc) 100 Units/Ml SUB-Q Not Given TIDWM LAURA Protocol Loratadine 10 mg 02/09/25 09:00 02/16/25 08:21 Loratadine 10 Mg Tablet PO 10 mg DAILY LAURA Administration Magnesium Oxide 400 mg 02/09/25 09:00 02/16/25 08:21 Magnesium Oxide 400 Mg Tablet PO 400 mg BID LAURA Administration Melatonin 5 mg 02/09/25 21:00 02/15/25 20:42 Melatonin 5 Mg Tablet PO 5 mg HS LAURA Administration Metoprolol Tartrate 50 mg 02/09/25 09:00 02/16/25 08:21 Metoprolol Tartrate 50 Mg Tab BY MOUTH 50 mg Q12HR LAURA Administration Morphine Sulfate 4 mg 02/09/25 17:03 Morphine Sulfate (*Crx) 4 Mg/Ml Inj IV PUSH Q4H PRN Pain Rated 7-10 Nicotine 1 patch 02/08/25 21:25 02/16/25 08:21 Nicotine (*Pbkc) 14 Mg Patch TRANSDERM 1 patch DAILY LAURA Administration (Paliperidone 3 Mg 1 each 02/12/25 21:00 02/15/25 20:42 Oral Tablet, PO 03/14/25 20:59 1 each Extended Release 24 HS LAURA Administration Hr) Pantoprazole Sodium 40 mg 02/09/25 09:00 02/16/25 08:21 Pantoprazole 40 Mg Tablet BY MOUTH 40 mg DAILY LAURA Administration Paroxetine HCl 40 mg 02/09/25 09:00 02/16/25 08:23 Paroxetine 20 Mg Tablet PO 40 mg DAILY LAURA Administration Pravastatin Sodium 20 mg 02/09/25 21:00 02/15/25 20:40 Pravastatin Sodium 20 Mg Tablet PO 20 mg QHS LAURA Administration Vitamin D 50 mcg 02/09/25 09:00 02/16/25 08:22 Cholecalciferol (Vitamin D3) 25 Mcg (1,000 Units) Tablet PO 50 mcg DAILY LAURA Administration Radiology Results: ITS Impressions Foot X-Ray 02/08/25 17:23 IMPRESSION: 1. Significant erosive changes with pathological fracture of distal fifth metatarsal bone suggestive of osteomyelitis with pathologic fracture. Labs Labs: Laboratory Results - last 24 hr 02/15/25 02/15/25 02/16/25 16:16 20:23 05:41 WBC 10.0 RBC 3.86 L Hgb 11.6 L Hct 35.1 L MCV 90.9 MCH 30.1 MCHC 33.0 RDW 14.3 Plt Count 333 MPV 9.1 Immature Gran % (Auto) 0.3 Neut % (Auto) 58.9 Lymph % (Auto) 27.8 [place] % (Auto) 9.6 H Eos % (Auto) 2.3 Baso % (Auto) 1.1 Lymph # (Auto) 2.79 [place] # (Auto) 1.0 H Eos # (Auto) 0.2 Baso # (Auto) 0.1 Abs Immat Gran (auto) 0.03 Absolute Neuts (auto) 5.9 Absolute Nucleated RBC 0.000 Nucleated RBC % 0.0 Sodium 136 L Potassium 4.0 Chloride 104 Carbon Dioxide 27 Anion Gap 5 BUN 19 Creatinine 1.10 Estim Creat Clear Calc 79 Estimated GFR > 60 Glucose 120 H POC Capillary Glucose 109 H 163 H Calcium 9.3 Total Bilirubin 0.4 AST 28 ALT 23 Alkaline Phosphatase 60 Total Protein 6.5 Albumin 3.4 L 02/16/25 02/16/25 07:36 11:40 WBC RBC Hgb Hct MCV MCH MCHC RDW Plt Count MPV Immature Gran % (Auto) Neut % (Auto) Lymph % (Auto) [place] % (Auto) Eos % (Auto) Baso % (Auto) Lymph # (Auto) [place] # (Auto) Eos # (Auto) Baso # (Auto) Abs Immat Gran (auto) Absolute Neuts (auto) Absolute Nucleated RBC Nucleated RBC % Sodium Potassium Chloride Carbon Dioxide Anion Gap BUN Creatinine Estim Creat Clear Calc Estimated GFR Glucose POC Capillary Glucose 88 160 H Calcium Total Bilirubin AST ALT Alkaline Phosphatase Total Protein Albumin
[2025-02-16 14:00] VITALS: BP 119/72; PULSE 80; RESP 16; TEMP 36.7; O2SAT 100
[2025-02-16] MEDS: LIDOCAINE 1% PF INJ 5 ML VIAL INFILTRATE (14:30)
[2025-02-16] MEDS: CEFEPIME 1 GM in SODIUM CHLORIDE 0.9% IV 50 ML 100 ML IVPB (17:21)
[2025-02-16 21:05] VITALS: BP 114/60; PULSE 76; RESP 18; TEMP 36.2; O2SAT 99
[2025-02-16] MEDS: PRAVASTATIN SODIUM 20 MG TABLET PO (21:08)
[2025-02-16] MEDS: MELATONIN 5 MG TABLET PO (21:10)
[2025-02-16] MEDS: clonazePAM (*CRX) 0.5 MG TABLET PO (21:10)
[2025-02-16] MEDS: CENTRAL LINE FLUSH 10 ML IV PUSH (21:17)
[2025-02-17] MEDS: CEFEPIME 1 GM in SODIUM CHLORIDE 0.9% IV 50 ML 100 ML IVPB ×3 (02:02→17:04)
[2025-02-17] MEDS: GABAPENTIN 300 MG CAPSULE PO ×3 (05:11→21:09)
[2025-02-17] MEDS: CENTRAL LINE FLUSH 10 ML IV PUSH ×3 (05:11→21:07)
[2025-02-17 05:26] LABS: Hematocrit 37.8 % (42.0-52.0); Hemoglobin 12.5 g/dL (14.0-18.0); Immature Granulocyte Percent A 0.3 % (0-0.5); Lymphocytes Absolute Auto 2.39 K/mm3 (0.9-3.2); Mean Corpuscular HGB Conc 33.1 g/dl (32-36); Mean Corpuscular Hemoglobin 30.0 pg (26-34); Mean Corpuscular Volume 90.6 fl (80-100); Nucleated Red Blood Cells Absolute Auto 0.000 K/mm3 (0.0-0.012); Nucleated Red Blood Cells Perc 0.0 % (0.0-0.2); Platelet Count Result 382 k/mm3 (150-375); Red Blood Count 4.17 M/mm3 (4.6-6.20); White Blood Count 10.7 K/mm3 (4.5-10.0)
[2025-02-17 05:37] LABS: Alanine Aminotransferase 29 U/L (6-50); Albumin Level 3.8 g/dL (3.5-5.1); Alkaline Phosphatase 64 U/L (38-126); Anion Gap 7 mmol/L (4-12); Aspartate Amino Transferase 38 U/L (17-59); Bilirubin,Total 0.5 mg/dL (0.2-1.3); Blood Urea Nitrogen 20 mg/dL (9-20); Calcium 9.6 mg/dL (8.4-10.2); Carbon Dioxide 27 mmol/L (22-30); Chloride 102 mmol/L (98-107); Estimated CRCL calculation 82 ml/min; Estimated Glomerular Filt Rate > 60; Glucose 142 mg/dL (65-110); Potassium 4.3 mmol/L (3.4-5.0); Sodium 136 mmol/L (137-145); Total Protein 7.1 g/dL (6.3-8.2)
[2025-02-17 05:47] VITALS: BP 141/79; PULSE 58; RESP 18; TEMP 36.4; O2SAT 100
--- NOTE | 2025-02-17 08:09 | P.PNIM_ITS ---
Progress Note: A&P Assessment and Plan (1) Osteomyelitis: Code(s): M86.9 - Osteomyelitis, unspecified Status: Acute Assessment and Plan: Significant erosive changes with pathological fracture of distal fifth me tatarsal bone suggestive of osteomyelitis with pathologic fracture.s/p incision and drainage of right foot abscess with transmetatarsal amputation of right 5th toe per Dr. Delgado on 02/09 -surgery following -->Surgery signed off, will f/u with Dr. Delgado in x1 week after discharge. To go to SNF with wound vac -->Wound vac dressing changed today -Eliquis and aspirin restarted -BC with no growth Wound culture on 02/09 resulted as enterococcus faecalis (which is likely contaminant as the wound had no drainage at the time) and Pseudomonas - PSAR likely real pathogen Wound VAC in place ID consulted for antibiotic guidance continue levofloxacin, DC Zofran and other QTC prolonging medications --Repeat EKG today yielding QTc 471 (yesterday 469) -PT/OT consult weight-bearing through heel of right foot, SNF at discharge, pending auth Per ID, pt to be switched to IV cefepime x6 weeks starting 02/16. While pt is awaiting placement, pt to be on 1g cefepime q8 hours and then once he gets to the facility, pt will be switched to 2g cefepime q12 hours through 03/22/2025. PICC line placed 02/16, awaiting [facility] auth. (2) Type 2 DM with CKD stage 3 and hypertension: Code(s): E11.22 - Type 2 diabetes mellitus with diabetic chronic kidney disease; I12.9 - Hypertensive chronic kidney disease with stage 1 through stage 4 chronic kidney disease, or unspecified chronic kidney disease; N18.30 - Chronic kidney disease, stage 3 unspecified Status: Chronic Assessment and Plan: -accu checks -avoid hypoglycemia -Hgba1c 02/09/25 6.6% -SSI low dose with meals (3) Peripheral neuropathy: Code(s): G62.9 - Polyneuropathy, unspecified Status: Acute Assessment and Plan: -continue with gabapentin, GFR >60 (4) COPD (chronic obstructive pulmonary disease): Code(s): J44.9 - Chronic obstructive pulmonary disease, unspecified Status: Acute Assessment and Plan: -continue with inhaler (5) CASI on CPAP: Code(s): G47.33 - Obstructive sleep apnea (adult) (pediatric); Z99.89 - Dependence on other enabling machines and devices Status: Chronic Assessment and Plan: -auto titrate CPAP/BiPAP home settings. (6) Tobacco abuse: Code(s): Z72.0 - Tobacco use Status: Chronic Assessment and Plan: -smoking cessation has been initiated. Continue nicotine patch (7) Hypertension: Code(s): I10 - Essential (primary) hypertension Status: Acute Assessment and Plan: -continue with metoprolol (8) Anxiety: Code(s): F41.9 - Anxiety disorder, unspecified Status: Acute Assessment and Plan: -continue with hydroxyzine, clonazepam, and paroxetine (9) Depression: Code(s): F32.A - Depression, unspecified Status: Acute Assessment and Plan: -continue with bupropion (10) Schizophrenia: Code(s): F20.9 - Schizophrenia, unspecified Status: Acute Assessment and Plan: -paliperidone is nonformulary. Requesting family bring in from home Plan Continue to treat with IV PICC abx cefepime for osteomyelitis, pending SNF placement auth Subjective Date/time seen: 02/17/25 1012 Interval history: Pt sitting up in bed sleeping comfortably upon my arrival, arousable to voice and touch. Pt with no complaints today other than his chronic neuropathy in his feet. Reiterated plan for PICC abx with auth pending for SNF, pt agreeable. Review of Systems Review of Systems: 12 systems were reviewed and are negativ e except for as per HPI. Constitutional: Constitutional: Reports as per HPI and Reports no additional constitutional complaints Eyes: Eyes: Reports as per HPI and Reports no additional eye complaints ENT: Reports system reviewed and no additional complaints, except as documented and Reports Normal hearing present Cardiovascular: Cardiovascular: Reports no additional cardiovascular complaints Respiratory: Respiratory: Reports as per HPI and Reports no additional respiratory complaints Gastrointestinal: Gastrointestinal: Reports as per HPI and Reports no additional gastrointestinal complaints Musculoskeletal: Musculoskeletal: Reports no additional musculoskeletal complaints Integumentary/Breasts: Skin/Breast: Reports system reviewed and no additional complaints, except as docu Neurologic: Reports system reviewed and no additional complaints, except as documented and Reports Normal hearing present Psychiatric: Psychiatric: Reports no additional psychiatric complaints and Reports as per HPI Hematologic/Lymphatic: Hematologic/Lymphatic: Reports no additional hematologic/lymphatic complaints Allergic/Immunologic: Allergic/Immunologic: Reports no additional allergic/immunologic complaints Exam Const: General: cooperative, comfortable, no acute distress, well developed and well nourished Nutritional Appearance: well nourished Orientation/consciousness: patient oriented x3 HENMT: Head: normal to inspection, normocephalic, atraumatic and abrasion Eyes: General: appearance normal, both eyes and all related structures Alignment and Position: alignment normal Periorbital: periorbital findings normal Pupils: Equal, round and reactive pupils present Neck: Neck: normal visual inspection, full ROM and no lymphadenopathy Chest: Chest palpation & inspection: normal inspection of the chest Resp: Effort & Inspection: normal respiratory effort Auscultation: clear to auscultation bilaterally Cardio: Palpation: normal PMI Rate: regular rate Rhythm: abnormal rhythm Heart sounds: S1 normal heart sound present and S2 normal heart sound present Peripheral pulses: Peripheral pulses 2+ throughout Other: Patient in atrial fibrillation GI: Inspection: normal to inspection Auscultation: normal bowel sounds Rectal Exam: deferred Skin: General skin exam: normal color Lesions: no lesions Rashes: no rashes Trauma: no lacerations or abrasions Hair: normal Nails: normal Other: R pinky toe with wound vac applied, surrounding skin consistent with ethnicity. No feeling to either foot. Valles boot on R foot. -walking boot is intact to the left foot and I did not assess the left foot. Neuro: General: patient oriented x3 Cranial nerves: Yes Equal, round and reactive pupils present Cognition (Neuro): normal cognition Speech: normal speech Motor exam (neuro): Normal motor muscle tone present throughout Sensory Exam: normal sensation Extrem: General: normal exam except as noted Other: Subjective paraesthesias to bilateral feet, unable to feel palpation upon my exam Psych: Appearance: grossly normal Mental Status: mental status grossly normal Speech and movement: Normal speech and movement present Affect: normal affect Attitude: cooperative Thought process: Normal thought process present Objective Data Vital Signs Vital Signs: Vital Signs - 24 hr 02/16/25 08:21 02/16/25 14:00 02/16/25 20:00 Temperature 98.1 F Pulse Rate 83 80 Respiratory Rate 16 Blood Pressure 119/72 Pulse Oximetry 100 Oxygen Delivery Room Air 02/16/25 21:05 02/17/25 05:47 Temperature 97.1 F L 97.6 F Pulse Rate 76 58 L Respiratory Rate 18 18 Blood Pressure 114/60 141/79 H Pulse Oximetry 99 100 Oxygen Delivery Intake/Output Intake/Output: Intake & Output 02/14/25 02/15/25 02/16/25 02/17/25 23:59 23:59 23:59 23:59 Intake Total 1689 1070 920 550 Balance 1689 1070 920 550 Meds/Results Medications: Active Medications Generic Name Dose Route Start Last Admin Trade Name Freq PRN Reason Stop Dose Admin Acetaminophen 650 mg 02/08/25 20:45 Acetaminophen 325 Mg Tablet PO Q4H PRN Mild Pain (1-3) or Fever Hydrocodone Bitart/Acetaminophen 1 tab 02/09/25 12:22 02/12/25 20:16 Hydrocodone/Acetaminophen (*Crx) 5-325 Mg Tablet PO 1 tab Q4H PRN Administration Pain Rated 4-6 Hydrocodone Bitart/Acetaminophen 1 tab 02/09/25 12:22 Hydrocodone/Acetaminophen (*Crx) 7.5-325 Mg Tablet PO Q4H PRN Pain Rated 7-10 Albuterol 2 puff 02/09/25 04:10 Albuterol Sulfate (*Sp) Aerosol 1 Puff INHALATION Q6HRT PRN SHORTNESS OF BREATH/WHEEZING Apixaban 5 mg 02/11/25 09:00 02/16/25 21:06 Apixaban 5 Mg Tablet PO 5 mg Q12HR LAURA Administration Aspirin 81 mg 02/11/25 09:00 02/16/25 08:22 Aspirin 81 Mg Enteric Tablet PO 81 mg QAM LAURA Administration Bupropion HCl 150 mg 02/09/25 09:00 02/16/25 08:24 Bupropion Hcl Sr (12 Hr) 150 Mg Tab PO 150 mg DAILY LAURA Administration Clonazepam 0.5 mg 02/09/25 04:06 02/16/25 21:10 Clonazepam (*Crx) 0.5 Mg Tablet PO 0.5 mg BID PRN Administration Anxiety Cyanocobalamin 500 mcg 02/09/25 09:00 02/16/25 08:22 Cyanocobalamin 500 Mcg Tablet PO 03/11/25 08:59 500 mcg DAILY LAURA Administration Dextrose 12.5 gm 02/09/25 05:45 Dextrose 50% 25 Gm/50 Ml Syringe IV PUSH PRN PRN Hypoglycemia Protocol Fentanyl Citrate 25 mcg 02/09/25 15:38 Fentanyl Citrate Inj (*Crx) 100 Mcg/2 Ml Vial IV PUSH Q2M PRN Pain Gabapentin 300 mg 02/09/25 06:00 02/17/25 05:11 Gabapentin 300 Mg Capsule PO 300 mg Q8HR LAURA Administration Glucagon 1 mg 02/09/25 04:10 Glucagon For Inj 1 Mg Vial IM PRN PRN Hypoglycemia Protocol Glucose 15 gm 02/09/25 04:10 Glucose Oral Gel 15 Gm Of Glucse In 37.5 Gm Tube PO PRN PRN Hypoglycemia Protocol Dextrose 1,000 mls @ 100 mls/hr 02/09/25 05:45 Dextrose 5% 1,000 Ml IVPB PRN PRN Hypoglycemia Protocol Cefepime HCl 1 gm/ Sodium 50 mls @ 100 mls/hr 02/16/25 18:00 02/17/25 02:02 Chloride IVPB 100 mls/hr Q8H LAURA Administration Insulin Aspart 2 - 5 units 02/11/25 08:00 02/16/25 17:16 Insulin Aspart (*Bkc) 100 Units/Ml SUB-Q Not Given TIDWM LAURA Protocol Loratadine 10 mg 02/09/25 09:00 02/16/25 08:21 Loratadine 10 Mg Tablet PO 10 mg DAILY LAURA Administration Magnesium Oxide 400 mg 02/09/25 09:00 02/16/25 17:19 Magnesium Oxide 400 Mg Tablet PO 400 mg BID LAURA Administration Melatonin 5 mg 02/09/25 21:00 02/16/25 21:10 Melatonin 5 Mg Tablet PO 5 mg HS LAURA Administration Metoprolol Tartrate 50 mg 02/09/25 09:00 02/16/25 21:07 Metoprolol Tartrate 50 Mg Tab BY MOUTH 50 mg Q12HR LAURA Administration Morphine Sulfate 4 mg 02/09/25 17:03 Morphine Sulfate (*Crx) 4 Mg/Ml Inj IV PUSH Q4H PRN Pain Rated 7-10 Nicotine 1 patch 02/08/25 21:25 02/16/25 08:21 Nicotine (*Pbkc) 14 Mg Patch TRANSDERM 1 patch DAILY LAURA Administration (Paliperidone 3 Mg 1 each 02/12/25 21:00 02/16/25 21:08 Oral Tablet, PO 03/14/25 20:59 1 each Extended Release 24 HS LAURA Administration Hr) Pantoprazole Sodium 40 mg 02/09/25 09:00 02/16/25 08:21 Pantoprazole 40 Mg Tablet BY MOUTH 40 mg DAILY LAURA Administration Paroxetine HCl 40 mg 02/09/25 09:00 02/16/25 08:23 Paroxetine 20 Mg Tablet PO 40 mg DAILY LAURA Administration Pravastatin Sodium 20 mg 02/09/25 21:00 02/16/25 21:08 Pravastatin Sodium 20 Mg Tablet PO 20 mg QHS LAURA Administration Sodium Chloride 10 ml 02/16/25 22:00 02/17/25 05:11 Central Line Flush IV PUSH 10 ml Q8HR LAURA Administration Sodium Chloride 10 ml 02/16/25 15:47 Central Line Flush IV PUSH PRN PRN with TPN bag changes Sodium Chloride 20 ml 02/16/25 15:47 Central Line Flush IV PUSH PRN PRN after blood draws Vitamin D 50 mcg 02/09/25 09:00 02/16/25 08:22 Cholecalciferol (Vitamin D3) 25 Mcg (1,000 Units) Tablet PO 50 mcg DAILY LAURA Administration Radiology Results: ITS Impressions Foot X-Ray 02/08/25 17:23 IMPRESSION: 1. Significant erosive changes with pathological fracture of distal fifth metatarsal bone suggestive of osteomyelitis with pathologic fracture. Chest X-Ray 02/16/25 15:43 Impression: 1: PICC line tip in the SVC. Labs Labs: Laboratory Results - last 24 hr 02/16/25 02/16/25 02/16/25 11:40 16:42 19:55 WBC RBC Hgb Hct MCV MCH MCHC RDW Plt Count MPV Immature Gran % (Auto) Neut % (Auto) Lymph % (Auto) [place] % (Auto) Eos % (Auto) Baso % (Auto) Lymph # (Auto) [place] # (Auto) Eos # (Auto) Baso # (Auto) Abs Immat Gran (auto) Absolute Neuts (auto) Absolute Nucleated RBC Nucleated RBC % Sodium Potassium Chloride Carbon Dioxide Anion Gap BUN Creatinine Estim Creat Clear Calc Estimated GFR Glucose POC Capillary Glucose 160 H 108 H 184 H Calcium Total Bilirubin AST ALT Alkaline Phosphatase Total Protein Albumin 02/17/25 02/17/25 05:10 07:47 WBC 10.7 H RBC 4.17 L Hgb 12.5 L Hct 37.8 L MCV 90.6 MCH 30.0 MCHC 33.1 RDW 14.3 Plt Count 382 H MPV 9.3 Immature Gran % (Auto) 0.3 Neut % (Auto) 67.4 Lymph % (Auto) 22.3 [place] % (Auto) 7.2 Eos % (Auto) 1.9 Baso % (Auto) 0.9 Lymph # (Auto) 2.39 [place] # (Auto) 0.8 H Eos # (Auto) 0.2 Baso # (Auto) 0.1 Abs Immat Gran (auto) 0.03 Absolute Neuts (auto) 7.2 H Absolute Nucleated RBC 0.000 Nucleated RBC % 0.0 Sodium 136 L Potassium 4.3 Chloride 102 Carbon Dioxide 27 Anion Gap 7 BUN 20 Creatinine 1.06 Estim Creat Clear Calc 82 Estimated GFR > 60 Glucose 142 H POC Capillary Glucose 149 H Calcium 9.6 Total Bilirubin 0.5 AST 38 ALT 29 Alkaline Phosphatase 64 Total Protein 7.1 Albumin 3.8 Quality VTE Prophylaxis VTE prophylaxis: pharmacologic ordered (home eliquis)
[2025-02-17 09:35] VITALS: PULSE 74
[2025-02-17] MEDS: MAGNESIUM OXIDE 400 MG TABLET PO ×2 (09:35→17:04)
[2025-02-17] MEDS: METOPROLOL TARTRATE 50 MG TAB BY MOUTH ×2 (09:35→21:04)
[2025-02-17] MEDS: PANTOPRAZOLE 40 MG TABLET BY MOUTH (09:35)
[2025-02-17] MEDS: LORATADINE 10 MG TABLET PO (09:35)
[2025-02-17] MEDS: CHOLECALCIFEROL (VITAMIN D3) 25 MCG (1,000 UNITS) TABLET 50 MCG PO (09:35)
[2025-02-17] MEDS: buPROPion HCL SR (12 HR) 150 MG TAB PO (09:36)
[2025-02-17] MEDS: CYANOCOBALAMIN 500 MCG TABLET PO (09:36)
[2025-02-17] MEDS: clonazePAM (*CRX) 0.5 MG TABLET PO ×2 (09:36→21:04)
[2025-02-17] MEDS: APIXABAN 5 MG TABLET PO ×2 (09:36→21:04)
[2025-02-17] MEDS: NICOTINE (*PBKC) 14 MG PATCH 1 PATCH TRANSDERM (09:37)
[2025-02-17] MEDS: ASPIRIN 81 MG ENTERIC TABLET PO (09:37)
[2025-02-17 14:00] VITALS: BP 102/66; PULSE 73; RESP 18; TEMP 36.4; O2SAT 73
[2025-02-17] MEDS: PRAVASTATIN SODIUM 20 MG TABLET PO (21:04)
[2025-02-17] MEDS: MELATONIN 5 MG TABLET PO (21:04)
[2025-02-17 21:43] VITALS: BP 117/67; PULSE 81; RESP 18; TEMP 36.4; O2SAT 99
[2025-02-18] VITALS (7 sets, daily range): BP systolic 100–127; BP diastolic 50–77; PULSE 72–80; RESP 18; TEMP 36.2–36.8; O2SAT 96–99
[2025-02-18] MEDS: CEFEPIME 1 GM in SODIUM CHLORIDE 0.9% IV 50 ML 100 ML IVPB ×3 (03:04→17:09)
[2025-02-18] MEDS: GABAPENTIN 300 MG CAPSULE PO ×3 (05:43→21:10)
[2025-02-18] MEDS: CENTRAL LINE FLUSH 10 ML IV PUSH ×3 (05:45→22:00)
[2025-02-18 05:47] LABS: Hematocrit 35.5 % (42.0-52.0); Hemoglobin 11.7 g/dL (14.0-18.0); Immature Granulocyte Percent A 0.3 % (0-0.5); Lymphocytes Absolute Auto 2.40 K/mm3 (0.9-3.2); Mean Corpuscular HGB Conc 33.0 g/dl (32-36); Mean Corpuscular Hemoglobin 30.2 pg (26-34); Mean Corpuscular Volume 91.5 fl (80-100); Nucleated Red Blood Cells Absolute Auto 0.000 K/mm3 (0.0-0.012); Nucleated Red Blood Cells Perc 0.0 % (0.0-0.2); Platelet Count Result 338 k/mm3 (150-375); Red Blood Count 3.88 M/mm3 (4.6-6.20); White Blood Count 9.4 K/mm3 (4.5-10.0)
[2025-02-18 05:59] LABS: Alanine Aminotransferase 28 U/L (6-50); Albumin Level 3.5 g/dL (3.5-5.1); Alkaline Phosphatase 60 U/L (38-126); Anion Gap 3 mmol/L (4-12); Aspartate Amino Transferase 40 U/L (17-59); Bilirubin,Total 0.4 mg/dL (0.2-1.3); Blood Urea Nitrogen 21 mg/dL (9-20); Calcium 9.5 mg/dL (8.4-10.2); Carbon Dioxide 28 mmol/L (22-30); Chloride 106 mmol/L (98-107); Estimated CRCL calculation 85 ml/min; Estimated Glomerular Filt Rate > 60; Glucose 124 mg/dL (65-110); Potassium 4.2 mmol/L (3.4-5.0); Sodium 137 mmol/L (137-145); Total Protein 6.7 g/dL (6.3-8.2)
--- NOTE | 2025-02-18 08:05 | P.PNIM_ITS ---
Progress Note: A&P Assessment and Plan (1) Osteomyelitis: Code(s): M86.9 - Osteomyelitis, unspecified Status: Acute Assessment and Plan: Significant erosive changes with pathological fracture of distal fifth me tatarsal bone suggestive of osteomyelitis with pathologic fracture.s/p incision and drainage of right foot abscess with transmetatarsal amputation of right 5th toe per Dr. Delgado on 02/09 -surgery following -->Surgery signed off, will f/u with Dr. Delgado in x1 week after discharge. To go to SNF with wound vac -->Wound vac dressing changed today -Eliquis and aspirin restarted -BC with no growth Wound culture on 02/09 resulted as enterococcus faecalis (which is likely contaminant as the wound had no drainage at the time) and Pseudomonas - PSAR likely real pathogen Wound VAC in place ID consulted for antibiotic guidance continue levofloxacin, DC Zofran and other QTC prolonging medications --Repeat EKG today yielding QTc 471 (yesterday 469) -PT/OT consult weight-bearing through heel of right foot, SNF at discharge, pending auth Per ID, pt to be switched to IV cefepime x6 weeks starting 02/16. While pt is awaiting placement, pt to be on 1g cefepime q8 hours and then once he gets to the facility, pt will be switched to 2g cefepime q12 hours through 03/22/2025. PICC line placed 02/16, awaiting [facility] auth. (2) Type 2 DM with CKD stage 3 and hypertension: Code(s): E11.22 - Type 2 diabetes mellitus with diabetic chronic kidney disease; I12.9 - Hypertensive chronic kidney disease with stage 1 through stage 4 chronic kidney disease, or unspecified chronic kidney disease; N18.30 - Chronic kidney disease, stage 3 unspecified Status: Chronic Assessment and Plan: -accu checks -avoid hypoglycemia -Hgba1c 02/09/25 6.6% -SSI low dose with meals (3) Peripheral neuropathy: Code(s): G62.9 - Polyneuropathy, unspecified Status: Acute Assessment and Plan: -continue with gabapentin, GFR >60 (4) COPD (chronic obstructive pulmonary disease): Code(s): J44.9 - Chronic obstructive pulmonary disease, unspecified Status: Acute Assessment and Plan: -continue with inhaler (5) CASI on CPAP: Code(s): G47.33 - Obstructive sleep apnea (adult) (pediatric); Z99.89 - Dependence on other enabling machines and devices Status: Chronic Assessment and Plan: -auto titrate CPAP/BiPAP home settings. (6) Tobacco abuse: Code(s): Z72.0 - Tobacco use Status: Chronic Assessment and Plan: -smoking cessation has been initiated. Continue nicotine patch (7) Hypertension: Code(s): I10 - Essential (primary) hypertension Status: Acute Assessment and Plan: Held metoprolol today due to low BP of 100/50, asymptomatic. Will continue to trend (8) Anxiety: Code(s): F41.9 - Anxiety disorder, unspecified Status: Acute Assessment and Plan: -continue with hydroxyzine, clonazepam, and paroxetine (9) Depression: Code(s): F32.A - Depression, unspecified Status: Acute Assessment and Plan: -continue with bupropion (10) Schizophrenia: Code(s): F20.9 - Schizophrenia, unspecified Status: Acute Assessment and Plan: -paliperidone is nonformulary. Requesting family bring in from home Plan Continue to treat with IV PICC abx cefepime for osteomyelitis, pending SNF [facility] Subjective Date/time seen: 02/18/25 1031 Interval history: Pt sitting up in chair resting comfortably upon my arrival. Pt with no complaints today other than his chronic neuropathy in his feet. Reiterated plan for PICC abx with auth pending for SNF, pt agreeable. Review of Systems Review of Systems: 12 systems were reviewed and are negativ e except for as per HPI. Constitutional: Constitutional: Reports as per HPI and Reports no additional constitutional complaints Eyes: Eyes: Reports as per HPI and Reports no additional eye complaints ENT: Reports system reviewed and no additional complaints, except as documen jyoti and Reports Normal hearing present Cardiovascular: Cardiovascular: Reports no additional cardiovascular complaints Respiratory: Respiratory: Reports as per HPI and Reports no additional respiratory complaints Gastrointestinal: Gastrointestinal: Reports as per HPI and Reports no additional gastrointestinal complaints Musculoskeletal: Musculoskeletal: Reports no additional musculoskeletal complaints Integumentary/Breasts: Skin/Breast: Reports system reviewed and no additional complaints, except as docu Neurologic: Reports system reviewed and no additional complaints, except as documented and Reports Normal hearing present Psychiatric: Psychiatric: Reports no additional psychiatric complaints and Reports as per HPI Hematologic/Lymphatic: Hematologic/Lymphatic: Reports no additional hematologic/lymphatic complaints Allergic/Immunologic: Allergic/Immunologic: Reports no additional allergic/immunologic complaints Exam Const: General: cooperative, comfortable, no acute distress, well developed and awake Orientation/consciousness: patient oriented x3 HENMT: Head: normocephalic and atraumatic Eyes: General: appearance normal, both eyes and all related structures Pupils: Equal, round and reactive pupils present Neck: Neck: normal visual inspection and full ROM Resp: Effort & Inspection: normal respiratory effort Auscultation: clear to auscultation bilaterally Cardio: Palpation: normal PMI Rate: regular rate Rhythm: abnormal rhythm Heart sounds: S1 normal heart sound present and S2 normal heart sound present Peripheral pulses: Peripheral pulses 2+ throughout Other: Patient in atrial fibrillation GI: Inspection: normal to inspection Auscultation: normal bowel sounds Rectal Exam: deferred Skin: Other: R pinky toe with wound vac applied, surrounding skin consistent with ethnicity. No feeling to either foot. Valles boot on R foot. -walking boot is intact to the left foot and I did not assess the left foot. Neuro: General: patient oriented x3 Cranial nerves: Yes Equal, round and reactive pupils present Cognition (Neuro): normal cognition Speech: normal speech Motor exam (neuro): Normal motor muscle tone present throughout Sensory Exam: normal sensation Extrem: General: normal exam except as noted Other: Subjective paraesthesias to bilateral feet, unable to feel palpation upon my exam Psych: Appearance: grossly normal Mental Status: mental status grossly normal Speech and movement: Normal speech and movement present Affect: normal affect Attitude: cooperative Thought process: Normal thought process present Objective Data Vital Signs Vital Signs: Vital Signs - 24 hr 02/17/25 09:30 02/17/25 09:35 02/17/25 14:00 Temperature 97.6 F Pulse Rate 74 73 Respiratory Rate 18 Blood Pressure 102/66 Pulse Oximetry 73 L Oxygen Delivery Room Air 02/17/25 20:00 02/17/25 21:43 02/18/25 06:00 Temperature 97.6 F 97.1 F L Pulse Rate 81 73 Respiratory Rate 18 18 Blood Pressure 117/67 127/66 Pulse Oximetry 99 98 Oxygen Delivery Room Air Intake/Output Intake/Output: Intake & Output 02/15/25 02/16/25 02/17/25 02/18/25 23:59 23:59 23:59 23:59 Intake Total 4547 318 0953 600 Balance 6079 008 7756 600 Meds/Results Medications: Active Medications Generic Name Dose Route Start Last Admin Trade Name Freq PRN Reason Stop Dose Admin Acetaminophen 650 mg 02/08/25 20:45 Acetaminophen 325 Mg Tablet PO Q4H PRN Mild Pain (1-3) or Fever Hydrocodone Bitart/Acetaminophen 1 tab 02/09/25 12:22 02/12/25 20:16 Hydrocodone/Acetaminophen (*Crx) 5-325 Mg Tablet PO 1 tab Q4H PRN Administration Pain Rated 4-6 Hydrocodone Bitart/Acetaminophen 1 tab 02/09/25 12:22 Hydrocodone/Acetaminophen (*Crx) 7.5-325 Mg Tablet PO Q4H PRN Pain Rated 7-10 Albuterol 2 puff 02/09/25 04:10 Albuterol Sulfate (*Sp) Aerosol 1 Puff INHALATION Q6HRT PRN SHORTNESS OF BREATH/WHEEZING Apixaban 5 mg 02/11/25 09:00 02/17/25 21:04 Apixaban 5 Mg Tablet PO 5 mg Q12HR LAURA Administration Aspirin 81 mg 02/11/25 09:00 02/17/25 09:37 Aspirin 81 Mg Enteric Tablet PO 81 mg QAM LAURA Administration Bupropion HCl 150 mg 02/09/25 09:00 02/17/25 09:36 Bupropion Hcl Sr (12 Hr) 150 Mg Tab PO 150 mg DAILY LAURA Administration Clonazepam 0.5 mg 02/09/25 04:06 02/17/25 21:04 Clonazepam (*Crx) 0.5 Mg Tablet PO 0.5 mg BID PRN Administration Anxiety Cyanocobalamin 500 mcg 02/09/25 09:00 02/17/25 09:36 Cyanocobalamin 500 Mcg Tablet PO 03/11/25 08:59 500 mcg DAILY LAURA Administration Dextrose 12.5 gm 02/09/25 05:45 Dextrose 50% 25 Gm/50 Ml Syringe IV PUSH PRN PRN Hypoglycemia Protocol Fentanyl Citrate 25 mcg 02/09/25 15:38 Fentanyl Citrate Inj (*Crx) 100 Mcg/2 Ml Vial IV PUSH Q2M PRN Pain Gabapentin 300 mg 02/09/25 06:00 02/18/25 05:43 Gabapentin 300 Mg Capsule PO 300 mg Q8HR LAURA Administration Glucagon 1 mg 02/09/25 04:10 Glucagon For Inj 1 Mg Vial IM PRN PRN Hypoglycemia Protocol Glucose 15 gm 02/09/25 04:10 Glucose Oral Gel 15 Gm Of Glucse In 37.5 Gm Tube PO PRN PRN Hypoglycemia Protocol Dextrose 1,000 mls @ 100 mls/hr 02/09/25 05:45 Dextrose 5% 1,000 Ml IVPB PRN PRN Hypoglycemia Protocol Cefepime HCl 1 gm/ Sodium 50 mls @ 100 mls/hr 02/16/25 18:00 02/18/25 03:04 Chloride IVPB 100 mls/hr Q8H LAURA Administration Insulin Aspart 2 - 5 units 02/11/25 08:00 02/17/25 17:04 Insulin Aspart (*Bkc) 100 Units/Ml SUB-Q Not Given TIDWM LAURA Protocol Loratadine 10 mg 02/09/25 09:00 02/17/25 09:35 Loratadine 10 Mg Tablet PO 10 mg DAILY LAURA Administration Magnesium Oxide 400 mg 02/09/25 09:00 02/17/25 17:04 Magnesium Oxide 400 Mg Tablet PO 400 mg BID LAURA Administration Melatonin 5 mg 02/09/25 21:00 02/17/25 21:04 Melatonin 5 Mg Tablet PO 5 mg HS LAURA Administration Metoprolol Tartrate 50 mg 02/09/25 09:00 02/17/25 21:04 Metoprolol Tartrate 50 Mg Tab BY MOUTH 50 mg Q12HR LAURA Administration Morphine Sulfate 4 mg 02/09/25 17:03 Morphine Sulfate (*Crx) 4 Mg/Ml Inj IV PUSH Q4H PRN Pain Rated 7-10 Nicotine 1 patch 02/08/25 21:25 02/17/25 09:37 Nicotine (*Pbkc) 14 Mg Patch TRANSDERM 1 patch DAILY LAURA Administration (Paliperidone 3 Mg 1 each 02/12/25 21:00 02/17/25 21:04 Oral Tablet, PO 03/14/25 20:59 1 each Extended Release 24 HS LAURA Administration Hr) Pantoprazole Sodium 40 mg 02/09/25 09:00 02/17/25 09:35 Pantoprazole 40 Mg Tablet BY MOUTH 40 mg DAILY LAURA Administration Paroxetine HCl 40 mg 02/09/25 09:00 02/17/25 09:46 Paroxetine 20 Mg Tablet PO 40 mg DAILY LAURA Administration Pravastatin Sodium 20 mg 02/09/25 21:00 02/17/25 21:04 Pravastatin Sodium 20 Mg Tablet PO 20 mg QHS LAURA Administration Sodium Chloride 10 ml 02/16/25 22:00 02/18/25 05:45 Central Line Flush IV PUSH 10 ml Q8HR LAURA Administration Sodium Chloride 10 ml 02/16/25 15:47 Central Line Flush IV PUSH PRN PRN with TPN bag changes Sodium Chloride 20 ml 02/16/25 15:47 Central Line Flush IV PUSH PRN PRN after blood draws Vitamin D 50 mcg 02/09/25 09:00 02/17/25 09:35 Cholecalciferol (Vitamin D3) 25 Mcg (1,000 Units) Tablet PO 50 mcg DAILY LAURA Administration Radiology Results: ITS Impressions Foot X-Ray 02/08/25 17:23 IMPRESSION: 1. Significant erosive changes with pathological fracture of distal fifth metatarsal bone suggestive of osteomyelitis with pathologic fracture. Chest X-Ray 02/16/25 15:43 Impression: 1: PICC line tip in the SVC. Labs Labs: Laboratory Results - last 24 hr 02/17/25 02/17/25 02/17/25 11:21 16:35 20:39 WBC RBC Hgb Hct MCV MCH MCHC RDW Plt Count MPV Immature Gran % (Auto) Neut % (Auto) Lymph % (Auto) [place] % (Auto) Eos % (Auto) Baso % (Auto) Lymph # (Auto) [place] # (Auto) Eos # (Auto) Baso # (Auto) Abs Immat Gran (auto) Absolute Neuts (auto) Absolute Nucleated RBC Nucleated RBC % Sodium Potassium Chloride Carbon Dioxide Anion Gap BUN Creatinine Estim Creat Clear Calc Estimated GFR Glucose POC Capillary Glucose 152 H 113 H 164 H Calcium Total Bilirubin AST ALT Alkaline Phosphatase Total Protein Albumin 02/17/25 02/18/25 02/18/25 21:15 05:41 07:37 WBC 9.4 RBC 3.88 L Hgb 11.7 L Hct 35.5 L MCV 91.5 MCH 30.2 MCHC 33.0 RDW 14.0 Plt Count 338 MPV 9.3 Immature Gran % (Auto) 0.3 Neut % (Auto) 61.5 Lymph % (Auto) 25.6 [place] % (Auto) 9.4 H Eos % (Auto) 2.1 Baso % (Auto) 1.1 Lymph # (Auto) 2.40 [place] # (Auto) 0.9 H Eos # (Auto) 0.2 Baso # (Auto) 0.1 Abs Immat Gran (auto) 0.03 Absolute Neuts (auto) 5.8 Absolute Nucleated RBC 0.000 Nucleated RBC % 0.0 Sodium 137 Potassium 4.2 Chloride 106 Carbon Dioxide 28 Anion Gap 3 L BUN 21 H Creatinine 1.02 Estim Creat Clear Calc 85 Estimated GFR > 60 Glucose 124 H POC Capillary Glucose 166 H 140 H Calcium 9.5 Total Bilirubin 0.4 AST 40 ALT 28 Alkaline Phosphatase 60 Total Protein 6.7 Albumin 3.5 Quality VTE Prophylaxis VTE prophylaxis: pharmacologic ordered (home eliquis)
[2025-02-18] MEDS: LORATADINE 10 MG TABLET PO (09:58)
[2025-02-18] MEDS: PANTOPRAZOLE 40 MG TABLET BY MOUTH (09:58)
[2025-02-18] MEDS: ASPIRIN 81 MG ENTERIC TABLET PO (09:58)
[2025-02-18] MEDS: APIXABAN 5 MG TABLET PO ×2 (09:58→20:34)
[2025-02-18] MEDS: buPROPion HCL SR (12 HR) 150 MG TAB PO (09:58)
[2025-02-18] MEDS: CHOLECALCIFEROL (VITAMIN D3) 25 MCG (1,000 UNITS) TABLET 50 MCG PO (09:58)
[2025-02-18] MEDS: NICOTINE (*PBKC) 14 MG PATCH 1 PATCH TRANSDERM (09:58)
[2025-02-18] MEDS: CYANOCOBALAMIN 500 MCG TABLET PO (09:58)
[2025-02-18] MEDS: MAGNESIUM OXIDE 400 MG TABLET PO ×2 (09:58→17:09)
[2025-02-18] MEDS: INSULIN ASPART (*BKC) 100 UNITS/ML SUB-Q (11:48)
[2025-02-18] MEDS: PRAVASTATIN SODIUM 20 MG TABLET PO (20:34)
[2025-02-18] MEDS: MELATONIN 5 MG TABLET PO (20:34)
[2025-02-18] MEDS: clonazePAM (*CRX) 0.5 MG TABLET PO (20:37)
[2025-02-18] MEDS: METOPROLOL TARTRATE 50 MG TAB BY MOUTH (20:41)
[2025-02-19] MEDS: CEFEPIME 1 GM in SODIUM CHLORIDE 0.9% IV 50 ML 100 ML IVPB ×2 (02:00→09:24)
[2025-02-19 04:49] LABS: Hematocrit 33.9 % (42.0-52.0); Hemoglobin 11.1 g/dL (14.0-18.0); Immature Granulocyte Percent A 0.3 % (0-0.5); Lymphocytes Absolute Auto 2.26 K/mm3 (0.9-3.2); Mean Corpuscular HGB Conc 32.7 g/dl (32-36); Mean Corpuscular Hemoglobin 29.6 pg (26-34); Mean Corpuscular Volume 90.4 fl (80-100); Nucleated Red Blood Cells Absolute Auto 0.000 K/mm3 (0.0-0.012); Nucleated Red Blood Cells Perc 0.0 % (0.0-0.2); Platelet Count Result 306 k/mm3 (150-375); Red Blood Count 3.75 M/mm3 (4.6-6.20); White Blood Count 9.1 K/mm3 (4.5-10.0)
[2025-02-19 05:17] LABS: Alanine Aminotransferase 43 U/L (6-50); Albumin Level 3.4 g/dL (3.5-5.1); Alkaline Phosphatase 69 U/L (38-126); Anion Gap 3 mmol/L (4-12); Aspartate Amino Transferase 55 U/L (17-59); Bilirubin,Total 0.5 mg/dL (0.2-1.3); Blood Urea Nitrogen 17 mg/dL (9-20); Calcium 9.4 mg/dL (8.4-10.2); Carbon Dioxide 29 mmol/L (22-30); Chloride 105 mmol/L (98-107); Estimated CRCL calculation 85 ml/min; Estimated Glomerular Filt Rate > 60; Glucose 132 mg/dL (65-110); Potassium 4.1 mmol/L (3.4-5.0); Sodium 137 mmol/L (137-145); Total Protein 6.4 g/dL (6.3-8.2)
[2025-02-19] MEDS: GABAPENTIN 300 MG CAPSULE PO ×3 (05:22→21:39)
[2025-02-19] MEDS: CENTRAL LINE FLUSH 10 ML IV PUSH ×3 (05:22→21:39)
[2025-02-19 06:00] VITALS: BP 126/69; PULSE 77; RESP 18; TEMP 36.1; O2SAT 96
--- NOTE | 2025-02-19 08:20 | WPDINFPN2 ---
Progress Note: A&P Assessment and Plan (1) Diabetic foot infection: Code(s): E11.628 - Type 2 diabetes mellitus with other skin complications; L08.9 - Local infection of the skin and subcutaneous tissue, unspecified Status: Acute (2) Osteomyelitis: Code(s): M86.9 - Osteomyelitis, unspecified Status: Acute Assessment and Plan: ASSESSMENT: 1. Right foot, plantar/lateral foot wound with abscess and osteomyelitis/fracture of 5th metatarsal head s/p I&D with partial 5th ray resection on 02/09/25; abscess cx with PSAR and enterococcus; Path margin positive 2. DM 3. Afib, CAD, HTN, HL, obesity, COPD 4. anxiety, depression, schizophrenia RECOMMENDATIONS: -enterococcus is likely contaminant--PSAR is likely real pathogen -f/u on blood cxs--neg and final -can change to IV cefepime 2 grams Q12 hrs through Mar 22, 2025 d/w nursing staff Pt was seen via video telehealth consultation with the assistance of staff. Chart, data and patient info reviewed. Patient was located at [facility] while I was in my [place] office. Pt gave consent. Subjective Date/time seen: 02/19/25 08:20 Interval history: no fever no leukocytosis Exam Narrative: non-toxic, NAD, on room air PICC LUE right foot dressing in place--per wound care nurse no eschar, healthy, pink Objective Data Vital Signs Vital Signs: Vital Signs - 24 hr 02/18/25 09:45 02/18/25 10:00 02/18/25 13:29 Temperature 98.2 F Pulse Rate 72 80 Respiratory Rate 18 Blood Pressure 100/50 L 103/68 Pulse Oximetry 99 96 Oxygen Delivery Room Air 02/18/25 15:32 02/18/25 16:26 02/18/25 20:00 Temperature Pulse Rate 72 Respiratory Rate Blood Pressure 126/72 Pulse Oximetry Oxygen Delivery Room Air 02/18/25 20:41 02/18/25 22:00 02/19/25 06:00 Temperature 97.2 F L 97.0 F L Pulse Rate 78 77 77 Respiratory Rate 18 18 Blood Pressure 126/77 126/69 Pulse Oximetry 98 96 Oxygen Delivery Intake/Output Intake/Output: Intake & Output 11/28/25 11/29/25 11/30/25 12/01/25 23:59 23:59 23:59 23:59 Intake Total 920 1270 3940 550 Balance 920 1270 3940 550 Meds/Results Medications: Active Medications Generic Name Dose Route Start Last Admin Trade Name Freq PRN Reason Stop Dose Admin Acetaminophen 650 mg 02/08/25 20:45 Acetaminophen 325 Mg Tablet PO Q4H PRN Mild Pain (1-3) or Fever Hydrocodone Bitart/Acetaminophen 1 tab 02/09/25 12:22 02/12/25 20:16 Hydrocodone/Acetaminophen (*Crx) 5-325 Mg Tablet PO 1 tab Q4H PRN Administration Pain Rated 4-6 Hydrocodone Bitart/Acetaminophen 1 tab 02/09/25 12:22 Hydrocodone/Acetaminophen (*Crx) 7.5-325 Mg Tablet PO Q4H PRN Pain Rated 7-10 Albuterol 2 puff 02/09/25 04:10 Albuterol Sulfate (*Sp) Aerosol 1 Puff INHALATION Q6HRT PRN SHORTNESS OF BREATH/WHEEZING Apixaban 5 mg 02/11/25 09:00 02/18/25 20:34 Apixaban 5 Mg Tablet PO 5 mg Q12HR LAURA Administration Aspirin 81 mg 02/11/25 09:00 02/18/25 09:58 Aspirin 81 Mg Enteric Tablet PO 81 mg QAM LAURA Administration Bupropion HCl 150 mg 02/09/25 09:00 02/18/25 09:58 Bupropion Hcl Sr (12 Hr) 150 Mg Tab PO 150 mg DAILY LAURA Administration Clonazepam 0.5 mg 02/09/25 04:06 02/18/25 20:37 Clonazepam (*Crx) 0.5 Mg Tablet PO 0.5 mg BID PRN Administration Anxiety Cyanocobalamin 500 mcg 02/09/25 09:00 02/18/25 09:58 Cyanocobalamin 500 Mcg Tablet PO 03/11/25 08:59 500 mcg DAILY LAURA Administration Dextrose 12.5 gm 02/09/25 05:45 Dextrose 50% 25 Gm/50 Ml Syringe IV PUSH PRN PRN Hypoglycemia Protocol Fentanyl Citrate 25 mcg 02/09/25 15:38 Fentanyl Citrate Inj (*Crx) 100 Mcg/2 Ml Vial IV PUSH Q2M PRN Pain Gabapentin 300 mg 02/09/25 06:00 02/19/25 05:22 Gabapentin 300 Mg Capsule PO 300 mg Q8HR LAURA Administration Glucagon 1 mg 02/09/25 04:10 Glucagon For Inj 1 Mg Vial IM PRN PRN Hypoglycemia Protocol Glucose 15 gm 02/09/25 04:10 Glucose Oral Gel 15 Gm Of Glucse In 37.5 Gm Tube PO PRN PRN Hypoglycemia Protocol Dextrose 1,000 mls @ 100 mls/hr 02/09/25 05:45 Dextrose 5% 1,000 Ml IVPB PRN PRN Hypoglycemia Protocol Cefepime HCl 1 gm/ Sodium 50 mls @ 100 mls/hr 02/16/25 18:00 02/19/25 02:30 Chloride IVPB Infused Q8H LAURA Infusion Insulin Aspart 2 - 5 units 02/11/25 08:00 02/18/25 16:35 Insulin Aspart (*Bkc) 100 Units/Ml SUB-Q Not Given TIDWM LAURA Protocol Loratadine 10 mg 02/09/25 09:00 02/18/25 09:58 Loratadine 10 Mg Tablet PO 10 mg DAILY LAURA Administration Magnesium Oxide 400 mg 02/09/25 09:00 02/18/25 17:09 Magnesium Oxide 400 Mg Tablet PO 400 mg BID LAURA Administration Melatonin 5 mg 02/09/25 21:00 02/18/25 20:34 Melatonin 5 Mg Tablet PO 5 mg HS LAURA Administration Metoprolol Tartrate 50 mg 02/09/25 09:00 02/18/25 20:41 Metoprolol Tartrate 50 Mg Tab BY MOUTH 50 mg Q12HR LAURA Administration Morphine Sulfate 4 mg 02/09/25 17:03 Morphine Sulfate (*Crx) 4 Mg/Ml Inj IV PUSH Q4H PRN Pain Rated 7-10 Nicotine 1 patch 02/08/25 21:25 02/18/25 09:58 Nicotine (*Pbkc) 14 Mg Patch TRANSDERM 1 patch DAILY LAURA Administration (Paliperidone 3 Mg 1 each 02/12/25 21:00 02/18/25 21:00 Oral Tablet, PO 03/14/25 20:59 1 each Extended Release 24 HS LAURA Administration Hr) Pantoprazole Sodium 40 mg 02/09/25 09:00 02/18/25 09:58 Pantoprazole 40 Mg Tablet BY MOUTH 40 mg DAILY LAURA Administration Paroxetine HCl 40 mg 02/09/25 09:00 02/18/25 09:58 Paroxetine 20 Mg Tablet PO 40 mg DAILY LAURA Administration Pravastatin Sodium 20 mg 02/09/25 21:00 02/18/25 20:34 Pravastatin Sodium 20 Mg Tablet PO 20 mg QHS LAURA Administration Sodium Chloride 10 ml 02/16/25 22:00 02/19/25 05:22 Central Line Flush IV PUSH 10 ml Q8HR LAURA Administration Sodium Chloride 10 ml 02/16/25 15:47 Central Line Flush IV PUSH PRN PRN with TPN bag changes Sodium Chloride 20 ml 02/16/25 15:47 Central Line Flush IV PUSH PRN PRN after blood draws Vitamin D 50 mcg 02/09/25 09:00 02/18/25 09:58 Cholecalciferol (Vitamin D3) 25 Mcg (1,000 Units) Tablet PO 50 mcg DAILY LAURA Administration Radiology Results: ITS Impressions Foot X-Ray 02/08/25 17:23 IMPRESSION: 1. Significant erosive changes with pathological fracture of distal fifth metatarsal bone suggestive of osteomyelitis with pathologic fracture. Chest X-Ray 02/16/25 15:43 Impression: 1: PICC line tip in the SVC. Labs Labs: Laboratory Results - last 24 hr 02/18/25 02/18/25 02/18/25 11:14 16:21 20:39 WBC RBC Hgb Hct MCV MCH MCHC RDW Plt Count MPV Immature Gran % (Auto) Neut % (Auto) Lymph % (Auto) [place] % (Auto) Eos % (Auto) Baso % (Auto) Lymph # (Auto) [place] # (Auto) Eos # (Auto) Baso # (Auto) Abs Immat Gran (auto) Absolute Neuts (auto) Absolute Nucleated RBC Nucleated RBC % Sodium Potassium Chloride Carbon Dioxide Anion Gap BUN Creatinine Estim Creat Clear Calc Estimated GFR Glucose POC Capillary Glucose 202 H 101 155 H Calcium Total Bilirubin AST ALT Alkaline Phosphatase Total Protein Albumin 02/19/25 02/19/25 04:41 07:38 WBC 9.1 RBC 3.75 L Hgb 11.1 L Hct 33.9 L MCV 90.4 MCH 29.6 MCHC 32.7 RDW 13.9 Plt Count 306 MPV 9.3 Immature Gran % (Auto) 0.3 Neut % (Auto) 62.5 Lymph % (Auto) 24.8 [place] % (Auto) 9.2 H Eos % (Auto) 2.1 Baso % (Auto) 1.1 Lymph # (Auto) 2.26 [place] # (Auto) 0.8 H Eos # (Auto) 0.2 Baso # (Auto) 0.1 Abs Immat Gran (auto) 0.03 Absolute Neuts (auto) 5.7 Absolute Nucleated RBC 0.000 Nucleated RBC % 0.0 Sodium 137 Potassium 4.1 Chloride 105 Carbon Dioxide 29 Anion Gap 3 L BUN 17 Creatinine 1.02 Estim Creat Clear Calc 85 Estimated GFR > 60 Glucose 132 H POC Capillary Glucose 154 H Calcium 9.4 Total Bilirubin 0.5 AST 55 ALT 43 Alkaline Phosphatase 69 Total Protein 6.4 Albumin 3.4 L
[2025-02-19] MEDS: CHOLECALCIFEROL (VITAMIN D3) 25 MCG (1,000 UNITS) TABLET 50 MCG PO (08:21)
[2025-02-19] MEDS: buPROPion HCL SR (12 HR) 150 MG TAB PO (08:22)
[2025-02-19] MEDS: PANTOPRAZOLE 40 MG TABLET BY MOUTH (08:22)
[2025-02-19] MEDS: APIXABAN 5 MG TABLET PO ×2 (08:22→20:06)
[2025-02-19] MEDS: MAGNESIUM OXIDE 400 MG TABLET PO ×2 (08:22→17:29)
[2025-02-19] MEDS: ASPIRIN 81 MG ENTERIC TABLET PO (08:22)
[2025-02-19] MEDS: NICOTINE (*PBKC) 14 MG PATCH 1 PATCH TRANSDERM (08:22)
[2025-02-19] MEDS: LORATADINE 10 MG TABLET PO (08:22)
[2025-02-19] MEDS: CYANOCOBALAMIN 500 MCG TABLET PO (08:22)
[2025-02-19 08:26] VITALS: PULSE 75
[2025-02-19] MEDS: METOPROLOL TARTRATE 50 MG TAB BY MOUTH ×2 (08:26→20:06)
[2025-02-19] MEDS: INSULIN ASPART (*BKC) 100 UNITS/ML SUB-Q (11:46)
[2025-02-19 13:49] VITALS: BP 114/60; PULSE 70; RESP 16; TEMP 36.6; O2SAT 100
--- NOTE | 2025-02-19 14:05 | P.PNIM_ITS ---
Subjective Date/time seen: 02/19/25 0946 Interval history: Pt resting in chair upon my arrival. No additional complaints. Review of Systems Review of Systems: 12 systems were reviewed and are negativ e except for as per HPI. Constitutional: Constitutional: Reports as per HPI and Reports no additional constitutional complaints Eyes: Eyes: Reports as per HPI and Reports no additional eye complaints ENT: Reports system reviewed and no additional complaints, except as documented and Reports Normal hearing present Cardiovascular: Cardiovascular: Reports no additional cardiovascular com plaints Respiratory: Respiratory: Reports as per HPI and Reports no additional respiratory complaints Gastrointestinal: Gastrointestinal: Reports as per HPI and Reports no additional gastrointestinal complaints Musculoskeletal: Musculoskeletal: Reports no additional musculoskeletal complaints Integumentary/Breasts: Skin/Breast: Reports system reviewed and no additional complaints, except as docu Neurologic: Reports system reviewed and no additional complaints, except as documented and Reports Normal hearing present Psychiatric: Psychiatric: Reports no additional psychiatric complaints and Reports as per HPI Hematologic/Lymphatic: Hematologic/Lymphatic: Reports no additional hematologic/lymphatic complaints Allergic/Immunologic: Allergic/Immunologic: Reports no additional allergic/i mmunologic complaints Exam Const: General: cooperative, comfortable, no acute distress and awake HENMT: Head: normocephalic and atraumatic Eyes: General: appearance normal, both eyes and all related structures Neck: Neck: full ROM Resp: Effort & Inspection: normal respiratory effort Auscultation: clear to auscultation bilaterally Cardio: Rate: regular rate Rhythm: abnormal rhythm Other: Patient in atrial fibrillation GI: Inspection: normal to inspection Skin: General skin exam: normal color Other: R pinky toe with wound vac applied, surrounding skin consistent with ethnicity. No feeling to either foot. Valles boot on R foot. -walking boot is intact to the left foot and I did not assess the left foot. Neuro: General: patient oriented x3 Extrem: Other: Subjective paraesthesias to bilateral feet, unable to feel palpation upon my exam Psych: Appearance: grossly normal Mental Status: mental status grossly normal Objective Data Vital Signs Vital Signs: Vital Signs - 24 hr 02/18/25 15:32 02/18/25 16:26 02/18/25 20:00 Temperature Pulse Rate 72 Respiratory Rate Blood Pressure 126/72 Pulse Oximetry Oxygen Delivery Room Air 02/18/25 20:41 02/18/25 22:00 02/19/25 06:00 Temperature 97.2 F L 97.0 F L Pulse Rate 78 77 77 Respiratory Rate 18 18 Blood Pressure 126/77 126/69 Pulse Oximetry 98 96 Oxygen Delivery 02/19/25 08:00 02/19/25 08:26 02/19/25 13:49 Temperature 98 F Pulse Rate 75 70 Respiratory Rate 16 Blood Pressure 114/60 Pulse Oximetry 100 Oxygen Delivery Room Air Intake/Output Intake/Output: Intake & Output 02/16/25 02/17/25 02/18/25 02/19/25 23:59 23:59 23:59 23:59 Intake Total 920 1270 3940 3579 Balance 920 1270 3940 1080 Meds/Results Medications: Active Medications Generic Name Dose Route Start Last Admin Trade Name Freq PRN Reason Stop Dose Admin Acetaminophen 650 mg 02/08/25 20:45 Acetaminophen 325 Mg Tablet PO Q4H PRN Mild Pain (1-3) or Fever Hydrocodone Bitart/Acetaminophen 1 tab 02/09/25 12:22 02/12/25 20:16 Hydrocodone/Acetaminophen (*Crx) 5-325 Mg Tablet PO 1 tab Q4H PRN Administration Pain Rated 4-6 Hydrocodone Bitart/Acetaminophen 1 tab 02/09/25 12:22 Hydrocodone/Acetaminophen (*Crx) 7.5-325 Mg Tablet PO Q4H PRN Pain Rated 7-10 Albuterol 2 puff 02/09/25 04:10 Albuterol Sulfate (*Sp) Aerosol 1 Puff INHALATION Q6HRT PRN SHORTNESS OF BREATH/WHEEZING Apixaban 5 mg 02/11/25 09:00 02/19/25 08:22 Apixaban 5 Mg Tablet PO 5 mg Q12HR LAURA Administration Aspirin 81 mg 02/11/25 09:00 02/19/25 08:22 Aspirin 81 Mg Enteric Tablet PO 81 mg QAM LAURA Administration Bupropion HCl 150 mg 02/09/25 09:00 02/19/25 08:22 Bupropion Hcl Sr (12 Hr) 150 Mg Tab PO 150 mg DAILY LAURA Administration Clonazepam 0.5 mg 02/09/25 04:06 02/18/25 20:37 Clonazepam (*Crx) 0.5 Mg Tablet PO 0.5 mg BID PRN Administration Anxiety Cyanocobalamin 500 mcg 02/09/25 09:00 02/19/25 08:22 Cyanocobalamin 500 Mcg Tablet PO 03/11/25 08:59 500 mcg DAILY LAURA Administration Dextrose 12.5 gm 02/09/25 05:45 Dextrose 50% 25 Gm/50 Ml Syringe IV PUSH PRN PRN Hypoglycemia Protocol Fentanyl Citrate 25 mcg 02/09/25 15:38 Fentanyl Citrate Inj (*Crx) 100 Mcg/2 Ml Vial IV PUSH Q2M PRN Pain Gabapentin 300 mg 02/09/25 06:00 02/19/25 13:08 Gabapentin 300 Mg Capsule PO 300 mg Q8HR LAURA Administration Glucagon 1 mg 02/09/25 04:10 Glucagon For Inj 1 Mg Vial IM PRN PRN Hypoglycemia Protocol Glucose 15 gm 02/09/25 04:10 Glucose Oral Gel 15 Gm Of Glucse In 37.5 Gm Tube PO PRN PRN Hypoglycemia Protocol Dextrose 1,000 mls @ 100 mls/hr 02/09/25 05:45 Dextrose 5% 1,000 Ml IVPB PRN PRN Hypoglycemia Protocol Cefepime HCl 1 gm/ Sodium 50 mls @ 100 mls/hr 02/16/25 18:00 02/19/25 09:54 Chloride IVPB Infused Q8H LAURA Infusion Insulin Aspart 2 - 5 units 02/11/25 08:00 02/19/25 11:46 Insulin Aspart (*Bkc) 100 Units/Ml SUB-Q 2 units TIDWM LAURA Administration Protocol Loratadine 10 mg 02/09/25 09:00 02/19/25 08:22 Loratadine 10 Mg Tablet PO 10 mg DAILY LAURA Administration Magnesium Oxide 400 mg 02/09/25 09:00 02/19/25 08:22 Magnesium Oxide 400 Mg Tablet PO 400 mg BID LUARA Administration Melatonin 5 mg 02/09/25 21:00 02/18/25 20:34 Melatonin 5 Mg Tablet PO 5 mg HS LAURA Administration Metoprolol Tartrate 50 mg 02/09/25 09:00 02/19/25 08:26 Metoprolol Tartrate 50 Mg Tab BY MOUTH 50 mg Q12HR LAURA Administration Morphine Sulfate 4 mg 02/09/25 17:03 Morphine Sulfate (*Crx) 4 Mg/Ml Inj IV PUSH Q4H PRN Pain Rated 7-10 Nicotine 1 patch 02/08/25 21:25 02/19/25 08:22 Nicotine (*Pbkc) 14 Mg Patch TRANSDERM 1 patch DAILY LAURA Administration (Paliperidone 3 Mg 1 each 02/12/25 21:00 02/18/25 21:00 Oral Tablet, PO 03/14/25 20:59 1 each Extended Release 24 HS LAURA Administration Hr) Pantoprazole Sodium 40 mg 02/09/25 09:00 02/19/25 08:22 Pantoprazole 40 Mg Tablet BY MOUTH 40 mg DAILY LAURA Administration Paroxetine HCl 40 mg 02/09/25 09:00 02/19/25 08:22 Paroxetine 20 Mg Tablet PO 40 mg DAILY LAURA Administration Pravastatin Sodium 20 mg 02/09/25 21:00 02/18/25 20:34 Pravastatin Sodium 20 Mg Tablet PO 20 mg QHS LAURA Administration Sodium Chloride 10 ml 02/16/25 22:00 02/19/25 13:08 Central Line Flush IV PUSH 10 ml Q8HR LAURA Administration Sodium Chloride 10 ml 02/16/25 15:47 Central Line Flush IV PUSH PRN PRN with TPN bag changes Sodium Chloride 20 ml 02/16/25 15:47 Central Line Flush IV PUSH PRN PRN after blood draws Vitamin D 50 mcg 02/09/25 09:00 02/19/25 08:21 Cholecalciferol (Vitamin D3) 25 Mcg (1,000 Units) Tablet PO 50 mcg DAILY LAURA Administration Radiology Results: ITS Impressions Foot X-Ray 02/08/25 17:23 IMPRESSION: 1. Significant erosive changes with pathological fracture of distal fifth metatarsal bone suggestive of osteomyelitis with pathologic fracture. Chest X-Ray 02/16/25 15:43 Impression: 1: PICC line tip in the SVC. Labs Labs: Laboratory Results - last 24 hr 02/18/25 02/18/25 02/19/25 16:21 20:39 04:41 WBC 9.1 RBC 3.75 L Hgb 11.1 L Hct 33.9 L MCV 90.4 MCH 29.6 MCHC 32.7 RDW 13.9 Plt Count 306 MPV 9.3 Immature Gran % (Auto) 0.3 Neut % (Auto) 62.5 Lymph % (Auto) 24.8 [place] % (Auto) 9.2 H Eos % (Auto) 2.1 Baso % (Auto) 1.1 Lymph # (Auto) 2.26 [place] # (Auto) 0.8 H Eos # (Auto) 0.2 Baso # (Auto) 0.1 Abs Immat Gran (auto) 0.03 Absolute Neuts (auto) 5.7 Absolute Nucleated RBC 0.000 Nucleated RBC % 0.0 Sodium 137 Potassium 4.1 Chloride 105 Carbon Dioxide 29 Anion Gap 3 L BUN 17 Creatinine 1.02 Estim Creat Clear Calc 85 Estimated GFR > 60 Glucose 132 H POC Capillary Glucose 101 155 H Calcium 9.4 Total Bilirubin 0.5 AST 55 ALT 43 Alkaline Phosphatase 69 Total Protein 6.4 Albumin 3.4 L 02/19/25 02/19/25 07:38 11:18 WBC RBC Hgb Hct MCV MCH MCHC RDW Plt Count MPV Immature Gran % (Auto) Neut % (Auto) Lymph % (Auto) [place] % (Auto) Eos % (Auto) Baso % (Auto) Lymph # (Auto) [place] # (Auto) Eos # (Auto) Baso # (Auto) Abs Immat Gran (auto) Absolute Neuts (auto) Absolute Nucleated RBC Nucleated RBC % Sodium Potassium Chloride Carbon Dioxide Anion Gap BUN Creatinine Estim Creat Clear Calc Estimated GFR Glucose POC Capillary Glucose 154 H 214 H Calcium Total Bilirubin AST ALT Alkaline Phosphatase Total Protein Albumin Assessment and Plan Assessment and Plan (1) Osteomyelitis: Code(s): M86.9 - Osteomyelitis, unspecified Status: Acute Assessment and Plan: Significant erosive changes with pathological fracture of distal fifth metatarsal bone suggestive of osteomyelitis with pathologic fracture.s/p incision and drainage of right foot abscess with transmetatarsal amputation of right 5th toe per Dr. Delgado on 02/09 -surgery following -->Surgery signed off, will f/u with Dr. Delgado in x1 week after discharge. To go to SNF with wound vac -->Wound vac dressing changed today -Eliquis and aspirin restarted -BC with no growth Wound culture on 02/09 resulted as enterococcus faecalis (which is likely contaminant as the wound had no drainage at the time) and Pseudomonas - PSAR likely real pathogen Wound VAC in place ID consulted for antibiotic guidance continue levofloxacin, DC Zofran and other QTC prolonging medications --Repeat EKG today yielding QTc 471 (yesterday 469) -PT/OT consult weight-bearing through heel of right foot, SNF at discharge, pending auth Per ID, pt to be switched to IV cefepime x6 weeks starting 02/16. While pt is awaiting placement, pt to be on 1g cefepime q8 hours and then once he gets to the facility, pt will be switched to 2g cefepime q12 hours through 03/22/2025. PICC line placed 02/16, awaiting [facility] auth. (2) Type 2 DM with CKD stage 3 and hypertension: Code(s): E11.22 - Type 2 diabetes mellitus with diabetic chronic kidney disease; I12.9 - Hypertensive chronic kidney disease with stage 1 through stage 4 chronic kidney disease, or unspecified chronic kidney disease; N18.30 - Chronic kidney disease, stage 3 unspecified Status: Chronic Assessment and Plan: -accu checks -avoid hypoglycemia -Hgba1c 02/09/25 6.6% -SSI low dose with meals (3) Peripheral neuropathy: Code(s): G62.9 - Polyneuropathy, unspecified Status: Acute Assessment and Plan: -continue with gabapentin, GFR >60 (4) COPD (chronic obstructive pulmonary disease): Code(s): J44.9 - Chronic obstructive pulmonary disease, unspecified Status: Acute Assessment and Plan: -continue with inhaler (5) CASI on CPAP: Code(s): G47.33 - Obstructive sleep apnea (adult) (pediatric); Z99.89 - Dependence on other enabling machines and devices Status: Chronic Assessment and Plan: -auto titrate CPAP/BiPAP home settings. (6) Tobacco abuse: Code(s): Z72.0 - Tobacco use Status: Chronic Assessment and Plan: -smoking cessation has been initiated. Continue nicotine patch (7) Hypertension: Code(s): I10 - Essential (primary) hypertension Status: Acute Assessment and Plan: 114/60 today Will continue to trend (8) Anxiety: Code(s): F41.9 - Anxiety disorder, unspecified Status: Acute Assessment and Plan: -continue with hydroxyzine, clonazepam, and paroxetine (9) Depression: Code(s): F32.A - Depression, unspecified Status: Acute Assessment and Plan: -continue with bupropion (10) Schizophrenia: Code(s): F20.9 - Schizophrenia, unspecified Status: Acute Assessment and Plan: -paliperidone is nonformulary. Requesting family bring in from home Plan Continue to treat with IV PICC abx cefepime for osteomyelitis, pending SNF placement auth Quality VTE Prophylaxis VTE prophylaxis: pharmacologic ordered (home eliquis)
--- NOTE | 2025-02-19 14:28 | P.PNGS_ITS ---
Progress Note: A&P Assessment and Plan (1) Diabetic foot infection: Code(s): E11.628 - Type 2 diabetes mellitus with other skin complications; L08.9 - Local infection of the skin and subcutaneous tissue, unspecified Status: Acute Assessment and Plan: * POD10 s/p I&D of R lateral foot abscess and amputation of R 5th toe and metatarsal head. Wound vac dressing changed today. Wound is healing well with granulation tissue forming. Will likely remove sutures prior to discharge. * He is ok to discharge with the wound VAC from our standpoint to SNF when placement is confirmed. CC awaiting insurance auth. He will f/u with Dr. Delgado in the wound clinic in 1 week after discharge. Continue antibiotics per ID recommendations. (2) Osteomyelitis: Code(s): M86.9 - Osteomyelitis, unspecified Status: Acute Assessment and Plan: * Continue antibiotics per ID recommendations Plan Discussed patient's case and plan of care with Dr. Alba. Subjective Subjective Date/Time Seen: 02/19/25 14:28 Post Op day: 10 (Incision and drainage of right foot abscess with transmetatarsal amputation of right 5th toe) Patient reports: no new complaints and afebrile Interval history: No acute changes over the weekend. No specific complaints. Awaiting insurance authorization. Presenting with wound care nurses for wound vac change. Exam Narrative: right foot wound vac dressing removed, no necrotic tissue or purulent drainage, there is pink healthy granulation tissue forming throughout more of the wound and tissue is now covering the 5th metatarsal. (see wound care note for measurements) Able to wiggle remaininig toes. Sutures still intact with skin edges well approximated. No erythema or edema of the right foot. Objective Data Vital Signs Vital Signs: Vital Signs - 24 hr 02/18/25 15:32 02/18/25 16:26 02/18/25 20:00 Temperature Pulse Rate 72 Respiratory Rate Blood Pressure 126/72 Pulse Oximetry Oxygen Delivery Room Air 02/18/25 20:41 02/18/25 22:00 02/19/25 06:00 Temperature 97.2 F L 97.0 F L Pulse Rate 78 77 77 Respiratory Rate 18 18 Blood Pressure 126/77 126/69 Pulse Oximetry 98 96 Oxygen Delivery 02/19/25 08:00 02/19/25 08:26 02/19/25 13:49 Temperature 98 F Pulse Rate 75 70 Respiratory Rate 16 Blood Pressure 114/60 Pulse Oximetry 100 Oxygen Delivery Room Air Intake/Output Intake/Output: Intake & Output 02/16/25 02/17/25 02/18/25 02/19/25 23:59 23:59 23:59 23:59 Intake Total 920 1270 3940 1080 Balance 920 1270 3940 1080 Meds/Results Medications: Active Medications Generic Name Dose Route Start Last Admin Trade Name Freq PRN Reason Stop Dose Admin Acetaminophen 650 mg 02/08/25 20:45 Acetaminophen 325 Mg Tablet PO Q4H PRN Mild Pain (1-3) or Fever Hydrocodone Bitart/Acetaminophen 1 tab 02/09/25 12:22 02/12/25 20:16 Hydrocodone/Acetaminophen (*Crx) 5-325 Mg Tablet PO 1 tab Q4H PRN Administration Pain Rated 4-6 Hydrocodone Bitart/Acetaminophen 1 tab 02/09/25 12:22 Hydrocodone/Acetaminophen (*Crx) 7.5-325 Mg Tablet PO Q4H PRN Pain Rated 7-10 Albuterol 2 puff 02/09/25 04:10 Albuterol Sulfate (*Sp) Aerosol 1 Puff INHALATION Q6HRT PRN SHORTNESS OF BREATH/WHEEZING Apixaban 5 mg 02/11/25 09:00 02/19/25 08:22 Apixaban 5 Mg Tablet PO 5 mg Q12HR LAURA Administration Aspirin 81 mg 02/11/25 09:00 02/19/25 08:22 Aspirin 81 Mg Enteric Tablet PO 81 mg QAM LAURA Administration Bupropion HCl 150 mg 02/09/25 09:00 02/19/25 08:22 Bupropion Hcl Sr (12 Hr) 150 Mg Tab PO 150 mg DAILY LAURA Administration Clonazepam 0.5 mg 02/09/25 04:06 02/18/25 20:37 Clonazepam (*Crx) 0.5 Mg Tablet PO 0.5 mg BID PRN Administration Anxiety Cyanocobalamin 500 mcg 02/09/25 09:00 02/19/25 08:22 Cyanocobalamin 500 Mcg Tablet PO 03/11/25 08:59 500 mcg DAILY LAURA Administration Dextrose 12.5 gm 02/09/25 05:45 Dextrose 50% 25 Gm/50 Ml Syringe IV PUSH PRN PRN Hypoglycemia Protocol Fentanyl Citrate 25 mcg 02/09/25 15:38 Fentanyl Citrate Inj (*Crx) 100 Mcg/2 Ml Vial IV PUSH Q2M PRN Pain Gabapentin 300 mg 02/09/25 06:00 02/19/25 13:08 Gabapentin 300 Mg Capsule PO 300 mg Q8HR LAURA Administration Glucagon 1 mg 02/09/25 04:10 Glucagon For Inj 1 Mg Vial IM PRN PRN Hypoglycemia Protocol Glucose 15 gm 02/09/25 04:10 Glucose Oral Gel 15 Gm Of Glucse In 37.5 Gm Tube PO PRN PRN Hypoglycemia Protocol Dextrose 1,000 mls @ 100 mls/hr 02/09/25 05:45 Dextrose 5% 1,000 Ml IVPB PRN PRN Hypoglycemia Protocol Insulin Aspart 2 - 5 units 02/11/25 08:00 02/19/25 11:46 Insulin Aspart (*Bkc) 100 Units/Ml SUB-Q 2 units TIDWM LAURA Administration Protocol Levofloxacin 750 mg 02/19/25 18:00 Levofloxacin 750 Mg Tablet PO 03/22/25 23:59 DAILY@1800 LAURA Loratadine 10 mg 02/09/25 09:00 02/19/25 08:22 Loratadine 10 Mg Tablet PO 10 mg DAILY LAURA Administration Magnesium Oxide 400 mg 02/09/25 09:00 02/19/25 08:22 Magnesium Oxide 400 Mg Tablet PO 400 mg BID LAURA Administration Melatonin 5 mg 02/09/25 21:00 02/18/25 20:34 Melatonin 5 Mg Tablet PO 5 mg HS LAURA Administration Metoprolol Tartrate 50 mg 02/09/25 09:00 02/19/25 08:26 Metoprolol Tartrate 50 Mg Tab BY MOUTH 50 mg Q12HR LAURA Administration Morphine Sulfate 4 mg 02/09/25 17:03 Morphine Sulfate (*Crx) 4 Mg/Ml Inj IV PUSH Q4H PRN Pain Rated 7-10 Nicotine 1 patch 02/08/25 21:25 02/19/25 08:22 Nicotine (*Pbkc) 14 Mg Patch TRANSDERM 1 patch DAILY LAURA Administration (Paliperidone 3 Mg 1 each 02/12/25 21:00 02/18/25 21:00 Oral Tablet, PO 03/14/25 20:59 1 each Extended Release 24 HS LAURA Administration Hr) Pantoprazole Sodium 40 mg 02/09/25 09:00 02/19/25 08:22 Pantoprazole 40 Mg Tablet BY MOUTH 40 mg DAILY LAURA Administration Paroxetine HCl 40 mg 02/09/25 09:00 02/19/25 08:22 Paroxetine 20 Mg Tablet PO 40 mg DAILY LAURA Administration Pravastatin Sodium 20 mg 02/09/25 21:00 02/18/25 20:34 Pravastatin Sodium 20 Mg Tablet PO 20 mg QHS LAURA Administration Sodium Chloride 10 ml 02/16/25 22:00 02/19/25 13:08 Central Line Flush IV PUSH 10 ml Q8HR LAURA Administration Sodium Chloride 10 ml 02/16/25 15:47 Central Line Flush IV PUSH PRN PRN with TPN bag changes Sodium Chloride 20 ml 02/16/25 15:47 Central Line Flush IV PUSH PRN PRN after blood draws Vitamin D 50 mcg 02/09/25 09:00 02/19/25 08:21 Cholecalciferol (Vitamin D3) 25 Mcg (1,000 Units) Tablet PO 50 mcg DAILY LAURA Administration Radiology Results: ITS Impressions Foot X-Ray 02/08/25 17:23 IMPRESSION: 1. Significant erosive changes with pathological fracture of distal fifth metatarsal bone suggestive of osteomyelitis with pathologic fracture. Chest X-Ray 02/16/25 15:43 Impression: 1: PICC line tip in the SVC. Labs Labs: Laboratory Results - last 24 hr 02/18/25 02/18/25 02/19/25 16:21 20:39 04:41 WBC 9.1 RBC 3.75 L Hgb 11.1 L Hct 33.9 L MCV 90.4 MCH 29.6 MCHC 32.7 RDW 13.9 Plt Count 306 MPV 9.3 Immature Gran % (Auto) 0.3 Neut % (Auto) 62.5 Lymph % (Auto) 24.8 [place] % (Auto) 9.2 H Eos % (Auto) 2.1 Baso % (Auto) 1.1 Lymph # (Auto) 2.26 [place] # (Auto) 0.8 H Eos # (Auto) 0.2 Baso # (Auto) 0.1 Abs Immat Gran (auto) 0.03 Absolute Neuts (auto) 5.7 Absolute Nucleated RBC 0.000 Nucleated RBC % 0.0 Sodium 137 Potassium 4.1 Chloride 105 Carbon Dioxide 29 Anion Gap 3 L BUN 17 Creatinine 1.02 Estim Creat Clear Calc 85 Estimated GFR > 60 Glucose 132 H POC Capillary Glucose 101 155 H Calcium 9.4 Total Bilirubin 0.5 AST 55 ALT 43 Alkaline Phosphatase 69 Total Protein 6.4 Albumin 3.4 L 02/19/25 02/19/25 07:38 11:18 WBC RBC Hgb Hct MCV MCH MCHC RDW Plt Count MPV Immature Gran % (Auto) Neut % (Auto) Lymph % (Auto) [place] % (Auto) Eos % (Auto) Baso % (Auto) Lymph # (Auto) [place] # (Auto) Eos # (Auto) Baso # (Auto) Abs Immat Gran (auto) Absolute Neuts (auto) Absolute Nucleated RBC Nucleated RBC % Sodium Potassium Chloride Carbon Dioxide Anion Gap BUN Creatinine Estim Creat Clear Calc Estimated GFR Glucose POC Capillary Glucose 154 H 214 H Calcium Total Bilirubin AST ALT Alkaline Phosphatase Total Protein Albumin
[2025-02-19] MEDS: PRAVASTATIN SODIUM 20 MG TABLET PO (20:05)
[2025-02-19 20:06] VITALS: PULSE 72
[2025-02-19] MEDS: clonazePAM (*CRX) 0.5 MG TABLET PO (20:06)
[2025-02-19] MEDS: MELATONIN 5 MG TABLET PO (20:06)
[2025-02-19] MEDS: CEFEPIME 2 GM in SODIUM CHLORIDE 0.9% IV 50 ML 100 ML IVPB (20:10)
[2025-02-19 21:43] VITALS: PULSE 100; RESP 20; O2SAT 97
[2025-02-19 22:00] VITALS: BP 124/74; PULSE 80; RESP 18; TEMP 36.6; O2SAT 98
[2025-02-20] MEDS: GABAPENTIN 300 MG CAPSULE PO ×2 (05:05→13:22)
[2025-02-20] MEDS: CENTRAL LINE FLUSH 10 ML IV PUSH ×2 (05:05→13:22)
[2025-02-20 05:18] LABS: Hematocrit 36.0 % (42.0-52.0); Hemoglobin 11.7 g/dL (14.0-18.0); Immature Granulocyte Percent A 0.4 % (0-0.5); Lymphocytes Absolute Auto 1.97 K/mm3 (0.9-3.2); Mean Corpuscular HGB Conc 32.5 g/dl (32-36); Mean Corpuscular Hemoglobin 29.5 pg (26-34); Mean Corpuscular Volume 90.7 fl (80-100); Nucleated Red Blood Cells Absolute Auto 0.000 K/mm3 (0.0-0.012); Nucleated Red Blood Cells Perc 0.0 % (0.0-0.2); Platelet Count Result 326 k/mm3 (150-375); Red Blood Count 3.97 M/mm3 (4.6-6.20); White Blood Count 8.9 K/mm3 (4.5-10.0)
[2025-02-20 05:28] LABS: Alanine Aminotransferase 43 U/L (6-50); Albumin Level 3.7 g/dL (3.5-5.1); Alkaline Phosphatase 74 U/L (38-126); Anion Gap 2 mmol/L (4-12); Aspartate Amino Transferase 43 U/L (17-59); Bilirubin,Total 0.6 mg/dL (0.2-1.3); Blood Urea Nitrogen 16 mg/dL (9-20); Calcium 9.5 mg/dL (8.4-10.2); Carbon Dioxide 30 mmol/L (22-30); Chloride 105 mmol/L (98-107); Estimated CRCL calculation 89 ml/min; Estimated Glomerular Filt Rate > 60; Glucose 142 mg/dL (65-110); Potassium 4.0 mmol/L (3.4-5.0); Sodium 137 mmol/L (137-145); Total Protein 6.9 g/dL (6.3-8.2)
[2025-02-20 06:00] VITALS: BP 135/94; PULSE 85; RESP 18; TEMP 36.2; O2SAT 98
[2025-02-20] MEDS: MAGNESIUM OXIDE 400 MG TABLET PO ×2 (08:45→17:07)
[2025-02-20] MEDS: CYANOCOBALAMIN 500 MCG TABLET PO (08:45)
[2025-02-20] MEDS: PANTOPRAZOLE 40 MG TABLET BY MOUTH (08:45)
[2025-02-20 08:46] VITALS: PULSE 80
[2025-02-20] MEDS: APIXABAN 5 MG TABLET PO (08:46)
[2025-02-20] MEDS: METOPROLOL TARTRATE 50 MG TAB BY MOUTH (08:46)
[2025-02-20] MEDS: LORATADINE 10 MG TABLET PO (08:46)
[2025-02-20] MEDS: ASPIRIN 81 MG ENTERIC TABLET PO (08:46)
[2025-02-20] MEDS: buPROPion HCL SR (12 HR) 150 MG TAB PO (08:46)
[2025-02-20] MEDS: CHOLECALCIFEROL (VITAMIN D3) 25 MCG (1,000 UNITS) TABLET 50 MCG PO (08:46)
[2025-02-20] MEDS: NICOTINE (*PBKC) 14 MG PATCH 1 PATCH TRANSDERM (08:47)
[2025-02-20] MEDS: CEFEPIME 2 GM in SODIUM CHLORIDE 0.9% IV 50 ML 100 ML IVPB (08:47)
--- NOTE | 2025-02-20 10:58 | P.DS_ITS ---
DS: Admitting Diagnosis Discharge Date 02/20/2025 Admitting Diagnosis Foot ulcer, foot pain DS: Discharge Diagnosis Discharge Diagnosis (1) Osteomyelitis: Code(s): M86.9 - Osteomyelitis, unspecified Status: Acute Assessment and Plan: Significant erosive changes with pathological fracture of distal fifth metatarsal bone suggestive of osteomyelitis with pathologic fracture.s/p incision and drainage of right foot abscess with transmetatarsal amputation of right 5th toe per Dr. Delgado on 02/09 -surgery following -->Surgery signed off, will f/u with Dr. Delgado in x1 week after discharge. To go to SNF with wound vac -->Wound vac dressing changed today -Eliquis and aspirin restarted -BC with no growth Wound culture on 02/09 resulted as enterococcus faecalis (which is likely contaminant as the wound had no drainage at the time) and Pseudomonas - PSAR likely real pathogen Wound VAC in place ID consulted for antibiotic guidance continue levofloxacin, DC Zofran and other QTC prolonging medications --Repeat EKG today yielding QTc 471 (yesterday 469) -PT/OT consult weight-bearing through heel of right foot, SNF at discharge today Per ID, pt to be switched to IV cefepime x6 weeks starting 02/16. Continue with 2g cefepime q12 hours through 03/22/2025. PICC line placed 02/16, continue at [facility] at discharge today. (2) Type 2 DM with CKD stage 3 and hypertension: Code(s): E11.22 - Type 2 diabetes mellitus with diabetic chronic kidney disease; I12.9 - Hypertensive chronic kidney disease with stage 1 through stage 4 chronic kidney disease, or unspecified chronic kidney disease; N18.30 - Chronic kidney disease, stage 3 unspecified Status: Chronic Assessment and Plan: -accu checks -avoid hypoglycemia -Hgba1c 02/09/25 6.6% -SSI low dose with meals (3) Peripheral neuropathy: Code(s): G62.9 - Polyneuropathy, unspecified Status: Acute Assessment and Plan: -continue with gabapentin, GFR >60 (4) COPD (chronic obstructive pulmonary disease): Code(s): J44.9 - Chronic obstructive pulmonary disease, unspecified Status: Acute Assessment and Plan: -continue with inhaler (5) CASI on CPAP: Code(s): G47.33 - Obstructive sleep apnea (adult) (pediatric); Z99.89 - Dependence on other enabling machines and devices Status: Chronic Assessment and Plan: -auto titrate CPAP/BiPAP home settings. (6) Tobacco abuse: Code(s): Z72.0 - Tobacco use Status: Chronic Assessment and Plan: -smoking cessation has been initiated. (7) Hypertension: Code(s): I10 - Essential (primary) hypertension Status: Acute Assessment and Plan: Stable upon discharge, continue with home meds (8) Anxiety: Code(s): F41.9 - Anxiety disorder, unspecified Status: Acute Assessment and Plan: -continue with hydroxyzine, clonazepam, and paroxetine (9) Depression: Code(s): F32.A - Depression, unspecified Status: Acute Assessment and Plan: -continue with bupropion (10) Schizophrenia: Code(s): F20.9 - Schizophrenia, unspecified Status: Acute Assessment and Plan: -paliperidone is nonformulary. Requesting family bring in from home Plan Pt to be discharged to [facility] today. Continue to treat with IV PICC abx cefepime for osteomyelitis at [facility]. DS: Summary Hospital Course Reason for hospitalization: Osteomyelitis Hospital Course: The patient is a 69-year-old male with a history of type 2 diabetes mellitus (with CKD stage 3 and hypertension), morbid obesity, atrial fibrillation (on Eliquis), coronary artery disease, COPD, CASI, and multiple psychiatric comorbidities, who presented with a several-month history of a nonhealing ulcer on the right lateral plantar foot involving the fifth toe. The wound had progressively worsened since November, with recent evaluation by wound care and podiatry revealing exposed bone and purulent drainage. On admission, he was afebrile and hemodynamically stable, with laboratory studies notable for mild anemia, elevated inflammatory markers (ESR 55, CRP 6.6), and a mildly elevated WBC. Foot x-ray demonstrated significant erosive changes and a pathologic fracture of the distal fifth metatarsal, highly suggestive of osteomyelitis. The patient was started empirically on IV vancomycin, cefepime, and metronidazole. Blood and wound cultures were obtained; wound culture later grew Pseudomonas aeruginosa (PSAR, considered the likely pathogen) and Enterococcus faecalis (likely contaminant). He was made NPO and anticoagulation was held in anticipation of surgery. Surgical consultation determined that the extent of infection and necrotic bone warranted operative intervention. On hospital day 2, he underwent incision and drainage of the right foot abscess with transmetatarsal amputation of the right fifth toe and metatarsal head. Intraoperative findings included necrotic bone and purulent material. Postoperatively, a wound VAC was applied, and the patient was monitored closely for signs of systemic infection or wound complications. Infectious disease was consulted for antibiotic management. Based on culture results and sensitivities, the patient was transitioned to IV cefepime 2g every 12 hours via PICC line for a planned 6-week course, to continue at the alf facility (SNF) after discharge. Levofloxacin was briefly considered but avoided due to QTc prolongation and drug interactions (pt on multiple psychiatric medications. Blood cultures remained negative throughout the admission. Weekly labs (CBC, CMP, ESR, CRP) were arranged for ongoing monitoring during outpatient IV therapy at SNF. Glycemic control was managed with sliding scale insulin and continuation of his home oral agents as tolerated, with avoidance of hypoglycemia. His most recent A1c was 6.6%. Anticoagulation with Eliquis and aspirin was resumed postoperatively once hemostasis was assured. His other chronic conditions, including hypertension, COPD, CASI, and psychiatric disorders, were managed with home medications and supportive care. Smoking cessation counseling was provided. The patient?s postoperative course was uncomplicated. The wound demonstrated healthy granulation tissue with no evidence of recurrent infection or dehiscence. He remained afebrile and hemodynamically stable, with improving inflammatory markers and no leukocytosis. Physical and occupational therapy evaluated him for safe discharge, recommending weight-bearing through the heel of the right foot and continued use of a walker. He was discharged in stable condition to [facility] with the wound VAC in place, to continue IV cefepime through 03/22/2025, and with follow-up arranged with general surgery and his primary care provider. Status at Discharge Overall status at discharge: patient is progressing back to baseline Time Spent with Patient Time attestation: Total time spent providing and/or coordinating discharge services: Time spent: Greater than 30 minutes Exam Const: General: cooperative, comfortable, no acute distress, well developed, awake, Physically active, average body habitus and well nourished Nutritional Appearance: average body habitus and well nourished Orientat ion/consciousness: oriented to person, oriented to place, oriented to time and patient oriented x3 HENMT: Head: normal to inspection, No palpable skull fracture present, normocephalic, atraumatic and abrasion Ears: hearing grossly normal bilaterally and external ears normal Eyes: General: appearance normal, both eyes and all related structures Alignment and Position: alignment normal Periorbital: periorbital findings normal Eyelids: eyelids normal Pupils: Equal, round and reactive pupils present Neck: Neck: normal visual inspection, full ROM and no lymphadenopathy Chest: Chest palpation & inspection: normal inspection of the chest Resp: Effort & Inspection: normal respiratory effort Auscultation: clear to auscultation bilaterally Cardio: Palpation: normal PMI Rate: regular rate Rhythm: abnormal rhythm Heart sounds: S1 normal heart sound present and S2 normal heart sound present Peripheral pulses: Peripheral pulses 2+ throughout Other: Patient in atrial fibrillation GI: Inspection: normal to inspection Auscultation: normal bowel sounds Rectal Exam: deferred Skin: General skin exam: normal color Lesions: no lesions Rashes: no rashes Trauma: no lacerations or abrasions Wounds: no wounds Hair: normal Nails: normal Other: R pinky toe with wound vac applied, surrounding skin consistent with ethnicity. No feeling to either foot. Valles boot on R foot. -walking boot is intact to the left foot and I did not assess the left foot. Neuro: General: oriented to person, oriented to place, oriented to time and patient oriented x3 Cranial nerves: Yes Equal, round and reactive pupils present and Yes Normal hearing present Cognition (Neuro): normal cognition Speech: normal speech Motor exam (neuro): Normal motor muscle tone present throughout Sensory Exam: normal sensation Extrem: General: normal to inspection and normal exam except as noted Right upper extremity: normal to inspection and shoulder/upper arm Left upper extremity: normal to inspection and shoulder/upper arm Right lower extremity: normal to inspection Left lower extremity: normal to inspection Other: Subjective paraesthesias to bilateral feet, unable to feel palpation upon my exam Psych: Appearance: grossly normal Mental Status: mental status grossly normal Speech and movement: Normal speech and movement present Affect: normal affect Attitude: cooperative Thought process: Normal thought process present DS: Data Data Completed and Pending Completed studies during hospitalization: Pending at discharge 02/09/25 16:34 Surgical [PTH] Routine Labs on day of discharge: Labs from last 24 hours 02/20/25 02/20/25 02/19/25 08:01 05:04 20:24 WBC 8.9 RBC 3.97 L Hgb 11.7 L Hct 36.0 L MCV 90.7 MCH 29.5 MCHC 32.5 RDW 14.2 Plt Count 326 MPV 9.4 Immature Gran % (Auto) 0.4 Neut % (Auto) 66.0 Lymph % (Auto) 22.1 [place] % (Auto) 8.7 H Eos % (Auto) 1.8 Baso % (Auto) 1.0 Lymph # (Auto) 1.97 [place] # (Auto) 0.8 H Eos # (Auto) 0.2 Baso # (Auto) 0.1 Abs Immat Gran (auto) 0.04 H Absolute Neuts (auto) 5.9 Absolute Nucleated RBC 0.000 Nucleated RBC % 0.0 Sodium 137 Potassium 4.0 Chloride 105 Carbon Dioxide 30 Anion Gap 2 L BUN 16 Creatinine 0.97 Estim Creat Clear Calc 89 Estimated GFR > 60 Glucose 142 H POC Capillary Glucose 154 H 187 H Calcium 9.5 Total Bilirubin 0.6 AST 43 ALT 43 Alkaline Phosphatase 74 Total Protein 6.9 Albumin 3.7 02/19/25 02/19/25 16:32 11:18 WBC RBC Hgb Hct MCV MCH MCHC RDW Plt Count MPV Immature Gran % (Auto) Neut % (Auto) Lymph % (Auto) [place] % (Auto) Eos % (Auto) Baso % (Auto) Lymph # (Auto) [place] # (Auto) Eos # (Auto) Baso # (Auto) Abs Immat Gran (auto) Absolute Neuts (auto) Absolute Nucleated RBC Nucleated RBC % Sodium Potassium Chloride Carbon Dioxide Anion Gap BUN Creatinine Estim Creat Clear Calc Estimated GFR Glucose POC Capillary Glucose 129 H 214 H Calcium Total Bilirubin AST ALT Alkaline Phosphatase Total Protein Albumin Discharge Plan Discharge Attending physician on discharge: Slade Baker Consulting providers: Donavon Delgado; Min Pozo; Marifer Pillai Discharging Clinician: Marifer Pillai Anticipated Discharge Date/Time: 02/20/25 13:00 Patient Disposition: SNF Activity: as tolerated Diet: diabetic Discharge Instructions: 1. You will continue with your IV antibiotics until through the day of 03/22/2025. 2. Follow-up with Dr. Delgado in x1 week to re-examine your foot. 3. You are to have labs drawn weekly while you are on these IV antibiotics: CBC, CMP, SANIYA, CRP These weekly labs are to be faxed to the infectious disease physician, Dr. Roslyn Toussaint, please: [phone] Continue to check your blood pressure and blood sugar at home if applicable. Keep your scheduled appts with your primary care provider and any specialist that you may see. Return to the emergency department if you develop sudden shortness of breath, chest pain, a fever of greater than 101.5, or nausea, vomiting, abd pain, or diarrhea that does not go away. Follow-up with your primary care provider within 1-2 weeks, they will want to be updated on your inpatient stay in the hospital. Thank you for [facility] for your healthcare needs. Patient Instructions: Cefepime (By injection), Apixaban (By mouth), Osteomyelitis (GEN), Cigarette Smoking and Your Health (GEN), Diabetic Neuropathy (GEN) Patient Language: British Stand Alone Forms: General Discharge Information Follow-up/Referrals: Steve,Rosemary Dee NP [Primary Care Provider, Unknown] - 2 Weeks Donavon Delgado MD [Physician, General Surgery] - 1 Week Discharge Medications: New cefepime 2 gram recon soln 2 g IV Q12H 30 Days Continued cholecalciferol (vitamin D3) 250 mcg (10,000 unit) capsule 50 mcg PO DAILY mecobalamin (vitamin B12) 5,000 mcg tablet,disintegrating 500 mcg PO DAILY aspirin [Adult Aspirin Regimen] 81 mg tablet,delayed release (DR/EC) 81 mg PO DAILY clonazepam 0.5 mg tablet 0.5 mg PO BID PRN (Reason: Anxiety) loratadine [Allergy Relief (loratadine)] 10 mg tablet 10 mg PO DAILY bupropion HCl 150 mg tablet sustained-release 12 hr 150 mg PO DAILY melatonin 3 mg capsule 5 mg PO HS paliperidone 6 mg tablet extended release 24hr 6 mg PO HS hydroxyzine HCl 25 mg tablet 25 mg PO BID PRN (Reason: Anxiety) paroxetine HCl 40 mg tablet 40 mg PO DAILY (DME) [facility] [place] See Rx Instructions .Route Qty: 1 0RF Rx Instructions: As directed gabapentin 300 mg capsule 300 mg PO Q8H Rybelsus 3 mg tablet 7 mg PO DAILY@0800 pantoprazole 40 mg tablet,delayed release (DR/EC) See Rx Instructions .ROUTE .COMPLEX Qty: 90 1RF Dose Instruction: TAKE 1 TABLET BY MOUTH DAILY Rx Instructions: TAKE 1 TABLET BY MOUTH DAILY pravastatin 20 mg tablet 20 mg PO DAILY Qty: 90 3RF Patient Comments: takes at bedtime magnesium oxide 400 mg magnesium tablet 400 mg PO BID Qty: 60 6RF albuterol sulfate 90 mcg/actuation HFA aerosol inhaler See Rx Instructions .ROUTE .COMPLEX Qty: 8.5 1RF Dose Instruction: INHALE 2 PUFFS BY MOUTH EVERY 6 HOURS NEEDED FOR SHORTNESS OF BREATH OR WHEEZING Rx Instructions: INHALE 2 PUFFS BY MOUTH EVERY 6 HOURS NEEDED FOR SHORTNESS OF BREATH OR WHEEZING Eliquis 5 mg tablet See Rx Instructions .ROUTE .COMPLEX Qty: 180 0RF Dose Instruction: TAKE 1 TABLET BY MOUTH TWICE DAILY Rx Instructions: TAKE 1 TABLET BY MOUTH TWICE DAILY metoprolol tartrate 50 mg tablet See Rx Instructions .ROUTE .COMPLEX Qty: 60 5RF Dose Instruction: TAKE 1 TABLET BY MOUTH EVERY 12 HOURS Rx Instructions: TAKE 1 TABLET BY MOUTH EVERY 12 HOURS Date of admission: 02/09/25 08:41 Primary Care Provider: Steve,Rosemary Dee Admitting Provider: Jethro Swanson Attending physician on admission: Jethro Swanson Condition: Stable Quality VTE Prophylaxis VTE prophylaxis: pharmacologic ordered (home eliquis) Hospitalist MIPS Heart Failure (Exclusion) Patient has history of Heart Transplant or Left Ventricular Assistive Device?: No IF YES, STOP HERE Heart Failure (Qualifier) Patient has current or prior documentation of LVEF less than or equal to 40%, or mod/servere depressed LVSF?: No IF NO, STOP HERE
[2025-02-20 14:00] VITALS: BP 145/59; PULSE 77; RESP 16; TEMP 36.7; O2SAT 99
--- NOTE | 2025-02-20 15:14 | WNDPHOTO ---
PHOTO ONLY - See Nursing Notes and/ or assessments for documentation.
--- NOTE | 2025-02-20 15:55 | P.PNGS_ITS ---
Progress Note: A&P Assessment and Plan (1) Diabetic foot infection: Code(s): E11.628 - Type 2 diabetes mellitus with other skin complications; L08.9 - Local infection of the skin and subcutaneous tissue, unspecified Status: Acute Assessment and Plan: * POD11 s/p I&D of R lateral foot abscess and amputation of R 5th toe and metatarsal head. Wound VAC removed to be placed at SNF. Wound is healing well and sutures removed. Ok to discharge with the wound VAC from our standpoint to SNF. He will f/u with Dr. Delgado in the wound clinic in 1 week after discharge. Continue antibiotics per ID recommendations. (2) Osteomyelitis: Code(s): M86.9 - Osteomyelitis, unspecified Status: Acute Assessment and Plan: * Continue antibiotics per ID recommendations Plan Discussed patient's case and plan of care with Dr. Delgado. Subjective Subjective Date/Time Seen: 02/20/25 15:55 Patient reports: no new complaints Interval history: No acute changes. No new complaints. Here for wound vac change with wound care nurses. Exam Narrative: right foot wound vac dressing removed, no necrotic tissue or purulent drainage, there is pink healthy granulation tissue forming throughout more of the wound and tissue is now covering the 5th metatarsal. (see wound care note for measurements) Able to wiggle remaininig toes. Sutures removed from lateral aspect of the foot and skin edges well approximated. No erythema or edema of the right foot. Objective Data Vital Signs Vital Signs: Vital Signs - 24 hr 02/19/25 20:00 02/19/25 20:06 02/19/25 21:43 Temperature Pulse Rate 72 100 Respiratory Rate 20 Blood Pressure Pulse Oximetry 97 Oxygen Delivery Room Air Room Air Fraction of Inspired Oxygen 21 02/19/25 22:00 02/20/25 06:00 02/20/25 08:00 Temperature 97.8 F 97.1 F L Pulse Rate 80 85 Respiratory Rate 18 18 Blood Pressure 124/74 135/94 H Pulse Oximetry 98 98 Oxygen Delivery Room Air Fraction of Inspired Oxygen 02/20/25 08:46 02/20/25 14:00 Temperature 98.1 F Pulse Rate 80 77 Respiratory Rate 16 Blood Pressure 145/59 H Pulse Oximetry 99 Oxygen Delivery Fraction of Inspired Oxygen Intake/Output Intake/Output: Intake & Output 02/17/25 02/18/25 02/19/25 02/20/25 23:59 23:59 23:59 23:59 Intake Total 1270 3940 1370 1610 Balance 1270 3940 1370 1610 Meds/Results Medications: Active Medications Generic Name Dose Route Start Last Admin Trade Name Freq PRN Reason Stop Dose Admin Acetaminophen 650 mg 02/08/25 20:45 Acetaminophen 325 Mg Tablet PO Q4H PRN Mild Pain (1-3) or Fever Hydrocodone Bitart/Acetaminophen 1 tab 02/09/25 12:22 02/12/25 20:16 Hydrocodone/Acetaminophen (*Crx) 5-325 Mg Tablet PO 1 tab Q4H PRN Administration Pain Rated 4-6 Hydrocodone Bitart/Acetaminophen 1 tab 02/09/25 12:22 Hydrocodone/Acetaminophen (*Crx) 7.5-325 Mg Tablet PO Q4H PRN Pain Rated 7-10 Albuterol 2 puff 02/09/25 04:10 Albuterol Sulfate (*Sp) Aerosol 1 Puff INHALATION Q6HRT PRN SHORTNESS OF BREATH/WHEEZING Apixaban 5 mg 02/11/25 09:00 02/20/25 08:46 Apixaban 5 Mg Tablet PO 5 mg Q12HR LAURA Administration Aspirin 81 mg 02/11/25 09:00 02/20/25 08:46 Aspirin 81 Mg Enteric Tablet PO 81 mg QAM LAURA Administration Bupropion HCl 150 mg 02/09/25 09:00 02/20/25 08:46 Bupropion Hcl Sr (12 Hr) 150 Mg Tab PO 150 mg DAILY LAURA Administration Clonazepam 0.5 mg 02/09/25 04:06 02/19/25 20:06 Clonazepam (*Crx) 0.5 Mg Tablet PO 0.5 mg BID PRN Administration Anxiety Cyanocobalamin 500 mcg 02/09/25 09:00 02/20/25 08:45 Cyanocobalamin 500 Mcg Tablet PO 03/11/25 08:59 500 mcg DAILY LAURA Administration Dextrose 12.5 gm 02/09/25 05:45 Dextrose 50% 25 Gm/50 Ml Syringe IV PUSH PRN PRN Hypoglycemia Protocol Gabapentin 300 mg 02/09/25 06:00 02/20/25 13:22 Gabapentin 300 Mg Capsule PO 300 mg Q8HR LAURA Administration Glucagon 1 mg 02/09/25 04:10 Glucagon For Inj 1 Mg Vial IM PRN PRN Hypoglycemia Protocol Glucose 15 gm 02/09/25 04:10 Glucose Oral Gel 15 Gm Of Glucse In 37.5 Gm Tube PO PRN PRN Hypoglycemia Protocol Dextrose 1,000 mls @ 100 mls/hr 02/09/25 05:45 Dextrose 5% 1,000 Ml IVPB PRN PRN Hypoglycemia Protocol Cefepime HCl 2 gm/ Sodium 50 mls @ 100 mls/hr 02/19/25 21:00 02/20/25 09:17 Chloride IVPB 03/22/25 21:00 Infused Q12H LAURA Infusion Insulin Aspart 2 - 5 units 02/11/25 08:00 02/20/25 12:28 Insulin Aspart (*Bkc) 100 Units/Ml SUB-Q Not Given TIDWM LAURA Protocol Loratadine 10 mg 02/09/25 09:00 02/20/25 08:46 Loratadine 10 Mg Tablet PO 10 mg DAILY LAURA Administration Magnesium Oxide 400 mg 02/09/25 09:00 02/20/25 08:45 Magnesium Oxide 400 Mg Tablet PO 400 mg BID LAURA Administration Melatonin 5 mg 02/09/25 21:00 02/19/25 20:06 Melatonin 5 Mg Tablet PO 5 mg HS LAURA Administration Metoprolol Tartrate 50 mg 02/09/25 09:00 02/20/25 08:46 Metoprolol Tartrate 50 Mg Tab BY MOUTH 50 mg Q12HR LAURA Administration Nicotine 1 patch 02/08/25 21:25 02/20/25 08:47 Nicotine (*Pbkc) 14 Mg Patch TRANSDERM 1 patch DAILY LAURA Administration (Paliperidone 3 Mg 1 each 02/12/25 21:00 02/19/25 20:09 Oral Tablet, PO 03/14/25 20:59 1 each Extended Release 24 HS LAURA Administration Hr) Pantoprazole Sodium 40 mg 02/09/25 09:00 02/20/25 08:45 Pantoprazole 40 Mg Tablet BY MOUTH 40 mg DAILY LAURA Administration Paroxetine HCl 40 mg 02/09/25 09:00 02/20/25 08:46 Paroxetine 20 Mg Tablet PO 40 mg DAILY LAURA Administration Pravastatin Sodium 20 mg 02/09/25 21:00 02/19/25 20:05 Pravastatin Sodium 20 Mg Tablet PO 20 mg QHS LAURA Administration Sodium Chloride 10 ml 02/16/25 22:00 02/20/25 13:22 Central Line Flush IV PUSH 10 ml Q8HR LAURA Administration Sodium Chloride 10 ml 02/16/25 15:47 Central Line Flush IV PUSH PRN PRN with TPN bag changes Sodium Chloride 20 ml 02/16/25 15:47 Central Line Flush IV PUSH PRN PRN after blood draws Vitamin D 50 mcg 02/09/25 09:00 02/20/25 08:46 Cholecalciferol (Vitamin D3) 25 Mcg (1,000 Units) Tablet PO 50 mcg DAILY LAURA Administration Radiology Results: ITS Impressions Foot X-Ray 02/08/25 17:23 IMPRESSION: 1. Significant erosive changes with pathological fracture of distal fifth metatarsal bone suggestive of osteomyelitis with pathologic fracture. Chest X-Ray 02/16/25 15:43 Impression: 1: PICC line tip in the SVC. Labs Labs: Laboratory Results - last 24 hr 02/19/25 02/19/25 02/20/25 16:32 20:24 05:04 WBC 8.9 RBC 3.97 L Hgb 11.7 L Hct 36.0 L MCV 90.7 MCH 29.5 MCHC 32.5 RDW 14.2 Plt Count 326 MPV 9.4 Immature Gran % (Auto) 0.4 Neut % (Auto) 66.0 Lymph % (Auto) 22.1 [place] % (Auto) 8.7 H Eos % (Auto) 1.8 Baso % (Auto) 1.0 Lymph # (Auto) 1.97 [place] # (Auto) 0.8 H Eos # (Auto) 0.2 Baso # (Auto) 0.1 Abs Immat Gran (auto) 0.04 H Absolute Neuts (auto) 5.9 Absolute Nucleated RBC 0.000 Nucleated RBC % 0.0 Sodium 137 Potassium 4.0 Chloride 105 Carbon Dioxide 30 Anion Gap 2 L BUN 16 Creatinine 0.97 Estim Creat Clear Calc 89 Estimated GFR > 60 Glucose 142 H POC Capillary Glucose 129 H 187 H Calcium 9.5 Total Bilirubin 0.6 AST 43 ALT 43 Alkaline Phosphatase 74 Total Protein 6.9 Albumin 3.7 02/20/25 02/20/25 08:01 11:31 WBC RBC Hgb Hct MCV MCH MCHC RDW Plt Count MPV Immature Gran % (Auto) Neut % (Auto) Lymph % (Auto) [place] % (Auto) Eos % (Auto) Baso % (Auto) Lymph # (Auto) [place] # (Auto) Eos # (Auto) Baso # (Auto) Abs Immat Gran (auto) Absolute Neuts (auto) Absolute Nucleated RBC Nucleated RBC % Sodium Potassium Chloride Carbon Dioxide Anion Gap BUN Creatinine Estim Creat Clear Calc Estimated GFR Glucose POC Capillary Glucose 154 H 145 H Calcium Total Bilirubin AST ALT Alkaline Phosphatase Total Protein Albumin
== END 2025-02-20 17:55 | DRG 617 ==
LOC: ANHED 20:36 → ANH3MEDSUR 22:34
PROVIDERS: Nurse Practitioner; Nurse Practitioner Gerontology; Physician Assistant; Surgery; Admitting Provider Internal Medicine; Emergency Provider Student in an Organized Health Care Education/Training Program; PCP Nurse Practitioner Family
PROC: 0Y6M0ZF Detachment at Right Foot, Partial 5th Ray, Open Approach (ICD-10-PCS; principal; 2025-02-09 16:30)
PROC: 0Y6M0ZF Detachment at Right Foot, Partial 5th Ray, Open Approach (ICD-10-PCS; 2025-02-09 16:30)
DX: E11.69 Type 2 diabetes mellitus with other specified complication (principal); I48.20 Chronic atrial fibrillation, unspecified; M86.8X7 Other osteomyelitis, ankle and foot; M84.474A Pathological fracture, right foot, initial encounter for fracture; Z16.24 Resistance to multiple antibiotics; L02.611 Cutaneous abscess of right foot; J44.9 Chronic obstructive pulmonary disease, unspecified; E66.01 Morbid (severe) obesity due to excess calories; F41.9 Anxiety disorder, unspecified; D64.9 Anemia, unspecified; F32.A Depression, unspecified; F20.9 Schizophrenia, unspecified; I25.10 Atherosclerotic heart disease of native coronary artery without angina pectoris; I12.9 Hypertensive chronic kidney disease with stage 1 through stage 4 chronic kidney disease, or unspecified chronic kidney disease; E11.22 Type 2 diabetes mellitus with diabetic chronic kidney disease; N18.30 Chronic kidney disease, stage 3 unspecified; E11.40 Type 2 diabetes mellitus with diabetic neuropathy, unspecified; G47.33 Obstructive sleep apnea (adult) (pediatric); R20.2 Paresthesia of skin; E11.621 Type 2 diabetes mellitus with foot ulcer; L97.514 Non-pressure chronic ulcer of other part of right foot with necrosis of bone; B96.5 Pseudomonas (aeruginosa) (mallei) (pseudomallei) as the cause of diseases classified elsewhere; F17.210 Nicotine dependence, cigarettes, uncomplicated; Z79.82 Long term (current) use of aspirin; Z79.84 Long term (current) use of oral hypoglycemic drugs; Z68.39 Body mass index [BMI] 39.0-39.9, adult; Z79.01 Long term (current) use of anticoagulants; Z95.5 Presence of coronary angioplasty implant and graft; Z99.89 Dependence on other enabling machines and devices; E11.65 Type 2 diabetes mellitus with hyperglycemia; E11.628 Type 2 diabetes mellitus with other skin complications
CPT/HCPCS: 36415; 36569; 73630; 80048; 80053; 80202; 82948; 83036; 83605; 85025; 85027; 85610; 85652; 85730; 86140; 87040; 87070; 87075; 87186; 87205; 88305; 88311; 93005; 96361; 96365; 97110; 97162; 97166; 97530; 97535; 99285; A9270; C1751; G0378; J0692; J1815; J1836; J1956; J2003; J3010; J3373; J7030; J7120